=== PATIENT | female | born 1930 | race Asian ===

== ENCOUNTER 2018-02-14 15:24 | Inpatient (IN) | payer OTHER ==
[2018-02-14 15:34] VITALS: BMI 23.8
[2018-02-14 17:24] LABS: BASO % 1.1 % (0-2.0); HEMATOCRIT 34.7 % (32.4-45.2); HEMOGLOBIN 11.7 GM/dL (10.7-15.3); LYMPH % 24.6 % (8-40); MCH 30.2 pg (25.7-33.7); MCHC 33.7 g/dl (32.0-36.0); MEAN CELL VOLUME 89.7 fl (80-96); MONO % 11.1 % (3.8-10.2); NEUT % 60.2 % (42.8-82.8); PLATELET COUNT 264 K/MM3 (134-434); RBC 3.87 M/mm3 (3.60-5.2); RDW 14.2 % (11.6-15.6); WHITE BLOOD COUNT 5.6 K/mm3 (4.0-10.0)
[2018-02-14 17:28] LABS: INR 0.97 (0.82-1.09)
--- NOTE | 2018-02-14 17:32 | PDOC ---
Attending Attestation - Resident Resident Name: Gordo Doherty - ED Attending Attestation I have performed the following: I have examined & evaluated the patient, The case was reviewed & discussed with the resident, I agree w/resident's findings & plan, Exceptions are as noted - HPI HPI: 02/14/18 18:49 Ms Lazaro is an 87 yo F with a history of HTN, HLD, Seizure D/o, Alzheimers dementia Presenting to the ER with reported chest pain Pt is poor historian and can not give historical details about what happened today Pt pmd sent her to the Er unable to contact him for any additional details - Physicial Exam PE: 02/14/18 18:51 GENERAL: The patient is in no acute distress, pleasant, awake and alert. HEAD: Normal EYES: PERRLA, EOMI, sclera anicteric, conjunctiva clear. ENT: Ears normal, nares patent, oropharynx clear without exudates. Moist mucous membranes. LUNGS: Breath sounds equal, clear to auscultation bilaterally. HEART: Bradycardiac, no murmur appreciated ABDOMEN: Soft, nontender, normoactive bowel sounds. No guarding, no rebound. EXTREMITIES: Normal range of motion, no edema. NEUROLOGICAL: Cranial nerves II through XII grossly intact. Normal speech. No focal neurological deficits. - Medical Decision Making 02/14/18 18:53 87 yo F with reported chest pain Laboratory Tests 02/14/18 02/14/18 02/14/18 16:42 16:42 16:42 WBC 5.6 Hgb 11.7 Hct 34.7 Plt Count 264 Neutrophils % 60.2 Lymphocytes % 24.6 INR 0.97 BUN 36 H Creatinine 1.3 H Creatine Kinase 132 Troponin I < 0.02 EKG: Junctional rhythm rate of 49 bpm, no st elevations or depressions, t wave upright Laboratory Tests 10/08/12 02/14/18 12:40 16:42 Creatinine 0.6 1.3 H Creatinine elevation however last time labs drawn was 6 years ago... clinical impression: chest pain, initial presentation bradycardia, initial presentation
--- NOTE | 2018-02-14 17:32 | PDOC ---
History of Present Illness - General Chief Complaint: Chest Pain Stated Complaint: CHEST PAIN,AMS Time Seen by Provider: 02/14/18 16:08 History Source: Patient Exam Limitations: No Limitations - History of Present Illness Initial Comments: 02/14/18 18:15 The patient is a 87F with a PMH of dementia (nonverbal), HLD who presents with her son. The son states that they called Dr. William Martinez who recommended the patient to come to our ER. The patient denies any acute complaints but cannot verbalize anything. The son denies any acute complaints but states that the patient has had generalized weakness, as well as R leg weakness which has been going on for months. ROS cannot be completed 2/2 patient's nonverbal state. Past History - Past Medical History Allergies/Adverse Reactions: Allergies Allergy/AdvReac Type Severity Reaction Status Date / Time No Known Allergies Allergy Verified 02/14/18 15:29 Home Medications: Ambulatory Orders Donepezil HCl [Aricept Odt] 10 mg PO HS 09/18/12 Escitalopram Oxalate [Lexapro] 10 mg PO DAILY 09/18/12 Olmesartan Medoxomil [Benicar] 10 mg PO DAILY 09/18/12 Phenobarbital 30 mg PO BID 09/18/12 levETIRAcetam [Keppra] 500 mg PO BID 09/18/12 Acetaminophen Oral Solution [Tylenol *Oral Solution*] 650 mg PO Q4H 10/08/12 Bisacodyl [Dulcolax] 10 mg RC DAILY PRN 10/08/12 Cholecalciferol (Vitamin D3) [Vitamin D] 2,000 unit PO DAILY 10/08/12 Docusate Sodium [Colace] 100 mg PO DAILY 10/08/12 Docusate Sodium [Colace] 200 mg PO BID 10/08/12 Mag Hydrox/Al Hydrox/Simeth [Mylanta] 30 ml GT Q4H PRN 10/08/12 Magnesium Hydroxide [Milk of Magnesia] 30 ml PO DAILY PRN 10/08/12 Multivitamins with Iron [Tab-A-Emeka with Iron] 1 each PO DAILY 10/08/12 Polyethylene Glycol 3350 [Miralax 255 gm Btl] 17 gm PO DAILY 10/08/12 COPD: No Dementia: Yes HTN: Yes Hypercholesterolemia: Yes Seizures: Yes - Suicide/Smoking/Psychosocial Hx Smoking Status: No Smoking History: Never smoked Number of Cigarettes Smoked Daily: 0 Hx Alcohol Use: No Drug/Substance Use Hx: No Review of Systems - Review of Systems Able to Perform ROS?: No (nonverbal) Is the patient limited Romanian proficient: No *Physical Exam - Vital Signs Last Vital Signs Temp Pulse Resp BP Pulse Ox 98.3 F 49 L 19 127/42 99 02/14/18 15:30 02/14/18 15:30 02/14/18 15:30 02/14/18 15:30 02/14/18 15:30 - Physical Exam Comments: 02/14/18 18:32 GENERAL: Well developed, well nourished. Awake and alert. No acute distress. HEENT: Normocephalic, atraumatic. Hearing grossly normal. Moist mucous membranes. PERRLA, EOMI. No conjunctival pallor. Sclera are non-icteric. NECK: Supple. Full ROM. No JVD. CARDIOVASCULAR: Bradycardic with regular rhythm. No murmurs, rubs, or gallops. PULMONARY: No evidence of respiratory distress. Lungs clear to auscultation bilaterally. No wheezing, rales or rhonchi. ABDOMINAL: Soft. Non-tender. Non-distended. No rebound or guarding. MUSCULOSKELETAL: Normal range of motion at all joints. No bony deformities or tenderness. EXTREMITIES: No cyanosis. No clubbing. No edema. No calf tenderness. SKIN: Warm and dry. Normal capillary refill. No rashes. No jaundice. NEUROLOGICAL: Alert, awake, appropriate. Cranial nerves 2-12 intact. PSYCHIATRIC: Cooperative. Good eye contact. Appropriate mood and affect. Heart Score/ECG Review #1 ECG reviewed & interpreted by me at: 15:30 General ECG Interpretation: Sinus Rhythm, Normal Rate, Normal Intervals, No acute ischemic changes Compared to previous ECG there are: Changes noted (Previous EKG is NSR in 2012) 02/14/18 18:34 Junctional rhythm Rate 49 QRS 64 QTc 431 No acute ischemic changes ED Treatment Course - LABORATORY CBC & Chemistry Diagram: 02/14/18 16:42 02/14/18 16:42 - RADIOLOGY Radiology Studies Ordered: Category Date Time Status CHEST X-RAY PORTABLE* [RAD] Stat Radiology 02/14/18 16:36 Ordered Medical Decision Making - Medical Decision Making 02/14/18 16:33 The patient is an 87F with a PMH of Alzheimer's dementia who presents to the ER under the instruction of Dr. Martinez for an unsure reason. The son cannot provide any history as he does not know why the patient was sent here. Dr. Martinez has been paged. 02/14/18 18:45 I have spoken with Dr. Martinez who states that the patient has had CP that has been intermittent and worsening today and he is requesting her admission. Dr. Crespo accepts admission for a [facility] bed. *DC/Admit/Observation/Transfer Diagnosis at time of Disposition: Chest pain Qualifiers: Chest pain type: unspecified Qualified Code(s): R07.9 - Chest pain, unspecified - Discharge Dispostion Condition at time of disposition: Guarded Admit: Yes - Referrals - Patient Instructions - Post Discharge Activity
[2018-02-14 17:54] LABS: ALBUMIN 3.9 g/dl (3.4-5.0); ANION GAP 7 (8-16); BILIRUBIN,TOTAL 0.3 mg/dL (0.2-1.0); BLOOD UREA NITROGEN 36 mg/dL (7-18); CALCIUM 8.9 mg/dL (8.5-10.1); CHLORIDE 103 mmol/L (98-107); CO2 29 mmol/L (21-32); CREATININE 1.3 mg/dL (0.55-1.02); GLUCOSE,RANDOM 92 mg/dL (74-106); SGOT/AST 29 U/L (15-37); SGPT/ALT 8 U/L (12-78); SODIUM 139 mmol/L (136-145); TOT PROT 7.4 g/dl (6.4-8.2)
[2018-02-14 17:57] LABS: ALK PHOS 75 U/L (45-117)
[2018-02-14 22:21] LABS: URINE APPEARANCE CLEAR; URINE BILIRUBIN NEGATIVE (<2.0 mg/dL); URINE BLOOD NEGATIVE (NEGATIVE); URINE COLOR YELLOW; URINE GLUCOSE (UA) NEGATIVE (NEGATIVE); URINE KETONE TRACE (NEGATIVE); URINE LEUK ESTERASE NEGATIVE (NEGATIVE); URINE NITRITE NEGATIVE (NEGATIVE); URINE PROTEIN NEGATIVE (NEGATIVE)
[2018-02-15] MEDS ORDERED: MAGNESIUM HYDROX 2400MG/30ML ORAL SUSPENSION 30 ML CUP PO PRN (02:15)
[2018-02-15] MEDS: PHENobarbital 30 MG TABLET PO SCH ×2 (06:50→21:22)
[2018-02-15] MEDS: MULTIVITAMINS THER W-MINERALS COMBO TABLET (FP) PO SCH (06:51)
[2018-02-15] MEDS: VALSARTAN 80 MG TABLET (UD) PO SCH (06:51)
[2018-02-15] MEDS: levETIRAcetam 500 MG TABLET (FP) PO SCH ×2 (06:51→21:22)
[2018-02-15] MEDS: CHOLECALCIFEROL (VITAMIN D3) 1,000 UNIT TABLET (FP) PO SCH (06:51)
[2018-02-15] MEDS: DOCUSATE SODIUM 100 MG CAPSULE (FP) PO SCH (06:51)
[2018-02-15] MEDS: ESCITALOPRAM OXALATE 10 MG TABLET (FP) PO SCH (06:51)
[2018-02-15 08:43] LABS: BASO % 1.1 % (0-2.0); EOS % 4.2 % (0-4.5); HEMATOCRIT 32.2 % (32.4-45.2); HEMOGLOBIN 10.6 GM/dL (10.7-15.3); LYMPH % 23.4 % (8-40); MCH 29.7 pg (25.7-33.7); MEAN CELL VOLUME 90.2 fl (80-96); MEAN PLT VOLUME 8.9 fl (7.5-11.1); MONO % 10.8 % (3.8-10.2); NEUT % 60.5 % (42.8-82.8); PLATELET COUNT 242 K/MM3 (134-434); RBC 3.57 M/mm3 (3.60-5.2); RDW 14.5 % (11.6-15.6); WHITE BLOOD COUNT 4.8 K/mm3 (4.0-10.0)
--- NOTE | 2018-02-15 09:21 | EKG ---
Test Reason : Blood Pressure : / mmHG Vent. Rate : 049 BPM Atrial Rate : 300 BPM P-R Int : 000 ms QRS Dur : 064 ms QT Int : 478 ms P-R-T Axes : 000 004 047 degrees QTc Int : 431 ms POOR DATA QUALITY, INTERPRETATION MAY BE ADVERSELY AFFECTED MARKED SINUS BRADYCARDIA ABNORMAL ECG Confirmed by ESTELLA TIJERINA MD ([id number]) on 02/15/2018 9:20:44 AM Referred By: Confirmed By:ESTELLA TIJERINA MD
--- NOTE | 2018-02-15 10:18 | CON.CARD ---
Consult Consult Specialty:: Cardiology (Coverage for Dr. Carver) Referred by:: Dr. Crespo Reason for Consultation:: Cardiac evaluation - History of Present Illness Chief Complaint: Chest pain History of Present Illness: Patient is an 87 year old female with underlying history of hypertension, hypercholesterolemia, seizure disorder and organic brain/dementia who presents to [facility] with chest pain reported on ER note. She is nonverbal and is not able to provide any history. ECG revealed probable marked sinus bradycardia instead of junctional as read by the automatic reading on ECG. She appears to be comfortable this am on telemetry. No events were reported last night. 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 Cardio/Vascular: Yes: HTN - Past Surgical History Past Surgical History: Yes: None - Alcohol/Substance Use Hx Alcohol Use: No - Smoking History Smoking history: Never smoked Aproximately how many cigarettes per day: 0 Home Medications - Allergies Allergies/Adverse Reactions: Allergies Allergy/AdvReac Type Severity Reaction Status Date / Time No Known Allergies Allergy Verified 02/14/18 15:29 - Home Medications Home Medications: Ambulatory Orders Donepezil HCl [Aricept Odt] 10 mg PO HS 09/18/12 Escitalopram Oxalate [Lexapro] 10 mg PO DAILY 09/18/12 Olmesartan Medoxomil [Benicar] 10 mg PO DAILY 09/18/12 Phenobarbital 30 mg PO BID 09/18/12 levETIRAcetam [Keppra] 500 mg PO BID 09/18/12 Acetaminophen Oral Solution [Tylenol *Oral Solution*] 650 mg PO Q4H 10/08/12 Bisacodyl [Dulcolax] 10 mg RC DAILY PRN 10/08/12 Cholecalciferol (Vitamin D3) [Vitamin D] 2,000 unit PO DAILY 10/08/12 Docusate Sodium [Colace] 100 mg PO DAILY 10/08/12 Docusate Sodium [Colace] 200 mg PO BID 10/08/12 Mag Hydrox/Al Hydrox/Simeth [Mylanta] 30 ml GT Q4H PRN 10/08/12 Magnesium Hydroxide [Milk of Magnesia] 30 ml PO DAILY PRN 10/08/12 Multivitamins with Iron [Tab-A-Emeka with Iron] 1 each PO DAILY 10/08/12 Polyethylene Glycol 3350 [Miralax 255 gm Btl] 17 gm PO DAILY 10/08/12 Family Disease History - Family Disease History Family History: Denies Review of Systems Unable to obtain ROS, reason: Unable to obtain Vital Signs: Vital Signs Temperature 97.6 F 02/15/18 10:00 Pulse Rate 56 L 02/15/18 10:00 Respiratory Rate 16 02/15/18 10:00 Blood Pressure 157/61 02/15/18 10:00 O2 Sat by Pulse Oximetry (%) 98 02/15/18 09:00 Neck: Yes: Supple Respiratory: Yes: Diminished Gastrointestinal: Yes: Normal Bowel Sounds, Soft. No: Tenderness Cardiovascular: Yes: Regular Rate and Rhythm, Bradycardia JVD: No Carotid Bruit: No PMI: Non-Displaced Heart Sounds: Yes: S1, S2. No: Gallop Edema: No - Other Data Labs, Other Data: CBC, BMP 02/15/18 07:40 02/14/18 16:42 INR, PTT INR 0.97 (0.82-1.09) 02/14/18 16:42 Troponin, BNP 02/14/18 02/15/18 16:42 03:00 Troponin I < 0.02 < 0.02 Laboratory Results - last 24 hr 02/14/18 02/14/18 02/14/18 16:42 16:42 16:42 WBC 5.6 RBC 3.87 Hgb 11.7 Hct 34.7 MCV 89.7 MCH 30.2 MCHC 33.7 RDW 14.2 Plt Count 264 MPV 9.0 D Neutrophils % 60.2 Lymphocytes % 24.6 Monocytes % 11.1 H Eosinophils % 3.0 Basophils % 1.1 D PT with INR 11.00 INR 0.97 Sodium 139 Potassium 4.0 Chloride 103 Carbon Dioxide 29 Anion Gap 7 L BUN 36 H Creatinine 1.3 H Creat Clearance w eGFR 38.93 Random Glucose 92 Calcium 8.9 Total Bilirubin 0.3 AST 29 ALT 8 L Alkaline Phosphatase 75 Creatine Kinase 132 Troponin I < 0.02 Total Protein 7.4 Albumin 3.9 TSH Urine Color Urine Appearance Urine pH Ur Specific [place] Urine Protein Urine Glucose (UA) Urine Ketones Urine Blood Urine Nitrite Urine Bilirubin Urine Urobilinogen Ur Leukocyte Esterase 04/07/18 04/08/18 04/08/18 21:13 03:00 07:40 WBC 4.8 RBC 3.57 L Hgb 10.6 L Hct 32.2 L MCV 90.2 MCH 29.7 MCHC 33.0 RDW 14.5 Plt Count 242 MPV 8.9 Neutrophils % 60.5 Lymphocytes % 23.4 Monocytes % 10.8 H Eosinophils % 4.2 Basophils % 1.1 PT with INR INR Sodium Potassium Chloride Carbon Dioxide Anion Gap BUN Creatinine Creat Clearance w eGFR Random Glucose Calcium Total Bilirubin AST ALT Alkaline Phosphatase Creatine Kinase 145 Troponin I < 0.02 Total Protein Albumin TSH Urine Color Yellow Urine Appearance Clear Urine pH 5.0 Ur Specific [place] 1.018 Urine Protein Negative Urine Glucose (UA) Negative Urine Ketones Trace H Urine Blood Negative Urine Nitrite Negative Urine Bilirubin Negative Urine Urobilinogen 2.0 H Ur Leukocyte Esterase Negative Sinus bradycardia, no ST-T abnormality Imaging - Results Chest X-ray: Report Reviewed (Cardiomegaly, atelectasis) EKG: Report Reviewed Problem List - Problems (1) Sinus bradycardia Code(s): R00.1 - BRADYCARDIA, UNSPECIFIED (2) Seizure disorder Code(s): G40.909 - EPILEPSY, UNSP, NOT INTRACTABLE, WITHOUT STATUS EPILEPTICUS (3) Organic brain syndrome Code(s): F09 - UNSP MENTAL DISORDER DUE TO KNOWN PHYSIOLOGICAL CONDITION (4) Dementia Code(s): F03.90 - UNSPECIFIED DEMENTIA WITHOUT BEHAVIORAL DISTURBANCE (5) Chest pain Code(s): R07.9 - CHEST PAIN, UNSPECIFIED Qualifiers: Chest pain type: unspecified Qualified Code(s): R07.9 - Chest pain, unspecified Assessment/Plan 1. Chest pain syndrome 2. Hypertension 3. Seizure disorder 4. Organic brain syndrome/dementia PLAN: 1. Continue Valsartan (alternative to Olmesartan) and up-titrate 2. Avoid AV braina agent in view of bradycardia 3. Continue telemetry monitoring 4. Seizure medications 5. Transthoracic echocardiography to assess LV/RV and valvular function Further plans are to follow. Discussed with her daughter via telephone Toni Mello MD
--- NOTE | 2018-02-15 12:02 | HP ---
Admitting History and Physical - Admission History of Present Illness: Pt is a 87 y/o female w/ PMH significant for HTN, HLD, seizure dz and dementia. Pt unable to give any history. Pt lives at home w/ her and for the past few weeks has been more confused. As per family pt also has been having intermittent chest pain. Family denies any cough/SOB/wheezing/fever/chills. 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 Cardiovascular: Yes: HTN, Hyperlipdemia Psych: Yes: Depression - Past Surgical History Past Surgical History: Yes: None - Smoking History Smoking history: Never smoked Aproximately how many cigarettes per day: 0 - Alcohol/Substance Use Hx Alcohol Use: No Home Medications - Allergies Allergies/Adverse Reactions: Allergies Allergy/AdvReac Type Severity Reaction Status Date / Time No Known Allergies Allergy Verified 02/14/18 15:29 - Home Medications Home Medications: Ambulatory Orders Donepezil HCl [Aricept Odt] 10 mg PO HS 09/18/12 Escitalopram Oxalate [Lexapro] 10 mg PO DAILY 09/18/12 Olmesartan Medoxomil [Benicar] 10 mg PO DAILY 09/18/12 Phenobarbital 30 mg PO BID 09/18/12 levETIRAcetam [Keppra] 500 mg PO BID 09/18/12 Acetaminophen Oral Solution [Tylenol *Oral Solution*] 650 mg PO Q4H 10/08/12 Bisacodyl [Dulcolax] 10 mg RC DAILY PRN 10/08/12 Cholecalciferol (Vitamin D3) [Vitamin D] 2,000 unit PO DAILY 10/08/12 Docusate Sodium [Colace] 100 mg PO DAILY 10/08/12 Docusate Sodium [Colace] 200 mg PO BID 10/08/12 Mag Hydrox/Al Hydrox/Simeth [Mylanta] 30 ml GT Q4H PRN 10/08/12 Magnesium Hydroxide [Milk of Magnesia] 30 ml PO DAILY PRN 10/08/12 Multivitamins with Iron [Tab-A-Emeka with Iron] 1 each PO DAILY 10/08/12 Polyethylene Glycol 3350 [Miralax 255 gm Btl] 17 gm PO DAILY 10/08/12 Family Disease History - Family Disease History Family History: Unable to Obtain (Dementia) Review of Systems Unable to obtain ROS, reason: Dementia Physical Examination Vital Signs: Vital Signs Temperature 97.6 F 02/15/18 10:00 Pulse Rate 56 L 02/15/18 10:00 Respiratory Rate 16 02/15/18 10:00 Blood Pressure 157/61 02/15/18 10:00 O2 Sat by Pulse Oximetry (%) 98 02/15/18 09:00 Constitutional: Yes: No Distress HENT: Yes: WNL Neck: Yes: WNL Cardiovascular: Yes: WNL, Regular Rate and Rhythm Respiratory: Yes: WNL, Regular, CTA Bilaterally Gastrointestinal: Yes: WNL, Normal Bowel Sounds, Soft Extremities: Yes: WNL Edema: No Neurological: Yes: Other (Awake) ...Motor Strength: WNL Labs: CBC, BMP 02/15/18 07:40 02/14/18 16:42 Problem List - Problems (1) Chest pain Assessment/Plan: Admit to tlee Serial cpk/troponin to r/o ACS Cardio consult Check echo Code(s): R07.9 - CHEST PAIN, UNSPECIFIED Qualifiers: Chest pain type: unspecified Qualified Code(s): R07.9 - Chest pain, unspecified (2) ARF (acute renal failure) Assessment/Plan: ?Due to dehydration Cont IVF Code(s): N17.9 - ACUTE KIDNEY FAILURE, UNSPECIFIED (3) HTN (hypertension) Assessment/Plan: BP stable Cont diovan Code(s): I10 - ESSENTIAL (PRIMARY) HYPERTENSION (4) HLD (hyperlipidemia) Code(s): E78.5 - HYPERLIPIDEMIA, UNSPECIFIED (5) Dementia Assessment/Plan: Cont aricept Code(s): F03.90 - UNSPECIFIED DEMENTIA WITHOUT BEHAVIORAL DISTURBANCE (6) Seizure disorder Assessment/Plan: Cont phenobarb/keppra Code(s): G40.909 - EPILEPSY, UNSP, NOT INTRACTABLE, WITHOUT STATUS EPILEPTICUS
--- NOTE | 2018-02-15 18:37 | CONSULT ---
Consult - text type - Consultation Consultation Note: NEUROLOGY CONSULTATION is greatly appreciated: This 87 yo RH woman with h/o HTN, Chol, depression and severe OMS with seizure disorder is maintained on valsartan, donepezil, lexapro, levetiracetam (500 BID) and Phenobarbital (30 BID). Family complained to PMD (Julianne Martinez) about deterioration in speech and increased weakness of the right leg. No obvious sign of infection. ELISA: No bruits. Cor reg. No skin breakdown NEURO: Awake, alert, attentive and cooperative. Follows no commands. Repeats "Hello." No frontal release findings. Decreased blink to threat from the right. No facial. Gag OK Right hand is contracted. Increased tone (rigidity) R>L. Right foot rests internally rotated. Depressed reflexes. Right Babinski. Withdraws all fours to pinch. IMP: Moderate, bilateral, cerebral dysfunction. 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 Thank you very much, Grupo Medina MD
[2018-02-15] MEDS: DONEPEZIL HCL 10 MG TABLET (FP) PO SCH (21:22)
[2018-02-15] MEDS: HEPARIN NA (PORCINE) 5,000 UNITS/ML 1ML VIAL SQ SCH (21:22)
[2018-02-16 06:31] LABS: EOS % 3.6 % (0-4.5); HEMATOCRIT 31.5 % (32.4-45.2); HEMOGLOBIN 10.8 GM/dL (10.7-15.3); LYMPH % 37.4 % (8-40); MCH 30.7 pg (25.7-33.7); MCHC 34.2 g/dl (32.0-36.0); MEAN CELL VOLUME 89.8 fl (80-96); MEAN PLT VOLUME 9.2 fl (7.5-11.1); MONO % 11.7 % (3.8-10.2); NEUT % 46.3 % (42.8-82.8); PLATELET COUNT 250 K/MM3 (134-434); RBC 3.51 M/mm3 (3.60-5.2); RDW 14.2 % (11.6-15.6); WHITE BLOOD COUNT 5.8 K/mm3 (4.0-10.0)
[2018-02-16 07:08] LABS: ALBUMIN 3.6 g/dl (3.4-5.0); ANION GAP 9 (8-16); BILIRUBIN,TOTAL 0.4 mg/dL (0.2-1.0); BLOOD UREA NITROGEN 41 mg/dL (7-18); CHLORIDE 106 mmol/L (98-107); CO2 28 mmol/L (21-32); CREATININE 1.6 mg/dL (0.55-1.02); GLUCOSE,RANDOM 80 mg/dL (74-106); POTASSIUM 4.5 mmol/L (3.5-5.1); SGOT/AST 31 U/L (15-37); SGPT/ALT 7 U/L (12-78); SODIUM 143 mmol/L (136-145)
[2018-02-16 07:09] LABS: ALK PHOS 65 U/L (45-117); TOT PROT 6.8 g/dl (6.4-8.2)
--- NOTE | 2018-02-16 08:34 | PN ---
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, Physician Chief Complaint: TELE: Sinus john Enzymes negative x 2 - Current Medication List Current Medications: Active Medications Cholecalciferol (Vitamin D3 -) 2,000 unit PO DAILY [facility] Last Admin: 02/15/18 06:51 Dose: 2,000 unit Docusate Sodium (Colace -) 100 mg PO DAILY [facility] Last Admin: 02/15/18 06:51 Dose: 100 mg Donepezil HCl (Aricept -) 10 mg PO HS [facility] Last Admin: 02/15/18 21:22 Dose: 10 mg Escitalopram Oxalate (Lexapro -) 10 mg PO DAILY [facility] Last Admin: 02/15/18 06:51 Dose: 10 mg Heparin Sodium (Porcine) (Heparin -) 5,000 unit SQ BID [facility] Last Admin: 02/15/18 21:22 Dose: 5,000 unit Levetiracetam (Keppra -) 500 mg PO BID [facility] Last Admin: 02/15/18 21:22 Dose: 500 mg Magnesium Hydroxide (Milk Of Magnesia -) 30 ml PO DAILY PRN PRN Reason: CONSTIPATION Multivitamins/Minerals (Theragran-M) 1 each PO DAILY [facility] Last Admin: 02/15/18 06:51 Dose: 1 each Phenobarbital (Phenobarbital -) 30 mg PO BID [facility] Last Admin: 02/15/18 21:22 Dose: 30 mg Valsartan (Diovan -) 80 mg PO DAILY [facility] Last Admin: 02/15/18 06:51 Dose: 80 mg - Objective Vital Signs: Vital Signs Temperature 97.4 F L 02/16/18 06:00 Pulse Rate 64 02/16/18 06:00 Respiratory Rate 20 02/16/18 06:00 Blood Pressure 108/72 02/16/18 06:00 O2 Sat by Pulse Oximetry (%) 95 02/15/18 21:00 Constitutional: Yes: Calm Cardiovascular: Yes: Regular Rate and Rhythm Respiratory: Yes: CTA Bilaterally Gastrointestinal: Yes: Soft Edema: No Neurological: Yes: Alert, Oriented, Other (nonverbal) Labs: CBC, BMP 02/16/18 06:00 02/16/18 06:00 INR, PTT INR 0.97 (0.82-1.09) 02/14/18 16:42 - ....Imaging EKG: Image Reviewed Assessment/Plan 1. Chest pain syndrome 2. Hypertension 3. Seizure disorder 4. Organic brain syndrome/dementia PLAN: 1. Continue Valsartan (alternative to Olmesartan) and up-titrate 2. Avoid AV briana agent in view of bradycardia 3. D/C Tele 4. Seizure medications 5. Transthoracic echocardiography to assess LV/RV and valvular function
[2018-02-16] MEDS: MULTIVITAMINS THER W-MINERALS COMBO TABLET (FP) PO SCH (09:14)
[2018-02-16] MEDS: levETIRAcetam 500 MG TABLET (FP) PO SCH ×2 (09:14→21:34)
[2018-02-16] MEDS: VALSARTAN 80 MG TABLET (UD) PO SCH (09:14)
[2018-02-16] MEDS: PHENobarbital 30 MG TABLET PO SCH ×2 (09:14→21:34)
[2018-02-16] MEDS: ESCITALOPRAM OXALATE 10 MG TABLET (FP) PO SCH (09:15)
[2018-02-16] MEDS: CHOLECALCIFEROL (VITAMIN D3) 1,000 UNIT TABLET (FP) PO SCH (09:15)
[2018-02-16] MEDS: DOCUSATE SODIUM 100 MG CAPSULE (FP) PO SCH (09:15)
[2018-02-16] MEDS: HEPARIN NA (PORCINE) 5,000 UNITS/ML 1ML VIAL SQ SCH ×2 (09:40→21:34)
[2018-02-16] MEDS: DONEPEZIL HCL 10 MG TABLET (FP) PO SCH (21:34)
--- NOTE | 2018-02-16 23:44 | PN ---
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, Physician - Current Medication List Current Medications: Active Medications Cholecalciferol (Vitamin D3 -) 2,000 unit PO DAILY [facility] Last Admin: 02/16/18 09:15 Dose: 2,000 unit Docusate Sodium (Colace -) 100 mg PO DAILY [facility] Last Admin: 02/16/18 09:15 Dose: 100 mg Donepezil HCl (Aricept -) 10 mg PO HS [facility] Last Admin: 02/16/18 21:34 Dose: 10 mg Escitalopram Oxalate (Lexapro -) 10 mg PO DAILY [facility] Last Admin: 02/16/18 09:15 Dose: 10 mg Heparin Sodium (Porcine) (Heparin -) 5,000 unit SQ BID [facility] Last Admin: 02/16/18 21:34 Dose: 5,000 unit Levetiracetam (Keppra -) 500 mg PO BID [facility] Last Admin: 02/16/18 21:34 Dose: 500 mg Magnesium Hydroxide (Milk Of Magnesia -) 30 ml PO DAILY PRN PRN Reason: CONSTIPATION Multivitamins/Minerals (Theragran-M) 1 each PO DAILY [facility] Last Admin: 02/16/18 09:14 Dose: 1 each Phenobarbital (Phenobarbital -) 30 mg PO BID [facility] Last Admin: 02/16/18 21:34 Dose: 30 mg Valsartan (Diovan -) 80 mg PO DAILY [facility] Last Admin: 02/16/18 09:14 Dose: 80 mg - Objective Vital Signs: Vital Signs Temperature 97.7 F 02/16/18 20:35 Pulse Rate 57 L 02/16/18 20:35 Respiratory Rate 20 02/16/18 20:36 Blood Pressure 136/60 02/16/18 20:35 O2 Sat by Pulse Oximetry (%) 94 L 02/16/18 20:36 Labs: CBC, BMP 02/16/18 06:00 02/16/18 06:00 INR, PTT INR 0.97 (0.82-1.09) 02/14/18 16:42 Problem List - Problems (1) Chest pain Code(s): R07.9 - CHEST PAIN, UNSPECIFIED Qualifiers: Chest pain type: unspecified Qualified Code(s): R07.9 - Chest pain, unspecified (2) ARF (acute renal failure) Code(s): N17.9 - ACUTE KIDNEY FAILURE, UNSPECIFIED (3) HTN (hypertension) Code(s): I10 - ESSENTIAL (PRIMARY) HYPERTENSION (4) HLD (hyperlipidemia) Code(s): E78.5 - HYPERLIPIDEMIA, UNSPECIFIED (5) Dementia Code(s): F03.90 - UNSPECIFIED DEMENTIA WITHOUT BEHAVIORAL DISTURBANCE (6) Seizure disorder Code(s): G40.909 - EPILEPSY, UNSP, NOT INTRACTABLE, WITHOUT STATUS EPILEPTICUS
--- NOTE | 2018-02-17 09:23 | PN ---
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, Physician Chief Complaint: resting comfortably Having echo done. - Current Medication List Current Medications: Active Medications Cholecalciferol (Vitamin D3 -) 2,000 unit PO DAILY [facility] Last Admin: 02/16/18 09:15 Dose: 2,000 unit Docusate Sodium (Colace -) 100 mg PO DAILY [facility] Last Admin: 02/16/18 09:15 Dose: 100 mg Donepezil HCl (Aricept -) 10 mg PO HS [facility] Last Admin: 02/16/18 21:34 Dose: 10 mg Escitalopram Oxalate (Lexapro -) 10 mg PO DAILY [facility] Last Admin: 02/16/18 09:15 Dose: 10 mg Heparin Sodium (Porcine) (Heparin -) 5,000 unit SQ BID [facility] Last Admin: 02/16/18 21:34 Dose: 5,000 unit Levetiracetam (Keppra -) 500 mg PO BID [facility] Last Admin: 02/16/18 21:34 Dose: 500 mg Magnesium Hydroxide (Milk Of Magnesia -) 30 ml PO DAILY PRN PRN Reason: CONSTIPATION Multivitamins/Minerals (Theragran-M) 1 each PO DAILY [facility] Last Admin: 02/16/18 09:14 Dose: 1 each Phenobarbital (Phenobarbital -) 30 mg PO BID [facility] Last Admin: 02/16/18 21:34 Dose: 30 mg Valsartan (Diovan -) 80 mg PO DAILY [facility] Last Admin: 02/16/18 09:14 Dose: 80 mg - Objective Vital Signs: Vital Signs Temperature 97.9 F 02/17/18 05:48 Pulse Rate 55 L 02/17/18 05:48 Respiratory Rate 20 02/17/18 05:48 Blood Pressure 131/59 02/17/18 05:48 O2 Sat by Pulse Oximetry (%) 94 L 02/16/18 20:36 Constitutional: Yes: Calm Cardiovascular: Yes: Regular Rate and Rhythm Respiratory: Yes: CTA Bilaterally Gastrointestinal: Yes: Soft Edema: No Neurological: Yes: Alert Labs: CBC, BMP 02/16/18 06:00 02/16/18 06:00 INR, PTT INR 0.97 (0.82-1.09) 02/14/18 16:42 Laboratory Tests 02/14/18 02/15/18 02/16/18 16:42 03:00 06:00 WBC Hgb Plt Count Sodium 143 Potassium 4.5 Creatinine 1.6 H Creatine Kinase 132 145 Troponin I < 0.02 < 0.02 02/16/18 02/16/18 06:00 06:00 WBC 5.8 Hgb 10.8 Plt Count 250 Sodium Potassium Creatinine Creatine Kinase 292 H Troponin I < 0.02 Assessment/Plan Assessment/Plan 1. Chest pain syndrome 2. Hypertension 3. Seizure disorder 4. Organic brain syndrome/dementia PLAN: 1. Continue Valsartan (alternative to Olmesartan), BP well controlled. 2. Avoid AV briana agent in view of bradycardia 3. D/C Tele 4. Seizure medications 5. Transthoracic echocardiography to assess LV/RV and valvular function being done today
[2018-02-17] MEDS: levETIRAcetam 500 MG TABLET (FP) PO SCH ×2 (09:58→21:17)
[2018-02-17] MEDS: ESCITALOPRAM OXALATE 10 MG TABLET (FP) PO SCH (09:59)
[2018-02-17] MEDS: MULTIVITAMINS THER W-MINERALS COMBO TABLET (FP) PO SCH (09:59)
[2018-02-17] MEDS: CHOLECALCIFEROL (VITAMIN D3) 1,000 UNIT TABLET (FP) PO SCH (09:59)
[2018-02-17] MEDS: DOCUSATE SODIUM 100 MG CAPSULE (FP) PO SCH (09:59)
[2018-02-17] MEDS: PHENobarbital 30 MG TABLET PO SCH ×2 (09:59→21:17)
[2018-02-17] MEDS: VALSARTAN 80 MG TABLET (UD) PO SCH (09:59)
[2018-02-17] MEDS: HEPARIN NA (PORCINE) 5,000 UNITS/ML 1ML VIAL SQ SCH ×2 (10:01→21:17)
[2018-02-17] MEDS ORDERED: CEFTRIAXONE 1 GM in DEXTROSE 5%-WATER - 50 ML IVPB SCH (16:00)
[2018-02-17] MEDS ORDERED: DEXTROSE 5%-WATER - 50 ML IVPB ONE (16:32)
[2018-02-17] MEDS ORDERED: cefTRIAXone SODIUM 1 GM VIAL ONE (16:32)
[2018-02-17] MEDS: DONEPEZIL HCL 10 MG TABLET (FP) PO SCH (21:17)
--- NOTE | 2018-02-17 22:20 | PN ---
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, Physician - Current Medication List Current Medications: Active Medications Cholecalciferol (Vitamin D3 -) 2,000 unit PO DAILY [facility] Last Admin: 02/17/18 09:59 Dose: 2,000 unit Docusate Sodium (Colace -) 100 mg PO DAILY [facility] Last Admin: 02/17/18 09:59 Dose: 100 mg Donepezil HCl (Aricept -) 10 mg PO HS [facility] Last Admin: 02/17/18 21:17 Dose: 10 mg Escitalopram Oxalate (Lexapro -) 10 mg PO DAILY [facility] Last Admin: 02/17/18 09:59 Dose: 10 mg Heparin Sodium (Porcine) (Heparin -) 5,000 unit SQ BID [facility] Last Admin: 02/17/18 21:17 Dose: 5,000 unit Ceftriaxone Sodium 1 gm/ (Dextrose) 50 mls @ 100 mls/hr IVPB DAILY [facility] Last Admin: 02/17/18 16:39 Dose: 100 mls/hr Levetiracetam (Keppra -) 500 mg PO BID [facility] Last Admin: 02/17/18 21:17 Dose: 500 mg Magnesium Hydroxide (Milk Of Magnesia -) 30 ml PO DAILY PRN PRN Reason: CONSTIPATION Multivitamins/Minerals (Theragran-M) 1 each PO DAILY [facility] Last Admin: 02/17/18 09:59 Dose: 1 each Phenobarbital (Phenobarbital -) 30 mg PO BID [facility] Last Admin: 02/17/18 21:17 Dose: 30 mg Valsartan (Diovan -) 80 mg PO DAILY [facility] Last Admin: 02/17/18 09:59 Dose: 80 mg - Objective Vital Signs: Vital Signs Temperature 98.8 F 02/17/18 20:04 Pulse Rate 60 02/17/18 20:04 Respiratory Rate 18 02/17/18 21:00 Blood Pressure 121/68 02/17/18 20:04 O2 Sat by Pulse Oximetry (%) 95 02/17/18 21:00 HENT: Yes: WNL Neck: Yes: WNL, Supple Cardiovascular: Yes: WNL, Regular Rate and Rhythm Respiratory: Yes: WNL, Regular, CTA Bilaterally Gastrointestinal: Yes: WNL, Normal Bowel Sounds, Soft Labs: CBC, BMP 02/16/18 06:00 02/16/18 06:00 INR, PTT INR 0.97 (0.82-1.09) 02/14/18 16:42 Problem List - Problems (1) Acute mastoiditis Assessment/Plan: Pt started on IV ceftriaxone ENT consult CT scan head showed acute mastoiditis Code(s): H70.009 - ACUTE MASTOIDITIS WITHOUT COMPLICATIONS, UNSPECIFIED EAR (2) Chest pain Assessment/Plan: Check echo DC tele Code(s): R07.9 - CHEST PAIN, UNSPECIFIED Qualifiers: Chest pain type: unspecified Qualified Code(s): R07.9 - Chest pain, unspecified (3) ARF (acute renal failure) Assessment/Plan: Check labs in am Check renal US Code(s): N17.9 - ACUTE KIDNEY FAILURE, UNSPECIFIED (4) HTN (hypertension) Assessment/Plan: BP stable Cont diovan Code(s): I10 - ESSENTIAL (PRIMARY) HYPERTENSION (5) HLD (hyperlipidemia) Code(s): E78.5 - HYPERLIPIDEMIA, UNSPECIFIED (6) Seizure disorder Assessment/Plan: Cont phenobarb/keppra Code(s): G40.909 - EPILEPSY, UNSP, NOT INTRACTABLE, WITHOUT STATUS EPILEPTICUS (7) Dementia Assessment/Plan: Cont aricept Code(s): F03.90 - UNSPECIFIED DEMENTIA WITHOUT BEHAVIORAL DISTURBANCE
[2018-02-18 06:28] LABS: BASO % 0.8 % (0-2.0); EOS % 4.6 % (0-4.5); HEMATOCRIT 30.4 % (32.4-45.2); HEMOGLOBIN 10.3 GM/dL (10.7-15.3); LYMPH % 27.9 % (8-40); MCH 30.2 pg (25.7-33.7); MCHC 33.9 g/dl (32.0-36.0); MEAN CELL VOLUME 89.1 fl (80-96); MEAN PLT VOLUME 9.1 fl (7.5-11.1); MONO % 13.1 % (3.8-10.2); NEUT % 53.6 % (42.8-82.8); PLATELET COUNT 232 K/MM3 (134-434); RBC 3.41 M/mm3 (3.60-5.2)
[2018-02-18 06:54] LABS: ALBUMIN 3.2 g/dl (3.4-5.0); ALK PHOS 66 U/L (45-117); ANION GAP 9 (8-16); BILIRUBIN,TOTAL 0.3 mg/dL (0.2-1.0); BLOOD UREA NITROGEN 33 mg/dL (7-18); CALCIUM 8.7 mg/dL (8.5-10.1); CHLORIDE 109 mmol/L (98-107); CO2 26 mmol/L (21-32); CREATININE 1.2 mg/dL (0.55-1.02); GLUCOSE,RANDOM 79 mg/dL (74-106); POTASSIUM 4.3 mmol/L (3.5-5.1); SGOT/AST 25 U/L (15-37); SGPT/ALT 8 U/L (12-78); SODIUM 144 mmol/L (136-145); TOT PROT 6.3 g/dl (6.4-8.2)
[2018-02-18] MEDS ORDERED: PT OWN MED DRAWER 7, Y5N ONE (09:44)
[2018-02-18] MEDS: CHOLECALCIFEROL (VITAMIN D3) 1,000 UNIT TABLET (FP) PO SCH (09:52)
[2018-02-18] MEDS: DOCUSATE SODIUM 100 MG CAPSULE (FP) PO SCH (09:53)
[2018-02-18] MEDS: VALSARTAN 80 MG TABLET (UD) PO SCH (09:53)
[2018-02-18] MEDS: MULTIVITAMINS THER W-MINERALS COMBO TABLET (FP) PO SCH (09:53)
[2018-02-18] MEDS: HEPARIN NA (PORCINE) 5,000 UNITS/ML 1ML VIAL SQ SCH ×2 (09:53→21:26)
[2018-02-18] MEDS: levETIRAcetam 500 MG TABLET (FP) PO SCH ×2 (09:53→21:26)
[2018-02-18] MEDS: ESCITALOPRAM OXALATE 10 MG TABLET (FP) PO SCH (09:53)
[2018-02-18] MEDS: PHENobarbital 30 MG TABLET PO SCH ×2 (09:53→21:26)
[2018-02-18] MEDS ORDERED: AMOXICILLIN 500 MG CAPSULE (FP) PO SCH (10:00)
--- NOTE | 2018-02-18 12:31 | CON.ENT ---
Consult Consult Specialty:: ENT Referred by:: Dr. Crespo Reason for Consultation:: mastoiditis noted on CT scan - History of Present Illness Chief Complaint: abnormal CT scan History of Present Illness: 87 yo F admitted for evaluation, hx HTN, hyperlipedemia, seizure disorder and dementia recent change in mental status, also ?chest pain Neurology consultation noted, CT scan of head performed, abnormalities noted including - History Source History Provided By: Medical Record Limitations to Obtaining History: Dementia - Past Medical History [employer]: Yes: Alzheimer's, Dementia, Seizure Cardio/Vascular: Yes: HTN Psych: Yes: Depression - Past Surgical History Past Surgical History: Yes: None - Alcohol/Substance Use Hx Alcohol Use: No - Smoking History Smoking history: Never smoked Aproximately how many cigarettes per day: 0 Home Medications - Allergies Allergies/Adverse Reactions: Allergies Allergy/AdvReac Type Severity Reaction Status Date / Time No Known Allergies Allergy Verified 02/14/18 15:29 - Home Medications Home Medications: Ambulatory Orders Donepezil HCl [Aricept Odt] 10 mg PO HS 09/18/12 Escitalopram Oxalate [Lexapro] 10 mg PO DAILY 09/18/12 Olmesartan Medoxomil [Benicar] 10 mg PO DAILY 09/18/12 Phenobarbital 30 mg PO BID 09/18/12 levETIRAcetam [Keppra] 500 mg PO BID 09/18/12 Acetaminophen Oral Solution [Tylenol *Oral Solution*] 650 mg PO Q4H 10/08/12 Bisacodyl [Dulcolax] 10 mg RC DAILY PRN 10/08/12 Cholecalciferol (Vitamin D3) [Vitamin D] 2,000 unit PO DAILY 10/08/12 Docusate Sodium [Colace] 100 mg PO DAILY 10/08/12 Docusate Sodium [Colace] 200 mg PO BID 10/08/12 Mag Hydrox/Al Hydrox/Simeth [Mylanta] 30 ml GT Q4H PRN 10/08/12 Magnesium Hydroxide [Milk of Magnesia] 30 ml PO DAILY PRN 10/08/12 Multivitamins with Iron [Tab-A-Emeka with Iron] 1 each PO DAILY 10/08/12 Polyethylene Glycol 3350 [Miralax 255 gm Btl] 17 gm PO DAILY 10/08/12 Carbidopa/Levodopa *Cr* 25/100 [Sinemet *Cr* 25/100 -] 25 - 100 mg PO TID Olmesartan/Hydrochlorothiazide [Benicar Hct 20-12.5MG Tab] 1 tab PO DAILY Quetiapine Fumarate [Seroquel -] 25 mg PO BID 02/16/18 Family Disease History - Family Disease History Family History: Unable to Obtain Physical Exam-ENT Vital Signs: Vital Signs Temperature 98.0 F 02/18/18 08:58 Pulse Rate 84 02/18/18 08:58 Respiratory Rate 18 02/18/18 09:00 Blood Pressure 133/66 02/18/18 08:58 O2 Sat by Pulse Oximetry (%) 98 02/18/18 09:00 Constitutional: Yes: No Distress Head: Yes: WNL Face: Yes: WNL Eyes: Yes: WNL Nose: Yes: Edema Nasal Passage: Yes: Pale, Other (prominent right inferior turbinate) Oral/Pharynx: Yes: Other (oral cavity WNL, tongue position 4, pt not able to cooperate for full oropharyngeal exam, limited vocalization, voice clear, no stridor or respiratory distress; missing teeth) Outer Ear: Yes: WNL, Other (NO mastoid edema, erythema or tenderness) Ear Canal: Yes: Cerumen (cerumen impaction 100% right, soft, sticky, subtotally removed with curet, TM not visulized (limited by pt ability to cooperate); clear left canal.) Tympanic Membrane: Yes: WNL (normal left, not visualized right) Neck: Yes: WNL Imaging - Results Chest X-ray: Report Reviewed Cat Scan: Report Reviewed (cerebral atrophy;bilateral mastoid partial opacification, right anterior nasal swelling, rule out polyp, bilateral mild ethmoid sinus mucosal thickening), Image Reviewed (CT scan head: partial opacification of mastoid air cells - NO air fluid levels, NO bony erosion, middle ears aerated; incidental opacification of right External canal (cerumen impaction on exam)) Problem List - Problems (1) Nasal swelling Assessment/Plan: CT scan shows swelling right anterior nasal cavity this is contiguous with right inferior turbinate, exam is consistent with significant hypertrophy anteriorly. no bleeding or drainage Recommend: nasal saline spray Code(s): R22.0 - LOCALIZED SWELLING, MASS AND LUMP, HEAD (2) Acute mastoiditis Assessment/Plan: CT scan describes bilateral mastoid effusion CT scan images show just partial opacification, NO bony erosion, no clinical evidence of acute mastoiditis, left TM normal, right TM not visualized ( significant cerumen impaction, TM not visualized) this is primarily a radiographic finding without clinical evidence of any significant disease no medical or surgical intervention recommended Thank you for consultation, Saleem Justice MD FACS Code(s): H70.009 - ACUTE MASTOIDITIS WITHOUT COMPLICATIONS, UNSPECIFIED EAR Qualifiers: Laterality: bilateral Qualified Code(s): H70.003 - Acute mastoiditis without complications, bilateral
--- NOTE | 2018-02-18 14:31 | DS ---
Physical Examination Vital Signs: Vital Signs Temperature 98.0 F 02/18/18 08:58 Pulse Rate 84 02/18/18 08:58 Respiratory Rate 18 02/18/18 09:00 Blood Pressure 133/66 02/18/18 08:58 O2 Sat by Pulse Oximetry (%) 98 02/18/18 09:00 Labs: CBC, BMP 02/18/18 06:00 02/18/18 06:00 Discharge Summary Reason For Visit: CHEST PAIN Current Active Problems ARF (acute renal failure) (Acute) Acute mastoiditis (Acute) Chest pain (Acute) Dementia (Acute) HLD (hyperlipidemia) (Acute) HTN (hypertension) (Acute) Nasal swelling (Acute) Organic brain syndrome (Acute) Seizure disorder (Acute) Sinus bradycardia (Acute) Condition: Improved - Instructions Diet, Activity, Other Instructions: Please return to the ED with new, persistent, or worsening symptoms. Please follow-up with providers as indicated. Referrals: William Martinez MD [Primary Care Provider] - (Please follow-up with Dr. Martinez on Friday02/20/18 at 1:15pm for further management of your dementia medications and to have your creatinine (blood work) checked. ) Jesse Carver MD [Staff Physician] - 1 Week Grupo Medina MD [Staff Physician] - 1 Week Disposition: VNS/HOME HEALTH CARE - Home Medications Comprehensive Discharge Medication List: Ambulatory Orders Donepezil HCl [Aricept Odt] 10 mg PO HS 09/18/12 Escitalopram Oxalate [Lexapro -] 10 mg PO DAILY 09/18/12 Olmesartan Medoxomil [Benicar -] 10 mg PO DAILY 09/18/12 Phenobarbital 30 mg PO BID 09/18/12 levETIRAcetam [Keppra -] 500 mg PO BID 09/18/12 Acetaminophen Oral Solution [Tylenol Oral Solution -] 650 mg PO Q4H 10/08/12 Bisacodyl [Dulcolax] 10 mg RC DAILY PRN 10/08/12 Cholecalciferol (Vitamin D3) [Vitamin D3] 2,000 unit PO DAILY 10/08/12 Docusate Sodium [Colace -] 100 mg PO DAILY 10/08/12 Magnesium Hydroxide [Milk of Magnesia] 30 ml PO DAILY PRN 11/29/12 Multivitamins with Iron [Tab-A-Emeka with Iron] 1 each PO DAILY 10/08/12 Polyethylene Glycol 3350 [Miralax 255 gm Btl -] 17 gm PO DAILY 10/08/12
[2018-02-18] MEDS: DONEPEZIL HCL 10 MG TABLET (FP) PO SCH (21:26)
[2018-02-19 09:04] VITALS: BP 114/48; PULSE 56; TEMP 98.4
[2018-02-19] MEDS: levETIRAcetam 500 MG TABLET (FP) PO SCH (09:55)
[2018-02-19] MEDS: PHENobarbital 30 MG TABLET PO SCH (09:55)
[2018-02-19] MEDS: ESCITALOPRAM OXALATE 10 MG TABLET (FP) PO SCH (09:55)
[2018-02-19] MEDS: VALSARTAN 80 MG TABLET (UD) PO SCH (09:55)
[2018-02-19] MEDS: CHOLECALCIFEROL (VITAMIN D3) 1,000 UNIT TABLET (FP) PO SCH (09:55)
[2018-02-19] MEDS: HEPARIN NA (PORCINE) 5,000 UNITS/ML 1ML VIAL SQ SCH (09:56)
[2018-02-19] MEDS: MULTIVITAMINS THER W-MINERALS COMBO TABLET (FP) PO SCH (09:56)
[2018-02-19] MEDS: DOCUSATE SODIUM 100 MG CAPSULE (FP) PO SCH (09:56)
== END 2018-02-19 13:18 | disposition home health service (06) | DRG 683 ==
LOC: JER 15:24 → JERBED 17:35 → J4W 02-15 01:43 → OBSVTOIN 02-15 02:16
PROVIDERS: ADMIT Internal Medicine; ATTEND Internal Medicine
DX: N17.9 Acute kidney failure, unspecified (principal); G81.91 Hemiplegia, unspecified affecting right dominant side; R47.01 Aphasia; H70.003 Acute mastoiditis without complications, bilateral; R00.1 Bradycardia, unspecified; R07.9 Chest pain, unspecified; G30.9 Alzheimer's disease, unspecified; F02.80 Dementia in other diseases classified elsewhere, unspecified severity, without behavioral disturbance, psychotic disturbance, mood disturbance, and anxiety; E78.5 Hyperlipidemia, unspecified; I10 Essential (primary) hypertension; G40.909 Epilepsy, unspecified, not intractable, without status epilepticus; E86.0 Dehydration; F32.9 Major depressive disorder, single episode, unspecified; G93.89 Other specified disorders of brain; R22.0 Localized swelling, mass and lump, head
CPT/HCPCS: 36415; 70450-TC; 71045-TC-FY; 76775-TC; 80053; 81003; 82550; 82553; 82607; 84443; 84484; 85025; 85610; 87086; 93005; 93010; 93306-TC; 99285-25; G0378; J1644

== ENCOUNTER 2018-07-05 20:35 | Inpatient (IN) | payer OTHER ==
--- NOTE | 2018-07-05 20:49 | PDOC ---
Attending Attestation - Physicial Exam PE: 07/05/18 21:28 GENERAL: Awake, alert, and fully oriented, in no acute distress HEAD: No signs of trauma EYES: (+) [place] pupils. ENT: Auricles normal inspection, hearing grossly normal, nares patent, oropharynx clear without exudates. Moist mucosa NECK: Normal ROM, supple, no lymphadenopathy, JVD, or masses LUNGS: (+) Diffused crackles throughout. No wheezes. HEART: Regular rate and rhythm, normal S1 and S2, no murmurs, rubs or gallops ABDOMEN: Soft, nontender, normoactive bowel sounds. No guarding, no rebound. No masses EXTREMITIES: (+) Decreased reflexes throughout. No edema. No erythema. (+) Babinskis is pointing upward. NEUROLOGICAL: Cranial nerves II through XII grossly intact. Normal speech, normal gait SKIN: Warm, Dry, normal turgor, no rashes or lesions noted. <Lucrecia Polk - Last Filed: 07/05/18 22:12> - Resident Resident Name: Gordo Doherty - ED Attending Attestation I have performed the following: I have examined & evaluated the patient, The case was reviewed & discussed with the resident, I agree w/resident's findings & plan - HPI HPI: 07/05/18 21:17 Pt brought in by family as she has been unresponsive since 7PM. She is slumped over. Family states she was in her USOH today; normally demented, but more animates. Pt has a hx of CVA in 2011, and she is wheelchair bound. - Medical Decision Making 07/05/18 21:19 Pt likely suffered a CVA; she is afebrile, but we are doing a full septic w/u. Pt also has ST depressions on her EKG, inferiorly and laterally. 07/05/18 21:54 Exam: CT head without IV contrast. Clinical indication:Pontine pupils. Comparison:02/11/2018. Technique: Axial unenhanced CT images from the skull base through the brain were obtained followed by coronal and sagital reformats. Findings: The visualized bony structures are unremarkable. The visualized paranasal sinuses and mastoid air cells are clear. There is no evidence of intra-or extra-axial hemorrhage. The ventricles and basilar cisterns are unremarkable. There is moderate to severe periventricular hypodensities consistent with moderate to severe chronic small vessel ischemic changes. There is no evidence of intracranial mass , acute infarct, or midline shift. Impression: 1. Moderate to severe chronic small vessel ischemic changes. 2. Otherwise, negative unenhanced CT of the brain. Individualized dose optimization techniques were used for this CT. THIS DOCUMENT HAS BEEN ELECTRONICALLY SIGNED 07/05/18 21:54 Pt has decreased ventilatory effort, so we placed her on 100%NRB facemask 07/05/18 22:55 Pt will be admitted to the ICU; ICU team is aware. She has a bicarb of 14 due to lactic acidosis and she will be treated with hydration as well as IV baicarb. We are awaiting call back from PMColten Crespo 07/06/18 01:52 Dr. Crespo is admiitting the patient to ICU. <Yaneth Pate - Last Filed: 07/06/18 01:53>
--- NOTE | 2018-07-05 21:06 | PDOC ---
Attending Attestation - Resident Resident Name: Gordo Doherty - ED Attending Attestation I have performed the following: I have examined & evaluated the patient, The case was reviewed & discussed with the resident, I agree w/resident's findings & plan
[2018-07-05] MEDS ORDERED: levETIRAcetam 500 MG/5 ML INJECTION VIAL IVPB ONE (21:29)
--- NOTE | 2018-07-05 21:29 | PDOC ---
History of Present Illness - General Chief Complaint: Seizure Stated Complaint: DIFF. BREATHING/SEIZURES Time Seen by Provider: 07/05/18 20:45 History Source: EMS Exam Limitations: Language Barrier - History of Present Illness Initial Comments: 07/05/18 21:02 The patient is an 88F with a PMH of Parkinson's dementia (nonverbal), HLD, and epilepsy who presents to the ER after having a witnessed seizure. The patient is with her and grandson who is translating. The states that the patient began shaking and having apneic episodes. The states that the episode lasted for about 2 minutes and he's not positive if she had tongue biting or bowel/bladder incontinence. No other history could be provided. Past History - Past Medical History Allergies/Adverse Reactions: Allergies Allergy/AdvReac Type Severity Reaction Status Date / Time No Known Allergies Allergy Verified 07/05/18 20:56 Home Medications: Ambulatory Orders Carbidopa/Levodopa 25/100 [Sinemet 25/100 -] 1 each PO DAILY 07/05/18 Donepezil HCl [Aricept] 10 mg PO DAILY 07/05/18 Escitalopram Oxalate [Lexapro -] 10 mg PO DAILY 07/05/18 Olmesartan Medoxomil [Benicar] 20 mg PO DAILY 07/05/18 Quetiapine Fumarate [Seroquel -] 25 mg PO HS 07/05/18 levETIRAcetam [Keppra -] 500 mg PO BID 07/05/18 COPD: No Dementia: Yes HTN: Yes Hypercholesterolemia: Yes Seizures: Yes - Suicide/Smoking/Psychosocial Hx Smoking Status: No Smoking History: Never smoked Have you smoked in the past 12 months: No Number of Cigarettes Smoked Daily: 0 Information on smoking cessation initiated: No Hx Alcohol Use: No Drug/Substance Use Hx: No Substance Use Type: None Review of Systems - Review of Systems Able to Perform ROS?: No (clinical condition) *Physical Exam - Vital Signs Last Vital Signs Temp Pulse Resp BP Pulse Ox 99.1 F 105 H 20 89/48 94 L 07/05/18 20:56 07/05/18 20:56 07/05/18 20:56 07/05/18 20:56 07/05/18 20:56 - Physical Exam Comments: 07/05/18 22:28 GENERAL: Well developed, well nourished. Asleep. No acute distress. HEENT: Normocephalic, atraumatic. Hearing grossly normal. Moist mucous membranes. Pinpoint pupils. No conjunctival pallor. Sclera are non-icteric. NECK: Supple. Full ROM. CARDIOVASCULAR: Regular rate and rhythm. No murmurs, rubs, or gallops. PULMONARY: No evidence of respiratory distress. Diffuse crackles in all lung van. ABDOMINAL: Soft. Non-tender. Non-distended. No rebound or guarding. EXTREMITIES: No cyanosis. No clubbing. No edema. No calf tenderness or swelling. SKIN: Warm and dry. Normal capillary refill. No rashes. No jaundice. NEUROLOGIC: Lethargic, responsive to physical stimuli. Heart Score/ECG Review #1 ECG reviewed & interpreted by me at: 22:35 General ECG Interpretation: Sinus Rhythm, Normal Rate, Normal Intervals, No acute ischemic changes Compared to previous ECG there are: Changes noted 07/05/18 22:35 NSR vent rate 90 MT 152 QRS 62 QTc 519 STD noted in V4-6 and II, III, aVF changed from prior Prolonged QT ED Treatment Course - LABORATORY CBC & Chemistry Diagram: 07/05/18 21:08 07/05/18 21:08 - RADIOLOGY Radiology Studies Ordered: Category Date Time Status HEAD CT WITHOUT CONTRAST [CT] Stat CT Scan 07/05/18 20:56 Ordered CHEST X-RAY PORTABLE* [RAD] Stat Radiology 07/05/18 20:55 Ordered Medical Decision Making - Medical Decision Making 07/05/18 21:46 The patient is an 88F with a PMH of seizures and dementia who presents to the ER after having a witnessed seizure. Attending noted b/l babinksi reflex. Diego flores was called by attending. I have much higher suspicion for seizure. Will give 1 g keppra. Septic protocol is being followed. [facility] radiologist: Moderate to severe chronic small vessel disease. No acute changes. I have discussed the pt w/ Dr. Hughes, covering for Dr. Medina, who agrees that this is more likely a seizure than CVA. He states that he will continue imaging in the morning. 07/05/18 22:37 Pt noted to have a lactate of 14. Giving fluid resuscitation, will put in alvarado , and being IV abx. Trop negative despite EKG changes. Dr. Schneider, ICU, aware of pt. Will place admitting orders. 07/05/18 23:50 I have d/w daughter and regarding code status and they request that everything is done. Pt is currently stable and protecting her own airway. I have endorsed the pt to Dr. Edmond for admission as Dr. Crespo has not called back after paging x 2. *DC/Admit/Observation/Transfer Diagnosis at time of Disposition: Seizure disorder, Lactic acidosis - Discharge Dispostion Condition at time of disposition: Critical Decision to Admit order: Yes - Referrals - Patient Instructions - Post Discharge Activity
[2018-07-05 21:51] LABS: BASO % 0.4 % (0-2.0); EOS % 1.2 % (0-4.5); HEMATOCRIT 30.6 % (32.4-45.2); HEMOGLOBIN 9.8 GM/dL (10.7-15.3); LYMPH % 6.1 % (8-40); MCH 29.4 pg (25.7-33.7); MCHC 32.1 g/dl (32.0-36.0); MEAN CELL VOLUME 91.5 fl (80-96); MEAN PLT VOLUME 8.6 fl (7.5-11.1); MONO % 6.4 % (3.8-10.2); NEUT % 85.9 % (42.8-82.8); PLATELET COUNT 216 K/MM3 (134-434); RBC 3.34 M/mm3 (3.60-5.2); RDW 13.9 % (11.6-15.6); WHITE BLOOD COUNT 11.7 K/mm3 (4.0-10.0)
[2018-07-05 21:56] LABS: VENOUS PC02 36.1 mmHg (38-52)
[2018-07-05 21:58] LABS: VENOUS PH 7.18 (7.32-7.42)
[2018-07-05 22:06] LABS: INR 1.02 (0.83-1.09); PROTHROMBIN TIME (PATIENT) 11.5 SEC (9.7-13.0)
[2018-07-05] MEDS ORDERED: PIPERACILLIN/TAZOB 3.375 GM 3.375 GM in DEXTROSE 5%-WATER - 50 ML IVPB ONE (22:08)
[2018-07-05] MEDS ORDERED: VANCOMYCIN 1,000 MG in DEXTROSE 5%-WATER - 250 ML IVPB ONE (22:08)
[2018-07-05 22:09] LABS: ACTIVATED PTT 29.2 SECONDS (25.2-36.5)
[2018-07-05 22:14] LABS: ALBUMIN 3.1 g/dl (3.4-5.0); ANION GAP 22 MMOL/L (8-16); BILIRUBIN,TOTAL 0.2 mg/dL (0.2-1.0); BLOOD UREA NITROGEN 18 mg/dL (7-18); CHLORIDE 112 mmol/L (98-107); CO2 13 mmol/L (21-32); CREATININE 1.2 mg/dL (0.55-1.02); GLUCOSE,RANDOM 105 mg/dL (74-106); SGPT/ALT 10 U/L (12-78); SODIUM 147 mmol/L (136-145); TOT PROT 6.1 g/dl (6.4-8.2)
[2018-07-05 22:15] LABS: ALK PHOS 75 U/L (45-117)
[2018-07-05] MEDS ORDERED: VANCOMYCIN 1 GRAM (PRE-DOCKED) 1,000 MG/250 ML BAG IVPB ONE (22:16)
[2018-07-05] MEDS ORDERED: PIPERACILLIN/TAZOB 3.375 GM 3.375 GM/50 ML BAG IVPB ONE (22:17)
[2018-07-05 22:20] LABS: POTASSIUM 3.7 mmol/L (3.5-5.1); SGOT/AST 27 U/L (15-37)
[2018-07-05] MEDS ORDERED: SODIUM BICARBONATE 8.4% 50 MEQ/50 ML VIAL IV ONE (22:21)
[2018-07-05] MEDS ORDERED: SODIUM CHLORIDE 0.9% 1000 ML INFUS.BAG IV ONE (22:21)
[2018-07-05 22:24] LABS: ANISOCYTOSIS 1+; MACROCYTOSIS 1+; PLATELET ESTIMATE ADEQUATE
[2018-07-05] MEDS ORDERED: SODIUM BICARBONATE 8.4% - 50 ML ONE (22:50)
[2018-07-05 23:19] LABS: URINE APPEARANCE SLCLOUDY; URINE BILIRUBIN NEGATIVE (<2.0 mg/dL); URINE COLOR DKYELLOW; URINE GLUCOSE (UA) NEGATIVE (NEGATIVE); URINE KETONE TRACE (NEGATIVE); URINE LEUK ESTERASE NEGATIVE (NEGATIVE); URINE NITRITE NEGATIVE (NEGATIVE); URINE UROBILINOGEN NEGATIVE mg/dL (0.2-1.0)
[2018-07-05 23:22] LABS: URINE PROTEIN 3+ (NEGATIVE)
[2018-07-05 23:23] LABS: EPI CELLS RARE /HPF (FEW); URINE HYALINE CAST 7 /lpf; URINE MUCUS MODERATE
--- NOTE | 2018-07-06 00:19 | HP ---
CHIEF COMPLAINT:shaking PCP:Dr. Martinez HISTORY OF PRESENT ILLNESS: Patient is an 88 year old female with past medical history of Parkinson's dementia, HLD, HTN, CVA, and epilepsy, was brought in because of witnessed seizure. Patient is nonverbal, information provided by and daughter. Few hours prior, patient ER course was notable for: (1) (2) (3) Recent Travel: PAST MEDICAL HISTORY: PAST SURGICAL HISTORY: Social History: Smoking: Alcohol: Drugs: Family History: Allergies No Known Allergies Allergy (Verified 07/05/18 20:56) HOME MEDICATIONS: Home Medications Medication Instructions Recorded Carbidopa/Levodopa [Sinemet 1 each PO DAILY 07/05/18 -] Donepezil HCl [Aricept] 10 mg PO DAILY 07/05/18 Escitalopram Oxalate [Lexapro -] 10 mg PO DAILY 07/05/18 Olmesartan Medoxomil [Benicar] 20 mg PO DAILY 07/05/18 Quetiapine Fumarate [Seroquel -] 25 mg PO HS 07/05/18 levETIRAcetam [Keppra -] 500 mg PO BID 07/05/18 REVIEW OF SYSTEMS CONSTITUTIONAL: Absent: fever, chills, diaphoresis, generalized weakness, malaise, loss of appetite, weight change HEENT: Absent: rhinorrhea, nasal congestion, throat pain, throat swelling, difficulty swallowing, mouth swelling, ear pain, eye pain, visual changes CARDIOVASCULAR: Absent: chest pain, syncope, palpitations, irregular heart rate, lightheadedness , peripheral edema RESPIRATORY: Absent: cough, shortness of breath, dyspnea with exertion, orthopnea, wheezing, stridor, hemoptysis GASTROINTESTINAL: Absent: abdominal pain, abdominal distension, nausea, vomiting, diarrhea, constipation, melena, hematochezia GENITOURINARY: Absent: dysuria, frequency, urgency, hesitancy, hematuria, flank pain, genital pain MUSCULOSKELETAL: Absent: myalgia, arthralgia, joint swelling, back pain, neck pain SKIN: Absent: rash, itching, pallor HEMATOLOGIC/IMMUNOLOGIC: Absent: easy bleeding, easy bruising, lymphadenopathy, frequent infections ENDOCRINE: Absent: unexplained weight gain, unexplained weight loss, heat intolerance, cold intolerance NEUROLOGIC: Absent: headache, focal weakness or paresthesias, dizziness, unsteady gait, seizure, mental status changes, bladder or bowel incontinence PSYCHIATRIC: Absent: anxiety, depression, suicidal or homicidal ideation, hallucinations. PHYSICAL EXAMINATION Vital Signs - 24 hr 07/05/18 07/05/18 07/05/18 20:36 20:55 20:56 Temperature 99.1 F 99.1 F Pulse Rate 105 H Respiratory 20 Rate Blood Pressure 89/48 Blood Pressure 114/47 [Left Arm] O2 Sat by Pulse 95 100 94 L Oximetry (%) 07/05/18 23:09 Temperature Pulse Rate Respiratory 18 Rate Blood Pressure Blood Pressure 157/62 [Left Arm] O2 Sat by Pulse 96 Oximetry (%) GENERAL: Awake, alert, and fully oriented, in no acute distress. HEAD: Normal with no signs of trauma. EYES: Pupils equal, round and reactive to light, extraocular movements intact, sclera anicteric, conjunctiva clear. No lid lag. EARS, NOSE, THROAT: Ears normal, nares patent, oropharynx clear without exudates. Moist mucous membranes. NECK: Normal range of motion, supple without lymphadenopathy, JVD, or masses. LUNGS: Breath sounds equal, clear to auscultation bilaterally. No wheezes, and no crackles. No accessory muscle use. HEART: Regular rate and rhythm, normal S1 and S2 without murmur, rub or gallop. ABDOMEN: Soft, nontender, not distended, normoactive bowel sounds, no guarding, no rebound, no masses. No hepatomegaly or splenomegaly. MUSCULOSKELETAL: Normal range of motion at all joints. No bony deformities or tenderness. No CVA tenderness. UPPER EXTREMITIES: 2+ pulses, warm, well-perfused. No cyanosis. No clubbing. No peripheral edema. LOWER EXTREMITIES: 2+ pulses, warm, well-perfused. No calf tenderness. No peripheral edema. NEUROLOGICAL: Cranial nerves II-XII intact. Normal speech. Normal gait. PSYCHIATRIC: Cooperative. Good eye contact. Appropriate mood and affect. SKIN: Warm, dry, normal turgor, no rashes or lesions noted, normal capillary refill. Laboratory Results - last 24 hr 07/05/18 07/05/18 07/05/18 21:08 21:08 21:08 WBC 11.7 H RBC 3.34 L Hgb 9.8 L Hct 30.6 L MCV 91.5 MCH 29.4 MCHC 32.1 RDW 13.9 Plt Count 216 MPV 8.6 Absolute Neuts (auto) 10.0 H Total Counted 100 Neutrophils % 85.9 H D Neutrophils % (Manual) 85.0 H Lymphocytes % 6.1 L D Lymphocytes % (Manual) 10.0 Monocytes % 6.4 Monocytes % (Manual) 5 Eosinophils % 1.2 Basophils % 0.4 Nucleated RBC % 0 Hypochromia 1+ Platelet Estimate Adequate Platelet Comment No clumping noted Anisocytosis 1+ Macrocytosis 1+ PT with INR 11.50 INR 1.02 PTT (Actin FS) 29.2 VBG pH POC VBG pCO2 POC VBG pO2 Mixed VBG HCO3 Sodium Potassium Chloride Carbon Dioxide Anion Gap BUN Creatinine Creat Clearance w eGFR Random Glucose Lactic Acid Calcium Total Bilirubin AST ALT Alkaline Phosphatase Troponin I Total Protein Albumin Urine Color Dkyellow Urine Appearance Slcloudy Urine pH 5.0 Ur Specific [place] 1.019 Urine Protein 3+ H Urine Glucose (UA) Negative Urine Ketones Trace H Urine Blood 1+ H Urine Nitrite Negative Urine Bilirubin Negative Urine Urobilinogen Negative Ur Leukocyte Esterase Negative Urine WBC (Auto) 11 Urine RBC (Auto) 6 Ur Epithelial Cells Rare Hyaline Casts 7 Urine Mucus Moderate 07/05/18 07/05/18 07/05/18 21:08 21:08 21:08 WBC RBC Hgb Hct MCV MCH MCHC RDW Plt Count MPV Absolute Neuts (auto) Total Counted Neutrophils % Neutrophils % (Manual) Lymphocytes % Lymphocytes % (Manual) Monocytes % Monocytes % (Manual) Eosinophils % Basophils % Nucleated RBC % Hypochromia Platelet Estimate Platelet Comment Anisocytosis Macrocytosis PT with INR INR PTT (Actin FS) VBG pH 7.18 L* POC VBG pCO2 36.1 L POC VBG pO2 43.0 Mixed VBG HCO3 12.9 L* Sodium 147 H Potassium 3.7 Chloride 112 H Carbon Dioxide 13 L Anion Gap 22 H BUN 18 Creatinine 1.2 H Creat Clearance w eGFR 42.60 Random Glucose 105 Lactic Acid Calcium 8.0 L Total Bilirubin 0.2 AST 27 ALT 10 L Alkaline Phosphatase 75 Troponin I < 0.02 Total Protein 6.1 L Albumin 3.1 L Urine Color Urine Appearance Urine pH Ur Specific [place] Urine Protein Urine Glucose (UA) Urine Ketones Urine Blood Urine Nitrite Urine Bilirubin Urine Urobilinogen Ur Leukocyte Esterase Urine WBC (Auto) Urine RBC (Auto) Ur Epithelial Cells Hyaline Casts Urine Mucus 07/05/18 21:08 WBC RBC Hgb Hct MCV MCH MCHC RDW Plt Count MPV Absolute Neuts (auto) Total Counted Neutrophils % Neutrophils % (Manual) Lymphocytes % Lymphocytes % (Manual) Monocytes % Monocytes % (Manual) Eosinophils % Basophils % Nucleated RBC % Hypochromia Platelet Estimate Platelet Comment Anisocytosis Macrocytosis PT with INR INR PTT (Actin FS) VBG pH POC VBG pCO2 POC VBG pO2 Mixed VBG HCO3 Sodium Potassium Chloride Carbon Dioxide Anion Gap BUN Creatinine Creat Clearance w eGFR Random Glucose Lactic Acid 14.4 H* Calcium Total Bilirubin AST ALT Alkaline Phosphatase Troponin I Total Protein Albumin Urine Color Urine Appearance Urine pH Ur Specific [place] Urine Protein Urine Glucose (UA) Urine Ketones Urine Blood Urine Nitrite Urine Bilirubin Urine Urobilinogen Ur Leukocyte Esterase Urine WBC (Auto) Urine RBC (Auto) Ur Epithelial Cells Hyaline Casts Urine Mucus ASSESSMENT/PLAN: Hospitalist Screening - Colonoscopy Questionnaire Colonoscopy Questionnaire: Colonoscopy Questionnaire
--- NOTE | 2018-07-06 00:40 | CONSULT ---
Consultation: REQUESTING PROVIDER: CONSULT REQUEST: ICU HISTORY OF PRESENT ILLNESS: The patient is a 88 year old female with a PMH of CVA, Parkinson's, Alzheimer's , HTN, seizure disorder( last one 5 years ago), minimally communicating with family, on wheelchair. She was brought in by family after her witnessed a seizure around 6:30 PM. It lasted 2-3 minutes, involved shaking of her lower and upper extremities, no tongue biting, unsure if she urinated. Last seizure was several years ago. Code flores (stroke) was called in ED, sepsis protocol set was also ordered. When I saw the patient in ICU, she was still very lethargic, not following commands, on 4 L NC, 159/69, HR 77. Her and daughter were present at bedside. They denied fever, chills, cough, nausea, vomiting, diarrhea. CT head was negative for acute pathology. Labs: WBC 11.7, Hgb 9.8, HCT 30.6, VBG 7.18, pC02 36.1, HC03 12.9, Na 147. h REVIEW OF SYSTEMS: N/A PHYSICAL EXAMINATION Vital Signs - 24 hr 07/05/18 07/05/18 07/05/18 20:36 20:55 20:56 Temperature 99.1 F 99.1 F Pulse Rate 105 H Respiratory 20 Rate Blood Pressure 89/48 Blood Pressure 114/47 [Left Arm] O2 Sat by Pulse 95 100 94 L Oximetry (%) 07/05/18 23:09 Temperature Pulse Rate Respiratory 18 Rate Blood Pressure Blood Pressure 157/62 [Left Arm] O2 Sat by Pulse 96 Oximetry (%) GENERAL: Awake, very lethargic, not following commands. HEAD: Normal with no signs of trauma. EYES: Pupils equal, pinpoint, sclera anicteric, conjunctiva clear. EARS, NOSE, THROAT: Oropharynx clear without exudates. Moist mucous membranes. NECK: Normal range of motion, supple without lymphadenopathy. LUNGS: Breath sounds equal, occasional rhales. No accessory muscle use. HEART: Regular rate and rhythm, normal S1 and S2 without murmur, rub or gallop. ABDOMEN: Soft, nontender, not distended, normoactive bowel sounds, no guarding, no rebound, no masses. UPPER EXTREMITIES: No peripheral edema, rigidity, r>l. Right arm flexed. LOWER EXTREMITIES: 2+ pulses, rigidity. NEUROLOGICAL:Not following commands. SKIN: Warm, dry, normal turgor, no rashes. Laboratory Results - last 24 hr 07/05/18 07/05/18 07/05/18 21:08 21:08 21:08 WBC 11.7 H RBC 3.34 L Hgb 9.8 L Hct 30.6 L MCV 91.5 MCH 29.4 MCHC 32.1 RDW 13.9 Plt Count 216 MPV 8.6 Absolute Neuts (auto) 10.0 H Total Counted 100 Neutrophils % 85.9 H D Neutrophils % (Manual) 85.0 H Lymphocytes % 6.1 L D Lymphocytes % (Manual) 10.0 Monocytes % 6.4 Monocytes % (Manual) 5 Eosinophils % 1.2 Basophils % 0.4 Nucleated RBC % 0 Hypochromia 1+ Platelet Estimate Adequate Platelet Comment No clumping noted Anisocytosis 1+ Macrocytosis 1+ PT with INR 11.50 INR 1.02 PTT (Actin FS) 29.2 VBG pH POC VBG pCO2 POC VBG pO2 Mixed VBG HCO3 Sodium Potassium Chloride Carbon Dioxide Anion Gap BUN Creatinine Creat Clearance w eGFR Random Glucose Lactic Acid Calcium Total Bilirubin AST ALT Alkaline Phosphatase Troponin I Total Protein Albumin Urine Color Dkyellow Urine Appearance Slcloudy Urine pH 5.0 Ur Specific [place] 1.019 Urine Protein 3+ H Urine Glucose (UA) Negative Urine Ketones Trace H Urine Blood 1+ H Urine Nitrite Negative Urine Bilirubin Negative Urine Urobilinogen Negative Ur Leukocyte Esterase Negative Urine WBC (Auto) 11 Urine RBC (Auto) 6 Ur Epithelial Cells Rare Hyaline Casts 7 Urine Mucus Moderate 07/05/18 07/05/18 07/05/18 21:08 21:08 21:08 WBC RBC Hgb Hct MCV MCH MCHC RDW Plt Count MPV Absolute Neuts (auto) Total Counted Neutrophils % Neutrophils % (Manual) Lymphocytes % Lymphocytes % (Manual) Monocytes % Monocytes % (Manual) Eosinophils % Basophils % Nucleated RBC % Hypochromia Platelet Estimate Platelet Comment Anisocytosis Macrocytosis PT with INR INR PTT (Actin FS) VBG pH 7.18 L* POC VBG pCO2 36.1 L POC VBG pO2 43.0 Mixed VBG HCO3 12.9 L* Sodium 147 H Potassium 3.7 Chloride 112 H Carbon Dioxide 13 L Anion Gap 22 H BUN 18 Creatinine 1.2 H Creat Clearance w eGFR 42.60 Random Glucose 105 Lactic Acid Calcium 8.0 L Total Bilirubin 0.2 AST 27 ALT 10 L Alkaline Phosphatase 75 Troponin I < 0.02 Total Protein 6.1 L Albumin 3.1 L Urine Color Urine Appearance Urine pH Ur Specific [place] Urine Protein Urine Glucose (UA) Urine Ketones Urine Blood Urine Nitrite Urine Bilirubin Urine Urobilinogen Ur Leukocyte Esterase Urine WBC (Auto) Urine RBC (Auto) Ur Epithelial Cells Hyaline Casts Urine Mucus 07/05/18 07/05/18 21:08 23:44 WBC RBC Hgb Hct MCV MCH MCHC RDW Plt Count MPV Absolute Neuts (auto) Total Counted Neutrophils % Neutrophils % (Manual) Lymphocytes % Lymphocytes % (Manual) Monocytes % Monocytes % (Manual) Eosinophils % Basophils % Nucleated RBC % Hypochromia Platelet Estimate Platelet Comment Anisocytosis Macrocytosis PT with INR INR PTT (Actin FS) VBG pH POC VBG pCO2 POC VBG pO2 Mixed VBG HCO3 Sodium Potassium Chloride Carbon Dioxide Anion Gap BUN Creatinine Creat Clearance w eGFR Random Glucose Lactic Acid 14.4 H* 3.9 H* Calcium Total Bilirubin AST ALT Alkaline Phosphatase Troponin I Total Protein Albumin Urine Color Urine Appearance Urine pH Ur Specific [place] Urine Protein Urine Glucose (UA) Urine Ketones Urine Blood Urine Nitrite Urine Bilirubin Urine Urobilinogen Ur Leukocyte Esterase Urine WBC (Auto) Urine RBC (Auto) Ur Epithelial Cells Hyaline Casts Urine Mucus ASSESSMENT/PLAN: The patient is a 88 year old female with a PMH of CVA, Parkinson's, Alzheimers, HTN, seizure disorder (last one 5 years ago) presented s/p seizure earlier tonight. She is admitted to ICU for seizures, r/o stroke, lactic acidosis. s/p seizures lactic acidosis h/o of CVS, r/o stroke r/o sepsis Parkinson's Alzheimer's ALFONSO on CKD hypernatremia leukocytosis anemia Plan: continue Keppra 500 mg BID f/u LA in AM f/u Dilantin level f/u Neurology recommendations NPO speech and swallow continue gentle hydration f/u blood cultures f/u for signs of infection, fever, WBC, given Vanc and Zosyn in ED Oxygen Supplementation monitor BP iron studies ordered DVT PPX: scds, no Heparin for now Dispo: We will continue to follow the patient. Thank you for this consultative opportunity. Primary team: Dr Crespo notified. Problem List - Problems (1) Parkinsons Code(s): G20 - PARKINSON'S DISEASE (2) Alzheimer's dementia Code(s): G30.9 - ALZHEIMER'S DISEASE, UNSPECIFIED; F02.80 - DEMENTIA IN OTH DISEASES CLASSD ELSWHR W/O BEHAVRL DISTURB (3) Lactic acidosis Code(s): E87.2 - ACIDOSIS (4) Seizure disorder Code(s): G40.909 - EPILEPSY, UNSP, NOT INTRACTABLE, WITHOUT STATUS EPILEPTICUS (5) ARF (acute renal failure) Code(s): N17.9 - ACUTE KIDNEY FAILURE, UNSPECIFIED (6) HLD (hyperlipidemia) Code(s): E78.5 - HYPERLIPIDEMIA, UNSPECIFIED (7) HTN (hypertension) Code(s): I10 - ESSENTIAL (PRIMARY) HYPERTENSION Visit type - Emergency Visit Emergency Visit: Yes ED Registration Date: 07/05/18 Care time: The patient presented to the Emergency Department on the above date and was hospitalized for further evaluation of their emergent condition. - New Patient This patient is new to me today: Yes Date on this admission: 07/06/18 - Critical Care Critical Care patient: Yes Total Critical Care Time (in minutes): 40 Critical Care Statement: The care of this patient involved high complexity decision making to prevent further life threatening deterioration of the patient 's condition and/or to evaluate & treat vital organ system(s) failure or risk of failure.
[2018-07-06] MEDS ORDERED: SODIUM CHLORIDE 1,000 ML IV SCH (01:00)
[2018-07-06] MEDS ORDERED: HEPARIN NA (PORCINE) 5,000 UNITS/ML 1ML VIAL SQ SCH (02:00)
[2018-07-06] MEDS ORDERED: VANCOMYCIN 1,000 MG in DEXTROSE 5%-WATER - 250 ML IVPB SCH (03:15)
[2018-07-06] MEDS: DEXTROSE 5%-0.45% SALINE 1,000 ML IV SCH (04:00)
[2018-07-06 06:11] LABS: BASO % 0.5 % (0-2.0); EOS % 1.4 % (0-4.5); HEMATOCRIT 30.2 % (32.4-45.2); HEMOGLOBIN 10.1 GM/dL (10.7-15.3); LYMPH % 9.2 % (8-40); MCH 29.8 pg (25.7-33.7); MCHC 33.6 g/dl (32.0-36.0); MEAN CELL VOLUME 88.9 fl (80-96); MEAN PLT VOLUME 8.3 fl (7.5-11.1); MONO % 10.4 % (3.8-10.2); NEUT % 78.5 % (42.8-82.8); PLATELET COUNT 210 K/MM3 (134-434); RDW 13.7 % (11.6-15.6)
[2018-07-06 06:33] LABS: CHLORIDE 111 mmol/L (98-107); POTASSIUM 3.1 mmol/L (3.5-5.1); SODIUM 148 mmol/L (136-145)
[2018-07-06 06:47] LABS: ALBUMIN 3.1 g/dl (3.4-5.0); ALK PHOS 68 U/L (45-117); ANION GAP 10 MMOL/L (8-16); BILIRUBIN,TOTAL 0.6 mg/dL (0.2-1.0); BLOOD UREA NITROGEN 14 mg/dL (7-18); CO2 27 mmol/L (21-32); CREATININE 0.9 mg/dL (0.55-1.02); GLUCOSE,RANDOM 76 mg/dL (74-106); SGOT/AST 31 U/L (15-37); SGPT/ALT 11 U/L (12-78)
[2018-07-06] MEDS ORDERED: PIPERACILLIN/TAZOB 3.375 GM 3.375 GM in DEXTROSE 5%-WATER - 50 ML IVPB SCH ×2 (08:00→10:00)
[2018-07-06] MEDS ORDERED: DEXTROSE 5%-WATER - 50 ML IVPB ONE ×2 (08:27→17:31)
[2018-07-06] MEDS ORDERED: PIPERACILLIN/TAZOBACTAM 3.375 GM VIAL IVPB ONE (08:27)
[2018-07-06] MEDS: HEPARIN NA (PORCINE) 5,000 UNITS/ML 1ML VIAL SQ SCH ×2 (09:17→21:44)
[2018-07-06] MEDS ORDERED: MUPIROCIN 2% TOPICAL OINTMENT FOR DECOLONIZATION NS SCH (10:00)
[2018-07-06] MEDS ORDERED: CARBIDOPA/LEVODOPA 25/100 TABLET (FP) PO SCH ×2 (10:00→10:15)
[2018-07-06] MEDS ORDERED: ESCITALOPRAM OXALATE 10 MG TABLET (FP) PO SCH (10:00)
[2018-07-06] MEDS ORDERED: DONEPEZIL HCL 10 MG TABLET (FP) PO SCH (10:00)
[2018-07-06] MEDS ORDERED: levETIRAcetam 500 MG/5 ML INJECTION VIAL IVPB SCH (10:00)
[2018-07-06] MEDS ORDERED: levETIRAcetam 500 MG TABLET (FP) PO SCH (10:00)
--- NOTE | 2018-07-06 10:11 | CON.NEURO ---
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, Seizure Cardio/Vascular: Yes: HTN Psych: Yes: Depression - Past Surgical History Past Surgical History: Yes: None - Alcohol/Substance Use Hx Alcohol Use: No - Smoking History Smoking history: Never smoked Have you smoked in the past 12 months: No Aproximately how many cigarettes per day: 0 Home Medications - Allergies Allergies/Adverse Reactions: Allergies Allergy/AdvReac Type Severity Reaction Status Date / Time No Known Allergies Allergy Verified 07/05/18 20:56 - Home Medications Home Medications: Ambulatory Orders Carbidopa/Levodopa 25/100 [Sinemet 25/100 -] 1 each PO DAILY 07/05/18 Donepezil HCl [Aricept] 10 mg PO DAILY 07/05/18 Escitalopram Oxalate [Lexapro -] 10 mg PO DAILY 07/05/18 Olmesartan Medoxomil [Benicar] 20 mg PO DAILY 07/05/18 Quetiapine Fumarate [Seroquel -] 25 mg PO HS 07/05/18 levETIRAcetam [Keppra -] 500 mg PO BID 07/05/18 Physical Exam-Neuro Vital Signs: Vital Signs Temperature 99.5 F 07/06/18 02:16 Pulse Rate 66 07/06/18 06:08 Respiratory Rate 18 07/06/18 06:08 Blood Pressure 154/57 07/06/18 06:08 O2 Sat by Pulse Oximetry (%) 100 07/06/18 08:02 Labs: CBC, BMP 07/06/18 05:30 07/06/18 05:30 INR, PTT INR 1.02 (0.83-1.09) 07/05/18 21:08 Assessment/Plan cc Breakthrough seizure HPI 88 year old female history of Parkinson disease, Dementia, epilepsy ( last seizure 5 years ago). She came with a tonic clonic seizure, no tongue bite. Patient had ct head it was unremarkable. She is on aricept, sinemet and keppra 500 mg po bid . Patient is on abx for septicemia. P Allergies/Adverse Reactions: Allergies Allergy/AdvReac Type Severity Reaction Status Date / Time No Known Allergies Allergy Verified 07/05/18 20:56 Home Medications: Ambulatory Orders Carbidopa/Levodopa 25/100 [Sinemet 25/100 -] 1 each PO DAILY 07/05/18 Donepezil HCl [Aricept] 10 mg PO DAILY 07/05/18 Escitalopram Oxalate [Lexapro -] 10 mg PO DAILY 07/05/18 Olmesartan Medoxomil [Benicar] 20 mg PO DAILY 07/05/18 Quetiapine Fumarate [Seroquel -] 25 mg PO HS 07/05/18 levETIRAcetam [Keppra -] 500 mg PO BID 07/05/18 Neurological Examiantion Patient is obtunded, and at time repsond to verbal stimuli she is wincing to pain and withdraw to painful stimuli no neck stiffness pupils is small and reactive moving all extremity ct head is normal Assessment- Breakthrough seizure ? induced by septicemia Plan- obtain keppra level, and keppra can be increased to 750 mg for few days - as per records she was not on dilantin -restart sinemet and aricept - unlikley to be stroke, continue supportive care Thankign you so much Davie Hughes MD
--- NOTE | 2018-07-06 10:23 | EKG ---
Test Reason : Blood Pressure : / mmHG Vent. Rate : 091 BPM Atrial Rate : 091 BPM P-R Int : 152 ms QRS Dur : 062 ms QT Int : 422 ms P-R-T Axes : 069 013 025 degrees QTc Int : 519 ms NORMAL SINUS RHYTHM NONSPECIFIC ST ABNORMALITY PROLONGED QT ABNORMAL ECG WHEN COMPARED WITH ECG OF 14-FEB-2018 16:27, SINUS RHYTHM HAS REPLACED JUNCTIONAL RHYTHM VENT. RATE HAS INCREASED BY [address] NOW DEPRESSED IN ANTEROLATERAL LEADS QT HAS LENGTHENED Confirmed by FACUNDO CORDOBA MD ([id number]) on 07/06/2018 10:23:05 AM Referred By: Confirmed By:FACUNDO CORDOBA MD
[2018-07-06] MEDS ORDERED: POTASSIUM CHLORIDE TABS 20 MEQ TABLET.ER (FP) PO ONE (10:59)
--- NOTE | 2018-07-06 12:19 | PN ---
Teaching Attending Note Name of Resident: [employer] ATTENDING PHYSICIAN STATEMENT I saw and evaluated the patient. I reviewed the resident's note and discussed the case with the resident. I agree with the resident's findings and plan as documented. SUBJECTIVE: Pt seen and examined in the ICU. No further seizures noted. Somnolent but appears comfortable. OBJECTIVE: Vital Signs Period Temp Pulse Resp BP Sys/[place] Pulse Ox Last 24 Hr 98.4 F-99.5 F 62-105 14-21 89-159/47-69 94-100 Intake & Output 07/03/18 07/04/18 07/05/18 07/06/18 23:59 23:59 23:59 23:59 Intake Total 450 Output Total 600 Balance -150 Weight 45.359 kg 49.351 kg Gen: somnolent Heart: RRR Lung: decreased breath sounds at the bases Abd: soft, nontender Ext: no edema CBC, BMP 07/06/18 05:30 07/06/18 05:30 Active Medications Carbidopa/Levodopa (Sinemet 25/100 -) 1 each PO BID [facility] Donepezil HCl (Aricept -) 10 mg PO DAILY [facility] Heparin Sodium (Porcine) (Heparin -) 5,000 unit SQ BID MATILDE Last Admin: 07/06/18 09:17 Dose: 5,000 unit Dextrose/Sodium Chloride (D5-1/2ns -) 1,000 mls @ 75 mls/hr IV ASDIR MATILDE Last Admin: 07/06/18 04:00 Dose: 75 mls/hr Vancomycin HCl 1,000 mg/ (Dextrose) 250 mls @ 166.667 mls/hr IVPB Q12H MATIL[facility]; Protocol Last Admin: 07/06/18 04:00 Dose: Not Given Piperacillin Sod/Tazobactam (Sod 3.375 gm/ Dextrose) 50 mls @ 100 mls/hr IVPB Q8H-IV [facility]IL[facility]; Protocol Piperacillin Sod/Tazobactam (Sod 3.375 gm/ Dextrose) 50 mls @ 100 mls/hr IVPB Q8H [facility] Stop: 07/06/18 16:29 Last Admin: 07/06/18 08:31 Dose: 100 mls/hr Vancomycin HCl 1,000 mg/ (Dextrose) 250 mls @ 166.667 mls/hr IVPB ONCE ONE Stop: 07/06/18 14:29 Levetiracetam (Keppra Injection -) 750 mg IVPB BID [facility] ASSESSMENT AND PLAN: Seizure Episode Known Seizure Disorder Lactic Acidosis resolved HTN h/o CVA Alzheimer's dementia Parkinsons r/o UTI - continue antiepileptics - IVF - aspiration precautions - on empiric antibiotics, can de-escalate to ceftriaxone for possible UTI - f/u cultures - O2 to keep SpO2 >90% - DVT prophylaxis - can monitor on floor
[2018-07-06] MEDS ORDERED: VANCOMYCIN 1,000 MG in DEXTROSE 5%-WATER - 250 ML IVPB ONE (13:00)
--- NOTE | 2018-07-06 13:19 | CONSULT ---
Admitting History and Physical - Primary Care Physician PCP: Erlinda Crespo - Admission History of Present Illness: 88 year old female history of Parkinson disease, Dementia, epilepsy ( last seizure 5 years ago). She came with a tonic clonic seizure, no tongue bite. Patient had ct head it was unremarkable. She is on aricept, sinemet and keppra 500 mg po bid . Patient is on abx for septicemia. 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 She gets OOB in w/c daily, eats soft food with rice, thin liquids, but unable to communicate. 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 Readily opened mouth for PO trials.) Attention: Distractible Ability to Follow Directions: Poor - Hearing Hearing: Functional Hearing Aide: No Speech Evaluation - Communication Primary Language: TAGALOG Communication: Yes: Aphasia, Non-Communicable Oral Expression Ability: Yes: Severe Impairment, Non-Verbal (vocal) - Speech Production Able to Make Needs Known: Yes: Severely Impaired - Language/Auditory Comprehension Observation: Able to respond to yes/no queries: No, Comprehends Conversational Speech: No - Language/Verbal Expression Aphasia: Yes: Nonfluent (Global Aphasia suspected. "She can't talk or understand since her stroke.") Able to Communicate Wants and Needs: Yes: Severely Impaired Functional Communication Status: Yes: Severely Impaired - Swallow Evaluation/Bedside Assessment Current Nutritional Intake: NPO Oral Secretions: Yes: WFL, Drooling (slight) Dentition: Yes: Edentulous Facial Symmetry at Rest: Symmetrical Lingual Movement: Symmetric Lingual Speed of Movement: Normal Rate of Intake: WFL Bolus Size: WFL Labial Seal: WFL Oral Prep Time: WFL A-P Transit: WFL Pocketing: None Timing of Swallow: Delayed Coughing/Throat Clear: No (puree/thin liquid but at risk) Recommendations - Speech Evaluation, Impression/Plan Impression: 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 Readily accepts puree with delayed but brisk swallow. - Dysphagia Impressions/Plan Dysphagia Impressions: Mild Impairment, Ongoing Evaluation *Silent aspiration: cannot be R/O at bedside Dysphagia Treatment Plan: Small Bites, Chin Tuck/Down, Trial Feedings, Safe Rate , 1/2 tsp. at a time, Elevate HOB during feed Recommendations: Modified Barium Swallow (if cough,congestion,fever) - Recommendations Diet Consistency: Dysphagia Pureed Medication Administration: Crushed with applesauce Liquids: [place] Thick Supplement: Magic Cup, Other (Ensure compact)
[2018-07-06] MEDS ORDERED: PT OWN MED DRAWER 7, Y5N ONE (13:26)
--- NOTE | 2018-07-06 13:28 | ECHO ---
Name: IVA PALOMO Exam:Adult Echocardiogram Study Date: 07/06/2018 10:28 AM Age: 88 yrs Reason For Study: unresponsiveness Height: 60 in Weight: 107 lb BSA: 1.4 m2 MMode/2D Measurements & Calculations IVSd: 1.2 cm Ao root diam: 2.8 cm LVIDd: 3.5 cm LVIDs: 2.3 cm LVPWd: 1.0 cm LVPWs: 1.7 cm EDV(Teich): 50.5 ml ESV(Teich): 17.5 ml Doppler Measurements & Calculations MV E max dylan: 90.3 cm/sec Ao V2 max: 152.0 cm/sec MV A max dylan: 114.0 cm/sec Ao max P.4 mmHg MV E/A: 0.79 AI P1/2t: 560.9 msec MV dec time: 0.21 sec AI max dylan: 320.3 cm/sec LV V1 max P.3 mmHg AI max P.1 mmHg LV V1 max: 91.3 cm/sec AI dec slope: 167.2 cm/sec2 MR max dylan: 320.8 cm/sec TR max dylan: 209.3 cm/sec MR max P.2 mmHg TR max P.6 mmHg PA V2 max: 78.9 cm/sec Med Peak E' Dylan: 6.5 cm/sec PA max P.5 mmHg Med E/e': 14.0 Lat Peak E' Dylan: 7.0 cm/sec Lat E/e': 12.9 Procedure The study was technically adequate with some images being suboptimal in quality. Left Ventricle The left ventricular size, thickness and function are normal. Ejection Fraction = 60-65%. Grade I dara stolic dysfunction, (abnormal relaxation pattern). Right Ventricle The right ventricle is normal in size and function. Atria Normal left and right atrial size and function. Mitral Valve There is moderate mitral annular calcification. The mitral valve is normal. There is trace mitral regurgitation. Tricuspid Valve The tricuspid valve is not well visualized, but is grossly normal. There is mild tricuspid regurgitat ion. There was insufficient TR detected to calculate RV systolic pressure. Aortic Valve There is mild aortic sclerosis.;. The aortic valve opens well. Trace aortic regurgitation. Pulmonic Valve The pulmonic valve is not well visualized. There is no pulmonic valvular regurgitation. Great Vessels The aortic root is normal size. Pericardium/Pleura There is no pericardial effusion. Interpretation Summary Compared to the prior echo report on 02/17/2018, there is no significant change. The left ventricular size, thickness and function are normal The right ventricle is normal in size and function. There is mild aortic sclerosis.; There is moderate mitral annular calcification. There is trace mitral regurgitation. There is mild tricuspid regurgitation. Normal left and right atrial size and function. Ejection Fraction = 60-65%. Grade I diastolic dysfunction, (abnormal relaxation pattern). Trace aortic regurgitation. Gordo Xavier MD 07/06/2018 01:23 PM
[2018-07-06] MEDS: CARBIDOPA/LEVODOPA 25/100 TABLET (FP) PO SCH ×2 (13:35→21:44)
[2018-07-06] MEDS ORDERED: POTASSIUM CHLORIDE ORAL LIQUID 20 MEQ/15 ML PO ONE (13:51)
[2018-07-06] MEDS ORDERED: CEFTRIAXONE 1,000 MG in DEXTROSE 5%-WATER - 50 ML IVPB SCH (14:00)
--- NOTE | 2018-07-06 14:00 | CON.ID ---
Consult Consult Specialty:: infectious diseases Referred by:: Reason for Consultation:: sepsis,lethargy,leukocytosis - History of Present Illness Chief Complaint: lethargy History of Present Illness: patient is non verbal and non communicative history obtained from the notes and the 88 year old female with a PMH of CVA, Parkinson's, Alzheimer's, HTN, seizure disorder( last one 5 years ago), was admitted by family after her witnessed a seizure around 6:30 PM. It lasted 2-3 minutes, involved shaking of her lower and upper extremities, no tongue biting, patient was seen by neurology and was admitted to icu for further mgmt. 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 Cardio/Vascular: Yes: HTN Psych: Yes: Depression - Past Surgical History Past Surgical History: Yes: None - Alcohol/Substance Use Hx Alcohol Use: No - Smoking History Smoking history: Never smoked Have you smoked in the past 12 months: No Aproximately how many cigarettes per day: 0 Home Medications - Allergies Allergies/Adverse Reactions: Allergies Allergy/AdvReac Type Severity Reaction Status Date / Time No Known Allergies Allergy Verified 07/05/18 20:56 - Home Medications Home Medications: Ambulatory Orders Carbidopa/Levodopa 25/100 [Sinemet 25/100 -] 1 each PO DAILY 07/05/18 Donepezil HCl [Aricept] 10 mg PO DAILY 07/05/18 Escitalopram Oxalate [Lexapro -] 10 mg PO DAILY 07/05/18 Olmesartan Medoxomil [Benicar] 20 mg PO DAILY 07/05/18 Quetiapine Fumarate [Seroquel -] 25 mg PO HS 07/05/18 levETIRAcetam [Keppra -] 500 mg PO BID 07/05/18 Review of Systems Unable to obtain ROS, reason: unable to obtain Physical Exam Vital Signs: Vital Signs Temperature 98.5 F 07/06/18 10:00 Pulse Rate 63 07/06/18 12:00 Respiratory Rate 17 07/06/18 12:00 Blood Pressure 139/65 07/06/18 12:00 O2 Sat by Pulse Oximetry (%) 100 07/06/18 08:02 Constitutional: Yes: Well Nourished, No Distress, Calm, Other (lethargic) Cardiovascular: Yes: Regular Rate and Rhythm Respiratory: Yes: Regular, On Nasal O2, Poor Air Entry (at the bases) Gastrointestinal: Yes: Normal Bowel Sounds, Soft Neurological: Yes: Lethargy, Other (non communicative) Psychiatric: Yes: Other Labs: CBC, BMP 07/06/18 05:30 07/06/18 05:30 Imaging - Results Chest X-ray: Report Reviewed, Image Reviewed Ultrasound: Report Reviewed, Image Reviewed Assessment/Plan Problem List - Problems (1) Parkinsons Code(s): G20 - PARKINSON'S DISEASE (2) Alzheimer's dementia Code(s): G30.9 - ALZHEIMER'S DISEASE, UNSPECIFIED; F02.80 - DEMENTIA IN OTH DISEASES CLASSD ELSWHR W/O BEHAVRL DISTURB (3) Lactic acidosis Code(s): E87.2 - ACIDOSIS (4) Seizure disorder Code(s): G40.909 - EPILEPSY, UNSP, NOT INTRACTABLE, WITHOUT STATUS EPILEPTICUS (5) ARF (acute renal failure) Code(s): N17.9 - ACUTE KIDNEY FAILURE, UNSPECIFIED (6) HLD (hyperlipidemia) Code(s): E78.5 - HYPERLIPIDEMIA, UNSPECIFIED (7) HTN (hypertension) Code(s): I10 - ESSENTIAL (PRIMARY) HYPERTENSION patient evaluated and seen plan will stop vanco will continue ceftriaxone for now continue monitoring mental status rest as per icu and the team hydration will await for all the cx reports once we have them will decide further abx mgmt cc time 40 min
--- NOTE | 2018-07-06 16:54 | PN ---
Physical Exam: SUBJECTIVE: Patient seen and examined. Pt. is non-verbal at baseline. No fevers , chills or acute events overnight. OBJECTIVE: Vital Signs Period Temp Pulse Resp BP Sys/Rowland Pulse Ox Last 24 Hr 98.4 F-99.5 F 62-105 14-21 89-159/47-69 94-100 GENERAL: The patient is obtunded, responsive to painful stimuli HEAD: Normal with no signs of gross trauma. EYES: Pupils were reactive to light LUNGS: Decreased breath sounds, clear to auscultation bilaterally, no wheezes, no crackles, no accessory muscle use- limited d/t body habitus HEART: Regular rate and rhythm, S1, S2 without murmur ABDOMEN: Soft, nontender, nondistended, normoactive bowel sounds, no guarding, Torrez in place draining clear frank colored urine EXTREMITIES: Trace edema, no calf-tenderness, warm, baseline rigidity in upper limbs SKIN: Warm, dry, normal turgor Laboratory Results - last 24 hr 07/05/18 07/05/18 07/05/18 21:08 21:08 21:08 WBC 11.7 H RBC 3.34 L Hgb 9.8 L Hct 30.6 L MCV 91.5 MCH 29.4 MCHC 32.1 RDW 13.9 Plt Count 216 MPV 8.6 Absolute Neuts (auto) 10.0 H Total Counted 100 Neutrophils % 85.9 H D Neutrophils % (Manual) 85.0 H Lymphocytes % 6.1 L D Lymphocytes % (Manual) 10.0 Monocytes % 6.4 Monocytes % (Manual) 5 Eosinophils % 1.2 Basophils % 0.4 Nucleated RBC % 0 Hypochromia 1+ Platelet Estimate Adequate Platelet Comment No clumping noted Anisocytosis 1+ Macrocytosis 1+ PT with INR 11.50 INR 1.02 PTT (Actin FS) 29.2 VBG pH POC VBG pCO2 POC VBG pO2 Mixed VBG HCO3 Sodium Potassium Chloride Carbon Dioxide Anion Gap BUN Creatinine Creat Clearance w eGFR Random Glucose Lactic Acid Calcium Ferritin Total Bilirubin AST ALT Alkaline Phosphatase Troponin I Total Protein Albumin Urine Color Dkyellow Urine Appearance Slcloudy Urine pH 5.0 Ur Specific Hardesty 1.019 Urine Protein 3+ H Urine Glucose (UA) Negative Urine Ketones Trace H Urine Blood 1+ H Urine Nitrite Negative Urine Bilirubin Negative Urine Urobilinogen Negative Ur Leukocyte Esterase Negative Urine WBC (Auto) 11 Urine RBC (Auto) 6 Ur Epithelial Cells Rare Hyaline Casts 7 Urine Mucus Moderate Phenytoin 07/05/18 07/05/18 07/05/18 21:08 21:08 21:08 WBC RBC Hgb Hct MCV MCH MCHC RDW Plt Count MPV Absolute Neuts (auto) Total Counted Neutrophils % Neutrophils % (Manual) Lymphocytes % Lymphocytes % (Manual) Monocytes % Monocytes % (Manual) Eosinophils % Basophils % Nucleated RBC % Hypochromia Platelet Estimate Platelet Comment Anisocytosis Macrocytosis PT with INR INR PTT (Actin FS) VBG pH 7.18 L* POC VBG pCO2 36.1 L POC VBG pO2 43.0 Mixed VBG HCO3 12.9 L* Sodium 147 H Potassium 3.7 Chloride 112 H Carbon Dioxide 13 L Anion Gap 22 H BUN 18 Creatinine 1.2 H Creat Clearance w eGFR 42.60 Random Glucose 105 Lactic Acid Calcium 8.0 L Ferritin Total Bilirubin 0.2 AST 27 ALT 10 L Alkaline Phosphatase 75 Troponin I < 0.02 Total Protein 6.1 L Albumin 3.1 L Urine Color Urine Appearance Urine pH Ur Specific Hardesty Urine Protein Urine Glucose (UA) Urine Ketones Urine Blood Urine Nitrite Urine Bilirubin Urine Urobilinogen Ur Leukocyte Esterase Urine WBC (Auto) Urine RBC (Auto) Ur Epithelial Cells Hyaline Casts Urine Mucus Phenytoin 07/05/18 07/05/18 07/06/18 21:08 23:44 05:30 WBC RBC Hgb Hct MCV MCH MCHC RDW Plt Count MPV Absolute Neuts (auto) Total Counted Neutrophils % Neutrophils % (Manual) Lymphocytes % Lymphocytes % (Manual) Monocytes % Monocytes % (Manual) Eosinophils % Basophils % Nucleated RBC % Hypochromia Platelet Estimate Platelet Comment Anisocytosis Macrocytosis PT with INR INR PTT (Actin FS) VBG pH POC VBG pCO2 POC VBG pO2 Mixed VBG HCO3 Sodium 148 H Potassium 3.1 L Chloride 111 H Carbon Dioxide 27 Anion Gap 10 BUN 14 Creatinine 0.9 Creat Clearance w eGFR 59.37 Random Glucose 76 Lactic Acid 14.4 H* 3.9 H* Calcium 8.0 L Ferritin 103.4 Total Bilirubin 0.6 AST 31 ALT 11 L Alkaline Phosphatase 68 Troponin I Total Protein 6.0 L Albumin 3.1 L Urine Color Urine Appearance Urine pH Ur Specific Hardesty Urine Protein Urine Glucose (UA) Urine Ketones Urine Blood Urine Nitrite Urine Bilirubin Urine Urobilinogen Ur Leukocyte Esterase Urine WBC (Auto) Urine RBC (Auto) Ur Epithelial Cells Hyaline Casts Urine Mucus Phenytoin 07/06/18 07/06/18 07/06/18 05:30 05:30 05:30 WBC 11.0 H RBC 3.40 L Hgb 10.1 L Hct 30.2 L MCV 88.9 MCH 29.8 MCHC 33.6 RDW 13.7 Plt Count 210 MPV 8.3 Absolute Neuts (auto) 8.6 H Total Counted Neutrophils % 78.5 Neutrophils % (Manual) Lymphocytes % 9.2 D Lymphocytes % (Manual) Monocytes % 10.4 H Monocytes % (Manual) Eosinophils % 1.4 Basophils % 0.5 Nucleated RBC % 0 Hypochromia Platelet Estimate Platelet Comment Anisocytosis Macrocytosis PT with INR INR PTT (Actin FS) VBG pH POC VBG pCO2 POC VBG pO2 Mixed VBG HCO3 Sodium Potassium Chloride Carbon Dioxide Anion Gap BUN Creatinine Creat Clearance w eGFR Random Glucose Lactic Acid 1.2 Calcium Ferritin Total Bilirubin AST ALT Alkaline Phosphatase Troponin I Total Protein Albumin Urine Color Urine Appearance Urine pH Ur Specific Hardesty Urine Protein Urine Glucose (UA) Urine Ketones Urine Blood Urine Nitrite Urine Bilirubin Urine Urobilinogen Ur Leukocyte Esterase Urine WBC (Auto) Urine RBC (Auto) Ur Epithelial Cells Hyaline Casts Urine Mucus Phenytoin < 2.5 L Active Medications Current Medications Carbidopa/Levodopa (Sinemet 25/100 -) 1 each PO BID REPLACED BY [facility] Last Admin: 07/06/18 13:35 Dose: 1 each Donepezil HCl (Aricept -) 10 mg PO DAILY REPLACED BY [facility] Heparin Sodium (Porcine) (Heparin -) 5,000 unit SQ BID REPLACED BY [facility] Last Admin: 07/06/18 09:17 Dose: 5,000 unit Dextrose/Sodium Chloride (D5-1/2ns -) 1,000 mls @ 75 mls/hr IV ASDIR [facility]ILDE Last Admin: 07/06/18 04:00 Dose: 75 mls/hr Vancomycin HCl 1,000 mg/ (Dextrose) 250 mls @ 166.667 mls/hr IVPB Q12H MATILDE; Protocol Last Admin: 07/06/18 04:00 Dose: Not Given Piperacillin Sod/Tazobactam (Sod 3.375 gm/ Dextrose) 50 mls @ 100 mls/hr IVPB Q8H-IV MATILDE; Protocol Ceftriaxone Sodium 1 gm/ (Dextrose) 50 mls @ 100 mls/hr IVPB DAILY REPLACED BY [facility] Levetiracetam (Keppra Injection -) 750 mg IVPB BID REPLACED BY [facility] ASSESSMENT/PLAN: The patient is a 88 year old female with a PMH of CVA, Parkinson's, Alzheimers, HTN, seizure disorder (last one 5 years ago) presented s/p seizure earlier tonight. She is admitted to ICU for seizures, r/o stroke, lactic acidosis. #Neurology -Hx. of CVA -Hx. of seizures- No seizure activity noted during hospital course -Hx. of Parkinson's and Alzheimer's -c/w aspiration precautions -c/w Keppra 750mg BID per Dr. Hughes, can increase Keppra to 750mg for a a few days. -Phenytoin level <2.5 -Head CT: negative for acute pathology, positive for chronic ischemic changes -restart cinemet and aricept per Dr. Hughes #Cardiovascular -Cardiology consult appreciated -Echo (07/06/18)- EF 60-65% unchanged from previous echo in February 2018: mild , mild TR, trace MR and AR -Given Vanc and Zosyn in ED, switched to Ceftriaxone (07/06/18) per Dr. Benton -Carotid Doppler showed no hemodynamically significant stenosis b/l -F/u Iron studies #Pulmonary -c/w O2 to keep SpO2 >90% -CXR negative for any changes when compared with previous x-ray -F/u cultures -Speech and Swallow appreciated- started on honey thick dysphagia puree diet. #FEN -monitor electrolytes -K+: 3.1 (07/06/18) -Admission Lactate 14.4-->1.2(07/06/18) -potassium repleted -D5-1/2 NS @ 75ml/hr #DVT PPx. -SCDs -Heparin restarted #Dispo -Med/Surg Visit type - Emergency Visit Emergency Visit: Yes ED Registration Date: 07/05/18 Care time: The patient presented to the Emergency Department on the above date and was hospitalized for further evaluation of their emergent condition. - New Patient This patient is new to me today: Yes Date on this admission: 07/06/18 - Critical Care Critical Care patient: No - Discharge Referral Referred to [facility] No
[2018-07-06] MEDS ORDERED: cefTRIAXone SODIUM 1 GM VIAL ONE (17:31)
[2018-07-06] MEDS: CEFTRIAXONE 1 GM in DEXTROSE 5%-WATER - 50 ML IVPB SCH (17:36)
--- NOTE | 2018-07-06 19:16 | HP ---
Admitting History and Physical - Admission History of Present Illness: Pt is a 88 y/o female with a PMH of CVA, Parkinson's, Alzheimer's, HTN, seizure disorder( last one 5 years ago), minimally verbal and uses a wheelchair. Pt is unable to give history therefore info is being taken from EMR. She was brought in by family after her witnessed a seizure around 6:30 PM. It lasted 2- 3 minutes, involved shaking of her lower and upper extremities, no tongue biting , unsure if she urinated. Code flores (stroke) was called in ED, sepsis protocol set was also ordered due to lactic acid of 14 CT head was negative for acute pathology. Pt was admitted to ICU with a metabolic acidosis. 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 Cardiovascular: Yes: HTN Psych: Yes: Depression - Past Surgical History Past Surgical History: Yes: None - Smoking History Smoking history: Never smoked Have you smoked in the past 12 months: No Aproximately how many cigarettes per day: 0 - Alcohol/Substance Use Hx Alcohol Use: No Home Medications - Allergies Allergies/Adverse Reactions: Allergies Allergy/AdvReac Type Severity Reaction Status Date / Time No Known Allergies Allergy Verified 07/05/18 20:56 - Home Medications Home Medications: Ambulatory Orders Carbidopa/Levodopa 25/100 [Sinemet 25/100 -] 1 each PO DAILY 07/05/18 Donepezil HCl [Aricept] 10 mg PO DAILY 07/05/18 Escitalopram Oxalate [Lexapro -] 10 mg PO DAILY 07/05/18 Olmesartan Medoxomil [Benicar] 20 mg PO DAILY 07/05/18 Quetiapine Fumarate [Seroquel -] 25 mg PO HS 07/05/18 levETIRAcetam [Keppra -] 500 mg PO BID 07/05/18 Family Disease History - Family Disease History Family History: Unable to Obtain Review of Systems Unable to obtain ROS, reason: Post-ictal state/Dementia Physical Examination Vital Signs: Vital Signs Temperature 99 F 07/06/18 18:00 Pulse Rate 72 07/06/18 18:00 Respiratory Rate 20 07/06/18 18:00 Blood Pressure 133/47 07/06/18 18:00 O2 Sat by Pulse Oximetry (%) 100 07/06/18 08:02 HENT: Yes: WNL Neck: Yes: WNL, Supple Cardiovascular: Yes: WNL, Regular Rate and Rhythm Respiratory: Yes: WNL, Regular, CTA Bilaterally Gastrointestinal: Yes: WNL, Normal Bowel Sounds, Soft Musculoskeletal: Yes: WNL Extremities: Yes: WNL Edema: No Neurological: Yes: Other (Awake and nonverbal) ...Motor Strength: WNL Labs: CBC, BMP 07/06/18 05:30 07/06/18 05:30 Problem List - Problems (1) Seizure disorder Assessment/Plan: Cont keppra As per neuro As per family pt was on dilantin however phenytoin level was subtherapeutic Code(s): G40.909 - EPILEPSY, UNSP, NOT INTRACTABLE, WITHOUT STATUS EPILEPTICUS (2) Lactic acidosis Assessment/Plan: ?Due to sepsis Cont emporoc IV antibxs ID consult Follow cultures Code(s): E87.2 - ACIDOSIS (3) Parkinsons Code(s): G20 - PARKINSON'S DISEASE (4) HTN (hypertension) Code(s): I10 - ESSENTIAL (PRIMARY) HYPERTENSION (5) HLD (hyperlipidemia) Code(s): E78.5 - HYPERLIPIDEMIA, UNSPECIFIED (6) Alzheimer's dementia Code(s): G30.9 - ALZHEIMER'S DISEASE, UNSPECIFIED; F02.80 - DEMENTIA IN OTH DISEASES CLASSD ELSWHR W/O BEHAVRL DISTURB
[2018-07-06] MEDS: levETIRAcetam 500 MG/5 ML INJECTION VIAL IVPB SCH (21:44)
[2018-07-06] MEDS ORDERED: CHLORHEXIDINE GLUCONATE 4% CLEANSER FOR DECOLONIZATION TP SCH (22:00)
[2018-07-06] MEDS ORDERED: QUEtiapine FUMARATE 25 MG TABLET (FP) PO SCH (22:00)
[2018-07-07] MEDS ORDERED: PT OWN MED DRAWER 7, Y5N ONE (05:54)
[2018-07-07 06:52] LABS: BASO % 0.6 % (0-2.0); HEMATOCRIT 27.4 % (32.4-45.2); LYMPH % 13.1 % (8-40); MCH 29.5 pg (25.7-33.7); MCHC 32.9 g/dl (32.0-36.0); MEAN CELL VOLUME 89.6 fl (80-96); MEAN PLT VOLUME 8.6 fl (7.5-11.1); MONO % 9.9 % (3.8-10.2); NEUT % 73.4 % (42.8-82.8); PLATELET COUNT 158 K/MM3 (134-434); RBC 3.06 M/mm3 (3.60-5.2); RDW 13.5 % (11.6-15.6); WHITE BLOOD COUNT 7.7 K/mm3 (4.0-10.0)
[2018-07-07 07:08] LABS: ANION GAP 6 MMOL/L (8-16); BLOOD UREA NITROGEN 7 mg/dL (7-18); CALCIUM 7.5 mg/dL (8.5-10.1); CHLORIDE 110 mmol/L (98-107); CO2 30 mmol/L (21-32); GLUCOSE,RANDOM 93 mg/dL (74-106); MAGNESIUM 1.8 mg/dL (1.8-2.4); PHOSPHOROUS 2.7 mg/dL (2.5-4.9); POTASSIUM 3.2 mmol/L (3.5-5.1); SODIUM 146 mmol/L (136-145)
[2018-07-07 08:06] LABS: SERUM IRON SATURATION 18 % (15-55); TOTAL IRON BINDING CAPACITY 237 ug/dL (250-450); UIBC 195 ug/dL (118-369)
[2018-07-07] MEDS ORDERED: POTASSIUM CHLORIDE ORAL LIQUID 20 MEQ/15 ML PO ONE (08:45)
[2018-07-07] MEDS ORDERED: cefTRIAXone SODIUM 1 GM VIAL ONE (09:54)
[2018-07-07] MEDS ORDERED: DEXTROSE 5%-WATER - 50 ML IVPB ONE (09:55)
[2018-07-07] MEDS ORDERED: CEFTRIAXONE 1 GM in DEXTROSE 5%-WATER - 50 ML IVPB SCH (10:00)
[2018-07-07] MEDS ORDERED: DONEPEZIL HCL 10 MG TABLET (FP) PO SCH (10:00)
[2018-07-07] MEDS: CARBIDOPA/LEVODOPA 25/100 TABLET (FP) PO SCH ×2 (10:01→21:19)
[2018-07-07] MEDS: CEFTRIAXONE 1 GM in DEXTROSE 5%-WATER - 50 ML IVPB SCH (10:01)
[2018-07-07] MEDS: HEPARIN NA (PORCINE) 5,000 UNITS/ML 1ML VIAL SQ SCH ×2 (10:01→21:19)
--- NOTE | 2018-07-07 10:54 | PN ---
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 (short form) - Note 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: HPI 88 year old female history of Parkinson disease, Dementia, epilepsy ( last seizure 5 years ago). She came with a tonic clonic seizure, no tongue bite. Patient had ct head it was unremarkable. She is on aricept, sinemet and keppra 500 mg po bid . Patient is on abx for septicemi SUBJECTIVE: She remains confused, afebrile and no more seizure, seems to be as baseline. NEUROLOGICAL EXAMINATION: Spontaneous eye opening is present, moans and not able to follow command she is wincing to pain and withdraw to painful stimuli no neck stiffness pupils is small and reactive moving all extremity ct head is normal Assessment- Breakthrough seizure ? induced by septicemia Plan- continue keppra dose at current level -continue sinemet and aricept - unlikley to be stroke, continue supportive care Thankign you so much Davie Hughes MD
[2018-07-07] MEDS: levETIRAcetam 500 MG/5 ML INJECTION VIAL IVPB SCH ×2 (10:55→21:19)
[2018-07-07] MEDS: DEXTROSE 5%-0.45% SALINE 1,000 ML IV SCH (10:57)
[2018-07-07] MEDS ORDERED: levETIRAcetam 250 MG TABLET (FP) PO SCH (12:00)
[2018-07-07] MEDS ORDERED: levETIRAcetam 500 MG TABLET (FP) PO SCH (12:00)
--- NOTE | 2018-07-07 12:03 | PN ---
Physical Exam: SUBJECTIVE: Patient seen and examined. Pt. is non-verbal but does make vocal sounds. Pt. pulled out right AC line, R hand line was placed. Per Pt. family, the Pt. is at baseline. OBJECTIVE: Vital Signs Period Temp Pulse Resp BP Sys/Rowland Pulse Ox Last 24 Hr 98.4 F-99 F 57-72 17-24 133-161/47-84 96-100 GENERAL: NAD, non-verbal, makes vocal sounds, alert, active EYES: PERRL, sclera anicteric, conjunctiva clear. No ptosis; Pt. opens eyes to stimulation. ENT: moist mucous membranes. LUNGS: diffuse crackles, no accessory muscle use- limited exam d/t Pt. un- cooperation HEART: Regular rate and rhythm, S1, S2 without murmur, rub or gallop. ABDOMEN: firm, nontender, nondistended, normoactive bowel sounds, EXTREMITIES: 2+ pulses, warm, well-perfused, no edema, no calf tenderness, motor and sensation grossly intact, capillary refill less than 2 seconds SKIN: Warm, dry, normal turgor Laboratory Results - last 24 hr 07/06/18 07/07/18 07/07/18 05:30 05:45 05:45 WBC 7.7 RBC 3.06 L Hgb 9.0 L Hct 27.4 L MCV 89.6 MCH 29.5 MCHC 32.9 RDW 13.5 Plt Count 158 D MPV 8.6 Absolute Neuts (auto) 5.6 Neutrophils % 73.4 Lymphocytes % 13.1 D Monocytes % 9.9 Eosinophils % 3.0 D Basophils % 0.6 Nucleated RBC % 0 Sodium 146 H Potassium 3.2 L Chloride 110 H Carbon Dioxide 30 Anion Gap 6 L BUN 7 Creatinine 1.0 Creat Clearance w eGFR 52.57 Random Glucose 93 Calcium 7.5 L Phosphorus 2.7 Magnesium 1.8 Iron 42 TIBC 237 L Iron Saturation 18 Transferrin 174 L Troponin I 07/07/18 05:45 WBC RBC Hgb Hct MCV MCH MCHC RDW Plt Count MPV Absolute Neuts (auto) Neutrophils % Lymphocytes % Monocytes % Eosinophils % Basophils % Nucleated RBC % Sodium Potassium Chloride Carbon Dioxide Anion Gap BUN Creatinine Creat Clearance w eGFR Random Glucose Calcium Phosphorus Magnesium Iron TIBC Iron Saturation Transferrin Troponin I 0.13 H Active Medications Current Medications Carbidopa/Levodopa (Sinemet 25/100 -) 1 each PO BID [facility] Last Admin: 07/07/18 10:01 Dose: 1 each Donepezil HCl (Aricept -) 10 mg PO DAILY [facility] Last Admin: 07/07/18 10:00 Dose: 10 mg Heparin Sodium (Porcine) (Heparin -) 5,000 unit SQ BID [facility] Last Admin: 07/07/18 10:01 Dose: 5,000 unit Ceftriaxone Sodium 1 gm/ (Dextrose) 50 mls @ 100 mls/hr IVPB DAILY [facility] Last Admin: 07/07/18 10:01 Dose: 100 mls/hr Levetiracetam (Keppra Injection -) 750 mg IVPB BID [facility] Last Admin: 07/07/18 10:55 Dose: 750 mg Levetiracetam (Keppra -) 250 mg PO BID [facility] Levetiracetam (Keppra -) 500 mg PO BID [facility] ASSESSMENT/PLAN: The patient is a 88 year old female with a PMH of CVA, Parkinson's, Alzheimers, HTN, seizure disorder (last one 5 years ago) presented s/p seizure earlier tonight. She is admitted to ICU for seizures, r/o stroke, lactic acidosis. #Neurology -Hx. of CVA -Hx. of seizures- No seizure activity noted during hospital course -Hx. of Parkinson's and Alzheimer's -c/w aspiration precautions -Switched Keppra IVPB 750mg BID to PO -can increase Keppra to 750mg for a a few days per Dr. Hughes. -Phenytoin level <2.5 -Head CT: negative for acute pathology, positive for chronic ischemic changes -c/w cinemet and aricept per Dr. Hughes #Cardiovascular -Cardiology consult appreciated -Echo (07/06/18)- EF 60-65% unchanged from previous echo in February 2018: mild , mild TR, trace MR and AR -Given Vanc and Zosyn in ED, switched to Ceftriaxone (07/06/18) per Dr. Benton -Carotid Doppler showed no hemodynamically significant stenosis b/l -F/u Iron studies #Pulmonary -c/w O2 to keep SpO2 >90% -CXR negative for any changes when compared with previous x-ray -Cultures negative to date. -Speech and Swallow appreciated- started on honey thick dysphagia puree diet. #FEN -monitor electrolytes -K+: 3.2 (07/07/18) -Admission Lactate 14.4-->1.2(07/06/18) -potassium repleted -D/C-ed IVF #DVT PPx. -SCDs -Heparin restarted #Dispo -Med/Surg Visit type - Emergency Visit Emergency Visit: Yes ED Registration Date: 07/05/18 Care time: The patient presented to the Emergency Department on the above date and was hospitalized for further evaluation of their emergent condition. - New Patient This patient is new to me today: No - Critical Care Critical Care patient: No - Discharge Referral Referred to [facility] No
--- NOTE | 2018-07-07 12:07 | PN ---
Teaching Attending Note Name of Resident: Grupo Gramajo ATTENDING PHYSICIAN STATEMENT I saw and evaluated the patient. I reviewed the resident's note and discussed the case with the resident. I agree with the resident's findings and plan as documented. SUBJECTIVE: Pt seen and examined in the ICU. More alert, awake today. No further seizures. OBJECTIVE: Vital Signs Period Temp Pulse Resp BP Sys/Rowland Pulse Ox Last 24 Hr 98.4 F-99 F 57-72 18-24 133-161/47-84 96-100 Intake & Output 07/04/18 07/05/18 07/06/18 07/07/18 23:59 23:59 23:59 23:59 Intake Total 1950 562.5 Output Total 1850 800 Balance 100 -237.5 Weight 45.359 kg 49.351 kg 48.262 kg Gen: NAD at rest, confused Heart: RRR Lung: decreased breath sounds at the bases Abd: soft, nontender Ext: no edema CBC, BMP 07/07/18 05:45 07/07/18 05:45 Active Medications Carbidopa/Levodopa (Sinemet 25/100 -) 1 each PO BID [facility] Last Admin: 07/07/18 10:01 Dose: 1 each Donepezil HCl (Aricept -) 10 mg PO DAILY [facility] Last Admin: 07/07/18 10:00 Dose: 10 mg Heparin Sodium (Porcine) (Heparin -) 5,000 unit SQ BID [facility] Last Admin: 07/07/18 10:01 Dose: 5,000 unit Ceftriaxone Sodium 1 gm/ (Dextrose) 50 mls @ 100 mls/hr IVPB DAILY [facility] Last Admin: 07/07/18 10:01 Dose: 100 mls/hr Levetiracetam (Keppra Injection -) 750 mg IVPB BID [facility] Last Admin: 07/07/18 10:55 Dose: 750 mg Levetiracetam (Keppra -) 250 mg PO BID [facility] Levetiracetam (Keppra -) 500 mg PO BID [facility] ASSESSMENT AND PLAN: Seizure Episode Known Seizure Disorder Lactic Acidosis resolved HTN h/o CVA Alzheimer's dementia Parkinsons r/o UTI - continue antiepileptics - d/c IVF - replete lytes - aspiration precautions - on empiric antibiotics, cultures negative - O2 to keep SpO2 >90% - DVT prophylaxis - can monitor on floor
[2018-07-07] MEDS ORDERED: ONDANSETRON 4 MG/2 ML VIAL ONE (12:30)
[2018-07-07] MEDS ORDERED: ONDANSETRON 4 MG/2 ML VIAL IVPB ONE (12:40)
[2018-07-07] MEDS ORDERED: DEXTROSE 5%-0.45% SALINE 1,000 ML IV SCH (12:45)
--- NOTE | 2018-07-07 13:50 | PN ---
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 Pt found to have vomited bile? this am. Aspiration precautions, Selected Entries 07/06/18 07/06/18 07/06/18 00:57 02:16 10:00 Temperature 98.4 F 99.5 F 98.5 F 07/06/18 07/06/18 07/07/18 18:00 22:00 02:00 Temperature 99 F 98.9 F 98.4 F 07/07/18 06:00 Temperature 98.8 F Laboratory Tests 07/05/18 07/06/18 07/07/18 21:08 05:30 05:45 WBC 11.7 H 11.0 H 7.7 Trial of puree/nectar when medically stable and appropriate.
--- NOTE | 2018-07-07 15:02 | EKG ---
Test Reason : Blood Pressure : / mmHG Vent. Rate : 065 BPM Atrial Rate : 065 BPM P-R Int : 132 ms QRS Dur : 064 ms QT Int : 462 ms P-R-T Axes : 035 013 018 degrees QTc Int : 480 ms POOR DATA QUALITY, INTERPRETATION MAY BE ADVERSELY AFFECTED NORMAL SINUS RHYTHM NORMAL ECG WHEN COMPARED WITH ECG OF 05-JUL-2018 20:52, NO SIGNIFICANT CHANGE WAS FOUND Confirmed by Jeff Bailey ([id number]) on 07/07/2018 3:01:49 PM Referred By: Confirmed By:Jeff Bailey
--- NOTE | 2018-07-07 15:37 | PN ---
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, Physician History of Present Illness: stable no new issues continues to be non verbal - Current Medication List Current Medications: Active Medications Carbidopa/Levodopa (Sinemet 25/100 -) 1 each PO BID [facility] Last Admin: 07/07/18 10:01 Dose: 1 each Donepezil HCl (Aricept -) 10 mg PO DAILY [facility] Last Admin: 07/07/18 10:00 Dose: 10 mg Heparin Sodium (Porcine) (Heparin -) 5,000 unit SQ BID [facility] Last Admin: 07/07/18 10:01 Dose: 5,000 unit Ceftriaxone Sodium 1 gm/ (Dextrose) 50 mls @ 100 mls/hr IVPB DAILY [facility] Last Admin: 07/07/18 10:01 Dose: 100 mls/hr Dextrose/Sodium Chloride (D5-1/2ns -) 1,000 mls @ 75 mls/hr IV ASDIR [facility] Last Admin: 07/07/18 13:12 Dose: 75 mls/hr Levetiracetam (Keppra Injection -) 750 mg IVPB BID [facility] Last Admin: 07/07/18 10:55 Dose: 750 mg - Objective Vital Signs: Vital Signs Temperature 98.8 F 07/07/18 06:00 Pulse Rate 71 07/07/18 06:00 Respiratory Rate 22 07/07/18 06:00 Blood Pressure 143/52 07/07/18 06:00 O2 Sat by Pulse Oximetry (%) 100 07/06/18 22:00 Constitutional: Yes: No Distress, Calm Cardiovascular: Yes: Regular Rate and Rhythm Respiratory: Yes: Regular, CTA Bilaterally Gastrointestinal: Yes: Normal Bowel Sounds, Soft Musculoskeletal: Yes: WNL Extremities: Yes: Other Neurological: Yes: Alert, Other Psychiatric: Yes: Other Labs: CBC, BMP 07/07/18 05:45 07/07/18 05:45 INR, PTT INR 1.02 (0.83-1.09) 07/05/18 21:08 Assessment/Plan Problem List - Problems (1) Parkinsons Code(s): G20 - PARKINSON'S DISEASE (2) Alzheimer's dementia Code(s): G30.9 - ALZHEIMER'S DISEASE, UNSPECIFIED; F02.80 - DEMENTIA IN OTH DISEASES CLASSD ELSWHR W/O BEHAVRL DISTURB (3) Lactic acidosis Code(s): E87.2 - ACIDOSIS (4) Seizure disorder Code(s): G40.909 - EPILEPSY, UNSP, NOT INTRACTABLE, WITHOUT STATUS EPILEPTICUS (5) ARF (acute renal failure) Code(s): N17.9 - ACUTE KIDNEY FAILURE, UNSPECIFIED (6) HLD (hyperlipidemia) Code(s): E78.5 - HYPERLIPIDEMIA, UNSPECIFIED (7) HTN (hypertension) Code(s): I10 - ESSENTIAL (PRIMARY) HYPERTENSION patient evaluated and seen plan stop abx and monitor continue monitoring mental status rest as per icu and the team hydration cc time 40 min
[2018-07-07] MEDS: DEXTROSE 5%-0.45% SALINE 980 ML with POTASSIUM CHLORIDE 40 MEQ IVPB SCH (16:00)
[2018-07-07] MEDS ORDERED: D5-1/2NS+40 MEQ KCL - 40 MEQ/1,000 ML INFUS.BAG IV SCH (16:15)
--- NOTE | 2018-07-07 17:06 | HP ---
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: Alzheimer's, CVA, Dementia, Seizure Cardiovascular: Yes: HTN Psych: Yes: Depression - Past Surgical History Past Surgical History: Yes: None - Smoking History Smoking history: Never smoked Have you smoked in the past 12 months: No Aproximately how many cigarettes per day: 0 - Alcohol/Substance Use Hx Alcohol Use: No Home Medications - Allergies Allergies/Adverse Reactions: Allergies Allergy/AdvReac Type Severity Reaction Status Date / Time No Known Allergies Allergy Verified 07/05/18 20:56 - Home Medications Home Medications: Ambulatory Orders Carbidopa/Levodopa 25/100 [Sinemet 25/100 -] 1 each PO TID 07/05/18 Donepezil HCl [Aricept] 10 mg PO DAILY 07/05/18 Escitalopram Oxalate [Lexapro -] 10 mg PO DAILY 07/05/18 Olmesartan Medoxomil [Benicar] 20 mg PO DAILY 07/05/18 Quetiapine Fumarate [Seroquel -] 25 mg PO BID 07/05/18 levETIRAcetam [Keppra -] 500 mg PO BID 07/05/18 Physical Examination Vital Signs: Vital Signs Temperature 98.8 F 07/07/18 06:00 Pulse Rate 71 07/07/18 06:00 Respiratory Rate 24 07/07/18 09:00 Blood Pressure 143/52 07/07/18 06:00 O2 Sat by Pulse Oximetry (%) 100 07/07/18 09:00 Labs: CBC, BMP 07/07/18 05:45 07/07/18 05:45 Problem List - Problems (1) Seizure disorder Code(s): G40.909 - EPILEPSY, UNSP, NOT INTRACTABLE, WITHOUT STATUS EPILEPTICUS (2) Lactic acidosis Code(s): E87.2 - ACIDOSIS (3) Parkinsons Code(s): G20 - PARKINSON'S DISEASE (4) HTN (hypertension) Code(s): I10 - ESSENTIAL (PRIMARY) HYPERTENSION (5) HLD (hyperlipidemia) Code(s): E78.5 - HYPERLIPIDEMIA, UNSPECIFIED (6) Alzheimer's dementia Code(s): G30.9 - ALZHEIMER'S DISEASE, UNSPECIFIED; F02.80 - DEMENTIA IN OTH DISEASES CLASSD ELSWHR W/O BEHAVRL DISTURB
[2018-07-08 08:41] LABS: ALBUMIN 2.9 g/dl (3.4-5.0); ANION GAP 6 MMOL/L (8-16); BLOOD UREA NITROGEN 6 mg/dL (7-18); CALCIUM 7.8 mg/dL (8.5-10.1); CHLORIDE 111 mmol/L (98-107); CO2 27 mmol/L (21-32); GLUCOSE,RANDOM 97 mg/dL (74-106); MAGNESIUM 1.8 mg/dL (1.8-2.4); PHOSPHOROUS 2.4 mg/dL (2.5-4.9); SODIUM 144 mmol/L (136-145)
--- NOTE | 2018-07-08 09:02 | PN ---
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 (short form) - Note 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: HPI 88 year old female history of Parkinson disease, Dementia, epilepsy ( last seizure 5 years ago). She came with a tonic clonic seizure, no tongue bite. Patient had ct head it was unremarkable. She is on aricept, sinemet and keppra 500 mg po bid . Patient is on abx for septicemia SUBJECTIVE: She remains confused, afebrile and no more seizure, seems to be as baseline. NEUROLOGICAL EXAMINATION: Spontaneous eye opening is present, moans and not able to follow command she is wincing to pain and withdraw to painful stimuli no neck stiffness pupils is small and reactive moving all extremity EXAM is unchanged ct head is normal Assessment- Breakthrough seizure ? induced by septicemia 2. 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
[2018-07-08] MEDS: CARBIDOPA/LEVODOPA 25/100 TABLET (FP) PO SCH ×2 (09:59→22:07)
[2018-07-08] MEDS ORDERED: levETIRAcetam 500 MG/5 ML INJECTION VIAL IVPB SCH ×2 (10:00→22:00)
[2018-07-08] MEDS ORDERED: HEPARIN NA (PORCINE) 5,000 UNITS/ML 1ML VIAL SQ SCH (10:00)
[2018-07-08] MEDS ORDERED: DONEPEZIL HCL 10 MG TABLET (FP) PO SCH (10:00)
--- NOTE | 2018-07-08 12:27 | PN ---
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 Repeated hello, terry, pretty name. Said she was hungry but responded later when food offered. Good vocal quality and precise articulation. Pt demonstrates delayed but brisk swallow, opening her mouth and readily accepting food.Feed only when fully alert. Finely crush meds according to impregnator and drier's guidelines. Add sweetener to increase po acceptance. If difficulty, NPO, MBS
--- NOTE | 2018-07-08 12:30 | PN ---
Teaching Attending Note Name of Resident: Grupo Gramajo ATTENDING PHYSICIAN STATEMENT I saw and evaluated the patient. I reviewed the resident's note and discussed the case with the resident. I agree with the resident's findings and plan as documented. SUBJECTIVE: Pt seen and examined in the ICU. Coughing episode with eating yesterday. No fevers recorded. OBJECTIVE: Vital Signs Period Temp Pulse Resp BP Sys/Rowland Pulse Ox Last 24 Hr 98 F-98.6 F 54-69 16-23 110-164/38-68 97-99 Intake & Output 07/05/18 07/06/18 07/07/18 07/08/18 23:59 23:59 23:59 23:59 Intake Total 1950 921.3 600 Output Total 1850 1550 200 Balance 100 -628.7 400 Weight 45.359 kg 49.351 kg 48.988 kg 49.85 kg Gen: NAD at rest but with frequent coughing Heart: RRR Lung: decreased breath sounds at the bases Abd: soft, nontender Ext: no edema CBC, BMP 07/07/18 05:45 07/08/18 05:30 Active Medications Carbidopa/Levodopa (Sinemet 25/100 -) 1 each PO BID [facility] Last Admin: 07/08/18 09:59 Dose: 1 each Donepezil HCl (Aricept -) 10 mg PO DAILY [facility] Last Admin: 07/08/18 09:59 Dose: 10 mg Heparin Sodium (Porcine) (Heparin -) 5,000 unit SQ BID [facility] Last Admin: 07/08/18 09:58 Dose: 5,000 unit Dextrose/Sodium Chloride (D5-1/2ns+40 Meq Kcl -) 40 meq in 1,000 mls @ 75 mls/ hr IV ASDIR [facility] Last Admin: 07/07/18 15:00 Dose: 75 mls/hr Levetiracetam (Keppra Injection -) 750 mg IVPB BID [facility] Last Admin: 07/08/18 09:58 Dose: 750 mg ASSESSMENT AND PLAN: Seizure Episode Known Seizure Disorder Lactic Acidosis resolved HTN h/o CVA Alzheimer's dementia Parkinsons r/o UTI - continue antiepileptics - continue IVF - replete lytes - aspiration precautions - check CXR - O2 to keep SpO2 >90% - DVT prophylaxis - can monitor on floor
[2018-07-08] MEDS ORDERED: D5-1/2NS+20 MEQ KCL - 20 MEQ/1,000 ML INFUS.BAG IV SCH (13:30)
--- NOTE | 2018-07-08 14:32 | PN ---
Physical Exam: SUBJECTIVE: Patient seen and examined. Low urine output overnight. No seizure activity. No acute events. OBJECTIVE: Vital Signs Period Temp Pulse Resp BP Sys/Rowland Pulse Ox Last 24 Hr 98 F-98.6 F 54-69 16-23 110-164/38-68 97-99 GENERAL: The patient is lying comfortably in bed in no acute distress. EYES: PERRL LUNGS: Crackles in fluid dependent areas, increased wet sounding cough, no accessory muscle use. HEART: Regular rate and rhythm, S1, S2 without murmur ABDOMEN: Soft, nontender, nondistended, normoactive bowel sounds, no guarding EXTREMITIES: 2+ dorsal pedal, pulses, warm, well-perfused, no edema, no calf tenderness. PSYCH: Normal mood, normal affect. SKIN: Warm, dry Laboratory Results - last 24 hr 07/07/18 07/07/18 07/08/18 12:47 20:40 05:30 Sodium 144 Potassium 4.0 Chloride 111 H Carbon Dioxide 27 Anion Gap 6 L BUN 6 L Creatinine 1.0 Creat Clearance w eGFR 52.57 Random Glucose 97 Calcium 7.8 L Phosphorus 2.4 L Magnesium 1.8 Troponin I 0.17 H 0.16 H Albumin 2.9 L Active Medications Current Medications Carbidopa/Levodopa (Sinemet 25/100 -) 1 each PO BID [facility] Last Admin: 07/08/18 09:59 Dose: 1 each Donepezil HCl (Aricept -) 10 mg PO DAILY [facility] Last Admin: 07/08/18 09:59 Dose: 10 mg Heparin Sodium (Porcine) (Heparin -) 5,000 unit SQ BID [facility] Last Admin: 07/08/18 09:58 Dose: 5,000 unit Potassium Chloride/Dextrose/Sod Cl (D5-1/2ns+20 Meq Kcl -) 20 meq in 1,000 mls @ 75 mls/hr IV ASDIR [facility] Levetiracetam (Keppra Injection -) 750 mg IVPB BID [facility] Last Admin: 07/08/18 09:58 Dose: 750 mg ASSESSMENT/PLAN: An 88 year old female with a PMH of CVA, Parkinson's, Alzheimers, HTN, seizure disorder (last one 5 years ago) presented s/p seizure earlier tonight. She is admitted to ICU for seizures, r/o stroke, lactic acidosis. #Neurology -Hx. of CVA -Hx. of seizures- No seizure activity noted during hospital course -Hx. of Parkinson's and Alzheimer's -c/w aspiration precautions -Can switch Keppra IVPB 750mg BID to PO -can increase Keppra to 750mg for a few days per Dr. Hughes -Phenytoin level <2.5 -Head CT: negative for acute pathology, positive for chronic ischemic changes -c/w cinemet and aricept per Dr. Hughes #Cardiovascular -Cardiology consult appreciated -Echo (07/06/18)- EF 60-65% unchanged from previous echo in February 2018: mild , mild TR, trace MR and AR -Given Vanc and Zosyn in ED, switched to Ceftriaxone (07/06/18) per Dr. Benton -Carotid Doppler showed no hemodynamically significant stenosis b/l -F/u Iron studies #Pulmonary -c/w O2 to keep SpO2 >90% -CXR negative for any changes when compared with previous x-ray (07/06/18) -Cultures negative to date. -Speech and Swallow appreciated- started on honey thick dysphagia puree diet. -CXR(07/08/18)- shows increased congestion/infiltration of the right costodiaphragamatic angle; f/u rpt CXR in the AM #FEN -monitor electrolytes -K+: 3.2 (07/07/18)-->4.0 (07/08/18) -Admission Lactate 14.4-->1.2(07/06/18) -potassium repleted -D/C-ed IVF -Torrez removed (07/08/18) #DVT PPx. -SCDs -Heparin restarted #Dispo -Med/Surg Visit type - Emergency Visit Emergency Visit: Yes ED Registration Date: 07/05/18 Care time: The patient presented to the Emergency Department on the above date and was hospitalized for further evaluation of their emergent condition. - New Patient This patient is new to me today: No - Critical Care Critical Care patient: No - Discharge Referral Referred to [facility] Med P.C.: No
[2018-07-08] MEDS: DEXTROSE 5%-0.45% SALINE 980 ML with POTASSIUM CHLORIDE 40 MEQ IVPB SCH (15:20)
--- NOTE | 2018-07-08 15:43 | PN ---
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, Physician History of Present Illness: stable no new issues continues to be non verbal - Current Medication List Current Medications: Active Medications Carbidopa/Levodopa (Sinemet 25/100 -) 1 each PO BID [facility] Donepezil HCl (Aricept -) 10 mg PO DAILY [facility] Heparin Sodium (Porcine) (Heparin -) 5,000 unit SQ BID [facility] Levetiracetam (Keppra Injection -) 750 mg IVPB BID [facility] - Objective Vital Signs: Vital Signs Temperature 98 F 07/08/18 12:00 Pulse Rate 60 07/08/18 14:00 Respiratory Rate 16 07/08/18 14:00 Blood Pressure 154/64 07/08/18 14:00 O2 Sat by Pulse Oximetry (%) 98 07/08/18 06:47 Constitutional: Yes: No Distress, Calm Cardiovascular: Yes: Regular Rate and Rhythm Respiratory: Yes: Regular, CTA Bilaterally Gastrointestinal: Yes: Normal Bowel Sounds, Soft Musculoskeletal: Yes: WNL Extremities: Yes: WNL Neurological: Yes: Alert, Other Psychiatric: Yes: Alert, Other Labs: CBC, BMP 07/07/18 05:45 07/08/18 05:30 INR, PTT INR 1.02 (0.83-1.09) 07/05/18 21:08 Assessment/Plan Problem List - Problems (1) Parkinsons Code(s): G20 - PARKINSON'S DISEASE (2) Alzheimer's dementia Code(s): G30.9 - ALZHEIMER'S DISEASE, UNSPECIFIED; F02.80 - DEMENTIA IN OTH DISEASES CLASSD ELSWHR W/O BEHAVRL DISTURB (3) Lactic acidosis Code(s): E87.2 - ACIDOSIS (4) Seizure disorder Code(s): G40.909 - EPILEPSY, UNSP, NOT INTRACTABLE, WITHOUT STATUS EPILEPTICUS (5) ARF (acute renal failure) Code(s): N17.9 - ACUTE KIDNEY FAILURE, UNSPECIFIED (6) HLD (hyperlipidemia) Code(s): E78.5 - HYPERLIPIDEMIA, UNSPECIFIED (7) HTN (hypertension) Code(s): I10 - ESSENTIAL (PRIMARY) HYPERTENSION patient evaluated and seen plan stable off of ceftriaxone continue monitoring mental status rest as per icu and the team hydration will await for all the cx reports once we have them will decide further abx mgmt cc time 40 min
--- NOTE | 2018-07-08 21:01 | PN ---
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, Physician - Current Medication List Current Medications: Active Medications Carbidopa/Levodopa (Sinemet 25/100 -) 1 each PO BID [facility] Donepezil HCl (Aricept -) 10 mg PO DAILY [facility] Heparin Sodium (Porcine) (Heparin -) 5,000 unit SQ BID [facility] Levetiracetam (Keppra Injection -) 750 mg IVPB BID [facility] - Objective Vital Signs: Vital Signs Temperature 98.4 F 07/08/18 19:00 Pulse Rate 66 07/08/18 17:34 Respiratory Rate 18 07/08/18 19:00 Blood Pressure 138/66 07/08/18 19:00 O2 Sat by Pulse Oximetry (%) 98 07/08/18 06:47 Labs: CBC, BMP 07/07/18 05:45 07/08/18 05:30 INR, PTT INR 1.02 (0.83-1.09) 07/05/18 21:08 Problem List - Problems (1) Seizure disorder Code(s): G40.909 - EPILEPSY, UNSP, NOT INTRACTABLE, WITHOUT STATUS EPILEPTICUS (2) Lactic acidosis Code(s): E87.2 - ACIDOSIS (3) Parkinsons Code(s): G20 - PARKINSON'S DISEASE (4) HTN (hypertension) Code(s): I10 - ESSENTIAL (PRIMARY) HYPERTENSION (5) HLD (hyperlipidemia) Code(s): E78.5 - HYPERLIPIDEMIA, UNSPECIFIED (6) Alzheimer's dementia Code(s): G30.9 - ALZHEIMER'S DISEASE, UNSPECIFIED; F02.80 - DEMENTIA IN OTH DISEASES CLASSD ELSWHR W/O BEHAVRL DISTURB
[2018-07-08] MEDS: HEPARIN NA (PORCINE) 5,000 UNITS/ML 1ML VIAL SQ SCH (22:07)
[2018-07-08] MEDS: levETIRAcetam 250 MG TABLET (FP) PO SCH (22:10)
[2018-07-09] MEDS: ACETAMINOPHEN 325 MG TABLET (FP) PO PRN (02:16)
[2018-07-09 07:26] LABS: BASO % 0.7 % (0-2.0); EOS % 2.5 % (0-4.5); HEMATOCRIT 27.8 % (32.4-45.2); HEMOGLOBIN 9.1 GM/dL (10.7-15.3); LYMPH % 14.8 % (8-40); MCH 29.4 pg (25.7-33.7); MCHC 32.8 g/dl (32.0-36.0); MEAN CELL VOLUME 89.8 fl (80-96); MEAN PLT VOLUME 9.1 fl (7.5-11.1); MONO % 11.8 % (3.8-10.2); NEUT % 70.2 % (42.8-82.8); PLATELET COUNT 168 K/MM3 (134-434); RDW 14.1 % (11.6-15.6); WHITE BLOOD COUNT 7.6 K/mm3 (4.0-10.0)
[2018-07-09 08:07] LABS: ANION GAP 6 MMOL/L (8-16); BLOOD UREA NITROGEN 8 mg/dL (7-18); CALCIUM 8.1 mg/dL (8.5-10.1); CHLORIDE 111 mmol/L (98-107); CO2 27 mmol/L (21-32); GLUCOSE,RANDOM 83 mg/dL (74-106); POTASSIUM 4.1 mmol/L (3.5-5.1); SODIUM 144 mmol/L (136-145)
[2018-07-09 08:11] LABS: ALK PHOS 54 U/L (45-117); BILIRUBIN,TOTAL 0.4 mg/dL (0.2-1.0); CREATININE 1.1 mg/dL (0.55-1.02); SGOT/AST 60 U/L (15-37); SGPT/ALT 6 U/L (12-78)
--- NOTE | 2018-07-09 08:47 | PN ---
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 (short form) - Note 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: HPI 88 year old female history of Parkinson disease, Dementia, epilepsy ( last seizure 5 years ago). She came with a tonic clonic seizure, no tongue bite. Patient had ct head it was unremarkable. She is on aricept, sinemet and keppra 500 mg po bid . Patient is on abx for septicemia SUBJECTIVE: She remains confused, spiked fever last night .and no more seizure, seems to be as baseline. NEUROLOGICAL EXAMINATION: Spontaneous eye opening is present, moans and not able to follow command she is wincing to pain and withdraw to painful stimuli no neck stiffness pupils is small and reactive moving all extremity EXAM is unchanged ct head is normal Assessment- Breakthrough seizure ? induced by septicemia 2. 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
--- NOTE | 2018-07-09 11:16 | PN ---
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 Awake. Verbal at times. Overtly tolerating diet, but with rare brief cough. Suggest mbs-r/o silent aspiration
--- NOTE | 2018-07-09 12:18 | PN ---
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, Physician History of Present Illness: patient spiked once patient has been stable patient going for modified ba swallow more reactive - Current Medication List Current Medications: Active Medications Acetaminophen (Tylenol -) 650 mg PO Q6H PRN PRN Reason: FEVER/PAIN LEVEL 1-5 Last Admin: 07/09/18 02:16 Dose: 650 mg Carbidopa/Levodopa (Sinemet 25/100 -) 1 each PO BID [facility] Last Admin: 07/08/18 22:07 Dose: 1 each Donepezil HCl (Aricept -) 10 mg PO DAILY [facility] Heparin Sodium (Porcine) (Heparin -) 5,000 unit SQ BID [facility] Last Admin: 07/08/18 22:07 Dose: 5,000 unit Levetiracetam (Keppra -) 750 mg PO BID [facility] Last Admin: 07/08/18 22:10 Dose: Not Given - Objective Vital Signs: Vital Signs Temperature 99.3 F 07/09/18 06:00 Pulse Rate 73 07/09/18 06:00 Respiratory Rate 18 07/09/18 06:00 Blood Pressure 155/62 07/09/18 06:00 O2 Sat by Pulse Oximetry (%) 94 L 07/08/18 21:00 Constitutional: Yes: No Distress, Calm Cardiovascular: Yes: Regular Rate and Rhythm Respiratory: Yes: Regular, CTA Bilaterally Gastrointestinal: Yes: Normal Bowel Sounds, Soft Musculoskeletal: Yes: WNL Extremities: Yes: WNL Neurological: Yes: Alert, Other Psychiatric: Yes: Other Labs: CBC, BMP 07/09/18 06:10 07/09/18 06:10 INR, PTT INR 1.02 (0.83-1.09) 07/05/18 21:08 Assessment/Plan Problem List - Problems (1) Parkinsons Code(s): G20 - PARKINSON'S DISEASE (2) Alzheimer's dementia Code(s): G30.9 - ALZHEIMER'S DISEASE, UNSPECIFIED; F02.80 - DEMENTIA IN OTH DISEASES CLASSD ELSWHR W/O BEHAVRL DISTURB (3) Lactic acidosis Code(s): E87.2 - ACIDOSIS (4) Seizure disorder Code(s): G40.909 - EPILEPSY, UNSP, NOT INTRACTABLE, WITHOUT STATUS EPILEPTICUS (5) ARF (acute renal failure) Code(s): N17.9 - ACUTE KIDNEY FAILURE, UNSPECIFIED (6) HLD (hyperlipidemia) Code(s): E78.5 - HYPERLIPIDEMIA, UNSPECIFIED (7) HTN (hypertension) Code(s): I10 - ESSENTIAL (PRIMARY) HYPERTENSION blood cx were send plan will await cx reports no abx continue to monitor rest as per the team
[2018-07-09] MEDS ORDERED: PT OWN MED DRAWER 7, Y5N ONE (12:51)
[2018-07-09] MEDS: HEPARIN NA (PORCINE) 5,000 UNITS/ML 1ML VIAL SQ SCH ×2 (12:54→21:03)
[2018-07-09] MEDS: DONEPEZIL HCL 10 MG TABLET (FP) PO SCH (12:54)
[2018-07-09] MEDS: levETIRAcetam 250 MG TABLET (FP) PO SCH ×2 (12:55→21:02)
[2018-07-09] MEDS: CARBIDOPA/LEVODOPA 25/100 TABLET (FP) PO SCH ×2 (12:56→21:02)
--- NOTE | 2018-07-09 21:51 | PN ---
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, Physician - Current Medication List Current Medications: Active Medications Acetaminophen (Tylenol -) 650 mg PO Q6H PRN PRN Reason: FEVER/PAIN LEVEL 1-5 Last Admin: 07/09/18 02:16 Dose: 650 mg Carbidopa/Levodopa (Sinemet 25/100 -) [address] [facility] Last Admin: 07/09/18 21:02 Dose: 1 each Donepezil HCl (Aricept -) [address] [facility] Last Admin: 07/09/18 12:54 Dose: 10 mg Heparin Sodium (Porcine) (Heparin -) 5,[address] [facility] Last Admin: 07/09/18 21:03 Dose: 5,000 unit Levetiracetam (Keppra -) [address] [facility] Last Admin: 07/09/18 21:02 Dose: 750 mg - Objective Vital Signs: Vital Signs Temperature 98.2 F 07/09/18 18:30 Pulse Rate 72 07/09/18 18:30 Respiratory Rate 22 07/09/18 18:30 Blood Pressure 168/80 07/09/18 18:30 O2 Sat by Pulse Oximetry (%) 92 L 07/09/18 09:00 Labs: CBC, BMP 07/09/18 06:10 07/09/18 06:10 INR, PTT INR 1.02 (0.83-1.09) 07/05/18 21:08 Problem List - Problems (1) Seizure disorder Code(s): G40.909 - EPILEPSY, UNSP, NOT INTRACTABLE, WITHOUT STATUS EPILEPTICUS (2) Lactic acidosis Code(s): E87.2 - ACIDOSIS (3) Parkinsons Code(s): G20 - PARKINSON'S DISEASE (4) HTN (hypertension) Code(s): I10 - ESSENTIAL (PRIMARY) HYPERTENSION (5) HLD (hyperlipidemia) Code(s): E78.5 - HYPERLIPIDEMIA, UNSPECIFIED (6) Alzheimer's dementia Code(s): G30.9 - ALZHEIMER'S DISEASE, UNSPECIFIED; F02.80 - DEMENTIA IN OTH DISEASES CLASSD ELSWHR W/O BEHAVRL DISTURB
[2018-07-10] MEDS: amLODIPine BESYLATE 2.5 MG TABLET (FP) PO SCH ×2 (02:36→09:16)
[2018-07-10 07:23] LABS: BASO % 0.9 % (0-2.0); EOS % 3.7 % (0-4.5); HEMATOCRIT 27.5 % (32.4-45.2); HEMOGLOBIN 9.1 GM/dL (10.7-15.3); LYMPH % 13.3 % (8-40); MCH 29.5 pg (25.7-33.7); MCHC 33.2 g/dl (32.0-36.0); MEAN CELL VOLUME 88.9 fl (80-96); MEAN PLT VOLUME 8.7 fl (7.5-11.1); MONO % 11.4 % (3.8-10.2); NEUT % 70.7 % (42.8-82.8); PLATELET COUNT 189 K/MM3 (134-434); RBC 3.09 M/mm3 (3.60-5.2); RDW 13.9 % (11.6-15.6); WHITE BLOOD COUNT 7.1 K/mm3 (4.0-10.0)
[2018-07-10 07:44] LABS: CHLORIDE 110 mmol/L (98-107); POTASSIUM 3.9 mmol/L (3.5-5.1); SODIUM 146 mmol/L (136-145)
[2018-07-10 08:04] LABS: ALBUMIN 2.8 g/dl (3.4-5.0); ALK PHOS 54 U/L (45-117); ANION GAP 11 MMOL/L (8-16); BILIRUBIN,TOTAL 0.5 mg/dL (0.2-1.0); BLOOD UREA NITROGEN 9 mg/dL (7-18); CALCIUM 8.3 mg/dL (8.5-10.1); CO2 25 mmol/L (21-32); CREATININE 0.9 mg/dL (0.55-1.02); GLUCOSE,RANDOM 80 mg/dL (74-106); SGOT/AST 55 U/L (15-37); SGPT/ALT 9 U/L (12-78); TOT PROT 5.9 g/dl (6.4-8.2)
[2018-07-10] MEDS: levETIRAcetam 250 MG TABLET (FP) PO SCH ×2 (09:16→21:33)
[2018-07-10] MEDS: CARBIDOPA/LEVODOPA 25/100 TABLET (FP) PO SCH ×2 (09:16→21:33)
[2018-07-10] MEDS: HEPARIN NA (PORCINE) 5,000 UNITS/ML 1ML VIAL SQ SCH ×2 (09:16→21:33)
[2018-07-10] MEDS: DONEPEZIL HCL 10 MG TABLET (FP) PO SCH (09:17)
--- NOTE | 2018-07-10 11:02 | PN ---
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 Risk of aspiration due to oral holding with delayed swapna -pharyngeal transfer. Swallow itself is quite brisk. Remind pt to swallow with each bite/sip and palpate larynx for reflex before next presentation. Continue chopped diet nectar/ thick liquid for now. To upgrade as pt improves.
--- NOTE | 2018-07-10 12:00 | PN ---
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, Physician History of Present Illness: afebrile no other issues - Current Medication List Current Medications: Active Medications Acetaminophen (Tylenol -) 650 mg PO Q6H PRN PRN Reason: FEVER/PAIN LEVEL 1-5 Last Admin: 07/09/18 02:16 Dose: 650 mg Amlodipine Besylate (Norvasc -) 2.5 mg PO DAILY [facility] Last Admin: 07/10/18 09:16 Dose: 2.5 mg Carbidopa/Levodopa (Sinemet 25/100 -) 1 each PO BID [facility] Last Admin: 07/10/18 09:16 Dose: 1 each Donepezil HCl (Aricept -) 10 mg PO DAILY [facility] Last Admin: 07/10/18 09:17 Dose: 10 mg Heparin Sodium (Porcine) (Heparin -) 5,000 unit SQ BID [facility] Last Admin: 07/10/18 09:16 Dose: 5,000 unit Levetiracetam (Keppra -) 750 mg PO BID [facility] Last Admin: 07/10/18 09:16 Dose: 750 mg - Objective Vital Signs: Vital Signs Temperature 98.8 F 07/10/18 10:00 Pulse Rate 68 07/10/18 10:00 Respiratory Rate 22 07/10/18 10:00 Blood Pressure 163/81 07/10/18 10:00 O2 Sat by Pulse Oximetry (%) 96 07/09/18 21:00 Constitutional: Yes: No Distress, Calm Cardiovascular: Yes: Regular Rate and Rhythm Respiratory: Yes: Regular, CTA Bilaterally Gastrointestinal: Yes: Normal Bowel Sounds, Soft Neurological: Yes: Alert, Other Psychiatric: Yes: Other Labs: CBC, BMP 07/10/18 06:00 07/10/18 06:00 INR, PTT INR 1.02 (0.83-1.09) 07/05/18 21:08 Assessment/Plan Problem List - Problems (1) Parkinsons Code(s): G20 - PARKINSON'S DISEASE (2) Alzheimer's dementia Code(s): G30.9 - ALZHEIMER'S DISEASE, UNSPECIFIED; F02.80 - DEMENTIA IN OTH DISEASES CLASSD ELSWHR W/O BEHAVRL DISTURB (3) Lactic acidosis Code(s): E87.2 - ACIDOSIS (4) Seizure disorder Code(s): G40.909 - EPILEPSY, UNSP, NOT INTRACTABLE, WITHOUT STATUS EPILEPTICUS (5) ARF (acute renal failure) Code(s): N17.9 - ACUTE KIDNEY FAILURE, UNSPECIFIED (6) HLD (hyperlipidemia) Code(s): E78.5 - HYPERLIPIDEMIA, UNSPECIFIED (7) HTN (hypertension) Code(s): I10 - ESSENTIAL (PRIMARY) HYPERTENSION blood cx were send plan continue to monitor 'rest as per the team patient stable physio
[2018-07-10 12:19] VITALS: BMI 21.2
[2018-07-10] MEDS ORDERED: amLODIPine BESYLATE 2.5 MG TABLET (FP) PO ONE (18:00)
--- NOTE | 2018-07-10 18:40 | PN ---
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, Physician - Current Medication List Current Medications: Active Medications Acetaminophen (Tylenol -) 650 mg PO Q6H PRN PRN Reason: FEVER/PAIN LEVEL 1-5 Last Admin: 07/09/18 02:16 Dose: 650 mg Amlodipine Besylate (Norvasc -) 2.5 mg PO DAILY [facility] Last Admin: 07/10/18 09:16 Dose: 2.5 mg Carbidopa/Levodopa (Sinemet 25/100 -) 1 each PO BID [facility] Last Admin: 07/10/18 09:16 Dose: 1 each Donepezil HCl (Aricept -) 10 mg PO DAILY [facility] Last Admin: 07/10/18 09:17 Dose: 10 mg Heparin Sodium (Porcine) (Heparin -) 5,000 unit SQ BID [facility] Last Admin: 07/10/18 09:16 Dose: 5,000 unit Levetiracetam (Keppra -) 750 mg PO BID [facility] Last Admin: 07/10/18 09:16 Dose: 750 mg - Objective Vital Signs: Vital Signs Temperature 99.5 F 07/10/18 14:02 Pulse Rate 83 07/10/18 14:02 Respiratory Rate 20 07/10/18 14:02 Blood Pressure 160/81 07/10/18 14:02 O2 Sat by Pulse Oximetry (%) 98 07/10/18 09:00 Labs: CBC, BMP 07/10/18 06:00 07/10/18 06:00 INR, PTT INR 1.02 (0.83-1.09) 07/05/18 21:08 Problem List - Problems (1) Seizure disorder Code(s): G40.909 - EPILEPSY, UNSP, NOT INTRACTABLE, WITHOUT STATUS EPILEPTICUS (2) Lactic acidosis Code(s): E87.2 - ACIDOSIS (3) Parkinsons Code(s): G20 - PARKINSON'S DISEASE (4) HTN (hypertension) Code(s): I10 - ESSENTIAL (PRIMARY) HYPERTENSION (5) HLD (hyperlipidemia) Code(s): E78.5 - HYPERLIPIDEMIA, UNSPECIFIED (6) Alzheimer's dementia Code(s): G30.9 - ALZHEIMER'S DISEASE, UNSPECIFIED; F02.80 - DEMENTIA IN OTH DISEASES CLASSD ELSWHR W/O BEHAVRL DISTURB
[2018-07-11] MEDS: HEPARIN NA (PORCINE) 5,000 UNITS/ML 1ML VIAL SQ SCH (10:19)
[2018-07-11] MEDS: DONEPEZIL HCL 10 MG TABLET (FP) PO SCH (10:19)
[2018-07-11] MEDS: levETIRAcetam 250 MG TABLET (FP) PO SCH (10:19)
[2018-07-11] MEDS: amLODIPine BESYLATE 2.5 MG TABLET (FP) PO SCH (10:19)
[2018-07-11] MEDS: CARBIDOPA/LEVODOPA 25/100 TABLET (FP) PO SCH (10:20)
--- NOTE | 2018-07-11 11:16 | PN ---
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, Physician History of Present Illness: Pt seen and examined. Events noted. Pt is arousable. No acute distress, cough. Remains afebrile. - Current Medication List Current Medications: Active Medications Acetaminophen (Tylenol -) 650 mg PO Q6H PRN PRN Reason: FEVER/PAIN LEVEL 1-5 Last Admin: 07/09/18 02:16 Dose: 650 mg Amlodipine Besylate (Norvasc -) 2.5 mg PO DAILY [facility] Last Admin: 07/11/18 10:19 Dose: 2.5 mg Carbidopa/Levodopa (Sinemet 25/100 -) 1 each PO BID [facility] Last Admin: 07/11/18 10:20 Dose: 1 each Donepezil HCl (Aricept -) 10 mg PO DAILY [facility] Last Admin: 07/11/18 10:19 Dose: 10 mg Heparin Sodium (Porcine) (Heparin -) 5,000 unit SQ BID [facility] Last Admin: 07/11/18 10:19 Dose: 5,000 unit Levetiracetam (Keppra -) 750 mg PO BID [facility] Last Admin: 07/11/18 10:19 Dose: 750 mg - Objective Vital Signs: Vital Signs Temperature 97.7 F 07/11/18 09:05 Pulse Rate 69 07/11/18 09:05 Respiratory Rate 24 07/11/18 09:05 Blood Pressure 151/76 07/11/18 09:05 O2 Sat by Pulse Oximetry (%) 96 07/10/18 21:00 Constitutional: Yes: No Distress, Calm Neck: Yes: Supple Cardiovascular: Yes: Regular Rate and Rhythm Respiratory: Yes: Regular Gastrointestinal: Yes: Normal Bowel Sounds, Soft Extremities: Yes: WNL Neurological: Yes: Alert, Tremors (Lt arm) Labs: CBC, BMP 07/10/18 06:00 07/10/18 06:00 INR, PTT INR 1.02 (0.83-1.09) 07/05/18 21:08 Microbiology 07/09/18 02:15 Blood - Peripheral Venous Blood Culture - Preliminary NO GROWTH OBTAINED AFTER 48 HOURS, INCUBATION TO CONTINUE FOR 3 DAYS. 07/09/18 01:45 Blood - Peripheral Venous Blood Culture - Preliminary NO GROWTH OBTAINED AFTER 48 HOURS, INCUBATION TO CONTINUE FOR 3 DAYS. 07/05/18 21:08 Blood - Peripheral Venous Blood Culture - Final NO GROWTH AFTER 5 DAYS INCUBATION 07/05/18 21:08 Blood - Peripheral Venous Blood Culture - Final NO GROWTH AFTER 5 DAYS INCUBATION 07/05/18 21:08 Urine - Urine - Catheterized Urine Culture - Final NO GROWTH OBTAINED - ....Imaging Chest X-ray: Report Reviewed Problem List - Problems (1) Alzheimer's dementia Code(s): G30.9 - ALZHEIMER'S DISEASE, UNSPECIFIED; F02.80 - DEMENTIA IN OTH DISEASES CLASSD ELSWHR W/O BEHAVRL DISTURB (2) Lactic acidosis Code(s): E87.2 - ACIDOSIS (3) Parkinsons Code(s): G20 - PARKINSON'S DISEASE (4) Seizure disorder Code(s): G40.909 - EPILEPSY, UNSP, NOT INTRACTABLE, WITHOUT STATUS EPILEPTICUS (5) ARF (acute renal failure) Code(s): N17.9 - ACUTE KIDNEY FAILURE, UNSPECIFIED (6) HLD (hyperlipidemia) Code(s): E78.5 - HYPERLIPIDEMIA, UNSPECIFIED (7) HTN (hypertension) Code(s): I10 - ESSENTIAL (PRIMARY) HYPERTENSION Assessment/Plan 88 y.o. female with PMH of Alzheimers dementia, Parkinsons, seizure d.o., HLD, HTN presenting with seizure episode/altered mental status/lactic acidosis -- routine cultures negative -- pt afebrile, without leukocytosis -- monitor off antibiotics -- neurology following
--- NOTE | 2018-07-11 12:43 | PN ---
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 (short form) - Note 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: PULMONARY Pt nonverbal. Appears comfortable. Vital Signs Period Temp Pulse Resp BP Sys/[place] Pulse Ox Last 24 Hr 97.7 F-99.6 F 69-103 20-24 143-164/74-82 96 Gen: NAD at rest Heart: RRR Lung: decreased breath sounds at the bases Abd: soft, nontender Ext: on edema CBC, BMP 07/10/18 06:00 07/10/18 06:00 Active Medications Acetaminophen (Tylenol -) 650 mg PO Q6H PRN PRN Reason: FEVER/PAIN LEVEL 1-5 Last Admin: 07/09/18 02:16 Dose: 650 mg Amlodipine Besylate (Norvasc -) 2.5 mg PO DAILY [facility] Last Admin: 07/11/18 10:19 Dose: 2.5 mg Carbidopa/Levodopa (Sinemet 25/100 -) 1 each PO BID [facility] Last Admin: 07/11/18 10:20 Dose: 1 each Donepezil HCl (Aricept -) 10 mg PO DAILY [facility] Last Admin: 07/11/18 10:19 Dose: 10 mg Heparin Sodium (Porcine) (Heparin -) 5,000 unit SQ BID [facility] Last Admin: 07/11/18 10:19 Dose: 5,000 unit Levetiracetam (Keppra -) 750 mg PO BID [facility] Last Admin: 07/11/18 10:19 Dose: 750 mg A/P Seizure Episode Known Seizure Disorder Lactic Acidosis resolved HTN h/o CVA Alzheimer's dementia Parkinsons r/o UTI - continue antiepileptics - aspiration precautions - O2 to keep SpO2 >90% - DVT prophylaxis
--- NOTE | 2018-07-11 22:55 | PN ---
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, Physician - Current Medication List Current Medications: Active Medications Acetaminophen (Tylenol -) 650 mg PO Q6H PRN PRN Reason: FEVER/PAIN LEVEL 1-5 Last Admin: 07/09/18 02:16 Dose: 650 mg Amlodipine Besylate (Norvasc -) 2.5 mg PO DAILY [facility] Last Admin: 07/11/18 10:19 Dose: 2.5 mg Carbidopa/Levodopa (Sinemet 25/100 -) 1 each PO BID [facility] Last Admin: 07/11/18 10:20 Dose: 1 each Donepezil HCl (Aricept -) 10 mg PO DAILY [facility] Last Admin: 07/11/18 10:19 Dose: 10 mg Heparin Sodium (Porcine) (Heparin -) 5,000 unit SQ BID [facility] Last Admin: 07/11/18 10:19 Dose: 5,000 unit Levetiracetam (Keppra -) 750 mg PO BID [facility] Last Admin: 07/11/18 10:19 Dose: 750 mg - Objective Vital Signs: Vital Signs Temperature 99.0 F 07/11/18 18:30 Pulse Rate 72 07/11/18 18:30 Respiratory Rate 16 07/11/18 18:30 Blood Pressure 138/62 07/11/18 18:30 O2 Sat by Pulse Oximetry (%) 89 L 07/11/18 11:00 Labs: CBC, BMP 07/10/18 06:00 07/10/18 06:00 INR, PTT INR 1.02 (0.83-1.09) 07/05/18 21:08 Problem List - Problems (1) Seizure disorder Code(s): G40.909 - EPILEPSY, UNSP, NOT INTRACTABLE, WITHOUT STATUS EPILEPTICUS (2) Lactic acidosis Code(s): E87.2 - ACIDOSIS (3) Parkinsons Code(s): G20 - PARKINSON'S DISEASE (4) HTN (hypertension) Code(s): I10 - ESSENTIAL (PRIMARY) HYPERTENSION (5) HLD (hyperlipidemia) Code(s): E78.5 - HYPERLIPIDEMIA, UNSPECIFIED (6) Alzheimer's dementia Code(s): G30.9 - ALZHEIMER'S DISEASE, UNSPECIFIED; F02.80 - DEMENTIA IN OTH DISEASES CLASSD ELSWHR W/O BEHAVRL DISTURB
[2018-07-12] MEDS: CARBIDOPA/LEVODOPA 25/100 TABLET (FP) PO SCH ×3 (00:17→22:53)
[2018-07-12] MEDS: ACETAMINOPHEN 325 MG TABLET (FP) PO PRN ×2 (00:17→22:49)
[2018-07-12] MEDS: HEPARIN NA (PORCINE) 5,000 UNITS/ML 1ML VIAL SQ SCH ×3 (00:18→22:53)
[2018-07-12] MEDS: levETIRAcetam 250 MG TABLET (FP) PO SCH ×3 (00:18→22:52)
[2018-07-12] MEDS: DONEPEZIL HCL 10 MG TABLET (FP) PO SCH (09:13)
[2018-07-12] MEDS: amLODIPine BESYLATE 2.5 MG TABLET (FP) PO SCH (09:14)
[2018-07-12] MEDS ORDERED: FUROSEMIDE 40 MG/4 ML INJECTABLE VIAL IVPUSH ONE (14:31)
--- NOTE | 2018-07-12 14:31 | PN ---
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 (short form) - Note 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: PULMONARY Pt nonverbal. Appears comfortable at rest. Per nursing pt gets tachypneic with positioning and cleaning. Vital Signs Period Temp Pulse Resp BP Sys/[place] Pulse Ox Last 24 Hr 98.3 F-100.0 F 61-78 16-24 135-158/56-73 89 Gen: NAD at rest Heart: RRR Lung: decreased breath sounds at the bases Abd: soft, nontender Ext: on edema CBC, BMP 07/10/18 06:00 07/10/18 06:00 Active Medications Acetaminophen (Tylenol -) 650 mg PO Q6H PRN PRN Reason: FEVER/PAIN LEVEL 1-5 Last Admin: 07/12/18 00:17 Dose: 650 mg Amlodipine Besylate (Norvasc -) 2.5 mg PO DAILY [facility] Last Admin: 07/12/18 09:14 Dose: 2.5 mg Carbidopa/Levodopa (Sinemet 25/100 -) 1 each PO BID [facility] Last Admin: 07/12/18 09:14 Dose: 1 each Donepezil HCl (Aricept -) 10 mg PO DAILY [facility] Last Admin: 07/12/18 09:13 Dose: 10 mg Heparin Sodium (Porcine) (Heparin -) 5,000 unit SQ BID [facility] Last Admin: 07/12/18 09:14 Dose: 5,000 unit Levetiracetam (Keppra -) 750 mg PO BID [facility] Last Admin: 07/12/18 09:13 Dose: 750 mg A/P Seizure Episode Known Seizure Disorder Lactic Acidosis resolved HTN h/o CVA Alzheimer's dementia Parkinsons r/o UTI - will give dose of lasix - repeat CXR in AM - continue antiepileptics - aspiration precautions - O2 to keep SpO2 >90% - DVT prophylaxis
--- NOTE | 2018-07-12 16:36 | PN ---
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, Physician History of Present Illness: Pt is alert, without acute distress. Tmax 100F - Current Medication List Current Medications: Active Medications Acetaminophen (Tylenol -) 650 mg PO Q6H PRN PRN Reason: FEVER/PAIN LEVEL 1-5 Last Admin: 07/12/18 00:17 Dose: 650 mg Amlodipine Besylate (Norvasc -) 2.5 mg PO DAILY [facility] Last Admin: 07/12/18 09:14 Dose: 2.5 mg Carbidopa/Levodopa (Sinemet 25/100 -) 1 each PO BID [facility] Last Admin: 07/12/18 09:14 Dose: 1 each Donepezil HCl (Aricept -) 10 mg PO DAILY [facility] Last Admin: 07/12/18 09:13 Dose: 10 mg Heparin Sodium (Porcine) (Heparin -) 5,000 unit SQ BID [facility] Last Admin: 07/12/18 09:14 Dose: 5,000 unit Levetiracetam (Keppra -) 750 mg PO BID [facility] Last Admin: 07/12/18 09:13 Dose: 750 mg - Objective Vital Signs: Vital Signs Temperature 98.9 F 07/12/18 15:28 Pulse Rate 62 07/12/18 15:28 Respiratory Rate 24 07/12/18 15:28 Blood Pressure 144/59 07/12/18 15:28 O2 Sat by Pulse Oximetry (%) 89 L 07/11/18 21:00 Constitutional: Yes: No Distress, Calm Cardiovascular: Yes: Regular Rate and Rhythm Respiratory: Yes: Other (poor inspiratory effort) Gastrointestinal: Yes: Normal Bowel Sounds, Soft Genitourinary: Yes: Incontinence Neurological: Yes: Alert Labs: CBC, BMP 07/10/18 06:00 07/10/18 06:00 INR, PTT INR 1.02 (0.83-1.09) 07/05/18 21:08 Microbiology 07/09/18 02:15 Blood - Peripheral Venous Blood Culture - Preliminary NO GROWTH OBTAINED AFTER 72 HOURS, INCUBATION TO CONTINUE FOR 2 DAYS. 07/09/18 01:45 Blood - Peripheral Venous Blood Culture - Preliminary NO GROWTH OBTAINED AFTER 72 HOURS, INCUBATION TO CONTINUE FOR 2 DAYS. 07/05/18 21:08 Blood - Peripheral Venous Blood Culture - Final NO GROWTH AFTER 5 DAYS INCUBATION 07/05/18 21:08 Blood - Peripheral Venous Blood Culture - Final NO GROWTH AFTER 5 DAYS INCUBATION 07/05/18 21:08 Urine - Urine - Catheterized Urine Culture - Final NO GROWTH OBTAINED Problem List - Problems (1) Alzheimer's dementia Code(s): G30.9 - ALZHEIMER'S DISEASE, UNSPECIFIED; F02.80 - DEMENTIA IN OTH DISEASES CLASSD ELSWHR W/O BEHAVRL DISTURB (2) Lactic acidosis Code(s): E87.2 - ACIDOSIS (3) Parkinsons Code(s): G20 - PARKINSON'S DISEASE (4) Seizure disorder Code(s): G40.909 - EPILEPSY, UNSP, NOT INTRACTABLE, WITHOUT STATUS EPILEPTICUS (5) ARF (acute renal failure) Code(s): N17.9 - ACUTE KIDNEY FAILURE, UNSPECIFIED (6) HLD (hyperlipidemia) Code(s): E78.5 - HYPERLIPIDEMIA, UNSPECIFIED (7) HTN (hypertension) Code(s): I10 - ESSENTIAL (PRIMARY) HYPERTENSION Assessment/Plan 88 y.o. female with PMH of Alzheimers dementia, Parkinsons, seizure d.o., HLD, HTN presenting with seizure episode/altered mental status/lactic acidosis - pt with mild temperature elevation -- repeat cbc, cont. monitor vitals -- if pt with fevers repeat blood cultures/chest xray -- monitor off antibiotics for now -- will follow up -- neurology following
--- NOTE | 2018-07-12 20:52 | PN ---
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, Physician - Current Medication List Current Medications: Active Medications Acetaminophen (Tylenol -) 650 mg PO Q6H PRN PRN Reason: FEVER/PAIN LEVEL 1-5 Last Admin: 07/12/18 00:17 Dose: 650 mg Amlodipine Besylate (Norvasc -) 2.5 mg PO DAILY [facility] Last Admin: 07/12/18 09:14 Dose: 2.5 mg Carbidopa/Levodopa (Sinemet 25/100 -) 1 each PO BID [facility] Last Admin: 07/12/18 09:14 Dose: 1 each Donepezil HCl (Aricept -) 10 mg PO DAILY [facility] Last Admin: 07/12/18 09:13 Dose: 10 mg Heparin Sodium (Porcine) (Heparin -) 5,000 unit SQ BID [facility] Last Admin: 07/12/18 09:14 Dose: 5,000 unit Levetiracetam (Keppra -) 750 mg PO BID [facility] Last Admin: 07/12/18 09:13 Dose: 750 mg - Objective Vital Signs: Vital Signs Temperature 98.2 F 07/12/18 18:30 Pulse Rate 68 07/12/18 18:30 Respiratory Rate 24 07/12/18 18:30 Blood Pressure 145/55 07/12/18 18:30 O2 Sat by Pulse Oximetry (%) 89 L 07/12/18 10:00 Labs: CBC, BMP 07/10/18 06:00 07/10/18 06:00 INR, PTT INR 1.02 (0.83-1.09) 07/05/18 21:08 Problem List - Problems (1) Seizure disorder Code(s): G40.909 - EPILEPSY, UNSP, NOT INTRACTABLE, WITHOUT STATUS EPILEPTICUS (2) Lactic acidosis Code(s): E87.2 - ACIDOSIS (3) Parkinsons Code(s): G20 - PARKINSON'S DISEASE (4) HTN (hypertension) Code(s): I10 - ESSENTIAL (PRIMARY) HYPERTENSION (5) HLD (hyperlipidemia) Code(s): E78.5 - HYPERLIPIDEMIA, UNSPECIFIED (6) Alzheimer's dementia Code(s): G30.9 - ALZHEIMER'S DISEASE, UNSPECIFIED; F02.80 - DEMENTIA IN OTH DISEASES CLASSD ELSWHR W/O BEHAVRL DISTURB
[2018-07-13 07:40] LABS: BASO % 0.7 % (0-2.0); EOS % 5.6 % (0-4.5); HEMATOCRIT 30.4 % (32.4-45.2); HEMOGLOBIN 9.9 GM/dL (10.7-15.3); LYMPH % 27.4 % (8-40); MCH 29.1 pg (25.7-33.7); MCHC 32.5 g/dl (32.0-36.0); MEAN CELL VOLUME 89.8 fl (80-96); MEAN PLT VOLUME 8.6 fl (7.5-11.1); MONO % 12.5 % (3.8-10.2); NEUT % 53.8 % (42.8-82.8); PLATELET COUNT 238 K/MM3 (134-434); RBC 3.38 M/mm3 (3.60-5.2); WHITE BLOOD COUNT 6.3 K/mm3 (4.0-10.0)
[2018-07-13] MEDS: levETIRAcetam 250 MG TABLET (FP) PO SCH ×2 (10:18→21:49)
[2018-07-13] MEDS: HEPARIN NA (PORCINE) 5,000 UNITS/ML 1ML VIAL SQ SCH ×2 (10:18→21:50)
[2018-07-13] MEDS: CARBIDOPA/LEVODOPA 25/100 TABLET (FP) PO SCH ×2 (10:18→21:49)
[2018-07-13] MEDS: amLODIPine BESYLATE 2.5 MG TABLET (FP) PO SCH (10:18)
[2018-07-13] MEDS: DONEPEZIL HCL 10 MG TABLET (FP) PO SCH (10:19)
--- NOTE | 2018-07-13 11:32 | PN ---
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, Physician History of Present Illness: Pt appears alert, comfortable. Was given a dose of lasix. Afebrile, without respiratory distress. - Current Medication List Current Medications: Active Medications Acetaminophen (Tylenol -) 650 mg PO Q6H PRN PRN Reason: FEVER/PAIN LEVEL 1-5 Last Admin: 07/12/18 22:49 Dose: 650 mg Amlodipine Besylate (Norvasc -) 2.5 mg PO DAILY [facility] Last Admin: 07/13/18 10:18 Dose: 2.5 mg Carbidopa/Levodopa (Sinemet 25/100 -) 1 each PO BID [facility] Last Admin: 07/13/18 10:18 Dose: 1 each Donepezil HCl (Aricept -) 10 mg PO DAILY [facility] Last Admin: 07/13/18 10:19 Dose: 10 mg Heparin Sodium (Porcine) (Heparin -) 5,000 unit SQ BID [facility] Last Admin: 07/13/18 10:18 Dose: 5,000 unit Levetiracetam (Keppra -) 750 mg PO BID [facility] Last Admin: 07/13/18 10:18 Dose: 750 mg - Objective Vital Signs: Vital Signs Temperature 98.6 F 07/13/18 10:00 Pulse Rate 60 07/13/18 10:00 Respiratory Rate 18 07/13/18 10:00 Blood Pressure 150/73 07/13/18 10:00 O2 Sat by Pulse Oximetry (%) 89 L 07/12/18 21:00 Constitutional: Yes: No Distress, Calm Cardiovascular: Yes: Regular Rate and Rhythm Respiratory: Yes: Diminished (bases) Gastrointestinal: Yes: Normal Bowel Sounds, Soft Neurological: Yes: Alert Labs: CBC, BMP 07/13/18 06:30 07/10/18 06:00 INR, PTT INR 1.02 (0.83-1.09) 07/05/18 21:08 Problem List - Problems (1) Alzheimer's dementia Code(s): G30.9 - ALZHEIMER'S DISEASE, UNSPECIFIED; F02.80 - DEMENTIA IN OTH DISEASES CLASSD ELSWHR W/O BEHAVRL DISTURB (2) Lactic acidosis Code(s): E87.2 - ACIDOSIS (3) Parkinsons Code(s): G20 - PARKINSON'S DISEASE (4) Seizure disorder Code(s): G40.909 - EPILEPSY, UNSP, NOT INTRACTABLE, WITHOUT STATUS EPILEPTICUS (5) ARF (acute renal failure) Code(s): N17.9 - ACUTE KIDNEY FAILURE, UNSPECIFIED (6) HLD (hyperlipidemia) Code(s): E78.5 - HYPERLIPIDEMIA, UNSPECIFIED (7) HTN (hypertension) Code(s): I10 - ESSENTIAL (PRIMARY) HYPERTENSION Assessment/Plan 88 y.o. female with PMH of Alzheimers dementia, Parkinsons, seizure d.o., HLD, HTN presenting with seizure episode/altered mental status/lactic acidosis --pt afebrile, without acute distress, wbc normal --cxr results noted --continue monitor off antibiotics for now
--- NOTE | 2018-07-13 17:58 | PN ---
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, Physician History of Present Illness: Pt's O2 sats have been normal - Current Medication List Current Medications: Active Medications Acetaminophen (Tylenol -) 650 mg PO Q6H PRN PRN Reason: FEVER/PAIN LEVEL 1-5 Last Admin: 07/12/18 22:49 Dose: 650 mg Amlodipine Besylate (Norvasc -) 2.5 mg PO DAILY [facility] Last Admin: 07/13/18 10:18 Dose: 2.5 mg Carbidopa/Levodopa (Sinemet 25/100 -) 1 each PO BID [facility] Last Admin: 07/13/18 10:18 Dose: 1 each Donepezil HCl (Aricept -) 10 mg PO DAILY [facility] Last Admin: 07/13/18 10:19 Dose: 10 mg Heparin Sodium (Porcine) (Heparin -) 5,000 unit SQ BID [facility] Last Admin: 07/13/18 10:18 Dose: 5,000 unit Levetiracetam (Keppra -) 750 mg PO BID [facility] Last Admin: 07/13/18 10:18 Dose: 750 mg - Objective Vital Signs: Vital Signs Temperature 99.2 F 07/13/18 14:52 Pulse Rate 66 07/13/18 14:52 Respiratory Rate 18 07/13/18 14:52 Blood Pressure 159/73 07/13/18 14:52 O2 Sat by Pulse Oximetry (%) 99 07/13/18 09:00 Neck: Yes: WNL, Supple Cardiovascular: Yes: WNL, Regular Rate and Rhythm Respiratory: Yes: Diminished Gastrointestinal: Yes: WNL, Normal Bowel Sounds, Soft Labs: CBC, BMP 07/13/18 06:30 07/10/18 06:00 INR, PTT INR 1.02 (0.83-1.09) 07/05/18 21:08 Problem List - Problems (1) Hypoxemia Assessment/Plan: Pt was given dose of IV lasix and improved CXR showed some improvement Encourage OOB DC planning to STR in am Code(s): R09.02 - HYPOXEMIA (2) Seizure disorder Assessment/Plan: Cont keppra Code(s): G40.909 - EPILEPSY, UNSP, NOT INTRACTABLE, WITHOUT STATUS EPILEPTICUS (3) Lactic acidosis Assessment/Plan: Resolved ?Due to sepsis Pt has been stable off antibxs Code(s): E87.2 - ACIDOSIS (4) Parkinsons Assessment/Plan: Cont sinemet Code(s): G20 - PARKINSON'S DISEASE (5) HTN (hypertension) Assessment/Plan: BP has been elevated Cont [facility] Will add HCTZ Code(s): I10 - ESSENTIAL (PRIMARY) HYPERTENSION (6) HLD (hyperlipidemia) Code(s): E78.5 - HYPERLIPIDEMIA, UNSPECIFIED (7) Alzheimer's dementia Code(s): G30.9 - ALZHEIMER'S DISEASE, UNSPECIFIED; F02.80 - DEMENTIA IN OTH DISEASES CLASSD ELSWHR W/O BEHAVRL DISTURB
[2018-07-14] MEDS ORDERED: HYDROCHLOROTHIAZIDE 12.5 MG CAPSULE (FP) PO SCH (10:00)
[2018-07-14] MEDS: levETIRAcetam 250 MG TABLET (FP) PO SCH (10:21)
[2018-07-14] MEDS: amLODIPine BESYLATE 2.5 MG TABLET (FP) PO SCH (10:21)
[2018-07-14] MEDS: CARBIDOPA/LEVODOPA 25/100 TABLET (FP) PO SCH (10:21)
[2018-07-14] MEDS: HEPARIN NA (PORCINE) 5,000 UNITS/ML 1ML VIAL SQ SCH (10:21)
[2018-07-14] MEDS: DONEPEZIL HCL 10 MG TABLET (FP) PO SCH (10:21)
--- NOTE | 2018-07-14 13:27 | PN ---
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, Physician History of Present Illness: Pt is weak but arousable, nonverbal. No acute respiratory distress noted. - Current Medication List Current Medications: Active Medications Acetaminophen (Tylenol -) 650 mg PO Q6H PRN PRN Reason: FEVER/PAIN LEVEL 1-5 Last Admin: 07/12/18 22:49 Dose: 650 mg Amlodipine Besylate (Norvasc -) 2.5 mg PO DAILY [facility] Last Admin: 07/14/18 10:21 Dose: 2.5 mg Carbidopa/Levodopa (Sinemet 25/100 -) 1 each PO BID [facility] Last Admin: 07/14/18 10:21 Dose: 1 each Donepezil HCl (Aricept -) 10 mg PO DAILY [facility] Last Admin: 07/14/18 10:21 Dose: 10 mg Heparin Sodium (Porcine) (Heparin -) 5,000 unit SQ BID [facility] Last Admin: 07/14/18 10:21 Dose: 5,000 unit Hydrochlorothiazide (Hctz -) 12.5 mg PO DAILY [facility] Last Admin: 07/14/18 10:21 Dose: 12.5 mg Levetiracetam (Keppra -) 750 mg PO BID [facility] Last Admin: 07/14/18 10:21 Dose: 750 mg - Objective Vital Signs: Vital Signs Temperature 100.3 F H 07/14/18 09:35 Pulse Rate 74 07/14/18 09:35 Respiratory Rate 18 07/14/18 09:35 Blood Pressure 199/86 07/14/18 09:35 O2 Sat by Pulse Oximetry (%) 93 L 07/14/18 09:00 Constitutional: Yes: No Distress Cardiovascular: Yes: Regular Rate and Rhythm Respiratory: Yes: Other (poor inspiratory effort, chest clear anteriorly) Gastrointestinal: Yes: Normal Bowel Sounds, Soft Neurological: Yes: Alert, Weakness Labs: CBC, BMP 07/13/18 06:30 07/10/18 06:00 INR, PTT INR 1.02 (0.83-1.09) 07/05/18 21:08 Problem List - Problems (1) Alzheimer's dementia Code(s): G30.9 - ALZHEIMER'S DISEASE, UNSPECIFIED; F02.80 - DEMENTIA IN OTH DISEASES CLASSD ELSWHR W/O BEHAVRL DISTURB (2) Lactic acidosis Code(s): E87.2 - ACIDOSIS (3) Parkinsons Code(s): G20 - PARKINSON'S DISEASE (4) Seizure disorder Code(s): G40.909 - EPILEPSY, UNSP, NOT INTRACTABLE, WITHOUT STATUS EPILEPTICUS (5) ARF (acute renal failure) Code(s): N17.9 - ACUTE KIDNEY FAILURE, UNSPECIFIED (6) HLD (hyperlipidemia) Code(s): E78.5 - HYPERLIPIDEMIA, UNSPECIFIED (7) HTN (hypertension) Code(s): I10 - ESSENTIAL (PRIMARY) HYPERTENSION Assessment/Plan 88 y.o. female with PMH of Alzheimers dementia, Parkinsons, seizure d.o., HLD, HTN presenting with seizure episode/altered mental status/lactic acidosis --temperatures trended down, alert, vitals stable at this time while off antibiotics --latest cxr with decreased congestive/infiltrative changes, pt without respiratory distress --blood and urine cultures with no growth --recommend aspiration precautions
[2018-07-14 15:13] VITALS: BP 142/77; PULSE 73; TEMP 99.2
== END 2018-07-14 15:43 | DRG 101 ==
LOC: JER 20:35 → JERBED 22:46 → JICU 07-06 00:21 → J5S 07-08 15:06
PROVIDERS: ADMIT Internal Medicine; ATTEND Internal Medicine
DX: G40.409 Other generalized epilepsy and epileptic syndromes, not intractable, without status epilepticus (principal); E87.2 Acidosis; E87.0 Hyperosmolality and hypernatremia; N17.9 Acute kidney failure, unspecified; E78.5 Hyperlipidemia, unspecified; I45.81 Long QT syndrome; Z86.73 Personal history of transient ischemic attack (TIA), and cerebral infarction without residual deficits; G30.9 Alzheimer's disease, unspecified; F02.80 Dementia in other diseases classified elsewhere, unspecified severity, without behavioral disturbance, psychotic disturbance, mood disturbance, and anxiety; D64.9 Anemia, unspecified; I10 Essential (primary) hypertension; R09.02 Hypoxemia
CPT/HCPCS: 36415; 70450-TC; 71045-TC-FY; 74230-TC-FY; 80048; 80053; 80185; 81003; 81015; 82040; 82728; 82803; 83540; 83550; 83605; 83735; 84100; 84466; 84484; 85025; 85610; 85730; 87040; 87086; 92611-GN; 93005; 93010; 93306-TC; 93880-TC; 95816; 97161-GP; 99284-25; J1644; J7030

== ENCOUNTER 2019-02-22 14:45 | Inpatient (IN) | payer OTHER ==
--- NOTE | 2019-02-22 15:03 | PDOC ---
History of Present Illness - General Stated Complaint: CHEST PAIN Time Seen by Provider: 02/22/19 15:00 History Source: Family (Son) Exam Limitations: Dementia, Physical Impairment (non-verbal at baseline) - History of Present Illness Initial Comments: Pt is an 88 yo F, with PMH of CVA (residual deficits on RUE and RLE), PD ( nonverbal), HTN, HLD, and epilepsy, who is presenting via EMS from home, with complaints of chest pain this AM at around 10:30 am. The pt is non-verbal at baseline, but is accompanied by her son. Her son states this AM, pt had 20-30 minute episode where pt was holding her chest and grimacing. She can normally stand up with some assistance, but her son states over the past 3 days, she has had decreased appetite with some "spitting out" her food, and has not been able to stand up at all. The son states her behavior seems otherwise typical for her , and her residual deficits from her stroke do not seem worsened. Son denies any fevers/chills, syncope, SOB, vomiting, changes to her diaper/hematuria/ diarrhea, or leg swelling. Pt sleeps flat at night. Social: No cigarette, alcohol, or drug use. No recent travel or sick contacts. Surgical: no relevant history. Family: no relevant history. 02/22/19 16:21 Past History - Travel Traveled outside of the country in the last 30 days: No Close contact w/someone who was outside of country & ill: No - Past Medical History Allergies/Adverse Reactions: Allergies Allergy/AdvReac Type Severity Reaction Status Date / Time No Known Allergies Allergy Verified 02/22/19 15:12 Home Medications: Ambulatory Orders Carbidopa/Levodopa 25/100 [Sinemet 25/100 -] 1 each PO TID 07/05/18 Donepezil HCl [Aricept] 10 mg PO DAILY 07/05/18 Escitalopram Oxalate [Lexapro -] 10 mg PO DAILY 07/05/18 Olmesartan Medoxomil [Benicar] 20 mg PO DAILY 07/05/18 Quetiapine Fumarate [Seroquel -] 25 mg PO BID 07/05/18 levETIRAcetam [Keppra -] 500 mg PO BID 07/05/18 Acetaminophen [Tylenol .Regular Strength -] 650 mg PO Q6H PRN tablet 07/12/18 Carbidopa/Levodopa 25/100 [Sinemet 25/100 -] 1 each PO BID tablet 07/12/18 Donepezil HCl [Aricept -] 10 mg PO DAILY tablet 07/12/18 levETIRAcetam [Keppra -] 750 mg PO BID tablet 07/12/18 Hydrochlorothiazide [Hctz -] 25 mg PO DAILY #30 tablet 07/14/18 COPD: No Dementia: Yes HTN: Yes Hypercholesterolemia: Yes Seizures: Yes - Suicide/Smoking/Psychosocial Hx Smoking Status: No Smoking History: Never smoked Have you smoked in the past 12 months: No Number of Cigarettes Smoked Daily: 0 Hx Alcohol Use: No Drug/Substance Use Hx: No Substance Use Type: None Review of Systems - Review of Systems Able to Perform ROS?: No (pt dementia, non-verbal,) Comments:: 02/22/19 15:49 see HPI for information obtained *Physical Exam - Physical Exam Comments: HTN 210/71, HR 60, 94% on RA, pt afebrile. Pt in NAD, appears comfortable. Thin body habitus. Pt alert, but non-verbal (baseline). Pt follows instructions -- smiles and grasps hands on commands. Lifts L leg and squeezes with L hand, residual deficits and weakness on R side. No facial droop. Limited neuro exam due to pt following minimal commands. No midline spinal tenderness, step-offs, or crepitus. Head normocephalic, atraumatic. Eyes PERRLA, EOMI. Oropharynx without erythema or exudates, no LAD b/l. No nasal congestion, hearing intact. Clear heart sounds, S1/S2, no JVD, b/l pedal edema, or heart murmur. Lung sounds diminished throughout, although pt has poor inspiratory effort and does not take deep breaths on command. No obvious wheezes or crackles heard. Pt breathing comfortably. No abdominal or CVA tenderness to palpation, no rebound, no guarding. Abdomen soft, non-distended, and with normoactive bowel sounds. Skin without jaundice or rash. 02/22/19 16:22 ED Treatment Course - LABORATORY CBC & Chemistry Diagram: 02/22/19 15:18 02/22/19 15:18 Medical Decision Making - Medical Decision Making Pt was seen at bedside, also will be seen by attending Dr. Skinner. Pt presenting via EMS from home, with complaints of chest pain this AM at around 10:30 am. The pt is non-verbal at baseline, but is accompanied by her . Her states this AM, pt had 20-30 minute episode where pt was holding her chest and grimacing. She can normally stand up with some assistance, but her son states over the past 3 days, she has had decreased appetite with some "spitting out" her food, and has not been able to stand up at all. The son states her behavior seems otherwise typical for her, and her residual deficits from her stroke do not seem worsened. Son denies any fevers/chills, syncope, SOB , vomiting, changes to her diaper/hematuria/diarrhea, or leg swelling. Pt sleeps flat at night. Considering ischemia (CVA, ACS) vs infection (UTI, pneumonia) vs pulm edema/CHF vs weakness 2/2 to electrolyte imbalances or failure to thrive. Ordered work-up including CBC, CMP, BNP, cardiac profile, chest x-ray, ECG, UA ( via straight cath) and urine culture. Will continue to reassess pt and monitor for symptomatic improvement. ECG: NSR, intervals WNL (HR 62, Pr 148, QRS 70, WTc 481). No TWIs or significant ST segment changes. No significant changes from prior ECG (07/07/2018 ). Chest: Chest pain Single AP view of the chest has been submitted. Since the prior study of 2017 again noted is a large heart, sclerotic knob, fullness of the superior mediastinum, prominent hilar markings and there are some increased markings in the left upper lobe by the aortic knob. This could represent some focal atelectasis. There may also be some atelectasis at the bases. There is a scoliosis with convexity to the right. There are degenerative spine and shoulder changes with right shoulder calcifications. Correlation and follow-up recommended. 02/22/19 15:49 Ordered non-contrast chest CT, as x-ray relatively unchanged except for possible atelectasis in CHRIS. R/o effusion vs pneumonia. 02/22/19 16:06 CBC WNL Pt in CT 02/22/19 16:28 CMP generally WNL Trop <.02 UA: 1+ LE, WBC 112, bacteria [id number] -- providing 1 g IV ceftriaxone for UTI 02/22/19 16:58 K 2.9 -- providing 3 bags of 10 meq KCl over [address] head: no acute findings, possible worsening mastoiditis. CT chest: Impression: Findings the noted consistent with interstitial pulmonary vascular congestion, mild cardiomegaly, small bilateral pleural effusions. Left upper lobe and left lower lobe opacity is seen which may be on the basis of infiltrate and/ or edema. Blood may also demonstrate a similar CT appearance. No CT evidence of pulmonary embolism. 02/22/19 18:12 Providing 500 mg IV azithromycin with ceftriaxone to cover for potential pneumonia. Placed order for speech and swallow study. Paging Dr. Crespo for admission. Blank admission order placed per protocol. 02/22/19 18:[address] Crespo x2. 02/22/19 19:00 Pt was placed on 2 L O2 NC. Pt systolic BP improving to 190s, head CT negative. Will continue to monitor. Pt admitted to Dr. Crespo's service, agrees with abx treatment and speech/ swallow study. Pending bed upstairs. 02/22/19 19:55 *DC/Admit/Observation/Transfer Diagnosis at time of Disposition: Atelectasis UTI (urinary tract infection) Qualifiers: Urinary tract infection type: site unspecified Hematuria presence: with hematuria Qualified Code(s): N39.0 - Urinary tract infection, site not specified - Discharge Dispostion Condition at time of disposition: Stable Decision to Admit order: Yes - Referrals Referrals: William Martinez MD [Primary Care Provider] - - Patient Instructions - Post Discharge Activity
[2019-02-22 15:29] LABS: BASO % 0.6 % (0-2.0); EOS % 3.3 % (0-4.5); HEMATOCRIT 35.1 % (32.4-45.2); HEMOGLOBIN 11.6 GM/dL (10.7-15.3); LYMPH % 18.4 % (8-40); MCH 29.1 pg (25.7-33.7); MCHC 33.1 g/dl (32.0-36.0); MEAN CELL VOLUME 87.9 fl (80-96); MEAN PLT VOLUME 7.8 fl (7.5-11.1); MONO % 9.5 % (3.8-10.2); NEUT % 68.2 % (42.8-82.8); PLATELET COUNT 416 K/MM3 (134-434); RBC 3.99 M/mm3 (3.60-5.2); RDW 13.9 % (11.6-15.6); WHITE BLOOD COUNT 9.1 K/mm3 (4.0-10.0)
[2019-02-22 16:06] LABS: EPI CELLS 0.5 /HPF (0-5/HPF); PH,URINE 6.5 (5.0-8.0); URINE APPEARANCE CLOUDY; URINE BILIRUBIN NEGATIVE (NEGATIVE); URINE CASTS 37 /lpf (0-8); URINE COLOR YELLOW; URINE GLUCOSE (UA) NEGATIVE (NEGATIVE); URINE KETONE NEGATIVE (NEGATIVE); URINE LEUK ESTERASE 1+ (NEGATIVE); URINE NITRITE NEGATIVE (NEGATIVE); URINE PROTEIN 4+ (NEGATIVE); URINE RBC 4 /hpf (0-4); URINE WBC 112 /hpf (0-5)
[2019-02-22 16:32] LABS: URINE BACTERIA 18102.7 /hpf (NEGATIVE)
[2019-02-22] MEDS ORDERED: CEFTRIAXONE 1,000 MG in DEXTROSE 5%-WATER - 50 ML IVPB ONE (16:46)
[2019-02-22 16:54] LABS: ALBUMIN 2.5 g/dl (3.4-5.0); ALK PHOS 71 U/L (45-117); ANION GAP 7 MMOL/L (8-16); BILIRUBIN,TOTAL 0.2 mg/dL (0.2-1); BLOOD UREA NITROGEN 10 mg/dL (7-18); CALCIUM 8.2 mg/dL (8.5-10.1); CHLORIDE 105 mmol/L (98-107); CO2 31 mmol/L (21-32); GLUCOSE,RANDOM 99 mg/dL (74-106); MAGNESIUM 1.8 mg/dL (1.8-2.4); PHOSPHOROUS 3.3 mg/dL (2.5-4.9); SGOT/AST 28 U/L (15-37); SGPT/ALT 11 U/L (13-61); SODIUM 143 mmol/L (136-145); TOT PROT 6.2 g/dl (6.4-8.2)
--- NOTE | 2019-02-22 16:59 | PDOC ---
Documentation entered by Darcy Mitchell SCRIBE, acting as scribe for Kvng Skinner MD. Attending Attestation - Resident Resident Name: Gabriella Edmonds - ED Attending Attestation I have performed the following: I have examined & evaluated the patient, The case was reviewed & discussed with the resident, I agree w/resident's findings & plan, Exceptions are as noted - HPI HPI: 02/22/19 16:28 The patient is an 88 year old, nonverbal, female, with a significant PMH of CVA , PD, HTN, HLD, Epilepsy, who was BIBA to the emergency department, accompanied by son, for evaluation of chest pain since around 10:30 this morning. Son states the patient was holding her chest and complaining for about 30 minutes. He notes that for the past couple of days, the patient has had decreased PO and spitting up food. He also reports that at baseline the patient can stand without assistance, but has been having trouble. Son denies any other noticeable signs. Denies shortness of breath, headache and dizziness. Denies fever, chills, nausea, vomit, diarrhea and constipation. Denies dysuria, frequency, urgency and hematuria. Allergies: NKA Social history: None reported PCP: Juan - Physicial Exam PE: 02/22/19 16:47 Agree with resident exam - Medical Decision Making 02/22/19 16:47 88 F with chest pain. Hypertensive in ED. Will evaluate for ACS vs CHF. Pt with equal pulses bilaterally and does not appear to be in active pain, making dissection less likely. - Labs, trop, BNP - CXR - Admit tele Kvng Skinner MD: This documentation has been prepared by the Stephen berger Sammi, SCRIBE, under my direction and personally reviewed by me in its entirety. I confirm that the documentation accurately reflects all work, treatment, procedures, and medical decision making performed by me.
[2019-02-22 17:06] LABS: POTASSIUM 2.9 mmol/L (3.5-5.1)
[2019-02-22] MEDS ORDERED: POTASSIUM CHLORIDE 20 MEQ PREMIX IVPB 100 ML IVPB ONE (17:06)
[2019-02-22 17:20] LABS: N-TERMINAL BNP 604.8 pg/ml (5-450)
[2019-02-22] MEDS ORDERED: POTASSIUM CHLORIDE TABS 20 MEQ TABLET.ER (FP) PO ONE (17:21)
[2019-02-22] MEDS ORDERED: CEFTRIAXONE 1 GM/50 ML BAG ONE (17:21)
[2019-02-22] MEDS ORDERED: KCL 10 MEQ IVPB 30 MEQ/300 ML INFUS.BAG IVPB ONE (17:56)
[2019-02-22] MEDS: KCL 10 MEQ IVPB 10 MEQ/100 ML INFUS.BAG IVPB SCH ×3 (18:06→20:25)
[2019-02-22] MEDS ORDERED: AZITHROMYCIN IVPB 500 MG in DEXTROSE 5%-WATER - 250 ML IVPB ONE (18:18)
[2019-02-22] MEDS ORDERED: AZITHROMYCIN IVPB 500 MG/250 ML BAG IVPB ONE (22:06)
[2019-02-23] MEDS ORDERED: ALBUTEROL SO4 2.5/IPRATROPIUM 0.5 INH SOL 3 ML VIAL.NEB. NEB PRN (08:31)
--- NOTE | 2019-02-23 09:18 | CON.CARD ---
Consult Consult Specialty:: Cardiology Referred by:: Medicine Reason for Consultation:: chest pain - History of Present Illness Chief Complaint: chest pain History of Present Illness: 88F h/o CVA (residual RUE and RLE weakness), PD (nonverbal), HTN, HLD, epilepsy p/w chest pain morning prior to admission. Lasted 20-30 min, held chest and grimaced per patient's son. patient unable to give history. Also decreased appetite, spitting out food, unable to stand up last few days. Was started on abx for possible PNA. Patient seen with family member this morning, appears improved and comfortable. 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: Yes: Alzheimer's, CVA, Dementia, Seizure Cardio/Vascular: Yes: HTN Psych: Yes: Depression - Past Surgical History Past Surgical History: Yes: None - Alcohol/Substance Use Hx Alcohol Use: No - Smoking History Smoking history: Never smoked Have you smoked in the past 12 months: No Aproximately how many cigarettes per day: 0 Home Medications - Allergies Allergies/Adverse Reactions: Allergies Allergy/AdvReac Type Severity Reaction Status Date / Time No Known Allergies Allergy Verified 02/22/19 15:12 - Home Medications Home Medications: Ambulatory Orders Carbidopa/Levodopa 25/100 [Sinemet 25/100 -] 1 each PO TID 07/05/18 Donepezil HCl [Aricept] 10 mg PO DAILY 07/05/18 Escitalopram Oxalate [Lexapro -] 10 mg PO DAILY 07/05/18 Olmesartan Medoxomil [Benicar] 20 mg PO DAILY 07/05/18 Quetiapine Fumarate [Seroquel -] 25 mg PO BID 07/05/18 levETIRAcetam [Keppra -] 500 mg PO BID 07/05/18 Acetaminophen [Tylenol .Regular Strength -] 650 mg PO Q6H PRN tablet 07/12/18 Carbidopa/Levodopa 25/100 [Sinemet 25/100 -] 1 each PO BID tablet 07/12/18 Donepezil HCl [Aricept -] 10 mg PO DAILY tablet 07/12/18 levETIRAcetam [Keppra -] 750 mg PO BID tablet 07/12/18 Hydrochlorothiazide [Hctz -] 25 mg PO DAILY #30 tablet 07/14/18 Family Disease History - Family Disease History Family History: Unremarkable Review of Systems Unable to obtain ROS, reason: nonverbal Vital Signs: Vital Signs Temperature 98.7 F 02/23/19 08:47 Pulse Rate 82 02/23/19 08:47 Respiratory Rate 17 02/23/19 08:47 Blood Pressure 156/98 02/23/19 08:47 O2 Sat by Pulse Oximetry (%) 95 02/23/19 08:47 Constitutional: Yes: No Distress, Calm Eyes: Yes: Conjunctiva Clear, EOM Intact HENT: Yes: Atraumatic, Normocephalic Neck: Yes: Supple, Trachea Midline Respiratory: Yes: Regular, CTA Bilaterally Gastrointestinal: Yes: Normal Bowel Sounds, Soft Cardiovascular: Yes: Regular Rate and Rhythm JVD: No Carotid Bruit: No PMI: Non-Displaced Heart Sounds: Yes: S1, S2 Murmur: No: Systolic Murmur Musculoskeletal: No: Back Pain Extremities: No: Cold Edema: No Peripheral Pulses WNL: Yes Peripheral Pulses: 2+ Left Doralis Pedis, 2+ Right Dorsalis Pedis Integumentary: No: Jaundice Neurological: Yes: Alert Psychiatric: No: Agitated - Other Data Labs, Other Data: CBC, BMP 02/22/19 15:18 02/22/19 15:18 Troponin, BNP 02/22/19 15:18 Troponin I < 0.02 B-Natriuretic Peptide 604.8 H Troponin, BNP 02/22/19 15:18 Troponin I < 0.02 B-Natriuretic Peptide 604.8 H Assessment/Plan Echo 06/2018 nl LV/RV function, mild AR, tr MR EKG:sinus, nl intervals, no ischemic changes CXR: CHRIS infiltrate CT chest: complete opacification of L lower lobe bronchus 88F h/o CVA (residual RUE and RLE weakness), PD (nonverbal), HTN, HLD, epilepsy p/w chest pain chest pain - patient unable to give further history, appears comfortable today - trop neg x 2, EKG no ischemic changes - BNP 604, however patient appears euvolemic currently - echo pending PNA - on abx per primary alt mental status - may be in setting of PNA - at baseline now per family member - neuro following parkinson's dz, hx CVA - manage per neuro HTN - BP elevated, meds not given yet - monitor after receiving home meds HLD - cont statin
[2019-02-23 09:34] LABS: BASO % 1.2 % (0-2.0); EOS % 0.5 % (0-4.5); HEMATOCRIT 37.4 % (32.4-45.2); HEMOGLOBIN 12.7 GM/dL (10.7-15.3); LYMPH % 10.2 % (8-40); MCH 29.6 pg (25.7-33.7); MCHC 34.1 g/dl (32.0-36.0); MEAN CELL VOLUME 86.8 fl (80-96); MEAN PLT VOLUME 7.9 fl (7.5-11.1); MONO % 5.9 % (3.8-10.2); NEUT % 82.2 % (42.8-82.8); PLATELET COUNT 488 K/MM3 (134-434); RBC 4.31 M/mm3 (3.60-5.2); RDW 13.6 % (11.6-15.6)
[2019-02-23] MEDS ORDERED: CEFTRIAXONE 1 GM in DEXTROSE 5%-WATER - 100 ML IVPB SCH (10:00)
[2019-02-23 10:26] LABS: ALBUMIN 2.5 g/dl (3.4-5.0); ALK PHOS 77 U/L (45-117); ANION GAP 7 MMOL/L (8-16); BILIRUBIN,TOTAL 0.4 mg/dL (0.2-1); BLOOD UREA NITROGEN 8 mg/dL (7-18); CALCIUM 8.3 mg/dL (8.5-10.1); CHLORIDE 100 mmol/L (98-107); CO2 31 mmol/L (21-32); GLUCOSE,RANDOM 106 mg/dL (74-106); POTASSIUM 3.4 mmol/L (3.5-5.1); SGOT/AST 32 U/L (15-37); SGPT/ALT 10 U/L (13-61); SODIUM 139 mmol/L (136-145); TOT PROT 6.8 g/dl (6.4-8.2)
--- NOTE | 2019-02-23 10:58 | CONSULT ---
Admitting History and Physical - Primary Care Physician PCP: Erlinda Crespo - Admission History of Present Illness: Per EMR- 88F h/o CVA (residual RUE and RLE weakness), PD (nonverbal), HTN, HLD, epilepsy p/w chest pain morning prior to admission. Lasted 20-30 min, held chest and grimaced per patient's son. patient unable to give history. Also decreased appetite, spitting out food, unable to stand up last few days. Was started on abx for possible PNA Selected Entries 07/13/18 07/13/18 07/13/18 01:32 05:40 10:00 Breakfast Lunch Temperature 98.4 F 98.3 F 98.6 F 07/13/18 07/13/18 07/13/18 11:55 14:52 18:00 Breakfast 75% Lunch 50% Temperature 99.2 F 99.1 F 07/13/18 07/14/18 07/14/18 22:00 02:00 06:00 Breakfast Lunch Temperature 98.6 F 99.6 F 98.3 F 07/14/18 07/14/18 02/22/19 09:35 10:53 15:00 Breakfast 100% Lunch Temperature 100.3 F H 97.9 F 02/23/19 02/23/19 07:47 08:47 Breakfast Lunch Temperature 98.7 F 98.7 F Laboratory Tests 07/13/18 02/23/19 06:30 09:20 WBC 6.3 10.0 MBS 07/09/18- Risk of aspiration due to oral holding with delayed swapna-pharyngeal transfer. Swallow itself is quite brisk.Risk of aspiration. Remind pt to swallow with each bite/sip and palpate larynx for reflex before next presentation. Chopped diet nectar/ thick liquid rec at that time with assessment to upgrade as pt improved. Pt's is her wing coverer. He reported that pt was d/c'd after last admission to [facility] and did well there on chopped food. Once home, he fed her chopped and soft, depending on her tolerance. He used to wash down the food with a sip of liquid. He said she holds food in her mouth at times but does not cough responsively. He said she would not eat over the last 3 days, with greater difficulty. 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 Left upper lobe and left lower lobe opacity is seen which may be on the basis of infiltrate and/ or edema. Blood may also demonstrate a similar CT appearance. No CT evidence of pulmonary embolism) Modified Barium Swallow: Report Reviewed (07/09/18 Risk of aspiration with delayed swallow, at times not triggered. Pt dependent at wing coverer to feed her slowly, small bites, remind her to swallow. Dys chopped/nectar thick liquid rec. ) - General Mental Status: Awake and Alert, Confused Attention: Distractible, Mild Impairment Head/Neck Control: Fair - Hearing Hearing: Functional Speech Evaluation - Communication Primary Language: TAGALOG Communication: Yes: Simple Responses (social speech. Precise.) - Speech Production Intelligibility: Yes: WNL - Speech Characteristics Voice Loudness: Normal Voice Pitch: Yes: Normal Voice Phonatory-based Quality: Yes: Normal Speech Clarity: < 100% Nasal Resonance: Normal Articulation: Yes: Precise - Language/Auditory Comprehension Observation: Comprehends Conversational Speech: No - Language/Verbal Expression Functional Communication Status: Yes: Moderately Impaired, Severely Impaired - Memory/Perception MCFP Memory: Yes: Severely Impaired Short Term Memory: Yes: Severely Impaired - Swallow Evaluation/Bedside Assessment Current Nutritional Intake: Regular, Thin Liquids Oral Secretions: Yes: WFL Dentition: Yes: Missing Teeth Facial Symmetry at Rest: Symmetrical Against Resistance Opening: Normal Against Resistance Closing: Normal Lingual Movement: Symmetric Lingual Speed of Movement: Normal Lingual Movement Strgth Against Opposition: Normal Lingual Movement Characteristics: Normal Velopharyngeal Movement: Normal Laryngeal Movement: Able to Palpate Rate of Intake: Slow/Holding (intermittent) Bolus Size: Small Labial Seal: WFL Chewing: Impaired Oral Prep Time: Increased A-P Transit: WFL Timing of Swallow: WFL Coughing/Throat Clear: No Change in Voice: No Recommendations - Speech Evaluation, Impression/Plan Impression: Oral holding intermittently secondary to Dementia. Swallow is quite brisk. Limited social speech is precise/intelligible. - Disposition Discharge to: To be Determined - Dysphagia Impressions/Plan Dysphagia Impressions: Mild Impairment, Moderate Impairment, Risk of Aspiration *Silent aspiration: cannot be R/O at bedside Dysphagia Treatment Plan: Small Bites, Chin Tuck/Down, Clear Pocket Food, Trial Feedings, Safe Rate, 1/2 tsp. at a time - Recommendations Diet Consistency: Dysphagia Minced Medication Administration: Crushed with applesauce Liquids: Thin Liquids Supplement: Ensure, Magic Cup
--- NOTE | 2019-02-23 11:03 | EKG ---
Test Reason : Blood Pressure : / mmHG Vent. Rate : 062 BPM Atrial Rate : 062 BPM P-R Int : 148 ms QRS Dur : 070 ms QT Int : 474 ms P-R-T Axes : 078 014 032 degrees QTc Int : 481 ms POOR DATA QUALITY, INTERPRETATION MAY BE ADVERSELY AFFECTED NORMAL SINUS RHYTHM NORMAL ECG WHEN COMPARED WITH ECG OF 07-JUL-2018 12:39, NO SIGNIFICANT CHANGE WAS FOUND Confirmed by MD Daniel, Yoav ([id number]) on 02/23/2019 11:02:42 AM Referred By: Confirmed By:Yoav Sanchez MD
--- NOTE | 2019-02-23 11:42 | CONSULT ---
Consult - text type - Consultation Consultation Note: NEUROLOGY CONSULT GREATLY APPRECIATED: This 88 yo RH female lives with her . Essentially bed-bound x 3 years and requires assistance with all ADL's. Uday provides history at bed. PMHX includes: dementia, depression, HTN, Parkinson's disease, seizures and L cerebral CVA. Maintained on: Sinemet 25/100 BID, donepezil 10 mg, lexapro 10 mg, olmesartan, HCTZ, quetiapine 25 mg BID, keppra 750 mg BID, notes memory decline and diagnosis of PD 5 years ago by TECHNOLOGY CONSULTANT. Reports she has not been followed by neurologist previously. Admitted initially over decreased appetite, generalized weakness x 3 days found to have UTI. Head CT (reviewed): poor quality study. Mod atrophy and periventricular ischemic changes. Brain MRI 09/21/12 (reviewed): L thalamic infarct. Multiple parieto-occiptal punctate hemorrhages. Scattered microbleeds c/w cerebral amyloid angiopathy. EKG- NSR Urine [id number] - now on Azithromycin and ceftriaxone. ELISA: BPs 150/90s. p70s. Cor Reg. No bruit. Neck supple. Early contracture or R hand and L knee. In diaper. NEURO: Mentation/Speech: awake, oriented to name only. Follows one step commands. hypophonic. +glabella, snout, suck, grasps CNII-CNXII: Masked facies. Blinks with threat. Reduced rapid tongue. Gag ok. Motor: Spastic hemiparesis on R. Dystonic posturing of R foot. + cogwheeling. Hyperreflexic on R > L. Absent AJ's. Plantars silent. Feels pinch in all fours, however unable to localize Impression: 1. 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 Thank you very much, [employer] Medina MD
[2019-02-23] MEDS ORDERED: DEXTROSE 5%-WATER - 50 ML IVPB ONE (12:21)
[2019-02-23] MEDS ORDERED: cefTRIAXone SODIUM 1 GM VIAL ONE (12:21)
[2019-02-23] MEDS: ESCITALOPRAM OXALATE 10 MG TABLET (FP) PO SCH (12:26)
[2019-02-23] MEDS: HYDROCHLOROTHIAZIDE 25 MG TABLET (FP) PO SCH (12:26)
[2019-02-23] MEDS: CARBIDOPA/LEVODOPA 25/100 TABLET (FP) PO SCH ×2 (12:26→22:57)
[2019-02-23] MEDS: VALSARTAN 160 MG TABLET (UD) PO SCH (12:27)
[2019-02-23] MEDS: CEFTRIAXONE 1 GM in DEXTROSE 5%-WATER - 50 ML IVPB SCH (12:27)
[2019-02-23] MEDS: QUEtiapine FUMARATE 25 MG TABLET (FP) PO SCH ×2 (12:27→22:57)
[2019-02-23] MEDS: HEPARIN NA (PORCINE) 5,000 UNITS/ML 1ML VIAL SQ SCH ×2 (12:27→22:57)
[2019-02-23] MEDS: DONEPEZIL HCL 10 MG TABLET (FP) PO SCH (12:28)
--- NOTE | 2019-02-23 12:34 | CON.PULM ---
Consult Consult Specialty:: PULM/CCM Referred by:: JOHNSON Reason for Consultation:: PNA - History of Present Illness History of Present Illness: 88 F, previous CVA with residual deficits, PD, minimally verbal according to her , HTN, HLD, and epilepsy. Admitted via the ER due to non-specific chest pain lasting about 30 minutes. No travel history or sick contacts. According to the she is essentially bed bound and cannot ambulate. He also reports, that she occasionally coughs while eating. No choking noted. 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 No: Asthma, Bronchitis, Cancer, COPD, O2 Dependent, Previously Intubated, Pulmonary Embolus, Pulmonary Fibrosis, Sleep Apnea Psych: Yes: Depression - Past Surgical History Past Surgical History: Yes: None - Alcohol/Substance Use Hx Alcohol Use: No - Smoking History Smoking history: Never smoked Have you smoked in the past 12 months: No Aproximately how many cigarettes per day: 0 Home Medications - Allergies Allergies/Adverse Reactions: Allergies Allergy/AdvReac Type Severity Reaction Status Date / Time No Known Allergies Allergy Verified 02/22/19 15:12 - Home Medications Home Medications: Ambulatory Orders Carbidopa/Levodopa 25/100 [Sinemet 25/100 -] 1 each PO TID 07/05/18 Donepezil HCl [Aricept] 10 mg PO DAILY 07/05/18 Escitalopram Oxalate [Lexapro -] 10 mg PO DAILY 07/05/18 Olmesartan Medoxomil [Benicar] 20 mg PO DAILY 07/05/18 Quetiapine Fumarate [Seroquel -] 25 mg PO BID 07/05/18 levETIRAcetam [Keppra -] 500 mg PO BID 07/05/18 Acetaminophen [Tylenol .Regular Strength -] 650 mg PO Q6H PRN tablet 07/12/18 Carbidopa/Levodopa 25/100 [Sinemet 25/100 -] 1 each PO BID tablet 07/12/18 Donepezil HCl [Aricept -] 10 mg PO DAILY tablet 07/12/18 levETIRAcetam [Keppra -] 750 mg PO BID tablet 09/02/18 Hydrochlorothiazide [Hctz -] 25 mg PO DAILY #30 tablet 07/14/18 Review of Systems Unable to obtain ROS, reason: not able to provide Physical Exam Vital Sings: Vital Signs Temperature 98.7 F 02/23/19 08:47 Pulse Rate 82 02/23/19 08:47 Respiratory Rate 17 02/23/19 08:47 Blood Pressure 156/98 02/23/19 08:47 O2 Sat by Pulse Oximetry (%) 95 02/23/19 08:47 Constitutional: Yes: Well Nourished, No Distress, Thin Eyes: Yes: Conjunctiva Clear, EOM Intact HENT: Yes: Atraumatic, Normocephalic Neck: Yes: Supple, Trachea Midline Cardiovascular: Yes: Regular Rate and Rhythm Respiratory: Yes: Cough, Diminished, Rhonchi. No: Accessory Muscle Use, Rales, SOB, SOB on Exertion, Stridor, Tachypnea, Wheezes ...Inspection: Yes: WNL ...Clubbing: No Gastrointestinal: Yes: Normal Bowel Sounds, Soft Renal/: Yes: WNL Musculoskeletal: Yes: WNL Extremities: Yes: WNL Edema: No Peripheral Pulses WNL: Yes Integumentary: Yes: WNL Neurological: Yes: Alert, Pre-Existing Deficit Psychiatric: Yes: Alert Labs: CBC, BMP 02/23/19 09:20 02/23/19 09:20 Imaging - Results Chest X-ray: Report Reviewed, Image Reviewed Cat Scan: Report Reviewed, Image Reviewed Problem List - Problems (1) Aspiration pneumonia Code(s): J69.0 - PNEUMONITIS DUE TO INHALATION OF FOOD AND VOMIT (2) Atelectasis Code(s): J98.11 - ATELECTASIS (3) Dementia Code(s): F03.90 - UNSPECIFIED DEMENTIA WITHOUT BEHAVIORAL DISTURBANCE (4) HLD (hyperlipidemia) Code(s): E78.5 - HYPERLIPIDEMIA, UNSPECIFIED (5) HTN (hypertension) Code(s): I10 - ESSENTIAL (PRIMARY) HYPERTENSION (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 Assessment/Plan ABX coverage noted O2 as needed Monitor off systemic steroids Aspiration precautions Swallow evaluation VTE prophylaxis No clear indication for BD TX Incentive Spirometry Will follow Thank you. Dr Narayanan
[2019-02-23 13:24] VITALS: BMI 20.7
--- NOTE | 2019-02-23 14:34 | ECHO ---
Name: IVA PALOMO Exam:Adult Echocardiogram Study Date: 02/23/2019 01:55 PM Age: 88 yrs Height: 59 in Weight: 100 lb BSA: 1.4 m2 MMode/2D Measurements & Calculations IVSd: 0.97 cm LA dimension: 3.2 cm LVIDd: 3.4 cm ACS: 1.9 cm LVIDs: 2.4 cm LVPWd: 1.2 cm EDV(Teich): 47.4 ml LVOT diam: 1.9 cm ESV(Teich): 20.9 ml RV S Dylan: 11.0 cm/sec Doppler Measurements & Calculations MV E max dylan: 40.5 cm/sec Ao V2 max: 154.3 cm/sec MV A max dylan: 95.8 cm/sec Ao max P.5 mmHg MV E/A: 0.42 Ao V2 mean: 103.2 cm/sec MV dec time: 0.20 sec Ao mean P.8 mmHg Ao V2 VTI: 29.4 cm CYNTHIA(I,D): 2.0 cm2 AI P1/2t: 426.2 msec CYNTHIA(V,D): 1.8 cm2 AI max dylan: 379.1 cm/sec LV V1 max P.8 mmHg AI max P.5 mmHg LV V1 mean P.0 mmHg AI dec slope: 260.5 cm/sec2 LV V1 max: 97.2 cm/sec LV V1 mean: 65.5 cm/sec LV V1 VTI: 20.7 cm SV(LVOT): 57.9 ml Med Peak E' Dylan: 3.4 cm/sec Med E/e': 11.9 Lat Peak E' Dylan: 5.8 cm/sec Lat E/e': 6.9 Procedure The study was technically difficult with many images being suboptimal in quality. Left Ventricle The left ventricular size, thickness and function are normal. Ejection Fraction = 55%. Grade I diasto lic dysfunction, (abnormal relaxation pattern). Right Ventricle The right ventricle is normal in size and function. Atria Normal left and right atrial size and function. Mitral Valve There is moderate mitral annular calcification. Tricuspid Valve The tricuspid valve is normal in structure and function. There was insufficient TR detected to calcul ate RV systolic pressure. Aortic Valve There is mild aortic sclerosis.;. Trace aortic regurgitation. Pulmonic Valve The pulmonic valve is not well seen, but is grossly normal. Great Vessels The aortic root is normal size. Pericardium/Pleura There is no pericardial effusion. Interpretation Summary The left ventricular size, thickness and function are normal Grade I diastolic dysfunction, (abnormal relaxation pattern). The right ventricle is normal in size and function. Jeff Bailey 02/23/2019 02:33 PM
[2019-02-23] MEDS ORDERED: levETIRAcetam 250 MG TABLET (FP) PO ONE (15:00)
[2019-02-23] MEDS: AZITHROMYCIN IVPB 250 MG in DEXTROSE 5%-WATER - 250 ML IVPB SCH (16:09)
--- NOTE | 2019-02-23 19:54 | HP ---
Admitting History and Physical - Admission History of Present Illness: Pt is a 88 y/o female w/ PMH significant for dementia, depression, parkinson's dz, HTN, seizure dz and CVA. Pt presented to the ER w/ decreased appetite, weakness for 3 days. 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 Cardiovascular: Yes: HTN Pulmonary: Yes: Pneumonia Psych: Yes: Depression - Past Surgical History Past Surgical History: Yes: None - Smoking History Smoking history: Never smoked Have you smoked in the past 12 months: No Aproximately how many cigarettes per day: 0 - Alcohol/Substance Use Hx Alcohol Use: No Home Medications - Allergies Allergies/Adverse Reactions: Allergies Allergy/AdvReac Type Severity Reaction Status Date / Time No Known Allergies Allergy Verified 02/22/19 15:12 - Home Medications Home Medications: Ambulatory Orders Carbidopa/Levodopa 25/100 [Sinemet 25/100 -] 1 each PO TID 07/05/18 Donepezil HCl [Aricept] 10 mg PO DAILY 07/05/18 Escitalopram Oxalate [Lexapro -] 10 mg PO DAILY 07/05/18 Olmesartan Medoxomil [Benicar] 20 mg PO DAILY 07/05/18 Quetiapine Fumarate [Seroquel -] 25 mg PO BID 07/05/18 levETIRAcetam [Keppra -] 500 mg PO BID 07/05/18 Acetaminophen [Tylenol .Regular Strength -] 650 mg PO Q6H PRN tablet 07/12/18 Carbidopa/Levodopa 25/100 [Sinemet 25/100 -] 1 each PO BID tablet 07/12/18 Donepezil HCl [Aricept -] 10 mg PO DAILY tablet 07/12/18 levETIRAcetam [Keppra -] 750 mg PO BID tablet 07/12/18 Hydrochlorothiazide [Hctz -] 25 mg PO DAILY #30 tablet 07/14/18 Family Disease History - Family Disease History Family History: Unable to Obtain Review of Systems Unable to obtain ROS, reason: Dementia Physical Examination Vital Signs: Vital Signs Temperature 98.4 F 02/23/19 18:17 Pulse Rate 83 02/23/19 18:17 Respiratory Rate 18 02/23/19 18:17 Blood Pressure 129/52 L 02/23/19 18:17 O2 Sat by Pulse Oximetry (%) 95 02/23/19 15:44 Constitutional: Yes: No Distress HENT: Yes: WNL Neck: Yes: WNL, Supple Cardiovascular: Yes: WNL, Regular Rate and Rhythm Respiratory: Yes: Diminished Gastrointestinal: Yes: WNL, Normal Bowel Sounds, Soft Extremities: Yes: WNL Edema: No Neurological: Yes: WNL, Alert, Oriented ...Motor Strength: WNL Labs: CBC, BMP 02/23/19 09:20 02/23/19 09:20 Problem List - Problems (1) Aspiration pneumonia Assessment/Plan: Cont IV antibxs Pulmonary/ID consults Code(s): J69.0 - PNEUMONITIS DUE TO INHALATION OF FOOD AND VOMIT (2) HTN (hypertension) Assessment/Plan: BP stable Code(s): I10 - ESSENTIAL (PRIMARY) HYPERTENSION (3) Dementia Code(s): F03.90 - UNSPECIFIED DEMENTIA WITHOUT BEHAVIORAL DISTURBANCE (4) HLD (hyperlipidemia) Code(s): E78.5 - HYPERLIPIDEMIA, UNSPECIFIED (5) 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
[2019-02-23] MEDS: levETIRAcetam 250 MG TABLET (FP) PO SCH (22:57)
--- NOTE | 2019-02-24 10:23 | PN ---
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 Feed only when alert.Small Bites, HOB elevated, Chin Tuck/Down, Clear Pocket Food, Trial Feedings, Safe Rate, 1/2 tsp. at a time
[2019-02-24] MEDS ORDERED: cefTRIAXone SODIUM 1 GM VIAL ONE (12:10)
[2019-02-24] MEDS ORDERED: DEXTROSE 5%-WATER - 50 ML IVPB ONE (12:11)
[2019-02-24] MEDS: ESCITALOPRAM OXALATE 10 MG TABLET (FP) PO SCH (12:14)
[2019-02-24] MEDS: levETIRAcetam 250 MG TABLET (FP) PO SCH ×2 (12:14→23:07)
[2019-02-24] MEDS: HYDROCHLOROTHIAZIDE 25 MG TABLET (FP) PO SCH (12:15)
[2019-02-24] MEDS: DONEPEZIL HCL 10 MG TABLET (FP) PO SCH (12:15)
[2019-02-24] MEDS: CARBIDOPA/LEVODOPA 25/100 TABLET (FP) PO SCH ×2 (12:15→23:07)
[2019-02-24] MEDS: VALSARTAN 160 MG TABLET (UD) PO SCH (12:15)
[2019-02-24] MEDS: QUEtiapine FUMARATE 25 MG TABLET (FP) PO SCH ×2 (12:16→23:07)
[2019-02-24] MEDS: AZITHROMYCIN IVPB 250 MG in DEXTROSE 5%-WATER - 250 ML IVPB SCH (12:16)
[2019-02-24] MEDS: HEPARIN NA (PORCINE) 5,000 UNITS/ML 1ML VIAL SQ SCH ×2 (12:16→23:07)
[2019-02-24] MEDS: CEFTRIAXONE 1 GM in DEXTROSE 5%-WATER - 50 ML IVPB SCH (12:16)
--- NOTE | 2019-02-24 12:52 | PN ---
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, Physician History of Present Illness: pulmonary awake,non-verbal,-resp distress,-congestion - Current Medication List Current Medications: Active Medications Albuterol/Ipratropium (Duoneb -) 1 amp NEB Q6H PRN PRN Reason: SHORTNESS OF BREATH Carbidopa/Levodopa (Sinemet 25/100 -) 1 each PO BID [facility] Last Admin: 02/24/19 12:15 Dose: 1 each Donepezil HCl (Aricept -) 10 mg PO DAILY [facility] Last Admin: 02/24/19 12:15 Dose: 10 mg Escitalopram Oxalate (Lexapro -) 10 mg PO DAILY [facility] Last Admin: 02/24/19 12:14 Dose: 10 mg Heparin Sodium (Porcine) (Heparin -) 5,000 unit SQ BID [facility] Last Admin: 02/24/19 12:16 Dose: 5,000 unit Hydrochlorothiazide (Hctz -) 25 mg PO DAILY [facility] Last Admin: 02/24/19 12:15 Dose: 25 mg Azithromycin 250 mg/ Dextrose 250 mls @ 250 mls/hr IVPB DAILY [facility] Last Admin: 02/24/19 12:16 Dose: 250 mls/hr Ceftriaxone Sodium 1 gm/ (Dextrose) 50 mls @ 200 mls/hr IVPB DAILY [facility]; Protocol Last Admin: 02/24/19 12:16 Dose: 200 mls/hr Levetiracetam (Keppra -) 750 mg PO BID [facility] Last Admin: 02/24/19 12:14 Dose: 750 mg Quetiapine Fumarate (Seroquel -) 25 mg PO BID [facility] Last Admin: 02/24/19 12:16 Dose: 25 mg Valsartan (Diovan -) 160 mg PO DAILY [facility] Last Admin: 02/24/19 12:15 Dose: 160 mg - Objective Vital Signs: Vital Signs Temperature 97.7 F 02/24/19 07:45 Pulse Rate 66 02/24/19 07:45 Respiratory Rate 18 02/24/19 07:45 Blood Pressure 137/55 L 02/24/19 07:45 O2 Sat by Pulse Oximetry (%) 95 02/23/19 21:00 Constitutional: Yes: Well Nourished, Calm Eyes: Yes: WNL HENT: Yes: WNL Neck: Yes: WNL Cardiovascular: Yes: Regular Rate and Rhythm, S1, S2 Respiratory: Yes: Diminished, Other (poor inspiratory effort) Gastrointestinal: Yes: Normal Bowel Sounds, Soft Extremities: Yes: WNL Edema: No Labs: CBC, BMP Assessment/Plan Problem List - Problems (1) Aspiration pneumonia Code(s): J69.0 - PNEUMONITIS DUE TO INHALATION OF FOOD AND VOMIT (2) Atelectasis Code(s): J98.11 - ATELECTASIS (3) Dementia Code(s): F03.90 - UNSPECIFIED DEMENTIA WITHOUT BEHAVIORAL DISTURBANCE (4) HLD (hyperlipidemia) Code(s): E78.5 - HYPERLIPIDEMIA, UNSPECIFIED (5) HTN (hypertension) Code(s): I10 - ESSENTIAL (PRIMARY) HYPERTENSION (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
--- NOTE | 2019-02-25 01:36 | PN ---
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, Physician History of Present Illness: Pt seen and examined 02/24/19 however note is being entered now - Current Medication List Current Medications: Active Medications Albuterol/Ipratropium (Duoneb -) 1 amp NEB Q6H PRN PRN Reason: SHORTNESS OF BREATH Carbidopa/Levodopa (Sinemet 25/100 -) 1 each PO BID [facility] Last Admin: 02/24/19 23:07 Dose: 1 each Donepezil HCl (Aricept -) 10 mg PO DAILY [facility] Last Admin: 02/24/19 12:15 Dose: 10 mg Escitalopram Oxalate (Lexapro -) 10 mg PO DAILY [facility] Last Admin: 02/24/19 12:14 Dose: 10 mg Heparin Sodium (Porcine) (Heparin -) 5,000 unit SQ BID [facility] Last Admin: 02/24/19 23:07 Dose: 5,000 unit Hydrochlorothiazide (Hctz -) 25 mg PO DAILY [facility] Last Admin: 02/24/19 12:15 Dose: 25 mg Azithromycin 250 mg/ Dextrose 250 mls @ 250 mls/hr IVPB DAILY [facility] Last Admin: 02/24/19 12:16 Dose: 250 mls/hr Ceftriaxone Sodium 1 gm/ (Dextrose) 50 mls @ 200 mls/hr IVPB DAILY [facility]; Protocol Last Admin: 02/24/19 12:16 Dose: 200 mls/hr Levetiracetam (Keppra -) 750 mg PO BID [facility] Last Admin: 02/24/19 23:07 Dose: 750 mg Quetiapine Fumarate (Seroquel -) 25 mg PO BID [facility] Last Admin: 02/24/19 23:07 Dose: 25 mg Valsartan (Diovan -) 160 mg PO DAILY [facility] Last Admin: 02/24/19 12:15 Dose: 160 mg - Objective Vital Signs: Vital Signs Temperature 97.9 F 02/24/19 18:49 Pulse Rate 80 02/24/19 22:00 Respiratory Rate 20 02/24/19 22:00 Blood Pressure 160/79 02/24/19 22:00 O2 Sat by Pulse Oximetry (%) 95 02/24/19 09:00 Labs: CBC, BMP 02/23/19 09:20 02/23/19 09:20
--- NOTE | 2019-02-25 10:42 | PN ---
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 \Educated staff on compensatory swallowing strategies. Feed only when alert.Small Bites, HOB elevated, Chin Tuck/Down, Clear Pocket Food, Trial Feedings, Safe Rate, 1/2 tsp. at a time, alternate food with sip of liquid.
[2019-02-25] MEDS ORDERED: PT OWN MED DRAWER 7, Y5N ONE ×2 (11:02→21:07)
[2019-02-25] MEDS ORDERED: cefTRIAXone SODIUM 1 GM VIAL ONE (11:02)
[2019-02-25] MEDS ORDERED: DEXTROSE 5%-WATER - 50 ML IVPB ONE (11:03)
[2019-02-25] MEDS: levETIRAcetam 250 MG TABLET (FP) PO SCH ×2 (11:05)
[2019-02-25] MEDS: CARBIDOPA/LEVODOPA 25/100 TABLET (FP) PO SCH ×2 (11:06→21:30)
[2019-02-25] MEDS: QUEtiapine FUMARATE 25 MG TABLET (FP) PO SCH ×2 (11:06→21:30)
[2019-02-25] MEDS: HYDROCHLOROTHIAZIDE 25 MG TABLET (FP) PO SCH (11:06)
[2019-02-25] MEDS: ESCITALOPRAM OXALATE 10 MG TABLET (FP) PO SCH (11:06)
[2019-02-25] MEDS: DONEPEZIL HCL 10 MG TABLET (FP) PO SCH (11:06)
[2019-02-25] MEDS: VALSARTAN 160 MG TABLET (UD) PO SCH (11:07)
[2019-02-25] MEDS: HEPARIN NA (PORCINE) 5,000 UNITS/ML 1ML VIAL SQ SCH ×2 (11:07→21:30)
[2019-02-25] MEDS: CEFTRIAXONE 1 GM in DEXTROSE 5%-WATER - 50 ML IVPB SCH (11:08)
--- NOTE | 2019-02-25 11:14 | CON.ID ---
Consult Consult Specialty:: infectious diseases Referred by:: Reason for Consultation:: uti - History of Present Illness Chief Complaint: chest pain History of Present Illness: 88 F, previous CVA with residual deficits, PD, minimally verbal , HTN, HLD, and epilepsy. 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 No: Asthma, Bronchitis, Cancer, COPD, O2 Dependent, Previously Intubated, Pulmonary Embolus, Pulmonary Fibrosis, Sleep Apnea Psych: Yes: Depression - Past Surgical History Past Surgical History: Yes: None - Alcohol/Substance Use Hx Alcohol Use: No - Smoking History Smoking history: Never smoked Have you smoked in the past 12 months: No Aproximately how many cigarettes per day: 0 Home Medications - Allergies Allergies/Adverse Reactions: Allergies Allergy/AdvReac Type Severity Reaction Status Date / Time No Known Allergies Allergy Verified 02/22/19 15:12 - Home Medications Home Medications: Ambulatory Orders Carbidopa/Levodopa 25/100 [Sinemet 25/100 -] 1 each PO TID 07/05/18 Donepezil HCl [Aricept] 10 mg PO DAILY 07/05/18 Escitalopram Oxalate [Lexapro -] 10 mg PO DAILY 07/05/18 Olmesartan Medoxomil [Benicar] 20 mg PO DAILY 07/05/18 Quetiapine Fumarate [Seroquel -] 25 mg PO BID 07/05/18 levETIRAcetam [Keppra -] 500 mg PO BID 07/05/18 Acetaminophen [Tylenol .Regular Strength -] 650 mg PO Q6H PRN tablet 07/12/18 Carbidopa/Levodopa 25/100 [Sinemet 25/100 -] 1 each PO BID tablet 07/12/18 Donepezil HCl [Aricept -] 10 mg PO DAILY tablet 07/12/18 levETIRAcetam [Keppra -] 750 mg PO BID tablet 07/12/18 Hydrochlorothiazide [Hctz -] 25 mg PO DAILY #30 tablet 07/14/18 Review of Systems Unable to obtain ROS, reason: unable to obtain Physical Exam Vital Signs: Vital Signs Temperature 98.3 F 02/25/19 06:34 Pulse Rate 63 02/25/19 11:03 Respiratory Rate 20 02/25/19 11:03 Blood Pressure 141/55 L 02/25/19 11:03 O2 Sat by Pulse Oximetry (%) 94 L 02/24/19 21:00 Constitutional: Yes: No Distress, Calm Neck: Yes: Supple, Trachea Midline Cardiovascular: Yes: Regular Rate and Rhythm Respiratory: Yes: Regular, On Nasal O2, Poor Air Entry Gastrointestinal: Yes: Normal Bowel Sounds, Soft Musculoskeletal: Yes: WNL Extremities: Yes: WNL Neurological: Yes: Alert, Other (non verbal) Psychiatric: Yes: Alert Labs: CBC, BMP 02/23/19 09:20 02/23/19 09:20 Imaging - Results Chest X-ray: Report Reviewed, Image Reviewed Cat Scan: Report Reviewed, Image Reviewed Assessment/Plan Problem List - Problems (1) Aspiration pneumonia Code(s): J69.0 - PNEUMONITIS DUE TO INHALATION OF FOOD AND VOMIT (2) Atelectasis Code(s): J98.11 - ATELECTASIS (3) Dementia Code(s): F03.90 - UNSPECIFIED DEMENTIA WITHOUT BEHAVIORAL DISTURBANCE (4) HLD (hyperlipidemia) Code(s): E78.5 - HYPERLIPIDEMIA, UNSPECIFIED (5) HTN (hypertension) Code(s): I10 - ESSENTIAL (PRIMARY) HYPERTENSION (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
--- NOTE | 2019-02-25 11:46 | PN ---
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 (short form) - Note 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: Awake but non-verbal. Breathing appears comfortable. No acute events overnight. Intake & Output 02/22/19 02/23/19 02/24/19 02/25/19 23:59 23:59 23:59 23:59 Intake Total 700 550 50 Output Total 3 1 Balance 697 549 50 Weight 100 lb 103 lb 103 lb Last Vital Signs Temp Pulse Resp BP Pulse Ox 98.3 F 63 20 141/55 L 94 L 02/25/19 06:34 02/25/19 11:03 02/25/19 11:03 02/25/19 11:03 02/24/19 21:00 Active Medications Albuterol/Ipratropium (Duoneb -) 1 amp NEB Q6H PRN PRN Reason: SHORTNESS OF BREATH Carbidopa/Levodopa (Sinemet 25/100 -) 1 each PO BID [facility] Last Admin: 02/25/19 11:06 Dose: 1 each Donepezil HCl (Aricept -) 10 mg PO DAILY [facility] Last Admin: 02/25/19 11:06 Dose: 10 mg Escitalopram Oxalate (Lexapro -) 10 mg PO DAILY [facility] Last Admin: 02/25/19 11:06 Dose: 10 mg Heparin Sodium (Porcine) (Heparin -) 5,000 unit SQ BID [facility] Last Admin: 02/25/19 11:07 Dose: 5,000 unit Hydrochlorothiazide (Hctz -) 25 mg PO DAILY [facility] Last Admin: 02/25/19 11:06 Dose: 25 mg Azithromycin 250 mg/ Dextrose 250 mls @ 250 mls/hr IVPB DAILY [facility] Last Admin: 02/24/19 12:16 Dose: 250 mls/hr Ceftriaxone Sodium 1 gm/ (Dextrose) 50 mls @ 200 mls/hr IVPB DAILY [facility]; Protocol Last Admin: 02/25/19 11:08 Dose: 200 mls/hr Levetiracetam (Keppra Oral Solution -) 750 mg PO BID [facility] Quetiapine Fumarate (Seroquel -) 25 mg PO BID [facility] Last Admin: 02/25/19 11:06 Dose: 25 mg Valsartan (Diovan -) 160 mg PO DAILY [facility] Last Admin: 02/25/19 11:07 Dose: 160 mg Constitutional: Yes: NAD Eyes: Yes: WNL HENT: Yes: WNL Neck: Yes: WNL Cardiovascular: Yes: Regular Rate and Rhythm, S1, S2 Respiratory: Yes: Diminished, Poor inspiratory effort Gastrointestinal: Yes: Normal Bowel Sounds, Soft Extremities: Yes: WNL Edema: No Labs: Laboratory Results - last 24 hr 02/25/19 08:35 Creatine Kinase 97 Troponin I < 0.02 Assessment/Plan Problem List - Problems (1) Aspiration pneumonia Code(s): J69.0 - PNEUMONITIS DUE TO INHALATION OF FOOD AND VOMIT (2) Atelectasis Code(s): J98.11 - ATELECTASIS (3) Dementia Code(s): F03.90 - UNSPECIFIED DEMENTIA WITHOUT BEHAVIORAL DISTURBANCE (4) HLD (hyperlipidemia) Code(s): E78.5 - HYPERLIPIDEMIA, UNSPECIFIED (5) HTN (hypertension) Code(s): I10 - ESSENTIAL (PRIMARY) HYPERTENSION (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 Assessment/Plan ABX per ID O2 as needed Aspiration precautions Swallow evaluation noted VTE prophylaxis No clear indication for BD TX Incentive Spirometry if able Dr Narayanan Problem List - Problems (1) Aspiration pneumonia Code(s): J69.0 - PNEUMONITIS DUE TO INHALATION OF FOOD AND VOMIT (2) Atelectasis Code(s): J98.11 - ATELECTASIS (3) Dementia Code(s): F03.90 - UNSPECIFIED DEMENTIA WITHOUT BEHAVIORAL DISTURBANCE (4) HLD (hyperlipidemia) Code(s): E78.5 - HYPERLIPIDEMIA, UNSPECIFIED (5) HTN (hypertension) Code(s): I10 - ESSENTIAL (PRIMARY) HYPERTENSION (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
[2019-02-25] MEDS: levETIRAcetam 500 MG/5 ML ORAL SOLUTION (UNIT-DOSE CUPS) PO SCH ×2 (12:28→21:30)
[2019-02-25] MEDS: AZITHROMYCIN IVPB 250 MG in DEXTROSE 5%-WATER - 250 ML IVPB SCH (12:38)
--- NOTE | 2019-02-25 16:42 | PN ---
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 (short form) - Note 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: s: nonverbal, appears comfortable Vital Signs Period Temp Pulse Resp BP Sys/[place] Pulse Ox Last 24 Hr 97.9 F-99 F 62-80 18-20 140-163/55-79 94-94 Constitutional: Yes: No Distress, Calm Eyes: Yes: Conjunctiva Clear, EOM Intact HENT: Yes: Atraumatic, Normocephalic Neck: Yes: Supple, Trachea Midline Respiratory: Yes: Regular, CTA Bilaterally Gastrointestinal: Yes: Normal Bowel Sounds, Soft Cardiovascular: Yes: Regular Rate and Rhythm JVD: No Carotid Bruit: No PMI: Non-Displaced Heart Sounds: Yes: S1, S2 Murmur: No: Systolic Murmur Musculoskeletal: No: Back Pain Extremities: No: Cold Edema: No Peripheral Pulses WNL: Yes Peripheral Pulses: 2+ Left Doralis Pedis, 2+ Right Dorsalis Pedis Integumentary: No: Jaundice Neurological: Yes: Alert Psychiatric: No: Agitated Vital Signs Period Temp Pulse Resp BP Sys/[place] Pulse Ox Last 24 Hr 97.9 F-99 F 62-80 18-20 140-163/55-79 94-94 Assessment/Plan Echo 06/2018 nl LV/RV function, mild AR, tr MR EKG:sinus, nl intervals, no ischemic changes CXR: CHRIS infiltrate CT chest: complete opacification of L lower lobe bronchus echo 02/2019 nl LV function, grade I diastolic dysfunction, nl RV 88F h/o CVA (residual RUE and RLE weakness), PD (nonverbal), HTN, HLD, epilepsy p/w chest pain chest pain - patient unable to give further history, appears comfortable - trop neg x 4, EKG no ischemic changes - BNP 604, however patient appears euvolemic currently - echo nl LV function PNA - on abx per primary alt mental status - may be in setting of PNA - at baseline per family member - neuro following parkinson's dz, hx CVA - manage per neuro HTN - stable, continue home meds HLD - cont statin
--- NOTE | 2019-02-25 23:17 | PN ---
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, Physician History of Present Illness: No new complaints - Current Medication List Current Medications: Active Medications Albuterol/Ipratropium (Duoneb -) 1 amp NEB Q6H PRN PRN Reason: SHORTNESS OF BREATH Carbidopa/Levodopa (Sinemet 25/100 -) 1 each PO BID [facility] Last Admin: 02/25/19 21:30 Dose: 1 each Donepezil HCl (Aricept -) 10 mg PO DAILY [facility] Last Admin: 02/25/19 11:06 Dose: 10 mg Escitalopram Oxalate (Lexapro -) 10 mg PO DAILY [facility] Last Admin: 02/25/19 11:06 Dose: 10 mg Heparin Sodium (Porcine) (Heparin -) 5,000 unit SQ BID [facility] Last Admin: 02/25/19 21:30 Dose: 5,000 unit Hydrochlorothiazide (Hctz -) 25 mg PO DAILY [facility] Last Admin: 02/25/19 11:06 Dose: 25 mg Azithromycin 250 mg/ Dextrose 250 mls @ 250 mls/hr IVPB DAILY [facility] Last Admin: 02/25/19 12:38 Dose: 250 mls/hr Ceftriaxone Sodium 1 gm/ (Dextrose) 50 mls @ 200 mls/hr IVPB DAILY [facility]; Protocol Last Admin: 02/25/19 11:08 Dose: 200 mls/hr Levetiracetam (Keppra Oral Solution -) 750 mg PO BID [facility] Last Admin: 02/25/19 21:30 Dose: 750 mg Quetiapine Fumarate (Seroquel -) 25 mg PO BID [facility] Last Admin: 02/25/19 21:30 Dose: 25 mg Valsartan (Diovan -) 160 mg PO DAILY [facility] Last Admin: 02/25/19 11:07 Dose: 160 mg - Objective Vital Signs: Vital Signs Temperature 98.0 F 02/25/19 21:14 Pulse Rate 62 02/25/19 21:14 Respiratory Rate 18 02/25/19 21:14 Blood Pressure 161/83 02/25/19 21:14 O2 Sat by Pulse Oximetry (%) 94 L 02/25/19 21:00 Neck: Yes: WNL, Supple Cardiovascular: Yes: WNL, Regular Rate and Rhythm Respiratory: Yes: WNL, Regular, CTA Bilaterally Gastrointestinal: Yes: WNL, Normal Bowel Sounds, Soft Extremities: Yes: WNL Edema: No Labs: CBC, BMP 02/23/19 09:20 02/23/19 09:20 Problem List - Problems (1) Aspiration pneumonia Assessment/Plan: Cont IV antibxs Swallow eval noted Aspiration precautions Code(s): J69.0 - PNEUMONITIS DUE TO INHALATION OF FOOD AND VOMIT (2) UTI (urinary tract infection) Assessment/Plan: Due to Klebsiella Cont IV ceftriaxone Code(s): N39.0 - URINARY TRACT INFECTION, SITE NOT SPECIFIED Qualifiers: Urinary tract infection type: site unspecified Hematuria presence: with hematuria Qualified Code(s): N39.0 - Urinary tract infection, site not specified; R31.9 - Hematuria, unspecified (3) Dementia Assessment/Plan: PT eval Code(s): F03.90 - UNSPECIFIED DEMENTIA WITHOUT BEHAVIORAL DISTURBANCE (4) HLD (hyperlipidemia) Code(s): E78.5 - HYPERLIPIDEMIA, UNSPECIFIED (5) HTN (hypertension) Assessment/Plan: BP stable Code(s): I10 - ESSENTIAL (PRIMARY) HYPERTENSION (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
[2019-02-26 07:09] LABS: BASO % 1.2 % (0-2.0); EOS % 4.1 % (0-4.5); HEMATOCRIT 34.8 % (32.4-45.2); HEMOGLOBIN 11.5 GM/dL (10.7-15.3); MCH 28.8 pg (25.7-33.7); MCHC 33.1 g/dl (32.0-36.0); MEAN CELL VOLUME 86.9 fl (80-96); MEAN PLT VOLUME 8.5 fl (7.5-11.1); MONO % 11.8 % (3.8-10.2); NEUT % 57.9 % (42.8-82.8); PLATELET COUNT 480 K/MM3 (134-434); RBC 4.01 M/mm3 (3.60-5.2); RDW 13.6 % (11.6-15.6); WHITE BLOOD COUNT 6.3 K/mm3 (4.0-10.0)
[2019-02-26] MEDS ORDERED: cefTRIAXone SODIUM 1 GM VIAL ONE (09:44)
[2019-02-26] MEDS ORDERED: DEXTROSE 5%-WATER - 50 ML IVPB ONE (09:44)
[2019-02-26] MEDS: HYDROCHLOROTHIAZIDE 25 MG TABLET (FP) PO SCH (09:47)
[2019-02-26] MEDS: HEPARIN NA (PORCINE) 5,000 UNITS/ML 1ML VIAL SQ SCH ×2 (09:47→21:41)
[2019-02-26] MEDS: ESCITALOPRAM OXALATE 10 MG TABLET (FP) PO SCH (09:47)
[2019-02-26] MEDS: CARBIDOPA/LEVODOPA 25/100 TABLET (FP) PO SCH ×2 (09:47→21:41)
[2019-02-26] MEDS: QUEtiapine FUMARATE 25 MG TABLET (FP) PO SCH ×2 (09:47→21:41)
[2019-02-26] MEDS: CEFTRIAXONE 1 GM in DEXTROSE 5%-WATER - 50 ML IVPB SCH (09:47)
--- NOTE | 2019-02-26 10:10 | PN ---
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, Physician History of Present Illness: patient stable still non verbal - Current Medication List Current Medications: Active Medications Albuterol/Ipratropium (Duoneb -) 1 amp NEB Q6H PRN PRN Reason: SHORTNESS OF BREATH Carbidopa/Levodopa (Sinemet 25/100 -) 1 each PO BID [facility] Last Admin: 02/26/19 09:47 Dose: 1 each Donepezil HCl (Aricept -) 10 mg PO DAILY [facility] Last Admin: 02/25/19 11:06 Dose: 10 mg Escitalopram Oxalate (Lexapro -) 10 mg PO DAILY [facility] Last Admin: 02/26/19 09:47 Dose: 10 mg Heparin Sodium (Porcine) (Heparin -) 5,000 unit SQ BID [facility] Last Admin: 02/26/19 09:47 Dose: 5,000 unit Hydrochlorothiazide (Hctz -) 25 mg PO DAILY [facility] Last Admin: 02/26/19 09:47 Dose: 25 mg Azithromycin 250 mg/ Dextrose 250 mls @ 250 mls/hr IVPB DAILY [facility] Last Admin: 02/25/19 12:38 Dose: 250 mls/hr Ceftriaxone Sodium 1 gm/ (Dextrose) 50 mls @ 200 mls/hr IVPB DAILY [facility]; Protocol Last Admin: 02/26/19 09:47 Dose: 200 mls/hr Levetiracetam (Keppra Oral Solution -) 750 mg PO BID [facility] Last Admin: 02/25/19 21:30 Dose: 750 mg Quetiapine Fumarate (Seroquel -) 25 mg PO BID [facility] Last Admin: 02/26/19 09:47 Dose: 25 mg Valsartan (Diovan -) 160 mg PO DAILY [facility] Last Admin: 02/25/19 11:07 Dose: 160 mg - Objective Vital Signs: Vital Signs Temperature 97.7 F 02/26/19 06:00 Pulse Rate 56 L 02/26/19 09:40 Respiratory Rate 20 02/26/19 09:40 Blood Pressure 178/68 H 02/26/19 09:40 O2 Sat by Pulse Oximetry (%) 94 L 02/25/19 21:00 Constitutional: Yes: No Distress, Calm Cardiovascular: Yes: Regular Rate and Rhythm Respiratory: Yes: Regular, CTA Bilaterally Gastrointestinal: Yes: Normal Bowel Sounds, Soft Musculoskeletal: Yes: WNL Extremities: Yes: WNL Neurological: Yes: Alert, Other (stil non verbal) Psychiatric: Yes: Alert Labs: CBC, BMP 02/26/19 06:00 Assessment/Plan Problem List - Problems (1) Aspiration pneumonia Code(s): J69.0 - PNEUMONITIS DUE TO INHALATION OF FOOD AND VOMIT (2) Atelectasis Code(s): J98.11 - ATELECTASIS (3) Dementia Code(s): F03.90 - UNSPECIFIED DEMENTIA WITHOUT BEHAVIORAL DISTURBANCE (4) HLD (hyperlipidemia) Code(s): E78.5 - HYPERLIPIDEMIA, UNSPECIFIED (5) HTN (hypertension) Code(s): I10 - ESSENTIAL (PRIMARY) HYPERTENSION (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
[2019-02-26] MEDS: VALSARTAN 160 MG TABLET (UD) PO SCH (10:17)
[2019-02-26] MEDS: DONEPEZIL HCL 10 MG TABLET (FP) PO SCH (10:17)
[2019-02-26] MEDS: levETIRAcetam 500 MG/5 ML ORAL SOLUTION (UNIT-DOSE CUPS) PO SCH ×2 (10:18→21:42)
[2019-02-26 11:24] LABS: ALBUMIN 2.3 g/dl (3.4-5.0); ALK PHOS 60 U/L (45-117); ANION GAP 9 MMOL/L (8-16); BILIRUBIN,TOTAL 0.2 mg/dL (0.2-1); BLOOD UREA NITROGEN 9 mg/dL (7-18); CALCIUM 8.7 mg/dL (8.5-10.1); CHLORIDE 100 mmol/L (98-107); CO2 31 mmol/L (21-32); GLUCOSE,RANDOM 80 mg/dL (74-106); POTASSIUM 3.2 mmol/L (3.5-5.1); SGOT/AST 29 U/L (15-37); SGPT/ALT 6 U/L (13-61); SODIUM 140 mmol/L (136-145); TOT PROT 5.7 g/dl (6.4-8.2)
[2019-02-26] MEDS: AZITHROMYCIN IVPB 250 MG in DEXTROSE 5%-WATER - 250 ML IVPB SCH (11:57)
--- NOTE | 2019-02-26 14:03 | PN ---
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 (short form) - Note 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: s: nonverbal, appears comfortable Vital Signs Period Temp Pulse Resp BP Sys/[place] Pulse Ox Last 24 Hr 97.7 F-98.9 F 55-65 17-20 132-178/50-83 94 Constitutional: Yes: No Distress, Calm Eyes: Yes: Conjunctiva Clear Respiratory: Yes: Regular, CTA Bilaterally Gastrointestinal: Yes: Normal Bowel Sounds, Soft Cardiovascular: Yes: Regular Rate and Rhythm JVD: No Heart Sounds: Yes: S1, S2 Murmur: No: Systolic Murmur Musculoskeletal: No: Back Pain Extremities: No: Cold Edema: No Peripheral Pulses: 2+ Left Doralis Pedis, 2+ Right Dorsalis Pedis Integumentary: No: Jaundice Neurological: Yes: Alert Psychiatric: No: Agitated Current Medications Generic Name Dose Route Start Last Admin Trade Name Freq PRN Reason Stop Dose Admin Albuterol/Ipratropium 1 amp 02/23/19 08:31 Duoneb - NEB Q6H PRN SHORTNESS OF BREATH Carbidopa/Levodopa 1 each 02/23/19 10:00 02/26/19 09:47 Sinemet 25/100 - PO 1 each BID [facility] Administration Donepezil HCl 10 mg 02/23/19 10:00 02/26/19 10:17 Aricept - PO 10 mg DAILY [facility] Administration Escitalopram Oxalate 10 mg 02/23/19 10:00 02/26/19 09:47 Lexapro - PO 10 mg DAILY [facility] Administration Heparin Sodium (Porcine) 5,000 unit 02/23/19 10:00 02/26/19 09:47 Heparin - SQ 5,000 unit BID [facility] Administration Hydrochlorothiazide 25 mg 02/23/19 10:00 02/26/19 09:47 Hctz - PO 25 mg DAILY [facility] Administration Azithromycin 250 mg/ Dextrose 250 mls @ 250 mls/hr 02/23/19 10:00 02/26/19 11 :57 IVPB 250 mls/hr DAILY [facility] Administration Ceftriaxone Sodium 1 gm/ 50 mls @ 200 mls/hr 02/23/19 10:00 02/26/19 09:47 Dextrose IVPB 200 mls/hr DAILY [facility] Administration Protocol Levetiracetam 750 mg 02/25/19 11:24 02/26/19 10:18 Keppra Oral Solution - PO 750 mg BID [facility] Administration Quetiapine Fumarate 25 mg 02/23/19 10:00 02/26/19 09:47 Seroquel - PO 25 mg BID [facility] Administration Valsartan 160 mg 02/23/19 10:00 02/26/19 10:17 Diovan - PO 160 mg DAILY [facility] Administration CBC, BMP 02/26/19 06:00 02/26/19 06:00 Assessment/Plan Echo 06/2018 nl LV/RV function, mild AR, tr MR EKG:sinus, nl intervals, no ischemic changes CXR: CHRIS infiltrate CT chest: complete opacification of L lower lobe bronchus echo 02/2019 nl LV function, grade I diastolic dysfunction, nl RV 86F h/o CVA (residual RUE and RLE weakness), PD (nonverbal), HTN, HLD, epilepsy p/w chest pain chest pain - patient unable to give further history, appears comfortable - trop neg x 4, EKG no ischemic changes - BNP 604, however patient appears euvolemic currently - echo nl LV function PNA - on abx per primary alt mental status - may be in setting of PNA - at baseline per family member - neuro following parkinson's dz, hx CVA - manage per neuro HTN - bp elevated, will cont current meds and add norvasc 2.5 qd HLD - cont statin
--- NOTE | 2019-02-26 16:26 | PN ---
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 (short form) - Note 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: PULMONARY Awake but non-verbal. Breathing appears comfortable. No acute events overnight. VSS Constitutional: Yes: NAD Eyes: Yes: WNL HENT: Yes: WNL Neck: Yes: WNL Cardiovascular: Yes: Regular Rate and Rhythm, S1, S2 Respiratory: Yes: Diminished, Poor inspiratory effort Gastrointestinal: Yes: Normal Bowel Sounds, Soft Extremities: Yes: WNL Edema: No Labs/notes/images/meds reviewed - Problems (1) Aspiration pneumonia Code(s): J69.0 - PNEUMONITIS DUE TO INHALATION OF FOOD AND VOMIT (2) Atelectasis Code(s): J98.11 - ATELECTASIS (3) Dementia Code(s): F03.90 - UNSPECIFIED DEMENTIA WITHOUT BEHAVIORAL DISTURBANCE (4) HLD (hyperlipidemia) Code(s): E78.5 - HYPERLIPIDEMIA, UNSPECIFIED (5) HTN (hypertension) Code(s): I10 - ESSENTIAL (PRIMARY) HYPERTENSION (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
--- NOTE | 2019-02-26 21:38 | PN ---
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, Physician - Current Medication List Current Medications: Active Medications Albuterol/Ipratropium (Duoneb -) 1 amp NEB Q6H PRN PRN Reason: SHORTNESS OF BREATH Amlodipine Besylate (Norvasc -) 2.[address] [facility] Carbidopa/Levodopa (Sinemet 25/100 -) [address] [facility] Last Admin: 02/26/19 09:47 Dose: 1 each Donepezil HCl (Aricept -) [address] [facility] Last Admin: 02/26/19 10:17 Dose: 10 mg Escitalopram Oxalate (Lexapro -) [address] [facility] Last Admin: 02/26/19 09:47 Dose: 10 mg Heparin Sodium (Porcine) (Heparin -) 5,[address] [facility] Last Admin: 02/26/19 09:47 Dose: 5,000 unit Hydrochlorothiazide (Hctz -) [address] [facility] Last Admin: 02/26/19 09:47 Dose: 25 mg Azithromycin 250 mg/ Dextrose 250 mls @ 250 mls/hr IVPB DAILY [facility] Last Admin: 02/26/19 11:57 Dose: 250 mls/hr Ceftriaxone Sodium 1 gm/ (Dextrose) 50 mls @ 200 mls/hr IVPB DAILY [facility]; Protocol Last Admin: 02/26/19 09:47 Dose: 200 mls/hr Levetiracetam (Keppra Oral Solution -) [address] [facility] Last Admin: 02/26/19 10:18 Dose: 750 mg Quetiapine Fumarate (Seroquel -) [address] [facility] Last Admin: 02/26/19 09:47 Dose: 25 mg Valsartan (Diovan -) [address] [facility] Last Admin: 02/26/19 10:17 Dose: 160 mg - Objective Vital Signs: Vital Signs Temperature 98.0 F 02/26/19 18:30 Pulse Rate 59 L 02/26/19 18:30 Respiratory Rate 18 02/26/19 18:30 Blood Pressure 140/63 02/26/19 18:30 O2 Sat by Pulse Oximetry (%) 94 L 02/26/19 10:05 Labs: CBC, BMP 02/26/19 06:00 02/26/19 06:00 Problem List - Problems (1) Aspiration pneumonia Code(s): J69.0 - PNEUMONITIS DUE TO INHALATION OF FOOD AND VOMIT (2) UTI (urinary tract infection) Code(s): N39.0 - URINARY TRACT INFECTION, SITE NOT SPECIFIED Qualifiers: Urinary tract infection type: site unspecified Hematuria presence: with hematuria Qualified Code(s): N39.0 - Urinary tract infection, site not specified; R31.9 - Hematuria, unspecified (3) Dementia Code(s): F03.90 - UNSPECIFIED DEMENTIA WITHOUT BEHAVIORAL DISTURBANCE (4) HLD (hyperlipidemia) Code(s): E78.5 - HYPERLIPIDEMIA, UNSPECIFIED (5) HTN (hypertension) Code(s): I10 - ESSENTIAL (PRIMARY) HYPERTENSION (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
[2019-02-27] MEDS ORDERED: cefTRIAXone SODIUM 1 GM VIAL ONE (09:10)
[2019-02-27] MEDS ORDERED: DEXTROSE 5%-WATER - 50 ML IVPB ONE (09:10)
[2019-02-27] MEDS: CEFTRIAXONE 1 GM in DEXTROSE 5%-WATER - 50 ML IVPB SCH (09:12)
[2019-02-27] MEDS: VALSARTAN 160 MG TABLET (UD) PO SCH (09:13)
[2019-02-27] MEDS: amLODIPine BESYLATE 2.5 MG TABLET (FP) PO SCH (09:13)
[2019-02-27] MEDS: QUEtiapine FUMARATE 25 MG TABLET (FP) PO SCH ×2 (09:13→21:27)
[2019-02-27] MEDS: CARBIDOPA/LEVODOPA 25/100 TABLET (FP) PO SCH ×2 (09:13→21:27)
[2019-02-27] MEDS: HYDROCHLOROTHIAZIDE 25 MG TABLET (FP) PO SCH (09:13)
[2019-02-27] MEDS: ESCITALOPRAM OXALATE 10 MG TABLET (FP) PO SCH (09:13)
[2019-02-27] MEDS: DONEPEZIL HCL 10 MG TABLET (FP) PO SCH (09:14)
[2019-02-27] MEDS: HEPARIN NA (PORCINE) 5,000 UNITS/ML 1ML VIAL SQ SCH ×2 (09:15→21:26)
[2019-02-27] MEDS: levETIRAcetam 500 MG/5 ML ORAL SOLUTION (UNIT-DOSE CUPS) PO SCH ×2 (09:15→21:27)
[2019-02-27] MEDS: AZITHROMYCIN IVPB 250 MG in DEXTROSE 5%-WATER - 250 ML IVPB SCH (10:07)
--- NOTE | 2019-02-27 11:20 | PN ---
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, Physician History of Present Illness: patient stable not talking in room awake and alert - Current Medication List Current Medications: Active Medications Albuterol/Ipratropium (Duoneb -) 1 amp NEB Q6H PRN PRN Reason: SHORTNESS OF BREATH Amlodipine Besylate (Norvasc -) 2.5 mg PO DAILY [facility] Last Admin: 02/27/19 09:13 Dose: 2.5 mg Carbidopa/Levodopa (Sinemet 25/100 -) 1 each PO BID [facility] Last Admin: 02/27/19 09:13 Dose: 1 each Donepezil HCl (Aricept -) 10 mg PO DAILY [facility] Last Admin: 02/27/19 09:14 Dose: 10 mg Escitalopram Oxalate (Lexapro -) 10 mg PO DAILY [facility] Last Admin: 02/27/19 09:13 Dose: 10 mg Heparin Sodium (Porcine) (Heparin -) 5,000 unit SQ BID [facility] Last Admin: 02/27/19 09:15 Dose: 5,000 unit Hydrochlorothiazide (Hctz -) 25 mg PO DAILY [facility] Last Admin: 02/27/19 09:13 Dose: 25 mg Azithromycin 250 mg/ Dextrose 250 mls @ 250 mls/hr IVPB DAILY [facility] Last Admin: 02/27/19 10:07 Dose: 250 mls/hr Ceftriaxone Sodium 1 gm/ (Dextrose) 50 mls @ 200 mls/hr IVPB DAILY [facility]; Protocol Last Admin: 02/27/19 09:12 Dose: 200 mls/hr Levetiracetam (Keppra Oral Solution -) 750 mg PO BID [facility] Last Admin: 02/27/19 09:15 Dose: 750 mg Quetiapine Fumarate (Seroquel -) 25 mg PO BID [facility] Last Admin: 02/27/19 09:13 Dose: 25 mg Valsartan (Diovan -) 160 mg PO DAILY [facility] Last Admin: 02/27/19 09:13 Dose: 160 mg - Objective Vital Signs: Vital Signs Temperature 98.5 F 02/27/19 09:00 Pulse Rate 68 02/27/19 09:00 Respiratory Rate 18 02/27/19 09:00 Blood Pressure 194/74 H 02/27/19 09:00 O2 Sat by Pulse Oximetry (%) 93 L 02/27/19 09:41 Constitutional: Yes: No Distress, Calm Cardiovascular: Yes: Regular Rate and Rhythm Respiratory: Yes: Regular, CTA Bilaterally Gastrointestinal: Yes: Normal Bowel Sounds, Soft Musculoskeletal: Yes: WNL Extremities: Yes: WNL Neurological: Yes: Alert, Other Psychiatric: Yes: Alert Labs: CBC, BMP 02/26/19 06:00 02/26/19 06:00 Assessment/Plan Problem List - Problems (1) Aspiration pneumonia Code(s): J69.0 - PNEUMONITIS DUE TO INHALATION OF FOOD AND VOMIT (2) Atelectasis Code(s): J98.11 - ATELECTASIS (3) Dementia Code(s): F03.90 - UNSPECIFIED DEMENTIA WITHOUT BEHAVIORAL DISTURBANCE (4) HLD (hyperlipidemia) Code(s): E78.5 - HYPERLIPIDEMIA, UNSPECIFIED (5) HTN (hypertension) Code(s): I10 - ESSENTIAL (PRIMARY) HYPERTENSION (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
[2019-02-27 20:57] LABS: ANION GAP 6 MMOL/L (8-16); BLOOD UREA NITROGEN 10 mg/dL (7-18); CALCIUM 8.4 mg/dL (8.5-10.1); CHLORIDE 95 mmol/L (98-107); CO2 33 mmol/L (21-32); CREATININE 1.2 mg/dL (0.55-1.3); GLUCOSE,RANDOM 108 mg/dL (74-106); POTASSIUM 3.3 mmol/L (3.5-5.1); SODIUM 134 mmol/L (136-145)
--- NOTE | 2019-02-27 21:44 | PN ---
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, Physician - Current Medication List Current Medications: Active Medications Albuterol/Ipratropium (Duoneb -) 1 amp NEB Q6H PRN PRN Reason: SHORTNESS OF BREATH Amlodipine Besylate (Norvasc -) 2.5 mg PO DAILY [facility] Last Admin: 02/27/19 09:13 Dose: 2.5 mg Carbidopa/Levodopa (Sinemet 25/100 -) 1 each PO BID [facility] Last Admin: 02/27/19 21:27 Dose: 1 each Donepezil HCl (Aricept -) 10 mg PO DAILY [facility] Last Admin: 02/27/19 09:14 Dose: 10 mg Escitalopram Oxalate (Lexapro -) 10 mg PO DAILY [facility] Last Admin: 02/27/19 09:13 Dose: 10 mg Heparin Sodium (Porcine) (Heparin -) 5,000 unit SQ BID [facility] Last Admin: 02/27/19 21:26 Dose: 5,000 unit Hydrochlorothiazide (Hctz -) 25 mg PO DAILY [facility] Last Admin: 02/27/19 09:13 Dose: 25 mg Azithromycin 250 mg/ Dextrose 250 mls @ 250 mls/hr IVPB DAILY [facility] Last Admin: 02/27/19 10:07 Dose: 250 mls/hr Ceftriaxone Sodium 1 gm/ (Dextrose) 50 mls @ 200 mls/hr IVPB DAILY [facility]; Protocol Last Admin: 02/27/19 09:12 Dose: 200 mls/hr Levetiracetam (Keppra Oral Solution -) 750 mg PO BID [facility] Last Admin: 02/27/19 21:27 Dose: 750 mg Quetiapine Fumarate (Seroquel -) 25 mg PO BID [facility] Last Admin: 02/27/19 21:27 Dose: 25 mg Valsartan (Diovan -) 160 mg PO DAILY [facility] Last Admin: 02/27/19 09:13 Dose: 160 mg - Objective Vital Signs: Vital Signs Temperature 98 F 02/27/19 21:25 Pulse Rate 57 L 02/27/19 21:25 Respiratory Rate 18 02/27/19 21:25 Blood Pressure 143/64 02/27/19 21:25 O2 Sat by Pulse Oximetry (%) 93 L 02/27/19 09:41 Labs: CBC, BMP 02/26/19 06:00 02/27/19 20:05 Problem List - Problems (1) Aspiration pneumonia Code(s): J69.0 - PNEUMONITIS DUE TO INHALATION OF FOOD AND VOMIT (2) UTI (urinary tract infection) Code(s): N39.0 - URINARY TRACT INFECTION, SITE NOT SPECIFIED Qualifiers: Urinary tract infection type: site unspecified Hematuria presence: with hematuria Qualified Code(s): N39.0 - Urinary tract infection, site not specified; R31.9 - Hematuria, unspecified (3) Dementia Code(s): F03.90 - UNSPECIFIED DEMENTIA WITHOUT BEHAVIORAL DISTURBANCE (4) HLD (hyperlipidemia) Code(s): E78.5 - HYPERLIPIDEMIA, UNSPECIFIED (5) HTN (hypertension) Code(s): I10 - ESSENTIAL (PRIMARY) HYPERTENSION (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
[2019-02-27] MEDS ORDERED: POTASSIUM CHLORIDE ORAL LIQUID 20 MEQ/15 ML PO ONE (23:45)
[2019-02-28] MEDS ORDERED: PT OWN MED DRAWER 7, Y5N ONE (09:10)
[2019-02-28] MEDS ORDERED: DEXTROSE 5%-WATER - 50 ML IVPB ONE (09:11)
[2019-02-28] MEDS ORDERED: cefTRIAXone SODIUM 1 GM VIAL ONE (09:11)
[2019-02-28] MEDS: levETIRAcetam 500 MG/5 ML ORAL SOLUTION (UNIT-DOSE CUPS) PO SCH ×2 (09:23→21:10)
[2019-02-28] MEDS: CEFTRIAXONE 1 GM in DEXTROSE 5%-WATER - 50 ML IVPB SCH (09:24)
[2019-02-28] MEDS: HEPARIN NA (PORCINE) 5,000 UNITS/ML 1ML VIAL SQ SCH ×2 (09:25→21:10)
[2019-02-28] MEDS: amLODIPine BESYLATE 2.5 MG TABLET (FP) PO SCH (09:25)
[2019-02-28] MEDS: QUEtiapine FUMARATE 25 MG TABLET (FP) PO SCH ×2 (09:25→21:10)
[2019-02-28] MEDS: CARBIDOPA/LEVODOPA 25/100 TABLET (FP) PO SCH ×2 (09:25→21:10)
[2019-02-28] MEDS: DONEPEZIL HCL 10 MG TABLET (FP) PO SCH (09:25)
[2019-02-28] MEDS: HYDROCHLOROTHIAZIDE 25 MG TABLET (FP) PO SCH (09:25)
[2019-02-28] MEDS: ESCITALOPRAM OXALATE 10 MG TABLET (FP) PO SCH (09:25)
[2019-02-28] MEDS: VALSARTAN 160 MG TABLET (UD) PO SCH (09:26)
[2019-02-28] MEDS: AZITHROMYCIN IVPB 250 MG in DEXTROSE 5%-WATER - 250 ML IVPB SCH (10:15)
--- NOTE | 2019-02-28 12:51 | PN ---
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, Physician - Current Medication List Current Medications: Active Medications Amlodipine Besylate (Norvasc -) 2.5 mg PO DAILY [facility] Last Admin: 02/28/19 09:25 Dose: 2.5 mg Carbidopa/Levodopa (Sinemet 25/100 -) 1 each PO BID [facility] Last Admin: 02/28/19 09:25 Dose: 1 each Donepezil HCl (Aricept -) 10 mg PO DAILY [facility] Last Admin: 02/28/19 09:25 Dose: 10 mg Escitalopram Oxalate (Lexapro -) 10 mg PO DAILY [facility] Last Admin: 02/28/19 09:25 Dose: 10 mg Heparin Sodium (Porcine) (Heparin -) 5,000 unit SQ BID [facility] Last Admin: 02/28/19 09:25 Dose: 5,000 unit Hydrochlorothiazide (Hctz -) 25 mg PO DAILY [facility] Last Admin: 02/28/19 09:25 Dose: 25 mg Azithromycin 250 mg/ Dextrose 250 mls @ 250 mls/hr IVPB DAILY [facility] Last Admin: 02/28/19 10:15 Dose: 250 mls/hr Ceftriaxone Sodium 1 gm/ (Dextrose) 50 mls @ 200 mls/hr IVPB DAILY [facility]; Protocol Last Admin: 02/28/19 09:24 Dose: 200 mls/hr Levetiracetam (Keppra Oral Solution -) 750 mg PO BID [facility] Last Admin: 02/28/19 09:23 Dose: 750 mg Quetiapine Fumarate (Seroquel -) 25 mg PO BID [facility] Last Admin: 02/28/19 09:25 Dose: 25 mg Valsartan (Diovan -) 160 mg PO DAILY [facility] Last Admin: 02/28/19 09:26 Dose: 160 mg - Objective Vital Signs: Vital Signs Temperature 98.6 F 02/28/19 09:00 Pulse Rate 57 L 02/28/19 09:00 Respiratory Rate 18 02/28/19 09:00 Blood Pressure 186/67 H 02/28/19 09:00 O2 Sat by Pulse Oximetry (%) 92 L 02/28/19 10:00 Labs: CBC, BMP 02/26/19 06:00 02/27/19 20:05
--- NOTE | 2019-02-28 15:35 | PN ---
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 - Current Medication List Current Medications: Active Medications Amlodipine Besylate (Norvasc -) 2.5 mg PO DAILY [facility] Last Admin: 02/28/19 09:25 Dose: 2.5 mg Carbidopa/Levodopa (Sinemet 25/100 -) 1 each PO BID [facility] Last Admin: 02/28/19 09:25 Dose: 1 each Donepezil HCl (Aricept -) 10 mg PO DAILY [facility] Last Admin: 02/28/19 09:25 Dose: 10 mg Escitalopram Oxalate (Lexapro -) 10 mg PO DAILY [facility] Last Admin: 02/28/19 09:25 Dose: 10 mg Heparin Sodium (Porcine) (Heparin -) 5,000 unit SQ BID [facility] Last Admin: 02/28/19 09:25 Dose: 5,000 unit Hydrochlorothiazide (Hctz -) 25 mg PO DAILY [facility] Last Admin: 02/28/19 09:25 Dose: 25 mg Azithromycin 250 mg/ Dextrose 250 mls @ 250 mls/hr IVPB DAILY [facility] Last Admin: 02/28/19 10:15 Dose: 250 mls/hr Ceftriaxone Sodium 1 gm/ (Dextrose) 50 mls @ 200 mls/hr IVPB DAILY [facility]; Protocol Last Admin: 02/28/19 09:24 Dose: 200 mls/hr Levetiracetam (Keppra Oral Solution -) 750 mg PO BID [facility] Last Admin: 02/28/19 09:23 Dose: 750 mg Quetiapine Fumarate (Seroquel -) 25 mg PO BID [facility] Last Admin: 02/28/19 09:25 Dose: 25 mg Valsartan (Diovan -) 160 mg PO DAILY [facility] Last Admin: 02/28/19 09:26 Dose: 160 mg - Objective Vital Signs: Vital Signs Temperature 98.2 F 02/28/19 13:41 Pulse Rate 59 L 02/28/19 13:41 Respiratory Rate 18 02/28/19 13:41 Blood Pressure 137/62 02/28/19 13:41 O2 Sat by Pulse Oximetry (%) 92 L 02/28/19 10:00 Constitutional: Yes: No Distress HENT: Yes: Atraumatic Neck: Yes: Supple Cardiovascular: Yes: Regular Rate and Rhythm Respiratory: Yes: CTA Bilaterally Extremities: Yes: WNL Neurological: Yes: Alert, Oriented Labs: CBC, BMP 02/26/19 06:00 02/27/19 20:05 Problem List - Problems (1) Aspiration pneumonia Assessment/Plan: continue iv abx id on board swallowing eval Code(s): J69.0 - PNEUMONITIS DUE TO INHALATION OF FOOD AND VOMIT (2) Atelectasis Code(s): J98.11 - ATELECTASIS (3) Alzheimer's dementia Assessment/Plan: on meds Code(s): G30.9 - ALZHEIMER'S DISEASE, UNSPECIFIED; F02.80 - DEMENTIA IN OTH DISEASES CLASSD ELSWHR W/O BEHAVRL DISTURB (4) HLD (hyperlipidemia) Assessment/Plan: on meds Code(s): E78.5 - HYPERLIPIDEMIA, UNSPECIFIED (5) HTN (hypertension) Assessment/Plan: on meds Code(s): I10 - ESSENTIAL (PRIMARY) HYPERTENSION
[2019-03-01] MEDS ORDERED: DEXTROSE 5%-WATER - 50 ML IVPB ONE (09:27)
[2019-03-01] MEDS ORDERED: PT OWN MED DRAWER 7, Y5N ONE ×2 (09:27→21:01)
[2019-03-01] MEDS ORDERED: cefTRIAXone SODIUM 1 GM VIAL ONE (09:27)
[2019-03-01] MEDS: HYDROCHLOROTHIAZIDE 25 MG TABLET (FP) PO SCH (09:34)
[2019-03-01] MEDS: amLODIPine BESYLATE 2.5 MG TABLET (FP) PO SCH (09:35)
[2019-03-01] MEDS: CEFTRIAXONE 1 GM in DEXTROSE 5%-WATER - 50 ML IVPB SCH (09:35)
[2019-03-01] MEDS: VALSARTAN 160 MG TABLET (UD) PO SCH (09:35)
[2019-03-01] MEDS: HEPARIN NA (PORCINE) 5,000 UNITS/ML 1ML VIAL SQ SCH ×2 (09:35→22:06)
[2019-03-01] MEDS: AZITHROMYCIN IVPB 250 MG in DEXTROSE 5%-WATER - 250 ML IVPB SCH (11:16)
[2019-03-01] MEDS: levETIRAcetam 500 MG/5 ML ORAL SOLUTION (UNIT-DOSE CUPS) PO SCH ×2 (11:17→22:06)
[2019-03-01] MEDS: ESCITALOPRAM OXALATE 10 MG TABLET (FP) PO SCH (11:17)
[2019-03-01] MEDS: CARBIDOPA/LEVODOPA 25/100 TABLET (FP) PO SCH ×3 (11:17→18:37)
[2019-03-01] MEDS: QUEtiapine FUMARATE 25 MG TABLET (FP) PO SCH ×2 (11:19→22:06)
[2019-03-01] MEDS: DONEPEZIL HCL 10 MG TABLET (FP) PO SCH (11:20)
--- NOTE | 2019-03-01 11:20 | PN ---
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, Physician History of Present Illness: patient stable non verbal - Current Medication List Current Medications: Active Medications Amlodipine Besylate (Norvasc -) 2.5 mg PO DAILY [facility] Last Admin: 02/28/19 09:25 Dose: 2.5 mg Carbidopa/Levodopa (Sinemet 25/100 -) 1 each PO BID [facility] Last Admin: 02/28/19 21:10 Dose: 1 each Donepezil HCl (Aricept -) 10 mg PO DAILY [facility] Last Admin: 02/28/19 09:25 Dose: 10 mg Escitalopram Oxalate (Lexapro -) 10 mg PO DAILY [facility] Last Admin: 02/28/19 09:25 Dose: 10 mg Heparin Sodium (Porcine) (Heparin -) 5,000 unit SQ BID [facility] Last Admin: 03/01/19 09:35 Dose: 5,000 unit Hydrochlorothiazide (Hctz -) 25 mg PO DAILY [facility] Last Admin: 03/01/19 09:34 Dose: 25 mg Azithromycin 250 mg/ Dextrose 250 mls @ 250 mls/hr IVPB DAILY [facility] Last Admin: 02/28/19 10:15 Dose: 250 mls/hr Ceftriaxone Sodium 1 gm/ (Dextrose) 50 mls @ 200 mls/hr IVPB DAILY [facility]; Protocol Last Admin: 03/01/19 09:35 Dose: 200 mls/hr Levetiracetam (Keppra Oral Solution -) 750 mg PO BID [facility] Last Admin: 02/28/19 21:10 Dose: 750 mg Quetiapine Fumarate (Seroquel -) 25 mg PO BID [facility] Last Admin: 02/28/19 21:10 Dose: 25 mg Valsartan (Diovan -) 160 mg PO DAILY [facility] Last Admin: 03/01/19 09:35 Dose: 160 mg - Objective Vital Signs: Vital Signs Temperature 98.3 F 03/01/19 09:20 Pulse Rate 59 L 03/01/19 09:20 Respiratory Rate 20 03/01/19 09:20 Blood Pressure 148/70 03/01/19 09:20 O2 Sat by Pulse Oximetry (%) 92 L 02/28/19 21:00 Constitutional: Yes: No Distress, Calm Cardiovascular: Yes: Regular Rate and Rhythm Respiratory: Yes: Regular, CTA Bilaterally Gastrointestinal: Yes: Normal Bowel Sounds, Soft Musculoskeletal: Yes: WNL Extremities: Yes: WNL Neurological: Yes: Alert Psychiatric: Yes: Alert Labs: CBC, BMP 02/26/19 06:00 02/27/19 20:05 Assessment/Plan Problem List - Problems (1) Aspiration pneumonia Code(s): J69.0 - PNEUMONITIS DUE TO INHALATION OF FOOD AND VOMIT (2) Atelectasis Code(s): J98.11 - ATELECTASIS (3) Dementia Code(s): F03.90 - UNSPECIFIED DEMENTIA WITHOUT BEHAVIORAL DISTURBANCE (4) HLD (hyperlipidemia) Code(s): E78.5 - HYPERLIPIDEMIA, UNSPECIFIED (5) HTN (hypertension) Code(s): I10 - ESSENTIAL (PRIMARY) HYPERTENSION (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 will deescalte abx by tomorrow
--- NOTE | 2019-03-01 11:41 | PN ---
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 (short form) - Note 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: PULMONARY Pt nonverbal. No fevers recorded. Vital Signs Period Temp Pulse Resp BP Sys/Rowland Pulse Ox Last 24 Hr 98.2 F-98.5 F 56-60 18-20 137-163/62-77 92 Gen: NAD at rest Heart: RRR Lung: decreased breath sounds at the bases Abd: soft, nontender Ext: no edema CBC, BMP 02/26/19 06:00 02/27/19 20:05 Active Medications Amlodipine Besylate (Norvasc -) 2.5 mg PO DAILY [facility] Last Admin: 03/01/19 09:35 Dose: 2.5 mg Carbidopa/Levodopa (Sinemet 25/100 -) 1 each PO BID [facility] Last Admin: 03/01/19 11:17 Dose: 1 each Donepezil HCl (Aricept -) 10 mg PO DAILY [facility] Last Admin: 03/01/19 11:20 Dose: 10 mg Escitalopram Oxalate (Lexapro -) 10 mg PO DAILY [facility] Last Admin: 03/01/19 11:17 Dose: 10 mg Heparin Sodium (Porcine) (Heparin -) 5,000 unit SQ BID [facility] Last Admin: 03/01/19 09:35 Dose: 5,000 unit Hydrochlorothiazide (Hctz -) 25 mg PO DAILY [facility] Last Admin: 03/01/19 09:34 Dose: 25 mg Azithromycin 250 mg/ Dextrose 250 mls @ 250 mls/hr IVPB DAILY [facility] Last Admin: 03/01/19 11:16 Dose: 250 mls/hr Ceftriaxone Sodium 1 gm/ (Dextrose) 50 mls @ 200 mls/hr IVPB DAILY [facility]; Protocol Last Admin: 03/01/19 09:35 Dose: 200 mls/hr Levetiracetam (Keppra Oral Solution -) 750 mg PO BID [facility] Last Admin: 03/01/19 11:17 Dose: 750 mg Quetiapine Fumarate (Seroquel -) 25 mg PO BID [facility] Last Admin: 03/01/19 11:19 Dose: 25 mg Valsartan (Diovan -) 160 mg PO DAILY [facility] Last Admin: 03/01/19 09:35 Dose: 160 mg A/P Pneumonia HTN Hyperlipidemia h/o CVA Seizure Disorder - continue antibiotics - O2 to keep SpO2 >90% - aspiration precautions - DVT prophylaxis
--- NOTE | 2019-03-01 11:47 | PN ---
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 (short form) - Note 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: NEUROLOGY PROGRESS: Events reviewed and discussed with nursing staff. at bedside. Continues on Azithromycin and ceftriaxone for + UTI. BP's noted to be elevated despite current regimen and norvasc 2.5 mg qd added for further BP control. Currently on minced diet, thin liquids with variable intake. 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 In diaper. NEURO: awake, oriented to name only. Follows one step commands. Sparse speech. hypophonic. +glabella, snout, suck, grasps Reduced rapid tongue. Gag ok. Motor: Spastic hemiparesis on R. Dystonic posturing of R foot. + cogwheeling. Hyperreflexic on R > L. Absent AJ's. Plantars silent. Feels pinch in all fours Impression: 1. 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 Seizure Disorder Suggest: Continue antibiotics and hydration Continue Sinemet 25/100 to TID @ 7, 12, 5 Assist with feeds Continue Donepezil 10 mg qd Continue Keppra 750 q 12 hrs Bedside PT for contractures Thank you very much, Grupo Medina MD
--- NOTE | 2019-03-01 13:19 | PN ---
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 DRIVER - Note 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: Selected Entries 02/24/19 02/24/19 02/24/19 02:00 07:45 11:44 Breakfast 75% Lunch Supper Temperature 99.6 F 97.7 F 02/24/19 02/24/19 02/25/19 14:41 18:49 06:34 Breakfast Lunch 75% Supper 50% Temperature 99.3 F 97.9 F 98.3 F Laboratory Tests 02/23/19 09:20 WBC 10.0 Selected Entries 02/27/19 02/27/19 02/27/19 10:30 12:54 19:02 Breakfast 25% Diet Tolerated Poor Poor Fair Lunch 25% Supper 75% Temperature 02/28/19 02/28/19 02/28/19 06:00 09:00 13:41 Breakfast Diet Tolerated Lunch Supper Temperature 97.9 F 98.6 F 98.2 F 02/28/19 02/28/19 03/01/19 17:30 18:12 06:00 Breakfast Diet Tolerated Well Lunch Supper 75% Temperature 98.5 F 98.2 F 03/01/19 03/01/19 09:20 09:54 Breakfast 25% Diet Tolerated Poor Lunch Supper Temperature 98.3 F Laboratory Tests 02/26/19 06:00 WBC 6.3 Pt on dys minced diet and thin liquids. Educated staff on compensatory swallowing strategies. Feed only when alert.Small Bites, HOB elevated, Chin Tuck/Down, Clear Pocket Food, Trial Feedings, Safe Rate, 1/2 tsp. at a time, alternate food with sip of liquid.
--- NOTE | 2019-03-01 15:14 | PN ---
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 (short form) - Note 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: s: nonverbal, appears comfortable, no events Vital Signs Period Temp Pulse Resp BP Sys/Rowland Pulse Ox Last 24 Hr 98.2 F-98.5 F 56-62 18-20 124-163/51-77 92 Constitutional: Yes: No Distress, Calm Eyes: Yes: Conjunctiva Clear Respiratory: Yes: Regular, CTA Bilaterally Gastrointestinal: Yes: Normal Bowel Sounds, Soft Cardiovascular: Yes: Regular Rate and Rhythm JVD: No Heart Sounds: Yes: S1, S2 Murmur: No: Systolic Murmur Musculoskeletal: No: Back Pain Extremities: No: Cold Edema: No Peripheral Pulses: 2+ Left Doralis Pedis, 2+ Right Dorsalis Pedis Integumentary: No: Jaundice Neurological: Yes: Alert Psychiatric: No: Agitated Current Medications Amlodipine Besylate (Norvasc -) 2.5 mg PO DAILY [facility] Last Admin: 03/01/19 09:35 Dose: 2.5 mg Carbidopa/Levodopa (Sinemet 25/100 -) 1 each PO 0700,1200,1700 [facility] Last Admin: 03/01/19 13:00 Dose: Not Given Donepezil HCl (Aricept -) 10 mg PO DAILY [facility] Last Admin: 03/01/19 11:20 Dose: 10 mg Escitalopram Oxalate (Lexapro -) 10 mg PO DAILY [facility] Last Admin: 03/01/19 11:17 Dose: 10 mg Heparin Sodium (Porcine) (Heparin -) 5,000 unit SQ BID [facility] Last Admin: 03/01/19 09:35 Dose: 5,000 unit Hydrochlorothiazide (Hctz -) 25 mg PO DAILY [facility] Last Admin: 03/01/19 09:34 Dose: 25 mg Azithromycin 250 mg/ Dextrose 250 mls @ 250 mls/hr IVPB DAILY [facility] Last Admin: 03/01/19 11:16 Dose: 250 mls/hr Ceftriaxone Sodium 1 gm/ (Dextrose) 50 mls @ 200 mls/hr IVPB DAILY [facility]; Protocol Last Admin: 03/01/19 09:35 Dose: 200 mls/hr Levetiracetam (Keppra Oral Solution -) 750 mg PO BID [facility] Last Admin: 03/01/19 11:17 Dose: 750 mg Quetiapine Fumarate (Seroquel -) 25 mg PO BID [facility] Last Admin: 03/01/19 11:19 Dose: 25 mg Valsartan (Diovan -) 160 mg PO DAILY [facility] Last Admin: 03/01/19 09:35 Dose: 160 mg Assessment/Plan Echo 06/2018 nl LV/RV function, mild AR, tr MR EKG:sinus, nl intervals, no ischemic changes CXR: CHRIS infiltrate CT chest: complete opacification of L lower lobe bronchus echo 02/2019 nl LV function, grade I diastolic dysfunction, nl RV 86F h/o CVA (residual RUE and RLE weakness), PD (nonverbal), HTN, HLD, epilepsy p/w chest pain PNA - on abx per primary chest pain - patient unable to give further history, appears comfortable - trop neg x 4, EKG no ischemic changes - BNP 604, however patient appears euvolemic currently - echo nl LV function - no further episodes noted alt mental status - may have been in setting of PNA - now at baseline - neuro following parkinson's dz, hx CVA - manage per neuro HTN - bp elevated, norvasc 2.5 qd added HLD - cont statin
--- NOTE | 2019-03-01 23:24 | PN ---
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, Physician History of Present Illness: No new complaints - Current Medication List Current Medications: Active Medications Amlodipine Besylate (Norvasc -) 2.5 mg PO DAILY [facility] Last Admin: 03/01/19 09:35 Dose: 2.5 mg Carbidopa/Levodopa (Sinemet 25/100 -) 1 each PO 0700,1200,1700 [facility] Last Admin: 03/01/19 18:37 Dose: 1 each Donepezil HCl (Aricept -) 10 mg PO DAILY [facility] Last Admin: 03/01/19 11:20 Dose: 10 mg Escitalopram Oxalate (Lexapro -) 10 mg PO DAILY [facility] Last Admin: 03/01/19 11:17 Dose: 10 mg Heparin Sodium (Porcine) (Heparin -) 5,000 unit SQ BID [facility] Last Admin: 03/01/19 22:06 Dose: 5,000 unit Hydrochlorothiazide (Hctz -) 25 mg PO DAILY [facility] Last Admin: 03/01/19 09:34 Dose: 25 mg Azithromycin 250 mg/ Dextrose 250 mls @ 250 mls/hr IVPB DAILY [facility] Last Admin: 03/01/19 11:16 Dose: 250 mls/hr Ceftriaxone Sodium 1 gm/ (Dextrose) 50 mls @ 200 mls/hr IVPB DAILY [facility]; Protocol Last Admin: 03/01/19 09:35 Dose: 200 mls/hr Levetiracetam (Keppra Oral Solution -) 750 mg PO BID [facility] Last Admin: 03/01/19 22:06 Dose: 750 mg Quetiapine Fumarate (Seroquel -) 25 mg PO BID [facility] Last Admin: 03/01/19 22:06 Dose: 25 mg Valsartan (Diovan -) 160 mg PO DAILY [facility] Last Admin: 03/01/19 09:35 Dose: 160 mg - Objective Vital Signs: Vital Signs Temperature 97.8 F 03/01/19 17:49 Pulse Rate 53 L 03/01/19 22:00 Respiratory Rate 18 03/01/19 22:00 Blood Pressure 143/53 L 03/01/19 22:00 O2 Sat by Pulse Oximetry (%) 94 L 03/01/19 10:05 Neck: Yes: WNL, Supple Cardiovascular: Yes: WNL, Regular Rate and Rhythm Respiratory: Yes: WNL, Regular, CTA Bilaterally Gastrointestinal: Yes: WNL, Normal Bowel Sounds, Soft Labs: CBC, BMP 02/26/19 06:00 02/27/19 20:05 Problem List - Problems (1) Aspiration pneumonia Assessment/Plan: Cont IV antibxs Swallow eval noted Aspiration precautions Possible change antibx in am Code(s): J69.0 - PNEUMONITIS DUE TO INHALATION OF FOOD AND VOMIT (2) UTI (urinary tract infection) Assessment/Plan: Due to Klebsiella Cont IV ceftriaxone Code(s): N39.0 - URINARY TRACT INFECTION, SITE NOT SPECIFIED Qualifiers: Urinary tract infection type: site unspecified Hematuria presence: with hematuria Qualified Code(s): N39.0 - Urinary tract infection, site not specified; R31.9 - Hematuria, unspecified (3) Dementia Assessment/Plan: Cont aricept Code(s): F03.90 - UNSPECIFIED DEMENTIA WITHOUT BEHAVIORAL DISTURBANCE (4) HLD (hyperlipidemia) Code(s): E78.5 - HYPERLIPIDEMIA, UNSPECIFIED (5) HTN (hypertension) Assessment/Plan: BP stable Cont Hctz/norvasc/diovan Code(s): I10 - ESSENTIAL (PRIMARY) HYPERTENSION (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 DISORDER DUE TO KNOWN PHYSIOLOGICAL CONDITION (7) Parkinsons Assessment/Plan: Cont sinemet Code(s): G20 - PARKINSON'S DISEASE (8) Seizure disorder Assessment/Plan: Cont keppra Code(s): G40.909 - EPILEPSY, UNSP, NOT INTRACTABLE, WITHOUT STATUS EPILEPTICUS
[2019-03-02] MEDS: CARBIDOPA/LEVODOPA 25/100 TABLET (FP) PO SCH ×3 (06:15→17:27)
[2019-03-02 07:55] LABS: BASO % 1.3 % (0-2.0); EOS % 1.3 % (0-4.5); HEMATOCRIT 35.9 % (32.4-45.2); HEMOGLOBIN 12.2 GM/dL (10.7-15.3); LYMPH % 17.1 % (8-40); MCH 29.3 pg (25.7-33.7); MEAN CELL VOLUME 86.4 fl (80-96); MONO % 10.1 % (3.8-10.2); NEUT % 70.2 % (42.8-82.8); PLATELET COUNT 570 K/MM3 (134-434); RBC 4.16 M/mm3 (3.60-5.2); RDW 13.9 % (11.6-15.6); WHITE BLOOD COUNT 6.8 K/mm3 (4.0-10.0)
[2019-03-02 08:21] LABS: ALBUMIN 2.6 g/dl (3.4-5.0); ALK PHOS 78 U/L (45-117); ANION GAP 7 MMOL/L (8-16); BILIRUBIN,TOTAL 0.3 mg/dL (0.2-1); BLOOD UREA NITROGEN 10 mg/dL (7-18); CALCIUM 9.1 mg/dL (8.5-10.1); CHLORIDE 96 mmol/L (98-107); CO2 30 mmol/L (21-32); GLUCOSE,RANDOM 92 mg/dL (74-106); POTASSIUM 3.7 mmol/L (3.5-5.1); SGOT/AST 49 U/L (15-37); SGPT/ALT < 6 U/L (13-61); SODIUM 134 mmol/L (136-145); TOT PROT 6.4 g/dl (6.4-8.2)
--- NOTE | 2019-03-02 10:37 | PN ---
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 (short form) - Note 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: PULMONARY Pt nonverbal. No fevers recorded. Vital Signs Period Temp Pulse Resp BP Sys/[place]land Pulse Ox Last 24 Hr 97.8 F-98.8 F 53-66 18-20 124-158/51-65 94 Gen: NAD at rest Heart: RRR Lung: decreased breath sounds at the bases Abd: soft, nontender Ext: no edema CBC, BMP 03/02/19 07:15 03/02/19 07:15 Active Medications Amlodipine Besylate (Norvasc -) 2.5 mg PO DAILY [facility] Last Admin: 03/01/19 09:35 Dose: 2.5 mg Carbidopa/Levodopa (Sinemet 25/100 -) 1 each PO 0700,1200,1700 [facility] Last Admin: 03/02/19 06:15 Dose: 1 each Donepezil HCl (Aricept -) 10 mg PO DAILY [facility] Last Admin: 03/01/19 11:20 Dose: 10 mg Escitalopram Oxalate (Lexapro -) 10 mg PO DAILY [facility] Last Admin: 03/01/19 11:17 Dose: 10 mg Hydrochlorothiazide (Hctz -) 25 mg PO DAILY [facility] Last Admin: 03/01/19 09:34 Dose: 25 mg Levetiracetam (Keppra Oral Solution -) 750 mg PO BID [facility] Last Admin: 03/01/19 22:06 Dose: 750 mg Quetiapine Fumarate (Seroquel -) 25 mg PO BID [facility] Last Admin: 03/01/19 22:06 Dose: 25 mg Valsartan (Diovan -) 160 mg PO DAILY [facility] Last Admin: 03/01/19 09:35 Dose: 160 mg A/P Pneumonia UTI HTN Hyperlipidemia h/o CVA Parkinsons Seizure Disorder - completed antibiotics - O2 to keep SpO2 >90% - aspiration precautions - DVT prophylaxis
[2019-03-02] MEDS: DONEPEZIL HCL 10 MG TABLET (FP) PO SCH (11:15)
[2019-03-02] MEDS: amLODIPine BESYLATE 2.5 MG TABLET (FP) PO SCH (11:16)
[2019-03-02] MEDS: ESCITALOPRAM OXALATE 10 MG TABLET (FP) PO SCH (11:16)
[2019-03-02] MEDS: VALSARTAN 160 MG TABLET (UD) PO SCH (11:16)
[2019-03-02] MEDS: HYDROCHLOROTHIAZIDE 25 MG TABLET (FP) PO SCH (11:16)
[2019-03-02] MEDS: QUEtiapine FUMARATE 25 MG TABLET (FP) PO SCH (11:17)
[2019-03-02] MEDS: levETIRAcetam 500 MG/5 ML ORAL SOLUTION (UNIT-DOSE CUPS) PO SCH (11:20)
--- NOTE | 2019-03-02 11:44 | PN ---
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, CRM TECHNICAL LEAD - Note 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: Selected Entries 03/02/19 03/02/19 06:00 11:13 Breakfast 50% Temperature 98.8 F Laboratory Tests 03/02/19 07:15 WBC 6.8 Pt on dys minced diet and thin liquids. Pt accepts more by mouth when her feeds her. Feed only when alert.Small Bites, HOB elevated, Chin Tuck/Down, Clear Pocket Food, Trial Feedings, Safe Rate, 1/2 tsp. at a time, alternate food with sip of liquid. Pending STR placement.
--- NOTE | 2019-03-02 13:26 | PN ---
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, Physician History of Present Illness: stable off of abx non verbal - Current Medication List Current Medications: Active Medications Amlodipine Besylate (Norvasc -) 2.5 mg PO DAILY [facility] Last Admin: 03/02/19 11:16 Dose: 2.5 mg Carbidopa/Levodopa (Sinemet 25/100 -) 1 each PO 0700,1200,1700 [facility] Last Admin: 03/02/19 06:15 Dose: 1 each Donepezil HCl (Aricept -) 10 mg PO DAILY [facility] [place] Last Admin: 03/02/19 11:15 Dose: 10 mg Escitalopram Oxalate (Lexapro -) 10 mg PO DAILY [facility] Last Admin: 03/02/19 11:16 Dose: 10 mg Hydrochlorothiazide (Hctz -) 25 mg PO DAILY [facility] Last Admin: 03/02/19 11:16 Dose: 25 mg Levetiracetam (Keppra Oral Solution -) 750 mg PO BID [facility] Last Admin: 03/02/19 11:20 Dose: 750 mg Quetiapine Fumarate (Seroquel -) 25 mg PO BID [facility] [place] Last Admin: 03/02/19 11:17 Dose: 25 mg Valsartan (Diovan -) 160 mg PO DAILY [facility] [place] Last Admin: 03/02/19 11:16 Dose: 160 mg - Objective Vital Signs: Vital Signs Temperature 98.8 F 03/02/19 06:00 Pulse Rate 66 03/02/19 06:00 Respiratory Rate 18 03/02/19 06:00 Blood Pressure 158/65 03/02/19 06:00 O2 Sat by Pulse Oximetry (%) 94 L 03/01/19 21:00 Constitutional: Yes: No Distress, Calm Cardiovascular: Yes: Regular Rate and Rhythm Respiratory: Yes: Regular, CTA Bilaterally Gastrointestinal: Yes: Normal Bowel Sounds, Soft Musculoskeletal: Yes: WNL Extremities: Yes: WNL Neurological: Yes: Alert, Oriented Psychiatric: Yes: Alert, Oriented Labs: CBC, BMP 03/02/19 07:15 03/02/19 07:15 Assessment/Plan Problem List - Problems (1) Aspiration pneumonia Code(s): J69.0 - PNEUMONITIS DUE TO INHALATION OF FOOD AND VOMIT (2) Atelectasis Code(s): J98.11 - ATELECTASIS (3) Dementia Code(s): F03.90 - UNSPECIFIED DEMENTIA WITHOUT BEHAVIORAL DISTURBANCE (4) HLD (hyperlipidemia) Code(s): E78.5 - HYPERLIPIDEMIA, UNSPECIFIED (5) HTN (hypertension) Code(s): I10 - ESSENTIAL (PRIMARY) HYPERTENSION (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
--- NOTE | 2019-03-02 14:50 | PN ---
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 (short form) - Note 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: s: nonverbal, appears comfortable Vital Signs Period Temp Pulse Resp BP Sys/[place] Pulse Ox Last 24 Hr 97.8 F-98.8 F 53-66 18-18 143-158/53-65 94 Constitutional: Yes: No Distress, Calm Eyes: Yes: Conjunctiva Clear Respiratory: Yes: Regular, CTA Bilaterally Gastrointestinal: Yes: Normal Bowel Sounds, Soft Cardiovascular: Yes: Regular Rate and Rhythm JVD: No Heart Sounds: Yes: S1, S2 Murmur: No: Systolic Murmur Musculoskeletal: No: Back Pain Extremities: No: Cold Edema: No Peripheral Pulses: 2+ Left Doralis Pedis, 2+ Right Dorsalis Pedis Integumentary: No: Jaundice Neurological: Yes: Alert Psychiatric: No: Agitated Current Medications Generic Name Dose Route Start Last Admin Trade Name Freq PRN Reason Stop Dose Admin Amlodipine Besylate 2.5 mg 02/27/19 10:00 03/02/19 11:16 Norvasc - PO 2.5 mg DAILY [facility] Administration Carbidopa/Levodopa 1 each 03/01/19 12:00 03/02/19 13:28 Sinemet 25/100 - PO 1 each 0700,1200,1700 [facility] Administration Donepezil HCl 10 mg 02/23/19 10:00 03/02/19 11:15 Aricept - PO 10 mg DAILY [facility] Administration Escitalopram Oxalate 10 mg 02/23/19 10:00 03/02/19 11:16 Lexapro - PO 10 mg DAILY [facility] Administration Hydrochlorothiazide 25 mg 02/23/19 10:00 03/02/19 11:16 Hctz - PO 25 mg DAILY [facility] Administration Levetiracetam 750 mg 02/25/19 11:24 03/02/19 11:20 Keppra Oral Solution - PO 750 mg BID [facility] Administration Quetiapine Fumarate 25 mg 02/23/19 10:00 03/02/19 11:17 Seroquel - PO 25 mg BID [facility] Administration Valsartan 160 mg 02/23/19 10:00 03/02/19 11:16 Diovan - PO 160 mg DAILY [facility] Administration CBC, BMP 03/02/19 07:15 03/02/19 07:15 Assessment/Plan Echo 06/2018 nl LV/RV function, mild AR, tr MR EKG:sinus, nl intervals, no ischemic changes CXR: CHRIS infiltrate CT chest: complete opacification of L lower lobe bronchus echo 02/2019 nl LV function, grade I diastolic dysfunction, nl RV 86F h/o CVA (residual RUE and RLE weakness), PD (nonverbal), HTN, HLD, epilepsy p/w chest pain chest pain - patient unable to give further history, appears comfortable - trop neg x 4, EKG no ischemic changes - BNP 604, however patient appears euvolemic currently - echo nl LV function PNA - resolved alt mental status - may be in setting of PNA - at baseline per family member - neuro following parkinson's dz, hx CVA - manage per neuro HTN - cont current meds HLD - cont statin
[2019-03-02 15:49] VITALS: BP 137/63; PULSE 62; TEMP 98.3
== END 2019-03-02 18:36 | DRG 177 ==
LOC: JER 14:45 → JERBED 18:13 → J5S 02-23 10:33
PROVIDERS: ADMIT Internal Medicine; ATTEND Internal Medicine
DX: J69.0 Pneumonitis due to inhalation of food and vomit (principal); G92 Toxic encephalopathy; G81.11 Spastic hemiplegia affecting right dominant side; N39.0 Urinary tract infection, site not specified; J98.11 Atelectasis; G20 Parkinson's disease; G40.909 Epilepsy, unspecified, not intractable, without status epilepticus; G30.9 Alzheimer's disease, unspecified; F02.80 Dementia in other diseases classified elsewhere, unspecified severity, without behavioral disturbance, psychotic disturbance, mood disturbance, and anxiety; E78.5 Hyperlipidemia, unspecified; F32.9 Major depressive disorder, single episode, unspecified; Z74.01 Bed confinement status
CPT/HCPCS: 36415; 70450-TC; 71045-TC-FY; 71250-TC; 80048; 80053; 81003; 82550; 83735; 83880; 84100; 84484; 85025; 87086; 87186; 93005; 93010; 93306-TC; 97116-GP; 97161-GP; 99285-25; J1644

== ENCOUNTER 2019-07-06 21:14 | Inpatient (IN) | payer OTHER ==
[2019-07-06] MEDS ORDERED: RAPID SEQUENCE INTUBATION KIT NR ONE (21:20)
[2019-07-06] MEDS ORDERED: FENTANYL INJECTION 500 MCG in DEXTROSE 5%-WATER - 90 ML IVPB SCH (21:45)
[2019-07-06] MEDS ORDERED: SODIUM CHLORIDE 1,000 ML IV SCH ×2 (21:45)
[2019-07-06] MEDS ORDERED: fentaNYL CITRATE 250 MCG/5 ML VIAL ONE (21:48)
[2019-07-06] MEDS ORDERED: VANCOMYCIN 1,000 MG in DEXTROSE 5%-WATER - 250 ML IVPB ONE (21:49)
[2019-07-06] MEDS ORDERED: levETIRAcetam 500 MG/5 ML INJECTION VIAL IVPB ONE ×2 (21:49→22:33)
[2019-07-06] MEDS ORDERED: PIPERACILLIN/TAZOB 3.375 GM 3.375 GM in DEXTROSE 5%-WATER - 50 ML IVPB ONE (21:50)
[2019-07-06] MEDS ORDERED: PIPERACILLIN/TAZOB 3.375 GM 3.375 GM/50 ML BAG IVPB ONE (21:58)
[2019-07-06 22:03] LABS: HEMATOCRIT 34.6 % (32.4-45.2); HEMOGLOBIN 11.4 GM/dL (10.7-15.3); MCHC 32.9 g/dl (32.0-36.0); MEAN CELL VOLUME 91.3 fl (80-96); RBC 3.79 M/mm3 (3.60-5.2); RDW 15.9 % (11.6-15.6); WHITE BLOOD COUNT 13.4 K/mm3 (4.0-10.0)
[2019-07-06 22:04] LABS: BASO % 0.6 % (0-2.0); EOS % 1.2 % (0-4.5); LYMPH % 6.1 % (8-40); MONO % 4.6 % (3.8-10.2); NEUT % 87.5 % (42.8-82.8)
[2019-07-06 22:05] LABS: EPI CELLS 2.4 /HPF (0-5/HPF); HYALINE CASTS 6 /lpf (0-8); MEAN PLT VOLUME 8.7 fl (7.5-11.1); PH,URINE 6.5 (5.0-8.0); PLATELET COUNT 354 K/MM3 (134-434); URINE APPEARANCE CLEAR; URINE BACTERIA 0.5 /hpf (NEGATIVE); URINE BILIRUBIN NEGATIVE (NEGATIVE); URINE COLOR YELLOW; URINE GLUCOSE (UA) NEGATIVE (NEGATIVE); URINE KETONE NEGATIVE (NEGATIVE); URINE LEUK ESTERASE NEGATIVE (NEGATIVE); URINE NITRITE NEGATIVE (NEGATIVE); URINE PROTEIN 3+ (NEGATIVE); URINE RBC 3 /hpf (0-4); URINE WBC 1 /hpf (0-5)
[2019-07-06 22:11] LABS: INR 0.96 (0.83-1.09); PROTHROMBIN TIME (PATIENT) 11.3 SEC (9.7-13.0)
[2019-07-06 22:24] LABS: ALBUMIN 2.8 g/dl (3.4-5.0); BILIRUBIN,TOTAL 0.5 mg/dL (0.2-1); BLOOD UREA NITROGEN 11.9 mg/dL (7-18); CALCIUM 9.1 mg/dL (8.5-10.1); CREATININE 1.2 mg/dL (0.55-1.3); POTASSIUM 3.1 mmol/L (3.5-5.1); TOT PROT 6.1 g/dl (6.4-8.2)
--- NOTE | 2019-07-06 22:31 | PDOC ---
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 Pt is accompanied by her and sons. The family states they noticed L-sided facial droop, which started just shortly before a generalized tonic-clonic seizure which lasted for a few minutes. Pt was in her usual state of health (mostly non-verbal at baseline, requires help with all activities). Pt cannot provide ROS, but family denies any recent fevers/chills, syncope, vomiting, urinary symptoms, diarrhea/ constipation. Allergies: NKDA PCP: William Martinez Neuro: Carol Social: No cigarette, alcohol, or drug use. No recent travel or sick contacts. Surgical: no relevant history. Family: no relevant history. Son (Dat): [phone] 07/06/19 22:13 07/06/19 22:50 07/06/19 23:51 <Gabriella Edmonds - Last Filed: 07/06/19 23:49> <Sam Elliott - Last Filed: 07/07/19 00:12> - General Chief Complaint: Seizure Stated Complaint: SEIZURE Time Seen by Provider: 07/06/19 21:38 Past History - Travel Traveled outside of the country in the last 30 days: No Close contact w/someone who was outside of country & ill: No - Past Medical History Anemia: No Asthma: No Cancer: No Cardiac Disorders: No CVA: Yes (rt hemiparesis) COPD: No CHF: No Dementia: Yes Diabetes: No GI Disorders: No Disorders: No HTN: Yes Hypercholesterolemia: Yes Liver Disease: No Seizures: Yes (2018) Thyroid Disease: No - Surgical History Abdominal Surgery: No Appendectomy: No Cardiac Surgery: No Cholecystectomy: No Lung Surgery: No Neurologic Surgery: No Orthopedic Surgery: Yes (lft hip replacement 2017) - Immunization History Immunization Up to Date: (Unknown) - Suicide/Smoking/Psychosocial Hx Smoking Status: No Smoking History: Unknown if ever smoked Have you smoked in the past 12 months: No Number of Cigarettes Smoked Daily: 0 Information on smoking cessation initiated: No Hx Alcohol Use: No Drug/Substance Use Hx: No Substance Use Type: None <Gabriella Edmonds - Last Filed: 07/06/19 23:49> <Sam Elliott - Last Filed: 07/07/19 00:12> - Past Medical History Allergies/Adverse Reactions: Allergies Allergy/AdvReac Type Severity Reaction Status Date / Time No Known Allergies Allergy Verified 07/06/19 21:45 Home Medications: Ambulatory Orders Carbidopa/Levodopa 25/100 [Sinemet 25/100 -] 1 each PO TID 07/05/18 Donepezil HCl [Aricept] 10 mg PO DAILY 07/05/18 Escitalopram Oxalate [Lexapro -] 10 mg PO DAILY 07/05/18 Olmesartan Medoxomil [Benicar] 20 mg PO DAILY 07/05/18 Quetiapine Fumarate [Seroquel -] 25 mg PO BID 07/05/18 levETIRAcetam [Keppra -] 500 mg PO BID 07/05/18 Acetaminophen [Tylenol .Regular Strength -] 650 mg PO Q6H PRN tablet 07/12/18 Carbidopa/Levodopa 25/100 [Sinemet 25/100 -] 1 each PO BID tablet 07/12/18 Donepezil HCl [Aricept -] 10 mg PO DAILY tablet 07/12/18 levETIRAcetam [Keppra -] 750 mg PO BID tablet 07/12/18 Hydrochlorothiazide [Hctz -] 25 mg PO DAILY #30 tablet 07/14/18 Review of Systems - Review of Systems Able to Perform ROS?: No (intubated) <Gabriella Edmonds - Last Filed: 07/06/19 23:49> *Physical Exam - Vital Signs Last Vital Signs Temp Pulse Resp BP Pulse Ox 98.9 F 122 H 12 156/104 H 100 07/06/19 21:20 07/06/19 21:20 07/06/19 21:20 07/06/19 21:20 07/06/19 22:06 - Physical Exam Comments: HTN, tachycardic, pt with ambubag for ventilation on presentation by EMS. Pt with thin body habitus. Pt unresponsive. Does not respond to painful stimuli. No midline spinal tenderness, step-offs, or crepitus. Head normocephalic, atraumatic. Eyes PERRLA, EOMI. Oropharynx without erythema or exudates, no LAD b/l. No upper teeth. Poor dentition. No nasal congestion, hearing intact. Clear heart sounds, S1/S2, no JVD, b/l pedal edema, or heart murmur. Clear lung sounds, no respiratory distress, wheezes, crackles, or accessory muscle use. No abdominal or CVA tenderness to palpation, no rebound, no guarding. Abdomen soft, non-distended, and with normoactive bowel sounds. Skin without jaundice or rash. 07/06/19 23:52 <Gabriella Edmonds - Last Filed: 07/06/19 23:49> - Vital Signs Last Vital Signs Temp Pulse Resp BP Pulse Ox 97.7 F 75 14 163/55 L 100 07/06/19 23:50 07/07/19 00:06 07/07/19 00:06 07/07/19 00:06 07/06/19 22:49 <Sam Elliott - Last Filed: 07/07/19 00:12> Procedures - Intubation Time of Intubation: 21:10 Intubation Method: orotracheal Blade used: Mac Tube Size (Fr): 7.0 Medications: Etomidate, Rocuronium Tube position @ lip (cm): 24 Tube position confirmed by: Direct visualization, CO2 detector, Chest x-ray, Breath sounds Breath Sounds after Intubation: equal Intubation Complications: no complications Post Intubation Xray: Yes <Gabriella Edmonds - Last Filed: 07/06/19 23:49> ED Treatment Course - LABORATORY CBC & Chemistry Diagram: 07/06/19 21:40 07/06/19 21:40 - ADDITIONAL ORDERS Additional order review: Laboratory Results 07/06/19 21:40 Urine Color Yellow Urine Appearance Clear Urine pH 6.5 Ur Specific [place] 1.012 Urine Protein 3+ H Urine Glucose (UA) Negative Urine Ketones Negative Urine Blood Trace Urine Nitrite Negative Urine Bilirubin Negative Urine Urobilinogen 1.0 Ur Leukocyte Esterase Negative Urine WBC (Auto) 1 Urine RBC (Auto) 3 Urine Casts (Auto) 6 U Epithel Cells (Auto) 2.4 Urine Bacteria (Auto) 0.5 07/06/19 21:40 RBC 3.79 MCV 91.3 MCHC 32.9 RDW 15.9 H D MPV 8.7 Neutrophils % 87.5 H D Lymphocytes % 6.1 L D Monocytes % 4.6 Eosinophils % 1.2 Basophils % 0.6 <Gabriella Edmonds - Last Filed: 07/06/19 23:49> - LABORATORY CBC & Chemistry Diagram: 07/06/19 21:40 07/06/19 21:40 - ADDITIONAL ORDERS Additional order review: Laboratory Results 07/06/19 07/06/19 07/06/19 22:30 22:30 21:40 PT with INR INR Anticoagulation Therapy No Result Required. Puncture Site Right radial ABG pH 7.42 ABG pCO2 at Pt Temp 33.6 L ABG pO2 at Pt Temp 104 H ABG HCO3 21.2 L ABG O2 Sat (Measured) 98.2 H ABG O2 Content No Result Required. ABG Base Excess -2.3 L Carlos Test No Result Required. Carboxyhemoglobin 0.9 Methemoglobin < 1.0 O2 Delivery Device Mech vent Oxygen Flow Rate 50% Vent Mode A/c Vent Rate 14 Mechanical Rate No Result Required. PEEP 5.0 Pressure Support Vent 350 Sodium Potassium Chloride Carbon Dioxide Anion Gap BUN Creatinine Est GFR (CKD-EPI)AfAm Est GFR (CKD-EPI)NonAf Random Glucose Calcium Total Bilirubin AST ALT Alkaline Phosphatase Creatine Kinase Troponin I Total Protein Albumin Triglycerides Cholesterol Total LDL Cholesterol HDL Cholesterol Urine Color Yellow Urine Appearance Clear Urine pH 6.5 Ur Specific [place] 1.012 Urine Protein 3+ H Urine Glucose (UA) Negative Urine Ketones Negative Urine Blood Trace Urine Nitrite Negative Urine Bilirubin Negative Urine Urobilinogen 1.0 Ur Leukocyte Esterase Negative Urine WBC (Auto) 1 Urine RBC (Auto) 3 Urine Casts (Auto) 6 U Epithel Cells (Auto) 2.4 Urine Bacteria (Auto) 0.5 Blood Type Antibody Screen 07/06/19 07/06/19 07/06/19 21:40 21:40 21:40 PT with INR 11.30 INR 0.96 Anticoagulation Therapy Puncture Site ABG pH ABG pCO2 at Pt Temp ABG pO2 at Pt Temp ABG HCO3 ABG O2 Sat (Measured) ABG O2 Content ABG Base Excess Carlos Test Carboxyhemoglobin Methemoglobin O2 Delivery Device Oxygen Flow Rate Vent Mode Vent Rate Mechanical Rate PEEP Pressure Support Vent Sodium 143 Potassium 3.1 L Chloride 103 Carbon Dioxide 18 L Anion Gap 22 H BUN 11.9 Creatinine 1.2 Est GFR (CKD-EPI)AfAm 47.06 Est GFR (CKD-EPI)NonAf 40.60 Random Glucose 131 H Calcium 9.1 Total Bilirubin 0.5 AST 33 ALT 10 L Alkaline Phosphatase 65 Creatine Kinase Troponin I Total Protein 6.1 L Albumin 2.8 L Triglycerides 120 Cholesterol 242 H Total LDL Cholesterol 146 H HDL Cholesterol 81 H Urine Color Urine Appearance Urine pH Ur Specific [place] Urine Protein Urine Glucose (UA) Urine Ketones Urine Blood Urine Nitrite Urine Bilirubin Urine Urobilinogen Ur Leukocyte Esterase Urine WBC (Auto) Urine RBC (Auto) Urine Casts (Auto) U Epithel Cells (Auto) Urine Bacteria (Auto) Blood Type O POSITIVE Antibody Screen Negative 07/06/19 21:40 PT with INR INR Anticoagulation Therapy Puncture Site ABG pH ABG pCO2 at Pt Temp ABG pO2 at Pt Temp ABG HCO3 ABG O2 Sat (Measured) ABG O2 Content ABG Base Excess Carlos Test Carboxyhemoglobin Methemoglobin O2 Delivery Device Oxygen Flow Rate Vent Mode Vent Rate Mechanical Rate PEEP Pressure Support Vent Sodium Potassium Chloride Carbon Dioxide Anion Gap BUN Creatinine Est GFR (CKD-EPI)AfAm Est GFR (CKD-EPI)NonAf Random Glucose Calcium Total Bilirubin AST ALT Alkaline Phosphatase Creatine Kinase 108 Troponin I 0.04 Total Protein Albumin Triglycerides Cholesterol Total LDL Cholesterol HDL Cholesterol Urine Color Urine Appearance Urine pH Ur Specific [place] Urine Protein Urine Glucose (UA) Urine Ketones Urine Blood Urine Nitrite Urine Bilirubin Urine Urobilinogen Ur Leukocyte Esterase Urine WBC (Auto) Urine RBC (Auto) Urine Casts (Auto) U Epithel Cells (Auto) Urine Bacteria (Auto) Blood Type Antibody Screen 07/06/19 21:40 RBC 3.79 MCV 91.3 MCHC 32.9 RDW 15.9 H D MPV 8.7 Neutrophils % 87.5 H D Lymphocytes % 6.1 L D Monocytes % 4.6 Eosinophils % 1.2 Basophils % 0.6 - Medications Given in the ED: ED Medications Discontinued Medications Generic Name Dose Route Start Last Admin Trade Name Freq PRN Reason Stop Dose Admin Sodium Chloride 1,000 mls @ 42 mls/hr 07/06/19 21:45 07/06/19 22:02 Normal Saline - IV 42 mls/hr ASDIR MATILDE Administration Piperacillin Sod/Tazobactam 50 mls @ 100 mls/hr 07/06/19 21:50 07/06/19 22:02 Sod 3.375 gm/ Dextrose IVPB 07/06/19 22:19 100 mls/hr ONCE ONE Administration Protocol Levetiracetam 1,500 mg 07/06/19 21:49 07/06/19 22:40 Keppra Injection - IVPB 07/06/19 21:50 1,500 mg ONCE ONE Administration Midazolam HCl 2 mg 07/06/19 23:14 07/06/19 23:17 Versed - IVPUSH 07/06/19 23:15 2 mg ONCE ONE Administration <Sam Elliott - Last Filed: 07/07/19 00:12> Medical Decision Making - Critical Care Time Total Critical Care Time (minutes): 60 Critical Care Statement: The care of this patient involved high complexity decision making to prevent further life threatening deterioration of the patient 's condition and/or to evaluate & treat vital organ system(s) failure or risk of failure. - Medical Decision Making Pt was seen at bedside, also will be seen by attending Dr. Elliott. Pt presenting via EMS with potential status seizure vs CVA. Will evaluate with lab-work up, head CT, UA, chest x-ray. Pt received 5 mg IM versed by EMS which stopped seizure activity. BGM by EMS was 150s. Spoke with Neurology (Dr. Hughes) who will follow the pt. Suggested EEG and keppra loading dose IV. Pt had poor mentation and was unresponsive -- intubated in ED with ernesto and etomidate, followed by fentanyl drip for post-sedation (see nursing note). No complications. Added versed drip for seizure prophylaxis and 2 mg IV push versed. Provided total of 2 L IV NS and keppra. Will continue to reassess pt and monitor for symptomatic improvement. ECG: NSR, with ST depressions, prolonged QT (HR 94, IN 148, QRS 72, QTc 570). ST depressions new from last ECG (02/2019) CBC with mild increased WBC -- providing vanc and zosyn for potential aspiration pneumonia CMP: K 3.1, with elevated AG, likely lactic acidosis -- providing K rider UA negative for infection Pt accepted to ICU and hospitalist team (covering for Dr. Crespo/Dr. Martinez). Pt stable on ventilator until taken to ICU. 07/06/19 23:55 <Gabriella Edmonds - Last Filed: 07/06/19 23:49> *DC/Admit/Observation/Transfer - Discharge Dispostion Decision to Admit order: Yes <Gabriella Edmonds - Last Filed: 07/06/19 23:49> - Attestations Physician Attestion: 07/07/19 00:11 I have reviewed the plan as documented and agree with current plan as documented. Electronically co-signed by Sam Elliott MD <Sam Elliott - Last Filed: 07/07/19 00:12> Diagnosis at time of Disposition: Seizure disorder, Alzheimer's dementia, Endotracheally intubated - Discharge Dispostion Condition at time of disposition: Stable
[2019-07-06] MEDS ORDERED: KCL 10 MEQ IVPB 10 MEQ/100 ML INFUS.BAG IVPB SCH (22:45)
[2019-07-06] MEDS ORDERED: MIDAZOLAM IN 0.9 % SOD.CHLORID 1 MG/1 ML PLAST..BAG ONE (22:56)
[2019-07-06 22:57] LABS: ARTERIAL BLD GAS O2 SATURATION 98.2 % (95-98); ARTERIAL BLOOD GAS BASE EXCESS -2.3 meq/l (-2-2); ARTERIAL BLOOD GAS PCO2 33.6 mmHg (35-45); ARTERIAL BLOOD GAS pH 7.42 (7.35-7.45)
[2019-07-06 22:59] LABS: ARTERIAL BLOOD GAS PO2 104 mmHg (80-100)
--- NOTE | 2019-07-06 22:59 | PDOC ---
Documentation entered by Jeferson Hyman SCRIBE, acting as scribe for Sam Elliott MD. Sam Elliott MD: This documentation has been prepared by the Boogie berger Daniel, SCRIBE, under my direction and personally reviewed by me in its entirety. I confirm that the documentation accurately reflects all work, treatment, procedures, and medical decision making performed by me. Attending Attestation - Resident Resident Name: KendalGabrilela - ED Attending Attestation I have performed the following: I have examined & evaluated the patient, The case was reviewed & discussed with the resident, I agree w/resident's findings & plan, Exceptions are as noted - HPI HPI: 07/06/19 21:49 The patient is an 89 year old female with a past medical history of CVA (with residual weakness of the right extremities), Parkinsons disease, HTN, HLD, and epilepsy brought in today by EMS for evaluation of seizure. As per EMS, the patient developed right sided facial drooping and then had a seizure. Not on ASA or AC. Arrived in ED being bagged by EMS, poor mental status with sonorous respirations. Allergies: NKA 07/06/19 22:55 - Physicial Exam PE: 07/06/19 21:49 Agree with resident's exam. - Critical Care Time Total Critical Care Time: 30 Critical Care Statement: The care of this patient involved high complexity decision making to prevent further life threatening deterioration of the patient 's condition and/or to evaluate & treat vital organ system(s) failure or risk of failure. - Medical Decision Making 07/06/19 22:56 given description of initial onset facial droop prior to seizure, there is concern for stroke vs bleed Normotensive, afebrile, poor mental status Intubated in ED with etomidate, rocuronium for airway protection placed on fentanyl drip followed by versed drip labs UA/Ucx cxr CT head vanc zosyn given aspiration risk cont fentanyl drip stroke neurology consult (code gallegos) ICU
[2019-07-06] MEDS ORDERED: MIDAZOLAM IN 0.9 % SOD.CHLORID 100 MG/100 ML PLAST..BAG IVPB SCH (23:00)
[2019-07-06 23:10] LABS: CARBOXYHEMOGLOBIN 0.9 % (0-2)
[2019-07-06] MEDS ORDERED: MIDAZOLAM HCL 2 MG/2 ML SINGLE DOSE VIAL IVPUSH ONE (23:14)
[2019-07-06] MEDS ORDERED: SODIUM CHLORIDE 1,000 ML IV STA (23:23)
--- NOTE | 2019-07-06 23:44 | CONSULT ---
Consultation: REQUESTING PROVIDER: CONSULT REQUEST: We have been asked to medically evaluate this patient for ICU. HISTORY OF PRESENT ILLNESS: 89 yo F PMH dementia, depression, Parkinson's dx, HTN, seizure disorder ( on Keppra) , L cerebral CVA presented to ED by EMS w/ respiratory failure and status epilepticus. Pt reportedly had chronic R sided defecits in LE and UE from prior stroke. This evening, pt demonstrated new L sided facial droop. Shortly after the family reports tonic clonic seizure lasting a few minutes. Hx obtained by family. REVIEW OF SYSTEMS: Unable to obtain, pt is intubated and sedated PHYSICAL EXAMINATION Vital Signs - 24 hr 07/06/19 07/06/19 07/06/19 21:20 22:06 22:10 Temperature 98.9 F Pulse Rate 122 H Pulse Rate [ Apical] Respiratory 12 22 H Rate Blood Pressure 156/104 H Blood Pressure [Left Arm] O2 Sat by Pulse 92 L 100 100 Oximetry (%) 07/06/19 07/06/19 22:21 22:49 Temperature Pulse Rate Pulse Rate [ 110 H 76 Apical] Respiratory 22 H 20 Rate Blood Pressure Blood Pressure 166/85 127/58 L [Left Arm] O2 Sat by Pulse 100 100 Oximetry (%) GENERAL: pt is sedated and intubated. HEAD: Normal with no signs of trauma. EYES: Pupils equal, round and reactive to light NECK: Normal range of motion, supple without lymphadenopathy, JVD, or masses. LUNGS:Rhonchorous sounds bilaterally. HEART: Regular rate and rhythm, S1 and S2 ABDOMEN: Soft, not distended, normoactive bowel sounds, no masses. UPPER EXTREMITIES: 2+ pulses, warm, well-perfused. No cyanosis. No clubbing. No peripheral edema. LOWER EXTREMITIES: 2+ pulses, warm, well-perfused. No peripheral edema. NEUROLOGICAL: Pt sedated SKIN: Warm, dry, normal turgor, no rashes or lesions noted. Laboratory Results - last 24 hr Laboratory Last Values WBC 13.4 K/mm3 (4.0-10.0) H 07/06/19 21:40 RBC 3.79 M/mm3 (3.60-5.2) 07/06/19 21:40 Hgb 11.4 GM/dL (10.7-15.3) 07/06/19 21:40 Hct 34.6 % (32.4-45.2) 07/06/19 21:40 MCV 91.3 fl (80-96) 07/06/19 21:40 MCH 30.0 pg (25.7-33.7) 07/06/19 21:40 MCHC 32.9 g/dl (32.0-36.0) 07/06/19 21:40 RDW 15.9 % (11.6-15.6) H D 07/06/19 21:40 Plt Count 354 K/MM3 (134-434) D 07/06/19 21:40 MPV 8.7 fl (7.5-11.1) 07/06/19 21:40 Absolute Neuts (auto) 11.7 K/mm3 (1.5-8.0) H 07/06/19 21:40 Neutrophils % 87.5 % (42.8-82.8) H D 07/06/19 21:40 Lymphocytes % 6.1 % (8-40) L D 07/06/19 21:40 Monocytes % 4.6 % (3.8-10.2) 07/06/19 21:40 Eosinophils % 1.2 % (0-4.5) 07/06/19 21:40 Basophils % 0.6 % (0-2.0) 07/06/19 21:40 Nucleated RBC % 0 % (0-0) 07/06/19 21:40 PT with INR 11.30 SEC (9.7-13.0) 07/06/19 21:40 INR 0.96 (0.83-1.09) 07/06/19 21:40 Anticoagulation Therapy No Result Required. 07/06/19 22:30 Puncture Site Right radial 07/06/19 22:30 ABG pH 7.42 (7.35-7.45) 07/06/19 22:30 ABG pCO2 at Pt Temp 33.6 mmHg (35-45) L 07/06/19 22:30 ABG pO2 at Pt Temp 104 mmHg (80-100) H 07/06/19 22:30 ABG HCO3 21.2 mmol/L (22-27) L 07/06/19 22:30 ABG O2 Sat (Measured) 98.2 % (95-98) H 07/06/19 22:30 ABG O2 Content No Result Required. 07/06/19 22:30 ABG Base Excess -2.3 meq/l (-2-2) L 07/06/19 22:30 Carlos Test No Result Required. 07/06/19 22:30 Carboxyhemoglobin 0.9 % (0-2) 07/06/19 22:30 Methemoglobin < 1.0 % (0-2) 07/06/19 22:30 O2 Delivery Device Mech vent 07/06/19 22:30 Oxygen Flow Rate 50% 07/06/19 22:30 Vent Mode A/c 07/06/19 22:30 Vent Rate 14 07/06/19 22:30 Mechanical Rate No Result Required. 07/06/19 22:30 PEEP 5.0 cmH2O 07/06/19 22:30 Pressure Support Vent 350 07/06/19 22:30 Sodium 143 mmol/L (136-145) 07/06/19 21:40 Potassium 3.1 mmol/L (3.5-5.1) L 07/06/19 21:40 Chloride 103 mmol/L (98-107) 07/06/19 21:40 Carbon Dioxide 18 mmol/L (21-32) L 07/06/19 21:40 Anion Gap 22 MMOL/L (8-16) H 07/06/19 21:40 BUN 11.9 mg/dL (7-18) 07/06/19 21:40 Creatinine 1.2 mg/dL (0.55-1.3) 07/06/19 21:40 Est GFR (CKD-EPI)AfAm 47.06 07/06/19 21:40 Est GFR (CKD-EPI)NonAf 40.60 07/06/19 21:40 Random Glucose 131 mg/dL (74-106) H 07/06/19 21:40 Calcium 9.1 mg/dL (8.5-10.1) 07/06/19 21:40 Total Bilirubin 0.5 mg/dL (0.2-1) 07/06/19 21:40 AST 33 U/L (15-37) 07/06/19 21:40 ALT 10 U/L (13-61) L 07/06/19 21:40 Alkaline Phosphatase 65 U/L (45-117) 07/06/19 21:40 Creatine Kinase 108 U/L (26-192) 07/06/19 21:40 Troponin I 0.04 ng/ml (0.00-0.05) 07/06/19 21:40 Total Protein 6.1 g/dl (6.4-8.2) L 07/06/19 21:40 Albumin 2.8 g/dl (3.4-5.0) L 07/06/19 21:40 Triglycerides 120 mg/dL (0-150) 07/06/19 21:40 Cholesterol 242 mg/dL (50-200) H 07/06/19 21:40 Total LDL Cholesterol 146 mg/dL (5-100) H 07/06/19 21:40 HDL Cholesterol 81 mg/dL (40-60) H 07/06/19 21:40 Urine Color Yellow 07/06/19 21:40 Urine Appearance Clear 07/06/19 21:40 Urine pH 6.5 (5.0-8.0) 07/06/19 21:40 Ur Specific [place] 1.012 (1.010-1.035) 07/06/19 21:40 Urine Protein 3+ (NEGATIVE) H 07/06/19 21:40 Urine Glucose (UA) Negative (NEGATIVE) 07/06/19 21:40 Urine Ketones Negative (NEGATIVE) 07/06/19 21:40 Urine Blood Trace (NEGATIVE) 07/06/19 21:40 Urine Nitrite Negative (NEGATIVE) 07/06/19 21:40 Urine Bilirubin Negative (NEGATIVE) 07/06/19 21:40 Urine Urobilinogen 1.0 mg/dL (0.2-1.0) 07/06/19 21:40 Ur Leukocyte Esterase Negative (NEGATIVE) 07/06/19 21:40 Urine WBC (Auto) 1 /hpf (0-5) 07/06/19 21:40 Urine RBC (Auto) 3 /hpf (0-4) 07/06/19 21:40 Urine Casts (Auto) 6 /lpf (0-8) 07/06/19 21:40 U Epithel Cells (Auto) 2.4 /HPF (0-5/HPF) 07/06/19 21:40 Urine Bacteria (Auto) 0.5 /hpf (NEGATIVE) 07/06/19 21:40 Current Medications Sodium Chloride (Normal Saline -) 1,000 mls @ 42 mls/hr IV ASDIR MATILDE Last Admin: 07/06/19 22:02 Dose: 42 mls/hr Fentanyl 500 mcg/ Dextrose 100 mls @ 5 mls/hr IVPB TITR MATILDE Last Admin: 07/06/19 21:56 Dose: 25 mcg/hr, 5 mls/hr Potassium Chloride (Potassium Chloride 10 Meq Premix Ivpb -) 10 meq in 100 mls @ 100 mls/hr IVPB Q60M MATILDE Stop: 07/06/19 23:44 Midazolam HCl (Midazolam 100mg/100ml-0.9%Nacl) 100 mg in 100 mls @ 1 mls/hr IVPB TITR MATILDE; Protocol Stop: 07/07/19 22:59 Last Admin: 07/06/19 23:06 Dose: 1 mg/hr, 1 mls/hr ASSESSMENT/PLAN: 89 yo F PMH dementia, Parkinson's, depression, HTN, L cerebral CVA, seizure disorder admitted for r/o CVA, Acute respiratory failure, and status epilepticus. EMS gave 5 mg Versed in the field. Pt was BIBEMS in respiratory distress and intubated in the ED. Pt will be monitored by ICU. R/O CVA Status Epilepticus , hx of seizure disorder Acute respiratory failure HTN Neuro: -r/o CVA -Status Epilepticus -Head CT : reviewed no acute interval change. -stroke protocol initiated in ED. low suspicion of stroke as primary diagnosis -Neuro recs (Dr. Hughes) recs appreciated -c/w keppra -c/w versed and fentanyl -HOB elevated, -rpt CT -will obtain further hx from family as they were not at bedside during evaluation Cardiovascular: HTN -continue cardiac monitoring -Echo 02/26: normal EF , Grade I diastolic dysfunction -hold antihypertensives in setting of acute CVA -Cholesterol 242, LDL 46, HDL 81. -troponin negative , continue to trend -EKG: diffuse ST depressions. likely 2/2 seizure Pulmonary Acute Respiratory Failure -CXRAY reviewed -will rpt CXR in am -Vent settings: Rate 14, TV 350, %O 40, Peak flow 50 , PEEP 5 ID -empiric Vanc, Zosyn in ED F/E/N -c/w NS @ 75mls / hr -rpt BMP , continue to monitor electrolytes -hypokalemia- repleted -NPO Dispo: We will continue to follow the patient. Thank you for this consultative opportunity. Visit type - Emergency Visit Emergency Visit: Yes ED Registration Date: 07/06/19 Care time: The patient presented to the Emergency Department on the above date and was hospitalized for further evaluation of their emergent condition. - New Patient This patient is new to me today: Yes Date on this admission: 07/07/19 - Critical Care Critical Care patient: Yes Total Critical Care Time (in minutes): 36 Critical Care Statement: The care of this patient involved high complexity decision making to prevent further life threatening deterioration of the patient 's condition and/or to evaluate & treat vital organ system(s) failure or risk of failure. ATTENDING PHYSICIAN STATEMENT I saw and evaluated the patient. I reviewed the resident's note and discussed the case with the resident. I agree with the resident's findings and plan as documented. SUBJECTIVE: OBJECTIVE: ASSESSMENT AND PLAN:
[2019-07-07] MEDS: SODIUM CHLORIDE 1,000 ML IV SCH ×2 (00:26→23:55)
--- NOTE | 2019-07-07 00:34 | HP ---
CHIEF COMPLAINT: Seizure PCP: Dr. 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 As per family patient in the evening noted L-sided facial droop, which started before a generalized tonic-clonic seizure which lasted for a few minutes. Patient arrived to ED being bagged by EMS with poor mental status. Patient cannot provide ROS, but family denies any recent fevers/chills, syncope , vomiting, urinary symptoms, diarrhea/constipation. Patient is not on ASA, or AC. ER course was notable for: Intubated in ED with etomidate, rocuronium for airway protection placed on fentanyl drip followed by versed drip -Head CT : reviewed no acute interval change -Neuro consulted - Keppra loading vanc zosyn given aspiration risk KCL given Recent Travel: no PAST MEDICAL HISTORY: CVA right valorie, Dementia, Depression, Parkinson's, HTN, HLD, seizures PAST SURGICAL HISTORY: left hip replacement 2016 Social History: Smoking:no Alcohol:no Drugs: no Family History: no relevant history Allergies: No Known Allergies Allergy (Verified 07/06/19 21:45) HOME MEDICATIONS: Home Medications Medication Instructions Recorded Carbidopa/Levodopa 25/100 [Sinemet 1 each PO TID 07/05/18 -] Donepezil HCl [Aricept] 10 mg PO DAILY 07/05/18 Escitalopram Oxalate [Lexapro -] 10 mg PO DAILY 07/05/18 Olmesartan Medoxomil [Benicar] 20 mg PO DAILY 07/05/18 Quetiapine Fumarate [Seroquel -] 25 mg PO BID 07/05/18 levETIRAcetam [Keppra -] 500 mg PO BID 07/05/18 Acetaminophen [Tylenol .Regular 650 mg PO Q6H PRN tablet 07/12/18 Strength -] Carbidopa/Levodopa 25/100 [Sinemet 1 each PO BID tablet 07/12/18 -] Donepezil HCl [Aricept -] 10 mg PO DAILY tablet 07/12/18 levETIRAcetam [Keppra -] 750 mg PO BID tablet 07/12/18 Hydrochlorothiazide [Hctz -] 25 mg PO DAILY #30 tablet 07/14/18 REVIEW OF SYSTEMS unable to conduct due to sedation, intubated PHYSICAL EXAMINATION Vital Signs - 24 hr 07/06/19 07/06/19 07/06/19 21:20 21:30 22:06 Temperature 98.9 F Pulse Rate 122 H Pulse Rate [ Apical] Respiratory 12 14 Rate Blood Pressure 156/104 H Blood Pressure [Left Arm] O2 Sat by Pulse 92 L 100 Oximetry (%) 07/06/19 07/06/19 07/06/19 22:10 22:21 22:49 Temperature Pulse Rate Pulse Rate [ 110 H 76 Apical] Respiratory 22 H 22 H 20 Rate Blood Pressure Blood Pressure 166/85 127/58 L [Left Arm] O2 Sat by Pulse 100 100 100 Oximetry (%) GENERAL: sedated and intubated. HEENT: NC/AT, No JVD LUNGS: +rhonchi bilaterally. HEART: S1 and S2, no S3 ABDOMEN: Soft,NT/ND, BS+ Extremity: No cyanosis. No clubbing. No peripheral edema. NEUROLOGICAL: +sedated SKIN: Warm, dry Laboratory Results - last 24 hr 07/06/19 07/06/19 07/06/19 21:40 21:40 21:40 WBC 13.4 H RBC 3.79 Hgb 11.4 Hct 34.6 MCV 91.3 MCH 30.0 MCHC 32.9 RDW 15.9 H D Plt Count 354 D MPV 8.7 Absolute Neuts (auto) 11.7 H Neutrophils % 87.5 H D Lymphocytes % 6.1 L D Monocytes % 4.6 Eosinophils % 1.2 Basophils % 0.6 Nucleated RBC % 0 PT with INR INR Anticoagulation Therapy Puncture Site ABG pH ABG pCO2 at Pt Temp ABG pO2 at Pt Temp ABG HCO3 ABG O2 Sat (Measured) ABG O2 Content ABG Base Excess Carlos Test Carboxyhemoglobin Methemoglobin O2 Delivery Device Oxygen Flow Rate Vent Mode Vent Rate Mechanical Rate PEEP Pressure Support Vent Sodium 143 Potassium 3.1 L Chloride 103 Carbon Dioxide 18 L Anion Gap 22 H BUN 11.9 Creatinine 1.2 Est GFR (CKD-EPI)AfAm 47.06 Est GFR (CKD-EPI)NonAf 40.60 Random Glucose 131 H Calcium 9.1 Total Bilirubin 0.5 AST 33 ALT 10 L Alkaline Phosphatase 65 Creatine Kinase 108 Troponin I 0.04 Total Protein 6.1 L Albumin 2.8 L Triglycerides 120 Cholesterol 242 H Total LDL Cholesterol 146 H HDL Cholesterol 81 H Urine Color Urine Appearance Urine pH Ur Specific Ferron Urine Protein Urine Glucose (UA) Urine Ketones Urine Blood Urine Nitrite Urine Bilirubin Urine Urobilinogen Ur Leukocyte Esterase Urine WBC (Auto) Urine RBC (Auto) Urine Casts (Auto) U Epithel Cells (Auto) Urine Bacteria (Auto) Blood Type Antibody Screen 07/06/19 07/06/19 07/06/19 21:40 21:40 21:40 WBC RBC Hgb Hct MCV MCH MCHC RDW Plt Count MPV Absolute Neuts (auto) Neutrophils % Lymphocytes % Monocytes % Eosinophils % Basophils % Nucleated RBC % PT with INR 11.30 INR 0.96 Anticoagulation Therapy Puncture Site ABG pH ABG pCO2 at Pt Temp ABG pO2 at Pt Temp ABG HCO3 ABG O2 Sat (Measured) ABG O2 Content ABG Base Excess Carlos Test Carboxyhemoglobin Methemoglobin O2 Delivery Device Oxygen Flow Rate Vent Mode Vent Rate Mechanical Rate PEEP Pressure Support Vent Sodium Potassium Chloride Carbon Dioxide Anion Gap BUN Creatinine Est GFR (CKD-EPI)AfAm Est GFR (CKD-EPI)NonAf Random Glucose Calcium Total Bilirubin AST ALT Alkaline Phosphatase Creatine Kinase Troponin I Total Protein Albumin Triglycerides Cholesterol Total LDL Cholesterol HDL Cholesterol Urine Color Yellow Urine Appearance Clear Urine pH 6.5 Ur Specific Ferron 1.012 Urine Protein 3+ H Urine Glucose (UA) Negative Urine Ketones Negative Urine Blood Trace Urine Nitrite Negative Urine Bilirubin Negative Urine Urobilinogen 1.0 Ur Leukocyte Esterase Negative Urine WBC (Auto) 1 Urine RBC (Auto) 3 Urine Casts (Auto) 6 U Epithel Cells (Auto) 2.4 Urine Bacteria (Auto) 0.5 Blood Type O POSITIVE Antibody Screen Negative 07/06/19 07/06/19 22:30 22:30 WBC RBC Hgb Hct MCV MCH MCHC RDW Plt Count MPV Absolute Neuts (auto) Neutrophils % Lymphocytes % Monocytes % Eosinophils % Basophils % Nucleated RBC % PT with INR INR Anticoagulation Therapy No Result Required. Puncture Site Right radial ABG pH 7.42 ABG pCO2 at Pt Temp 33.6 L ABG pO2 at Pt Temp 104 H ABG HCO3 21.2 L ABG O2 Sat (Measured) 98.2 H ABG O2 Content No Result Required. ABG Base Excess -2.3 L Carlos Test No Result Required. Carboxyhemoglobin 0.9 Methemoglobin < 1.0 O2 Delivery Device Mech vent Oxygen Flow Rate 50% Vent Mode A/c Vent Rate 14 Mechanical Rate No Result Required. PEEP 5.0 Pressure Support Vent 350 Sodium Potassium Chloride Carbon Dioxide Anion Gap BUN Creatinine Est GFR (CKD-EPI)AfAm Est GFR (CKD-EPI)NonAf Random Glucose Calcium Total Bilirubin AST ALT Alkaline Phosphatase Creatine Kinase Troponin I Total Protein Albumin Triglycerides Cholesterol Total LDL Cholesterol HDL Cholesterol Urine Color Urine Appearance Urine pH Ur Specific Ferron Urine Protein Urine Glucose (UA) Urine Ketones Urine Blood Urine Nitrite Urine Bilirubin Urine Urobilinogen Ur Leukocyte Esterase Urine WBC (Auto) Urine RBC (Auto) Urine Casts (Auto) U Epithel Cells (Auto) Urine Bacteria (Auto) Blood Type Antibody Screen ASSESSMENT/PLAN: 89 year old female with PMHx of dementia, Parkinson's, 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 As per family patient in the evening noted L-sided facial droop, which started before a generalized tonic-clonic seizure which lasted for a few minutes. Patient arrived to ED being bagged by EMS with poor mental status. Admitted to ICU for close monitoring R/O CVA Status Epilepticus , hx of seizure disorder Acute respiratory failure ( Intubated) HTN Hypokalemia -EKG: diffuse ST depressions. likely 2/2 seizure -Head CT : reviewed no acute interval change -Echo 02/26: normal EF , Grade I diastolic dysfunction -troponin negative - monitor trend -stroke protocol initiated in ED - Keppra loading as per neuro recs -vent support, continue with versed and fentanyl -continue with keppra -follow up neuro, ID in AM -follow up CXR in AM (empiric Vanc, Zosyn in ED as aspiration ppx) -continue with IV fluids -cbc, bmp in AM - alvarado in place, monitor output -NPO Problem List - Problem (1) Status epilepticus Code(s): G40.901 - EPILEPSY, UNSP, NOT INTRACTABLE, WITH STATUS EPILEPTICUS (2) Acute respiratory distress Code(s): R06.03 - ACUTE RESPIRATORY DISTRESS (3) Airway intubation performed without difficulty Code(s): Z78.9 - OTHER SPECIFIED HEALTH STATUS (4) Hypokalemia Code(s): E87.6 - HYPOKALEMIA (5) HTN (hypertension) Code(s): I10 - ESSENTIAL (PRIMARY) HYPERTENSION Visit type - Emergency Visit Emergency Visit: Yes ED Registration Date: 07/06/19 Care time: The patient presented to the Emergency Department on the above date and was hospitalized for further evaluation of their emergent condition. - New Patient This patient is new to me today: Yes Date on this admission: 07/07/19 - Critical Care Critical Care patient: Yes Total Critical Care Time (in minutes): 55 Critical Care Statement: The care of this patient involved high complexity decision making to prevent further life threatening deterioration of the patient 's condition and/or to evaluate & treat vital organ system(s) failure or risk of failure.
[2019-07-07 06:47] LABS: ARTERIAL BLD GAS O2 SATURATION 99.1 % (95-98); ARTERIAL BLOOD GAS BASE EXCESS 2.8 meq/l (-2-2); ARTERIAL BLOOD GAS PCO2 42.3 mmHg (35-45); ARTERIAL BLOOD GAS PO2 133 mmHg (80-100); ARTERIAL BLOOD GAS pH 7.42 (7.35-7.45)
[2019-07-07 06:49] LABS: ALLENS TEST POSITIVE
[2019-07-07] MEDS ORDERED: POTASSIUM CHLORIDE 20 MEQ PREMIX IVPB 100 ML IVPB SCH ×2 (07:00→07:15)
[2019-07-07] MEDS ORDERED: POTASSIUM CHLORIDE 10 MEQ PREMIX IVPB (POTASSIUM RIDER) IVPB SCH (07:30)
[2019-07-07 07:36] LABS: BASO % 0.7 % (0-2.0); EOS % 0.4 % (0-4.5); HEMATOCRIT 31.9 % (32.4-45.2); HEMOGLOBIN 10.6 GM/dL (10.7-15.3); LYMPH % 5.8 % (8-40); MCH 29.7 pg (25.7-33.7); MCHC 33.1 g/dl (32.0-36.0); MEAN CELL VOLUME 89.5 fl (80-96); MEAN PLT VOLUME 8.7 fl (7.5-11.1); MONO % 6.5 % (3.8-10.2); NEUT % 86.6 % (42.8-82.8); PLATELET COUNT 312 K/MM3 (134-434); RBC 3.57 M/mm3 (3.60-5.2); RDW 15.5 % (11.6-15.6); WHITE BLOOD COUNT 16.1 K/mm3 (4.0-10.0)
[2019-07-07] MEDS: KCL 10 MEQ IVPB 10 MEQ/100 ML INFUS.BAG IVPB SCH ×3 (07:51→09:25)
[2019-07-07 08:01] LABS: ALBUMIN 2.6 g/dl (3.4-5.0); BILIRUBIN,TOTAL 0.9 mg/dL (0.2-1); BLOOD UREA NITROGEN 10.1 mg/dL (7-18); CALCIUM 8.2 mg/dL (8.5-10.1); CREATININE 0.8 mg/dL (0.55-1.3); PHOSPHOROUS 2.5 mg/dL (2.5-4.9); TOT PROT 5.6 g/dl (6.4-8.2)
[2019-07-07 08:19] LABS: POTASSIUM 2.6 mmol/L (3.5-5.1)
--- NOTE | 2019-07-07 08:47 | PN ---
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, Physician Chief Complaint: sedated and intuabted History of Present Illness: The patient is an 89 year old female with a past medical history of CVA (with residual weakness of the right extremities), Parkinsons disease, HTN, HLD, and epilepsy brought in today by EMS for evaluation of seizure. As per EMS, the patient developed right sided facial drooping and then had a seizure. - Current Medication List Current Medications: Active Medications Chlorhexidine Gluconate (Hibiclens For Decolonization -) 1 applic TP HS MATILDE Fentanyl 500 mcg/ Dextrose 100 mls @ 5 mls/hr IVPB TITR MATILDE Last Admin: 07/06/19 21:56 Dose: 25 mcg/hr, 5 mls/hr Midazolam HCl (Midazolam 100mg/100ml-0.9%Nacl) 100 mg in 100 mls @ 1 mls/hr IVPB TITR MATILDE; Protocol Stop: 07/07/19 22:59 Last Admin: 07/06/19 23:06 Dose: 1 mg/hr, 1 mls/hr Sodium Chloride (Normal Saline -) 1,000 mls @ 75 mls/hr IV ASDIR MATILDE Last Admin: 07/07/19 00:26 Dose: 75 mls/hr Potassium Chloride (Potassium Chloride 10 Meq Premix Ivpb -) 10 meq in 100 mls @ 100 mls/hr IVPB Q1H MATILDE Stop: 07/07/19 10:44 Last Admin: 07/07/19 08:37 Dose: 100 mls/hr Mupirocin (Bactroban Ointment (For Decolonization) -) 1 applic NS BID [facility] Stop: 07/12/19 09:59 - Objective Vital Signs: Vital Signs Temperature 97.9 F 07/07/19 07:54 Pulse Rate 61 07/07/19 07:54 Respiratory Rate 14 07/07/19 08:32 Blood Pressure 148/56 L 07/07/19 07:54 O2 Sat by Pulse Oximetry (%) 100 07/07/19 07:54 Constitutional: Yes: Other (sedated and intubated) Eyes: Yes: WNL, Conjunctiva Clear, EOM Intact HENT: Yes: WNL, Atraumatic, Normocephalic Neck: Yes: WNL, Supple, Trachea Midline Cardiovascular: Yes: WNL, Regular Rate and Rhythm, Tachycardia Respiratory: Yes: Intubated (orally intuabted) Gastrointestinal: Yes: Normal Bowel Sounds, Soft, Other (OGT in place) ...Rectal Exam: Yes: Deferred Genitourinary: Yes: Torrez Present Breast(s): Yes: WNL Musculoskeletal: Yes: Other (intubated and sedated) Extremities: Yes: WNL Edema: No Peripheral Pulses WNL: Yes Integumentary: Yes: WNL Neurological: Yes: Other (intuabted and sedated) Psychiatric: Yes: Other (sedated) Labs: CBC, BMP 07/07/19 06:35 07/07/19 06:35 INR, PTT INR 0.96 (0.83-1.09) 07/06/19 21:40 Problem List - Problems (1) Respiratory failure Assessment/Plan: intubated Vent settings: Rate 14, TV 350, %O 40, Peak flow 50, PEEP 5 -CXR: platelike atelectasi, some retrocardiac atelectasis vs infiltrate. - ceftriaxone and flagyl management will continue for Asp PNA -will do spontaneous breathing trials as tolerated by pt and assess mental statusvent management as per ICU team Code(s): J96.90 - RESPIRATORY FAILURE, UNSP, UNSP W HYPOXIA OR HYPERCAPNIA (2) HLD (hyperlipidemia) Assessment/Plan: c/w atrorvastatin once extubated Code(s): E78.5 - HYPERLIPIDEMIA, UNSPECIFIED (3) HTN (hypertension) Assessment/Plan: continue cardiac monitoring -hold antihypertensives in setting of possible CVA -troponin initial negative, 2nd 0.23 third .18, continuing to trend -EKG: diffuse ST depressions Code(s): I10 - ESSENTIAL (PRIMARY) HYPERTENSION (4) Hypokalemia Assessment/Plan: maintain K>4.0, Mg > 2.0 replete as needed Code(s): E87.6 - HYPOKALEMIA (5) Leukocytosis Assessment/Plan: being treated for potential aspitaion pns c/e ceftriaxone, flagyl appreciate ID consultation Code(s): D72.829 - ELEVATED WHITE BLOOD CELL COUNT, UNSPECIFIED (6) Dementia Code(s): F03.90 - UNSPECIFIED DEMENTIA WITHOUT BEHAVIORAL DISTURBANCE (7) Status epilepticus Assessment/Plan: Head CT with no acute interval change. -low suspicion of CVA - EEG done pedning report -Neuro recs (Dr. Hughes consulted) recs appreciated -c/w keppra IV 500 BID, questionable missed doses at home -interuption of sedation to assess responsne -HOB elevated 30 degrees - Code(s): G40.901 - EPILEPSY, UNSP, NOT INTRACTABLE, WITH STATUS EPILEPTICUS (8) Prophylactic measure Assessment/Plan: FEN NPO monitor electrolyes IVF DVT heparin tid Dispo maintain in ICU full code discharge planning Code(s): Z29.9 - ENCOUNTER FOR PROPHYLACTIC MEASURES, UNSPECIFIED Visit type - Emergency Visit Emergency Visit: Yes ED Registration Date: 07/06/19 Care time: The patient presented to the Emergency Department on the above date and was hospitalized for further evaluation of their emergent condition. - New Patient This patient is new to me today: Yes Date on this admission: 07/07/19 - Critical Care Critical Care patient: Yes Total Critical Care Time (in minutes): 35 Critical Care Statement: The care of this patient involved high complexity decision making to prevent further life threatening deterioration of the patient 's condition and/or to evaluate & treat vital organ system(s) failure or risk of failure.
[2019-07-07] MEDS ORDERED: PT OWN MED DRAWER 7, Y5N ONE ×3 (09:16→11:21)
--- NOTE | 2019-07-07 09:32 | PN ---
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 (short form) - Note 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: ID consult dictated patient seen in ICU imp/reccd 89 yo female with dementia, parkinson's disease, prior cva and seizure disorder developed left facial droop followed by grand mal seizure yesterday, brought to ED poorly responsive, intubated in ED no history of prior fevers at home given vanco/zosyn in ED after intubation sedated and intubated in the ICU-unable to assess neurologic status leukocytosis noted- UA negative, ?aspiration, cxray with possible LLL ( retrocardiac infiltrate)-may be secondary to seizure seizures r/o cva f/u cultures sputum culture ordered rocephin/flagyl neurology evaluation pending Problem List - Problems (1) Seizure disorder Code(s): G40.909 - EPILEPSY, UNSP, NOT INTRACTABLE, WITHOUT STATUS EPILEPTICUS (2) CVA (cerebral vascular accident) Code(s): I63.9 - CEREBRAL INFARCTION, UNSPECIFIED (3) Leukocytosis Code(s): D72.829 - ELEVATED WHITE BLOOD CELL COUNT, UNSPECIFIED (4) Aspiration pneumonia Code(s): J69.0 - PNEUMONITIS DUE TO INHALATION OF FOOD AND VOMIT (5) Respiratory failure Code(s): J96.90 - RESPIRATORY FAILURE, UNSP, UNSP W HYPOXIA OR HYPERCAPNIA
[2019-07-07] MEDS ORDERED: cefTRIAXone SODIUM 1 GM VIAL ONE (10:00)
[2019-07-07] MEDS ORDERED: DEXTROSE 5%-WATER - 50 ML IVPB ONE (10:00)
[2019-07-07] MEDS: CEFTRIAXONE 1 GM in DEXTROSE 5%-WATER - 50 ML IVPB SCH (10:09)
[2019-07-07] MEDS ORDERED: POTASSIUM CHLORIDE ORAL LIQUID 20 MEQ/15 ML PO ONE (10:30)
[2019-07-07] MEDS ORDERED: levETIRAcetam 500 MG/5 ML INJECTION VIAL IVPB SCH ×2 (10:30→19:34)
--- NOTE | 2019-07-07 10:36 | EKG ---
Test Reason : Blood Pressure : / mmHG Vent. Rate : 063 BPM Atrial Rate : 065 BPM P-R Int : 000 ms QRS Dur : 064 ms QT Int : 462 ms P-R-T Axes : 000 021 030 degrees QTc Int : 472 ms POOR DATA QUALITY, INTERPRETATION MAY BE ADVERSELY AFFECTED JUNCTIONAL RHYTHM ABNORMAL ECG WHEN COMPARED WITH ECG OF 06-JUL-2019 21:09, JUNCTIONAL RHYTHM HAS REPLACED SINUS RHYTHM VENT. RATE HAS DECREASED BY [address] NO LONGER DEPRESSED IN ANTERIOR LEADS NONSPECIFIC T WAVE ABNORMALITY HAS REPLACED INVERTED T WAVES IN INFERIOR LEADS QT HAS SHORTENED Confirmed by BREEZY LINDO, ESTELLA ([id number]) on 07/07/2019 10:36:38 AM Referred By: Confirmed By:ESTELLA TIJERINA MD
--- NOTE | 2019-07-07 10:41 | EKG ---
Test Reason : Blood Pressure : / mmHG Vent. Rate : 094 BPM Atrial Rate : 094 BPM P-R Int : 148 ms QRS Dur : 072 ms QT Int : 456 ms P-R-T Axes : 074 027 030 degrees QTc Int : 570 ms [address]ORMAL [address]INUS RHYTHM ST depression, consider subendocardial injury PROLONGED QT ABNORMAL ECG WHEN COMPARED WITH ECG OF 22-FEB-2019 15:01, VENT. RATE HAS INCREASED BY 32 BPM INVERTED T WAVES HAVE REPLACED NONSPECIFIC T WAVE ABNORMALITY IN INFERIOR LEADS QT HAS LENGTHENED Confirmed by BREEZY LINDO, ESTELLA ([id number]) on 07/07/2019 10:41:39 AM Referred By: Confirmed By:ESTELLA TIJERINA MD
--- NOTE | 2019-07-07 10:44 | PN ---
Teaching Attending Note Name of Resident: Ruiz Martinez ATTENDING PHYSICIAN STATEMENT I saw and evaluated the patient. I reviewed the resident's note and discussed the case with the resident. I agree with the resident's findings and plan as documented. SUBJECTIVE: Pt seen and examined in the ICU. Intubated, sedated on fentanyl, versed gtts. No seizure activity noted since admission. OBJECTIVE: Vital Signs Period Temp Pulse Resp BP Sys/[place] Pulse Ox Last 24 Hr 97.6 F-98.9 F 59-122 12-22 117-184/44-104 92-100 Intake & Output 07/04/19 07/05/19 07/06/19 07/07/19 23:59 23:59 23:59 23:59 Intake Total 952 Output Total 45 900 Balance -45 52 Weight 49.895 kg 40.88 kg Gen: intubated, sedated Heart: RRR Lung: decreased breath sounds at the bases Abd: soft, nontender Ext: no edema CBC, BMP 07/07/19 06:35 07/07/19 06:35 Active Medications Chlorhexidine Gluconate (Hibiclens For Decolonization -) 1 applic TP HS MATILDE Heparin Sodium (Porcine) (Heparin -) 5,000 unit SQ TID MATILDE Sodium Chloride (Normal Saline -) 1,000 mls @ 75 mls/hr IV ASDIR MATILDE Last Admin: 07/07/19 00:26 Dose: 75 mls/hr Potassium Chloride (Potassium Chloride 10 Meq Premix Ivpb -) 10 meq in 100 mls @ 100 mls/hr IVPB Q1H MATILDE Stop: 07/07/19 10:44 Last Admin: 07/07/19 09:25 Dose: 100 mls/hr Ceftriaxone Sodium 1 gm/ (Dextrose) 50 mls @ 100 mls/hr IVPB DAILY [facility]; Protocol Last Admin: 07/07/19 10:09 Dose: 100 mls/hr Metronidazole (Flagyl 500mg Premixed Ivpb -) 500 mg in 100 mls @ 100 mls/hr IVPB Q8H-IV MATILDE Last Admin: 07/07/19 10:08 Dose: 100 mls/hr Levetiracetam (Keppra Injection -) 500 mg IVPB BID MATILDE Mupirocin (Bactroban Ointment (For Decolonization) -) 1 applic NS BID [facility] Stop: 07/12/19 09:59 ASSESSMENT AND PLAN: Acute Respiratory Failure Breakthrough Seizure r/o Pneumonia Seizure Disorder +Troponins likely Demand Ischemia h/o CVA Parkinsons Dementia HTN - continue antiepileptics - antibiotics per ID - f/u cultures - replete lytes - hold all sedation to assess mental status - spontaneous breathing trials as tolerated when mental status improved - DVT prophylaxis - continue ICU monitoring critical care time spent in reviewing chart, evaluating patient and formulating plan 35 min
[2019-07-07] MEDS: MUPIROCIN 2% TOPICAL OINTMENT FOR DECOLONIZATION NS SCH ×2 (11:23→22:03)
--- NOTE | 2019-07-07 11:35 | PN ---
Physical Exam: SUBJECTIVE: Patient seen and examined at bedside. No acute events since arriving to ICU. OBJECTIVE: Vital Signs Period Temp Pulse Resp BP Sys/Rowland Pulse Ox Last 24 Hr 97.6 F-98.9 F 59-122 12-22 117-184/44-104 92-100 GENERAL: RASS -5 while on sedation, pt currently off sedation on rounds, nonarousable still, HEAD: Normal with no signs of trauma. NECK: supple. LUNGS: Breath sounds equal but decreased. HEART: Regular rate and rhythm, S1, S2 without murmur, rub or gallop. ABDOMEN: Soft, nontender, nondistended, hypoactive bowel sounds, no guarding, no rebound. Genitalia: Alvarado in place, irrigated no obstruction. EXTREMITIES: 2+ pulses, warm, well-perfused, no edema. NEUROLOGICAL: pt nonresponsive to verbal or physical stimuli. PSYCH: Normal mood, normal affect. SKIN: Warm, dry, no rashes or lesions noted Laboratory Results - last 24 hr 07/06/19 07/06/19 07/06/19 21:40 21:40 21:40 WBC 13.4 H RBC 3.79 Hgb 11.4 Hct 34.6 MCV 91.3 MCH 30.0 MCHC 32.9 RDW 15.9 H D Plt Count 354 D MPV 8.7 Absolute Neuts (auto) 11.7 H Neutrophils % 87.5 H D Lymphocytes % 6.1 L D Monocytes % 4.6 Eosinophils % 1.2 Basophils % 0.6 Nucleated RBC % 0 PT with INR INR Anticoagulation Therapy Puncture Site ABG pH ABG pCO2 at Pt Temp ABG pO2 at Pt Temp ABG HCO3 ABG O2 Sat (Measured) ABG O2 Content ABG Base Excess Carlos Test Carboxyhemoglobin Methemoglobin O2 Delivery Device Oxygen Flow Rate Vent Mode Vent Rate Mechanical Rate PEEP Pressure Support Vent Sodium 143 Potassium 3.1 L Chloride 103 Carbon Dioxide 18 L Anion Gap 22 H BUN 11.9 Creatinine 1.2 Est GFR (CKD-EPI)AfAm 47.06 Est GFR (CKD-EPI)NonAf 40.60 Random Glucose 131 H Calcium 9.1 Phosphorus Magnesium Total Bilirubin 0.5 AST 33 ALT 10 L Alkaline Phosphatase 65 Creatine Kinase 108 Troponin I 0.04 Total Protein 6.1 L Albumin 2.8 L Triglycerides 120 Cholesterol 242 H Total LDL Cholesterol 146 H HDL Cholesterol 81 H Urine Color Urine Appearance Urine pH Ur Specific [place] Urine Protein Urine Glucose (UA) Urine Ketones Urine Blood Urine Nitrite Urine Bilirubin Urine Urobilinogen Ur Leukocyte Esterase Urine WBC (Auto) Urine RBC (Auto) Urine Casts (Auto) U Epithel Cells (Auto) Urine Bacteria (Auto) Blood Type Antibody Screen 07/06/19 07/06/19 07/06/19 21:40 21:40 21:40 WBC RBC Hgb Hct MCV MCH MCHC RDW Plt Count MPV Absolute Neuts (auto) Neutrophils % Lymphocytes % Monocytes % Eosinophils % Basophils % Nucleated RBC % PT with INR 11.30 INR 0.96 Anticoagulation Therapy Puncture Site ABG pH ABG pCO2 at Pt Temp ABG pO2 at Pt Temp ABG HCO3 ABG O2 Sat (Measured) ABG O2 Content ABG Base Excess Carlos Test Carboxyhemoglobin Methemoglobin O2 Delivery Device Oxygen Flow Rate Vent Mode Vent Rate Mechanical Rate PEEP Pressure Support Vent Sodium Potassium Chloride Carbon Dioxide Anion Gap BUN Creatinine Est GFR (CKD-EPI)AfAm Est GFR (CKD-EPI)NonAf Random Glucose Calcium Phosphorus Magnesium Total Bilirubin AST ALT Alkaline Phosphatase Creatine Kinase Troponin I Total Protein Albumin Triglycerides Cholesterol Total LDL Cholesterol HDL Cholesterol Urine Color Yellow Urine Appearance Clear Urine pH 6.5 Ur Specific [place] 1.012 Urine Protein 3+ H Urine Glucose (UA) Negative Urine Ketones Negative Urine Blood Trace Urine Nitrite Negative Urine Bilirubin Negative Urine Urobilinogen 1.0 Ur Leukocyte Esterase Negative Urine WBC (Auto) 1 Urine RBC (Auto) 3 Urine Casts (Auto) 6 U Epithel Cells (Auto) 2.4 Urine Bacteria (Auto) 0.5 Blood Type O POSITIVE Antibody Screen Negative 07/06/19 07/06/19 07/07/19 22:30 22:30 06:35 WBC 16.1 H RBC 3.57 L Hgb 10.6 L Hct 31.9 L MCV 89.5 MCH 29.7 MCHC 33.1 RDW 15.5 Plt Count 312 MPV 8.7 Absolute Neuts (auto) 14.0 H Neutrophils % 86.6 H Lymphocytes % 5.8 L Monocytes % 6.5 Eosinophils % 0.4 Basophils % 0.7 Nucleated RBC % 0 PT with INR INR Anticoagulation Therapy No Result Required. Puncture Site Right radial ABG pH 7.42 ABG pCO2 at Pt Temp 33.6 L ABG pO2 at Pt Temp 104 H ABG HCO3 21.2 L ABG O2 Sat (Measured) 98.2 H ABG O2 Content No Result Required. ABG Base Excess -2.3 L Carlos Test No Result Required. Carboxyhemoglobin 0.9 Methemoglobin < 1.0 O2 Delivery Device Mech vent Oxygen Flow Rate 50% Vent Mode A/c Vent Rate 14 Mechanical Rate No Result Required. PEEP 5.0 Pressure Support Vent 350 Sodium Potassium Chloride Carbon Dioxide Anion Gap BUN Creatinine Est GFR (CKD-EPI)AfAm Est GFR (CKD-EPI)NonAf Random Glucose Calcium Phosphorus Magnesium Total Bilirubin AST ALT Alkaline Phosphatase Creatine Kinase Troponin I Total Protein Albumin Triglycerides Cholesterol Total LDL Cholesterol HDL Cholesterol Urine Color Urine Appearance Urine pH Ur Specific [place] Urine Protein Urine Glucose (UA) Urine Ketones Urine Blood Urine Nitrite Urine Bilirubin Urine Urobilinogen Ur Leukocyte Esterase Urine WBC (Auto) Urine RBC (Auto) Urine Casts (Auto) U Epithel Cells (Auto) Urine Bacteria (Auto) Blood Type Antibody Screen 07/07/19 07/07/19 07/07/19 06:35 06:35 06:40 WBC RBC Hgb Hct MCV MCH MCHC RDW Plt Count MPV Absolute Neuts (auto) Neutrophils % Lymphocytes % Monocytes % Eosinophils % Basophils % Nucleated RBC % PT with INR INR Anticoagulation Therapy No Result Required. Puncture Site Right radial ABG pH 7.42 ABG pCO2 at Pt Temp 42.3 ABG pO2 at Pt Temp 133 H ABG HCO3 27.0 ABG O2 Sat (Measured) 99.1 H ABG O2 Content 14.9 ABG Base Excess 2.8 H Carlos Test Positive Carboxyhemoglobin Methemoglobin O2 Delivery Device No Result Required. Oxygen Flow Rate No Vent Mode No Result Required. Vent Rate No Result Required. Mechanical Rate No Result Required. PEEP 5.0 Pressure Support Vent No Result Required. Sodium 144 Potassium 2.6 L* Chloride 107 Carbon Dioxide 29 Anion Gap 8 BUN 10.1 Creatinine 0.8 Est GFR (CKD-EPI)AfAm 76.83 Est GFR (CKD-EPI)NonAf 66.29 Random Glucose 91 Calcium 8.2 L Phosphorus 2.5 Magnesium 2.0 Total Bilirubin 0.9 AST 36 ALT 11 L Alkaline Phosphatase 59 Creatine Kinase Troponin I 0.23 H Total Protein 5.6 L Albumin 2.6 L Triglycerides Cholesterol Total LDL Cholesterol HDL Cholesterol Urine Color Urine Appearance Urine pH Ur Specific [place] Urine Protein Urine Glucose (UA) Urine Ketones Urine Blood Urine Nitrite Urine Bilirubin Urine Urobilinogen Ur Leukocyte Esterase Urine WBC (Auto) Urine RBC (Auto) Urine Casts (Auto) U Epithel Cells (Auto) Urine Bacteria (Auto) Blood Type Antibody Screen Active Medications Generic Name Dose Route Start Last Admin Trade Name Olga PRN Reason Stop Dose Admin Chlorhexidine Gluconate 1 applic 07/07/19 22:00 Hibiclens For Decolonization - TP HS MATILDE Heparin Sodium (Porcine) 5,000 unit 07/07/19 14:00 Heparin - SQ TID MATILDE Sodium Chloride 1,000 mls @ 75 mls/hr 07/06/19 23:45 07/07/19 00:26 Normal Saline - IV 75 mls/hr ASDIR MATILDE Administration Ceftriaxone Sodium 1 gm/ 50 mls @ 100 mls/hr 07/07/19 10:00 07/07/19 10:09 Dextrose IVPB 100 mls/hr DAILY MATILDE Administration Protocol Metronidazole 500 mg in 100 mls @ 100 mls/hr 07/07/19 10:00 07/07/19 10:08 Flagyl 500mg Premixed Ivpb - IVPB 100 mls/hr Q8H-IV MATILDE Administration Levetiracetam 500 mg 07/07/19 10:30 07/07/19 11:24 Keppra Injection - IVPB 500 mg BID MATILDE Administration Mupirocin 1 applic 07/07/19 10:00 07/07/19 11:23 Bactroban Ointment (For Decolonization) - NS 07/12/19 09:59 1 applic BID MATILDE Administration ASSESSMENT/PLAN: This is an 89 yo F with a PMH of dementia, Parkinson's, depression, HTN, L side CVA, seizure disorder admitted to ICU to r/o CVA, acute respiratory failure, with possible status epilepticus. R/O CVA Status Epilepticus , hx of seizure disorder Acute respiratory failure HTN Neuro-> r/o CVA/status epilepticus -Head CT: reviewed no acute interval change. -low suspicion of stroke as primary diagnosis - EEG done awaiting report -Neuro recs (Dr. Hughes consulted) recs appreciated -c/w keppra IV 500 BID -d/c versed and fentanyl awaiting pt's response -HOB elevated - will do spontaneous breathing trials as tolerated by pt and assess mental status. Cardiovascular-> HTN -continue cardiac monitoring -Echo 02/26: normal EF , Grade I diastolic dysfunction -hold antihypertensives in setting of acute CVA -Cholesterol 242, LDL 46, HDL 81. -troponin initial negative, 2nd 0.23 third one is pending, continuing to trend -EKG: diffuse ST depressions. likely 2/2 seizure, rpt ekg pending Pulmonary-> Acute Respiratory Failure -CXR: platelike atelectasis, or scarring at Rt base, w some retrocardiac atelectasis or infiltrate. -Vent settings: Rate 14, TV 350, %O 40, Peak flow 50, PEEP 5 - ceftriaxone and flagyl management will continue for Asp PNA Renal-> hypokalemia - K-2.6, possibly 2/2 missing her olmesartan dose. Renal function normal. - 10mq X 3 - 40meq PO KCL given one time dose - awaiting rpt BMP result to assess K status. - pt making minimal urine only 30 cc today however pt not taking much in, I irrigated alvarado with sterile water and found to not be obstructed. ID -empiric Vanc, Zosyn in ED for ? Asp PNA - Dr. Greco- ceftriaxone and flagyl started F/E/N -c/w NS @ 75mls / hr -rpt BMP , continue to monitor electrolytes -hypokalemia- repleting -NPO Dispo: Spoke with pt's daughter, apparently pt's usually gives her meds in the AM but he had surgery and most likely forgot to give her the keppra. We will continue to follow the patient. Thank you for this consultative opportunity. Visit type - Emergency Visit Emergency Visit: Yes ED Registration Date: 07/06/19 Care time: The patient presented to the Emergency Department on the above date and was hospitalized for further evaluation of their emergent condition. - New Patient This patient is new to me today: Yes Date on this admission: 07/07/19 - Critical Care Critical Care patient: Yes Total Critical Care Time (in minutes): 35 Critical Care Statement: The care of this patient involved high complexity decision making to prevent further life threatening deterioration of the patient 's condition and/or to evaluate & treat vital organ system(s) failure or risk of failure. - Discharge Referral Referred to [facility] No ATTENDING PHYSICIAN STATEMENT I saw and evaluated the patient. I reviewed the resident's note and discussed the case with the resident. I agree with the resident's findings and plan as documented. SUBJECTIVE: OBJECTIVE: ASSESSMENT AND PLAN:
--- NOTE | 2019-07-07 12:04 | CONS ---
DATE OF CONSULTATION: DATE OF DICTATION: 07/07/2019 INFECTIOUS DISEASE CONSULTATION REQUESTED BY: The hospitalist service. HISTORY OF PRESENT ILLNESS: This is an 89-year-old woman, medical history of dementia, Parkinson disease, prior CVA, seizure disorder. She lives at home with her family. She was noted yesterday to develop acute onset of facial droop followed by a witnessed seizure at home. EMS was called. She was brought to the emergency room where she was being bagged with poor mental status and she was subsequently intubated by the ER staff. She was given vancomycin and Zosyn and transferred to the ICU. She was also loaded with Keppra. She is currently on a fentanyl and Versed drip. Per the family there were no recent fevers, chills, syncope, vomiting, urinary or GI symptoms. There is no history of any recent travel. PAST MEDICAL HISTORY: Notable for dementia, Parkinson disease, prior CVA, hypertension., seizure disorder. PAST SURGICAL HISTORY: Notable for left hip replacement. ALLERGIES: She has no known drug allergies. MEDICATION LIST: Is not confirmed but includes Sinemet, Aricept, Lexapro, hydrochlorothiazide, Benicar, Seroquel and Keppra. FAMILY HISTORY: Not available. SOCIAL HISTORY: She resides with her family. REVIEW OF SYSTEMS: Was as per HPI. PHYSICAL EXAMINATION:Vital Signs: Her temperature is 97.9, pulse is 61, blood pressure 148/56, respiratory rate 14. She is on a ventilator with FIO2 of 40%. General: She is on Versed and fentanyl and sedated. HEENT: She is normocephalic. Eyes are anicteric. Neck: Supple. Lungs: Have diminished breath sounds at the bases. Heart: Regular rate and rhythm. Abdomen: Soft, nontender. Extremities: Without edema. Skin: She has no rash. LABORATORY DATA: White count is 16, hemoglobin 10.6, platelets are 312. Her INR is normal. Her BUN is 10 and creatinine is 0.8. Potassium is 2.6. Her LFTs are normal. Troponin is 0.23. Urinalysis is negative. Urine and blood cultures have been sent. Chest x-ray shows atelectasis of the right base with a question of a left retrocardiac infiltrate and head CT is reported as no definite change compared to prior, marked periventricular and subcortical chronic microvascular ischemic changes, persistent versus recurrent bilateral mastoid fluid collection. ASSESSMENT: In summary this is an elderly woman who was admitted with what appears to be a seizure disorder, cannot rule out cerebrovascular accident. She does have leukocytosis, unclear etiology, possible aspiration. RECOMMENDATIONS: respiratory failure- Would treat her with ceftriaxone and Flagyl at this time and obtain sputum cultures and with further neurologic evaluation pending. ?cva ?breakthrough seizure history of PD and dementia RENETTA TORO M.D. [id number] MTDD
[2019-07-07] MEDS ORDERED: FENTANYL INJECTION 500 MCG in DEXTROSE 5%-WATER - 90 ML IVPB SCH (12:15)
[2019-07-07 12:41] LABS: BLOOD UREA NITROGEN 11.1 mg/dL (7-18); CALCIUM 8.3 mg/dL (8.5-10.1); CREATININE 0.9 mg/dL (0.55-1.3); POTASSIUM 3.5 mmol/L (3.5-5.1)
[2019-07-07] MEDS: HEPARIN NA (PORCINE) 5,000 UNITS/ML 1ML VIAL SQ SCH ×2 (13:37→22:01)
--- NOTE | 2019-07-07 19:45 | CON.NEURO ---
Consult - Past Medical History [employer]: Yes: Alzheimer's, CVA, Dementia, Seizure Cardio/Vascular: Yes: HTN Pulmonary: Yes: Pneumonia Psych: Yes: Depression - Past Surgical History Past Surgical History: Yes: None - Alcohol/Substance Use Hx Alcohol Use: No - Smoking History Smoking history: Unknown if ever smoked Have you smoked in the past 12 months: No Aproximately how many cigarettes per day: 0 Home Medications - Allergies Allergies/Adverse Reactions: Allergies Allergy/AdvReac Type Severity Reaction Status Date / Time No Known Allergies Allergy Verified 07/06/19 21:45 - Home Medications Home Medications: Ambulatory Orders Carbidopa/Levodopa 25/100 [Sinemet 25/100 -] 1 each PO TID 07/05/18 Donepezil HCl [Aricept] 10 mg PO DAILY 07/05/18 Escitalopram Oxalate [Lexapro -] 10 mg PO DAILY 07/05/18 Olmesartan Medoxomil [Benicar] 20 mg PO DAILY 07/05/18 Quetiapine Fumarate [Seroquel -] 25 mg PO BID 07/05/18 levETIRAcetam [Keppra -] 500 mg PO BID 07/05/18 Acetaminophen [Tylenol .Regular Strength -] 650 mg PO Q6H PRN tablet 07/12/18 Carbidopa/Levodopa 25/100 [Sinemet 25/100 -] 1 each PO BID tablet 07/12/18 Donepezil HCl [Aricept -] 10 mg PO DAILY tablet 07/12/18 levETIRAcetam [Keppra -] 750 mg PO BID tablet 07/12/18 Hydrochlorothiazide [Hctz -] 25 mg PO DAILY #30 tablet 07/14/18 Physical Exam-Neuro Vital Signs: Vital Signs Temperature 99.1 F 07/07/19 16:54 Pulse Rate 60 07/07/19 18:00 Respiratory Rate 14 07/07/19 18:00 Blood Pressure 125/39 L 07/07/19 18:00 O2 Sat by Pulse Oximetry (%) 100 07/07/19 07:54 Labs: CBC, BMP 07/07/19 06:35 07/07/19 11:57 INR, PTT INR 0.96 (0.83-1.09) 07/06/19 21:40 Assessment/Plan cc Episod seizure HPI 89 year old female history of Dementia, PD,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 Patient initally noted to have left sided face droopiness followed by generalized tonic clonic seizure, she was brought to hospital and was intubated. Patient had ct head, which was no acute findings. She is intubated and sedated and had not had any seizure since yesterday . Her wbc were going up and she is on Abx. No seizure activity was seen. I spent 35 minute doing critical care PAST MEDICAL HISTORY: CVA right valorie, Dementia, Depression, Parkinson's, HTN, HLD, seizures PAST SURGICAL HISTORY: left hip replacement 2016 Social History: Smoking:no Alcohol:no Drugs: no Family History: no relevant history Allergies: No Known Allergies Allergy (Verified 07/06/19 21:45) HOME MEDICATIONS: Home Medications Medication Instructions Recorded Carbidopa/Levodopa 25/100 [Sinemet 1 each PO TID 07/05/18 25100 -] Donepezil HCl [Aricept] 10 mg PO DAILY 07/05/18 Escitalopram Oxalate [Lexapro -] 10 mg PO DAILY 07/05/18 Olmesartan Medoxomil [Benicar] 20 mg PO DAILY 07/05/18 Quetiapine Fumarate [Seroquel -] 25 mg PO BID 07/05/18 levETIRAcetam [Keppra -] 500 mg PO BID 07/05/18 Acetaminophen [Tylenol .Regular 650 mg PO Q6H PRN tablet 07/12/18 Strength -] Carbidopa/Levodopa 25/100 [Sinemet 1 each PO BID tablet 07/12/18 25100 -] Donepezil HCl [Aricept -] 10 mg PO DAILY tablet 07/12/18 levETIRAcetam [Keppra -] 750 mg PO BID tablet 07/12/18 Hydrochlorothiazide [Hctz -] 25 mg PO DAILY #30 tablet 07/14/18 ROS,FH reviewed in chart NEUROLOGICAL EXAMINATION Patient is intuabted and sedated, afebrile, VSS, pupils reactive,opens eye spontaneously no seizure activity was seen, corneal reflex are present Patient is sedated and detail neuro exam is not possible ct head unremarkable Assessment/Plan 89 year old female history of htn, pd, stroke with residual right hemiparesis, came with ? left face paralysis and generalized tonic cloniz seizure activity. Cause of seizure could be breakthrough seizure due to inadequate medication, new stroke or intercurrent illness( infection ) Plan: suggest to increase keppra 1500 mg iv bid, for short term, once stable can be reduced to 1 gm bid - repeat ct head to see if any new stroke - eeg cab be obtained for subclinical status - supportive care Thanking you so much Davie Hughes MD
[2019-07-07] MEDS ORDERED: fentaNYL CITRATE 250 MCG/5 ML VIAL ONE (19:52)
[2019-07-07] MEDS: CHLORHEXIDINE GLUCONATE 4% CLEANSER FOR DECOLONIZATION TP SCH (22:04)
[2019-07-07] MEDS: MIDAZOLAM HCL 2 MG/2 ML SINGLE DOSE VIAL IVPUSH PRN (22:04)
[2019-07-08] MEDS ORDERED: ACETAMINOPHEN 1000 MG/100 ML VIAL (NON FORMULARY) IVPB ONE (02:21)
[2019-07-08] MEDS: HEPARIN NA (PORCINE) 5,000 UNITS/ML 1ML VIAL SQ SCH ×3 (05:30→22:06)
[2019-07-08 06:24] LABS: BASO % 0.8 % (0-2.0); EOS % 0.8 % (0-4.5); HEMATOCRIT 24.2 % (32.4-45.2); HEMOGLOBIN 8.3 GM/dL (10.7-15.3); LYMPH % 14.4 % (8-40); MCH 30.5 pg (25.7-33.7); MCHC 34.1 g/dl (32.0-36.0); MEAN CELL VOLUME 89.2 fl (80-96); MEAN PLT VOLUME 8.5 fl (7.5-11.1); MONO % 7.9 % (3.8-10.2); NEUT % 76.1 % (42.8-82.8); PLATELET COUNT 239 K/MM3 (134-434); RBC 2.71 M/mm3 (3.60-5.2); RDW 15.5 % (11.6-15.6); WHITE BLOOD COUNT 10.3 K/mm3 (4.0-10.0)
[2019-07-08 07:22] LABS: ALBUMIN 2.1 g/dl (3.4-5.0); BILIRUBIN,TOTAL 0.6 mg/dL (0.2-1); BLOOD UREA NITROGEN 13.4 mg/dL (7-18); CALCIUM 7.6 mg/dL (8.5-10.1); MAGNESIUM 1.5 mg/dL (1.8-2.4); PHOSPHOROUS 1.7 mg/dL (2.5-4.9); TOT PROT 4.4 g/dl (6.4-8.2)
[2019-07-08] MEDS ORDERED: PT OWN MED DRAWER 7, Y5N ONE (08:10)
[2019-07-08] MEDS ORDERED: MAGNESIUM SULF 50% (8.12 MEQ/2 ML-1 GM VIAL) IVPB ONE (08:45)
[2019-07-08] MEDS ORDERED: NAPH,MB-DB/K PH,MBDB POWDER PACKET PO ONE (08:45)
[2019-07-08] MEDS: KCL 10 MEQ IVPB 10 MEQ/100 ML INFUS.BAG IVPB SCH ×3 (08:56→11:12)
[2019-07-08] MEDS ORDERED: cefTRIAXone SODIUM 1 GM VIAL ONE (09:04)
[2019-07-08] MEDS ORDERED: DEXTROSE 5%-WATER - 50 ML IVPB ONE (09:04)
[2019-07-08] MEDS: CEFTRIAXONE 1 GM in DEXTROSE 5%-WATER - 50 ML IVPB SCH (09:11)
[2019-07-08] MEDS: levETIRAcetam 500 MG/5 ML INJECTION VIAL IVPB SCH ×2 (09:11→22:06)
[2019-07-08] MEDS: MUPIROCIN 2% TOPICAL OINTMENT FOR DECOLONIZATION NS SCH ×2 (09:25→22:07)
[2019-07-08] MEDS ORDERED: levETIRAcetam 500 MG/5 ML INJECTION VIAL IVPB SCH (10:00)
--- NOTE | 2019-07-08 12:05 | PN ---
Teaching Attending Note Name of Resident: Ruiz Martinez ATTENDING PHYSICIAN STATEMENT I saw and evaluated the patient. I reviewed the resident's note and discussed the case with the resident. I agree with the resident's findings and plan as documented. SUBJECTIVE: Pt seen and examined in the ICU. Remains intubated, sedated. Apneic when placed on CPAP/PS. No seizures noted. OBJECTIVE: Vital Signs Period Temp Pulse Resp BP Sys/Rowland Pulse Ox Last 24 Hr 99.0 F-100.3 F 49-89 14-25 101-151/37-66 100-100 Intake & Output 07/05/19 07/06/19 07/07/19 07/08/19 23:59 23:59 23:59 23:59 Intake Total 2477 940.3 Output Total 45 1200 Balance -45 1277 940.3 Weight 49.895 kg 40.88 kg 42.8 kg Gen: intubated, sedated Heart: RRR Lung: decreased breath sounds at the bases Abd: soft, nontender Ext: no edema CBC, BMP 07/08/19 06:02 07/08/19 06:02 Active Medications Chlorhexidine Gluconate (Hibiclens For Decolonization -) 1 applic TP HS MATILDE Last Admin: 07/07/19 22:04 Dose: 1 applic Heparin Sodium (Porcine) (Heparin -) 5,000 unit SQ TID MATILDE Last Admin: 07/08/19 05:30 Dose: 5,000 unit Sodium Chloride (Normal Saline -) 1,000 mls @ 75 mls/hr IV ASDIR MATILDE Last Admin: 07/07/19 23:55 Dose: 75 mls/hr Ceftriaxone Sodium 1 gm/ (Dextrose) 50 mls @ 100 mls/hr IVPB DAILY [facility]; Protocol Last Admin: 07/08/19 09:11 Dose: 100 mls/hr Metronidazole (Flagyl 500mg Premixed Ivpb -) 500 mg in 100 mls @ 100 mls/hr IVPB Q8H-IV MATILDE Last Admin: 07/08/19 09:11 Dose: 100 mls/hr Levetiracetam (Keppra Injection -) 500 mg IVPB BID MATILDE Last Admin: 07/08/19 09:11 Dose: 500 mg Midazolam HCl (Versed -) 2 mg IVPUSH ONCE PRN PRN Reason: AGITATION Last Admin: 07/07/19 22:04 Dose: 2 mg Mupirocin (Bactroban Ointment (For Decolonization) -) 1 applic NS BID MATILDE Stop: 07/12/19 09:59 Last Admin: 07/08/19 09:25 Dose: 1 applic ASSESSMENT AND PLAN: Acute Respiratory Failure Breakthrough Seizure r/o Pneumonia Seizure Disorder +Troponins likely Demand Ischemia h/o CVA Parkinsons Dementia HTN - continue antiepileptics - antibiotics per ID - f/u cultures - replete lytes - hold all sedation to assess mental status - spontaneous breathing trials as tolerated when mental status improved - DVT prophylaxis - continue ICU monitoring critical care time spent in reviewing chart, evaluating patient and formulating plan 35 min
[2019-07-08] MEDS ORDERED: MIDAZOLAM HCL 2 MG/2 ML SINGLE DOSE VIAL ONE ×2 (12:35→23:22)
--- NOTE | 2019-07-08 13:25 | PN ---
Physical Exam: SUBJECTIVE: Patient seen and examined at bedside. Less sedated today, d/c fentanyl drip continuing versed IVpush. If drip is needed can give propofol. OBJECTIVE: Vital Signs Period Temp Pulse Resp BP Sys/Rowland Pulse Ox Last 24 Hr 98.8 F-100.3 F 49-89 14-25 101-151/37-66 100-100 GENERAL: The patient is awake off drip sedation but still nonresponsive to commands, able to open eyes to command only. HEAD: Normal with no signs of trauma. EYES: Pinpoint pupils non reactive, conjunctiva clear. No ptosis. NECK: supple. LUNGS: Breath sounds reduced, coarse breath sounds b/l. HEART: Regular rate and rhythm, S1, S2 without murmur, rub or gallop. ABDOMEN: Soft, nontender, nondistended, hypoactive bowel sounds, no guarding, no rebound. EXTREMITIES: warm, well-perfused, no edema. PSYCH: sedated SKIN: Warm, dry. Laboratory Results - last 24 hr 07/08/19 07/08/19 06:02 06:02 WBC 10.3 H RBC 2.71 L Hgb 8.3 L Hct 24.2 L D MCV 89.2 MCH 30.5 MCHC 34.1 RDW 15.5 Plt Count 239 D MPV 8.5 Absolute Neuts (auto) 7.8 Neutrophils % 76.1 Lymphocytes % 14.4 D Monocytes % 7.9 Eosinophils % 0.8 D Basophils % 0.8 Nucleated RBC % 0 Sodium 142 Potassium 3.0 L Chloride 110 H Carbon Dioxide 23 Anion Gap 9 BUN 13.4 Creatinine 1.0 Est GFR (CKD-EPI)AfAm 58.66 Est GFR (CKD-EPI)NonAf 50.61 Random Glucose 87 Calcium 7.6 L Phosphorus 1.7 L Magnesium 1.5 L Total Bilirubin 0.6 AST 35 ALT 7 L Alkaline Phosphatase 45 Total Protein 4.4 L Albumin 2.1 L Active Medications Generic Name Dose Route Start Last Admin Trade Name Freq PRN Reason Stop Dose Admin Chlorhexidine Gluconate 1 applic 07/07/19 22:00 07/07/19 22:04 Hibiclens For Decolonization - TP 1 applic HS MATILDE Administration Heparin Sodium (Porcine) 5,000 unit 07/07/19 14:00 07/08/19 05:30 Heparin - SQ 5,000 unit TID MATILDE Administration Sodium Chloride 1,000 mls @ 75 mls/hr 07/06/19 23:45 07/07/19 23:55 Normal Saline - IV 75 mls/hr ASDIR MTAILDE Administration Ceftriaxone Sodium 1 gm/ 50 mls @ 100 mls/hr 07/07/19 10:00 07/08/19 09:11 Dextrose IVPB 100 mls/hr DAILY MATILDE Administration Protocol Metronidazole 500 mg in 100 mls @ 100 mls/hr 07/07/19 10:00 07/08/19 09:11 Flagyl 500mg Premixed Ivpb - IVPB 100 mls/hr Q8H-IV MATILDE Administration Levetiracetam 500 mg 07/08/19 07:34 07/08/19 09:11 Keppra Injection - IVPB 500 mg BID MATILDE Administration Midazolam HCl 2 mg 07/07/19 12:07 07/07/19 22:04 Versed - IVPUSH 2 mg ONCE PRN Administration AGITATION Mupirocin 1 applic 07/07/19 10:00 07/08/19 09:25 Bactroban Ointment (For Decolonization) - NS 07/12/19 09:59 1 applic BID MATILDE Administration ASSESSMENT/PLAN: This is an 89 yo F with a PMH of dementia, Parkinson's, depression, HTN, L side CVA, seizure disorder admitted to ICU to r/o CVA, acute respiratory failure, with possible status epilepticus. R/O CVA Status Epilepticus , hx of seizure disorder Acute respiratory failure HTN Neuro-> r/o CVA/status epilepticus - intubated on cpap. -low suspicion of stroke as primary diagnosis - EEG done awaiting report -Neuro recs (Dr. Hughes consulted) recs rpt head CT. -c/w keppra IV 500 BID -d/c fentanyl drip only IV push versed prn. -HOB elevated - she failed spontaneous breathing trial will continue to do so as tolerated by pt and assess mental status. Cardiovascular-> HTN -continue cardiac monitoring -holding antihypertensives in setting of acute CVA - trop profile negative Pulmonary-> Acute Respiratory Failure -CXR: persistent Lt dense base atelectasis or infiltrate with fluid. -Vent settings: Rate 14, TV 350, 35%, Peak flow 50, PEEP 5 - ceftriaxone and flagyl management will continue for Asp PNA Renal-> hypokalemia - K-3, possibly 2/2 missing her olmesartan dose or poor oral intake. - Renal function normal. - 10mq X 3 given for K of 3. - pt making minimal urine 75cc today however pt not taking much in, alvarado irrigated yesterday. ID - empiric Vanc, Zosyn in ED for ? Asp PNA - Dr. Greco- ceftriaxone and flagyl started F/E/N -c/w NS @ 75mls / hr -rpt BMP , continue to monitor electrolytes -hypokalemia- repleting -NPO Dispo: We will continue to follow the patient. Thank you for this consultative opportunity. Visit type - Emergency Visit Emergency Visit: Yes ED Registration Date: 07/06/19 Care time: The patient presented to the Emergency Department on the above date and was hospitalized for further evaluation of their emergent condition. - New Patient This patient is new to me today: No - Critical Care Critical Care patient: Yes Total Critical Care Time (in minutes): 35 Critical Care Statement: The care of this patient involved high complexity decision making to prevent further life threatening deterioration of the patient 's condition and/or to evaluate & treat vital organ system(s) failure or risk of failure. - Discharge Referral Referred to [facility] Med P.C.: No ATTENDING PHYSICIAN STATEMENT I saw and evaluated the patient. I reviewed the resident's note and discussed the case with the resident. I agree with the resident's findings and plan as documented. SUBJECTIVE: OBJECTIVE: ASSESSMENT AND PLAN:
[2019-07-08] MEDS: MIDAZOLAM HCL 2 MG/2 ML SINGLE DOSE VIAL IVPUSH PRN (14:18)
--- NOTE | 2019-07-08 15:18 | PN ---
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 Patient initally noted to have left sided face droopiness followed by generalized tonic clonic seizure, she was brought to hospital and was intubated. Patient had ct head, which was no acute findings. She is intubated and sedated and had not had any seizure since yesterday . Her wbc were going up and she is on Abx. No seizure activity since [place]. She is waiting for ct head . Keppra is 500 mg bid , max dose due to low creatinine clearance. Spoke to Nursing and house staff NEUROLOGICAL EXAMINATION Patient is intuabted and sedated, afebrile, VSS,( off sedation) pupils reactive,opens eye spontaneously no seizure activity was seen, corneal reflex are present Patient is sedated and detail neuro exam is not possible ct head unremarkable EEG pending Assessment/Plan 89 year old female history of htn, pd, stroke with residual right hemiparesis, came with ? left face paralysis and generalized tonic cloniz seizure activity. Cause of seizure could be breakthrough seizure due to inadequate medication, new stroke or intercurrent illness( infection ) Plan: continue keppra 500 mg iv bid - waiting for Repeat ct head - Clinically stable, no more seizure since admission - supportive care Thanking you so much Davie Hughes MD
--- NOTE | 2019-07-08 15:31 | PN ---
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, Physician Chief Complaint: sedated and intubated Grimaces to pain History of Present Illness: The patient is an 89 year old female with a past medical history of CVA (with residual weakness of the right extremities), Parkinsons disease, HTN, HLD, and epilepsy brought in today by EMS for evaluation of seizure. As per EMS, the patient developed right sided facial drooping and then had a seizure. - Current Medication List Current Medications: Active Medications Chlorhexidine Gluconate (Hibiclens For Decolonization -) 1 applic TP HS [facility]IL[facility] Last Admin: 07/07/19 22:04 Dose: 1 applic Heparin Sodium (Porcine) (Heparin -) 5,000 unit SQ TID [facility] Last Admin: 07/08/19 14:15 Dose: 5,000 unit Sodium Chloride (Normal Saline -) 1,000 mls @ 75 mls/hr IV ASDIR [facility] Last Admin: 07/07/19 23:55 Dose: 75 mls/hr Ceftriaxone Sodium 1 gm/ (Dextrose) 50 mls @ 100 mls/hr IVPB DAILY [facility]; Protocol Last Admin: 07/08/19 09:11 Dose: 100 mls/hr Metronidazole (Flagyl 500mg Premixed Ivpb -) 500 mg in 100 mls @ 100 mls/hr IVPB Q8H-IV [facility] Last Admin: 07/08/19 09:11 Dose: 100 mls/hr Levetiracetam (Keppra Injection -) 500 mg IVPB BID [facility] Last Admin: 07/08/19 09:11 Dose: 500 mg Midazolam HCl (Versed -) 2 mg IVPUSH ONCE PRN PRN Reason: AGITATION Last Admin: 07/08/19 14:18 Dose: 2 mg Mupirocin (Bactroban Ointment (For Decolonization) -) 1 applic NS BID [facility] Stop: 07/12/19 09:59 Last Admin: 07/08/19 09:25 Dose: 1 applic - Objective Vital Signs: Vital Signs Temperature 98.8 F 07/08/19 13:05 Pulse Rate 56 L 07/08/19 13:05 Respiratory Rate 14 07/08/19 13:05 Blood Pressure 129/55 L 07/08/19 13:05 O2 Sat by Pulse Oximetry (%) 100 07/08/19 10:59 Constitutional: Yes: Thin, Other (sedated on midazolam) Eyes: Yes: WNL, Conjunctiva Clear, EOM Intact HENT: Yes: WNL, Atraumatic, Normocephalic Neck: Yes: WNL, Supple, Trachea Midline Cardiovascular: Yes: Regular Rate and Rhythm, Bradycardia, Other (on continuos cardiac monitoring) Respiratory: Yes: Regular, Diminished (at bases) Gastrointestinal: Yes: Normal Bowel Sounds, Soft, Other (OGT) ...Rectal Exam: Yes: Deferred Genitourinary: Yes: Torrez Present Breast(s): Yes: WNL Musculoskeletal: Yes: Other (sedated) Extremities: Yes: WNL Edema: Yes Edema: LLE: Trace, RLE: Trace Peripheral Pulses WNL: Yes Integumentary: Yes: WNL Neurological: Yes: Other (sedated) Psychiatric: Yes: Other (sedated) Labs: CBC, BMP 07/08/19 06:02 07/08/19 06:02 INR, PTT INR 0.96 (0.83-1.09) 07/06/19 21:40 - ....Imaging Chest X-ray: Image Reviewed (bibasilar atelectasis) Problem List - Problems (1) Respiratory failure Assessment/Plan: intubated Vent settings: Rate 14, TV 350, FIO2 35, Peak flow 50, PEEP 5 -CXR: platelike atelectasis, some retrocardiac atelectasis vs infiltrate. - ceftriaxone and flagyl management will continue for Asp PNA -spontaneous breathing trials as tolerated by pt and assess mental status vent management as per ICU team Code(s): J96.90 - RESPIRATORY FAILURE, UNSP, UNSP W HYPOXIA OR HYPERCAPNIA (2) HLD (hyperlipidemia) Assessment/Plan: c/w atrorvastatin once extubated Code(s): E78.5 - HYPERLIPIDEMIA, UNSPECIFIED (3) HTN (hypertension) Assessment/Plan: continue cardiac monitoring -hold antihypertensives in setting of possible CVA -troponin initial negative, 2nd 0.23 third .18 -EKG: diffuse ST depressions on initial EKG, 07/07no lobger ST depression in ant leads, nonspecific twave abnormalities Code(s): I10 - ESSENTIAL (PRIMARY) HYPERTENSION (4) Hypokalemia Assessment/Plan: maintain K>4.0, Mg > 2.0 replete as needed Code(s): E87.6 - HYPOKALEMIA (5) Leukocytosis Assessment/Plan: wbc 10.0 being treated for potential aspitaion pns c/e ceftriaxone, flagyl appreciate ID consultation Code(s): D72.829 - ELEVATED WHITE BLOOD CELL COUNT, UNSPECIFIED (6) Dementia Code(s): F03.90 - UNSPECIFIED DEMENTIA WITHOUT BEHAVIORAL DISTURBANCE (7) Status epilepticus Assessment/Plan: Head CT with no acute interval change. -low suspicion of CVA - EEG done pedning report -Neuro recs (Dr. Hughes consulted) recs appreciated -c/w keppra IV 500 BID, questionable missed doses at home -interuption of sedation to assess responsne -HOB elevated 30 degrees - repeat CT head pending Code(s): G40.901 - EPILEPSY, UNSP, NOT INTRACTABLE, WITH STATUS EPILEPTICUS (8) Prophylactic measure Assessment/Plan: FEN NPO monitor electrolyes IVF DVT heparin tid Dispo maintain in ICU full code discharge planning Code(s): Z29.9 - ENCOUNTER FOR PROPHYLACTIC MEASURES, UNSPECIFIED Visit type - Emergency Visit Emergency Visit: Yes ED Registration Date: 07/06/19 Care time: The patient presented to the Emergency Department on the above date and was hospitalized for further evaluation of their emergent condition. - New Patient This patient is new to me today: No - Critical Care Critical Care patient: Yes Total Critical Care Time (in minutes): 35 Critical Care Statement: The care of this patient involved high complexity decision making to prevent further life threatening deterioration of the patient 's condition and/or to evaluate & treat vital organ system(s) failure or risk of failure. - Discharge Referral Referred to [facility] Med P.C.: No
--- NOTE | 2019-07-08 17:06 | PN ---
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 (short form) - Note 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: remains intubated no pressors Vital Signs Period Temp Pulse Resp BP Sys/Rowland Pulse Ox Last 24 Hr 98.8 F-100.3 F 49-89 14-25 101-142/37-69 98-100 cor-rrr lungs decreased bs at at bases abd soft,nt ext no edema CBC, BMP 07/08/19 06:02 07/08/19 06:02 Microbiology 07/06/19 11:57 Blood - Peripheral Venous Blood Culture - Preliminary NO GROWTH OBTAINED AFTER 24 HOURS, INCUBATION TO CONTINUE FOR 4 DAYS. 07/07/19 11:00 Sputum - Endotrachea Suction/Ventilator Gram Stain - Final 07/07/19 11:00 Sputum - Endotrachea Suction/Ventilator Sputum Culture - Preliminary NORMAL RESPIRATORY JULIO 07/06/19 21:40 Urine - Urine Torrez Urine Culture - Final NO GROWTH OBTAINED 07/06/19 21:42 Blood - Peripheral Venous Blood Culture - Preliminary NO GROWTH OBTAINED AFTER 24 HOURS, INCUBATION TO CONTINUE FOR 4 DAYS. Current Medications Chlorhexidine Gluconate (Hibiclens For Decolonization -) 1 applic TP HS [facility]IL[facility] Last Admin: 07/07/19 22:04 Dose: 1 applic Heparin Sodium (Porcine) (Heparin -) 5,000 unit SQ TID MATILDE Last Admin: 07/08/19 14:15 Dose: 5,000 unit Sodium Chloride (Normal Saline -) 1,000 mls @ 75 mls/hr IV ASDIR MATIL[facility] Last Admin: 07/07/19 23:55 Dose: 75 mls/hr Ceftriaxone Sodium 1 gm/ (Dextrose) 50 mls @ 100 mls/hr IVPB DAILY [facility]; Protocol Last Admin: 07/08/19 09:11 Dose: 100 mls/hr Metronidazole (Flagyl 500mg Premixed Ivpb -) 500 mg in 100 mls @ 100 mls/hr IVPB Q8H-IV [facility]IL[facility] Last Admin: 07/08/19 09:11 Dose: 100 mls/hr Levetiracetam (Keppra Injection -) 500 mg IVPB BID MATIL[facility] Last Admin: 07/08/19 09:11 Dose: 500 mg Midazolam HCl (Versed -) 2 mg IVPUSH ONCE PRN PRN Reason: AGITATION Last Admin: 07/08/19 14:18 Dose: 2 mg Mupirocin (Bactroban Ointment (For Decolonization) -) 1 applic NS BID MATILDE Stop: 07/12/19 09:59 Last Admin: 07/08/19 09:25 Dose: 1 applic a/p seizure r/o cva respiratory failure cannot r/o left base infiltrate history of PD continue rocephin/flagyl f/u with neurology Problem List - Problems (1) Seizure disorder Code(s): G40.909 - EPILEPSY, UNSP, NOT INTRACTABLE, WITHOUT STATUS EPILEPTICUS (2) CVA (cerebral vascular accident) Code(s): I63.9 - CEREBRAL INFARCTION, UNSPECIFIED (3) Leukocytosis Code(s): D72.829 - ELEVATED WHITE BLOOD CELL COUNT, UNSPECIFIED (4) Aspiration pneumonia Code(s): J69.0 - PNEUMONITIS DUE TO INHALATION OF FOOD AND VOMIT (5) Respiratory failure Code(s): J96.90 - RESPIRATORY FAILURE, UNSP, UNSP W HYPOXIA OR HYPERCAPNIA
[2019-07-08] MEDS: CHLORHEXIDINE GLUCONATE 4% CLEANSER FOR DECOLONIZATION TP SCH (22:07)
[2019-07-08] MEDS: SODIUM CHLORIDE 1,000 ML IV SCH (23:45)
[2019-07-09] MEDS: HEPARIN NA (PORCINE) 5,000 UNITS/ML 1ML VIAL SQ SCH ×3 (06:07→21:08)
[2019-07-09] MEDS ORDERED: MIDAZOLAM HCL 2 MG/2 ML SINGLE DOSE VIAL IVPUSH PRN (07:04)
[2019-07-09] MEDS: KCL 10 MEQ IVPB 10 MEQ/100 ML INFUS.BAG IVPB SCH ×3 (08:12→11:02)
[2019-07-09 08:28] LABS: BASO % 0.7 % (0-2.0); EOS % 1.4 % (0-4.5); HEMATOCRIT 24.8 % (32.4-45.2); HEMOGLOBIN 8.3 GM/dL (10.7-15.3); LYMPH % 8.7 % (8-40); MCH 30.2 pg (25.7-33.7); MCHC 33.5 g/dl (32.0-36.0); MEAN CELL VOLUME 90.1 fl (80-96); MEAN PLT VOLUME 8.6 fl (7.5-11.1); MONO % 6.9 % (3.8-10.2); NEUT % 82.3 % (42.8-82.8); PLATELET COUNT 256 K/MM3 (134-434); RBC 2.75 M/mm3 (3.60-5.2); RDW 15.7 % (11.6-15.6); WHITE BLOOD COUNT 9.3 K/mm3 (4.0-10.0)
--- NOTE | 2019-07-09 08:52 | PN ---
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, Physician Chief Complaint: Patient extubated this morning.Grimaces to pain. Not follow commands History of Present Illness: The patient is an 89 year old female with a past medical history of CVA (with residual weakness of the right extremities), Parkinsons disease, HTN, HLD, and epilepsy brought in today by EMS for evaluation of seizure. As per EMS, the patient developed right sided facial drooping and then had a seizure. - Current Medication List Current Medications: Active Medications Chlorhexidine Gluconate (Hibiclens For Decolonization -) 1 applic TP HS [facility] Last Admin: 07/08/19 22:07 Dose: 1 applic Heparin Sodium (Porcine) (Heparin -) 5,000 unit SQ TID MATILDE Last Admin: 07/09/19 06:07 Dose: 5,000 unit Sodium Chloride (Normal Saline -) 1,000 mls @ 75 mls/hr IV ASDIR [facility] Last Admin: 07/08/19 23:45 Dose: 75 mls/hr Ceftriaxone Sodium 1 gm/ (Dextrose) 50 mls @ 100 mls/hr IVPB DAILY [facility]; Protocol Last Admin: 07/08/19 09:11 Dose: 100 mls/hr Metronidazole (Flagyl 500mg Premixed Ivpb -) 500 mg in 100 mls @ 100 mls/hr IVPB Q8H-IV [facility]IL[facility] Last Admin: 07/09/19 03:24 Dose: 100 mls/hr Potassium Chloride (Potassium Chloride 10 Meq Premix Ivpb -) 10 meq in 100 mls @ 100 mls/hr IVPB Q60M [facility] Stop: 07/09/19 10:44 Last Admin: 07/09/19 08:12 Dose: 100 mls/hr Levetiracetam (Keppra Injection -) 500 mg IVPB BID [facility] Last Admin: 07/08/19 22:06 Dose: 500 mg Midazolam HCl (Versed -) 2 mg IVPUSH Q4H PRN PRN Reason: AGITATION Last Admin: 07/09/19 07:43 Dose: 2 mg Mupirocin (Bactroban Ointment (For Decolonization) -) 1 applic NS BID [facility] Stop: 07/12/19 09:59 Last Admin: 07/08/19 22:07 Dose: 1 applic - Objective Vital Signs: Vital Signs Temperature 99.2 F 07/09/19 02:00 Pulse Rate 63 07/09/19 08:23 Respiratory Rate 15 07/09/19 08:23 Blood Pressure 122/51 L 07/09/19 07:53 O2 Sat by Pulse Oximetry (%) 100 07/09/19 08:23 Constitutional: Yes: No Distress, Calm, Thin Eyes: Yes: WNL, Conjunctiva Clear, EOM Intact HENT: Yes: WNL, Atraumatic, Normocephalic Neck: Yes: WNL, Supple, Trachea Midline Cardiovascular: Yes: WNL, Regular Rate and Rhythm, Bradycardia Respiratory: Yes: Regular, On Venti-Mask (jsut extubated) Gastrointestinal: Yes: WNL, Normal Bowel Sounds, Soft ...Rectal Exam: Yes: WNL Genitourinary: Yes: Torrez Present Breast(s): Yes: WNL Musculoskeletal: Yes: Other (not able to assess) Extremities: Yes: WNL Edema: Yes Edema: LLE: Trace, RLE: Trace Peripheral Pulses WNL: Yes Integumentary: Yes: WNL Neurological: Yes: Other (just extubated not following commands) Labs: CBC, BMP 07/09/19 08:04 INR, PTT INR 0.96 (0.83-1.09) 07/06/19 21:40 Problem List - Problems (1) Respiratory failure Assessment/Plan: extubated to venti mask, oxygenating well O2 Sat >94% -CXR: platelike atelectasis, some retrocardiac atelectasis remains - ceftriaxone and flagyl management will continue for presumed Asp PNA Code(s): J96.90 - RESPIRATORY FAILURE, UNSP, UNSP W HYPOXIA OR HYPERCAPNIA (2) HLD (hyperlipidemia) Assessment/Plan: c/w atrorvastatin once extubated Code(s): E78.5 - HYPERLIPIDEMIA, UNSPECIFIED (3) HTN (hypertension) Assessment/Plan: continue cardiac monitoring -hold antihypertensives in setting of possible CVA -troponin initial negative, 2nd 0.23 third .18 -EKG: diffuse ST depressions on initial EKG, 07/07no lobger ST depression in ant leads, nonspecific twave abnormalities Code(s): I10 - ESSENTIAL (PRIMARY) HYPERTENSION (4) Hypokalemia Assessment/Plan: maintain K>4.0, Mg > 2.0 replete as needed Code(s): E87.6 - HYPOKALEMIA (5) Leukocytosis Assessment/Plan: wbc 9.3 being treated for potential aspiration pna c/e ceftriaxone, flagyl appreciate ID consultation Code(s): D72.829 - ELEVATED WHITE BLOOD CELL COUNT, UNSPECIFIED (6) Dementia Code(s): F03.90 - UNSPECIFIED DEMENTIA WITHOUT BEHAVIORAL DISTURBANCE (7) Status epilepticus Assessment/Plan: repeat Head CT with no acute interval change. -low suspicion of CVA - EEG done pedning report -Neuro recs (Dr. Hughes consulted) recs appreciated -c/w keppra IV 500 BID -HOB elevated 30 degrees Code(s): G40.901 - EPILEPSY, UNSP, NOT INTRACTABLE, WITH STATUS EPILEPTICUS (8) Prophylactic measure Assessment/Plan: FEN NPO-speech pathologist to see patient monitor electrolyes IVF DVT heparin tid Dispo maintain in ICU full code discharge planning Code(s): Z29.9 - ENCOUNTER FOR PROPHYLACTIC MEASURES, UNSPECIFIED Visit type - Emergency Visit Emergency Visit: Yes ED Registration Date: 07/06/19 Care time: The patient presented to the Emergency Department on the above date and was hospitalized for further evaluation of their emergent condition. - New Patient This patient is new to me today: No - Critical Care Critical Care patient: Yes Total Critical Care Time (in minutes): 30 Critical Care Statement: The care of this patient involved high complexity decision making to prevent further life threatening deterioration of the patient 's condition and/or to evaluate & treat vital organ system(s) failure or risk of failure. - Discharge Referral Referred to [facility] Med P.C.: No
[2019-07-09 08:55] LABS: BLOOD UREA NITROGEN 14.3 mg/dL (7-18); CALCIUM 7.8 mg/dL (8.5-10.1); CREATININE 0.9 mg/dL (0.55-1.3); PHOSPHOROUS 2.6 mg/dL (2.5-4.9); POTASSIUM 3.1 mmol/L (3.5-5.1)
[2019-07-09] MEDS ORDERED: cefTRIAXone SODIUM 1 GM VIAL ONE (09:12)
[2019-07-09] MEDS ORDERED: DEXTROSE 5%-WATER - 50 ML IVPB ONE (09:12)
[2019-07-09] MEDS: CEFTRIAXONE 1 GM in DEXTROSE 5%-WATER - 50 ML IVPB SCH (09:18)
[2019-07-09] MEDS: MUPIROCIN 2% TOPICAL OINTMENT FOR DECOLONIZATION NS SCH ×2 (09:19→21:09)
[2019-07-09] MEDS: levETIRAcetam 500 MG/5 ML INJECTION VIAL IVPB SCH ×2 (09:19→21:05)
--- NOTE | 2019-07-09 09:25 | PN ---
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 (short form) - Note 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: remains intubated no pressors opens her eyes not following commands Vital Signs Period Temp Pulse Resp BP Sys/Rowland Pulse Ox Last 24 Hr 98.8 F-100 F 47-71 14-16 107-183/37-75 98-100 cor-rrr lungs clear abd soft,nt ext no edema CBC, BMP 07/09/19 08:04 07/09/19 08:04 Microbiology 07/06/19 21:42 Blood - Peripheral Venous Blood Culture - Preliminary NO GROWTH OBTAINED AFTER 48 HOURS, INCUBATION TO CONTINUE FOR 3 DAYS. 07/06/19 11:57 Blood - Peripheral Venous Blood Culture - Preliminary NO GROWTH OBTAINED AFTER 24 HOURS, INCUBATION TO CONTINUE FOR 4 DAYS. 07/07/19 11:00 Sputum - Endotrachea Suction/Ventilator Gram Stain - Final 07/07/19 11:00 Sputum - Endotrachea Suction/Ventilator Sputum Culture - Preliminary NORMAL RESPIRATORY JULIO 07/06/19 21:40 Urine - Urine Torrez Urine Culture - Final NO GROWTH OBTAINED Current Medications Chlorhexidine Gluconate (Hibiclens For Decolonization -) 1 applic TP HS [facility] Last Admin: 07/08/19 22:07 Dose: 1 applic Heparin Sodium (Porcine) (Heparin -) 5,000 unit SQ TID [facility] Last Admin: 07/09/19 06:07 Dose: 5,000 unit Sodium Chloride (Normal Saline -) 1,000 mls @ 75 mls/hr IV ASDIR [facility] Last Admin: 07/08/19 23:45 Dose: 75 mls/hr Ceftriaxone Sodium 1 gm/ (Dextrose) 50 mls @ 100 mls/hr IVPB DAILY [facility]; Protocol Last Admin: 07/08/19 09:11 Dose: 100 mls/hr Metronidazole (Flagyl 500mg Premixed Ivpb -) 500 mg in 100 mls @ 100 mls/hr IVPB Q8H-IV [facility] Last Admin: 07/09/19 03:24 Dose: 100 mls/hr Potassium Chloride (Potassium Chloride 10 Meq Premix Ivpb -) 10 meq in 100 mls @ 100 mls/hr IVPB Q60M [facility] Stop: 07/09/19 10:44 Last Admin: 07/09/19 08:12 Dose: 100 mls/hr Levetiracetam (Keppra Injection -) 500 mg IVPB BID [facility] Last Admin: 07/08/19 22:06 Dose: 500 mg Midazolam HCl (Versed -) 2 mg IVPUSH Q4H PRN PRN Reason: AGITATION Last Admin: 07/09/19 07:43 Dose: 2 mg Mupirocin (Bactroban Ointment (For Decolonization) -) 1 applic NS BID [facility] Stop: 07/12/19 09:59 Last Admin: 07/08/19 22:07 Dose: 1 applic a/p seizure-breakthrough r/o cva respiratory failure-remains intubated cannot r/o left base infiltrate history of PD continue rocephin/flagyl day #3 f/u with neurology Problem List - Problems (1) Seizure disorder Code(s): G40.909 - EPILEPSY, UNSP, NOT INTRACTABLE, WITHOUT STATUS EPILEPTICUS (2) CVA (cerebral vascular accident) Code(s): I63.9 - CEREBRAL INFARCTION, UNSPECIFIED (3) Leukocytosis Code(s): D72.829 - ELEVATED WHITE BLOOD CELL COUNT, UNSPECIFIED (4) Aspiration pneumonia Code(s): J69.0 - PNEUMONITIS DUE TO INHALATION OF FOOD AND VOMIT (5) Respiratory failure Code(s): J96.90 - RESPIRATORY FAILURE, UNSP, UNSP W HYPOXIA OR HYPERCAPNIA
[2019-07-09] MEDS ORDERED: SODIUM CHLORIDE 500 ML IV STA ×2 (10:45→16:36)
--- NOTE | 2019-07-09 11:12 | PN ---
Teaching Attending Note Name of Resident: Natalia Flowers ATTENDING PHYSICIAN STATEMENT I saw and evaluated the patient. I reviewed the resident's note and discussed the case with the resident. I agree with the resident's findings and plan as documented. SUBJECTIVE: Pt seen and examined in the ICU. More awake today, good cough with suctioning, tolerated CPAP/PS and subsequently extubated during rounds. OBJECTIVE: Vital Signs Period Temp Pulse Resp BP Sys/Rowland Pulse Ox Last 24 Hr 98.8 F-99.2 F 47-71 14-16 122-183/43-75 98-100 Intake & Output 07/06/19 07/07/19 07/08/19 07/09/19 23:59 23:59 23:59 23:59 Intake Total 2477 2445.3 700 Output Total 45 1200 375 100 Balance -45 1277 2070.3 600 Weight 49.895 kg 40.88 kg 42.638 kg 44.7 kg Gen: extubated Heart: RRR Lung: decreased breath sounds at the bases Abd: soft, nontender Ext: no edema CBC, BMP 07/09/19 08:04 07/09/19 08:04 Active Medications Chlorhexidine Gluconate (Hibiclens For Decolonization -) 1 applic TP HS [facility] Last Admin: 07/08/19 22:07 Dose: 1 applic Heparin Sodium (Porcine) (Heparin -) 5,000 unit SQ TID [facility] Last Admin: 07/09/19 06:07 Dose: 5,000 unit Sodium Chloride (Normal Saline -) 1,000 mls @ 75 mls/hr IV ASDIR [facility] Last Admin: 07/08/19 23:45 Dose: 75 mls/hr Ceftriaxone Sodium 1 gm/ (Dextrose) 50 mls @ 100 mls/hr IVPB DAILY [facility]; Protocol Last Admin: 07/09/19 09:18 Dose: 100 mls/hr Metronidazole (Flagyl 500mg Premixed Ivpb -) 500 mg in 100 mls @ 100 mls/hr IVPB Q8H-IV [facility] Last Admin: 07/09/19 09:18 Dose: 100 mls/hr Sodium Chloride (Normal Saline -) 500 mls @ 500 mls/hr IV ASDIR STA Stop: 07/09/19 11:44 Last Admin: 07/09/19 11:02 Dose: 500 mls/hr Levetiracetam (Keppra Injection -) [address] [facility] Last Admin: 07/09/19 09:19 Dose: 500 mg Midazolam HCl (Versed -) 2 mg IVPUSH Q4H PRN PRN Reason: AGITATION Last Admin: 07/09/19 07:43 Dose: 2 mg Mupirocin (Bactroban Ointment (For Decolonization) -) [address] [facility] Stop: 07/12/19 09:59 Last Admin: 07/09/19 09:19 Dose: 1 applic ASSESSMENT AND PLAN: Acute Respiratory Failure Breakthrough Seizure r/o Pneumonia Seizure Disorder +Troponins likely Demand Ischemia h/o CVA Parkinsons Dementia HTN - continue antiepileptics - antibiotics per ID - f/u cultures - replete lytes - pt extubated - taper FiO2 to keep SpO2 >90% - aspiration precautions - DVT prophylaxis - continue ICU monitoring critical care time spent in reviewing chart, evaluating patient and formulating plan 35 min
--- NOTE | 2019-07-09 12:27 | CONSULT ---
Admitting History and Physical - Primary Care Physician PCP: Jose David Jones - Admission History of Present Illness: 89 yo female with dementia, parkinson's disease, prior cva and seizure disorder developed left facial droop followed by grand mal seizure yesterday, brought to ED Was poorly responsive and intubated. Extubated this am. Last seen by me 03/02/19. Pt on dys minced diet and thin liquids. Pt accepted more by mouth when her feeds her. Rec-Feed only when alert.Small Bites, HOB elevated, Chin Tuck/Down, Clear Pocket Food, Trial Feedings, Safe Rate, 1/2 tsp. at a time, alternate food with sip of liquid. She was d/c'd to [place]. History Source: Medical Record - Past Medical History [employer]: Yes: Alzheimer's, CVA, Dementia, Seizure Cardiovascular: Yes: HTN Pulmonary: Yes: Pneumonia Psych: Yes: Depression - Past Surgical History Past Surgical History: Yes: None - Smoking History Smoking history: Unknown if ever smoked Have you smoked in the past 12 months: No Aproximately how many cigarettes per day: 0 - Alcohol/Substance Use Hx Alcohol Use: No History - Admission Reason For Visit: ENDOTRACHEAL TUBE PRESENT,SEIZURE - Diagnostics Modified Barium Swallow: Report Reviewed (07/09/18 Risk of aspiration but none demonatrated. Distractible, requiring consistent reminders to swallow with each bite/sip. 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 "She can't talk or understand since her stroke.") - Swallow Evaluation/Bedside Assessment A-P Transit: WFL Recommendations - Speech Evaluation, Impression/Plan Impression: Too lethargic for PO trials. To assess as pt improves.
--- NOTE | 2019-07-09 15:16 | PN ---
Physical Exam: SUBJECTIVE: Patient seen and examined at bedside. pt is awake. pt is non verbal and lethargic OBJECTIVE: Vital Signs Period Temp Pulse Resp BP Sys/Rowland Pulse Ox Last 24 Hr 98.0 F-99.2 F 47-71 14-23 122-183/43-75 98-100 GENERAL: The patient is awake, alert LUNGS: Breath sounds decreased b/l HEART: regular rate and rhythm, S1, S2 ABDOMEN: Soft, nondistended, hypoactive bowel sounds EXTREMITIES: 2+ pulses, warm, well-perfused, no edema. SKIN: Warm, dry, normal turgor, no rashes or lesions noted Laboratory Results - last 24 hr 07/09/19 07/09/19 08:04 08:04 WBC 9.3 RBC 2.75 L Hgb 8.3 L Hct 24.8 L MCV 90.1 MCH 30.2 MCHC 33.5 RDW 15.7 H Plt Count 256 MPV 8.6 Absolute Neuts (auto) 7.6 Neutrophils % 82.3 Lymphocytes % 8.7 D Monocytes % 6.9 Eosinophils % 1.4 Basophils % 0.7 Nucleated RBC % 0 Sodium 144 Potassium 3.1 L Chloride 113 H Carbon Dioxide 22 Anion Gap 9 BUN 14.3 Creatinine 0.9 Est GFR (CKD-EPI)AfAm 66.63 Est GFR (CKD-EPI)NonAf 57.49 Random Glucose 84 Calcium 7.8 L Phosphorus 2.6 Magnesium 2.0 Current Medications Chlorhexidine Gluconate (Hibiclens For Decolonization -) 1 applic TP HS [facility] Last Admin: 07/08/19 22:07 Dose: 1 applic Heparin Sodium (Porcine) (Heparin -) 5,000 unit SQ TID [facility] Last Admin: 07/09/19 13:41 Dose: 5,000 unit Sodium Chloride (Normal Saline -) 1,000 mls @ 75 mls/hr IV ASDIR [facility] Last Admin: 07/08/19 23:45 Dose: 75 mls/hr Ceftriaxone Sodium 1 gm/ (Dextrose) 50 mls @ 100 mls/hr IVPB DAILY [facility]; Protocol Last Admin: 07/09/19 09:18 Dose: 100 mls/hr Metronidazole (Flagyl 500mg Premixed Ivpb -) 500 mg in 100 mls @ 100 mls/hr IVPB Q8H-IV [facility] Last Admin: 07/09/19 09:18 Dose: 100 mls/hr Levetiracetam (Keppra Injection -) 500 mg IVPB BID [facility] Last Admin: 07/09/19 09:19 Dose: 500 mg Midazolam HCl (Versed -) 2 mg IVPUSH Q4H PRN PRN Reason: AGITATION Last Admin: 07/09/19 07:43 Dose: 2 mg Mupirocin (Bactroban Ointment (For Decolonization) -) 1 applic NS BID [facility] Stop: 07/12/19 09:59 Last Admin: 07/09/19 09:19 Dose: [address]: IMPRESSION: No significant interval change. Extensive periventricular chronic microvascular ischemic disease changes again seen. No CT evidence of acute intracranial pathology is identified. Correlate clinically to determine further evaluation and follow-up. ASSESSMENT/PLAN: 89 yo F PMH dementia, Parkinson's, depression, HTN, L cerebral CVA, seizure disorder admitted for r/o CVA, Acute respiratory failure, and status epilepticus. EMS gave 5 mg Versed in the field. Pt was BIBEMS in respiratory distress and intubated in the ED. Pt will be monitored by ICU. R/O CVA Status Epilepticus , hx of seizure disorder Acute respiratory failure HTN Neuro: -r/o CVA -Status Epilepticus -Head CT : reviewed no acute interval change. -stroke protocol initiated in ED. low suspicion of stroke as primary diagnosis -Neuro recs (Dr. Hughes) recs appreciated -c/w keppra 500 bid -HOB elevated, -EEG abnormal. the findings are nonspecific and may be seen with diffuse encephalopathy of metabolic, degenerative, or vascular origin. there were large amount of muscle infarcts were identified. Cardiovascular: HTN -continue cardiac monitoring -Echo 02/26: normal EF , Grade I diastolic dysfunction -hold antihypertensives in setting of acute CVA -Cholesterol 242, LDL 46, HDL 81. -troponin negative -EKG: diffuse ST depressions. likely 2/2 seizure Pulmonary Acute Respiratory Failure -CXRAY reviewed -will rpt CXR in am -pt s/p extubation this am , saturating well on venti mask ID -empiric Vanc, Zosyn in ED -flagyl, ceftriaxone day 3 F/E/N -c/w NS @ 75mls / hr -rpt BMP , continue to monitor electrolytes -hypokalemia- repleted -NPO Dispo: We will continue to follow the patient. Thank you for this consultative opportunity. Visit type - Emergency Visit Emergency Visit: No - New Patient This patient is new to me today: No - Critical Care Critical Care patient: Yes Total Critical Care Time (in minutes): 36 Critical Care Statement: The care of this patient involved high complexity decision making to prevent further life threatening deterioration of the patient 's condition and/or to evaluate & treat vital organ system(s) failure or risk of failure. - Discharge Referral Referred to [facility] No ATTENDING PHYSICIAN STATEMENT I saw and evaluated the patient. I reviewed the resident's note and discussed the case with the resident. I agree with the resident's findings and plan as documented. SUBJECTIVE: OBJECTIVE: ASSESSMENT AND PLAN:
[2019-07-09] MEDS: SODIUM CHLORIDE 1,000 ML IV SCH ×2 (17:05→23:50)
[2019-07-09] MEDS: CHLORHEXIDINE GLUCONATE 4% CLEANSER FOR DECOLONIZATION TP SCH (21:08)
[2019-07-10] MEDS: HEPARIN NA (PORCINE) 5,000 UNITS/ML 1ML VIAL SQ SCH ×3 (05:26→21:58)
[2019-07-10 06:33] LABS: EOS % 2.7 % (0-4.5); HEMATOCRIT 29.3 % (32.4-45.2); HEMOGLOBIN 9.6 GM/dL (10.7-15.3); LYMPH % 10.7 % (8-40); MCH 30.2 pg (25.7-33.7); MCHC 32.6 g/dl (32.0-36.0); MEAN CELL VOLUME 92.5 fl (80-96); MEAN PLT VOLUME 9.4 fl (7.5-11.1); MONO % 5.5 % (3.8-10.2); NEUT % 80.1 % (42.8-82.8); PLATELET COUNT 312 K/MM3 (134-434); RBC 3.17 M/mm3 (3.60-5.2); RDW 16.4 % (11.6-15.6); WHITE BLOOD COUNT 9.1 K/mm3 (4.0-10.0)
[2019-07-10 07:08] LABS: ALBUMIN 2.1 g/dl (3.4-5.0); BILIRUBIN,TOTAL 0.4 mg/dL (0.2-1); BLOOD UREA NITROGEN 12.7 mg/dL (7-18); CALCIUM 7.5 mg/dL (8.5-10.1); CREATININE 0.7 mg/dL (0.55-1.3); MAGNESIUM 1.6 mg/dL (1.8-2.4); POTASSIUM 3.6 mmol/L (3.5-5.1); TOT PROT 4.5 g/dl (6.4-8.2)
--- NOTE | 2019-07-10 08:45 | PN ---
Physical Exam: SUBJECTIVE: Patient seen and examined at bedside. No acute events o/n. Pt nonverbal but alert, awake, and responsive. To be transferred off unit. OBJECTIVE: Vital Signs Period Temp Pulse Resp BP Sys/Rowland Pulse Ox Last 24 Hr 98.0 F-98.8 F 54-67 6-23 134-182/46-89 100-100 GEN: NAD, awake, alert, nonverbal HEENT: NC/AT, EOMI. Eyes and face tracking. No facial asymmetry. CV: S1/S2, RRR, no m/r/g LUNG: Normal respiratory effort on NC. End expiratory wheezes otherwise clear b/ l. GI: soft, ndnt, +BS, no guarding, no rebound. EXTREMITIES: nonpitting edema of the b/l UE. No edema of the b/l LE. wound dressing applied to the heels b/l and right UE elbow. SKIN: warm, dry, normal turgor Laboratory Results - last 24 hr 07/09/19 07/10/19 07/10/19 08:04 05:45 05:45 WBC 9.1 RBC 3.17 L Hgb 9.6 L Hct 29.3 L D MCV 92.5 MCH 30.2 MCHC 32.6 RDW 16.4 H Plt Count 312 D MPV 9.4 Absolute Neuts (auto) 7.3 Neutrophils % 80.1 Lymphocytes % 10.7 D Monocytes % 5.5 Eosinophils % 2.7 D Basophils % 1.0 Nucleated RBC % 0 Sodium 144 144 Potassium 3.1 L 3.6 Chloride 113 H 116 H Carbon Dioxide 22 16 L Anion Gap 9 12 BUN 14.3 12.7 Creatinine 0.9 0.7 Est GFR (CKD-EPI)AfAm 66.63 90.29 Est GFR (CKD-EPI)NonAf 57.49 77.90 Random Glucose 84 66 L Calcium 7.8 L 7.5 L Phosphorus 2.6 2.0 L Magnesium 2.0 1.6 L Total Bilirubin 0.4 AST 49 H ALT 8 L Alkaline Phosphatase 47 Total Protein 4.5 L Albumin 2.1 L Active Medications Generic Name Dose Route Start Last Admin Trade Name Freq PRN Reason Stop Dose Admin Chlorhexidine Gluconate 1 applic 07/07/19 22:00 07/09/19 21:08 Hibiclens For Decolonization - TP 1 applic HS [facility] Administration Heparin Sodium (Porcine) 5,000 unit 07/07/19 14:00 07/10/19 05:26 Heparin - SQ 5,000 unit TID [facility] Administration Sodium Chloride 1,000 mls @ 75 mls/hr 07/06/19 23:45 07/09/19 23:50 Normal Saline - IV 75 mls/hr ASDIR [facility] Administration Ceftriaxone Sodium 1 gm/ 50 mls @ 100 mls/hr 07/07/19 10:00 07/09/19 09:18 Dextrose IVPB 100 mls/hr DAILY [facility] Administration Protocol Metronidazole 500 mg in 100 mls @ 100 mls/hr 07/07/19 10:00 07/10/19 03:00 Flagyl 500mg Premixed Ivpb - IVPB 100 mls/hr Q8H-IV [facility] Administration Levetiracetam 500 mg 07/08/19 07:34 07/09/19 21:05 Keppra Injection - IVPB 500 mg BID [facility] Administration Mupirocin 1 applic 07/07/19 10:00 07/09/19 21:09 Bactroban Ointment (For Decolonization) - NS 07/12/19 09:59 1 applic BID [facility] Administration ASSESSMENT/PLAN: 89F pmh dementia, PD, MDD, HTN, L cerebral CVA, seizures admitted for r/o CVA, acute respiratory failure, and status epilepticus. Pt BIBEMS, given versed on field, and intubated in ED. Patient has improved during her stay in ICU, no longer intubated. Set for transfer off unit. NEURO - r/o CVA, status epilepticus - 07/08/[address] demonstrates no interval changes - EEG abnormal. the findings are nonspecific and may be seen with diffuse encephalopathy of metabolic, degenerative, or vascular origin. there were large amount of muscle infarcts were identified. - HOB elevation - Keppra 500 BID CV - HTN - cardiac monitoring - 02/2019 ECHO: normal EF, Grade I diastolic dysfx - Chol 242, LDL 46, HDL 81 - trop neg - HOLD HTN meds 2/2 CVA RESP - s/p intubation - breathing and saturating well on NC - Duonebs prn for wheezing - repeat ABG pH 7.34 ID - ID recs appreciated - WBC count improved - c/w Flagyl empirically - c/w Ceftriaxone empirically FENGI - NS 75cc/h - Phos 2.0 < 2.6 > 1.7 - Mg 1.6 < 2 < 1.5 - Replete Mg, Phos - continue to monitor lytes - Speech/Swallow rec appreciated - NPO DISPO - transfer to m/s CODE STATUS - DNR Visit type - Emergency Visit Emergency Visit: No - New Patient This patient is new to me today: No - Critical Care Critical Care patient: Yes Total Critical Care Time (in minutes): 30 Critical Care Statement: The care of this patient involved high complexity decision making to prevent further life threatening deterioration of the patient 's condition and/or to evaluate & treat vital organ system(s) failure or risk of failure.
[2019-07-10] MEDS: SODIUM CHLORIDE 1,000 ML IV SCH (09:08)
[2019-07-10] MEDS ORDERED: cefTRIAXone SODIUM 1 GM VIAL ONE (09:10)
[2019-07-10] MEDS ORDERED: DEXTROSE 5%-WATER - 50 ML IVPB ONE (09:10)
[2019-07-10] MEDS: CEFTRIAXONE 1 GM in DEXTROSE 5%-WATER - 50 ML IVPB SCH (09:12)
[2019-07-10] MEDS: MUPIROCIN 2% TOPICAL OINTMENT FOR DECOLONIZATION NS SCH ×2 (10:55→22:00)
[2019-07-10] MEDS: levETIRAcetam 500 MG/5 ML INJECTION VIAL IVPB SCH ×2 (10:55→21:58)
--- NOTE | 2019-07-10 10:56 | PN ---
Teaching Attending Note Name of Resident: [employer] ATTENDING PHYSICIAN STATEMENT I saw and evaluated the patient. I reviewed the resident's note and discussed the case with the resident. I agree with the resident's findings and plan as documented. SUBJECTIVE: Pt seen and examined in the ICU. Remains extubated. Pt nonverbal. No fevers or seizures noted. OBJECTIVE: Vital Signs Period Temp Pulse Resp BP Sys/Rowland Pulse Ox Last 24 Hr 98.0 F-98.8 F 54-67 6-23 121-182/45-89 97-100 Intake & Output 07/07/19 07/08/19 07/09/19 07/10/19 23:59 23:59 23:59 23:59 Intake Total 2477 2445.3 700 852 Output Total 1200 375 230 200 Balance 1277 2070.3 470 652 Weight 40.88 kg 42.638 kg 44.7 kg 47.4 kg Gen: mildly tachypneic at rest Heart: RRR Lung: decreased breath sounds at the bases Abd: soft, nontender Ext: no edema CBC, BMP 07/10/19 05:45 07/10/19 05:45 Active Medications Chlorhexidine Gluconate (Hibiclens For Decolonization -) 1 applic TP HS [facility] Last Admin: 07/09/19 21:08 Dose: 1 applic Heparin Sodium (Porcine) (Heparin -) 5,000 unit SQ TID [facility] Last Admin: 07/10/19 05:26 Dose: 5,000 unit Sodium Chloride (Normal Saline -) 1,000 mls @ 75 mls/hr IV ASDIR [facility] Last Admin: 07/10/19 09:08 Dose: 75 mls/hr Ceftriaxone Sodium 1 gm/ (Dextrose) 50 mls @ 100 mls/hr IVPB DAILY [facility]; Protocol Last Admin: 07/10/19 09:12 Dose: 100 mls/hr Metronidazole (Flagyl 500mg Premixed Ivpb -) 500 mg in 100 mls @ 100 mls/hr IVPB Q8H-IV [facility] Last Admin: 07/10/19 09:14 Dose: 100 mls/hr Levetiracetam (Keppra Injection -) 500 mg IVPB BID [facility] Last Admin: 07/10/19 10:55 Dose: 500 mg Magnesium Sulfate (Magnesium Sulfate) 1 gm IVPB ONCE ONE Stop: 07/10/19 11:31 Mupirocin (Bactroban Ointment (For Decolonization) -) 1 applic NS BID [facility] Stop: 07/12/19 09:59 Last Admin: 07/10/19 10:55 Dose: 1 applic Potassium Phos/Sodium Phos (Phos-Nak Packet -) 2 packet PO ONCE ONE Stop: 07/10/19 11:16 ASSESSMENT AND PLAN: s/p Acute Respiratory Failure Breakthrough Seizure r/o Pneumonia Seizure Disorder +Troponins likely Demand Ischemia h/o CVA Parkinsons Dementia HTN - continue antiepileptics - antibiotics per ID - replete lytes - taper FiO2 to keep SpO2 >90% - aspiration precautions - check ABG for decreasing bicarb - DVT prophylaxis - can monitor on floor pending ABG critical care time spent in reviewing chart, evaluating patient and formulating plan 35 min
[2019-07-10] MEDS ORDERED: SODIUM PHOSPHATE - 0 MM in SODIUM CHLORIDE 250 ML IVPB ONE (10:57)
[2019-07-10] MEDS ORDERED: NAPH,MB-DB/K PH,MBDB POWDER PACKET PO ONE (11:15)
[2019-07-10 11:23] LABS: ARTERIAL BLD GAS O2 SATURATION 98.8 % (95-98); ARTERIAL BLOOD GAS BASE EXCESS -10.3 meq/l (-2-2); ARTERIAL BLOOD GAS PCO2 26.3 mmHg (35-45); ARTERIAL BLOOD GAS PO2 123 mmHg (80-100); ARTERIAL BLOOD GAS pH 7.34 (7.35-7.45)
[2019-07-10 11:24] LABS: ALLENS TEST POSITIVE
[2019-07-10] MEDS ORDERED: MAGNESIUM SULF 50% (8.12 MEQ/2 ML-1 GM VIAL) IVPB ONE (11:30)
[2019-07-10] MEDS ORDERED: SODIUM PHOSPHATE - 15 MM in SODIUM CHLORIDE 250 ML IVPB ONE (12:15)
--- NOTE | 2019-07-10 12:29 | PN ---
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, Physician History of Present Illness: REMAINS EXTUBATED BREATHING NON LABORED ON NASAL CANNULA NOT CONVERSANT TEMPS, WBC DOWN AFEBRILE BC (-) SPUTUM NORMAL JULIO - Current Medication List Current Medications: Active Medications Chlorhexidine Gluconate (Hibiclens For Decolonization -) 1 applic TP HS [facility] Last Admin: 07/09/19 21:08 Dose: 1 applic Heparin Sodium (Porcine) (Heparin -) 5,000 unit SQ TID [facility] Last Admin: 07/10/19 05:26 Dose: 5,000 unit Sodium Chloride (Normal Saline -) 1,000 mls @ 75 mls/hr IV ASDIR [facility] Last Admin: 07/10/19 09:08 Dose: 75 mls/hr Ceftriaxone Sodium 1 gm/ (Dextrose) 50 mls @ 100 mls/hr IVPB DAILY [facility]; Protocol Last Admin: 07/10/19 09:12 Dose: 100 mls/hr Metronidazole (Flagyl 500mg Premixed Ivpb -) 500 mg in 100 mls @ 100 mls/hr IVPB Q8H-IV [facility] Last Admin: 07/10/19 09:14 Dose: 100 mls/hr Sodium Phosphate 15 mm/ Sodium (Chloride) 255 mls @ 62.5 mls/hr IVPB ONCE ONE Stop: 07/10/19 16:19 Levetiracetam (Keppra Injection -) 500 mg IVPB BID [facility] Last Admin: 07/10/19 10:55 Dose: 500 mg Mupirocin (Bactroban Ointment (For Decolonization) -) 1 applic NS BID [facility] Stop: 07/12/19 09:59 Last Admin: 07/10/19 10:55 Dose: 1 applic - Objective Vital Signs: Vital Signs Temperature 98.8 F 07/10/19 04:00 Pulse Rate 66 07/10/19 12:00 Respiratory Rate 22 H 07/10/19 12:00 Blood Pressure 135/48 L 07/10/19 12:00 O2 Sat by Pulse Oximetry (%) 97 07/10/19 08:48 Constitutional: Yes: No Distress Cardiovascular: Yes: Regular Rate and Rhythm, S1, S2 Respiratory: Yes: Diminished Gastrointestinal: Yes: Normal Bowel Sounds, Soft. No: Tenderness Edema: Yes Edema: LUE: 1+, RUE: 1+ Labs: CBC, BMP 07/10/19 05:45 07/10/19 05:45 INR, PTT INR 0.96 (0.83-1.09) 07/06/19 21:40 Assessment/Plan S/P RESP FAILURE EXTUBATED ? PNEUMONIA FEVER/ LEUKOCYTOSIS IMPROVED SEIZURE CONTINUE EMPIRIC CEFTRIAXONE/ FLAGYL
[2019-07-10] MEDS ORDERED: ALBUTEROL SO4 2.5/IPRATROPIUM 0.5 INH SOL 3 ML VIAL.NEB. NEB PRN (14:10)
--- NOTE | 2019-07-10 21:33 | PN ---
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, Physician History of Present Illness: Pt intubated - Current Medication List Current Medications: Active Medications Albuterol/Ipratropium (Duoneb -) 1 amp NEB Q15M PRN PRN Reason: WHEEZING Stop: 07/16/19 15:01 Chlorhexidine Gluconate (Hibiclens For Decolonization -) 1 applic TP HS [facility] Last Admin: 07/09/19 21:08 Dose: 1 applic Heparin Sodium (Porcine) (Heparin -) 5,000 unit SQ TID [facility] Last Admin: 07/10/19 14:40 Dose: 5,000 unit Sodium Chloride (Normal Saline -) 1,000 mls @ 75 mls/hr IV ASDIR [facility] Last Admin: 07/10/19 09:08 Dose: 75 mls/hr Ceftriaxone Sodium 1 gm/ (Dextrose) 50 mls @ 100 mls/hr IVPB DAILY [facility]; Protocol Last Admin: 07/10/19 09:12 Dose: 100 mls/hr Metronidazole (Flagyl 500mg Premixed Ivpb -) 500 mg in 100 mls @ 100 mls/hr IVPB Q8H-IV [facility] Last Admin: 07/10/19 18:05 Dose: 100 mls/hr Levetiracetam (Keppra Injection -) 500 mg IVPB BID [facility] Last Admin: 07/10/19 10:55 Dose: 500 mg Mupirocin (Bactroban Ointment (For Decolonization) -) 1 applic NS BID [facility] Stop: 07/12/19 09:59 Last Admin: 07/10/19 10:55 Dose: 1 applic - Objective Vital Signs: Vital Signs Temperature 97.5 F L 07/10/19 14:00 Pulse Rate 68 07/10/19 20:00 Respiratory Rate 21 H 07/10/19 20:00 Blood Pressure 162/55 L 07/10/19 20:00 O2 Sat by Pulse Oximetry (%) 99 07/10/19 20:26 Eyes: Yes: WNL Cardiovascular: Yes: WNL, Regular Rate and Rhythm Respiratory: Yes: Diminished Gastrointestinal: Yes: WNL, Normal Bowel Sounds, Soft Edema: No Labs: CBC, BMP 07/10/19 05:45 07/10/19 05:45 INR, PTT INR 0.96 (0.83-1.09) 07/06/19 21:40 Problem List - Problems (1) Seizure disorder Assessment/Plan: Cont keppra Code(s): G40.909 - EPILEPSY, UNSP, NOT INTRACTABLE, WITHOUT STATUS EPILEPTICUS (2) Acute respiratory distress Assessment/Plan: Pt remains intubated Cont IV flagyl/ceftriaxone Code(s): R06.03 - ACUTE RESPIRATORY DISTRESS (3) HTN (hypertension) Assessment/Plan: BP stable Code(s): I10 - ESSENTIAL (PRIMARY) HYPERTENSION (4) Parkinsons Code(s): G20 - PARKINSON'S DISEASE (5) Dementia Code(s): F03.90 - UNSPECIFIED DEMENTIA WITHOUT BEHAVIORAL DISTURBANCE
[2019-07-10] MEDS: CHLORHEXIDINE GLUCONATE 4% CLEANSER FOR DECOLONIZATION TP SCH (21:59)
[2019-07-11] MEDS: SODIUM CHLORIDE 1,000 ML IV SCH (05:46)
[2019-07-11] MEDS: HEPARIN NA (PORCINE) 5,000 UNITS/ML 1ML VIAL SQ SCH ×3 (05:46→21:37)
[2019-07-11 06:48] LABS: BASO % 0.9 % (0-2.0); EOS % 1.4 % (0-4.5); LYMPH % 11.4 % (8-40); MCH 30.5 pg (25.7-33.7); MCHC 33.4 g/dl (32.0-36.0); MEAN CELL VOLUME 91.2 fl (80-96); MEAN PLT VOLUME 8.8 fl (7.5-11.1); MONO % 9.5 % (3.8-10.2); NEUT % 76.8 % (42.8-82.8); PLATELET COUNT 312 K/MM3 (134-434); RBC 2.96 M/mm3 (3.60-5.2); RDW 16.2 % (11.6-15.6); WHITE BLOOD COUNT 8.3 K/mm3 (4.0-10.0)
[2019-07-11 07:03] LABS: ALBUMIN 2.2 g/dl (3.4-5.0); BILIRUBIN,TOTAL 0.3 mg/dL (0.2-1); BLOOD UREA NITROGEN 10.8 mg/dL (7-18); CALCIUM 8.1 mg/dL (8.5-10.1); CREATININE 0.9 mg/dL (0.55-1.3); POTASSIUM 3.6 mmol/L (3.5-5.1); TOT PROT 4.8 g/dl (6.4-8.2)
--- NOTE | 2019-07-11 07:12 | PN ---
Physical Exam: SUBJECTIVE: Patient seen and examined at bedside this AM. No acute events. OBJECTIVE: Vital Signs Period Temp Pulse Resp BP Sys/Rowland Pulse Ox Last 24 Hr 97.5 F-98.2 F 57-68 16-24 121-169/43-75 97-99 GENERAL: The patient is awake, in no acute distress. HEAD: Normal with no signs of trauma. NECK: supple. LUNGS: Breath sounds equal, slightly roncherous and decreased at bases. HEART: Regular rate and rhythm, S1, S2 without murmur, rub or gallop. ABDOMEN: Soft, nontender, nondistended, no guarding, no rebound. EXTREMITIES: 2+ pulses, warm, well-perfused, no edema. NEUROLOGICAL: difficult to assess, pt responsive to commands, eye tracking present, able to phonate. SKIN: Warm, dry, no rashes or lesions noted Laboratory Results - last 24 hr 07/10/19 07/11/19 07/11/19 11:11 06:05 06:05 WBC 8.3 RBC 2.96 L Hgb 9.0 L Hct 27.0 L MCV 91.2 MCH 30.5 MCHC 33.4 RDW 16.2 H Plt Count 312 MPV 8.8 Absolute Neuts (auto) 6.4 Neutrophils % 76.8 Lymphocytes % 11.4 Monocytes % 9.5 Eosinophils % 1.4 Basophils % 0.9 Nucleated RBC % 0 Puncture Site Right radial ABG pH 7.34 L ABG pCO2 at Pt Temp 26.3 L ABG pO2 at Pt Temp 123 H ABG HCO3 13.8 L ABG O2 Sat (Measured) 98.8 H ABG O2 Content 14.8 ABG Base Excess -10.3 L Carlos Test Positive Oxygen Flow Rate 2l Sodium 146 H Potassium 3.6 Chloride 118 H Carbon Dioxide 17 L Anion Gap 12 BUN 10.8 Creatinine 0.9 Est GFR (CKD-EPI)AfAm 66.63 Est GFR (CKD-EPI)NonAf 57.49 Random Glucose 85 Calcium 8.1 L Total Bilirubin 0.3 AST 50 H ALT 10 L Alkaline Phosphatase 45 Total Protein 4.8 L Albumin 2.2 L Active Medications Generic Name Dose Route Start Last Admin Trade Name Freq PRN Reason Stop Dose Admin Albuterol/Ipratropium 1 amp 07/10/19 14:10 Duoneb - NEB 07/16/19 15:01 Q15M PRN WHEEZING Chlorhexidine Gluconate 1 applic 07/07/19 22:00 07/10/19 21:59 Hibiclens For Decolonization - TP 1 applic HS [facility]DE Administration Heparin Sodium (Porcine) 5,000 unit 07/07/19 14:00 07/11/19 05:46 Heparin - SQ 5,000 unit TID [facility]ILDE Administration Sodium Chloride 1,000 mls @ 75 mls/hr 07/06/19 23:45 07/11/19 05:46 Normal Saline - IV 75 mls/hr ASDIR [facility] Administration Ceftriaxone Sodium 1 gm/ 50 mls @ 100 mls/hr 07/07/19 10:00 07/10/19 09:12 Dextrose IVPB 100 mls/hr DAILY [facility] Administration Protocol Metronidazole 500 mg in 100 mls @ 100 mls/hr 07/07/19 10:00 07/11/19 02:15 Flagyl 500mg Premixed Ivpb - IVPB 100 mls/hr Q8H-IV MAT[facility]DE Administration Levetiracetam 500 mg 07/08/19 07:34 07/10/19 21:58 Keppra Injection - IVPB 500 mg BID [facility]DE Administration Mupirocin 1 applic 07/07/19 10:00 07/10/19 22:00 Bactroban Ointment (For Decolonization) - NS 07/12/19 09:59 1 applic BID [facility] Administration ASSESSMENT/PLAN: This is an 89 y/o F with a PMH of dementia, PD, MDD, HTN, L cerebral CVA, seizures admitted for r/o CVA, acute respiratory failure, and status epilepticus. Pt BIBEMS, given versed on field, and intubated in ED. Patient has improved during her stay in ICU, no longer intubated. Set for transfer off unit. NEUROlogy -> r/o CVA, status epilepticus - 07/08/[address] demonstrates no interval changes - EEG abnormal. the findings are nonspecific and may be seen with diffuse encephalopathy of metabolic, degenerative, or vascular origin. there were large amount of muscle infarcts were identified. - HOB elevation - Keppra 500 BID Cardiology -> HTN - cardiac monitoring - 02/2019 ECHO: normal EF, Grade I diastolic dysfx - Chol 242, LDL 46, HDL 81 - trop neg - awaiting recs from primary team regarding restarting antihypertensive meds. RESP -> s/p intubation - breathing and saturating well on NC - Duonebs prn for wheezing - repeat ABG pH 7.34 ID-> - ID recs appreciated - WBC count improved - c/w Flagyl empirically - c/w Ceftriaxone empirically Gastroenterology - speech and swallow recs appreciated - NPO FEN - NS 75cc/h - Phos 2.0 < 2.6 > 1.7 - Mg 1.6 < 2 < 1.5 - Replete Mg, Phos - continue to monitor lytes DISPO - transfer to m/s CODE STATUS -DNR Visit type - Emergency Visit Emergency Visit: Yes ED Registration Date: 07/06/19 Care time: The patient presented to the Emergency Department on the above date and was hospitalized for further evaluation of their emergent condition. - New Patient This patient is new to me today: No - Critical Care Critical Care patient: Yes Total Critical Care Time (in minutes): 40 Critical Care Statement: The care of this patient involved high complexity decision making to prevent further life threatening deterioration of the patient 's condition and/or to evaluate & treat vital organ system(s) failure or risk of failure. - Discharge Referral Referred to [facility] No
[2019-07-11 08:24] LABS: ARTERIAL BLD GAS O2 SATURATION 97.2 % (95-98); ARTERIAL BLOOD GAS BASE EXCESS -10.6 meq/l (-2-2); ARTERIAL BLOOD GAS PCO2 27.5 mmHg (35-45); ARTERIAL BLOOD GAS PO2 89.9 mmHg (80-100); ARTERIAL BLOOD GAS pH 7.33 (7.35-7.45)
[2019-07-11 08:32] LABS: ALLENS TEST POSITIVE
[2019-07-11] MEDS ORDERED: cefTRIAXone SODIUM 1 GM VIAL ONE (09:28)
[2019-07-11] MEDS ORDERED: DEXTROSE 5%-WATER - 50 ML IVPB ONE (09:28)
[2019-07-11] MEDS: CEFTRIAXONE 1 GM in DEXTROSE 5%-WATER - 50 ML IVPB SCH (09:32)
[2019-07-11] MEDS: levETIRAcetam 500 MG/5 ML INJECTION VIAL IVPB SCH ×2 (09:36→21:37)
[2019-07-11] MEDS: MUPIROCIN 2% TOPICAL OINTMENT FOR DECOLONIZATION NS SCH (09:36)
--- NOTE | 2019-07-11 10:33 | PN ---
Teaching Attending Note Name of Resident: Ruiz Martinez ATTENDING PHYSICIAN STATEMENT I saw and evaluated the patient. I reviewed the resident's note and discussed the case with the resident. I agree with the resident's findings and plan as documented. SUBJECTIVE: Pt seen and examined in the ICU. No overnight events. OBJECTIVE: Vital Signs Period Temp Pulse Resp BP Sys/Rowland Pulse Ox Last 24 Hr 97.5 F-98.2 F 57-68 19-24 135-169/43-75 99-100 Intake & Output 07/08/19 07/09/19 07/10/19 07/11/19 23:59 23:59 23:59 23:59 Intake Total 2445.3 700 2102 1000 Output Total 375 230 440 150 Balance 2070.3 470 1662 850 Weight 42.638 kg 44.7 kg 47.4 kg 47 kg Gen: NAD at rest Heart: RRR Lung: decreased breath sounds at the bases Abd: soft, nontender Ext: no edema CBC, BMP 07/11/19 06:05 07/11/19 06:05 Active Medications Albuterol/Ipratropium (Duoneb -) 1 amp NEB Q15M PRN PRN Reason: WHEEZING Stop: 07/16/19 15:01 Last Admin: 07/11/19 08:25 Dose: 1 amp Chlorhexidine Gluconate (Hibiclens For Decolonization -) 1 applic TP HS [facility] Last Admin: 07/10/19 21:59 Dose: 1 applic Heparin Sodium (Porcine) (Heparin -) 5,000 unit SQ TID [facility] Last Admin: 07/11/19 05:46 Dose: 5,000 unit Sodium Chloride (Normal Saline -) 1,000 mls @ 75 mls/hr IV ASDIR [facility] Last Admin: 07/11/19 05:46 Dose: 75 mls/hr Ceftriaxone Sodium 1 gm/ (Dextrose) 50 mls @ 100 mls/hr IVPB DAILY [facility]; Protocol Last Admin: 07/11/19 09:32 Dose: 100 mls/hr Metronidazole (Flagyl 500mg Premixed Ivpb -) 500 mg in 100 mls @ 100 mls/hr IVPB Q8H-IV [facility] Last Admin: 07/11/19 09:32 Dose: 100 mls/hr Levetiracetam (Keppra Injection -) 500 mg IVPB BID [facility] Last Admin: 07/11/19 09:36 Dose: 500 mg Mupirocin (Bactroban Ointment (For Decolonization) -) 1 applic NS BID [facility] Stop: 07/12/19 09:59 Last Admin: 07/11/19 09:36 Dose: 1 applic ASSESSMENT AND PLAN: s/p Acute Respiratory Failure Breakthrough Seizure r/o Pneumonia Seizure Disorder +Troponins likely Demand Ischemia h/o CVA Parkinsons Dementia HTN - continue antiepileptics - antibiotics per ID - taper FiO2 to keep SpO2 >90% - aspiration precautions - DVT prophylaxis - can monitor on floor
[2019-07-11] MEDS ORDERED: ALBUTEROL SO4 2.5/IPRATROPIUM 0.5 INH SOL 3 ML VIAL.NEB. NEB PRN (20:25)
[2019-07-11] MEDS ORDERED: SODIUM CHLORIDE 1,000 ML IV SCH (20:25)
[2019-07-11] MEDS: CHLORHEXIDINE GLUCONATE 4% CLEANSER FOR DECOLONIZATION TP SCH (21:37)
--- NOTE | 2019-07-11 23:45 | PN ---
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, Physician History of Present Illness: No new complaints - Current Medication List Current Medications: Active Medications Albuterol/Ipratropium (Duoneb -) 1 amp NEB Q15M PRN PRN Reason: WHEEZING Stop: 07/16/19 15:01 Chlorhexidine Gluconate (Hibiclens For Decolonization -) 1 applic TP HS [facility] Last Admin: 07/11/19 21:37 Dose: 1 applic Heparin Sodium (Porcine) (Heparin -) 5,000 unit SQ TID [facility] Last Admin: 07/11/19 21:37 Dose: 5,000 unit Ceftriaxone Sodium 1 gm/ (Dextrose) 50 mls @ 100 mls/hr IVPB DAILY [facility]; Protocol Metronidazole (Flagyl 500mg Premixed Ivpb -) 500 mg in 100 mls @ 100 mls/hr IVPB Q8H-IV [facility] Sodium Chloride (Normal Saline -) 1,000 mls @ 75 mls/hr IV ASDIR [facility] Last Admin: 07/11/19 21:36 Dose: Not Given Levetiracetam (Keppra Injection -) 500 mg IVPB BID [facility] Last Admin: 07/11/19 21:37 Dose: 500 mg - Objective Vital Signs: Vital Signs Temperature 98.5 F 07/11/19 22:00 Pulse Rate 68 07/11/19 22:00 Respiratory Rate 20 07/11/19 22:00 Blood Pressure 168/70 07/11/19 22:00 O2 Sat by Pulse Oximetry (%) 98 07/11/19 19:49 Neck: Yes: WNL, Supple Cardiovascular: Yes: WNL, Regular Rate and Rhythm Respiratory: Yes: Diminished Edema: LUE: Trace, RUE: Trace Labs: CBC, BMP 07/11/19 06:05 07/11/19 06:05 INR, PTT INR 0.96 (0.83-1.09) 07/06/19 21:40 Problem List - Problems (1) Seizure disorder Assessment/Plan: Cont keppra Code(s): G40.909 - EPILEPSY, UNSP, NOT INTRACTABLE, WITHOUT STATUS EPILEPTICUS (2) Acute respiratory distress Assessment/Plan: Cont IV flagyl/ceftriaxone Code(s): R06.03 - ACUTE RESPIRATORY DISTRESS (3) HTN (hypertension) Assessment/Plan: BP stable Code(s): I10 - ESSENTIAL (PRIMARY) HYPERTENSION (4) Parkinsons Code(s): G20 - PARKINSON'S DISEASE (5) Dementia Code(s): F03.90 - UNSPECIFIED DEMENTIA WITHOUT BEHAVIORAL DISTURBANCE
[2019-07-12] MEDS: HEPARIN NA (PORCINE) 5,000 UNITS/ML 1ML VIAL SQ SCH ×3 (05:21→21:52)
[2019-07-12 06:00] LABS: BASO % 1.1 % (0-2.0); EOS % 2.4 % (0-4.5); HEMATOCRIT 27.2 % (32.4-45.2); HEMOGLOBIN 9.1 GM/dL (10.7-15.3); LYMPH % 13.9 % (8-40); MCH 30.4 pg (25.7-33.7); MCHC 33.3 g/dl (32.0-36.0); MEAN CELL VOLUME 91.3 fl (80-96); MEAN PLT VOLUME 9.2 fl (7.5-11.1); MONO % 9.5 % (3.8-10.2); NEUT % 73.1 % (42.8-82.8); PLATELET COUNT 311 K/MM3 (134-434); RBC 2.98 M/mm3 (3.60-5.2); RDW 16.5 % (11.6-15.6); WHITE BLOOD COUNT 6.8 K/mm3 (4.0-10.0)
[2019-07-12 06:20] LABS: ALBUMIN 2.2 g/dl (3.4-5.0); BILIRUBIN,TOTAL 0.3 mg/dL (0.2-1); BLOOD UREA NITROGEN 6.6 mg/dL (7-18); CALCIUM 8.1 mg/dL (8.5-10.1); CREATININE 0.8 mg/dL (0.55-1.3); POTASSIUM 3.2 mmol/L (3.5-5.1)
[2019-07-12] MEDS ORDERED: cefTRIAXone SODIUM 1 GM VIAL ONE (08:23)
[2019-07-12] MEDS ORDERED: DEXTROSE 5%-WATER - 50 ML IVPB ONE (08:24)
[2019-07-12] MEDS: levETIRAcetam 500 MG/5 ML INJECTION VIAL IVPB SCH ×2 (09:17→21:53)
[2019-07-12] MEDS: CEFTRIAXONE 1 GM in DEXTROSE 5%-WATER - 50 ML IVPB SCH (09:18)
--- NOTE | 2019-07-12 10:56 | PN ---
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 (short form) - Note 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: PULMONARY Pt nonverbal. No overnight events. Vital Signs Period Temp Pulse Resp BP Sys/Rowland Pulse Ox Last 24 Hr 97.7 F-98.5 F 60-76 16-178 146-185/47-80 97-98 Gen: NAD at rest Heart: RRR Lung: decreased breath sounds at the bases Abd: soft, nontender Ext: no edema CBC, BMP 07/12/19 05:05 07/12/19 05:05 Active Medications Albuterol/Ipratropium (Duoneb -) 1 amp NEB Q15M PRN PRN Reason: WHEEZING Stop: 07/16/19 15:01 Chlorhexidine Gluconate (Hibiclens For Decolonization -) 1 applic TP HS [facility] Last Admin: 07/11/19 21:37 Dose: 1 applic Heparin Sodium (Porcine) (Heparin -) 5,000 unit SQ TID [facility] Last Admin: 07/12/19 05:21 Dose: 5,000 unit Ceftriaxone Sodium 1 gm/ (Dextrose) 50 mls @ 100 mls/hr IVPB DAILY [facility]; Protocol Last Admin: 07/12/19 09:18 Dose: 100 mls/hr Metronidazole (Flagyl 500mg Premixed Ivpb -) 500 mg in 100 mls @ 100 mls/hr IVPB Q8H-IV [facility] Last Admin: 07/12/19 09:17 Dose: 100 mls/hr Sodium Chloride (Normal Saline -) 1,000 mls @ 75 mls/hr IV ASDIR [facility] Last Admin: 07/11/19 21:36 Dose: Not Given Levetiracetam (Keppra Injection -) 500 mg IVPB BID [facility] Last Admin: 07/12/19 09:17 Dose: 500 mg A/P s/p Acute Respiratory Failure Breakthrough Seizure r/o Pneumonia Seizure Disorder +Troponins likely Demand Ischemia h/o CVA Parkinsons Dementia HTN - continue antiepileptics - antibiotics per ID - taper FiO2 to keep SpO2 >90% - BP control - will change IVF - aspiration precautions - DVT prophylaxis
[2019-07-12] MEDS ORDERED: D5-1/2NS+20 MEQ KCL - 20 MEQ/1,000 ML INFUS.BAG IV SCH (11:00)
[2019-07-12] MEDS: KCL 10 MEQ IVPB 10 MEQ/100 ML INFUS.BAG IVPB SCH ×3 (11:03→13:39)
[2019-07-12] MEDS ORDERED: hydrALAZINE HCL 20 MG/ML VIAL ONE (11:07)
[2019-07-12] MEDS: hydrALAZINE HCL 20 MG/ML VIAL IVPUSH PRN (11:08)
[2019-07-12 16:11] LABS: ARTERIAL BLD GAS O2 SATURATION 97.8 % (95-98); ARTERIAL BLOOD GAS BASE EXCESS -10.8 meq/l (-2-2); ARTERIAL BLOOD GAS PCO2 23.5 mmHg (35-45); ARTERIAL BLOOD GAS PO2 98.8 mmHg (80-100); ARTERIAL BLOOD GAS pH 7.36 (7.35-7.45)
[2019-07-12 16:15] LABS: ALLENS TEST POSITIVE
[2019-07-12] MEDS ORDERED: FUROSEMIDE 40 MG/4 ML INJECTABLE VIAL IVPUSH ONE (19:15)
--- NOTE | 2019-07-12 21:31 | PN ---
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, Physician History of Present Illness: Pt awake but nonverbal - Current Medication List Current Medications: Active Medications Albuterol/Ipratropium (Duoneb -) 1 amp NEB Q15M PRN PRN Reason: WHEEZING Stop: 07/16/19 15:01 Last Admin: 07/12/19 16:27 Dose: 1 amp Chlorhexidine Gluconate (Hibiclens For Decolonization -) 1 applic TP HS [facility] Last Admin: 07/11/19 21:37 Dose: 1 applic Heparin Sodium (Porcine) (Heparin -) 5,000 unit SQ TID [facility] Last Admin: 07/12/19 13:39 Dose: 5,000 unit Hydralazine HCl (Apresoline Injection -) 10 mg IVPUSH Q6H PRN PRN Reason: HYPERTENSION Last Admin: 07/12/19 11:08 Dose: 10 mg Ceftriaxone Sodium 1 gm/ (Dextrose) 50 mls @ 100 mls/hr IVPB DAILY [facility]; Protocol Last Admin: 07/12/19 09:18 Dose: 100 mls/hr Metronidazole (Flagyl 500mg Premixed Ivpb -) 500 mg in 100 mls @ 100 mls/hr IVPB Q8H-IV [facility] Last Admin: 07/12/19 17:17 Dose: 100 mls/hr Levetiracetam (Keppra Injection -) 500 mg IVPB BID [facility] Last Admin: 07/12/19 09:17 Dose: 500 mg - Objective Vital Signs: Vital Signs Temperature 98.4 F 07/12/19 18:00 Pulse Rate 80 07/12/19 18:00 Respiratory Rate 26 H 07/12/19 18:00 Blood Pressure 136/53 L 07/12/19 18:00 O2 Sat by Pulse Oximetry (%) 98 07/12/19 09:00 Constitutional: Yes: No Distress Neck: Yes: WNL, Supple Cardiovascular: Yes: WNL, Regular Rate and Rhythm Respiratory: Yes: Diminished Gastrointestinal: Yes: WNL, Normal Bowel Sounds, Soft Edema: LUE: Trace, RUE: Trace Labs: CBC, BMP 07/12/19 05:05 07/12/19 05:05 INR, PTT INR 0.96 (0.83-1.09) 07/06/19 21:40 Problem List - Problems (1) Seizure disorder Assessment/Plan: Cont keppra Code(s): G40.909 - EPILEPSY, UNSP, NOT INTRACTABLE, WITHOUT STATUS EPILEPTICUS (2) Acute respiratory distress Assessment/Plan: Cont IV flagyl/ceftriaxone Code(s): R06.03 - ACUTE RESPIRATORY DISTRESS (3) HTN (hypertension) Assessment/Plan: BP stable Code(s): I10 - ESSENTIAL (PRIMARY) HYPERTENSION (4) Parkinsons Code(s): G20 - PARKINSON'S DISEASE (5) Dementia Code(s): F03.90 - UNSPECIFIED DEMENTIA WITHOUT BEHAVIORAL DISTURBANCE
[2019-07-12] MEDS: CHLORHEXIDINE GLUCONATE 4% CLEANSER FOR DECOLONIZATION TP SCH (21:53)
[2019-07-13] MEDS: HEPARIN NA (PORCINE) 5,000 UNITS/ML 1ML VIAL SQ SCH ×3 (06:13→21:32)
--- NOTE | 2019-07-13 09:57 | PN ---
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, Physician History of Present Illness: REMAINS EXTUBATED LETHARGIC NOT CONVERSANT BREATHING NON LABORED ON NASAL CANNULA NO COMPLAINTS OFFERRED TEMPS, WBC DOWN AFEBRILE BC (-) SPUTUM NORMAL JULIO - Current Medication List Current Medications: Active Medications Albuterol/Ipratropium (Duoneb -) 1 amp NEB Q15M PRN PRN Reason: WHEEZING Stop: 07/16/19 15:01 Last Admin: 07/12/19 16:27 Dose: 1 amp Chlorhexidine Gluconate (Hibiclens For Decolonization -) 1 applic TP HS [facility] Last Admin: 07/12/19 21:53 Dose: 1 applic Heparin Sodium (Porcine) (Heparin -) 5,000 unit SQ TID [facility] Last Admin: 07/13/19 06:13 Dose: 5,000 unit Hydralazine HCl (Apresoline Injection -) 10 mg IVPUSH Q6H PRN PRN Reason: HYPERTENSION Last Admin: 07/12/19 11:08 Dose: 10 mg Ceftriaxone Sodium 1 gm/ (Dextrose) 50 mls @ 100 mls/hr IVPB DAILY [facility]; Protocol Last Admin: 07/12/19 09:18 Dose: 100 mls/hr Metronidazole (Flagyl 500mg Premixed Ivpb -) 500 mg in 100 mls @ 100 mls/hr IVPB Q8H-IV [facility] Last Admin: 07/13/19 02:02 Dose: 100 mls/hr Levetiracetam (Keppra Injection -) 500 mg IVPB BID [facility] Last Admin: 07/12/19 21:53 Dose: 500 mg - Objective Vital Signs: Vital Signs Temperature 98.4 F 07/13/19 06:00 Pulse Rate 64 07/13/19 06:00 Respiratory Rate 22 H 07/13/19 06:00 Blood Pressure 127/56 L 07/13/19 06:00 O2 Sat by Pulse Oximetry (%) 98 07/13/19 00:38 Constitutional: Yes: No Distress Eyes: Yes: Conjunctiva Clear Cardiovascular: Yes: Regular Rate and Rhythm, S1, S2 Respiratory: Yes: Diminished Gastrointestinal: Yes: Normal Bowel Sounds, Soft. No: Tenderness Edema: Yes Edema: LLE: 1+, RLE: 1+ Labs: CBC, BMP 07/12/19 05:05 07/12/19 05:05 INR, PTT INR 0.96 (0.83-1.09) 07/06/19 21:40 Assessment/Plan S/P RESP FAILURE EXTUBATED ? PNEUMONIA FEVER/ LEUKOCYTOSIS IMPROVED SEIZURE CONTINUE EMPIRIC CEFTRIAXONE/ FLAGYL
[2019-07-13] MEDS ORDERED: DEXTROSE 5%-WATER - 50 ML IVPB ONE (11:27)
[2019-07-13] MEDS ORDERED: cefTRIAXone SODIUM 1 GM VIAL ONE (11:27)
--- NOTE | 2019-07-13 11:28 | PN ---
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 (short form) - Note 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: PULMONARY Pt nonverbal. Congested yesterday confirmed by CXR. Given lasix. Vital Signs Period Temp Pulse Resp BP Sys/Rowland Pulse Ox Last 24 Hr 98 F-98.4 F 64-88 20-26 102-159/46-64 98-100 Intake & Output 07/10/19 07/11/19 07/12/19 07/13/19 23:59 23:59 23:59 23:59 Intake Total 2102 1850 2450 100 Output Total 440 300 925 Balance 1662 1550 2450 -825 Weight 47.4 kg 47 kg 47 kg 46.998 kg Gen: NAD at rest Heart: RRR Lung: scattered rhonchi Abd: soft, nontender Ext: no edema CBC, BMP 07/12/19 05:05 07/12/19 05:05 Active Medications Albuterol/Ipratropium (Duoneb -) 1 amp NEB Q15M PRN PRN Reason: WHEEZING Stop: 07/16/19 15:01 Last Admin: 07/12/19 16:27 Dose: 1 amp Chlorhexidine Gluconate (Hibiclens For Decolonization -) 1 applic TP HS [facility] Last Admin: 07/12/19 21:53 Dose: 1 applic Heparin Sodium (Porcine) (Heparin -) 5,000 unit SQ TID [facility] Last Admin: 07/13/19 06:13 Dose: 5,000 unit Hydralazine HCl (Apresoline Injection -) 10 mg IVPUSH Q6H PRN PRN Reason: HYPERTENSION Last Admin: 07/12/19 11:08 Dose: 10 mg Ceftriaxone Sodium 1 gm/ (Dextrose) 50 mls @ 100 mls/hr IVPB DAILY [facility]; Protocol Last Admin: 07/12/19 09:18 Dose: 100 mls/hr Metronidazole (Flagyl 500mg Premixed Ivpb -) 500 mg in 100 mls @ 100 mls/hr IVPB Q8H-IV [facility] Last Admin: 07/13/19 02:02 Dose: 100 mls/hr Levetiracetam (Keppra Injection -) 500 mg IVPB BID [facility] Last Admin: 07/12/19 21:53 Dose: 500 mg A/P s/p Acute Respiratory Failure Breakthrough Seizure r/o Pneumonia Seizure Disorder +Troponins likely Demand Ischemia h/o CVA Parkinsons Dementia HTN - continue antiepileptics - antibiotics per ID - taper FiO2 to keep SpO2 >90% - BP control - will give another dose of lasix today - repeat CXR in AM - aspiration precautions - DVT prophylaxis
[2019-07-13] MEDS: CEFTRIAXONE 1 GM in DEXTROSE 5%-WATER - 50 ML IVPB SCH (11:34)
[2019-07-13] MEDS: levETIRAcetam 500 MG/5 ML INJECTION VIAL IVPB SCH ×2 (11:38→21:32)
[2019-07-13] MEDS ORDERED: FUROSEMIDE 40 MG/4 ML INJECTABLE VIAL IVPUSH ONE (11:45)
[2019-07-13] MEDS: hydrALAZINE HCL 20 MG/ML VIAL IVPUSH PRN (12:18)
--- NOTE | 2019-07-13 14:14 | PN ---
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, DESKTOP ANALYST - Note 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: Selected Entries 07/12/19 07/12/19 07/12/19 02:00 06:00 08:11 Supper Temperature 98.1 F 98.4 F 97.7 F 07/12/19 07/12/19 07/12/19 14:06 18:00 22:00 Supper NPO Temperature 98 F 98.4 F 98.4 F 07/13/19 07/13/19 02:00 06:00 Supper Temperature 98.4 F 98.4 F Laboratory Tests 07/12/19 05:05 WBC 6.8 Lethargic, bubbles/saliva on her lips. Not sufficiently arousable for PO trials. at bedside.
[2019-07-13] MEDS: CHLORHEXIDINE GLUCONATE 4% CLEANSER FOR DECOLONIZATION TP SCH (21:32)
--- NOTE | 2019-07-13 22:01 | PN ---
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, Physician - Current Medication List Current Medications: Active Medications Albuterol/Ipratropium (Duoneb -) 1 amp NEB Q15M PRN PRN Reason: WHEEZING Stop: 07/16/19 15:01 Last Admin: 07/12/19 16:27 Dose: 1 amp Chlorhexidine Gluconate (Hibiclens For Decolonization -) 1 applic TP HS [facility] Last Admin: 07/13/19 21:32 Dose: 1 applic Heparin Sodium (Porcine) (Heparin -) 5,000 unit SQ TID [facility] Last Admin: 07/13/19 21:32 Dose: 5,000 unit Hydralazine HCl (Apresoline Injection -) 10 mg IVPUSH Q6H PRN PRN Reason: HYPERTENSION Last Admin: 07/13/19 12:18 Dose: 10 mg Ceftriaxone Sodium 1 gm/ (Dextrose) 50 mls @ 100 mls/hr IVPB DAILY [facility]; Protocol Last Admin: 07/13/19 11:34 Dose: 100 mls/hr Metronidazole (Flagyl 500mg Premixed Ivpb -) 500 mg in 100 mls @ 100 mls/hr IVPB Q8H-IV [facility] Last Admin: 07/13/19 17:53 Dose: 100 mls/hr Levetiracetam (Keppra Injection -) 500 mg IVPB BID [facility] Last Admin: 07/13/19 21:32 Dose: 500 mg - Objective Vital Signs: Vital Signs Temperature 98 F 07/13/19 18:00 Pulse Rate 74 07/13/19 18:00 Respiratory Rate 21 H 07/13/19 18:00 Blood Pressure 114/54 L 07/13/19 18:00 O2 Sat by Pulse Oximetry (%) 100 07/13/19 09:00 Labs: CBC, BMP 07/12/19 05:05 07/12/19 05:05 INR, PTT INR 0.96 (0.83-1.09) 07/06/19 21:40 Problem List - Problems (1) Seizure disorder Code(s): G40.909 - EPILEPSY, UNSP, NOT INTRACTABLE, WITHOUT STATUS EPILEPTICUS (2) Acute respiratory distress Code(s): R06.03 - ACUTE RESPIRATORY DISTRESS (3) HTN (hypertension) Code(s): I10 - ESSENTIAL (PRIMARY) HYPERTENSION (4) Parkinsons Code(s): G20 - PARKINSON'S DISEASE (5) Dementia Code(s): F03.90 - UNSPECIFIED DEMENTIA WITHOUT BEHAVIORAL DISTURBANCE
[2019-07-13] MEDS: KCL 10 MEQ IVPB 10 MEQ/100 ML INFUS.BAG IVPB SCH ×2 (22:37→23:44)
[2019-07-14] MEDS: KCL 10 MEQ IVPB 10 MEQ/100 ML INFUS.BAG IVPB SCH (00:50)
[2019-07-14] MEDS: HEPARIN NA (PORCINE) 5,000 UNITS/ML 1ML VIAL SQ SCH ×3 (06:13→22:04)
[2019-07-14 06:29] LABS: BASO % 1.2 % (0-2.0); HEMATOCRIT 30.5 % (32.4-45.2); HEMOGLOBIN 10.4 GM/dL (10.7-15.3); MCH 30.9 pg (25.7-33.7); MCHC 33.9 g/dl (32.0-36.0); MEAN CELL VOLUME 90.9 fl (80-96); MEAN PLT VOLUME 9.1 fl (7.5-11.1); MONO % 10.5 % (3.8-10.2); NEUT % 71.3 % (42.8-82.8); PLATELET COUNT 383 K/MM3 (134-434); RBC 3.36 M/mm3 (3.60-5.2); RDW 16.8 % (11.6-15.6); WHITE BLOOD COUNT 7.1 K/mm3 (4.0-10.0)
[2019-07-14 06:36] LABS: ALBUMIN 2.3 g/dl (3.4-5.0); BILIRUBIN,TOTAL 0.3 mg/dL (0.2-1); BLOOD UREA NITROGEN 3.6 mg/dL (7-18); CALCIUM 8.2 mg/dL (8.5-10.1); CREATININE 0.8 mg/dL (0.55-1.3); MAGNESIUM 1.7 mg/dL (1.8-2.4); POTASSIUM 3.2 mmol/L (3.5-5.1); TOT PROT 4.9 g/dl (6.4-8.2)
[2019-07-14 06:50] LABS: PHOSPHOROUS 0.9 mg/dL (2.5-4.9)
[2019-07-14] MEDS ORDERED: cefTRIAXone SODIUM 1 GM VIAL ONE (09:43)
[2019-07-14] MEDS ORDERED: DEXTROSE 5%-WATER - 50 ML IVPB ONE (09:43)
[2019-07-14] MEDS: CEFTRIAXONE 1 GM in DEXTROSE 5%-WATER - 50 ML IVPB SCH (10:04)
[2019-07-14] MEDS: levETIRAcetam 500 MG/5 ML INJECTION VIAL IVPB SCH ×2 (10:06→22:04)
--- NOTE | 2019-07-14 11:58 | PN ---
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 (short form) - Note 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: PULMONARY Pt nonverbal. Repeat CXR with congestive changes. Vital Signs Period Temp Pulse Resp BP Sys/Rowland Pulse Ox Last 24 Hr 98 F-98.8 F 74-85 21-24 114-187/4-64 100-100 Intake & Output 07/11/19 07/12/19 07/13/19 07/14/19 23:59 23:59 23:59 23:59 Intake Total 1850 2450 100 300 Output Total 300 1955 Balance 1550 2450 -1855 300 Weight 47 kg 47 kg 46.998 kg 47.763 kg Gen: NAD at rest Heart: RRR Lung: scattered rhonchi Abd: soft, nontender Ext: no edema CBC, BMP 07/14/19 05:18 07/14/19 05:18 Active Medications Albuterol/Ipratropium (Duoneb -) 1 amp NEB Q15M PRN PRN Reason: WHEEZING Stop: 07/16/19 15:01 Last Admin: 07/12/19 16:27 Dose: 1 amp Chlorhexidine Gluconate (Hibiclens For Decolonization -) 1 applic TP HS [facility] Last Admin: 07/13/19 21:32 Dose: 1 applic Heparin Sodium (Porcine) (Heparin -) 5,000 unit SQ TID [facility] Last Admin: 07/14/19 06:13 Dose: 5,000 unit Hydralazine HCl (Apresoline Injection -) 10 mg IVPUSH Q6H PRN PRN Reason: HYPERTENSION Last Admin: 07/13/19 12:18 Dose: 10 mg Ceftriaxone Sodium 1 gm/ (Dextrose) 50 mls @ 100 mls/hr IVPB DAILY [facility]; Protocol Last Admin: 07/14/19 10:04 Dose: 100 mls/hr Metronidazole (Flagyl 500mg Premixed Ivpb -) 500 mg in 100 mls @ 100 mls/hr IVPB Q8H-IV [facility] Last Admin: 07/14/19 10:06 Dose: 100 mls/hr Potassium Phosphate 30 mm/ (Dextrose) 260 mls @ 62.5 mls/hr IVPB ONCE ONE Stop: 07/14/19 16:05 Levetiracetam (Keppra Injection -) 500 mg IVPB BID [facility] Last Admin: 07/14/19 10:06 Dose: 500 mg A/P s/p Acute Respiratory Failure Breakthrough Seizure r/o Pneumonia Seizure Disorder +Troponins likely Demand Ischemia h/o CVA Parkinsons Dementia HTN - continue antiepileptics - antibiotics per ID - taper FiO2 to keep SpO2 >90% - BP control - will give another dose of lasix today - aspiration precautions - DVT prophylaxis - continue discussions regarding goals of care
[2019-07-14] MEDS ORDERED: FUROSEMIDE 40 MG/4 ML INJECTABLE VIAL IVPUSH ONE (12:30)
[2019-07-14] MEDS ORDERED: POTASSIUM PHOSPHATE 30 MM in DEXTROSE 5%-WATER - 250 ML IVPB ONE (13:30)
--- NOTE | 2019-07-14 14:51 | PN ---
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, CLINICAL STUDIES SPECIALIST - Note 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: Selected Entries 07/13/19 07/13/19 07/13/19 02:00 06:00 08:00 Supper Temperature 98.4 F 98.4 F 98.1 F 07/13/19 07/13/19 07/13/19 12:00 18:00 22:00 Supper Temperature 98 F 98 F 98.7 F 07/13/19 07/14/19 07/14/19 22:42 03:00 06:29 Supper NPO Temperature 98.5 F 98.8 F Laboratory Tests 07/14/19 05:18 WBC 7.1 Sleeping. Limited arousability.NPO. Pt is DNR.Seen by Palliative care 07/09. f/u palliative care consult- address pt's end of life wishes regarding nutrition. Consider PEG insertion/comfort/hospice.
--- NOTE | 2019-07-14 16:07 | PN ---
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 (short form) - Note 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: extubated nonverbal nad Vital Signs Period Temp Pulse Resp BP Sys/Rowland Pulse Ox Last 24 Hr 98 F-98.8 F 74-85 21-24 114-163/4-64 100-100 cor-rrr lungs decreased bs at bases abd soft,nt ext no edema CBC, BMP 07/14/19 05:18 07/14/19 05:18 Microbiology 07/06/19 11:57 Blood - Peripheral Venous Blood Culture - Final NO GROWTH AFTER 5 DAYS INCUBATION 07/06/19 21:42 Blood - Peripheral Venous Blood Culture - Final NO GROWTH AFTER 5 DAYS INCUBATION 07/08/19 17:45 Urine For Antigen Detection Legionella Antigen - Final 07/08/19 17:45 Urine For Antigen Detection Streptococcus pneumoniae Antigen (M - Final 07/07/19 11:00 Sputum - Endotrachea Suction/Ventilator Gram Stain - Final 07/07/19 11:00 Sputum - Endotrachea Suction/Ventilator Sputum Culture - Final NORMAL RESPIRATORY JULIO 07/06/19 21:40 Urine - Urine Torrez Urine Culture - Final NO GROWTH OBTAINED Current Medications Albuterol/Ipratropium (Duoneb -) 1 amp NEB Q15M PRN PRN Reason: WHEEZING Stop: 07/16/19 15:01 Last Admin: 07/12/19 16:27 Dose: 1 amp Chlorhexidine Gluconate (Hibiclens For Decolonization -) 1 applic TP HS [facility] Last Admin: 07/13/19 21:32 Dose: 1 applic Heparin Sodium (Porcine) (Heparin -) 5,000 unit SQ TID [facility] Last Admin: 07/14/19 13:50 Dose: 5,000 unit Hydralazine HCl (Apresoline Injection -) 10 mg IVPUSH Q6H PRN PRN Reason: HYPERTENSION Last Admin: 07/13/19 12:18 Dose: 10 mg Ceftriaxone Sodium 1 gm/ (Dextrose) 50 mls @ 100 mls/hr IVPB DAILY [facility]; Protocol Last Admin: 07/14/19 10:04 Dose: 100 mls/hr Metronidazole (Flagyl 500mg Premixed Ivpb -) 500 mg in 100 mls @ 100 mls/hr IVPB Q8H-IV [facility] Last Admin: 07/14/19 10:06 Dose: 100 mls/hr Potassium Phosphate 30 mm/ (Dextrose) 260 mls @ 62.5 mls/hr IVPB ONCE ONE Stop: 07/14/19 17:39 Last Admin: 07/14/19 16:06 Dose: 62.5 mls/hr Levetiracetam (Keppra Injection -) 500 mg IVPB BID [facility] Last Admin: 07/14/19 10:06 Dose: 500 mg a/p seizure-breakthrough r/o cva now extubated history of PD day #7 antiibotics for possible pneumonia will d/c and observe f/u with neurology Problem List - Problems (1) Seizure disorder Code(s): G40.909 - EPILEPSY, UNSP, NOT INTRACTABLE, WITHOUT STATUS EPILEPTICUS (2) CVA (cerebral vascular accident) Code(s): I63.9 - CEREBRAL INFARCTION, UNSPECIFIED (3) Leukocytosis Code(s): D72.829 - ELEVATED WHITE BLOOD CELL COUNT, UNSPECIFIED (4) Aspiration pneumonia Code(s): J69.0 - PNEUMONITIS DUE TO INHALATION OF FOOD AND VOMIT (5) Respiratory failure Code(s): J96.90 - RESPIRATORY FAILURE, UNSP, UNSP W HYPOXIA OR HYPERCAPNIA
--- NOTE | 2019-07-14 21:44 | PN ---
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, Physician - Current Medication List Current Medications: Active Medications Albuterol/Ipratropium (Duoneb -) 1 amp NEB Q15M PRN PRN Reason: WHEEZING Stop: 07/16/19 15:01 Last Admin: 07/12/19 16:27 Dose: 1 amp Chlorhexidine Gluconate (Hibiclens For Decolonization -) 1 applic TP HS [facility] Last Admin: 07/13/19 21:32 Dose: 1 applic Heparin Sodium (Porcine) (Heparin -) 5,000 unit SQ TID [facility] Last Admin: 07/14/19 13:50 Dose: 5,000 unit Hydralazine HCl (Apresoline Injection -) 10 mg IVPUSH Q6H PRN PRN Reason: HYPERTENSION Last Admin: 07/13/19 12:18 Dose: 10 mg Levetiracetam (Keppra Injection -) 500 mg IVPB BID [facility] Last Admin: 07/14/19 10:06 Dose: 500 mg - Objective Vital Signs: Vital Signs Temperature 98.3 F 07/14/19 19:00 Pulse Rate 84 07/14/19 19:00 Respiratory Rate 22 H 07/14/19 19:57 Blood Pressure 137/55 L 07/14/19 19:00 O2 Sat by Pulse Oximetry (%) 100 07/14/19 19:57 Labs: CBC, BMP 07/14/19 05:18 07/14/19 05:18 INR, PTT INR 0.96 (0.83-1.09) 07/06/19 21:40 Problem List - Problems (1) Seizure disorder Code(s): G40.909 - EPILEPSY, UNSP, NOT INTRACTABLE, WITHOUT STATUS EPILEPTICUS (2) Acute respiratory distress Code(s): R06.03 - ACUTE RESPIRATORY DISTRESS (3) HTN (hypertension) Code(s): I10 - ESSENTIAL (PRIMARY) HYPERTENSION (4) Parkinsons Code(s): G20 - PARKINSON'S DISEASE (5) Dementia Code(s): F03.90 - UNSPECIFIED DEMENTIA WITHOUT BEHAVIORAL DISTURBANCE
[2019-07-14] MEDS: CHLORHEXIDINE GLUCONATE 4% CLEANSER FOR DECOLONIZATION TP SCH (22:04)
[2019-07-15] MEDS: HEPARIN NA (PORCINE) 5,000 UNITS/ML 1ML VIAL SQ SCH ×3 (06:02→21:57)
[2019-07-15 06:53] LABS: ALBUMIN 2.2 g/dl (3.4-5.0); BILIRUBIN,TOTAL 0.3 mg/dL (0.2-1); BLOOD UREA NITROGEN 3.8 mg/dL (7-18); CALCIUM 7.8 mg/dL (8.5-10.1); CREATININE 0.8 mg/dL (0.55-1.3); MAGNESIUM 1.2 mg/dL (1.8-2.4); PHOSPHOROUS 2.5 mg/dL (2.5-4.9); POTASSIUM 3.5 mmol/L (3.5-5.1); TOT PROT 4.9 g/dl (6.4-8.2)
[2019-07-15 07:26] LABS: BASO % 1.6 % (0-2.0); EOS % 0.8 % (0-4.5); HEMOGLOBIN 9.4 GM/dL (10.7-15.3); LYMPH % 13.2 % (8-40); MCH 30.5 pg (25.7-33.7); MCHC 33.6 g/dl (32.0-36.0); MEAN CELL VOLUME 90.6 fl (80-96); MEAN PLT VOLUME 9.2 fl (7.5-11.1); MONO % 9.4 % (3.8-10.2); PLATELET COUNT 404 K/MM3 (134-434); RBC 3.09 M/mm3 (3.60-5.2); RDW 16.8 % (11.6-15.6)
[2019-07-15] MEDS: levETIRAcetam 500 MG/5 ML INJECTION VIAL IVPB SCH ×2 (09:07→21:58)
[2019-07-15] MEDS ORDERED: MAGNESIUM SULF 50% (8.12 MEQ/2 ML-1 GM VIAL) IVPB ONE (12:06)
[2019-07-15] MEDS ORDERED: FUROSEMIDE 40 MG/4 ML INJECTABLE VIAL IVPUSH ONE (12:07)
--- NOTE | 2019-07-15 12:07 | PN ---
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 (short form) - Note 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: PULMONARY Pt nonverbal. Has been tolerating PO. Vital Signs Period Temp Pulse Resp BP Sys/Rowland Pulse Ox Last 24 Hr 97.8 F-98.3 F 70-84 18-23 137-164/55-69 100-100 Intake & Output 07/12/19 07/13/19 07/14/19 07/15/19 23:59 23:59 23:59 23:59 Intake Total 2450 100 800 120 Output Total 1955 Balance 2450 -1855 800 120 Weight 47 kg 46.998 kg 47.763 kg 41.05 kg Gen: NAD at rest Heart: RRR Lung: scattered rhonchi Abd: soft, nontender Ext: no edema CBC, BMP 07/15/19 05:30 07/15/19 05:30 Active Medications Albuterol/Ipratropium (Duoneb -) 1 amp NEB Q15M PRN PRN Reason: WHEEZING Stop: 07/16/19 15:01 Last Admin: 07/12/19 16:27 Dose: 1 amp Chlorhexidine Gluconate (Hibiclens For Decolonization -) 1 applic TP HS [facility] Last Admin: 07/14/19 22:04 Dose: 1 applic Heparin Sodium (Porcine) (Heparin -) 5,000 unit SQ TID [facility] Last Admin: 07/15/19 06:02 Dose: 5,000 unit Hydralazine HCl (Apresoline Injection -) 10 mg IVPUSH Q6H PRN PRN Reason: HYPERTENSION Last Admin: 07/13/19 12:18 Dose: 10 mg Levetiracetam (Keppra Injection -) 500 mg IVPB BID [facility] Last Admin: 07/15/19 09:07 Dose: 500 mg Magnesium Sulfate (Magnesium Sulfate) 2 gm IVPB ONCE ONE Stop: 07/15/19 12:07 A/P s/p Acute Respiratory Failure Breakthrough Seizure r/o Pneumonia Seizure Disorder +Troponins likely Demand Ischemia h/o CVA Parkinsons Dementia HTN - continue antiepileptics - antibiotics per ID - taper FiO2 to keep SpO2 >90% - BP control - will give another dose of lasix today - repeat CXR in AM - PO as tolerated - aspiration precautions - DVT prophylaxis - continue discussions regarding goals of care
--- NOTE | 2019-07-15 12:33 | PN ---
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, SOLID PROPELLANT PROCESSOR - Note 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: Selected Entries 07/14/19 07/15/19 07/15/19 21:05 03:00 04:56 Breakfast Supper 0 Temperature 98.2 F 98.3 F 07/15/19 07/15/19 09:29 10:00 Breakfast 75% 75% Supper Temperature Laboratory Tests 07/15/19 05:30 WBC 8.0 Pt more alert today, reportedly did quite well this am with breakfast, fed by nurse. Reg diet/thin liquids ordered. In past, pt was on dys minced diet and thin liquids. Pt accepted more by mouth when her fed her. Limited dentition. At home, pt's made soft food and mashed it for her.She can not chew and holds food for extending time. Reg diet ordered but puree sent for lunch which is better. Rec: Dys puree/ Ensure/ ice cream Feed only when alert.TELL PT TO SWALLOW WITH EACH BITE. Small Bites, HOB elevated, Chin Tuck/Down, Clear Pocket Food, Trial Feedings, Safe Rate, 1/2 tsp. at a time, alternate food with sip of liquid.
--- NOTE | 2019-07-15 21:52 | PN ---
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, Physician - Current Medication List Current Medications: Active Medications Albuterol/Ipratropium (Duoneb -) 1 amp NEB Q15M PRN PRN Reason: WHEEZING Stop: 07/16/19 15:01 Last Admin: 07/12/19 16:27 Dose: 1 amp Chlorhexidine Gluconate (Hibiclens For Decolonization -) 1 applic TP HS [facility] Last Admin: 07/14/19 22:04 Dose: 1 applic Heparin Sodium (Porcine) (Heparin -) 5,000 unit SQ TID [facility] Last Admin: 07/15/19 13:04 Dose: 5,000 unit Hydralazine HCl (Apresoline Injection -) 10 mg IVPUSH Q6H PRN PRN Reason: HYPERTENSION Last Admin: 07/13/19 12:18 Dose: 10 mg Levetiracetam (Keppra Injection -) 500 mg IVPB BID [facility] Last Admin: 07/15/19 09:07 Dose: 500 mg - Objective Vital Signs: Vital Signs Temperature 98.2 F 07/15/19 12:00 Pulse Rate 92 H 07/15/19 16:00 Respiratory Rate 24 H 07/15/19 16:00 Blood Pressure 133/57 L 07/15/19 16:00 O2 Sat by Pulse Oximetry (%) 100 07/15/19 09:00 Labs: CBC, BMP 07/15/19 05:30 07/15/19 05:30 INR, PTT INR 0.96 (0.83-1.09) 07/06/19 21:40 Problem List - Problems (1) Seizure disorder Code(s): G40.909 - EPILEPSY, UNSP, NOT INTRACTABLE, WITHOUT STATUS EPILEPTICUS (2) Acute respiratory distress Code(s): R06.03 - ACUTE RESPIRATORY DISTRESS (3) HTN (hypertension) Code(s): I10 - ESSENTIAL (PRIMARY) HYPERTENSION (4) Parkinsons Code(s): G20 - PARKINSON'S DISEASE (5) Dementia Code(s): F03.90 - UNSPECIFIED DEMENTIA WITHOUT BEHAVIORAL DISTURBANCE
[2019-07-15] MEDS: CHLORHEXIDINE GLUCONATE 4% CLEANSER FOR DECOLONIZATION TP SCH (21:58)
[2019-07-16] MEDS: HEPARIN NA (PORCINE) 5,000 UNITS/ML 1ML VIAL SQ SCH ×3 (05:23→21:19)
[2019-07-16 06:17] LABS: WHITE BLOOD COUNT 9.1 K/mm3 (4.0-10.0)
[2019-07-16 06:18] LABS: BASO % 0.7 % (0-2.0); EOS % 1.3 % (0-4.5); HEMATOCRIT 27.5 % (32.4-45.2); HEMOGLOBIN 9.3 GM/dL (10.7-15.3); LYMPH % 14.6 % (8-40); MCH 30.4 pg (25.7-33.7); MCHC 33.7 g/dl (32.0-36.0); MEAN CELL VOLUME 90.2 fl (80-96); MONO % 11.4 % (3.8-10.2); PLATELET COUNT 436 K/MM3 (134-434); RBC 3.05 M/mm3 (3.60-5.2); RDW 16.5 % (11.6-15.6)
[2019-07-16 06:43] LABS: BLOOD UREA NITROGEN 5.4 mg/dL (7-18); CALCIUM 7.7 mg/dL (8.5-10.1); CREATININE 0.9 mg/dL (0.55-1.3); MAGNESIUM 1.7 mg/dL (1.8-2.4); PHOSPHOROUS 1.8 mg/dL (2.5-4.9)
[2019-07-16] MEDS: levETIRAcetam 500 MG/5 ML INJECTION VIAL IVPB SCH (09:24)
--- NOTE | 2019-07-16 14:00 | PN ---
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 (short form) - Note 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: Awake. Non-verbal. Mildly tachypneic at rest but in NAD. Intake & Output 07/13/19 07/14/19 07/15/19 07/16/19 23:59 23:59 23:59 23:59 Intake Total 100 800 260 Output Total 5 Balance -185 800 260 Weight 103 lb 9.8 oz 105 lb 4.8 oz 90 lb 8 oz 92 lb 4.8 oz Last Vital Signs Temp Pulse Resp BP Pulse Ox 98.2 F 81 25 H 153/56 L 100 07/16/19 08:29 07/16/19 08:29 07/16/19 08:29 07/16/19 08:29 07/16/19 08:29 Active Medications Albuterol/Ipratropium (Duoneb -) 1 amp NEB Q15M PRN PRN Reason: WHEEZING Stop: 07/16/19 15:01 Last Admin: 07/12/19 16:27 Dose: 1 amp Chlorhexidine Gluconate (Hibiclens For Decolonization -) 1 applic TP HS [facility] Last Admin: 07/15/19 21:58 Dose: 1 applic Heparin Sodium (Porcine) (Heparin -) 5,000 unit SQ TID [facility] Last Admin: 07/16/19 05:23 Dose: 5,000 unit Hydralazine HCl (Apresoline Injection -) 10 mg IVPUSH Q6H PRN PRN Reason: HYPERTENSION Last Admin: 07/13/19 12:18 Dose: 10 mg Levetiracetam (Keppra Injection -) 500 mg IVPB BID [facility] Last Admin: 07/16/19 09:24 Dose: 500 mg Gen: Awake, mildly tachypneic Heart: RRR Lung: scattered rhonchi Abd: soft, nontender Ext: no edema Laboratory Results - last 24 hr 07/16/19 07/16/19 05:00 05:00 WBC 9.1 RBC 3.05 L Hgb 9.3 L Hct 27.5 L MCV 90.2 MCH 30.4 MCHC 33.7 RDW 16.5 H Plt Count 436 H MPV 9.0 Absolute Neuts (auto) 6.6 Neutrophils % 72.0 Lymphocytes % 14.6 Monocytes % 11.4 H Eosinophils % 1.3 Basophils % 0.7 Nucleated RBC % 0 Sodium 148 H Potassium 3.0 L Chloride 111 H Carbon Dioxide 28 Anion Gap 9 BUN 5.4 L Creatinine 0.9 Est GFR (CKD-EPI)AfAm 66.63 Est GFR (CKD-EPI)NonAf 57.49 Random Glucose 115 H Calcium 7.7 L Phosphorus 1.8 L Magnesium 1.7 L A/P s/p Acute Respiratory Failure Breakthrough Seizure r/o Pneumonia Seizure Disorder +Troponins likely Demand Ischemia h/o CVA Parkinsons Dementia HTN - continue antiepileptics - Completed ABX - O2 as needed - PO as tolerated - aspiration precautions - DVT prophylaxis - continue discussions regarding goals of care Dr Narayanan
--- NOTE | 2019-07-16 14:12 | PN ---
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, PROGRAM COORDINATOR - Note 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: Selected Entries 07/14/19 07/15/19 07/15/19 21:05 03:00 04:56 Breakfast Supper 0 Temperature 98.2 F 98.3 F 07/15/19 07/15/19 09:29 10:00 Breakfast 75% 75% Supper Temperature Laboratory Tests 07/15/19 05:30 WBC 8.0 Reg diet/thin liquids ordered. Dietary is sending puree/thin liquids until Diet order is downgraded. Tolerating diet well. Oral holding with need to verbally cue pt to swallow, alternate puree with liquids. Rec:MD order needed- Dys puree/ Ensure/ ice cream Feed only when alert.TELL PT TO SWALLOW WITH EACH BITE. Small Bites, HOB elevated, Chin Tuck/Down, Clear Pocket Food, Trial Feedings, Safe Rate, 1/2 tsp. at a time and alternate food with sip of liquid.
[2019-07-16] MEDS: KCL 10 MEQ IVPB 10 MEQ/100 ML INFUS.BAG IVPB SCH ×3 (16:14→20:10)
[2019-07-16] MEDS ORDERED: hydrALAZINE HCL 20 MG/ML VIAL IVPUSH PRN (17:17)
[2019-07-16] MEDS: levETIRAcetam 500 MG TABLET (FP) PO SCH (21:19)
[2019-07-16] MEDS ORDERED: CHLORHEXIDINE GLUCONATE 4% CLEANSER FOR DECOLONIZATION TP SCH (22:00)
--- NOTE | 2019-07-17 01:47 | PN ---
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, Physician History of Present Illness: Pt seen and examined 07/16/19 however due to internet being down note is being entered now - Current Medication List Current Medications: Active Medications Heparin Sodium (Porcine) (Heparin -) 5,000 unit SQ TID [facility] Last Admin: 07/16/19 21:19 Dose: 5,000 unit Hydralazine HCl (Apresoline Injection -) 10 mg IVPUSH Q6H PRN PRN Reason: HYPERTENSION Levetiracetam (Keppra -) 500 mg PO BID [facility] Last Admin: 07/16/19 21:19 Dose: 500 mg - Objective Vital Signs: Vital Signs Temperature 99.0 F 07/16/19 23:07 Pulse Rate 106 H 07/16/19 23:07 Respiratory Rate 20 07/16/19 23:07 Blood Pressure 165/93 07/16/19 23:07 O2 Sat by Pulse Oximetry (%) 98 07/16/19 21:00 Labs: CBC, BMP 07/16/19 05:00 07/16/19 05:00 INR, PTT INR 0.96 (0.83-1.09) 07/06/19 21:40 Problem List - Problems (1) Seizure disorder Code(s): G40.909 - EPILEPSY, UNSP, NOT INTRACTABLE, WITHOUT STATUS EPILEPTICUS (2) Acute respiratory distress Code(s): R06.03 - ACUTE RESPIRATORY DISTRESS (3) HTN (hypertension) Code(s): I10 - ESSENTIAL (PRIMARY) HYPERTENSION (4) Parkinsons Code(s): G20 - PARKINSON'S DISEASE (5) Dementia Code(s): F03.90 - UNSPECIFIED DEMENTIA WITHOUT BEHAVIORAL DISTURBANCE
[2019-07-17] MEDS ORDERED: LORazepam 2 MG/ML SDV VIAL ONE (06:21)
[2019-07-17] MEDS ORDERED: levETIRAcetam 500 MG/5 ML INJECTION VIAL IVPB ONE ×3 (06:26→08:15)
[2019-07-17] MEDS ORDERED: LORazepam 2 MG/ML SDV VIAL IM ONE (06:32)
--- NOTE | 2019-07-17 06:43 | HOSP ---
Subjective - Review of Symptoms Events since last encounter: RN noted patient with no urine output, bladder scan done noted with 500 cc, alvarado cath inserted, draining concentrated urine, then around 6:15 am noted with active seizure activity given ativan 1 mg, and keppra 500 mg IVPB, STAT labs ordered, follwo up STAT cbc, bmp, keppra, level , urinalysis , urine culture. General: No: Chills, Night Sweats, Fatigue, Malaise, Appetite, Other HEENT: No: Head Aches, Visual Changes, Eye Pain, Ear Pain, Dysphasia, Sinus Congestion, Post Nasal Drip, Sore Throat, Other Pulmonary: No: Dyspnea, Cough, Pleuritic Chest Pain, Other Cardiovascular: No: Chest Pain, Palpitations, Orthopnea, Paroxysmal Noc. Dyspnea , Edema, Light Headedness, Other Gastrointestinal: No: Nausea, NOSYM, Vomiting, Abdominal Pain, Diarrhea, Constipation, Melena, Hematochezia, Other Genitourinary: No: Dysuria, NOSYM, Frequency, Incontinence, Hematuria, Retention , Other Musculoskeletal: No: No Symptoms, Back Pain, Crepitus, Decreased ROM, Extremity Pain, Joint Pain, Joint Swelling, Muscle Pain, Muscle Cramps, Muscle Weakness, Other Physical Examination Vital Signs: Vital Signs Temperature 100.8 F H 07/17/19 02:52 Pulse Rate 118 H 07/17/19 02:52 Respiratory Rate 24 H 07/17/19 02:52 Blood Pressure 151/97 07/17/19 02:44 O2 Sat by Pulse Oximetry (%) 98 07/16/19 21:00 Constitutional: Yes: Cachectic, Other (noted with tremors, jerking movement) Neck: Yes: Trachea Midline Cardiovascular: Yes: Regular Rate and Rhythm Respiratory: Yes: Regular, CTA Bilaterally Gastrointestinal: Yes: Normal Bowel Sounds, Soft Labs: CBC, BMP 07/16/19 05:00 07/16/19 05:00 Hospitalist Encounter Assessment: Acute seziure activity - given ativan 1mg, keppra 500 mg IVPB x1 - STAT CBC, bmp, keppra level - follow up UA / C&S - alvarado cath in place - tried to reach dr. Crespo unable to reach ? phone were down due to outage
[2019-07-17] MEDS: HEPARIN NA (PORCINE) 5,000 UNITS/ML 1ML VIAL SQ SCH ×3 (06:47→21:10)
[2019-07-17] MEDS ORDERED: LORazepam 2 MG/ML SDV VIAL IVPB ONE (07:21)
[2019-07-17] MEDS ORDERED: LORazepam 2 MG/ML SDV VIAL IVPUSH ONE (08:13)
[2019-07-17] MEDS ORDERED: FOSPHENYTOIN SODIUM 1,000 MG in SODIUM CHLORIDE 100 ML IVPB ONE (08:14)
--- NOTE | 2019-07-17 08:16 | RAPID ---
<Vanessa Sosa - Last Filed: 07/17/19 21:24> Physical Examination Vital Signs: Vital Signs Temperature 99.7 F H 07/17/19 06:00 Pulse Rate 118 H 07/17/19 06:00 Respiratory Rate 24 H 07/17/19 06:00 Blood Pressure 158/71 07/17/19 06:00 O2 Sat by Pulse Oximetry (%) 98 07/16/19 21:00 Labs: CBC, BMP 07/16/19 05:00 07/16/19 05:00 Rapid Response - Rapid Response Assessment: A rapid response was called on the patient around 8am because the nurse reported the patient was having seizure like activity since she came on shift around 7am that was not resolving with ativan. The rapid team arrived at the scene immediately and the patient was found to be unresponsive with a BP of 138/ 67. HR 93, and satting 100% on 3L NC. On physical exam, the patient was unresponsive to questioning and did not open eyes to sternal rub. Her right arm was noted to be twitching but she did not appear to be in a tonic-clonic seizure. 2mg of ativan were ordered in addition to 500mg Keppra and 1g of Fosphenytoin was ordered. Dr. Perez and Dr. Crespo were contacted and recommendations were appreciated. The patient was then accepted and transferred to the ICU. <Adriel Bronson - Last Filed: 07/20/19 19:04> Physical Examination Vital Signs: Labs: CBC, BMP 07/19/19 05:00 07/20/19 07:37 Critical Care Total Critical Care Time (in minutes): 40 Critical Care Statement: The care of this patient involved high complexity decision making to prevent further life threatening deterioration of the patient 's condition and/or to evaluate & treat vital organ system(s) failure or risk of failure.
[2019-07-17] MEDS ORDERED: SODIUM CHLORIDE IVPB ONE (08:45)
[2019-07-17] MEDS ORDERED: FOSPHENYTOIN SODIUM IVPB ONE (08:45)
[2019-07-17 09:53] LABS: URINE APPEARANCE Clear; URINE BILIRUBIN Negative (NEGATIVE); URINE COLOR Dark yellow; URINE GLUCOSE (UA) Negative (NEGATIVE); URINE KETONE Trace (NEGATIVE); URINE LEUK ESTERASE Negative (NEGATIVE); URINE NITRITE Positive (NEGATIVE); URINE PROTEIN 3+ (NEGATIVE); URINE UROBILINOGEN 0.2 mg/dL (0.2-1.0)
[2019-07-17 09:59] LABS: EPI CELLS 4.7 /HPF (0-5/HPF); HYALINE CASTS 21.84 /lpf (0-8); URINE BACTERIA 0.8 /hpf (NEGATIVE); URINE RBC 3.4 /hpf (0-4); URINE WBC 2.3 /hpf (0-5)
[2019-07-17 10:52] LABS: BASO % 0.5 % (0-2.0); EOS % 0.1 % (0-4.5); HEMATOCRIT 26.1 % (32.4-45.2); HEMOGLOBIN 8.9 GM/dL (10.7-15.3); LYMPH % 11.2 % (8-40); MCH 31.1 pg (25.7-33.7); MCHC 34.1 g/dl (32.0-36.0); MEAN CELL VOLUME 91.5 fl (80-96); MONO % 10.9 % (3.8-10.2); NEUT % 77.3 % (42.8-82.8); PLATELET COUNT 379 K/MM3 (134-434); RBC 2.86 M/mm3 (3.60-5.2); RDW 17.3 % (11.6-15.6); WHITE BLOOD COUNT 9.3 K/mm3 (4.0-10.0)
[2019-07-17] MEDS: levETIRAcetam 500 MG TABLET (FP) PO SCH ×2 (11:17→11:25)
[2019-07-17] MEDS ORDERED: PT OWN MED DRAWER 7, Y5N ONE ×3 (11:18→20:47)
[2019-07-17 11:25] LABS: BILIRUBIN,TOTAL 0.2 mg/dL (0.2-1); BLOOD UREA NITROGEN 12.3 mg/dL (7-18); CALCIUM 7.9 mg/dL (8.5-10.1); CREATININE 0.9 mg/dL (0.55-1.3); MAGNESIUM 1.7 mg/dL (1.8-2.4); PHOSPHOROUS 2.1 mg/dL (2.5-4.9); POTASSIUM 3.2 mmol/L (3.5-5.1); TOT PROT 4.6 g/dl (6.4-8.2)
[2019-07-17] MEDS ORDERED: FOSPHENYTOIN SODIUM 100 MG/2 ML VIAL IVPB SCH (11:45)
--- NOTE | 2019-07-17 11:51 | PN ---
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 Initial presentation to hospital was , she initally noted to have left sided face droopiness followed by generalized tonic clonic seizure, she was brought to hospital and was intubated. Patient had ct head, which was no acute findings. Patient was on keppra 500 mg bid and she as on floor and this morning she had two episode of generalized tonic clonic seizure. NEUROLOGICAL EXAMINATION Patient is sedated and withdraws to pain and no response to verbal stimuli pupils reactive,opens eye spontaneously no seizure activity was seen, corneal reflex are present Patient is sedated and detail neuro exam is not possible ct head done on july 06 was unchanged from before and there was no acute findings Assessment/Plan 89 year old female history of htn, pd, stroke with residual right hemiparesis, came with ? l Patient has breakthrough seizure, she is on keppra 500 mg bid and she was given dilantin 1 gm iv once and ativan , no seizure and she is sedated. Plan: continue keppra 500 mg iv bid - start dilantin 100 mg iv bid continue current level of care - supportive care Thanking you so much Davie Hughes MD
--- NOTE | 2019-07-17 11:55 | PN ---
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 (short form) - Note 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: 24hrs events: -patient transferred to floor, was more awake and able to eat w/ assistance -low grade fever -[employer] called for seizure activity -patient received ativan x2, fospehnytoin load and additional dose of keppra -pt transferred back to ICU given AMS and desaturation -in ICU patient minimally responsive but verbal, protecting her airway, hemodynamically stable -I spoke w/ pt's family: and Daughter and confirmed DNR, but they would want intubation if needed at this time understanding that extubation given her advanced dementia may be limited Current Medications Fosphenytoin Sodium (Cerebyx -) 100 mg IVPB Q12H [facility] Heparin Sodium (Porcine) (Heparin -) 5,000 unit SQ TID [facility] Last Admin: 07/17/19 06:47 Dose: 5,000 unit Hydralazine HCl (Apresoline Injection -) 10 mg IVPUSH Q6H PRN PRN Reason: HYPERTENSION Levetiracetam (Keppra -) 500 mg PO BID [facility] Last Admin: 07/17/19 11:25 Dose: Not Given Phenytoin Sodium (Dilantin -) 100 mg PO TID [facility] Vital Signs Period Temp Pulse Resp BP Sys/Rowland Pulse Ox Last 24 Hr 98.1 F-100.8 F 81-134 20-25 141-165/63-97 77-98 Intake & Output 07/14/19 07/15/19 07/16/19 07/17/19 23:59 23:59 23:59 23:59 Intake Total 800 260 200 Output Total 450 Balance 800 260 200 -450 Weight 47.763 kg 41.05 kg 41.867 kg 46.266 kg Exam: elderly woman in bed w/o distress, Neuro: non responisve to verbal stimulation, grimaces to noxious stimulation HEENT: LAI, no JVD CV: NSR Pulm: diminished in bases Abd: SNTND +BS CBC, BMP 07/17/19 10:38 07/17/19 10:38 A/P s/p Acute Respiratory Failure Breakthrough Seizure r/o Pneumonia Seizure Disorder +Troponins likely Demand Ischemia h/o CVA Parkinsons Dementia HTN - continue antiepileptics, added fosphenytoin per neurology - Completed ABX, will have low thershold for restarting if signs of aspiration - monitor airway, may need intubation if requiring frequent ativan bolus - O2 as needed - NPO given AMS, will advance as tolerated - aspiration precautions - DVT prophylaxis - continue discussions regarding goals of care: CHRISSY SMITHP Pulm/CCM CCT: 35m
[2019-07-17] MEDS ORDERED: PHENYTOIN NA EXTENDED 100 MG CAPSULE (FP) PO SCH (14:00)
--- NOTE | 2019-07-17 16:38 | PN ---
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, Physician - Current Medication List Current Medications: Active Medications Fosphenytoin Sodium (Cerebyx -) 100 mg IVPB BID [facility] Heparin Sodium (Porcine) (Heparin -) 5,000 unit SQ TID [facility] Last Admin: 07/17/19 14:35 Dose: 5,000 unit Hydralazine HCl (Apresoline Injection -) 10 mg IVPUSH Q6H PRN PRN Reason: HYPERTENSION Levetiracetam (Keppra Injection -) 500 mg IVPB BID [facility] - Objective Vital Signs: Vital Signs Temperature 99.5 F 07/17/19 14:00 Pulse Rate 80 07/17/19 16:00 Respiratory Rate 22 H 07/17/19 16:00 Blood Pressure 123/51 L 07/17/19 16:00 O2 Sat by Pulse Oximetry (%) 94 L 07/17/19 13:46 Labs: CBC, BMP 07/17/19 10:38 07/17/19 10:38 INR, PTT INR 0.96 (0.83-1.09) 07/06/19 21:40 Problem List - Problems (1) Seizure disorder Code(s): G40.909 - EPILEPSY, UNSP, NOT INTRACTABLE, WITHOUT STATUS EPILEPTICUS (2) Acute respiratory distress Code(s): R06.03 - ACUTE RESPIRATORY DISTRESS (3) HTN (hypertension) Code(s): I10 - ESSENTIAL (PRIMARY) HYPERTENSION (4) Parkinsons Code(s): G20 - PARKINSON'S DISEASE (5) Dementia Code(s): F03.90 - UNSPECIFIED DEMENTIA WITHOUT BEHAVIORAL DISTURBANCE
[2019-07-17] MEDS: levETIRAcetam 500 MG/5 ML INJECTION VIAL IVPB SCH (21:10)
[2019-07-17] MEDS: FOSPHENYTOIN SODIUM 100 MG/2 ML VIAL IVPB SCH (21:39)
[2019-07-18] MEDS: HEPARIN NA (PORCINE) 5,000 UNITS/ML 1ML VIAL SQ SCH ×3 (06:05→21:00)
[2019-07-18 06:57] LABS: BLOOD UREA NITROGEN 10.4 mg/dL (7-18); CALCIUM 7.9 mg/dL (8.5-10.1); CREATININE 0.6 mg/dL (0.55-1.3); MAGNESIUM 1.7 mg/dL (1.8-2.4); PHOSPHOROUS 2.2 mg/dL (2.5-4.9); POTASSIUM 3.3 mmol/L (3.5-5.1)
[2019-07-18 07:18] LABS: HEMATOCRIT 29.7 % (32.4-45.2); HEMOGLOBIN 9.8 GM/dL (10.7-15.3); MCH 30.7 pg (25.7-33.7); MCHC 33.2 g/dl (32.0-36.0); MEAN CELL VOLUME 92.7 fl (80-96); MEAN PLT VOLUME 8.9 fl (7.5-11.1); PLATELET COUNT 457 K/MM3 (134-434); RDW 17.3 % (11.6-15.6); WHITE BLOOD COUNT 8.7 K/mm3 (4.0-10.0)
--- NOTE | 2019-07-18 08:46 | PN ---
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 (short form) - Note 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: Patient seen and exam in ICU -no active seizure noted -BP And respiratory status stable Current Medications Fosphenytoin Sodium (Cerebyx -) 100 mg IVPB BID [facility] Last Admin: 07/17/19 21:39 Dose: 100 mg Heparin Sodium (Porcine) (Heparin -) 5,000 unit SQ TID [facility] Last Admin: 07/18/19 06:05 Dose: 5,000 unit Hydralazine HCl (Apresoline Injection -) 10 mg IVPUSH Q6H PRN PRN Reason: HYPERTENSION Potassium Chloride (Potassium Chloride 10 Meq Premix Ivpb -) 10 meq in 100 mls @ 100 mls/hr IVPB Q60M [facility] Stop: 07/18/19 11:44 Levetiracetam (Keppra Injection -) 500 mg IVPB BID [facility] Last Admin: 07/17/19 21:10 Dose: 500 mg Vital Signs Period Temp Pulse Resp BP Sys/Rowland Pulse Ox Last 24 Hr 98.3 F-99.8 F 74-85 19-25 123-154/47-70 94-100 Intake & Output 07/15/19 07/16/19 07/17/19 07/18/19 23:59 23:59 23:59 23:59 Intake Total 260 200 300 Output Total 950 200 Balance 260 200 -650 -200 Weight 41.05 kg 41.867 kg 46.266 kg 46.765 kg Exam: Neuro: grimaces to noxious stimulation, non verbal Pulm: CTA CV: RRR Abd: SNTND +BS Ext: WWP +2 LE, +2 UE edema CBC, BMP 07/18/19 06:05 07/18/19 06:05 A/P s/p Acute Respiratory Failure Breakthrough Seizure r/o Pneumonia Seizure Disorder +Troponins likely Demand Ischemia h/o CVA Parkinsons Dementia HTN - continue antiepileptics, KEppra and fosphenytoin per neurology - Completed ABX, will have low thershold for restarting if signs of aspiration - monitor airway, may need intubation if requiring frequent ativan bolus - O2 as needed - NPO given AMS, will advance as tolerated - added d5w 1/2 NS for hypernatermia given not taking PO - aspiration precautions - DVT prophylaxis - continue discussions regarding goals of care: DNR - cont ICU care given AMS Boerem ACNP Pulm/CCM CCT: 35m
[2019-07-18] MEDS: KCL 10 MEQ IVPB 10 MEQ/100 ML INFUS.BAG IVPB SCH ×3 (08:47→11:50)
[2019-07-18] MEDS ORDERED: PT OWN MED DRAWER 7, Y5N ONE (09:25)
[2019-07-18] MEDS: DEXTROSE 5%-0.45% SALINE 1,000 ML IV SCH (09:48)
[2019-07-18] MEDS: levETIRAcetam 500 MG/5 ML INJECTION VIAL IVPB SCH ×2 (09:50→21:52)
[2019-07-18] MEDS: FOSPHENYTOIN SODIUM 100 MG/2 ML VIAL IVPB SCH ×2 (09:50→21:52)
--- NOTE | 2019-07-18 15:37 | PN ---
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 Initial presentation to hospital was , she initally noted to have left sided face droopiness followed by generalized tonic clonic seizure, she was brought to hospital and was intubated. Patient had ct head, which was no acute findings. Patient was on keppra 500 mg bid and she as on floor and this morning she had two episode of generalized tonic clonic seizure. She was loaded with dilantin no more seizure Patient is sedated and withdraws to pain, not open her eye spontaneously pupils reactive,opens eye spontaneously no seizure activity was seen, corneal reflex are present Patient is sedated and detail neuro exam is not possible ct head done on july 06 was unchanged from before and there was no acute findings Assessment/Plan 89 year old female history of htn, pd, stroke with residual right hemiparesis, came with ? l Patient has breakthrough seizure, she is on keppra 500 mg bid and she was given dilantin 1 gm iv once and ativan , no seizure since july 17 Plan: continue keppra 500 mg iv bid - continue dilantin 100 mg iv bid continue current level of care - supportive care Thanking you so much Davie Hughes MD
[2019-07-18] MEDS ORDERED: ACETAMINOPHEN 1000 MG/100 ML VIAL (NON FORMULARY) IVPB STA (20:44)
--- NOTE | 2019-07-18 21:46 | PN ---
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, Physician - Current Medication List Current Medications: Active Medications Fosphenytoin Sodium (Cerebyx -) 100 mg IVPB BID [facility] Last Admin: 07/18/19 09:50 Dose: 100 mg Heparin Sodium (Porcine) (Heparin -) 5,000 unit SQ TID [facility] Last Admin: 07/18/19 14:50 Dose: 5,000 unit Hydralazine HCl (Apresoline Injection -) 10 mg IVPUSH Q6H PRN PRN Reason: HYPERTENSION Dextrose/Sodium Chloride (D5-1/2ns -) 1,000 mls @ 75 mls/hr IV ASDIR [facility] Last Admin: 07/18/19 09:48 Dose: 75 mls/hr Levetiracetam (Keppra Injection -) 500 mg IVPB BID [facility] Last Admin: 07/18/19 09:50 Dose: 500 mg - Objective Vital Signs: Vital Signs Temperature 100.5 F H 07/18/19 20:00 Pulse Rate 92 H 07/18/19 20:00 Respiratory Rate 21 H 07/18/19 20:45 Blood Pressure 147/77 07/18/19 20:00 O2 Sat by Pulse Oximetry (%) 100 07/18/19 20:45 Labs: CBC, BMP 07/18/19 06:05 07/18/19 06:05 INR, PTT INR 0.96 (0.83-1.09) 07/06/19 21:40 Problem List - Problems (1) Seizure disorder Code(s): G40.909 - EPILEPSY, UNSP, NOT INTRACTABLE, WITHOUT STATUS EPILEPTICUS (2) Acute respiratory distress Code(s): R06.03 - ACUTE RESPIRATORY DISTRESS (3) HTN (hypertension) Code(s): I10 - ESSENTIAL (PRIMARY) HYPERTENSION (4) Parkinsons Code(s): G20 - PARKINSON'S DISEASE (5) Dementia Code(s): F03.90 - UNSPECIFIED DEMENTIA WITHOUT BEHAVIORAL DISTURBANCE
[2019-07-19] MEDS: HEPARIN NA (PORCINE) 5,000 UNITS/ML 1ML VIAL SQ SCH ×3 (05:02→22:05)
[2019-07-19 06:37] LABS: HEMATOCRIT 26.9 % (32.4-45.2); MCHC 33.4 g/dl (32.0-36.0); MEAN PLT VOLUME 8.9 fl (7.5-11.1); PLATELET COUNT 434 K/MM3 (134-434); RDW 18.2 % (11.6-15.6); WHITE BLOOD COUNT 8.3 K/mm3 (4.0-10.0)
[2019-07-19 06:51] LABS: BLOOD UREA NITROGEN 9.2 mg/dL (7-18); CALCIUM 7.3 mg/dL (8.5-10.1); CREATININE 0.6 mg/dL (0.55-1.3); MAGNESIUM 1.7 mg/dL (1.8-2.4); PHOSPHOROUS 2.3 mg/dL (2.5-4.9); POTASSIUM 3.4 mmol/L (3.5-5.1)
[2019-07-19 06:56] LABS: ARTERIAL BLD GAS O2 SATURATION 95.5 % (95-98); ARTERIAL BLOOD GAS BASE EXCESS 4.4 meq/l (-2-2); ARTERIAL BLOOD GAS PCO2 38.6 mmHg (35-45); ARTERIAL BLOOD GAS PO2 72.9 mmHg (80-100); ARTERIAL BLOOD GAS pH 7.47 (7.35-7.45)
[2019-07-19 07:16] LABS: ALLENS TEST POSITIVE
[2019-07-19] MEDS ORDERED: PT OWN MED DRAWER 7, Y5N ONE ×2 (09:23→21:58)
--- NOTE | 2019-07-19 09:44 | PN ---
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 Initial presentation to hospital was , she initally noted to have left sided face droopiness followed by generalized tonic clonic seizure, she was brought to hospital and was intubated. Patient had ct head, which was no acute findings. Patient has not had any episode of seizure and eeg is pending. She seems to be drowsy today Patient is drowsy and withdraws to pain, not open her eye spontaneously pupils reactive,opens eye spontaneously no seizure activity was seen, corneal reflex are present Patient is sedated and detail neuro exam is not possible ct head done on july 06 was unchanged from before and there was no acute findings Assessment/Plan 89 year old female history of htn, pd, stroke with residual right hemiparesis, came with ? l Patient has breakthrough seizure, she is on keppra 500 mg bid and she was loaded with dilantin and now on maintenance dose of 100 mg po bid no seizure since july 17 Plan: continue keppra 500 mg iv bid - continue dilantin 100 mg iv bid continue current level of care - supportive care Thanking you so much Davie Hughes MD
[2019-07-19 10:30] LABS: MAGNESIUM 1.7 mg/dL (1.8-2.4); POTASSIUM 3.4 mmol/L (3.5-5.1)
[2019-07-19] MEDS: FOSPHENYTOIN SODIUM 100 MG/2 ML VIAL IVPB SCH ×2 (12:00→22:41)
[2019-07-19] MEDS: levETIRAcetam 500 MG/5 ML INJECTION VIAL IVPB SCH ×2 (12:20→22:05)
--- NOTE | 2019-07-19 12:20 | PN ---
Teaching Attending Note Name of Resident: Ruiz Martinez ATTENDING PHYSICIAN STATEMENT I saw and evaluated the patient. I reviewed the resident's note and discussed the case with the resident. I agree with the resident's findings and plan as documented. SUBJECTIVE: Patient seen and exam in ICU. Lethargic but arousable. Not able to answer questions. No seizure activity noted. Breathing non-labored. Intake & Output 07/16/19 07/17/19 07/18/19 07/19/19 23:59 23:59 23:59 23:59 Intake Total 217 557 0326 1000 Output Total 950 750 Balance 200 -461 152 0474 Weight 92 lb 4.8 oz 102 lb 103 lb 1.6 oz 99 lb 12.8 oz Last Vital Signs Temp Pulse Resp BP Pulse Ox 98.4 F 83 20 129/75 100 07/19/19 06:00 07/19/19 10:44 07/19/19 10:44 07/19/19 10:44 07/19/19 10:00 Active Medications Fosphenytoin Sodium (Cerebyx -) 100 mg IVPB BID [facility] Last Admin: 07/18/19 21:52 Dose: 100 mg Heparin Sodium (Porcine) (Heparin -) 5,000 unit SQ TID [facility] Last Admin: 07/19/19 05:02 Dose: 5,000 unit Dextrose/Sodium Chloride (D5-1/2ns -) 1,000 mls @ 75 mls/hr IV ASDIR [facility] Last Admin: 07/18/19 09:48 Dose: 75 mls/hr Levetiracetam (Keppra Injection -) 500 mg IVPB BID [facility] Last Admin: 07/19/19 12:20 Dose: 500 mg Exam: Gen: Lethargic, non verbal, breathing is non-labored Pulmonary: bibasilar rhonchi CV: S1S2 Abd: Soft, non-tender, non-distended, (+) BS Ext: (+) PP, (+) edema Neuro: grimaces to noxious stimulation, non verbal, breathing is non-labored Laboratory Results - last 24 hr 07/18/19 07/19/19 07/19/19 18:05 05:00 05:00 WBC 8.3 RBC 2.90 L Hgb 9.0 L Hct 26.9 L MCV 93.0 MCH 31.0 MCHC 33.4 RDW 18.2 H Plt Count 434 MPV 8.9 Puncture Site ABG pH ABG pCO2 at Pt Temp ABG pO2 at Pt Temp ABG HCO3 ABG O2 Sat (Measured) ABG O2 Content ABG Base Excess Carlos Test O2 Delivery Device Oxygen Flow Rate Sodium 146 H Potassium 3.4 L Chloride 111 H Carbon Dioxide 32 Anion Gap 3 L BUN 9.2 Creatinine 0.6 Est GFR (CKD-EPI)AfAm 94.99 Est GFR (CKD-EPI)NonAf 81.95 POC Glucometer Cancelled Random Glucose 107 H Calcium 7.3 L Phosphorus 2.3 L Magnesium 1.7 L 07/19/19 07/19/19 06:26 09:30 WBC RBC Hgb Hct MCV MCH MCHC RDW Plt Count MPV Puncture Site Right radial ABG pH 7.47 H ABG pCO2 at Pt Temp 38.6 ABG pO2 at Pt Temp 72.9 L ABG HCO3 27.9 H ABG O2 Sat (Measured) 95.5 ABG O2 Content 11.9 ABG Base Excess 4.4 H Carlos Test Positive O2 Delivery Device N/c Oxygen Flow Rate 2l Sodium Potassium 3.4 L Chloride Carbon Dioxide Anion Gap BUN Creatinine Est GFR (CKD-EPI)AfAm Est GFR (CKD-EPI)NonAf POC Glucometer Random Glucose Calcium Phosphorus Magnesium 1.7 L A/P s/p Acute Respiratory Failure Breakthrough Seizure r/o Pneumonia Seizure Disorder +Troponins likely Demand Ischemia h/o CVA Parkinsons Dementia HTN - continue antiepileptics, Keppra and fosphenytoin per neurology - Completed ABX, will have low threshold for restarting if signs of aspiration - O2 as needed - D/W family about GOC, (?) NGT - IVF - DVT prophylaxis - continue discussions regarding goals of care: DNR - 4W / 4S Dr Narayanan
--- NOTE | 2019-07-19 13:46 | PN ---
Physical Exam: SUBJECTIVE: Patient seen and examined at bedside this AM. Sepsis workup ordered this AM after having a temp of 100.5 yesterday. BC'S and CXR. OBJECTIVE: Vital Signs Period Temp Pulse Resp BP Sys/Rowland Pulse Ox Last 24 Hr 98.1 F-100.5 F 74-92 19-27 110-147/43-77 100-100 GENERAL: The patient is awake, in no acute distress. Pt nonresponsive at baseline. HEAD: Normal with no signs of trauma. Head tremulous. NECK: supple. LUNGS: Breath sounds equal, slightly roncherous and decreased at bases. HEART: Regular rate and rhythm, S1, S2 without murmur, rub or gallop. ABDOMEN: Soft, nontender, nondistended, no guarding, no rebound. EXTREMITIES: 2+ pulses, warm, well-perfused, no edema. NEUROLOGICAL: difficult to assess, pt responsive to eye opening command, no eye tracking present, not able to phonate. SKIN: Warm, dry, no rashes or lesions noted Laboratory Results - last 24 hr 07/18/19 07/19/19 07/19/19 18:05 05:00 05:00 WBC 8.3 RBC 2.90 L Hgb 9.0 L Hct 26.9 L MCV 93.0 MCH 31.0 MCHC 33.4 RDW 18.2 H Plt Count 434 MPV 8.9 Puncture Site ABG pH ABG pCO2 at Pt Temp ABG pO2 at Pt Temp ABG HCO3 ABG O2 Sat (Measured) ABG O2 Content ABG Base Excess Carlos Test O2 Delivery Device Oxygen Flow Rate Sodium 146 H Potassium 3.4 L Chloride 111 H Carbon Dioxide 32 Anion Gap 3 L BUN 9.2 Creatinine 0.6 Est GFR (CKD-EPI)AfAm 94.99 Est GFR (CKD-EPI)NonAf 81.95 POC Glucometer Cancelled Random Glucose 107 H Calcium 7.3 L Phosphorus 2.3 L Magnesium 1.7 L 07/19/19 07/19/19 06:26 09:30 WBC RBC Hgb Hct MCV MCH MCHC RDW Plt Count MPV Puncture Site Right radial ABG pH 7.47 H ABG pCO2 at Pt Temp 38.6 ABG pO2 at Pt Temp 72.9 L ABG HCO3 27.9 H ABG O2 Sat (Measured) 95.5 ABG O2 Content 11.9 ABG Base Excess 4.4 H Carlos Test Positive O2 Delivery Device N/c Oxygen Flow Rate 2l Sodium Potassium 3.4 L Chloride Carbon Dioxide Anion Gap BUN Creatinine Est GFR (CKD-EPI)AfAm Est GFR (CKD-EPI)NonAf POC Glucometer Random Glucose Calcium Phosphorus Magnesium 1.7 L Active Medications Generic Name Dose Route Start Last Admin Trade Name Freq PRN Reason Stop Dose Admin Fosphenytoin Sodium 100 mg 07/17/19 22:00 07/18/19 21:52 Cerebyx - IVPB 100 mg BID MATILDE Administration Heparin Sodium (Porcine) 5,000 unit 07/16/19 22:00 07/19/19 05:02 Heparin - SQ 5,000 unit TID MATILDE Administration Dextrose/Sodium Chloride 1,000 mls @ 75 mls/hr 07/18/19 09:00 07/18/19 09:48 D5-1/2ns - IV 75 mls/hr ASDIR MATILDE Administration Levetiracetam 500 mg 07/17/19 22:00 07/19/19 12:20 Keppra Injection - IVPB 500 mg BID MATILDE Administration ASSESSMENT/PLAN: This is an 89 y/o F with a PMH of dementia, PD, MDD, HTN, L cerebral CVA, seizures admitted for r/o CVA, acute respiratory failure, and status epilepticus. Pt BIBEMS, given versed on field, and intubated in ED. Patient has improved during her stay in ICU, no longer intubated. Set for transfer off unit. NEUROlogy -> status epilepticus - 07/08/[address] demonstrates no interval changes - CVA r/o - HOB elevation - Keppra 500 BID, Fosphenytoin 100 BID Cardiology -> HTN, Type II NSTEMI likely 2/2 seizure activity - cardiac monitoring - 02/2019 ECHO: normal EF, Grade I diastolic dysfx - Holding hydralazine now due to risk of increasing ICP, may start nicardipine in the event pt becomes hypertensive. RESP -> s/p intubation - breathing and saturating well on NC - rpt cxr showing no signs of new infiltrate. ID-> - off abx - aspiration precautions Gastroenterology - speech and swallow recs appreciated - NPO - will place OG tube for nourishment and PO medications. FEN - D5 1/2 NS @ 75cc/h - continue to monitor lytes DISPO - transfer to m/s CODE STATUS -DNR but family would like intubation. Spoke with and he would be open to NG tube insertion. Visit type - Emergency Visit Emergency Visit: Yes ED Registration Date: 07/06/19 Care time: The patient presented to the Emergency Department on the above date and was hospitalized for further evaluation of their emergent condition. - New Patient This patient is new to me today: Yes Date on this admission: 07/19/19 - Critical Care Critical Care patient: Yes Total Critical Care Time (in minutes): 35 Critical Care Statement: The care of this patient involved high complexity decision making to prevent further life threatening deterioration of the patient 's condition and/or to evaluate & treat vital organ system(s) failure or risk of failure. - Discharge Referral Referred to [facility] Med P.C.: Yes ATTENDING PHYSICIAN STATEMENT I saw and evaluated the patient. I reviewed the resident's note and discussed the case with the resident. I agree with the resident's findings and plan as documented. SUBJECTIVE: OBJECTIVE: ASSESSMENT AND PLAN:
--- NOTE | 2019-07-19 15:49 | PN ---
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, ACTIVITIES MANAGER - Note 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: 07/17/19 Seizure activity started with Lethargy. Pt NPO. Selected Entries 07/17/19 07/17/19 07/17/19 02:44 02:52 06:00 Breakfast Lunch Supper Temperature 99.6 F 100.8 F H 99.7 F H 07/17/19 07/17/19 07/17/19 08:00 10:00 13:04 Breakfast 0 NPO Lunch 0 NPO Supper Temperature 99.9 F H 99.8 F H 07/17/19 07/17/19 07/17/19 14:00 18:00 21:45 Breakfast Lunch Supper NPO Temperature 99.5 F 98.5 F 07/17/19 07/18/19 07/18/19 22:00 02:00 06:00 Breakfast Lunch Supper Temperature 98.3 F 98.5 F 98.8 F 07/18/19 07/18/19 07/18/19 08:23 10:00 13:09 Breakfast 0 Lunch Supper Temperature 98.9 F 99.6 F 07/18/19 07/18/19 07/18/19 18:00 20:00 22:00 Breakfast Lunch Supper 0 Temperature 99.4 F 100.5 F H 99.2 F 07/19/19 07/19/19 00:00 06:00 Breakfast Lunch Supper Temperature 98.1 F 98.4 F Laboratory Tests 07/18/19 07/19/19 06:05 05:00 WBC 8.7 8.3 CXR noted. NGT placed. Pt with frequent head movements, not visually tracking. r/o seizure presently. Reviewed with Residents.
--- NOTE | 2019-07-19 21:53 | PN ---
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, Physician - Current Medication List Current Medications: Active Medications Fosphenytoin Sodium (Cerebyx -) 100 mg IVPB BID [facility] Last Admin: 07/19/19 12:00 Dose: 100 mg Heparin Sodium (Porcine) (Heparin -) 5,000 unit SQ TID [facility] Last Admin: 07/19/19 15:29 Dose: 5,000 unit Dextrose/Sodium Chloride (D5-1/2ns -) 1,000 mls @ 75 mls/hr IV ASDIR [facility] Last Admin: 07/18/19 09:48 Dose: 75 mls/hr Levetiracetam (Keppra Injection -) 500 mg IVPB BID [facility] Last Admin: 07/19/19 12:20 Dose: 500 mg - Objective Vital Signs: Vital Signs Temperature 98.0 F 07/19/19 11:00 Pulse Rate 94 H 07/19/19 18:00 Respiratory Rate 22 H 07/19/19 18:00 Blood Pressure 92/70 07/19/19 18:00 O2 Sat by Pulse Oximetry (%) 100 07/19/19 10:00 Labs: CBC, BMP 07/19/19 05:00 07/19/19 09:30 INR, PTT INR 0.96 (0.83-1.09) 07/06/19 21:40 Problem List - Problems (1) Seizure disorder Code(s): G40.909 - EPILEPSY, UNSP, NOT INTRACTABLE, WITHOUT STATUS EPILEPTICUS (2) Acute respiratory distress Code(s): R06.03 - ACUTE RESPIRATORY DISTRESS (3) HTN (hypertension) Code(s): I10 - ESSENTIAL (PRIMARY) HYPERTENSION (4) Parkinsons Code(s): G20 - PARKINSON'S DISEASE (5) Dementia Code(s): F03.90 - UNSPECIFIED DEMENTIA WITHOUT BEHAVIORAL DISTURBANCE
[2019-07-19] MEDS: DEXTROSE 5%-0.45% SALINE 1,000 ML IV SCH (22:06)
[2019-07-19] MEDS ORDERED: AMIODARONE IN DEXTROSE,ISO-OSM 360 MG/200 ML BAG ONE (22:46)
[2019-07-19] MEDS ORDERED: ACETAMINOPHEN 1000 MG/100 ML VIAL (NON FORMULARY) IVPB ONE (22:46)
[2019-07-20] MEDS: KCL 10 MEQ IVPB 10 MEQ/100 ML INFUS.BAG IVPB SCH ×3 (00:33→03:26)
[2019-07-20] MEDS: DEXTROSE 5%-0.45% SALINE 1,000 ML IV SCH (03:27)
[2019-07-20] MEDS: HEPARIN NA (PORCINE) 5,000 UNITS/ML 1ML VIAL SQ SCH ×3 (06:10→22:39)
[2019-07-20 08:32] LABS: ALBUMIN 1.9 g/dl (3.4-5.0); BILIRUBIN,TOTAL 0.4 mg/dL (0.2-1); BLOOD UREA NITROGEN 9.6 mg/dL (7-18); CALCIUM 7.5 mg/dL (8.5-10.1); CREATININE 0.7 mg/dL (0.55-1.3); MAGNESIUM 1.7 mg/dL (1.8-2.4); PHOSPHOROUS 2.7 mg/dL (2.5-4.9); POTASSIUM 3.5 mmol/L (3.5-5.1); TOT PROT 4.6 g/dl (6.4-8.2)
--- NOTE | 2019-07-20 09:03 | PN ---
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, Physician - Current Medication List Current Medications: Active Medications Fosphenytoin Sodium (Cerebyx -) 100 mg IVPB BID [facility] Heparin Sodium (Porcine) (Heparin -) 5,000 unit SQ TID [facility] Last Admin: 07/20/19 06:10 Dose: 5,000 unit Dextrose/Sodium Chloride (D5-1/2ns -) 1,000 mls @ 75 mls/hr IV ASDIR [facility] Last Admin: 07/20/19 03:27 Dose: 75 mls/hr Levetiracetam (Keppra Injection -) 500 mg IVPB BID [facility] - Objective Vital Signs: Vital Signs Temperature 97.9 F 07/20/19 06:00 Pulse Rate 82 07/20/19 06:00 Respiratory Rate 17 07/20/19 06:00 Blood Pressure 116/80 07/20/19 06:00 O2 Sat by Pulse Oximetry (%) 99 07/20/19 00:00 Cardiovascular: Yes: S1, S2 Respiratory: Yes: Regular, CTA Bilaterally Gastrointestinal: Yes: Normal Bowel Sounds, Soft Labs: CBC, BMP 07/19/19 05:00 07/20/19 07:37 INR, PTT INR 0.96 (0.83-1.09) 07/06/19 21:40 Problem List - Problems (1) Seizure disorder Assessment/Plan: - Breakthrough Seizure - continue antiepileptics, KEppra and fosphenytoin per neurology - aspiration precautions - DVT prophylaxis - continue discussions regarding goals of care: DNR Code(s): G40.909 - EPILEPSY, UNSP, NOT INTRACTABLE, WITHOUT STATUS EPILEPTICUS (2) CVA (cerebral vascular accident) Assessment/Plan: r/o Pneumonia Seizure Disorder +Troponins likely Demand Ischemia h/o CVA Parkinsons Dementia HTN Code(s): I63.9 - CEREBRAL INFARCTION, UNSPECIFIED (3) Respiratory failure Assessment/Plan: s/p Acute Respiratory Failure - Completed ABX, will have low thershold for restarting if signs of aspiration - monitor airway, may need intubation if requiring frequent ativan bolus - O2 as needed - NPO given AMS, will advance as tolerated - on IVF given not taking PO - Swallow eval Code(s): J96.90 - RESPIRATORY FAILURE, UNSP, UNSP W HYPOXIA OR HYPERCAPNIA
[2019-07-20] MEDS ORDERED: PT OWN MED DRAWER 7, Y5N ONE (10:20)
[2019-07-20] MEDS: levETIRAcetam 500 MG/5 ML INJECTION VIAL IVPB SCH ×2 (11:29→22:39)
[2019-07-20] MEDS: FOSPHENYTOIN SODIUM 100 MG/2 ML VIAL IVPB SCH ×2 (11:35→23:41)
--- NOTE | 2019-07-20 11:46 | PN ---
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, Physician History of Present Illness: pulmonary lethargic,arousable,-resp distress. Tmax 101.3 - Current Medication List Current Medications: Active Medications Fosphenytoin Sodium (Cerebyx -) 100 mg IVPB BID [facility] Last Admin: 07/20/19 11:35 Dose: 100 mg Heparin Sodium (Porcine) (Heparin -) 5,000 unit SQ TID [facility] Last Admin: 07/20/19 06:10 Dose: 5,000 unit Dextrose/Sodium Chloride (D5-1/2ns -) 1,000 mls @ 75 mls/hr IV ASDIR [facility] Last Admin: 07/20/19 03:27 Dose: 75 mls/hr Levetiracetam (Keppra Injection -) 500 mg IVPB BID [facility] Last Admin: 07/20/19 11:29 Dose: 500 mg - Objective Vital Signs: Vital Signs Temperature 98 F 07/20/19 09:15 Pulse Rate 75 07/20/19 09:15 Respiratory Rate 18 07/20/19 09:15 Blood Pressure 121/78 07/20/19 09:15 O2 Sat by Pulse Oximetry (%) 99 07/20/19 09:15 Constitutional: Yes: Thin, Other (lethargic) Eyes: Yes: WNL HENT: Yes: WNL Neck: Yes: WNL Cardiovascular: Yes: Regular Rate and Rhythm, S1, S2 Respiratory: Yes: Rhonchi (few rhonchi), Other (poor inspiratory effort) Gastrointestinal: Yes: Normal Bowel Sounds, Soft Extremities: Yes: WNL Edema: No Labs: CBC, BMP 07/19/19 05:00 07/20/19 07:37 INR, PTT INR 0.96 (0.83-1.09) 07/06/19 21:40 Problem List - Problems (1) Acute respiratory distress Code(s): R06.03 - ACUTE RESPIRATORY DISTRESS (2) CVA (cerebral vascular accident) Code(s): I63.9 - CEREBRAL INFARCTION, UNSPECIFIED (3) Respiratory failure Code(s): J96.90 - RESPIRATORY FAILURE, UNSP, UNSP W HYPOXIA OR HYPERCAPNIA (4) Status epilepticus Code(s): G40.901 - EPILEPSY, UNSP, NOT INTRACTABLE, WITH STATUS EPILEPTICUS (5) Alzheimer's dementia Code(s): G30.9 - ALZHEIMER'S DISEASE, UNSPECIFIED; F02.80 - DEMENTIA IN OTH DISEASES CLASSD ELSWHR W/O BEHAVRL DISTURB (6) HLD (hyperlipidemia) Code(s): E78.5 - HYPERLIPIDEMIA, UNSPECIFIED (7) HTN (hypertension) Code(s): I10 - ESSENTIAL (PRIMARY) HYPERTENSION (8) Seizure disorder Code(s): G40.909 - EPILEPSY, UNSP, NOT INTRACTABLE, WITHOUT STATUS EPILEPTICUS (9) Acute respiratory failure Code(s): J96.00 - ACUTE RESPIRATORY FAILURE, UNSP W HYPOXIA OR HYPERCAPNIA Assessment/Plan A/P s/p Acute Respiratory Failure Breakthrough Seizure r/o Pneumonia Seizure Disorder +Troponins likely Demand Ischemia h/o CVA Parkinsons Dementia HTN - continue antiepileptics, Keppra and fosphenytoin per neurology - ABX as per id - O2 as needed - IVF - DVT prophylaxis DR MAC
--- NOTE | 2019-07-20 14:33 | PN ---
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, PATIENT EDUCATOR - Note 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: Selected Entries 07/19/19 07/19/19 07/19/19 00:00 06:00 11:00 Breakfast Temperature 98.1 F 98.4 F 98.0 F 07/19/19 07/20/19 07/20/19 22:00 00:00 02:00 Breakfast Temperature 101.3 F H 98.8 F 99 F 07/20/19 07/20/19 07/20/19 06:00 09:15 11:20 Breakfast NPO Temperature 97.9 F 98 F Laboratory Tests 07/19/19 05:00 WBC 8.3 Reviewed with nursing. NPO due to AMS, post ictal seizures. Too lethargic for Po trials. NGT noted. Pending NGT feedings vs PO. To follow as pt becomes more arousable for PO trials. I reassessed again at 2:45 pm. Arousable, opened mouth for 1/3 tsp applesauce with oral holding. Very delayed swallow. Continue NPO. Consider NGT feedings? What are pt's wishes regarding PEG? Seen by Palliative care on 07/09. Re-address? To reassess.
[2019-07-21] MEDS: HEPARIN NA (PORCINE) 5,000 UNITS/ML 1ML VIAL SQ SCH ×3 (05:32→22:53)
[2019-07-21] MEDS: DEXTROSE 5%-0.45% SALINE 1,000 ML IV SCH ×2 (05:36→18:45)
--- NOTE | 2019-07-21 10:43 | PN ---
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, COSTING MANAGER - Note 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: More easily arousable today. Pt kept lips sealed tight and turned her head repeatedly when attempting to assess swallowing using applesauce. NGT noted. NPO. No NGT feedings at this time. Yesterday, very delayed swallow, not yet functional. Continue NPO Consider NGT feedings? What are pt's wishes regarding PEG? Seen by Palliative care on 07/09. f/u Palliative [id number]? Reviewed with nursing. To reassess.
[2019-07-21] MEDS ORDERED: PT OWN MED DRAWER 7, Y5N ONE (10:47)
[2019-07-21] MEDS: levETIRAcetam 500 MG/5 ML INJECTION VIAL IVPB SCH ×2 (11:24→22:54)
--- NOTE | 2019-07-21 11:54 | PN ---
Physical Exam: SUBJECTIVE: Patient seen and examined. She appears lethargic but comfortable. She opens eyes and is non-verbal. OBJECTIVE: Vital Signs Period Temp Pulse Resp BP Sys/Rowland Pulse Ox Last 24 Hr 98.2 F-99.5 F 83-89 16-18 136-152/65-72 95-100 GENERAL: The patient is lethargic, arousable, in no acute distress. LUNGS: Breath sounds equal, clear to auscultation bilaterally, no wheezes, no crackles, no accessory muscle use. HEART: Regular rate and rhythm, S1, S2 without murmur, rub or gallop. ABDOMEN: Soft, nontender, nondistended, normoactive bowel sounds, no guarding, no rebound, no hepatosplenomegaly, no masses. EXTREMITIES: 2+ pulses, warm, well-perfused, 2+ edema. Active Medications Generic Name Dose Route Start Last Admin Trade Name Freq PRN Reason Stop Dose Admin Fosphenytoin Sodium 100 mg 07/20/19 10:00 07/20/19 23:41 Cerebyx - IVPB 100 mg BID MATILDE Administration Heparin Sodium (Porcine) 5,000 unit 07/20/19 06:00 07/21/19 05:32 Heparin - SQ 5,000 unit TID MATILDE Administration Dextrose/Sodium Chloride 1,000 mls @ 75 mls/hr 07/20/19 00:59 07/21/19 05:36 D5-1/2ns - IV 75 mls/hr ASDIR MATILDE Administration Levetiracetam 500 mg 07/20/19 10:00 07/21/19 11:24 Keppra Injection - IVPB 500 mg BID MATILDE Administration ASSESSMENT/PLAN: 1. Acute hypoxic respiratory failure - Resolved 2. Seizure disorder with breakthrough seizure - Continue Keppra, Cerebyx 3. Possible pneumonia - Completed ceftriaxone x 7 days 4. Demand ischemia 5. HTN 6. Parkinson disease 7. Dementia 8. History of CVA 9. Nutrition - Unable to take PO at this time - Start NGT feeds with Vital 1.2 - Family does not want PEG at this time Visit type - Emergency Visit Emergency Visit: Yes ED Registration Date: 07/06/19 Care time: The patient presented to the Emergency Department on the above date and was hospitalized for further evaluation of their emergent condition. - New Patient This patient is new to me today: Yes Date on this admission: 07/21/19 - Critical Care Critical Care patient: No - Discharge Referral Referred to [facility] Med P.C.: No
[2019-07-21] MEDS: FOSPHENYTOIN SODIUM 100 MG/2 ML VIAL IVPB SCH (14:52)
--- NOTE | 2019-07-21 14:59 | PN ---
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, Physician History of Present Illness: pulmonary lethargic no distress,afebrile - Current Medication List Current Medications: Active Medications Fosphenytoin Sodium (Cerebyx -) 100 mg IVPB BID [facility] Last Admin: 07/21/19 14:52 Dose: 100 mg Heparin Sodium (Porcine) (Heparin -) 5,000 unit SQ TID [facility] Last Admin: 07/21/19 05:32 Dose: 5,000 unit Dextrose/Sodium Chloride (D5-1/2ns -) 1,000 mls @ 75 mls/hr IV ASDIR [facility] Last Admin: 07/21/19 05:36 Dose: 75 mls/hr Levetiracetam (Keppra Injection -) 500 mg IVPB BID [facility] Last Admin: 07/21/19 11:24 Dose: 500 mg - Objective Vital Signs: Vital Signs Temperature 98.7 F 07/21/19 05:00 Pulse Rate 89 07/21/19 05:00 Respiratory Rate 18 07/21/19 05:00 Blood Pressure 149/72 07/21/19 05:00 O2 Sat by Pulse Oximetry (%) 100 07/20/19 21:00 Constitutional: Yes: Well Nourished, Other (lethargic) Eyes: Yes: WNL HENT: Yes: WNL Neck: Yes: WNL Cardiovascular: Yes: Regular Rate and Rhythm, S1, S2 Respiratory: Yes: Diminished, Other (poor inspiratory effort) Gastrointestinal: Yes: Normal Bowel Sounds, Soft Extremities: Yes: WNL Edema: No Labs: CBC, BMP 07/19/19 05:00 07/20/19 07:37 INR, PTT INR 0.96 (0.83-1.09) 07/06/19 21:40 Problem List - Problems (1) Acute respiratory distress Code(s): R06.03 - ACUTE RESPIRATORY DISTRESS (2) CVA (cerebral vascular accident) Code(s): I63.9 - CEREBRAL INFARCTION, UNSPECIFIED (3) Respiratory failure Code(s): J96.90 - RESPIRATORY FAILURE, UNSP, UNSP W HYPOXIA OR HYPERCAPNIA (4) Status epilepticus Code(s): G40.901 - EPILEPSY, UNSP, NOT INTRACTABLE, WITH STATUS EPILEPTICUS (5) Alzheimer's dementia Code(s): G30.9 - ALZHEIMER'S DISEASE, UNSPECIFIED; F02.80 - DEMENTIA IN OTH DISEASES CLASSD ELSWHR W/O BEHAVRL DISTURB (6) HLD (hyperlipidemia) Code(s): E78.5 - HYPERLIPIDEMIA, UNSPECIFIED (7) HTN (hypertension) Code(s): I10 - ESSENTIAL (PRIMARY) HYPERTENSION (8) Seizure disorder Code(s): G40.909 - EPILEPSY, UNSP, NOT INTRACTABLE, WITHOUT STATUS EPILEPTICUS (9) Acute respiratory failure Code(s): J96.00 - ACUTE RESPIRATORY FAILURE, UNSP W HYPOXIA OR HYPERCAPNIA Assessment/Plan A/P s/p Acute Respiratory Failure Breakthrough Seizure r/o Pneumonia Seizure Disorder +Troponins likely Demand Ischemia h/o CVA Parkinsons Dementia HTN - continue antiepileptics, Keppra and fosphenytoin per neurology - O2 as needed - IVF - DVT prophylaxis DR MAC
[2019-07-22] MEDS: FOSPHENYTOIN SODIUM 100 MG/2 ML VIAL IVPB SCH ×3 (00:01→22:48)
[2019-07-22] MEDS: HEPARIN NA (PORCINE) 5,000 UNITS/ML 1ML VIAL SQ SCH ×3 (05:27→22:00)
[2019-07-22 08:22] LABS: BLOOD UREA NITROGEN 9.5 mg/dL (7-18); CREATININE 0.6 mg/dL (0.55-1.3); MAGNESIUM 1.6 mg/dL (1.8-2.4); PHOSPHOROUS 2.9 mg/dL (2.5-4.9)
[2019-07-22 08:35] LABS: HEMATOCRIT 28.5 % (32.4-45.2); HEMOGLOBIN 9.5 GM/dL (10.7-15.3); MCH 30.7 pg (25.7-33.7); MCHC 33.3 g/dl (32.0-36.0); MEAN CELL VOLUME 92.4 fl (80-96); MEAN PLT VOLUME 8.5 fl (7.5-11.1); PLATELET COUNT 524 K/MM3 (134-434); RBC 3.08 M/mm3 (3.60-5.2); RDW 17.6 % (11.6-15.6); WHITE BLOOD COUNT 9.8 K/mm3 (4.0-10.0)
[2019-07-22] MEDS: levETIRAcetam 500 MG/5 ML INJECTION VIAL IVPB SCH ×2 (10:49→22:00)
[2019-07-22] MEDS ORDERED: PT OWN MED DRAWER 7, Y5N ONE ×3 (11:00→21:57)
[2019-07-22 11:10] LABS: HEMATOCRIT 27.6 % (32.4-45.2); HEMOGLOBIN 9.3 GM/dL (10.7-15.3); MCH 31.2 pg (25.7-33.7); MCHC 33.7 g/dl (32.0-36.0); MEAN CELL VOLUME 92.6 fl (80-96); MEAN PLT VOLUME 8.2 fl (7.5-11.1); PLATELET COUNT 467 K/MM3 (134-434); RBC 2.98 M/mm3 (3.60-5.2); RDW 17.5 % (11.6-15.6); WHITE BLOOD COUNT 8.8 K/mm3 (4.0-10.0)
[2019-07-22 11:40] LABS: ALBUMIN 1.7 g/dl (3.4-5.0); BILIRUBIN,TOTAL 0.2 mg/dL (0.2-1); BLOOD UREA NITROGEN 9.7 mg/dL (7-18); CALCIUM 7.9 mg/dL (8.5-10.1); CREATININE 0.6 mg/dL (0.55-1.3); TOT PROT 4.7 g/dl (6.4-8.2)
--- NOTE | 2019-07-22 12:20 | CON.ID ---
Consult - Past Medical History REGIONAL PROGRAM MANAGER: Yes: Alzheimer's, CVA, Dementia, Seizure Cardio/Vascular: Yes: HTN Pulmonary: Yes: Pneumonia Psych: Yes: Depression - Past Surgical History Past Surgical History: Yes: None - Alcohol/Substance Use Hx Alcohol Use: No - Smoking History Smoking history: Unknown if ever smoked Have you smoked in the past 12 months: No Aproximately how many cigarettes per day: 0 Home Medications - Allergies Allergies/Adverse Reactions: Allergies Allergy/AdvReac Type Severity Reaction Status Date / Time No Known Allergies Allergy Verified 07/06/19 21:45 - Home Medications Home Medications: Ambulatory Orders Carbidopa/Levodopa 25/100 [Sinemet 25/100 -] 1 each PO TID 07/05/18 Donepezil HCl [Aricept] 10 mg PO DAILY 07/05/18 Escitalopram Oxalate [Lexapro -] 10 mg PO DAILY 07/05/18 Olmesartan Medoxomil [Benicar] 20 mg PO DAILY 07/05/18 Quetiapine Fumarate [Seroquel -] 25 mg PO BID 07/05/18 levETIRAcetam [Keppra -] 500 mg PO BID 07/05/18 Acetaminophen [Tylenol .Regular Strength -] 650 mg PO Q6H PRN tablet 07/12/18 Carbidopa/Levodopa 25/100 [Sinemet 25/100 -] 1 each PO BID tablet 07/12/18 Donepezil HCl [Aricept -] 10 mg PO DAILY tablet 07/12/18 levETIRAcetam [Keppra -] 750 mg PO BID tablet 07/12/18 Hydrochlorothiazide [Hctz -] 25 mg PO DAILY #30 tablet 07/14/18 Physical Exam Vital Signs: Vital Signs Temperature 98.8 F 07/22/19 06:09 Pulse Rate 98 H 07/22/19 06:09 Respiratory Rate 20 07/22/19 06:09 Blood Pressure 127/73 07/22/19 06:09 O2 Sat by Pulse Oximetry (%) 98 07/21/19 21:00 Labs: CBC, BMP 07/22/19 10:50 07/22/19 10:50
--- NOTE | 2019-07-22 12:38 | PN ---
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 (short form) - Note 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: PULMONARY Pt nonverbal. No fevers recorded. Vital Signs Period Temp Pulse Resp BP Sys/[place] Pulse Ox Last 24 Hr 98.0 F-99.2 F 87-111 20-20 127-150/68-83 98 Gen: NAD at rest Heart: RRR Lung: scattered rhonchi Abd: soft, nontender Ext: no edema CBC, BMP 07/22/19 10:50 07/22/19 10:50 Active Medications Fosphenytoin Sodium (Cerebyx -) 100 mg IVPB BID [facility] Last Admin: 07/22/19 12:12 Dose: 100 mg Heparin Sodium (Porcine) (Heparin -) 5,000 unit SQ TID [facility] Last Admin: 07/22/19 05:27 Dose: 5,000 unit Dextrose/Sodium Chloride (D5-1/2ns -) 1,000 mls @ 50 mls/hr IV ASDIR [facility] Last Admin: 07/21/19 18:45 Dose: 50 mls/hr Levetiracetam (Keppra Injection -) 500 mg IVPB BID [facility] Last Admin: 07/22/19 10:49 Dose: 500 mg A/P s/p Acute Respiratory Failure Breakthrough Seizure r/o Pneumonia Seizure Disorder +Troponins likely Demand Ischemia h/o CVA Parkinsons Dementia HTN - continue antiepileptics - f/u cultures - PO as tolerated - aspiration precautions - DVT prophylaxis - continue discussions regarding goals of care
--- NOTE | 2019-07-22 12:58 | PN ---
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 Initial presentation to hospital was , she initally noted to have left sided face droopiness followed by generalized tonic clonic seizure, she was brought to hospital and was intubated. Patient had ct head, which was no acute findings. Patient has not had any episode of seizure and eeg is pending. Patient had episode of seizure on floor and was transferred to icu and now back to floor. She has not had any seizure since she was loaded with dilantin. Patient is drowsy and withdraws to pain, not open her eye spontaneously pupils reactive,opens eye spontaneously no seizure activity was seen, corneal reflex are present Patient is sedated and detail neuro exam is not possible ct head done on july 06 was unchanged from before and there was no acute findings Assessment/Plan 89 year old female history of htn, pd, stroke with residual right hemiparesis, came with ? l Patient has breakthrough seizure, she is on keppra 500 mg bid and she was loaded with dilantin and now on maintenance dose of 100 mg po bid no seizure since july 17 Plan: continue keppra 500 mg iv bid - continue dilantin 100 mg iv bid continue current level of care - supportive care Thanking you so much Davie Hughes MD
--- NOTE | 2019-07-22 13:55 | PN ---
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, SCIENTIFIC DIVER - Note 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: TF initiated. Palliative care noted. Limited progress. Prognosis quite guarded for for consistent PO acceptance and tolerance.
--- NOTE | 2019-07-22 14:25 | CON.CARD ---
Consult Consult Specialty:: cardiology Reason for Consultation:: tachycardia - History of Present Illness Chief Complaint: Pt lying on left side. Her is at bedside, and says she is nonverbal. History of Present Illness: The patient is an 89 year old female (. [facility]), with a past medical history of CVA (with residual weakness of the right extremities), Parkinsons disease, HTN, HLD, LV distolic dysfunction,dementia, and epilepsy, brought in today by EMS for evaluation of seizure. As per EMS, the patient developed right sided facial drooping and then had a seizure. 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 Cardio/Vascular: Yes: HTN Pulmonary: Yes: Pneumonia Reproductive: Yes: Postmenopausal ...: No Heme/Onc: Yes: Anemia Psych: Yes: Depression Musculoskeletal: Yes: Other (kyphoscoliosis) - Past Surgical History Past Surgical History: Yes: None - Alcohol/Substance Use Hx Alcohol Use: No - Smoking History Smoking history: Unknown if ever smoked Have you smoked in the past 12 months: No Aproximately how many cigarettes per day: 0 Home Medications - Allergies Allergies/Adverse Reactions: Allergies Allergy/AdvReac Type Severity Reaction Status Date / Time No Known Allergies Allergy Verified 07/06/19 21:45 - Home Medications Home Medications: Ambulatory Orders Carbidopa/Levodopa 25/100 [Sinemet 25/100 -] 1 each PO TID 07/05/18 Donepezil HCl [Aricept] 10 mg PO DAILY 07/05/18 Escitalopram Oxalate [Lexapro -] 10 mg PO DAILY 07/05/18 Olmesartan Medoxomil [Benicar] 20 mg PO DAILY 07/05/18 Quetiapine Fumarate [Seroquel -] 25 mg PO BID 07/05/18 levETIRAcetam [Keppra -] 500 mg PO BID 07/05/18 Acetaminophen [Tylenol .Regular Strength -] 650 mg PO Q6H PRN tablet 07/12/18 Carbidopa/Levodopa 25/100 [Sinemet 25/100 -] 1 each PO BID tablet 07/12/18 Donepezil HCl [Aricept -] 10 mg PO DAILY tablet 07/12/18 levETIRAcetam [Keppra -] 750 mg PO BID tablet 07/12/18 Hydrochlorothiazide [Hctz -] 25 mg PO DAILY #30 tablet 07/14/18 Review of Systems Unable to obtain ROS, reason: dementia - Risk Factors Known Risk Factors: Yes: Age, Physical Inactivity, Prior [place] /Emb Stroke, Other ( dementia; diastolic CHF; kyphoscoliosis) Vital Signs: Vital Signs Temperature 98.8 F 07/22/19 10:00 Pulse Rate 102 H 07/22/19 10:00 Respiratory Rate 20 07/22/19 10:00 Blood Pressure 132/53 L 07/22/19 10:00 O2 Sat by Pulse Oximetry (%) 95 07/22/19 09:00 Constitutional: Yes: Thin Eyes: Yes: Conjunctiva Clear HENT: Yes: Other Neck: Yes: Decreased ROM Respiratory: Yes: Diminished, Rales Gastrointestinal: Yes: Soft Renal/: No: Anuria Heart Sounds: Yes: S1, S2 Murmur: Yes: Systolic Murmur, Grade 1 Musculoskeletal: Yes: Muscle Weakness, Other (kyphoscoliosis) Extremities: Yes: Cool Edema: No Peripheral Pulses WNL: Yes Neurological: Yes: Weakness Psychiatric: Yes: Other (dementia) - Other Data Labs, Other Data: CBC, BMP 07/22/19 10:50 07/22/19 10:50 INR, PTT INR 0.96 (0.83-1.09) 07/06/19 21:40 Abnormal Lab Results 07/24/19 07/24/19 08:45 08:45 RBC 2.75 L Hgb 8.5 L Hct 25.6 L RDW 17.9 H Anion Gap 6 L Calcium 8.2 L AST 61 H ALT 10 L Alkaline Phosphatase 44 L Total Protein 4.9 L Albumin 1.9 L Imaging - Results Chest X-ray: Image Reviewed EKG: Image Reviewed Problem List - Problems (1) Diastolic CHF Assessment/Plan: On HCTZ due to rales, tachypnea. F/u BUN/Cr, electrolytes (being repleted), daily weight, Is and Os. Code(s): I50.30 - UNSPECIFIED DIASTOLIC (CONGESTIVE) HEART FAILURE (2) CVA (cerebral vascular accident) Code(s): I63.9 - CEREBRAL INFARCTION, UNSPECIFIED (3) Hypokalemia Assessment/Plan: Replete K+, and keep 4-4.5 (on HCTZ). Replete Mg2+, and keep 2-2.4 Keep PO4 2.5-4.9 Code(s): E87.6 - HYPOKALEMIA (4) Leukocytosis Code(s): D72.829 - ELEVATED WHITE BLOOD CELL COUNT, UNSPECIFIED (5) Respiratory failure Code(s): J96.90 - RESPIRATORY FAILURE, UNSP, UNSP W HYPOXIA OR HYPERCAPNIA (6) Alzheimer's dementia Code(s): G30.9 - ALZHEIMER'S DISEASE, UNSPECIFIED; F02.80 - DEMENTIA IN OTH DISEASES CLASSD ELSWHR W/O BEHAVRL DISTURB (7) HTN (hypertension) Code(s): I10 - ESSENTIAL (PRIMARY) HYPERTENSION (8) Tachycardia Assessment/Plan: multifactorial, including fever, dehydration. F/u EKG. Replete electrolytes. Code(s): R00.0 - TACHYCARDIA, UNSPECIFIED (9) Hypoalbuminemia Assessment/Plan: portends poor prognosis. Code(s): E88.09 - OTH DISORDERS OF PLASMA-PROTEIN METABOLISM, NEC (10) Parkinsons Assessment/Plan: on levocarbidopa Code(s): G20 - PARKINSON'S DISEASE (11) Kyphoscoliosis Code(s): M41.9 - SCOLIOSIS, UNSPECIFIED
[2019-07-22] MEDS: KCL 10 MEQ IVPB 10 MEQ/100 ML INFUS.BAG IVPB SCH ×3 (14:42→18:28)
[2019-07-22] MEDS ORDERED: MAGNESIUM SULF 50% (8.12 MEQ/2 ML-1 GM VIAL) IVPB ONE ×2 (14:45→23:00)
--- NOTE | 2019-07-22 15:27 | EKG ---
Test Reason : Blood Pressure : / mmHG Vent. Rate : 100 BPM Atrial Rate : 100 BPM P-R Int : 148 ms QRS Dur : 070 ms QT Int : 308 ms P-R-T Axes : 081 074 055 degrees QTc Int : 397 ms NORMAL SINUS RHYTHM NONSPECIFIC T WAVE ABNORMALITY ABNORMAL ECG WHEN COMPARED WITH ECG OF 07-JUL-2019 09:19, SINUS RHYTHM HAS REPLACED JUNCTIONAL RHYTHM VENT. RATE HAS INCREASED BY 37 BPM NONSPECIFIC T WAVE ABNORMALITY, WORSE IN INFERIOR LEADS NONSPECIFIC T WAVE ABNORMALITY NOW EVIDENT IN ANTEROLATERAL LEADS QT HAS SHORTENED Confirmed by STEPHY LINDO, ARMANDO ([id number]) on 07/22/2019 3:26:43 PM Referred By: DEWEY MYERS Confirmed By:ARMANDO KEYES MD
[2019-07-22] MEDS: DEXTROSE 5%-0.45% SALINE 1,000 ML IV SCH ×2 (21:53→22:07)
--- NOTE | 2019-07-22 22:17 | PN ---
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, Physician - Current Medication List Current Medications: Active Medications Fosphenytoin Sodium (Cerebyx -) 100 mg IVPB BID [facility] Last Admin: 07/22/19 12:12 Dose: 100 mg Heparin Sodium (Porcine) (Heparin -) 5,000 unit SQ TID [facility] Last Admin: 07/22/19 22:00 Dose: 5,000 unit Dextrose/Sodium Chloride (D5-1/2ns -) 1,000 mls @ 50 mls/hr IV ASDIR [facility] Last Admin: 07/22/19 22:07 Dose: 50 mls/hr Levetiracetam (Keppra Injection -) 500 mg IVPB BID [facility] Last Admin: 07/22/19 22:00 Dose: 500 mg - Objective Vital Signs: Vital Signs Temperature 99.8 F H 07/22/19 20:51 Pulse Rate 102 H 07/22/19 20:51 Respiratory Rate 28 H 07/22/19 20:51 Blood Pressure 145/70 07/22/19 20:51 O2 Sat by Pulse Oximetry (%) 98 07/22/19 20:51 Labs: CBC, BMP 07/22/19 10:50 07/22/19 10:50 INR, PTT INR 0.96 (0.83-1.09) 07/06/19 21:40 Problem List - Problems (1) Seizure disorder Code(s): G40.909 - EPILEPSY, UNSP, NOT INTRACTABLE, WITHOUT STATUS EPILEPTICUS (2) Acute respiratory distress Code(s): R06.03 - ACUTE RESPIRATORY DISTRESS (3) HTN (hypertension) Code(s): I10 - ESSENTIAL (PRIMARY) HYPERTENSION (4) Parkinsons Code(s): G20 - PARKINSON'S DISEASE (5) Dementia Code(s): F03.90 - UNSPECIFIED DEMENTIA WITHOUT BEHAVIORAL DISTURBANCE
[2019-07-23] MEDS: ACETAMINOPHEN 650 MG/20.3 ML ORAL SOLUTION (CUPS) NGT PRN (02:57)
[2019-07-23] MEDS ORDERED: ACETAMINOPHEN 650 MG/20.3 ML ORAL SOLUTION (CUPS) NGT ONE (03:00)
[2019-07-23] MEDS ORDERED: CARBIDOPA/LEVODOPA 25/100 TABLET (FP) NGT ONE (03:00)
[2019-07-23] MEDS ORDERED: CARBIDOPA/LEVODOPA 25/100 TABLET (FP) PO ONE (03:00)
[2019-07-23] MEDS ORDERED: LORazepam 2 MG/ML SDV VIAL IM ONE (03:30)
[2019-07-23] MEDS ORDERED: LORazepam 2 MG/ML SDV VIAL IVPUSH ONE (03:38)
[2019-07-23] MEDS: HEPARIN NA (PORCINE) 5,000 UNITS/ML 1ML VIAL SQ SCH ×3 (06:03→21:55)
[2019-07-23] MEDS ORDERED: PT OWN MED DRAWER 7, Y5N ONE ×3 (09:50→23:46)
[2019-07-23] MEDS ORDERED: FUROSEMIDE 40 MG/4 ML INJECTABLE VIAL IVPUSH ONE (10:42)
[2019-07-23 11:03] LABS: BASO % 0.6 % (0-2.0); EOS % 1.5 % (0-4.5); HEMATOCRIT 24.9 % (32.4-45.2); HEMOGLOBIN 8.2 GM/dL (10.7-15.3); LYMPH % 13.3 % (8-40); MCH 31.1 pg (25.7-33.7); MCHC 33.1 g/dl (32.0-36.0); MEAN CELL VOLUME 93.9 fl (80-96); MEAN PLT VOLUME 8.8 fl (7.5-11.1); NEUT % 71.6 % (42.8-82.8); PLATELET COUNT 436 K/MM3 (134-434); RBC 2.65 M/mm3 (3.60-5.2); RDW 18.1 % (11.6-15.6); WHITE BLOOD COUNT 8.9 K/mm3 (4.0-10.0)
[2019-07-23 11:14] LABS: ALBUMIN 1.7 g/dl (3.4-5.0); ALK PHOS 42 U/L (45-117); ANION GAP 6 MMOL/L (8-16); BILIRUBIN,TOTAL 0.2 mg/dL (0.2-1); CALCIUM 7.8 mg/dL (8.5-10.1); CHLORIDE 108 mmol/L (98-107); CO2 28 mmol/L (21-32); CREATININE 0.6 mg/dL (0.55-1.3); GLUCOSE,RANDOM 104 mg/dL (74-106); POTASSIUM 3.3 mmol/L (3.5-5.1); SGOT/AST 45 U/L (15-37); SGPT/ALT < 6 U/L (13-61); SODIUM 142 mmol/L (136-145); TOT PROT 4.4 g/dl (6.4-8.2)
[2019-07-23 12:04] LABS: BLOOD UREA NITROGEN 10.9 mg/dL (7-18); CALCIUM 7.9 mg/dL (8.5-10.1); CREATININE 0.7 mg/dL (0.55-1.3); MAGNESIUM 2.5 mg/dL (1.8-2.4); POTASSIUM 3.3 mmol/L (3.5-5.1)
[2019-07-23] MEDS: levETIRAcetam 500 MG/5 ML INJECTION VIAL IVPB SCH ×2 (12:55→21:51)
[2019-07-23] MEDS: DONEPEZIL HCL 10 MG TABLET (FP) NGT SCH (12:55)
[2019-07-23] MEDS: CARBIDOPA/LEVODOPA 25/100 TABLET (FP) NGT SCH ×2 (12:55→21:50)
[2019-07-23] MEDS: ESCITALOPRAM OXALATE 10 MG TABLET (FP) NGT SCH (12:56)
--- NOTE | 2019-07-23 14:10 | PN ---
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, Physician History of Present Illness: pulmonary sleeping ,had seizure last night rxed iv ativan,+ congestion earlier given lasix with good response - Current Medication List Current Medications: Active Medications Acetaminophen (Tylenol Oral Solution -) 650 mg NGT Q6H PRN PRN Reason: FEVER Last Admin: 07/23/19 02:57 Dose: 650 mg Carbidopa/Levodopa (Sinemet 25/100 -) 1 each NGT BID [facility] Last Admin: 07/23/19 12:55 Dose: 1 each Donepezil HCl (Aricept -) 10 mg NGT DAILY [facility] Last Admin: 07/23/19 12:55 Dose: 10 mg Escitalopram Oxalate (Lexapro -) 10 mg NGT DAILY [facility] Last Admin: 07/23/19 12:56 Dose: 10 mg Fosphenytoin Sodium (Cerebyx -) 100 mg IVPB BID [facility] Last Admin: 07/22/19 22:48 Dose: 100 mg Heparin Sodium (Porcine) (Heparin -) 5,000 unit SQ TID [facility] Last Admin: 07/23/19 13:01 Dose: 5,000 unit Hydrochlorothiazide (Hctz -) 25 mg NGT DAILY [facility] Levetiracetam (Keppra Injection -) 500 mg IVPB BID [facility] Last Admin: 07/23/19 12:55 Dose: 500 mg - Objective Vital Signs: Vital Signs Temperature 98.7 F 07/23/19 09:30 Pulse Rate 87 07/23/19 09:30 Respiratory Rate 30 H 07/23/19 09:30 Blood Pressure 109/57 L 07/23/19 09:30 O2 Sat by Pulse Oximetry (%) 94 L 07/22/19 21:00 Constitutional: Yes: Well Nourished, Other (sleeping) Eyes: Yes: WNL HENT: Yes: WNL Neck: Yes: WNL Cardiovascular: Yes: Regular Rate and Rhythm, S1, S2 Respiratory: Yes: Rhonchi (scattered ronchi) Gastrointestinal: Yes: Normal Bowel Sounds, Soft Extremities: Yes: WNL Edema: No Labs: CBC, BMP 07/23/19 06:55 07/23/19 11:19 INR, PTT INR 0.96 (0.83-1.09) 07/06/19 21:40 Problem List - Problems (1) Acute respiratory distress Code(s): R06.03 - ACUTE RESPIRATORY DISTRESS (2) CVA (cerebral vascular accident) Code(s): I63.9 - CEREBRAL INFARCTION, UNSPECIFIED (3) Respiratory failure Code(s): J96.90 - RESPIRATORY FAILURE, UNSP, UNSP W HYPOXIA OR HYPERCAPNIA (4) Status epilepticus Code(s): G40.901 - EPILEPSY, UNSP, NOT INTRACTABLE, WITH STATUS EPILEPTICUS (5) Alzheimer's dementia Code(s): G30.9 - ALZHEIMER'S DISEASE, UNSPECIFIED; F02.80 - DEMENTIA IN OTH DISEASES CLASSD ELSWHR W/O BEHAVRL DISTURB (6) HLD (hyperlipidemia) Code(s): E78.5 - HYPERLIPIDEMIA, UNSPECIFIED (7) HTN (hypertension) Code(s): I10 - ESSENTIAL (PRIMARY) HYPERTENSION (8) Seizure disorder Code(s): G40.909 - EPILEPSY, UNSP, NOT INTRACTABLE, WITHOUT STATUS EPILEPTICUS (9) Acute respiratory failure Code(s): J96.00 - ACUTE RESPIRATORY FAILURE, UNSP W HYPOXIA OR HYPERCAPNIA Assessment/Plan A/P s/p Acute Respiratory Failure Breakthrough Seizure r/o Pneumonia Seizure Disorder +Troponins likely Demand Ischemia h/o CVA Parkinsons Dementia HTN - continue antiepileptics as per neuro - O2 as needed - DVT prophylaxis - lasix as needed DR MAC
--- NOTE | 2019-07-23 14:10 | PN ---
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 Prognosis quite guarded for consistent PO acceptance and tolerance. Strict NPO. f/u Palliative care
--- NOTE | 2019-07-23 15:57 | PN ---
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 Initial presentation to hospital was , she initally noted to have left sided face droopiness followed by generalized tonic clonic seizure, she was brought to hospital and was intubated. Patient had ct head, which was no acute findings. Patient has not had any episode of seizure and eeg is pending. No more seizure. = Patient is drowsy and withdraws to pain, not open her eye spontaneously pupils reactive,opens eye spontaneously no seizure activity was seen, corneal reflex are present Patient is sedated and detail neuro exam is not possible ct head done on july 06 was unchanged from before and there was no acute findings Assessment/Plan 89 year old female history of htn, pd, stroke with residual right hemiparesis, came with ? l Patient has breakthrough seizure, she is on keppra 500 mg bid and she was loaded with dilantin and now on maintenance dose of 100 mg po bid Plan: continue keppra 500 mg iv bid - continue dilantin 100 mg iv bid continue current level of care - supportive care Thanking you so much Davie Hughes MD
[2019-07-23] MEDS: HYDROCHLOROTHIAZIDE 25 MG TABLET (FP) NGT SCH (16:02)
[2019-07-23] MEDS: FOSPHENYTOIN SODIUM 100 MG/2 ML VIAL IVPB SCH ×2 (16:02→21:55)
[2019-07-23] MEDS: KCL 10 MEQ IVPB 10 MEQ/100 ML INFUS.BAG IVPB SCH ×3 (19:15→23:13)
--- NOTE | 2019-07-23 22:54 | PN ---
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, Physician - Current Medication List Current Medications: Active Medications Acetaminophen (Tylenol Oral Solution -) 650 mg NGT Q6H PRN PRN Reason: FEVER Last Admin: 07/23/19 02:57 Dose: 650 mg Carbidopa/Levodopa (Sinemet 25/100 -) 1 each NGT BID [facility] Last Admin: 07/23/19 21:50 Dose: 1 each Donepezil HCl (Aricept -) 10 mg NGT DAILY [facility] Last Admin: 07/23/19 12:55 Dose: 10 mg Escitalopram Oxalate (Lexapro -) 10 mg NGT DAILY [facility] Last Admin: 07/23/19 12:56 Dose: 10 mg Fosphenytoin Sodium (Cerebyx -) 100 mg IVPB BID [facility] Last Admin: 07/23/19 21:55 Dose: 100 mg Heparin Sodium (Porcine) (Heparin -) 5,000 unit SQ TID [facility] Last Admin: 07/23/19 21:55 Dose: 5,000 unit Hydrochlorothiazide (Hctz -) 25 mg NGT DAILY [facility] Last Admin: 07/23/19 16:02 Dose: 25 mg Levetiracetam (Keppra Injection -) 500 mg IVPB BID [facility] Last Admin: 07/23/19 21:51 Dose: 500 mg - Objective Vital Signs: Vital Signs Temperature 98.2 F 07/23/19 20:00 Pulse Rate 87 07/23/19 20:00 Respiratory Rate 20 07/23/19 20:00 Blood Pressure 141/65 07/23/19 20:00 O2 Sat by Pulse Oximetry (%) 98 07/23/19 10:00 Labs: CBC, BMP 07/23/19 06:55 07/23/19 11:19 INR, PTT INR 0.96 (0.83-1.09) 07/06/19 21:40 Problem List - Problems (1) Seizure disorder Code(s): G40.909 - EPILEPSY, UNSP, NOT INTRACTABLE, WITHOUT STATUS EPILEPTICUS (2) Acute respiratory distress Code(s): R06.03 - ACUTE RESPIRATORY DISTRESS (3) HTN (hypertension) Code(s): I10 - ESSENTIAL (PRIMARY) HYPERTENSION (4) Parkinsons Code(s): G20 - PARKINSON'S DISEASE (5) Dementia Code(s): F03.90 - UNSPECIFIED DEMENTIA WITHOUT BEHAVIORAL DISTURBANCE
[2019-07-24] MEDS ORDERED: FUROSEMIDE 40 MG/4 ML INJECTABLE VIAL IVPUSH STA (01:25)
[2019-07-24] MEDS: HEPARIN NA (PORCINE) 5,000 UNITS/ML 1ML VIAL SQ SCH ×3 (05:30→21:45)
[2019-07-24 09:35] LABS: BASO % 0.5 % (0-2.0); EOS % 1.3 % (0-4.5); HEMATOCRIT 25.6 % (32.4-45.2); HEMOGLOBIN 8.5 GM/dL (10.7-15.3); LYMPH % 12.5 % (8-40); MCH 30.8 pg (25.7-33.7); MEAN CELL VOLUME 93.2 fl (80-96); MEAN PLT VOLUME 9.1 fl (7.5-11.1); MONO % 8.7 % (3.8-10.2); PLATELET COUNT 400 K/MM3 (134-434); RBC 2.75 M/mm3 (3.60-5.2); RDW 17.9 % (11.6-15.6); WHITE BLOOD COUNT 9.4 K/mm3 (4.0-10.0)
[2019-07-24 09:57] LABS: ALBUMIN 1.9 g/dl (3.4-5.0); BILIRUBIN,TOTAL 0.3 mg/dL (0.2-1); BLOOD UREA NITROGEN 10.4 mg/dL (7-18); CALCIUM 8.2 mg/dL (8.5-10.1); CREATININE 0.6 mg/dL (0.55-1.3); POTASSIUM 3.6 mmol/L (3.5-5.1); TOT PROT 4.9 g/dl (6.4-8.2)
[2019-07-24] MEDS ORDERED: PT OWN MED DRAWER 7, Y5N ONE ×3 (10:41→21:43)
[2019-07-24] MEDS: HYDROCHLOROTHIAZIDE 25 MG TABLET (FP) NGT SCH (10:47)
[2019-07-24] MEDS: CARBIDOPA/LEVODOPA 25/100 TABLET (FP) NGT SCH ×2 (10:47→21:45)
[2019-07-24] MEDS: DONEPEZIL HCL 10 MG TABLET (FP) NGT SCH (10:47)
[2019-07-24] MEDS: levETIRAcetam 500 MG TABLET (FP) PO SCH ×2 (10:47→21:45)
[2019-07-24] MEDS: ESCITALOPRAM OXALATE 10 MG TABLET (FP) NGT SCH (10:47)
--- NOTE | 2019-07-24 12:57 | PN ---
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 (short form) - Note 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: Mildly tachypneic at rest. NAD on 2 L NC O2. No acute events overnight. Intake & Output 07/21/19 07/22/19 07/23/19 07/24/19 23:59 23:59 23:59 23:59 Intake Total 1130 1330 2164 764 Balance 1130 1330 2164 764 Weight 112 lb 6.4 oz Last Vital Signs Temp Pulse Resp BP Pulse Ox 98.9 F 95 H 22 H 139/76 99 07/24/19 06:00 07/24/19 06:00 07/24/19 06:00 07/24/19 06:00 07/23/19 22:00 Active Medications Acetaminophen (Tylenol Oral Solution -) 650 mg NGT Q6H PRN PRN Reason: FEVER Last Admin: 07/23/19 02:57 Dose: 650 mg Carbidopa/Levodopa (Sinemet 25/100 -) 1 each NGT BID [facility] Last Admin: 07/24/19 10:47 Dose: 1 each Donepezil HCl (Aricept -) 10 mg NGT DAILY [facility] Last Admin: 07/24/19 10:47 Dose: 10 mg Escitalopram Oxalate (Lexapro -) 10 mg NGT DAILY [facility] Last Admin: 07/24/19 10:47 Dose: 10 mg Fosphenytoin Sodium (Cerebyx -) 100 mg IVPB BID [facility] Last Admin: 07/23/19 21:55 Dose: 100 mg Heparin Sodium (Porcine) (Heparin -) 5,000 unit SQ TID [facility] Last Admin: 07/24/19 05:30 Dose: 5,000 unit Hydrochlorothiazide (Hctz -) 25 mg NGT DAILY [facility] Last Admin: 07/24/19 10:47 Dose: 25 mg Levetiracetam (Keppra -) 500 mg PO BID [facility] Last Admin: 07/24/19 10:47 Dose: 500 mg Constitutional: Yes: NAD Eyes: Yes: WNL HENT: Yes: WNL Neck: Yes: WNL Cardiovascular: Yes: Regular Rate and Rhythm, S1, S2 Respiratory: Yes: scattered ronchi Gastrointestinal: Yes: Normal Bowel Sounds, Soft Extremities: Yes: WNL Edema: No Labs: Laboratory Results - last 24 hr 07/24/19 07/24/19 08:45 08:45 WBC 9.4 RBC 2.75 L Hgb 8.5 L Hct 25.6 L MCV 93.2 MCH 30.8 MCHC 33.0 RDW 17.9 H Plt Count 400 MPV 9.1 Absolute Neuts (auto) 7.3 Neutrophils % 77.0 Lymphocytes % 12.5 Monocytes % 8.7 Eosinophils % 1.3 Basophils % 0.5 Nucleated RBC % 0 Sodium 139 Potassium 3.6 Chloride 104 Carbon Dioxide 29 Anion Gap 6 L BUN 10.4 Creatinine 0.6 Est GFR (CKD-EPI)AfAm 94.99 Est GFR (CKD-EPI)NonAf 81.95 Random Glucose 84 Calcium 8.2 L Total Bilirubin 0.3 AST 61 H ALT 10 L Alkaline Phosphatase 44 L Total Protein 4.9 L Albumin 1.9 L Problem List - Problems (1) Acute respiratory distress Code(s): R06.03 - ACUTE RESPIRATORY DISTRESS (2) CVA (cerebral vascular accident) Code(s): I63.9 - CEREBRAL INFARCTION, UNSPECIFIED (3) Respiratory failure Code(s): J96.90 - RESPIRATORY FAILURE, UNSP, UNSP W HYPOXIA OR HYPERCAPNIA (4) Status epilepticus Code(s): G40.901 - EPILEPSY, UNSP, NOT INTRACTABLE, WITH STATUS EPILEPTICUS (5) Alzheimer's dementia Code(s): G30.9 - ALZHEIMER'S DISEASE, UNSPECIFIED; F02.80 - DEMENTIA IN OTH DISEASES CLASSD ELSWHR W/O BEHAVRL DISTURB (6) HLD (hyperlipidemia) Code(s): E78.5 - HYPERLIPIDEMIA, UNSPECIFIED (7) HTN (hypertension) Code(s): I10 - ESSENTIAL (PRIMARY) HYPERTENSION (8) Seizure disorder Code(s): G40.909 - EPILEPSY, UNSP, NOT INTRACTABLE, WITHOUT STATUS EPILEPTICUS (9) Acute respiratory failure Code(s): J96.00 - ACUTE RESPIRATORY FAILURE, UNSP W HYPOXIA OR HYPERCAPNIA Assessment/Plan S/P Acute Respiratory Failure Breakthrough Seizure Pneumonia Seizure Disorder +Troponins likely Demand Ischemia h/o CVA Parkinsons Dementia HTN - continue antiepileptics as per neuro - O2 as needed - DVT prophylaxis - lasix as needed Dr Narayanan
[2019-07-24] MEDS: FOSPHENYTOIN SODIUM 100 MG/2 ML VIAL IVPB SCH ×2 (13:23→22:50)
--- NOTE | 2019-07-24 23:05 | PN ---
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, Physician - Current Medication List Current Medications: Active Medications Acetaminophen (Tylenol Oral Solution -) 650 mg NGT Q6H PRN PRN Reason: FEVER Last Admin: 07/23/19 02:57 Dose: 650 mg Carbidopa/Levodopa (Sinemet 25/100 -) 1 each NGT BID [facility] Last Admin: 07/24/19 21:45 Dose: 1 each Donepezil HCl (Aricept -) 10 mg NGT DAILY [facility] Last Admin: 07/24/19 10:47 Dose: 10 mg Escitalopram Oxalate (Lexapro -) 10 mg NGT DAILY [facility] Last Admin: 07/24/19 10:47 Dose: 10 mg Fosphenytoin Sodium (Cerebyx -) 100 mg IVPB BID [facility] Last Admin: 07/24/19 22:50 Dose: 100 mg Heparin Sodium (Porcine) (Heparin -) 5,000 unit SQ TID [facility] Last Admin: 07/24/19 21:45 Dose: 5,000 unit Hydrochlorothiazide (Hctz -) 25 mg NGT DAILY [facility] Last Admin: 07/24/19 10:47 Dose: 25 mg Levetiracetam (Keppra -) 500 mg PO BID [facility] Last Admin: 07/24/19 21:45 Dose: 500 mg - Objective Vital Signs: Vital Signs Temperature 98.3 F 07/24/19 23:03 Pulse Rate 82 07/24/19 23:03 Respiratory Rate 22 H 07/24/19 23:03 Blood Pressure 143/76 07/24/19 23:03 O2 Sat by Pulse Oximetry (%) 99 07/23/19 22:00 Labs: CBC, BMP 07/24/19 08:45 07/24/19 08:45 INR, PTT INR 0.96 (0.83-1.09) 07/06/19 21:40 Problem List - Problems (1) Seizure disorder Code(s): G40.909 - EPILEPSY, UNSP, NOT INTRACTABLE, WITHOUT STATUS EPILEPTICUS (2) Acute respiratory distress Code(s): R06.03 - ACUTE RESPIRATORY DISTRESS (3) HTN (hypertension) Code(s): I10 - ESSENTIAL (PRIMARY) HYPERTENSION (4) Parkinsons Code(s): G20 - PARKINSON'S DISEASE (5) Dementia Code(s): F03.90 - UNSPECIFIED DEMENTIA WITHOUT BEHAVIORAL DISTURBANCE
--- NOTE | 2019-07-24 23:26 | PN ---
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, Physician Chief Complaint: Pt nonberbal; tachypneic History of Present Illness: The patient is an 89 year old female (. 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 As per EMS, the patient developed right sided facial drooping and then had a seizure. - Current Medication List Current Medications: Active Medications Acetaminophen (Tylenol Oral Solution -) 650 mg NGT Q6H PRN PRN Reason: FEVER Last Admin: 07/23/19 02:57 Dose: 650 mg Carbidopa/Levodopa (Sinemet 25/100 -) 1 each NGT BID [facility] Last Admin: 07/24/19 21:45 Dose: 1 each Donepezil HCl (Aricept -) 10 mg NGT DAILY [facility] Last Admin: 07/24/19 10:47 Dose: 10 mg Escitalopram Oxalate (Lexapro -) 10 mg NGT DAILY [facility] Last Admin: 07/24/19 10:47 Dose: 10 mg Fosphenytoin Sodium (Cerebyx -) 100 mg IVPB BID [facility] Last Admin: 07/24/19 22:50 Dose: 100 mg Heparin Sodium (Porcine) (Heparin -) 5,000 unit SQ TID [facility] Last Admin: 07/24/19 21:45 Dose: 5,000 unit Hydrochlorothiazide (Hctz -) 25 mg NGT DAILY [facility] Last Admin: 07/24/19 10:47 Dose: 25 mg Levetiracetam (Keppra -) 500 mg PO BID [facility] Last Admin: 07/24/19 21:45 Dose: 500 mg - Objective Vital Signs: Vital Signs Temperature 98.3 F 07/24/19 23:03 Pulse Rate 82 07/24/19 23:03 Respiratory Rate 22 H 07/24/19 23:03 Blood Pressure 143/76 07/24/19 23:03 O2 Sat by Pulse Oximetry (%) 99 07/23/19 22:00 Eyes: Yes: WNL HENT: Yes: Other Neck: Yes: Decreased ROM Cardiovascular: Yes: S1, S2 Respiratory: Yes: Diminished Gastrointestinal: Yes: Soft ...Rectal Exam: Yes: Deferred Genitourinary: No: Anuria Breast(s): Yes: WNL Musculoskeletal: Yes: Muscle Weakness Extremities: Yes: Cool Edema: No Peripheral Pulses WNL: Yes Integumentary: Yes: WNL Psychiatric: Yes: Other (dementia) Labs: CBC, BMP 07/24/19 08:45 07/24/19 08:45 INR, PTT INR 0.96 (0.83-1.09) 07/06/19 21:40 Problem List - Problems (1) Diastolic CHF Assessment/Plan: On HCTZ due to rales, tachypnea; can increase dose for 24-48 hours. F/u BUN/Cr, electrolytes (being repleted), daily weight, Is and Os. Code(s): I50.30 - UNSPECIFIED DIASTOLIC (CONGESTIVE) HEART FAILURE (2) CVA (cerebral vascular accident) Code(s): I63.9 - CEREBRAL INFARCTION, UNSPECIFIED (3) Hypokalemia Assessment/Plan: Replete K+, and keep 4-4.5 (on HCTZ). Replete Mg2+, and keep 2-2.4 Keep PO4 2.5-4.9 Code(s): E87.6 - HYPOKALEMIA (4) Leukocytosis Code(s): D72.829 - ELEVATED WHITE BLOOD CELL COUNT, UNSPECIFIED (5) Respiratory failure Code(s): J96.90 - RESPIRATORY FAILURE, UNSP, UNSP W HYPOXIA OR HYPERCAPNIA (6) Alzheimer's dementia Code(s): G30.9 - ALZHEIMER'S DISEASE, UNSPECIFIED; F02.80 - DEMENTIA IN OTH DISEASES CLASSD ELSWHR W/O BEHAVRL DISTURB (7) HTN (hypertension) Code(s): I10 - ESSENTIAL (PRIMARY) HYPERTENSION (8) Tachycardia Assessment/Plan: multifactorial, including fever, dehydration. EKG: NSR: nonspecific T wave changes. Replete electrolytes. Code(s): R00.0 - TACHYCARDIA, UNSPECIFIED (9) Hypoalbuminemia Assessment/Plan: portends poor prognosis. Code(s): E88.09 - OTH DISORDERS OF PLASMA-PROTEIN METABOLISM, NEC (10) Parkinsons Assessment/Plan: on levocarbidopa Code(s): G20 - PARKINSON'S DISEASE (11) Kyphoscoliosis Code(s): M41.9 - SCOLIOSIS, UNSPECIFIED
[2019-07-25] MEDS: HEPARIN NA (PORCINE) 5,000 UNITS/ML 1ML VIAL SQ SCH ×3 (05:59→21:42)
[2019-07-25] MEDS: CARBIDOPA/LEVODOPA 25/100 TABLET (FP) NGT SCH ×2 (10:55→21:42)
[2019-07-25] MEDS: DONEPEZIL HCL 10 MG TABLET (FP) NGT SCH (10:55)
[2019-07-25] MEDS: HYDROCHLOROTHIAZIDE 25 MG TABLET (FP) NGT SCH (10:55)
[2019-07-25] MEDS: ESCITALOPRAM OXALATE 10 MG TABLET (FP) NGT SCH (10:55)
[2019-07-25] MEDS: levETIRAcetam 500 MG TABLET (FP) PO SCH ×2 (10:55→21:42)
[2019-07-25] MEDS: FOSPHENYTOIN SODIUM 100 MG/2 ML VIAL IVPB SCH ×3 (11:02→21:42)
--- NOTE | 2019-07-25 12:55 | PN ---
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 (short form) - Note 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: Lethargic. NAD on 2 L NC O2. No acute events overnight. Intake & Output 07/22/19 07/23/19 07/24/19 07/25/19 23:59 23:59 23:59 23:59 Intake Total 1330 2164 964 480 Output Total 2 Balance 1330 2164 962 480 Weight 101 lb 2 oz Last Vital Signs Temp Pulse Resp BP Pulse Ox 99.3 F 91 H 21 H 144/69 99 07/25/19 11:00 07/25/19 11:00 07/25/19 11:00 07/25/19 11:00 07/23/19 22:00 Active Medications Acetaminophen (Tylenol Oral Solution -) 650 mg NGT Q6H PRN PRN Reason: FEVER Last Admin: 07/23/19 02:57 Dose: 650 mg Carbidopa/Levodopa (Sinemet 25/100 -) 1 each NGT BID [facility] Last Admin: 07/25/19 10:55 Dose: 1 each Donepezil HCl (Aricept -) 10 mg NGT DAILY [facility] Last Admin: 07/25/19 10:55 Dose: 10 mg Escitalopram Oxalate (Lexapro -) 10 mg NGT DAILY [facility] Last Admin: 07/25/19 10:55 Dose: 10 mg Fosphenytoin Sodium (Cerebyx -) 100 mg IVPB BID [facility] Last Admin: 07/25/19 11:36 Dose: 100 mg Heparin Sodium (Porcine) (Heparin -) 5,000 unit SQ TID [facility] Last Admin: 07/25/19 05:59 Dose: 5,000 unit Hydrochlorothiazide (Hctz -) 25 mg NGT DAILY [facility] Last Admin: 07/25/19 10:55 Dose: 25 mg Levetiracetam (Keppra -) 500 mg PO BID [facility] Last Admin: 07/25/19 10:55 Dose: 500 mg Constitutional: Yes: Lethargic, NAD Eyes: Yes: WNL HENT: Yes: WNL Neck: Yes: WNL Cardiovascular: Yes: Regular Rate and Rhythm, S1, S2 Respiratory: Yes: scattered ronchi Gastrointestinal: Yes: Normal Bowel Sounds, Soft Extremities: Yes: WNL Edema: No Labs: Problem List - Problems (1) Acute respiratory distress Code(s): R06.03 - ACUTE RESPIRATORY DISTRESS (2) CVA (cerebral vascular accident) Code(s): I63.9 - CEREBRAL INFARCTION, UNSPECIFIED (3) Respiratory failure Code(s): J96.90 - RESPIRATORY FAILURE, UNSP, UNSP W HYPOXIA OR HYPERCAPNIA (4) Status epilepticus Code(s): G40.901 - EPILEPSY, UNSP, NOT INTRACTABLE, WITH STATUS EPILEPTICUS (5) Alzheimer's dementia Code(s): G30.9 - ALZHEIMER'S DISEASE, UNSPECIFIED; F02.80 - DEMENTIA IN OTH DISEASES CLASSD ELSWHR W/O BEHAVRL DISTURB (6) HLD (hyperlipidemia) Code(s): E78.5 - HYPERLIPIDEMIA, UNSPECIFIED (7) HTN (hypertension) Code(s): I10 - ESSENTIAL (PRIMARY) HYPERTENSION (8) Seizure disorder Code(s): G40.909 - EPILEPSY, UNSP, NOT INTRACTABLE, WITHOUT STATUS EPILEPTICUS (9) Acute respiratory failure Code(s): J96.00 - ACUTE RESPIRATORY FAILURE, UNSP W HYPOXIA OR HYPERCAPNIA Assessment/Plan S/P Acute Respiratory Failure Breakthrough Seizure Pneumonia Seizure Disorder +Troponins likely Demand Ischemia h/o CVA Parkinsons Dementia HTN - continue antiepileptics as per neuro - O2 as needed - DVT prophylaxis - lasix as needed Dr Narayanan
[2019-07-25] MEDS: ACETAMINOPHEN 650 MG/20.3 ML ORAL SOLUTION (CUPS) NGT PRN (18:45)
--- NOTE | 2019-07-25 23:16 | PN ---
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, Physician - Current Medication List Current Medications: Active Medications Acetaminophen (Tylenol Oral Solution -) 650 mg NGT Q6H PRN PRN Reason: FEVER Last Admin: 07/25/19 18:45 Dose: 650 mg Carbidopa/Levodopa (Sinemet 25/100 -) 1 each NGT BID [facility] Last Admin: 07/25/19 21:42 Dose: 1 each Donepezil HCl (Aricept -) 10 mg NGT DAILY [facility] Last Admin: 07/25/19 10:55 Dose: 10 mg Escitalopram Oxalate (Lexapro -) 10 mg NGT DAILY [facility] Last Admin: 07/25/19 10:55 Dose: 10 mg Fosphenytoin Sodium (Cerebyx -) 100 mg IVPB BID [facility] Last Admin: 07/25/19 21:42 Dose: 100 mg Heparin Sodium (Porcine) (Heparin -) 5,000 unit SQ TID [facility] Last Admin: 07/25/19 21:42 Dose: 5,000 unit Hydrochlorothiazide (Hctz -) 25 mg NGT DAILY [facility] Last Admin: 07/25/19 10:55 Dose: 25 mg Levetiracetam (Keppra -) 500 mg PO BID [facility] Last Admin: 07/25/19 21:42 Dose: 500 mg - Objective Vital Signs: Vital Signs Temperature 98.9 F 07/25/19 22:00 Pulse Rate 88 07/25/19 22:00 Respiratory Rate 20 07/25/19 22:00 Blood Pressure 136/78 07/25/19 22:00 O2 Sat by Pulse Oximetry (%) 100 07/25/19 21:00 Labs: CBC, BMP 07/24/19 08:45 07/24/19 08:45 INR, PTT INR 0.96 (0.83-1.09) 07/06/19 21:40 Problem List - Problems (1) Seizure disorder Code(s): G40.909 - EPILEPSY, UNSP, NOT INTRACTABLE, WITHOUT STATUS EPILEPTICUS (2) Acute respiratory distress Code(s): R06.03 - ACUTE RESPIRATORY DISTRESS (3) HTN (hypertension) Code(s): I10 - ESSENTIAL (PRIMARY) HYPERTENSION (4) Parkinsons Code(s): G20 - PARKINSON'S DISEASE (5) Dementia Code(s): F03.90 - UNSPECIFIED DEMENTIA WITHOUT BEHAVIORAL DISTURBANCE
[2019-07-26] MEDS: HEPARIN NA (PORCINE) 5,000 UNITS/ML 1ML VIAL SQ SCH ×3 (06:12→21:47)
--- NOTE | 2019-07-26 07:45 | PN ---
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 Initial presentation to hospital was , she initally noted to have left sided face droopiness followed by generalized tonic clonic seizure, she was brought to hospital and was intubated. Patient had ct head, which was no acute findings. Patient has not had any episode of seizure and eeg is pending. No more seizure. - Current Medication List Current Medications: Active Medications Acetaminophen (Tylenol Oral Solution -) 650 mg NGT Q6H PRN PRN Reason: FEVER Last Admin: 07/25/19 18:45 Dose: 650 mg Carbidopa/Levodopa (Sinemet 25/100 -) 1 each NGT BID [facility] Last Admin: 07/25/19 21:42 Dose: 1 each Donepezil HCl (Aricept -) 10 mg NGT DAILY [facility] Last Admin: 07/25/19 10:55 Dose: 10 mg Escitalopram Oxalate (Lexapro -) 10 mg NGT DAILY [facility] Last Admin: 07/25/19 10:55 Dose: 10 mg Fosphenytoin Sodium (Cerebyx -) 100 mg IVPB BID [facility] Last Admin: 07/25/19 21:42 Dose: 100 mg Heparin Sodium (Porcine) (Heparin -) 5,000 unit SQ TID [facility] Last Admin: 07/26/19 06:12 Dose: 5,000 unit Hydrochlorothiazide (Hctz -) 25 mg NGT DAILY [facility] Last Admin: 07/25/19 10:55 Dose: 25 mg Levetiracetam (Keppra -) 500 mg PO BID [facility] Last Admin: 07/25/19 21:42 Dose: 500 mg - Objective Vital Signs: Vital Signs Temperature 99.2 F 07/26/19 05:30 Pulse Rate 96 H 07/26/19 05:30 Respiratory Rate 20 07/25/19 22:00 Blood Pressure 157/76 07/26/19 05:30 O2 Sat by Pulse Oximetry (%) 100 07/25/19 21:00 Labs: CBC, BMP 07/24/19 08:45 07/24/19 08:45 INR, PTT INR 0.96 (0.83-1.09) 07/06/19 21:40 Assessment/Plan S/P Acute Respiratory Failure Breakthrough Seizure Pneumonia Seizure Disorder +Troponins likely Demand Ischemia h/o CVA Parkinsons Dementia HTN
[2019-07-26] MEDS ORDERED: LORazepam 2 MG/ML SDV VIAL ONE (09:34)
--- NOTE | 2019-07-26 09:37 | PN ---
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 (short form) - Note 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: asked to see for positive urine culture chart reviewed Vital Signs Period Temp Pulse Resp BP Sys/Rowland Pulse Ox Last 24 Hr 98.7 F-100.2 F 88-100 20-22 128-160/68-81 100 +rhymic movements of lue not responsive to voice cor-rrr lungs bilateral rhonchi abd soft ext contracted CBC, BMP 07/24/19 08:45 07/24/19 08:45 Microbiology 07/22/19 12:30 Urine - Urine - Catheterized Urine Culture - Final Vr Ec Faecium 07/19/19 09:30 Blood - Peripheral Venous Blood Culture - Final NO GROWTH AFTER 5 DAYS INCUBATION 07/19/19 09:40 Blood - Peripheral Venous Blood Culture - Final NO GROWTH AFTER 5 DAYS INCUBATION 07/17/19 06:45 Urine - Urine Torrez Urine Culture - Final NO GROWTH OBTAINED 07/06/19 11:57 Blood - Peripheral Venous Blood Culture - Final NO GROWTH AFTER 5 DAYS INCUBATION 07/06/19 21:42 Blood - Peripheral Venous Blood Culture - Final NO GROWTH AFTER 5 DAYS INCUBATION 07/08/19 17:45 Urine For Antigen Detection Legionella Antigen - Final 07/08/19 17:45 Urine For Antigen Detection Streptococcus pneumoniae Antigen (M - Final 07/07/19 11:00 Sputum - Endotrachea Suction/Ventilator Gram Stain - Final 07/07/19 11:00 Sputum - Endotrachea Suction/Ventilator Sputum Culture - Final NORMAL RESPIRATORY JULIO 07/06/19 21:40 Urine - Urine Torrez Urine Culture - Final NO GROWTH OBTAINED Current Medications Acetaminophen (Tylenol Oral Solution -) 650 mg NGT Q6H PRN PRN Reason: FEVER Last Admin: 07/25/19 18:45 Dose: 650 mg Carbidopa/Levodopa (Sinemet 25/100 -) 1 each NGT BID [facility] Last Admin: 07/25/19 21:42 Dose: 1 each Donepezil HCl (Aricept -) 10 mg NGT DAILY [facility] Last Admin: 07/25/19 10:55 Dose: 10 mg Escitalopram Oxalate (Lexapro -) 10 mg NGT DAILY [facility] Last Admin: 07/25/19 10:55 Dose: 10 mg Fosphenytoin Sodium (Cerebyx -) 100 mg IVPB BID [facility] Last Admin: 07/25/19 21:42 Dose: 100 mg Heparin Sodium (Porcine) (Heparin -) 5,000 unit SQ TID [facility] Last Admin: 07/26/19 06:12 Dose: 5,000 unit Hydrochlorothiazide (Hctz -) 25 mg NGT DAILY [facility] Last Admin: 07/25/19 10:55 Dose: 25 mg Levetiracetam (Keppra -) 500 mg PO BID [facility] Last Admin: 07/25/19 21:42 Dose: 500 mg a/p ?active seizure- rapid response called history of seizure s/p respiratory failure history of PD UA is negative 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
[2019-07-26] MEDS ORDERED: levETIRAcetam 500 MG/5 ML INJECTION VIAL IVPB ONE ×2 (09:46→09:54)
[2019-07-26] MEDS ORDERED: LORazepam 2 MG/ML SDV VIAL IVPB ONE (09:49)
--- NOTE | 2019-07-26 09:54 | RAPID ---
Physical Examination Vital Signs: Vital Signs Temperature 99.2 F 07/26/19 05:30 Pulse Rate 96 H 07/26/19 05:30 Respiratory Rate 20 07/25/19 22:00 Blood Pressure 157/76 07/26/19 05:30 O2 Sat by Pulse Oximetry (%) 100 07/25/19 21:00 Labs: CBC, BMP 07/24/19 08:45 07/24/19 08:45 Rapid Response - Rapid Response Assessment: Respond to rapid for seizures at 0928. Tonic colonic seizure activity noted to LUE and RLE. NRBM placed at 10L. SPO2 100%. Ativan 2mg given @ 0930, 0941 and 1mg @ 0946 and seizrue acitivty appeared to stop. Keppa 1000mg IV load given. ICU consult initiated and Dr Whyte responded. Dr Crespo aware.
[2019-07-26] MEDS: HYDROCHLOROTHIAZIDE 25 MG TABLET (FP) NGT SCH (10:08)
[2019-07-26] MEDS: DONEPEZIL HCL 10 MG TABLET (FP) NGT SCH (10:08)
[2019-07-26] MEDS: ESCITALOPRAM OXALATE 10 MG TABLET (FP) NGT SCH (10:08)
[2019-07-26] MEDS: levETIRAcetam 500 MG TABLET (FP) PO SCH ×2 (10:08→21:44)
[2019-07-26] MEDS: CARBIDOPA/LEVODOPA 25/100 TABLET (FP) NGT SCH ×2 (10:08→21:47)
[2019-07-26] MEDS: ACETAMINOPHEN 650 MG/20.3 ML ORAL SOLUTION (CUPS) NGT PRN (10:08)
[2019-07-26] MEDS: FOSPHENYTOIN SODIUM 100 MG/2 ML VIAL IVPB SCH ×2 (10:09→21:55)
--- NOTE | 2019-07-26 11:00 | RAPID ---
Physical Examination Vital Signs: Vital Signs Temperature 99.8 F H 07/26/19 08:30 Pulse Rate 108 H 07/26/19 09:45 Respiratory Rate 21 H 07/26/19 09:45 Blood Pressure 135/103 07/26/19 09:45 O2 Sat by Pulse Oximetry (%) 100 07/25/19 21:00 Labs: CBC, BMP 07/24/19 08:45 07/24/19 08:45 Rapid Response - Rapid Response Assessment: Rapid response called and medical team responded immediately. Known pt with seizure disorder found nonresponsive and demonstrating convulsions. Pt had not yet received daily keppra dose. Tonic clonic movement on LEFT side of the body. A total of 5 mg ativan was delivered: 2 mg at 9:36am, 2 mg at 9:41am, and 1 mg at 9:46am, which resulted in cessation of convulsions. 1,000 mg IV keppra to be hung. Primary team contacted at bedside (Dr. Crespo) whom recommended ICU consult. Pt assessed by Dr. Yañez from ICU. Recommendations/Interventions: 5 mg ativan Primary Physician Notified: Erlinda Crespo
--- NOTE | 2019-07-26 11:01 | PN ---
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 Initial presentation to hospital was , she initally noted to have left sided face droopiness followed by generalized tonic clonic seizure, she was brought to hospital and was intubated. Patient had ct head, which was no acute finding On july 26 morning, patient has multiple seizures and was given extra keppra 1 gm iv once and multiple doses of Patient is sedated and withdraws to pain pupils reactive, no seizure activity was seen, corneal reflex are present Patient is sedated and detail neuro exam is not possible ct head done on july 06 was unchanged from before and there was no acute findings Assessment/Plan 89 year old female history of htn, pd, stroke with residual right hemiparesis, she is on keppra 500 mg bid( max dose due to creatinine clearance), and had multiple seizures on morning of . she was given extra keppra and ativan , now she is sedated. Clinically at this time, unlikely to be meningitis . Currently she is not having seizure Plan: continue keppra 500 mg iv bid, dilantin 100 mg iv bid agree with iv keppra once and ativan, I would add depakote [address] head and eeg - obtain all electrolyte I would reach out to pmd and findings were discussed with nursing staff Patient was referred palliative care, prognosis is guarded continue current level of care - supportive care Thanking you so much Davie Hughes MD
--- NOTE | 2019-07-26 11:24 | PN ---
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 (short form) - Note 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: Events noted. Rapid response called for seizure activity. Currently post-ictal on 100% NRBM. at the bedside. Overall decline in clinical status. Mildly tachypneic but in NAD. Intake & Output 07/23/19 07/24/19 07/25/19 07/26/19 23:59 23:59 23:59 23:59 Intake Total 2164 964 1020 480 Output Total 2 Balance 2164 962 1020 480 Weight 101 lb 2 oz 100 lb 3.2 oz Last Vital Signs Temp Pulse Resp BP Pulse Ox 99.8 F H 93 H 21 H 140/76 100 07/26/19 08:30 07/26/19 09:45 07/26/19 09:45 07/26/19 09:45 07/25/19 21:00 Active Medications Acetaminophen (Tylenol Oral Solution -) 650 mg NGT Q6H PRN PRN Reason: FEVER Last Admin: 07/26/19 10:08 Dose: 650 mg Carbidopa/Levodopa (Sinemet 25/100 -) 1 each NGT BID [facility] Last Admin: 07/26/19 10:08 Dose: 1 each Donepezil HCl (Aricept -) 10 mg NGT DAILY [facility] Last Admin: 07/26/19 10:08 Dose: 10 mg Escitalopram Oxalate (Lexapro -) 10 mg NGT DAILY [facility] Last Admin: 07/26/19 10:08 Dose: 10 mg Fosphenytoin Sodium (Cerebyx -) 100 mg IVPB BID [facility] Last Admin: 07/26/19 10:09 Dose: Not Given Heparin Sodium (Porcine) (Heparin -) 5,000 unit SQ TID [facility] Last Admin: 07/26/19 06:12 Dose: 5,000 unit Hydrochlorothiazide (Hctz -) 25 mg NGT DAILY [facility] Last Admin: 07/26/19 10:08 Dose: 25 mg Levetiracetam (Keppra -) 500 mg PO BID [facility] Last Admin: 07/26/19 10:08 Dose: Not Given Valproate Sodium (Depacon Injection -) 500 mg IVPB BID [facility] Constitutional: Yes: Lethargic, NAD Eyes: Yes: WNL HENT: Yes: WNL Neck: Yes: WNL Cardiovascular: Yes: Regular Rate and Rhythm, S1, S2 Respiratory: Yes: scattered ronchi Gastrointestinal: Yes: Normal Bowel Sounds, Soft Extremities: Yes: WNL Edema: No Labs: Problem List - Problems (1) Acute respiratory distress Code(s): R06.03 - ACUTE RESPIRATORY DISTRESS (2) CVA (cerebral vascular accident) Code(s): I63.9 - CEREBRAL INFARCTION, UNSPECIFIED (3) Respiratory failure Code(s): J96.90 - RESPIRATORY FAILURE, UNSP, UNSP W HYPOXIA OR HYPERCAPNIA (4) Status epilepticus Code(s): G40.901 - EPILEPSY, UNSP, NOT INTRACTABLE, WITH STATUS EPILEPTICUS (5) Alzheimer's dementia Code(s): G30.9 - ALZHEIMER'S DISEASE, UNSPECIFIED; F02.80 - DEMENTIA IN OTH DISEASES CLASSD ELSWHR W/O BEHAVRL DISTURB (6) HLD (hyperlipidemia) Code(s): E78.5 - HYPERLIPIDEMIA, UNSPECIFIED (7) HTN (hypertension) Code(s): I10 - ESSENTIAL (PRIMARY) HYPERTENSION (8) Seizure disorder Code(s): G40.909 - EPILEPSY, UNSP, NOT INTRACTABLE, WITHOUT STATUS EPILEPTICUS (9) Acute respiratory failure Code(s): J96.00 - ACUTE RESPIRATORY FAILURE, UNSP W HYPOXIA OR HYPERCAPNIA Assessment/Plan S/P Acute Respiratory Failure Breakthrough Seizure Pneumonia Seizure Disorder +Troponins likely Demand Ischemia h/o CVA Parkinsons Dementia HTN - Patient's overall clinical condition has been declining. She is DNR and noted Palliative care evaluation has been called. At this time she is not seizing and she is protecting her airway. There would be no additional outcome benefit from ICU monitoring at this time. Suggest: - continue antiepileptics as per neuro - 100% NRBM - Aspiration precautions - Would hold feeds - Palliative care evaluation and move toward focusing on end of life goals and comfort - Will follow Dr Narayanan
[2019-07-26] MEDS ORDERED: PT OWN MED DRAWER 7, Y5N ONE (13:17)
[2019-07-26] MEDS: VALPROATE SODIUM 500 MG/5 ML VIAL IVPB SCH ×2 (14:25→21:54)
--- NOTE | 2019-07-26 21:54 | PN ---
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, Physician - Current Medication List Current Medications: Active Medications Acetaminophen (Tylenol Oral Solution -) 650 mg NGT Q6H PRN PRN Reason: FEVER Last Admin: 07/26/19 10:08 Dose: 650 mg Carbidopa/Levodopa (Sinemet 25/100 -) 1 each NGT BID [facility] Last Admin: 07/26/19 10:08 Dose: 1 each Donepezil HCl (Aricept -) 10 mg NGT DAILY [facility] Last Admin: 07/26/19 10:08 Dose: 10 mg Escitalopram Oxalate (Lexapro -) 10 mg NGT DAILY [facility] Last Admin: 07/26/19 10:08 Dose: 10 mg Fosphenytoin Sodium (Cerebyx -) 100 mg IVPB BID [facility] Last Admin: 07/26/19 10:09 Dose: Not Given Heparin Sodium (Porcine) (Heparin -) 5,000 unit SQ TID [facility] Last Admin: 07/26/19 14:57 Dose: 5,000 unit Hydrochlorothiazide (Hctz -) 25 mg NGT DAILY [facility] Last Admin: 07/26/19 10:08 Dose: 25 mg Levetiracetam (Keppra -) 500 mg PO BID [facility] Last Admin: 07/26/19 10:08 Dose: Not Given Valproate Sodium (Depacon Injection -) 500 mg IVPB BID [facility] Last Admin: 07/26/19 14:25 Dose: Not Given - Objective Vital Signs: Vital Signs Temperature 98.4 F 07/26/19 15:01 Pulse Rate 71 07/26/19 15:01 Respiratory Rate 19 07/26/19 15:01 Blood Pressure 130/61 07/26/19 15:01 O2 Sat by Pulse Oximetry (%) 100 07/26/19 09:00 Labs: CBC, BMP 07/24/19 08:45 07/24/19 08:45 INR, PTT INR 0.96 (0.83-1.09) 07/06/19 21:40 Problem List - Problems (1) Seizure disorder Code(s): G40.909 - EPILEPSY, UNSP, NOT INTRACTABLE, WITHOUT STATUS EPILEPTICUS (2) Acute respiratory distress Code(s): R06.03 - ACUTE RESPIRATORY DISTRESS (3) HTN (hypertension) Code(s): I10 - ESSENTIAL (PRIMARY) HYPERTENSION (4) Parkinsons Code(s): G20 - PARKINSON'S DISEASE (5) Dementia Code(s): F03.90 - UNSPECIFIED DEMENTIA WITHOUT BEHAVIORAL DISTURBANCE
[2019-07-27] MEDS: HEPARIN NA (PORCINE) 5,000 UNITS/ML 1ML VIAL SQ SCH ×3 (06:19→22:16)
[2019-07-27] MEDS ORDERED: PT OWN MED DRAWER 7, Y5N ONE ×2 (10:03→22:11)
[2019-07-27] MEDS: ESCITALOPRAM OXALATE 10 MG TABLET (FP) NGT SCH (10:25)
[2019-07-27] MEDS: levETIRAcetam 500 MG TABLET (FP) PO SCH ×2 (10:25→22:17)
[2019-07-27] MEDS: VALPROATE SODIUM 500 MG/5 ML VIAL IVPB SCH ×2 (10:25→22:17)
[2019-07-27] MEDS: HYDROCHLOROTHIAZIDE 25 MG TABLET (FP) NGT SCH (10:25)
[2019-07-27] MEDS: DONEPEZIL HCL 10 MG TABLET (FP) NGT SCH (10:25)
[2019-07-27] MEDS: CARBIDOPA/LEVODOPA 25/100 TABLET (FP) NGT SCH ×2 (10:26→22:17)
--- NOTE | 2019-07-27 10:30 | PN ---
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 Initial presentation to hospital was , she initally noted to have left sided face droopiness followed by generalized tonic clonic seizure, she was brought to hospital and was intubated. Patient had ct head, which was no acute finding On july 26 morning, patient has multiple seizures and was given extra keppra 1 gm iv once depakote was added and she had ct head no acute finding and eeg did not show any subclinical status Patient is sedated and withdraws to pain, she is not able to converse pupils reactive, no seizure activity was seen, corneal reflex are present Detail neuro exam is not possible ct head done on july 06 was unchanged from before and there was no acute findings eeg no evidence of subclinical status Assessment/Plan 89 year old female history of htn, pd, stroke with residual right hemiparesis, she is on keppra 500 mg bid( max dose due to creatinine clearance), and had multiple seizures on morning of . she was given extra keppra and ativan ,ct is stable , eeg did not show any subclinical status Plan: continue keppra 500 mg iv bid, dilantin 100 mg iv bid and depakote [address] head and eeg reviewed and no acute findings Patient was referred palliative care, prognosis is guarded continue current level of care - supportive care Thanking you so much Davie Hughes MD
--- NOTE | 2019-07-27 10:49 | PN ---
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 (short form) - Note 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: Appears clinically much better today. NAD on NC O2. Breathing non-labored. Lethargic and poorly responsive. Intake & Output 07/24/19 07/25/19 07/26/19 07/27/19 23:59 23:59 23:59 23:59 Intake Total 964 1020 620 680 Output Total 2 Balance 962 1020 620 680 Weight 101 lb 2 oz 100 lb 3.2 oz Last Vital Signs Temp Pulse Resp BP Pulse Ox 99.1 F 88 20 146/63 99 07/27/19 06:00 07/27/19 06:00 07/26/19 23:00 07/27/19 06:00 07/26/19 22:00 Active Medications Acetaminophen (Tylenol Oral Solution -) 650 mg NGT Q6H PRN PRN Reason: FEVER Last Admin: 07/26/19 10:08 Dose: 650 mg Carbidopa/Levodopa (Sinemet 25/100 -) 1 each NGT BID [facility] Last Admin: 07/27/19 10:26 Dose: 1 each Donepezil HCl (Aricept -) 10 mg NGT DAILY [facility] Last Admin: 07/27/19 10:25 Dose: 10 mg Escitalopram Oxalate (Lexapro -) 10 mg NGT DAILY [facility] Last Admin: 07/27/19 10:25 Dose: 10 mg Fosphenytoin Sodium (Cerebyx -) 100 mg IVPB BID [facility] Last Admin: 07/26/19 21:55 Dose: 100 mg Heparin Sodium (Porcine) (Heparin -) 5,000 unit SQ TID [facility] Last Admin: 07/27/19 06:19 Dose: 5,000 unit Hydrochlorothiazide (Hctz -) 25 mg NGT DAILY [facility] Last Admin: 07/27/19 10:25 Dose: 25 mg Levetiracetam (Keppra -) 500 mg PO BID [facility] Last Admin: 07/27/19 10:25 Dose: 500 mg Valproate Sodium (Depacon Injection -) 500 mg IVPB BID [facility] Last Admin: 07/27/19 10:25 Dose: 500 mg Constitutional: Yes: Lethargic, NAD Eyes: Yes: WNL HENT: Yes: WNL Neck: Yes: WNL Cardiovascular: Yes: Regular Rate and Rhythm, S1, S2 Respiratory: Yes: scattered ronchi Gastrointestinal: Yes: Normal Bowel Sounds, Soft Extremities: Yes: WNL Edema: No Labs: Laboratory Results - last 24 hr 07/23/19 06:55 Levetiracetam 36.3 Problem List - Problems (1) Acute respiratory distress Code(s): R06.03 - ACUTE RESPIRATORY DISTRESS (2) CVA (cerebral vascular accident) Code(s): I63.9 - CEREBRAL INFARCTION, UNSPECIFIED (3) Respiratory failure Code(s): J96.90 - RESPIRATORY FAILURE, UNSP, UNSP W HYPOXIA OR HYPERCAPNIA (4) Status epilepticus Code(s): G40.901 - EPILEPSY, UNSP, NOT INTRACTABLE, WITH STATUS EPILEPTICUS (5) Alzheimer's dementia Code(s): G30.9 - ALZHEIMER'S DISEASE, UNSPECIFIED; F02.80 - DEMENTIA IN OTH DISEASES CLASSD ELSWHR W/O BEHAVRL DISTURB (6) HLD (hyperlipidemia) Code(s): E78.5 - HYPERLIPIDEMIA, UNSPECIFIED (7) HTN (hypertension) Code(s): I10 - ESSENTIAL (PRIMARY) HYPERTENSION (8) Seizure disorder Code(s): G40.909 - EPILEPSY, UNSP, NOT INTRACTABLE, WITHOUT STATUS EPILEPTICUS (9) Acute respiratory failure Code(s): J96.00 - ACUTE RESPIRATORY FAILURE, UNSP W HYPOXIA OR HYPERCAPNIA Assessment/Plan S/P Acute Respiratory Failure Breakthrough Seizure Pneumonia Seizure Disorder +Troponins likely Demand Ischemia h/o CVA Parkinsons Dementia HTN - continue antiepileptics as per neuro - NC O2 to maintain saturation - Aspiration precautions - Enteral feeds as tolerated - Palliative care evaluation - Ideally DNR and DNI Dr Narayanan
[2019-07-27] MEDS: FOSPHENYTOIN SODIUM 100 MG/2 ML VIAL IVPB SCH ×2 (12:11→22:17)
--- NOTE | 2019-07-27 23:15 | PN ---
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, Physician History of Present Illness: Pt lethargic and nonverbal - Current Medication List Current Medications: Active Medications Acetaminophen (Tylenol Oral Solution -) 650 mg NGT Q6H PRN PRN Reason: FEVER Last Admin: 07/26/19 10:08 Dose: 650 mg Carbidopa/Levodopa (Sinemet 25/100 -) 1 each NGT BID [facility] Last Admin: 07/27/19 22:17 Dose: 1 each Donepezil HCl (Aricept -) 10 mg NGT DAILY [facility] Last Admin: 07/27/19 10:25 Dose: 10 mg Escitalopram Oxalate (Lexapro -) 10 mg NGT DAILY [facility] Last Admin: 07/27/19 10:25 Dose: 10 mg Fosphenytoin Sodium (Cerebyx -) 100 mg IVPB BID [facility] Last Admin: 07/27/19 22:17 Dose: 100 mg Heparin Sodium (Porcine) (Heparin -) 5,000 unit SQ TID [facility] Last Admin: 07/27/19 22:16 Dose: 5,000 unit Hydrochlorothiazide (Hctz -) 25 mg NGT DAILY [facility] Last Admin: 07/27/19 10:25 Dose: 25 mg Levetiracetam (Keppra -) 500 mg PO BID [facility] Last Admin: 07/27/19 22:17 Dose: 500 mg Valproate Sodium (Depacon Injection -) 500 mg IVPB BID [facility] Last Admin: 07/27/19 22:17 Dose: 500 mg - Objective Vital Signs: Vital Signs Temperature 100.0 F H 07/27/19 14:45 Pulse Rate 90 07/27/19 14:45 Respiratory Rate 20 07/26/19 23:00 Blood Pressure 152/60 07/27/19 14:45 O2 Sat by Pulse Oximetry (%) 100 07/27/19 09:00 HENT: Yes: Other ((+) NGT) Neck: Yes: WNL, Supple Cardiovascular: Yes: WNL, Regular Rate and Rhythm Respiratory: Yes: Rhonchi Gastrointestinal: Yes: WNL, Normal Bowel Sounds, Soft Labs: CBC, BMP 07/24/19 08:45 07/24/19 08:45 INR, PTT INR 0.96 (0.83-1.09) 07/06/19 21:40 Problem List - Problems (1) Seizure disorder Assessment/Plan: Cont keppra/phenytoin/valproate Repeat CT scan head did not show any acute pathology Family is wanting feeding tube placement Will get GI consult Cont NGT feedings Palliative care consult noted Code(s): G40.909 - EPILEPSY, UNSP, NOT INTRACTABLE, WITHOUT STATUS EPILEPTICUS (2) HTN (hypertension) Assessment/Plan: BP stable Cont HCtz Code(s): I10 - ESSENTIAL (PRIMARY) HYPERTENSION (3) Parkinsons Assessment/Plan: Cont sinemet Code(s): G20 - PARKINSON'S DISEASE (4) Dementia Assessment/Plan: Cont aricept Code(s): F03.90 - UNSPECIFIED DEMENTIA WITHOUT BEHAVIORAL DISTURBANCE (5) Acute respiratory distress Assessment/Plan: Resolved Antibxs dc'ed Code(s): R06.03 - ACUTE RESPIRATORY DISTRESS
[2019-07-28] MEDS: HEPARIN NA (PORCINE) 5,000 UNITS/ML 1ML VIAL SQ SCH ×3 (05:19→22:33)
[2019-07-28 08:28] LABS: BASO % 1.5 % (0-2.0); EOS % 1.5 % (0-4.5); HEMATOCRIT 24.5 % (32.4-45.2); HEMOGLOBIN 8.3 GM/dL (10.7-15.3); LYMPH % 12.3 % (8-40); MCH 31.8 pg (25.7-33.7); MCHC 33.8 g/dl (32.0-36.0); MEAN CELL VOLUME 94.2 fl (80-96); MEAN PLT VOLUME 8.7 fl (7.5-11.1); MONO % 10.3 % (3.8-10.2); NEUT % 74.4 % (42.8-82.8); PLATELET COUNT 393 K/MM3 (134-434); RBC 2.61 M/mm3 (3.60-5.2); RDW 17.8 % (11.6-15.6); WHITE BLOOD COUNT 7.3 K/mm3 (4.0-10.0)
[2019-07-28 08:54] LABS: ALBUMIN 1.8 g/dl (3.4-5.0); BILIRUBIN,TOTAL 0.3 mg/dL (0.2-1); BLOOD UREA NITROGEN 7.7 mg/dL (7-18); CALCIUM 8.2 mg/dL (8.5-10.1); CREATININE 0.5 mg/dL (0.55-1.3); POTASSIUM 3.2 mmol/L (3.5-5.1); TOT PROT 4.8 g/dl (6.4-8.2)
--- NOTE | 2019-07-28 09:51 | PN ---
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, Physician Chief Complaint: Pt nonberbal; lying on left side; HR regular; tachypneic. - Current Medication List Current Medications: Active Medications Acetaminophen (Tylenol Oral Solution -) 650 mg NGT Q6H PRN PRN Reason: FEVER Last Admin: 07/26/19 10:08 Dose: 650 mg Carbidopa/Levodopa (Sinemet 25/100 -) 1 each NGT BID [facility] Last Admin: 07/27/19 22:17 Dose: 1 each Donepezil HCl (Aricept -) 10 mg NGT DAILY [facility] Last Admin: 07/27/19 10:25 Dose: 10 mg Escitalopram Oxalate (Lexapro -) 10 mg NGT DAILY [facility] Last Admin: 07/27/19 10:25 Dose: 10 mg Fosphenytoin Sodium (Cerebyx -) 100 mg IVPB BID [facility] Last Admin: 07/27/19 22:17 Dose: 100 mg Heparin Sodium (Porcine) (Heparin -) 5,000 unit SQ TID [facility] Last Admin: 07/28/19 05:19 Dose: 5,000 unit Hydrochlorothiazide (Hctz -) 25 mg NGT DAILY [facility] Last Admin: 07/27/19 10:25 Dose: 25 mg Levetiracetam (Keppra -) 500 mg PO BID [facility] Last Admin: 07/27/19 22:17 Dose: 500 mg Valproate Sodium (Depacon Injection -) 500 mg IVPB BID [facility] Last Admin: 07/27/19 22:17 Dose: 500 mg - Objective Vital Signs: Vital Signs Temperature 98.1 F 07/28/19 05:00 Pulse Rate 88 07/28/19 05:00 Respiratory Rate 21 H 07/27/19 22:00 Blood Pressure 132/59 L 07/28/19 05:00 O2 Sat by Pulse Oximetry (%) 100 07/27/19 21:00 Constitutional: Yes: Thin Eyes: Yes: Conjunctiva Clear Cardiovascular: Yes: S1, S2 Respiratory: Yes: Regular Genitourinary: No: Anuria Musculoskeletal: Yes: Muscle Weakness Extremities: Yes: Cool Edema: No Peripheral Pulses WNL: Yes Neurological: Yes: Weakness Psychiatric: Yes: Other (dementia) Labs: CBC, BMP 07/28/19 06:05 07/28/19 06:05 INR, PTT INR 0.96 (0.83-1.09) 07/06/19 21:40 Problem List - Problems (1) Diastolic CHF Assessment/Plan: On HCTZ due to rales, tachypnea; can increase dose for 24-48 hours. F/u BUN/Cr, electrolytes (being repleted), daily weight, Is and Os. Code(s): I50.30 - UNSPECIFIED DIASTOLIC (CONGESTIVE) HEART FAILURE (2) CVA (cerebral vascular accident) Code(s): I63.9 - CEREBRAL INFARCTION, UNSPECIFIED (3) Hypokalemia Assessment/Plan: Repleted K+, f/u in am, and keep 4-4.5 (on HCTZ). Repleted Mg2+, and keep 2-2.4 Keep PO4 2.5-4.9 Code(s): E87.6 - HYPOKALEMIA (4) Leukocytosis Code(s): D72.829 - ELEVATED WHITE BLOOD CELL COUNT, UNSPECIFIED (5) Respiratory failure Code(s): J96.90 - RESPIRATORY FAILURE, UNSP, UNSP W HYPOXIA OR HYPERCAPNIA (6) Alzheimer's dementia Code(s): G30.9 - ALZHEIMER'S DISEASE, UNSPECIFIED; F02.80 - DEMENTIA IN OTH DISEASES CLASSD ELSWHR W/O BEHAVRL DISTURB (7) HTN (hypertension) Code(s): I10 - ESSENTIAL (PRIMARY) HYPERTENSION (8) Tachycardia Assessment/Plan: multifactorial, including fever, dehydration. Presently improved; HR now in 80s- 90s bpm. EKG: NSR: nonspecific T wave changes. Repleted electrolytes; f/u levels. TSH 0.76 (in 2018). Code(s): R00.0 - TACHYCARDIA, UNSPECIFIED (9) Hypoalbuminemia Assessment/Plan: portends poor prognosis. F/u nutritional status. Code(s): E88.09 - OTH DISORDERS OF PLASMA-PROTEIN METABOLISM, NEC (10) Parkinsons Assessment/Plan: on levocarbidopa Code(s): G20 - PARKINSON'S DISEASE (11) Kyphoscoliosis Code(s): M41.9 - SCOLIOSIS, UNSPECIFIED
[2019-07-28] MEDS: DONEPEZIL HCL 10 MG TABLET (FP) NGT SCH (10:16)
[2019-07-28] MEDS: levETIRAcetam 500 MG TABLET (FP) PO SCH ×2 (10:16→22:34)
[2019-07-28] MEDS: VALPROATE SODIUM 500 MG/5 ML VIAL IVPB SCH ×2 (10:16→22:32)
[2019-07-28] MEDS: CARBIDOPA/LEVODOPA 25/100 TABLET (FP) NGT SCH ×2 (10:16→22:33)
[2019-07-28] MEDS: HYDROCHLOROTHIAZIDE 25 MG TABLET (FP) NGT SCH (10:16)
[2019-07-28] MEDS: ESCITALOPRAM OXALATE 10 MG TABLET (FP) NGT SCH (10:16)
[2019-07-28] MEDS: FOSPHENYTOIN SODIUM 100 MG/2 ML VIAL IVPB SCH ×2 (10:16→22:33)
--- NOTE | 2019-07-28 11:23 | CON.GI ---
Consult Consult Specialty:: Gastroenterology Reason for Consultation:: PEG - History of Present Illness History of Present Illness: 89yo female h/o CVA, dementia, parkinsons disease, seizure disorder presenting with facial droop and seizures asked to evaluate for PEG. Pts at bedside. Pt nonverbal. He reports pt had left facial droop and seizure activity prompting hospitalization. No acute findings noted on CT imaging though with prolonged hospital course initially had required intubation now extubated with recurrent seizure activity noted, last [employer] on 07/26. At baseline minimally verbal and non-ambulatory now with further clinical deterioration. Pt has been evaluated by palliative care, now DNR/DNI though family wanting to proceed with feeding tube and likely SNF facility. Still with recurrent seizure activity and EEG pending today. Tolerating NG feeds. 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's, CVA, Dementia, Seizure Cardio/Vascular: Yes: HTN Pulmonary: Yes: Pneumonia ...: No Psych: Yes: Depression Musculoskeletal: Yes: Other (kyphoscoliosis) - Past Surgical History Past Surgical History: Yes: None - Alcohol/Substance Use Hx Alcohol Use: No - Smoking History Smoking history: Unknown if ever smoked Have you smoked in the past 12 months: No Aproximately how many cigarettes per day: 0 Home Medications - Allergies Allergies/Adverse Reactions: Allergies Allergy/AdvReac Type Severity Reaction Status Date / Time No Known Allergies Allergy Verified 07/06/19 21:45 - Home Medications Home Medications: Ambulatory Orders Carbidopa/Levodopa 25/100 [Sinemet 25/100 -] 1 each PO TID 07/05/18 Donepezil HCl [Aricept] 10 mg PO DAILY 07/05/18 Escitalopram Oxalate [Lexapro -] 10 mg PO DAILY 07/05/18 Olmesartan Medoxomil [Benicar] 20 mg PO DAILY 07/05/18 Quetiapine Fumarate [Seroquel -] 25 mg PO BID 07/05/18 levETIRAcetam [Keppra -] 500 mg PO BID 07/05/18 Acetaminophen [Tylenol .Regular Strength -] 650 mg PO Q6H PRN tablet 07/12/18 Carbidopa/Levodopa 25/100 [Sinemet 25/100 -] 1 each PO BID tablet 07/12/18 Donepezil HCl [Aricept -] 10 mg PO DAILY tablet 07/12/18 levETIRAcetam [Keppra -] 750 mg PO BID tablet 07/12/18 Hydrochlorothiazide [Hctz -] 25 mg PO DAILY #30 tablet 07/14/18 Review of Systems Unable to obtain ROS, reason: Pt nonverbal Physical Exam-GI Vital Signs: Vital Signs Temperature 98.1 F 07/28/19 05:00 Pulse Rate 88 07/28/19 05:00 Respiratory Rate 21 H 07/27/19 22:00 Blood Pressure 132/59 L 07/28/19 05:00 O2 Sat by Pulse Oximetry (%) 100 07/27/19 21:00 Constitutional: Yes: Other (pt nonverbal, not responsive) Cardiovascular: Yes: WNL, Regular Rate and Rhythm Respiratory: Yes: Diminished ...Palpate: Yes: Other (Abd soft, no tenderness elicited, non distended, no rebound, guarding or rigidity +small well healed periumbilical scar) Labs: CBC, BMP 07/28/19 06:05 07/28/19 06:05 INR, PTT INR 0.96 (0.83-1.09) 07/06/19 21:40 Problem List - Problems (1) Encounter for PEG (percutaneous endoscopic gastrostomy) Assessment/Plan: 89yo female h/o CHF, CVA, dementia, parkinsons disease, seizure disorder presenting with facial droop and seizures asked to evaluate for PEG. Prolonged hospital course with recurrent seizure activity noted. Also continues to be optimized from a respiratory standpoint with underlying CHF and pleural effusions. -Detailed discussion taken place with pts daughter Arnol by phone today, regarding risks/benefits of PEG placement. 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 Also discussed IR as alternative method of gastrostomy placement. Considering pts tenuous respiratory standpoint and recurrent seizure activity would avoid endoscopic placement at this time and recommend IR consult for gastrostomy once pt is further optimized. -Pts daughter verbalized understanding of risks/benefits and also wants to avoid endoscopy, opting for IR placement though would like to discuss further with her father before proceeding. -Repeat INR -Continue optimization from neurological and cardiorespiratory standpoint -Continue NG feeds for now -Await family decision and continue goals of care discussion -Please call GI if questions/concerns in the interim Code(s): Z43.1 - ENCOUNTER FOR ATTENTION TO GASTROSTOMY
--- NOTE | 2019-07-28 13:20 | PN ---
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, Physician History of Present Illness: pulmonary still seizing,-congestion - Current Medication List Current Medications: Active Medications Acetaminophen (Tylenol Oral Solution -) 650 mg NGT Q6H PRN PRN Reason: FEVER Last Admin: 07/26/19 10:08 Dose: 650 mg Carbidopa/Levodopa (Sinemet 25/100 -) 1 each NGT BID [facility] Last Admin: 07/28/19 10:16 Dose: 1 each Donepezil HCl (Aricept -) 10 mg NGT DAILY [facility] Last Admin: 07/28/19 10:16 Dose: 10 mg Escitalopram Oxalate (Lexapro -) 10 mg NGT DAILY [facility] Last Admin: 07/28/19 10:16 Dose: 10 mg Fosphenytoin Sodium (Cerebyx -) 100 mg IVPB BID [facility] Last Admin: 07/28/19 10:16 Dose: 100 mg Heparin Sodium (Porcine) (Heparin -) 5,000 unit SQ TID [facility] Last Admin: 07/28/19 05:19 Dose: 5,000 unit Hydrochlorothiazide (Hctz -) 25 mg NGT DAILY [facility] Last Admin: 07/28/19 10:16 Dose: 25 mg Levetiracetam (Keppra -) 500 mg PO BID [facility] Last Admin: 07/28/19 10:16 Dose: 500 mg Valproate Sodium (Depacon Injection -) 500 mg IVPB BID [facility] Last Admin: 07/28/19 10:16 Dose: 500 mg - Objective Vital Signs: Vital Signs Temperature 98.1 F 07/28/19 05:00 Pulse Rate 88 07/28/19 05:00 Respiratory Rate 21 H 07/27/19 22:00 Blood Pressure 132/59 L 07/28/19 05:00 O2 Sat by Pulse Oximetry (%) 100 07/27/19 21:00 Constitutional: Yes: Thin, Other (seizing) Eyes: Yes: WNL HENT: Yes: WNL Neck: Yes: WNL Cardiovascular: Yes: Regular Rate and Rhythm, S1, S2 Respiratory: Yes: Diminished Gastrointestinal: Yes: Normal Bowel Sounds, Soft Extremities: Yes: WNL Edema: No Neurological: Yes: Seizure Labs: CBC, BMP 07/28/19 06:05 07/28/19 06:05 INR, PTT INR 0.96 (0.83-1.09) 07/06/19 21:40 Problem List - Problems (1) Acute respiratory distress Code(s): R06.03 - ACUTE RESPIRATORY DISTRESS (2) CVA (cerebral vascular accident) Code(s): I63.9 - CEREBRAL INFARCTION, UNSPECIFIED (3) Respiratory failure Code(s): J96.90 - RESPIRATORY FAILURE, UNSP, UNSP W HYPOXIA OR HYPERCAPNIA (4) Status epilepticus Code(s): G40.901 - EPILEPSY, UNSP, NOT INTRACTABLE, WITH STATUS EPILEPTICUS (5) Alzheimer's dementia Code(s): G30.9 - ALZHEIMER'S DISEASE, UNSPECIFIED; F02.80 - DEMENTIA IN OTH DISEASES CLASSD ELSWHR W/O BEHAVRL DISTURB (6) HLD (hyperlipidemia) Code(s): E78.5 - HYPERLIPIDEMIA, UNSPECIFIED (7) HTN (hypertension) Code(s): I10 - ESSENTIAL (PRIMARY) HYPERTENSION (8) Seizure disorder Code(s): G40.909 - EPILEPSY, UNSP, NOT INTRACTABLE, WITHOUT STATUS EPILEPTICUS (9) Acute respiratory failure Code(s): J96.00 - ACUTE RESPIRATORY FAILURE, UNSP W HYPOXIA OR HYPERCAPNIA Assessment/Plan A/P s/p Acute Respiratory Failure Breakthrough Seizure r/o Pneumonia Seizure Disorder +Troponins likely Demand Ischemia h/o CVA Parkinsons Dementia HTN - antiepileptics as per neuro - O2 as needed - DVT prophylaxis - lasix as needed DR MAC
--- NOTE | 2019-07-28 13:39 | PN ---
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 Initial presentation to hospital was , she initally noted to have left sided face droopiness followed by generalized tonic clonic seizure, she was brought to hospital and was intubated. Patient had ct head, which was no acute findings. Patient has not had any episode of seizure and eeg is pending. No more seizure. - Current Medication List Current Medications: Active Medications Acetaminophen (Tylenol Oral Solution -) 650 mg NGT Q6H PRN PRN Reason: FEVER Last Admin: 07/26/19 10:08 Dose: 650 mg Carbidopa/Levodopa (Sinemet 25/100 -) 1 each NGT BID [facility] Last Admin: 07/28/19 10:16 Dose: 1 each Donepezil HCl (Aricept -) 10 mg NGT DAILY [facility] Last Admin: 07/28/19 10:16 Dose: 10 mg Escitalopram Oxalate (Lexapro -) 10 mg NGT DAILY [facility] Last Admin: 07/28/19 10:16 Dose: 10 mg Fosphenytoin Sodium (Cerebyx -) 100 mg IVPB BID [facility] Last Admin: 07/28/19 10:16 Dose: 100 mg Heparin Sodium (Porcine) (Heparin -) 5,000 unit SQ TID [facility] Last Admin: 07/28/19 05:19 Dose: 5,000 unit Hydrochlorothiazide (Hctz -) 25 mg NGT DAILY [facility] Last Admin: 07/28/19 10:16 Dose: 25 mg Levetiracetam (Keppra -) 500 mg PO BID [facility] Last Admin: 07/28/19 10:16 Dose: 500 mg Valproate Sodium (Depacon Injection -) 500 mg IVPB BID [facility] Last Admin: 07/28/19 10:16 Dose: 500 mg - Objective Vital Signs: Vital Signs Temperature 98.1 F 07/28/19 05:00 Pulse Rate 88 07/28/19 05:00 Respiratory Rate 21 H 07/27/19 22:00 Blood Pressure 132/59 L 07/28/19 05:00 O2 Sat by Pulse Oximetry (%) 100 07/27/19 21:00 Eyes: Yes: WNL, Conjunctiva Clear, EOM Intact HENT: Yes: WNL, Atraumatic, Normocephalic Neck: Yes: WNL, Supple, Trachea Midline Cardiovascular: Yes: WNL, Regular Rate and Rhythm Respiratory: Yes: WNL, Regular, Diminished Gastrointestinal: Yes: WNL, Normal Bowel Sounds Genitourinary: Yes: WNL Musculoskeletal: Yes: WNL Extremities: Yes: WNL Edema: No Integumentary: Yes: WNL Neurological: Yes: Oriented Labs: CBC, BMP 07/28/19 06:05 07/28/19 06:05 INR, PTT INR 0.96 (0.83-1.09) 07/06/19 21:40 Assessment/Plan - Problems (1) Diastolic CHF Assessment/Plan: On HCTZ due to rales, tachypnea; can increase dose for 24-48 hours. F/u BUN/Cr, electrolytes (being repleted), daily weight, Is and Os. Code(s): I50.30 - UNSPECIFIED DIASTOLIC (CONGESTIVE) HEART FAILURE (2) CVA (cerebral vascular accident) Code(s): I63.9 - CEREBRAL INFARCTION, UNSPECIFIED (3) Hypokalemia Assessment/Plan: Repleted K+, f/u in am, and keep 4-4.5 (on HCTZ). Repleted Mg2+, and keep 2-2.4 Keep PO4 2.5-4.9 Code(s): E87.6 - HYPOKALEMIA (4) Leukocytosis Code(s): D72.829 - ELEVATED WHITE BLOOD CELL COUNT, UNSPECIFIED (5) Respiratory failure Code(s): J96.90 - RESPIRATORY FAILURE, UNSP, UNSP W HYPOXIA OR HYPERCAPNIA (6) Alzheimer's dementia Code(s): G30.9 - ALZHEIMER'S DISEASE, UNSPECIFIED; F02.80 - DEMENTIA IN OTH DISEASES CLASSD ELSWHR W/O BEHAVRL DISTURB (7) HTN (hypertension) Code(s): I10 - ESSENTIAL (PRIMARY) HYPERTENSION (8) Tachycardia Assessment/Plan: multifactorial, including fever, dehydration. Presently improved; HR now in 80s- 90s bpm. EKG: NSR: nonspecific T wave changes. Repleted electrolytes; f/u levels. TSH 0.76 (in 2018). Code(s): R00.0 - TACHYCARDIA, UNSPECIFIED (9) Hypoalbuminemia Assessment/Plan: portends poor prognosis. F/u nutritional status. Code(s): E88.09 - OTH DISORDERS OF PLASMA-PROTEIN METABOLISM, NEC (10) Parkinsons Assessment/Plan: on levocarbidopa Code(s): G20 - PARKINSON'S DISEASE (11) Kyphoscoliosis Code(s): M41.9 - SCOLIOSIS, UNSPECIFIED
[2019-07-28] MEDS ORDERED: diazePAM CARPU-JECT 10 MG/2 ML DISP.SYRIN IVPUSH ONE (14:15)
[2019-07-28 15:51] LABS: BLOOD UREA NITROGEN 6.3 mg/dL (7-18); CALCIUM 7.9 mg/dL (8.5-10.1); CREATININE 0.5 mg/dL (0.55-1.3); POTASSIUM 3.1 mmol/L (3.5-5.1)
--- NOTE | 2019-07-28 20:57 | PN ---
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, Physician History of Present Illness: Pt lethargic l - Current Medication List Current Medications: Active Medications Acetaminophen (Tylenol Oral Solution -) 650 mg NGT Q6H PRN PRN Reason: FEVER Last Admin: 07/26/19 10:08 Dose: 650 mg Carbidopa/Levodopa (Sinemet 25/100 -) 1 each NGT BID [facility] Last Admin: 07/28/19 10:16 Dose: 1 each Donepezil HCl (Aricept -) 10 mg NGT DAILY [facility] Last Admin: 07/28/19 10:16 Dose: 10 mg Escitalopram Oxalate (Lexapro -) 10 mg NGT DAILY [facility] Last Admin: 07/28/19 10:16 Dose: 10 mg Fosphenytoin Sodium (Cerebyx -) 100 mg IVPB BID [facility] Last Admin: 07/28/19 10:16 Dose: 100 mg Heparin Sodium (Porcine) (Heparin -) 5,000 unit SQ TID [facility] Last Admin: 07/28/19 14:26 Dose: 5,000 unit Hydrochlorothiazide (Hctz -) 25 mg NGT DAILY [facility] Last Admin: 07/28/19 10:16 Dose: 25 mg Levetiracetam (Keppra -) 500 mg PO BID [facility] Last Admin: 07/28/19 10:16 Dose: 500 mg Valproate Sodium (Depacon Injection -) 750 mg IVPB BID [facility] - Objective Vital Signs: Vital Signs Temperature 99.6 F 07/28/19 14:00 Pulse Rate 94 H 07/28/19 14:00 Respiratory Rate 20 07/28/19 14:00 Blood Pressure 138/52 L 07/28/19 14:00 O2 Sat by Pulse Oximetry (%) 100 07/28/19 10:00 Cardiovascular: Yes: WNL, Regular Rate and Rhythm Respiratory: Yes: WNL, Regular, CTA Bilaterally Gastrointestinal: Yes: WNL, Normal Bowel Sounds, Soft Labs: CBC, BMP 07/28/19 06:05 07/28/19 14:40 INR, PTT INR 0.96 (0.83-1.09) 07/06/19 21:40 Problem List - Problems (1) Seizure disorder Assessment/Plan: Cont keppra/phenytoin/valproate Repeat CT scan head did not show any acute pathology GI consult noted and family to discuss about IR placing feeding tube Await family decision Code(s): G40.909 - EPILEPSY, UNSP, NOT INTRACTABLE, WITHOUT STATUS EPILEPTICUS (2) HTN (hypertension) Assessment/Plan: BP stable Cont HCtz Code(s): I10 - ESSENTIAL (PRIMARY) HYPERTENSION (3) Parkinsons Assessment/Plan: Cont sinemet Code(s): G20 - PARKINSON'S DISEASE (4) Dementia Assessment/Plan: Cont aricept Code(s): F03.90 - UNSPECIFIED DEMENTIA WITHOUT BEHAVIORAL DISTURBANCE (5) Acute respiratory distress Assessment/Plan: Resolved Antibxs dc'ed Code(s): R06.03 - ACUTE RESPIRATORY DISTRESS
[2019-07-28] MEDS ORDERED: PT OWN MED DRAWER 7, Y5N ONE (21:40)
[2019-07-29] MEDS: HEPARIN NA (PORCINE) 5,000 UNITS/ML 1ML VIAL SQ SCH ×3 (06:32→22:44)
[2019-07-29] MEDS ORDERED: PT OWN MED DRAWER 7, Y5N ONE (10:02)
[2019-07-29] MEDS: ESCITALOPRAM OXALATE 10 MG TABLET (FP) NGT SCH (10:04)
[2019-07-29] MEDS: CARBIDOPA/LEVODOPA 25/100 TABLET (FP) NGT SCH ×2 (10:04→22:44)
[2019-07-29] MEDS: DONEPEZIL HCL 10 MG TABLET (FP) NGT SCH (10:04)
[2019-07-29] MEDS: HYDROCHLOROTHIAZIDE 25 MG TABLET (FP) NGT SCH (10:04)
[2019-07-29] MEDS: levETIRAcetam 500 MG TABLET (FP) PO SCH ×2 (10:04→22:44)
[2019-07-29] MEDS: VALPROATE SODIUM 500 MG/5 ML VIAL IVPB SCH ×2 (10:05→22:43)
--- NOTE | 2019-07-29 10:10 | PN ---
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 (short form) - Note 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: NAD on NC O2. Breathing non-labored. No acute events overnight. Intermittent tremors. Intake & Output 07/26/19 07/27/19 07/28/19 07/29/19 23:59 23:59 23:59 23:59 Intake Total 620 1160 800 0 Balance 620 1160 800 0 Weight 100 lb 3.2 oz 100 lb 6 oz Last Vital Signs Temp Pulse Resp BP Pulse Ox 98.6 F 67 20 127/50 L 100 07/29/19 04:00 07/29/19 04:00 07/29/19 04:00 07/29/19 04:00 07/28/19 21:00 Active Medications Acetaminophen (Tylenol Oral Solution -) 650 mg NGT Q6H PRN PRN Reason: FEVER Last Admin: 07/26/19 10:08 Dose: 650 mg Carbidopa/Levodopa (Sinemet 25/100 -) 1 each NGT BID [facility] Last Admin: 07/28/19 22:33 Dose: 1 each Donepezil HCl (Aricept -) 10 mg NGT DAILY [facility] Last Admin: 07/28/19 10:16 Dose: 10 mg Escitalopram Oxalate (Lexapro -) 10 mg NGT DAILY [facility] Last Admin: 07/28/19 10:16 Dose: 10 mg Fosphenytoin Sodium (Cerebyx -) 100 mg IVPB BID [facility] Last Admin: 07/28/19 22:33 Dose: 100 mg Heparin Sodium (Porcine) (Heparin -) 5,000 unit SQ TID [facility] Last Admin: 07/29/19 06:32 Dose: 5,000 unit Hydrochlorothiazide (Hctz -) 25 mg NGT DAILY [facility] Last Admin: 07/28/19 10:16 Dose: 25 mg Levetiracetam (Keppra -) 500 mg PO BID [facility] Last Admin: 07/28/19 22:34 Dose: 500 mg Valproate Sodium (Depacon Injection -) 750 mg IVPB BID [facility] Last Admin: 07/28/19 22:32 Dose: 750 mg Constitutional: Yes: NAD Eyes: Yes: WNL HENT: Yes: WNL Neck: Yes: WNL Cardiovascular: Yes: Regular Rate and Rhythm, S1, S2 Respiratory: Yes: scattered ronchi Gastrointestinal: Yes: Normal Bowel Sounds, Soft Extremities: Yes: WNL Edema: No Labs: Laboratory Results - last 24 hr 07/28/19 07/28/19 06:05 14:40 Sodium 140 142 Potassium 3.2 L 3.1 L Chloride 100 101 Carbon Dioxide 34 H 37 H Anion Gap 6 L 3 L BUN 7.7 6.3 L Creatinine 0.5 L 0.5 L Est GFR (CKD-EPI)AfAm 100.86 100.86 Est GFR (CKD-EPI)NonAf 87.02 87.02 Random Glucose 101 98 Calcium 8.2 L 7.9 L Total Bilirubin 0.3 AST 53 H ALT 8 L Alkaline Phosphatase 51 Total Protein 4.8 L Albumin 1.8 L TSH 2.35 Problem List - Problems (1) Acute respiratory distress Code(s): R06.03 - ACUTE RESPIRATORY DISTRESS (2) CVA (cerebral vascular accident) Code(s): I63.9 - CEREBRAL INFARCTION, UNSPECIFIED (3) Respiratory failure Code(s): J96.90 - RESPIRATORY FAILURE, UNSP, UNSP W HYPOXIA OR HYPERCAPNIA (4) Status epilepticus Code(s): G40.901 - EPILEPSY, UNSP, NOT INTRACTABLE, WITH STATUS EPILEPTICUS (5) Alzheimer's dementia Code(s): G30.9 - ALZHEIMER'S DISEASE, UNSPECIFIED; F02.80 - DEMENTIA IN OTH DISEASES CLASSD ELSWHR W/O BEHAVRL DISTURB (6) HLD (hyperlipidemia) Code(s): E78.5 - HYPERLIPIDEMIA, UNSPECIFIED (7) HTN (hypertension) Code(s): I10 - ESSENTIAL (PRIMARY) HYPERTENSION (8) Seizure disorder Code(s): G40.909 - EPILEPSY, UNSP, NOT INTRACTABLE, WITHOUT STATUS EPILEPTICUS (9) Acute respiratory failure Code(s): J96.00 - ACUTE RESPIRATORY FAILURE, UNSP W HYPOXIA OR HYPERCAPNIA Assessment/Plan S/P Acute Respiratory Failure Breakthrough Seizure Pneumonia Seizure Disorder +Troponins likely Demand Ischemia h/o CVA Parkinsons Dementia HTN - continue antiepileptics as per neuro - NC O2 to maintain saturation - Aspiration precautions - Enteral feeds as tolerated - Ideally DNR and DNI - Ongoing discussions for [facility] Dr Narayanan
[2019-07-29] MEDS: FOSPHENYTOIN SODIUM 100 MG/2 ML VIAL IVPB SCH ×2 (11:25→22:43)
--- NOTE | 2019-07-29 12:14 | PN ---
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 Initial presentation to hospital was , she initally noted to have left sided face droopiness followed by generalized tonic clonic seizure, she was brought to hospital and was intubated. Patient had ct head, which was no acute finding On july 26 morning, patient has multiple seizures and was given extra keppra 1 gm iv once depakote was added and she had ct head no acute finding and eeg did not show any subclinical status She has seizure again on july 28 , and her depakote dose was increased to 750 mg iv bid Patient is sedated and withdraws to pain, pupils reactive, no seizure activity was seen, corneal reflex are present Detail neuro exam is not possible ct head done on july 06 was unchanged from before and there was no acute findings eeg no evidence of subclinical status on july 11 Assessment/Plan 89 year old female history of htn, pd, stroke with residual right hemiparesis, she is on keppra 500 mg bid( max dose due to creatinine clearance), and had multiple seizures on morning of and again on july 28 she was given extra keppra and ativan ,ct is stable , eeg did not show any subclinical status Plan: continue keppra 500 mg iv bid, dilantin 100 mg iv bid and depakote [address] head and eeg reviewed and no acute findings stop celexa as it can lowerseizure threshold continue current level of care Thanking you so much Davie Hughes MD
--- NOTE | 2019-07-29 21:11 | PN ---
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, Physician - Current Medication List Current Medications: Active Medications Acetaminophen (Tylenol Oral Solution -) 650 mg NGT Q6H PRN PRN Reason: FEVER Last Admin: 07/26/19 10:08 Dose: 650 mg Carbidopa/Levodopa (Sinemet 25/100 -) 1 each NGT BID [facility] Last Admin: 07/29/19 10:04 Dose: 1 each Donepezil HCl (Aricept -) 10 mg NGT DAILY [facility] Last Admin: 07/29/19 10:04 Dose: 10 mg Fosphenytoin Sodium (Cerebyx -) 100 mg IVPB BID [facility] Last Admin: 07/29/19 11:25 Dose: 100 mg Heparin Sodium (Porcine) (Heparin -) 5,000 unit SQ TID [facility] Last Admin: 07/29/19 14:35 Dose: 5,000 unit Hydrochlorothiazide (Hctz -) 25 mg NGT DAILY [facility] Last Admin: 07/29/19 10:04 Dose: 25 mg Levetiracetam (Keppra -) 500 mg PO BID [facility] Last Admin: 07/29/19 10:04 Dose: 500 mg Valproate Sodium (Depacon Injection -) 750 mg IVPB BID [facility] Last Admin: 07/29/19 10:05 Dose: 750 mg - Objective Vital Signs: Vital Signs Temperature 99.6 F 07/29/19 16:31 Pulse Rate 86 07/29/19 16:31 Respiratory Rate 22 H 07/29/19 16:31 Blood Pressure 140/84 07/29/19 16:31 O2 Sat by Pulse Oximetry (%) 100 07/29/19 09:00 Labs: CBC, BMP 07/28/19 06:05 07/28/19 14:40 INR, PTT INR 0.96 (0.83-1.09) 07/06/19 21:40 Problem List - Problems (1) Seizure disorder Code(s): G40.909 - EPILEPSY, UNSP, NOT INTRACTABLE, WITHOUT STATUS EPILEPTICUS (2) HTN (hypertension) Code(s): I10 - ESSENTIAL (PRIMARY) HYPERTENSION (3) Parkinsons Code(s): G20 - PARKINSON'S DISEASE (4) Dementia Code(s): F03.90 - UNSPECIFIED DEMENTIA WITHOUT BEHAVIORAL DISTURBANCE (5) Acute respiratory distress Code(s): R06.03 - ACUTE RESPIRATORY DISTRESS
[2019-07-30] MEDS: HEPARIN NA (PORCINE) 5,000 UNITS/ML 1ML VIAL SQ SCH ×3 (06:39→21:25)
[2019-07-30] MEDS ORDERED: PT OWN MED DRAWER 7, Y5N ONE ×2 (09:24→20:58)
[2019-07-30] MEDS: levETIRAcetam 500 MG TABLET (FP) PO SCH ×2 (10:19→21:25)
[2019-07-30] MEDS: ACETAMINOPHEN 650 MG/20.3 ML ORAL SOLUTION (CUPS) NGT PRN (10:19)
[2019-07-30] MEDS: CARBIDOPA/LEVODOPA 25/100 TABLET (FP) NGT SCH ×2 (10:19→21:25)
[2019-07-30] MEDS: HYDROCHLOROTHIAZIDE 25 MG TABLET (FP) NGT SCH (10:19)
[2019-07-30] MEDS: DONEPEZIL HCL 10 MG TABLET (FP) NGT SCH (10:20)
[2019-07-30] MEDS: VALPROATE SODIUM 500 MG/5 ML VIAL IVPB SCH ×2 (10:20→21:24)
--- NOTE | 2019-07-30 11:17 | PN ---
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 Initial presentation to hospital was , she initally noted to have left sided face droopiness followed by generalized tonic clonic seizure, she was brought to hospital and was intubated. Patient had ct head, which was no acute findings. Patient has not had any episode of seizure and eeg is pending. No more seizure. - Current Medication List Current Medications: Active Medications Acetaminophen (Tylenol Oral Solution -) 650 mg NGT Q6H PRN PRN Reason: FEVER Last Admin: 07/30/19 10:19 Dose: 650 mg Carbidopa/Levodopa (Sinemet 25/100 -) 1 each NGT BID [facility] Last Admin: 07/30/19 10:19 Dose: 1 each Donepezil HCl (Aricept -) 10 mg NGT DAILY [facility] Last Admin: 07/30/19 10:20 Dose: 10 mg Fosphenytoin Sodium (Cerebyx -) 100 mg IVPB BID [facility] Last Admin: 07/29/19 22:43 Dose: 100 mg Heparin Sodium (Porcine) (Heparin -) 5,000 unit SQ TID [facility] Last Admin: 07/30/19 06:39 Dose: 5,000 unit Hydrochlorothiazide (Hctz -) 25 mg NGT DAILY [facility] Last Admin: 07/30/19 10:19 Dose: 25 mg Levetiracetam (Keppra -) 500 mg PO BID [facility] Last Admin: 07/30/19 10:19 Dose: 500 mg Valproate Sodium (Depacon Injection -) 750 mg IVPB BID [facility] Last Admin: 07/30/19 10:20 Dose: 750 mg - Objective Vital Signs: Vital Signs Temperature 100.2 F H 07/30/19 09:02 Pulse Rate 85 07/30/19 09:02 Respiratory Rate 21 H 07/30/19 09:02 Blood Pressure 141/51 L 07/30/19 09:02 O2 Sat by Pulse Oximetry (%) 100 07/29/19 21:00 Eyes: Yes: WNL, Conjunctiva Clear, EOM Intact HENT: Yes: WNL, Atraumatic, Normocephalic Neck: Yes: WNL, Supple, Trachea Midline Cardiovascular: Yes: WNL, Regular Rate and Rhythm Respiratory: Yes: WNL, Regular, CTA Bilaterally Gastrointestinal: Yes: WNL, Normal Bowel Sounds Genitourinary: Yes: WNL Musculoskeletal: Yes: WNL Extremities: Yes: WNL Edema: No Integumentary: Yes: WNL Labs: CBC, BMP 07/28/19 06:05 07/28/19 14:40 INR, PTT INR 0.96 (0.83-1.09) 07/06/19 21:40 Assessment/Plan - Problems (1) Diastolic CHF Assessment/Plan: On HCTZ due to rales, tachypnea; can increase dose for 24-48 hours. F/u BUN/Cr, electrolytes (being repleted), daily weight, Is and Os. Code(s): I50.30 - UNSPECIFIED DIASTOLIC (CONGESTIVE) HEART FAILURE (2) CVA (cerebral vascular accident) Code(s): I63.9 - CEREBRAL INFARCTION, UNSPECIFIED (3) Hypokalemia Assessment/Plan: Repleted K+, f/u in am, and keep 4-4.5 (on HCTZ). Repleted Mg2+, and keep 2-2.4 Keep PO4 2.5-4.9 Code(s): E87.6 - HYPOKALEMIA (4) Leukocytosis Code(s): D72.829 - ELEVATED WHITE BLOOD CELL COUNT, UNSPECIFIED (5) Respiratory failure Code(s): J96.90 - RESPIRATORY FAILURE, UNSP, UNSP W HYPOXIA OR HYPERCAPNIA (6) Alzheimer's dementia Code(s): G30.9 - ALZHEIMER'S DISEASE, UNSPECIFIED; F02.80 - DEMENTIA IN OTH DISEASES CLASSD ELSWHR W/O BEHAVRL DISTURB (7) HTN (hypertension) Code(s): I10 - ESSENTIAL (PRIMARY) HYPERTENSION (8) Tachycardia Assessment/Plan: multifactorial, including fever, dehydration. Presently improved; HR now in 80s- 90s bpm. EKG: NSR: nonspecific T wave changes. Repleted electrolytes; f/u levels. TSH 0.76 (in 2018). Code(s): R00.0 - TACHYCARDIA, UNSPECIFIED (9) Hypoalbuminemia Assessment/Plan: portends poor prognosis. F/u nutritional status. Code(s): E88.09 - OTH DISORDERS OF PLASMA-PROTEIN METABOLISM, NEC (10) Parkinsons Assessment/Plan: on levocarbidopa Code(s): G20 - PARKINSON'S DISEASE (11) Kyphoscoliosis Code(s): M41.9 - SCOLIOSIS, UNSPECIFIED
[2019-07-30] MEDS: FOSPHENYTOIN SODIUM 100 MG/2 ML VIAL IVPB SCH ×2 (11:31→21:26)
--- NOTE | 2019-07-30 15:49 | PN ---
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, Physician History of Present Illness: pulmonary sleeping ,no distress,less tremors - Current Medication List Current Medications: Active Medications Acetaminophen (Tylenol Oral Solution -) 650 mg NGT Q6H PRN PRN Reason: FEVER Last Admin: 07/30/19 10:19 Dose: 650 mg Carbidopa/Levodopa (Sinemet 25/100 -) 1 each NGT BID [facility] Last Admin: 07/30/19 10:19 Dose: 1 each Donepezil HCl (Aricept -) 10 mg NGT DAILY [facility] Last Admin: 07/30/19 10:20 Dose: 10 mg Fosphenytoin Sodium (Cerebyx -) 100 mg IVPB BID [facility] Last Admin: 07/30/19 11:31 Dose: 100 mg Heparin Sodium (Porcine) (Heparin -) 5,000 unit SQ TID [facility] Last Admin: 07/30/19 14:50 Dose: 5,000 unit Hydrochlorothiazide (Hctz -) 25 mg NGT DAILY [facility] Last Admin: 07/30/19 10:19 Dose: 25 mg Levetiracetam (Keppra -) 500 mg PO BID [facility] Last Admin: 07/30/19 10:19 Dose: 500 mg Valproate Sodium (Depacon Injection -) 750 mg IVPB BID [facility] Last Admin: 07/30/19 10:20 Dose: 750 mg - Objective Vital Signs: Vital Signs Temperature 98.8 F 07/30/19 15:06 Pulse Rate 76 07/30/19 15:06 Respiratory Rate 20 07/30/19 15:06 Blood Pressure 159/75 07/30/19 15:06 O2 Sat by Pulse Oximetry (%) 100 07/29/19 21:00 Constitutional: Yes: Well Nourished, Other (sleeping) Eyes: Yes: WNL HENT: Yes: WNL Neck: Yes: WNL Cardiovascular: Yes: Regular Rate and Rhythm, S1, S2 Respiratory: Yes: Diminished Gastrointestinal: Yes: Normal Bowel Sounds, Soft Extremities: Yes: WNL Edema: No Labs: CBC, BMP 07/28/19 06:05 07/28/19 14:40 INR, PTT INR 0.96 (0.83-1.09) 07/06/19 21:40 Problem List - Problems (1) Acute respiratory distress Code(s): R06.03 - ACUTE RESPIRATORY DISTRESS (2) CVA (cerebral vascular accident) Code(s): I63.9 - CEREBRAL INFARCTION, UNSPECIFIED (3) Respiratory failure Code(s): J96.90 - RESPIRATORY FAILURE, UNSP, UNSP W HYPOXIA OR HYPERCAPNIA (4) Status epilepticus Code(s): G40.901 - EPILEPSY, UNSP, NOT INTRACTABLE, WITH STATUS EPILEPTICUS (5) Alzheimer's dementia Code(s): G30.9 - ALZHEIMER'S DISEASE, UNSPECIFIED; F02.80 - DEMENTIA IN OTH DISEASES CLASSD ELSWHR W/O BEHAVRL DISTURB (6) HLD (hyperlipidemia) Code(s): E78.5 - HYPERLIPIDEMIA, UNSPECIFIED (7) HTN (hypertension) Code(s): I10 - ESSENTIAL (PRIMARY) HYPERTENSION (8) Seizure disorder Code(s): G40.909 - EPILEPSY, UNSP, NOT INTRACTABLE, WITHOUT STATUS EPILEPTICUS (9) Acute respiratory failure Code(s): J96.00 - ACUTE RESPIRATORY FAILURE, UNSP W HYPOXIA OR HYPERCAPNIA Assessment/Plan A/P s/p Acute Respiratory Failure Breakthrough Seizure r/o Pneumonia Seizure Disorder +Troponins likely Demand Ischemia h/o CVA Parkinsons Dementia HTN - antiepileptics as per neuro - O2 as needed - DVT prophylaxis DR MAC
--- NOTE | 2019-07-30 23:23 | PN ---
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, Physician - Current Medication List Current Medications: Active Medications Acetaminophen (Tylenol Oral Solution -) 650 mg NGT Q6H PRN PRN Reason: FEVER Last Admin: 07/30/19 10:19 Dose: 650 mg Carbidopa/Levodopa (Sinemet 25/100 -) 1 each NGT BID [facility] Last Admin: 07/30/19 21:25 Dose: 1 each Donepezil HCl (Aricept -) 10 mg NGT DAILY [facility] Last Admin: 07/30/19 10:20 Dose: 10 mg Fosphenytoin Sodium (Cerebyx -) 100 mg IVPB BID [facility] Last Admin: 07/30/19 21:26 Dose: 100 mg Heparin Sodium (Porcine) (Heparin -) 5,000 unit SQ TID [facility] Last Admin: 07/30/19 21:25 Dose: 5,000 unit Hydrochlorothiazide (Hctz -) 25 mg NGT DAILY [facility] Last Admin: 07/30/19 10:19 Dose: 25 mg Levetiracetam (Keppra -) 500 mg PO BID [facility] Last Admin: 07/30/19 21:25 Dose: 500 mg Valproate Sodium (Depacon Injection -) 750 mg IVPB BID [facility] Last Admin: 07/30/19 21:24 Dose: 750 mg - Objective Vital Signs: Vital Signs Temperature 98.8 F 07/30/19 15:06 Pulse Rate 76 07/30/19 15:06 Respiratory Rate 20 07/30/19 15:06 Blood Pressure 159/75 07/30/19 15:06 O2 Sat by Pulse Oximetry (%) 98 07/30/19 22:00 Labs: CBC, BMP 07/28/19 06:05 07/28/19 14:40 INR, PTT INR 0.96 (0.83-1.09) 07/06/19 21:40 Problem List - Problems (1) Seizure disorder Code(s): G40.909 - EPILEPSY, UNSP, NOT INTRACTABLE, WITHOUT STATUS EPILEPTICUS (2) HTN (hypertension) Code(s): I10 - ESSENTIAL (PRIMARY) HYPERTENSION (3) Parkinsons Code(s): G20 - PARKINSON'S DISEASE (4) Dementia Code(s): F03.90 - UNSPECIFIED DEMENTIA WITHOUT BEHAVIORAL DISTURBANCE (5) Acute respiratory distress Code(s): R06.03 - ACUTE RESPIRATORY DISTRESS
[2019-07-31] MEDS: HEPARIN NA (PORCINE) 5,000 UNITS/ML 1ML VIAL SQ SCH ×3 (05:54→21:32)
[2019-07-31] MEDS ORDERED: PT OWN MED DRAWER 7, Y5N ONE ×2 (09:23→21:03)
[2019-07-31] MEDS: levETIRAcetam 500 MG TABLET (FP) PO SCH ×2 (09:33→21:31)
[2019-07-31] MEDS: HYDROCHLOROTHIAZIDE 25 MG TABLET (FP) NGT SCH (09:33)
[2019-07-31] MEDS: CARBIDOPA/LEVODOPA 25/100 TABLET (FP) NGT SCH ×2 (09:33→21:32)
[2019-07-31] MEDS: DONEPEZIL HCL 10 MG TABLET (FP) NGT SCH (09:33)
[2019-07-31] MEDS: FOSPHENYTOIN SODIUM 100 MG/2 ML VIAL IVPB SCH ×2 (09:37→21:30)
[2019-07-31] MEDS: VALPROATE SODIUM 500 MG/5 ML VIAL IVPB SCH ×2 (10:09→21:30)
--- NOTE | 2019-07-31 21:42 | PN ---
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, Physician - Current Medication List Current Medications: Active Medications Acetaminophen (Tylenol Oral Solution -) 650 mg NGT Q6H PRN PRN Reason: FEVER Last Admin: 07/30/19 10:19 Dose: 650 mg Carbidopa/Levodopa (Sinemet 25/100 -) 1 each NGT BID [facility] Last Admin: 07/31/19 21:32 Dose: 1 each Donepezil HCl (Aricept -) 10 mg NGT DAILY [facility] Last Admin: 07/31/19 09:33 Dose: 10 mg Fosphenytoin Sodium (Cerebyx -) 100 mg IVPB BID [facility] Last Admin: 07/31/19 21:30 Dose: 100 mg Heparin Sodium (Porcine) (Heparin -) 5,000 unit SQ TID [facility] Last Admin: 07/31/19 21:32 Dose: 5,000 unit Hydrochlorothiazide (Hctz -) 25 mg NGT DAILY [facility] Last Admin: 07/31/19 09:33 Dose: 25 mg Levetiracetam (Keppra -) 500 mg PO BID [facility] Last Admin: 07/31/19 21:31 Dose: 500 mg Valproate Sodium (Depacon Injection -) 750 mg IVPB BID [facility] Last Admin: 07/31/19 21:30 Dose: 750 mg - Objective Vital Signs: Vital Signs Temperature 98.0 F 07/31/19 08:03 Pulse Rate 75 07/31/19 08:03 Respiratory Rate 15 07/31/19 08:03 Blood Pressure 150/70 07/31/19 08:03 O2 Sat by Pulse Oximetry (%) 98 07/31/19 10:00 Labs: CBC, BMP 07/28/19 06:05 07/28/19 14:40 INR, PTT INR 0.96 (0.83-1.09) 07/06/19 21:40 Problem List - Problems (1) Seizure disorder Code(s): G40.909 - EPILEPSY, UNSP, NOT INTRACTABLE, WITHOUT STATUS EPILEPTICUS (2) HTN (hypertension) Code(s): I10 - ESSENTIAL (PRIMARY) HYPERTENSION (3) Parkinsons Code(s): G20 - PARKINSON'S DISEASE (4) Dementia Code(s): F03.90 - UNSPECIFIED DEMENTIA WITHOUT BEHAVIORAL DISTURBANCE (5) Acute respiratory distress Code(s): R06.03 - ACUTE RESPIRATORY DISTRESS
[2019-08-01] MEDS: HEPARIN NA (PORCINE) 5,000 UNITS/ML 1ML VIAL SQ SCH ×2 (05:48→13:52)
[2019-08-01 08:36] LABS: BASO % 0.6 % (0-2.0); EOS % 1.3 % (0-4.5); HEMATOCRIT 29.5 % (32.4-45.2); HEMOGLOBIN 9.9 GM/dL (10.7-15.3); LYMPH % 9.9 % (8-40); MCH 31.3 pg (25.7-33.7); MCHC 33.5 g/dl (32.0-36.0); MEAN CELL VOLUME 93.5 fl (80-96); MEAN PLT VOLUME 8.6 fl (7.5-11.1); MONO % 8.1 % (3.8-10.2); NEUT % 80.1 % (42.8-82.8); PLATELET COUNT 519 K/MM3 (134-434); RBC 3.15 M/mm3 (3.60-5.2); RDW 17.3 % (11.6-15.6); WHITE BLOOD COUNT 7.6 K/mm3 (4.0-10.0)
[2019-08-01 08:56] LABS: ALBUMIN 1.8 g/dl (3.4-5.0); BILIRUBIN,TOTAL 0.4 mg/dL (0.2-1); BLOOD UREA NITROGEN 7.9 mg/dL (7-18); CALCIUM 8.4 mg/dL (8.5-10.1); CREATININE 0.5 mg/dL (0.55-1.3); TOT PROT 5.4 g/dl (6.4-8.2)
[2019-08-01 09:03] LABS: POTASSIUM 2.9 mmol/L (3.5-5.1)
[2019-08-01] MEDS: KCL 10 MEQ IVPB 10 MEQ/100 ML INFUS.BAG IVPB SCH ×3 (10:02→13:52)
[2019-08-01] MEDS: DONEPEZIL HCL 10 MG TABLET (FP) NGT SCH (10:02)
[2019-08-01] MEDS: CARBIDOPA/LEVODOPA 25/100 TABLET (FP) NGT SCH ×2 (10:02→22:28)
[2019-08-01] MEDS: HYDROCHLOROTHIAZIDE 25 MG TABLET (FP) NGT SCH (10:02)
[2019-08-01] MEDS: levETIRAcetam 500 MG TABLET (FP) PO SCH ×2 (10:02→22:28)
[2019-08-01] MEDS: FOSPHENYTOIN SODIUM 100 MG/2 ML VIAL IVPB SCH ×2 (11:05→22:28)
[2019-08-01] MEDS: VALPROATE SODIUM 500 MG/5 ML VIAL IVPB SCH ×2 (11:05→22:28)
--- NOTE | 2019-08-01 20:13 | PN ---
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, Physician History of Present Illness: NGT was replaced - Current Medication List Current Medications: Active Medications Acetaminophen (Tylenol Oral Solution -) 650 mg NGT Q6H PRN PRN Reason: FEVER Last Admin: 07/30/19 10:19 Dose: 650 mg Carbidopa/Levodopa (Sinemet 25/100 -) 1 each NGT BID [facility] Last Admin: 08/01/19 10:02 Dose: 1 each Donepezil HCl (Aricept -) 10 mg NGT DAILY [facility] Last Admin: 08/01/19 10:02 Dose: 10 mg Fosphenytoin Sodium (Cerebyx -) 100 mg IVPB BID [facility] Last Admin: 08/01/19 11:05 Dose: 100 mg Hydrochlorothiazide (Hctz -) 25 mg NGT DAILY [facility] Last Admin: 08/01/19 10:02 Dose: 25 mg Levetiracetam (Keppra -) 500 mg PO BID [facility] Last Admin: 08/01/19 10:02 Dose: 500 mg Valproate Sodium (Depacon Injection -) 750 mg IVPB BID [facility] Last Admin: 08/01/19 11:05 Dose: 750 mg - Objective Vital Signs: Vital Signs Temperature 99.1 F 08/01/19 15:02 Pulse Rate 87 08/01/19 15:02 Respiratory Rate 16 08/01/19 09:00 Blood Pressure 161/77 08/01/19 15:02 O2 Sat by Pulse Oximetry (%) 98 08/01/19 09:00 Neck: Yes: WNL, Supple Cardiovascular: Yes: WNL, Regular Rate and Rhythm Respiratory: Yes: WNL, Regular, CTA Bilaterally Gastrointestinal: Yes: WNL, Normal Bowel Sounds, Soft Labs: CBC, BMP 08/01/19 07:22 08/01/19 07:22 INR, PTT INR 0.96 (0.83-1.09) 07/06/19 21:40 Problem List - Problems (1) Seizure disorder Assessment/Plan: Cont keppra/phenytoin/valproate Repeat CT scan head did not show any acute pathology GI consult noted and family to discuss about IR placing feeding tube Will speak to family in am about IR pacing feeding tube Code(s): G40.909 - EPILEPSY, UNSP, NOT INTRACTABLE, WITHOUT STATUS EPILEPTICUS (2) HTN (hypertension) Assessment/Plan: BP stable Cont HCtz Code(s): I10 - ESSENTIAL (PRIMARY) HYPERTENSION (3) Parkinsons Assessment/Plan: Cont sinemet Code(s): G20 - PARKINSON'S DISEASE (4) Dementia Assessment/Plan: Cont aricept Code(s): F03.90 - UNSPECIFIED DEMENTIA WITHOUT BEHAVIORAL DISTURBANCE (5) Acute respiratory distress Assessment/Plan: Resolved Antibxs dc'ed Code(s): R06.03 - ACUTE RESPIRATORY DISTRESS
[2019-08-02 07:42] LABS: ALBUMIN 1.7 g/dl (3.4-5.0); BILIRUBIN,TOTAL 0.2 mg/dL (0.2-1); BLOOD UREA NITROGEN 6.3 mg/dL (7-18); CALCIUM 8.2 mg/dL (8.5-10.1); CREATININE 0.4 mg/dL (0.55-1.3); POTASSIUM 3.3 mmol/L (3.5-5.1); TOT PROT 4.9 g/dl (6.4-8.2)
[2019-08-02 08:02] LABS: EOS % 2.7 % (0-4.5); HEMATOCRIT 27.1 % (32.4-45.2); HEMOGLOBIN 9.2 GM/dL (10.7-15.3); MCH 31.8 pg (25.7-33.7); MEAN CELL VOLUME 93.4 fl (80-96); MEAN PLT VOLUME 8.6 fl (7.5-11.1); MONO % 10.1 % (3.8-10.2); NEUT % 67.2 % (42.8-82.8); PLATELET COUNT 497 K/MM3 (134-434); RDW 17.3 % (11.6-15.6); WHITE BLOOD COUNT 5.5 K/mm3 (4.0-10.0)
--- NOTE | 2019-08-02 08:03 | PN ---
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 Initial presentation to hospital was , she initally noted to have left sided face droopiness followed by generalized tonic clonic seizure, she was brought to hospital and was intubated. Patient had ct head, which was no acute findings. Patient has not had any episode of seizure and eeg is pending. No more seizure. - Current Medication List Current Medications: Active Medications Acetaminophen (Tylenol Oral Solution -) 650 mg NGT Q6H PRN PRN Reason: FEVER Last Admin: 07/30/19 10:19 Dose: 650 mg Carbidopa/Levodopa (Sinemet 25/100 -) 1 each NGT BID [facility] Last Admin: 08/01/19 22:28 Dose: 1 each Donepezil HCl (Aricept -) 10 mg NGT DAILY [facility] Last Admin: 08/01/19 10:02 Dose: 10 mg Fosphenytoin Sodium (Cerebyx -) 100 mg IVPB BID [facility] Last Admin: 08/01/19 22:28 Dose: 100 mg Hydrochlorothiazide (Hctz -) 25 mg NGT DAILY [facility] Last Admin: 08/01/19 10:02 Dose: 25 mg Levetiracetam (Keppra -) 500 mg PO BID [facility] Last Admin: 08/01/19 22:28 Dose: 500 mg Valproate Sodium (Depacon Injection -) 750 mg IVPB BID [facility] Last Admin: 08/01/19 22:28 Dose: 750 mg - Objective Vital Signs: Vital Signs Temperature 98.9 F 08/01/19 23:00 Pulse Rate 79 08/01/19 23:00 Respiratory Rate 19 08/01/19 23:00 Blood Pressure 139/60 08/01/19 23:00 O2 Sat by Pulse Oximetry (%) 98 08/01/19 09:00 Eyes: Yes: WNL, Conjunctiva Clear, EOM Intact HENT: Yes: WNL, Atraumatic, Normocephalic Neck: Yes: WNL, Supple, Trachea Midline Cardiovascular: Yes: WNL, Regular Rate and Rhythm Respiratory: Yes: WNL, Regular, CTA Bilaterally Gastrointestinal: Yes: WNL, Normal Bowel Sounds Genitourinary: Yes: WNL Musculoskeletal: Yes: WNL Extremities: Yes: WNL Edema: No Integumentary: Yes: WNL ...Motor Strength: WNL Psychiatric: Yes: WNL Labs: CBC, BMP 08/02/19 06:15 INR, PTT INR 0.96 (0.83-1.09) 07/06/19 21:40 Assessment/Plan - Problems (1) Diastolic CHF Assessment/Plan: On HCTZ due to rales, tachypnea; can increase dose for 24-48 hours. F/u BUN/Cr, electrolytes (being repleted), daily weight, Is and Os. Code(s): I50.30 - UNSPECIFIED DIASTOLIC (CONGESTIVE) HEART FAILURE (2) CVA (cerebral vascular accident) Code(s): I63.9 - CEREBRAL INFARCTION, UNSPECIFIED (3) Hypokalemia Assessment/Plan: Repleted K+, f/u in am, and keep 4-4.5 (on HCTZ). Repleted Mg2+, and keep 2-2.4 Keep PO4 2.5-4.9 Code(s): E87.6 - HYPOKALEMIA (4) Leukocytosis Code(s): D72.829 - ELEVATED WHITE BLOOD CELL COUNT, UNSPECIFIED (5) Respiratory failure Code(s): J96.90 - RESPIRATORY FAILURE, UNSP, UNSP W HYPOXIA OR HYPERCAPNIA (6) Alzheimer's dementia Code(s): G30.9 - ALZHEIMER'S DISEASE, UNSPECIFIED; F02.80 - DEMENTIA IN OTH DISEASES CLASSD ELSWHR W/O BEHAVRL DISTURB (7) HTN (hypertension) Code(s): I10 - ESSENTIAL (PRIMARY) HYPERTENSION (8) Tachycardia Assessment/Plan: multifactorial, including fever, dehydration. Presently improved; HR now in 80s- 90s bpm. EKG: NSR: nonspecific T wave changes. Repleted electrolytes; f/u levels. TSH 0.76 (in 2018). Code(s): R00.0 - TACHYCARDIA, UNSPECIFIED (9) Hypoalbuminemia Assessment/Plan: portends poor prognosis. F/u nutritional status. Code(s): E88.09 - OTH DISORDERS OF PLASMA-PROTEIN METABOLISM, NEC (10) Parkinsons Assessment/Plan: on levocarbidopa Code(s): G20 - PARKINSON'S DISEASE (11) Kyphoscoliosis Code(s): M41.9 - SCOLIOSIS, UNSPECIFIED
[2019-08-02] MEDS ORDERED: PT OWN MED DRAWER 7, Y5N ONE ×2 (08:48→12:06)
[2019-08-02] MEDS: FOSPHENYTOIN SODIUM 100 MG/2 ML VIAL IVPB SCH ×2 (09:01→21:00)
[2019-08-02] MEDS ORDERED: LORazepam 2 MG/ML SDV VIAL IVPUSH PRN (12:03)
[2019-08-02] MEDS: KCL 10 MEQ IVPB 10 MEQ/100 ML INFUS.BAG IVPB SCH ×3 (12:11→17:51)
[2019-08-02] MEDS: VALPROATE SODIUM 500 MG/5 ML VIAL IVPB SCH ×2 (12:12→22:00)
--- NOTE | 2019-08-02 12:18 | PN ---
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 (short form) - Note 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: PULMONARY Seizure activity noted with rhythmic movements of head. Vital Signs Period Temp Pulse Resp BP Sys/Rowland Pulse Ox Last 24 Hr 97.5 F-99.7 F 72-92 18-21 139-161/60-77 Gen: seizure activity Heart: RRR Lung: scattered rhonchi Abd: soft, nontender Ext: no edema CBC, BMP 08/02/19 06:15 08/02/19 06:15 Active Medications Acetaminophen (Tylenol Oral Solution -) 650 mg NGT Q6H PRN PRN Reason: FEVER Last Admin: 07/30/19 10:19 Dose: 650 mg Carbidopa/Levodopa (Sinemet 25/100 -) 1 each NGT BID [facility] Last Admin: 08/01/19 22:28 Dose: 1 each Donepezil HCl (Aricept -) 10 mg NGT DAILY [facility] Last Admin: 08/01/19 10:02 Dose: 10 mg Fosphenytoin Sodium (Cerebyx -) 100 mg IVPB BID [facility] Last Admin: 08/02/19 09:01 Dose: 100 mg Hydrochlorothiazide (Hctz -) 25 mg NGT DAILY [facility] Last Admin: 08/01/19 10:02 Dose: 25 mg Potassium Chloride (Potassium Chloride 10 Meq Premix Ivpb -) 10 meq in 100 mls @ 100 mls/hr IVPB Q60M [facility] Stop: 08/02/19 14:29 Last Admin: 08/02/19 12:11 Dose: 100 mls/hr Levetiracetam (Keppra -) 500 mg PO BID [facility] Last Admin: 08/01/19 22:28 Dose: 500 mg Lorazepam (Ativan Injection -) 2 mg IVPUSH Q4H PRN PRN Reason: Seizure Last Admin: 08/02/19 12:12 Dose: 2 mg Valproate Sodium (Depacon Injection -) 750 mg IVPB BID [facility] Last Admin: 08/02/19 12:12 Dose: 750 mg A/P s/p Acute Respiratory Failure Breakthrough Seizure r/o Pneumonia treated Seizure Disorder +Troponins likely Demand Ischemia h/o CVA Parkinsons Dementia HTN - ordered ativan PRN - titrate antiepileptics - aspiration precautions - DVT prophylaxis - continue discussions regarding goals of care
[2019-08-02] MEDS: levETIRAcetam 500 MG TABLET (FP) PO SCH ×2 (17:43→22:25)
[2019-08-02] MEDS: CARBIDOPA/LEVODOPA 25/100 TABLET (FP) NGT SCH ×2 (17:44→22:25)
[2019-08-02] MEDS: DONEPEZIL HCL 10 MG TABLET (FP) NGT SCH (18:41)
[2019-08-02] MEDS: HYDROCHLOROTHIAZIDE 25 MG TABLET (FP) NGT SCH (18:41)
[2019-08-02] MEDS: ACETAMINOPHEN 650 MG/20.3 ML ORAL SOLUTION (CUPS) NGT PRN (18:42)
--- NOTE | 2019-08-03 07:28 | PN ---
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, Physician History of Present Illness: Pt seen and examined 08/02/19 however note is being entered now - Current Medication List Current Medications: Active Medications Acetaminophen (Tylenol Oral Solution -) 650 mg NGT Q6H PRN PRN Reason: FEVER Last Admin: 08/02/19 18:42 Dose: 650 mg Carbidopa/Levodopa (Sinemet 25/100 -) 1 each NGT BID [facility] Last Admin: 08/02/19 22:25 Dose: 1 each Donepezil HCl (Aricept -) 10 mg NGT DAILY [facility] Last Admin: 08/02/19 18:41 Dose: 10 mg Fosphenytoin Sodium (Cerebyx -) 100 mg IVPB BID [facility] Last Admin: 08/02/19 21:00 Dose: 100 mg Hydrochlorothiazide (Hctz -) 25 mg NGT DAILY [facility] Last Admin: 08/02/19 18:41 Dose: 25 mg Levetiracetam (Keppra -) 500 mg PO BID [facility] Last Admin: 08/02/19 22:25 Dose: 500 mg Lorazepam (Ativan Injection -) 2 mg IVPUSH Q4H PRN PRN Reason: Seizure Last Admin: 08/02/19 12:12 Dose: 2 mg Valproate Sodium (Depacon Injection -) 750 mg IVPB BID [facility] Last Admin: 08/02/19 22:00 Dose: 750 mg - Objective Vital Signs: Vital Signs Temperature 98.9 F 08/03/19 05:39 Pulse Rate 77 08/03/19 05:39 Respiratory Rate 21 H 08/03/19 05:39 Blood Pressure 129/57 L 08/03/19 05:39 O2 Sat by Pulse Oximetry (%) 97 08/02/19 21:00 Labs: CBC, BMP 08/02/19 06:15 08/02/19 06:15 INR, PTT INR 0.96 (0.83-1.09) 07/06/19 21:40 Problem List - Problems (1) Seizure disorder Code(s): G40.909 - EPILEPSY, UNSP, NOT INTRACTABLE, WITHOUT STATUS EPILEPTICUS (2) HTN (hypertension) Code(s): I10 - ESSENTIAL (PRIMARY) HYPERTENSION (3) Parkinsons Code(s): G20 - PARKINSON'S DISEASE (4) Dementia Code(s): F03.90 - UNSPECIFIED DEMENTIA WITHOUT BEHAVIORAL DISTURBANCE (5) Acute respiratory distress Code(s): R06.03 - ACUTE RESPIRATORY DISTRESS
[2019-08-03] MEDS ORDERED: PT OWN MED DRAWER 7, Y5N ONE ×2 (08:53→22:10)
[2019-08-03] MEDS: ACETAMINOPHEN 650 MG/20.3 ML ORAL SOLUTION (CUPS) NGT PRN ×2 (09:09→17:14)
[2019-08-03] MEDS: HYDROCHLOROTHIAZIDE 25 MG TABLET (FP) NGT SCH (09:10)
[2019-08-03] MEDS: DONEPEZIL HCL 10 MG TABLET (FP) NGT SCH (09:10)
[2019-08-03] MEDS: FOSPHENYTOIN SODIUM 100 MG/2 ML VIAL IVPB SCH ×2 (09:10→22:23)
[2019-08-03] MEDS: levETIRAcetam 500 MG TABLET (FP) PO SCH ×2 (09:10→22:22)
[2019-08-03] MEDS: CARBIDOPA/LEVODOPA 25/100 TABLET (FP) NGT SCH ×2 (09:10→22:22)
[2019-08-03] MEDS: VALPROATE SODIUM 500 MG/5 ML VIAL IVPB SCH ×2 (10:57→22:24)
--- NOTE | 2019-08-03 11:20 | PN ---
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 (short form) - Note 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: PULMONARY No further seizure activity noted. Febrile this AM to 103 with tachycardia and tachypnea. Enteral feeds stopped with improvement. Vital Signs Period Temp Pulse Resp BP Sys/Rowland Pulse Ox Last 24 Hr 97.5 F-103.0 F 76-127 20-24 128-164/57-89 97 Gen: NAD at rest Heart: RRR Lung: scattered rhonchi Abd: soft, nontender Ext: no edema CBC, BMP 08/02/19 06:15 08/02/19 06:15 Active Medications Acetaminophen (Tylenol Oral Solution -) 650 mg NGT Q6H PRN PRN Reason: FEVER Last Admin: 08/03/19 09:09 Dose: 650 mg Carbidopa/Levodopa (Sinemet 25/100 -) 1 each NGT BID [facility] Last Admin: 08/03/19 09:10 Dose: 1 each Donepezil HCl (Aricept -) 10 mg NGT DAILY [facility] Last Admin: 08/03/19 09:10 Dose: 10 mg Fosphenytoin Sodium (Cerebyx -) 100 mg IVPB BID [facility] Last Admin: 08/03/19 09:10 Dose: 100 mg Hydrochlorothiazide (Hctz -) 25 mg NGT DAILY [facility] Last Admin: 08/03/19 09:10 Dose: 25 mg Levetiracetam (Keppra -) 500 mg PO BID [facility] Last Admin: 08/03/19 09:10 Dose: 500 mg Lorazepam (Ativan Injection -) 2 mg IVPUSH Q4H PRN PRN Reason: Seizure Last Admin: 08/02/19 12:12 Dose: 2 mg Valproate Sodium (Depacon Injection -) 750 mg IVPB BID [facility] Last Admin: 08/03/19 10:57 Dose: 750 mg A/P s/p Acute Respiratory Failure Breakthrough Seizure r/o Pneumonia treated Seizure Disorder +Troponins likely Demand Ischemia h/o CVA Parkinsons Dementia HTN - repeat cultures, CXR - ativan PRN - continue antiepileptics - aspiration precautions - DVT prophylaxis - continue discussions regarding goals of care, recommend palliative care
--- NOTE | 2019-08-03 12:27 | PN ---
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 (short form) - Note 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: Called by nurse that patient wants feeding tube placed. Advised her to discuss with PMD and have IR consult placed for gastrostomy
[2019-08-03] MEDS: HEPARIN NA (PORCINE) 5,000 UNITS/ML 1ML VIAL SQ SCH ×2 (13:03→22:27)
[2019-08-03 13:55] LABS: BASO % 0.2 % (0-2.0); EOS % 0.2 % (0-4.5); HEMATOCRIT 27.2 % (32.4-45.2); HEMOGLOBIN 8.8 GM/dL (10.7-15.3); LYMPH % 3.9 % (8-40); MCH 30.5 pg (25.7-33.7); MCHC 32.4 g/dl (32.0-36.0); MEAN CELL VOLUME 93.9 fl (80-96); MONO % 6.6 % (3.8-10.2); NEUT % 89.1 % (42.8-82.8); PLATELET COUNT 477 K/MM3 (134-434); RBC 2.89 M/mm3 (3.60-5.2); RDW 16.6 % (11.6-15.6); WHITE BLOOD COUNT 15.7 K/mm3 (4.0-10.0)
[2019-08-03 14:21] LABS: ALBUMIN 1.8 g/dl (3.4-5.0); BILIRUBIN,TOTAL 0.5 mg/dL (0.2-1); BLOOD UREA NITROGEN 8.6 mg/dL (7-18); CALCIUM 8.2 mg/dL (8.5-10.1); CREATININE 0.6 mg/dL (0.55-1.3); POTASSIUM 3.2 mmol/L (3.5-5.1); TOT PROT 5.2 g/dl (6.4-8.2)
[2019-08-03] MEDS ORDERED: PIPERACILLIN/TAZOB 3.375 GM 3.375 GM in DEXTROSE 5%-WATER - 50 ML IVPB SCH ×2 (16:15→18:00)
[2019-08-03] MEDS ORDERED: PIPERACILLIN/TAZOBACTAM 3.375 GM VIAL IVPB ONE (16:57)
[2019-08-03] MEDS ORDERED: DEXTROSE 5%-WATER - 50 ML IVPB ONE (16:57)
--- NOTE | 2019-08-03 17:24 | PN ---
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 (short form) - Note 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: asked to see for fever chart removed has been having intermittent seizures has been getting feeds via ngt moist cough not responsive Vital Signs Period Temp Pulse Resp BP Sys/Rowland Pulse Ox Last 24 Hr 98.1 F-103.0 F 76-127 20-24 129-164/57-89 97-97 cor-rrr lungs bilateral rhonchi, decreased bs left lung abd soft,nt ext no edema no skin breakdown no phlebitis CBC, BMP 08/03/19 13:30 08/03/19 13:30 Microbiology 07/22/19 12:30 Urine - Urine - Catheterized Urine Culture - Final Vr Ec Faecium 07/19/19 09:30 Blood - Peripheral Venous Blood Culture - Final NO GROWTH AFTER 5 DAYS INCUBATION 07/19/19 09:40 Blood - Peripheral Venous Blood Culture - Final NO GROWTH AFTER 5 DAYS INCUBATION 07/17/19 06:45 Urine - Urine Torrez Urine Culture - Final NO GROWTH OBTAINED 07/06/19 11:57 Blood - Peripheral Venous Blood Culture - Final NO GROWTH AFTER 5 DAYS INCUBATION 07/06/19 21:42 Blood - Peripheral Venous Blood Culture - Final NO GROWTH AFTER 5 DAYS INCUBATION 07/08/19 17:45 Urine For Antigen Detection Legionella Antigen - Final 07/08/19 17:45 Urine For Antigen Detection Streptococcus pneumoniae Antigen (M - Final 07/07/19 11:00 Sputum - Endotrachea Suction/Ventilator Gram Stain - Final 07/07/19 11:00 Sputum - Endotrachea Suction/Ventilator Sputum Culture - Final NORMAL RESPIRATORY JULIO 07/06/19 21:40 Urine - Urine Torrez Urine Culture - Final NO GROWTH OBTAINED cxray-increasing left hemithroax infiltrate/effusion a/p fevers-possible aspiration history of seizure s/p respiratory failure history of parkinsons disease agree with cultures start zosyn vanco one dose Problem List - Problems (1) Seizure disorder Code(s): G40.909 - EPILEPSY, UNSP, NOT INTRACTABLE, WITHOUT STATUS EPILEPTICUS (2) CVA (cerebral vascular accident) Code(s): I63.9 - CEREBRAL INFARCTION, UNSPECIFIED (3) Leukocytosis Code(s): D72.829 - ELEVATED WHITE BLOOD CELL COUNT, UNSPECIFIED (4) Aspiration pneumonia Code(s): J69.0 - PNEUMONITIS DUE TO INHALATION OF FOOD AND VOMIT (5) Respiratory failure Code(s): J96.90 - RESPIRATORY FAILURE, UNSP, UNSP W HYPOXIA OR HYPERCAPNIA
[2019-08-03] MEDS ORDERED: VANCOMYCIN 1 GRAM (PRE-DOCKED) 1,000 MG/250 ML BAG IVPB ONE (17:26)
[2019-08-03] MEDS: PIPERACILLIN/TAZOB 4.5 GM 4.5 GM in DEXTROSE 5%-WATER 100 ML IVPB SCH (17:45)
[2019-08-03 18:16] LABS: EPI CELLS 1.3 /HPF (0-5/HPF); HYALINE CASTS 9 /lpf (0-8); URINE APPEARANCE CLEAR; URINE BACTERIA 8.8 /hpf (NEGATIVE); URINE BILIRUBIN NEGATIVE (NEGATIVE); URINE COLOR YELLOW; URINE GLUCOSE (UA) NEGATIVE (NEGATIVE); URINE KETONE NEGATIVE (NEGATIVE); URINE LEUK ESTERASE NEGATIVE (NEGATIVE); URINE NITRITE NEGATIVE (NEGATIVE); URINE PROTEIN 2+ (NEGATIVE); URINE RBC 4 /hpf (0-4); URINE UROBILINOGEN 0.2 mg/dL (0.2-1.0); URINE WBC 1 /hpf (0-5)
[2019-08-03] MEDS: KCL 10 MEQ IVPB 10 MEQ/100 ML INFUS.BAG IVPB SCH (22:08)
--- NOTE | 2019-08-03 23:17 | PN ---
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, Physician History of Present Illness: Pt spiked temp - Current Medication List Current Medications: Active Medications Acetaminophen (Tylenol Oral Solution -) 650 mg NGT Q6H PRN PRN Reason: FEVER Last Admin: 08/03/19 17:14 Dose: 650 mg Carbidopa/Levodopa (Sinemet 25/100 -) 1 each NGT BID [facility] Last Admin: 08/03/19 22:22 Dose: 1 each Donepezil HCl (Aricept -) 10 mg NGT DAILY [facility] Last Admin: 08/03/19 09:10 Dose: 10 mg Fosphenytoin Sodium (Cerebyx -) 100 mg IVPB BID [facility] Last Admin: 08/03/19 22:23 Dose: 100 mg Heparin Sodium (Porcine) (Heparin -) 5,000 unit SQ BID [facility] Last Admin: 08/03/19 22:27 Dose: 5,000 unit Hydrochlorothiazide (Hctz -) 25 mg NGT DAILY [facility] Last Admin: 08/03/19 09:10 Dose: 25 mg Piperacillin Sod/Tazobactam (Sod 4.5 gm/ Dextrose) 100 mls @ 200 mls/hr IVPB Q8H-IV [facility]; Protocol Last Admin: 08/03/19 17:45 Dose: Not Given Levetiracetam (Keppra -) 500 mg PO BID [facility] Last Admin: 08/03/19 22:22 Dose: 500 mg Lorazepam (Ativan Injection -) 2 mg IVPUSH Q4H PRN PRN Reason: Seizure Last Admin: 08/02/19 12:12 Dose: 2 mg Valproate Sodium (Depacon Injection -) 750 mg IVPB BID [facility] Last Admin: 08/03/19 22:24 Dose: 750 mg - Objective Vital Signs: Vital Signs Temperature 100.6 F H 08/03/19 22:44 Pulse Rate 99 H 08/03/19 22:44 Respiratory Rate 22 H 08/03/19 22:44 Blood Pressure 138/80 08/03/19 22:44 O2 Sat by Pulse Oximetry (%) 97 08/03/19 09:00 HENT: Yes: Other ((+) NGT) Neck: Yes: WNL, Supple Cardiovascular: Yes: Tachycardia Respiratory: Yes: Diminished Gastrointestinal: Yes: WNL, Normal Bowel Sounds, Soft Labs: CBC, BMP 08/03/19 13:30 08/03/19 13:30 INR, PTT INR 0.96 (0.83-1.09) 07/06/19 21:40 Problem List - Problems (1) Pneumonia Assessment/Plan: CXR showed rt infitrate/pleural effusions Elevated WBC Pancultured Started on IV zosyn ID consult Code(s): J18.9 - PNEUMONIA, UNSPECIFIED ORGANISM (2) Seizure disorder Assessment/Plan: Cont keppra/phenytoin/valproate Repeat CT scan head did not show any acute pathology GI consult noted and family to discuss about IR placing feeding tube At this point w/ infectious process will speak w/ IR about feeding tube placement Code(s): G40.909 - EPILEPSY, UNSP, NOT INTRACTABLE, WITHOUT STATUS EPILEPTICUS (3) HTN (hypertension) Assessment/Plan: BP stable Cont HCtz Code(s): I10 - ESSENTIAL (PRIMARY) HYPERTENSION (4) Parkinsons Assessment/Plan: Cont sinemet Code(s): G20 - PARKINSON'S DISEASE (5) Dementia Assessment/Plan: Cont aricept Code(s): F03.90 - UNSPECIFIED DEMENTIA WITHOUT BEHAVIORAL DISTURBANCE (6) Acute respiratory distress Assessment/Plan: Resolved Antibxs dc'ed Code(s): R06.03 - ACUTE RESPIRATORY DISTRESS
[2019-08-04] MEDS ORDERED: PIPERACILLIN/TAZOBACTAM 4.5 GM VIAL IVPB ONE ×3 (02:14→17:27)
[2019-08-04] MEDS ORDERED: DEXTROSE 5%-WATER 100 ML IVPB ONE ×3 (02:14→17:27)
[2019-08-04] MEDS: PIPERACILLIN/TAZOB 4.5 GM 4.5 GM in DEXTROSE 5%-WATER 100 ML IVPB SCH ×3 (02:16→18:19)
[2019-08-04] MEDS: KCL 10 MEQ IVPB 10 MEQ/100 ML INFUS.BAG IVPB SCH ×2 (07:29→07:30)
[2019-08-04 09:58] LABS: BASO % 0.6 % (0-2.0); HEMATOCRIT 22.8 % (32.4-45.2); HEMOGLOBIN 7.7 GM/dL (10.7-15.3); LYMPH % 7.3 % (8-40); MCH 31.5 pg (25.7-33.7); MCHC 33.5 g/dl (32.0-36.0); MEAN CELL VOLUME 93.9 fl (80-96); MEAN PLT VOLUME 8.1 fl (7.5-11.1); MONO % 6.1 % (3.8-10.2); PLATELET COUNT 389 K/MM3 (134-434); RBC 2.43 M/mm3 (3.60-5.2); RDW 17.3 % (11.6-15.6); WHITE BLOOD COUNT 16.7 K/mm3 (4.0-10.0)
[2019-08-04] MEDS: VALPROATE SODIUM 500 MG/5 ML VIAL IVPB SCH ×2 (10:19→22:33)
[2019-08-04] MEDS: HYDROCHLOROTHIAZIDE 25 MG TABLET (FP) NGT SCH (10:20)
[2019-08-04] MEDS: DONEPEZIL HCL 10 MG TABLET (FP) NGT SCH (10:20)
[2019-08-04] MEDS: HEPARIN NA (PORCINE) 5,000 UNITS/ML 1ML VIAL SQ SCH ×2 (10:20→22:33)
[2019-08-04] MEDS: levETIRAcetam 500 MG TABLET (FP) PO SCH ×2 (10:20→22:32)
[2019-08-04] MEDS: CARBIDOPA/LEVODOPA 25/100 TABLET (FP) NGT SCH ×2 (10:20→22:32)
[2019-08-04 10:33] LABS: ALBUMIN 1.5 g/dl (3.4-5.0); ALK PHOS 54 U/L (45-117); ANION GAP 6 MMOL/L (8-16); BILIRUBIN,TOTAL 0.3 mg/dL (0.2-1); BLOOD UREA NITROGEN 10.6 mg/dL (7-18); CALCIUM 8.1 mg/dL (8.5-10.1); CHLORIDE 93 mmol/L (98-107); CO2 36 mmol/L (21-32); CREATININE 0.7 mg/dL (0.55-1.3); GLUCOSE,RANDOM 74 mg/dL (74-106); POTASSIUM 3.1 mmol/L (3.5-5.1); SGOT/AST 48 U/L (15-37); SGPT/ALT < 6 U/L (13-61); SODIUM 135 mmol/L (136-145); TOT PROT 4.4 g/dl (6.4-8.2)
--- NOTE | 2019-08-04 10:55 | PN ---
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 Initial presentation to hospital was , she initally noted to have left sided face droopiness followed by generalized tonic clonic seizure, she was brought to hospital and was intubated. Patient had ct head, which was no acute findings. Patient has not had any episode of seizure and eeg is pending. No more seizure. - Current Medication List Current Medications: Active Medications Acetaminophen (Tylenol Oral Solution -) 650 mg NGT Q6H PRN PRN Reason: FEVER Last Admin: 08/03/19 17:14 Dose: 650 mg Carbidopa/Levodopa (Sinemet 25/100 -) 1 each NGT BID [facility] Last Admin: 08/04/19 10:20 Dose: 1 each Donepezil HCl (Aricept -) 10 mg NGT DAILY [facility] Last Admin: 08/04/19 10:20 Dose: 10 mg Fosphenytoin Sodium (Cerebyx -) 100 mg IVPB BID [facility] Last Admin: 08/03/19 22:23 Dose: 100 mg Heparin Sodium (Porcine) (Heparin -) 5,000 unit SQ BID [facility] Last Admin: 08/04/19 10:20 Dose: 5,000 unit Hydrochlorothiazide (Hctz -) 25 mg NGT DAILY [facility] Last Admin: 08/04/19 10:20 Dose: 25 mg Piperacillin Sod/Tazobactam (Sod 4.5 gm/ Dextrose) 100 mls @ 200 mls/hr IVPB Q8H-IV [facility]; Protocol Last Admin: 08/04/19 02:16 Dose: 200 mls/hr Levetiracetam (Keppra -) 500 mg PO BID [facility] Last Admin: 08/04/19 10:20 Dose: 500 mg Lorazepam (Ativan Injection -) 2 mg IVPUSH Q4H PRN PRN Reason: Seizure Last Admin: 08/02/19 12:12 Dose: 2 mg Valproate Sodium (Depacon Injection -) 750 mg IVPB BID [facility] Last Admin: 08/04/19 10:19 Dose: 750 mg - Objective Vital Signs: Vital Signs Temperature 98.8 F 08/04/19 10:33 Pulse Rate 69 08/04/19 10:33 Respiratory Rate 08/04/19 10:33 Blood Pressure 156/70 08/04/19 10:33 O2 Sat by Pulse Oximetry (%) 97 08/03/19 09:00 Eyes: Yes: WNL, Conjunctiva Clear, EOM Intact HENT: Yes: WNL, Atraumatic, Normocephalic Neck: Yes: WNL, Supple, Trachea Midline Cardiovascular: Yes: WNL, Regular Rate and Rhythm Respiratory: Yes: WNL, Regular, CTA Bilaterally Gastrointestinal: Yes: WNL, Normal Bowel Sounds Genitourinary: Yes: WNL Musculoskeletal: Yes: WNL Extremities: Yes: WNL Edema: No Integumentary: Yes: WNL ...Motor Strength: WNL Psychiatric: Yes: WNL Labs: CBC, BMP 08/04/19 09:35 08/04/19 09:35 INR, PTT INR 0.96 (0.83-1.09) 07/06/19 21:40 Assessment/Plan - Problems (1) Diastolic CHF Assessment/Plan: On HCTZ due to rales, tachypnea; can increase dose for 24-48 hours. F/u BUN/Cr, electrolytes (being repleted), daily weight, Is and Os. Code(s): I50.30 - UNSPECIFIED DIASTOLIC (CONGESTIVE) HEART FAILURE (2) CVA (cerebral vascular accident) Code(s): I63.9 - CEREBRAL INFARCTION, UNSPECIFIED (3) Hypokalemia Assessment/Plan: Repleted K+, f/u in am, and keep 4-4.5 (on HCTZ). Repleted Mg2+, and keep 2-2.4 Keep PO4 2.5-4.9 Code(s): E87.6 - HYPOKALEMIA (4) Leukocytosis Code(s): D72.829 - ELEVATED WHITE BLOOD CELL COUNT, UNSPECIFIED (5) Respiratory failure Code(s): J96.90 - RESPIRATORY FAILURE, UNSP, UNSP W HYPOXIA OR HYPERCAPNIA (6) Alzheimer's dementia Code(s): G30.9 - ALZHEIMER'S DISEASE, UNSPECIFIED; F02.80 - DEMENTIA IN OTH DISEASES CLASSD ELSWHR W/O BEHAVRL DISTURB (7) HTN (hypertension) Code(s): I10 - ESSENTIAL (PRIMARY) HYPERTENSION (8) Tachycardia Assessment/Plan: multifactorial, including fever, dehydration. Presently improved; HR now in 80s- 90s bpm. EKG: NSR: nonspecific T wave changes. Repleted electrolytes; f/u levels. TSH 0.76 (in 2018). Code(s): R00.0 - TACHYCARDIA, UNSPECIFIED (9) Hypoalbuminemia Assessment/Plan: portends poor prognosis. F/u nutritional status. Code(s): E88.09 - OTH DISORDERS OF PLASMA-PROTEIN METABOLISM, NEC (10) Parkinsons Assessment/Plan: on levocarbidopa Code(s): G20 - PARKINSON'S DISEASE (11) Kyphoscoliosis Code(s): M41.9 - SCOLIOSIS, UNSPECIFIED
[2019-08-04] MEDS: FOSPHENYTOIN SODIUM 100 MG/2 ML VIAL IVPB SCH ×2 (13:00→22:33)
--- NOTE | 2019-08-04 14:27 | PN ---
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 (short form) - Note 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: PULMONARY Pt nonverbal. CXR showing bibasilar changes. Vital Signs Period Temp Pulse Resp BP Sys/[place]land Pulse Ox Last 24 Hr 98.8 F-102 F 69-122 19-22 112-156/41-86 Gen: NAD at rest Heart: RRR Lung: scattered rhonchi Abd: soft, nontender Ext: no edema CBC, BMP 08/04/19 09:35 08/04/19 09:35 Active Medications Acetaminophen (Tylenol Oral Solution -) 650 mg NGT Q6H PRN PRN Reason: FEVER Last Admin: 08/03/19 17:14 Dose: 650 mg Carbidopa/Levodopa (Sinemet 25/100 -) 1 each NGT BID [facility] Last Admin: 08/04/19 10:20 Dose: 1 each Donepezil HCl (Aricept -) 10 mg NGT DAILY [facility] Last Admin: 08/04/19 10:20 Dose: 10 mg Fosphenytoin Sodium (Cerebyx -) 100 mg IVPB BID [facility] Last Admin: 08/04/19 13:00 Dose: 100 mg Heparin Sodium (Porcine) (Heparin -) 5,000 unit SQ BID [facility] Last Admin: 08/04/19 10:20 Dose: 5,000 unit Hydrochlorothiazide (Hctz -) 25 mg NGT DAILY [facility] Last Admin: 08/04/19 10:20 Dose: 25 mg Piperacillin Sod/Tazobactam (Sod 4.5 gm/ Dextrose) 100 mls @ 200 mls/hr IVPB Q8H-IV [facility]; Protocol Last Admin: 08/04/19 11:44 Dose: 200 mls/hr Levetiracetam (Keppra -) 500 mg PO BID [facility] Last Admin: 08/04/19 10:20 Dose: 500 mg Lorazepam (Ativan Injection -) 2 mg IVPUSH Q4H PRN PRN Reason: Seizure Last Admin: 08/02/19 12:12 Dose: 2 mg Valproate Sodium (Depacon Injection -) 750 mg IVPB BID [facility] Last Admin: 08/04/19 10:19 Dose: 750 mg A/P s/p Acute Respiratory Failure Breakthrough Seizure r/o Pneumonia treated Seizure Disorder +Troponins likely Demand Ischemia h/o CVA Parkinsons Dementia HTN - antibiotics per ID - f/u cultures - ativan PRN - continue antiepileptics - aspiration precautions - DVT prophylaxis - continue discussions regarding goals of care, recommend palliative care
--- NOTE | 2019-08-04 16:17 | PN ---
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 (short form) - Note 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: afebrile zosyn day #1 Vital Signs Period Temp Pulse Resp BP Sys/Rowland Pulse Ox Last 24 Hr 98.3 F-100.6 F 69-99 18-22 112-156/41-80 cor-rrr lungs decreased bs left lung abd soft,nt ext +edema CBC, BMP 08/04/19 09:35 08/04/19 09:35 Microbiology 08/03/19 15:20 Blood - Peripheral Venous Blood Culture - Preliminary NO GROWTH OBTAINED AFTER 24 HOURS, INCUBATION TO CONTINUE FOR 4 DAYS. 08/03/19 13:30 Blood - Peripheral Venous Blood Culture - Preliminary NO GROWTH OBTAINED AFTER 24 HOURS, INCUBATION TO CONTINUE FOR 4 DAYS. 07/22/19 12:30 Urine - Urine - Catheterized Urine Culture - Final Vr Ec Faecium 07/19/19 09:30 Blood - Peripheral Venous Blood Culture - Final NO GROWTH AFTER 5 DAYS INCUBATION 07/19/19 09:40 Blood - Peripheral Venous Blood Culture - Final NO GROWTH AFTER 5 DAYS INCUBATION 07/17/19 06:45 Urine - Urine Torrez Urine Culture - Final NO GROWTH OBTAINED 07/06/19 11:57 Blood - Peripheral Venous Blood Culture - Final NO GROWTH AFTER 5 DAYS INCUBATION 07/06/19 21:42 Blood - Peripheral Venous Blood Culture - Final NO GROWTH AFTER 5 DAYS INCUBATION 07/08/19 17:45 Urine For Antigen Detection Legionella Antigen - Final 07/08/19 17:45 Urine For Antigen Detection Streptococcus pneumoniae Antigen (M - Final 07/07/19 11:00 Sputum - Endotrachea Suction/Ventilator Gram Stain - Final 07/07/19 11:00 Sputum - Endotrachea Suction/Ventilator Sputum Culture - Final NORMAL RESPIRATORY JULIO 07/06/19 21:40 Urine - Urine Torrez Urine Culture - Final NO GROWTH OBTAINED cxray-increasing left hemithroax infiltrate/effusion a/p fevers-possible aspiration- ?thoracentesis history of seizure s/p respiratory failure history of parkinsons disease continue zosyn day #1 repeat cxray in am Problem List - Problems (1) Seizure disorder Code(s): G40.909 - EPILEPSY, UNSP, NOT INTRACTABLE, WITHOUT STATUS EPILEPTICUS (2) CVA (cerebral vascular accident) Code(s): I63.9 - CEREBRAL INFARCTION, UNSPECIFIED (3) Leukocytosis Code(s): D72.829 - ELEVATED WHITE BLOOD CELL COUNT, UNSPECIFIED (4) Aspiration pneumonia Code(s): J69.0 - PNEUMONITIS DUE TO INHALATION OF FOOD AND VOMIT (5) Respiratory failure Code(s): J96.90 - RESPIRATORY FAILURE, UNSP, UNSP W HYPOXIA OR HYPERCAPNIA
--- NOTE | 2019-08-04 22:05 | PN ---
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, Physician History of Present Illness: Tmax today 99.5 - Current Medication List Current Medications: Active Medications Acetaminophen (Tylenol Oral Solution -) 650 mg NGT Q6H PRN PRN Reason: FEVER Last Admin: 08/03/19 17:14 Dose: 650 mg Carbidopa/Levodopa (Sinemet 25/100 -) 1 each NGT BID [facility] Last Admin: 08/04/19 10:20 Dose: 1 each Donepezil HCl (Aricept -) 10 mg NGT DAILY [facility] Last Admin: 08/04/19 10:20 Dose: 10 mg Fosphenytoin Sodium (Cerebyx -) 100 mg IVPB BID [facility] Last Admin: 08/04/19 13:00 Dose: 100 mg Heparin Sodium (Porcine) (Heparin -) 5,000 unit SQ BID [facility] Last Admin: 08/04/19 10:20 Dose: 5,000 unit Hydrochlorothiazide (Hctz -) 25 mg NGT DAILY [facility] Last Admin: 08/04/19 10:20 Dose: 25 mg Piperacillin Sod/Tazobactam (Sod 4.5 gm/ Dextrose) 100 mls @ 200 mls/hr IVPB Q8H-IV [facility]; Protocol Last Admin: 08/04/19 18:19 Dose: 200 mls/hr Levetiracetam (Keppra -) 500 mg PO BID [facility] Last Admin: 08/04/19 10:20 Dose: 500 mg Lorazepam (Ativan Injection -) 2 mg IVPUSH Q4H PRN PRN Reason: Seizure Last Admin: 08/02/19 12:12 Dose: 2 mg Valproate Sodium (Depacon Injection -) 750 mg IVPB BID [facility] Last Admin: 08/04/19 10:19 Dose: 750 mg - Objective Vital Signs: Vital Signs Temperature 98.3 F 08/04/19 14:51 Pulse Rate 70 08/04/19 14:51 Respiratory Rate 18 08/04/19 14:51 Blood Pressure 118/53 L 08/04/19 14:51 O2 Sat by Pulse Oximetry (%) 96 08/04/19 09:00 HENT: Yes: Other ((+) NGT) Neck: Yes: WNL, Supple Cardiovascular: Yes: WNL, Regular Rate and Rhythm Respiratory: Yes: Diminished Gastrointestinal: Yes: WNL, Normal Bowel Sounds, Soft Labs: CBC, BMP 08/04/19 09:35 08/04/19 09:35 INR, PTT INR 0.96 (0.83-1.09) 07/06/19 21:40 Problem List - Problems (1) Pneumonia Assessment/Plan: CXR showed rt infitrate/pleural effusions Elevated WBC Pancultured Started on IV zosyn ID consult Code(s): J18.9 - PNEUMONIA, UNSPECIFIED ORGANISM (2) Seizure disorder Assessment/Plan: Cont keppra/phenytoin/valproate Repeat CT scan head did not show any acute pathology GI consult noted and family to discuss about IR placing feeding tube At this point w/ infectious process will speak w/ IR about feeding tube placement Code(s): G40.909 - EPILEPSY, UNSP, NOT INTRACTABLE, WITHOUT STATUS EPILEPTICUS (3) HTN (hypertension) Assessment/Plan: BP stable Cont HCtz Code(s): I10 - ESSENTIAL (PRIMARY) HYPERTENSION (4) Parkinsons Assessment/Plan: Cont sinemet Code(s): G20 - PARKINSON'S DISEASE (5) Dementia Assessment/Plan: Cont aricept Code(s): F03.90 - UNSPECIFIED DEMENTIA WITHOUT BEHAVIORAL DISTURBANCE
[2019-08-04] MEDS ORDERED: PT OWN MED DRAWER 7, Y5N ONE ×2 (22:20→22:24)
[2019-08-05] MEDS ORDERED: PIPERACILLIN/TAZOBACTAM 4.5 GM VIAL IVPB ONE ×3 (01:53→17:16)
[2019-08-05] MEDS ORDERED: DEXTROSE 5%-WATER 100 ML IVPB ONE ×3 (01:53→17:16)
[2019-08-05] MEDS: PIPERACILLIN/TAZOB 4.5 GM 4.5 GM in DEXTROSE 5%-WATER 100 ML IVPB SCH ×3 (01:57→18:48)
[2019-08-05] MEDS: KCL 10 MEQ IVPB 10 MEQ/100 ML INFUS.BAG IVPB SCH ×4 (01:57→11:57)
[2019-08-05 08:34] LABS: ALBUMIN 1.7 g/dl (3.4-5.0); ALK PHOS 60 U/L (45-117); ANION GAP 8 MMOL/L (8-16); BILIRUBIN,TOTAL 0.3 mg/dL (0.2-1); BLOOD UREA NITROGEN 10.8 mg/dL (7-18); CALCIUM 8.1 mg/dL (8.5-10.1); CHLORIDE 92 mmol/L (98-107); CO2 32 mmol/L (21-32); CREATININE 0.6 mg/dL (0.55-1.3); GLUCOSE,RANDOM 71 mg/dL (74-106); POTASSIUM 3.1 mmol/L (3.5-5.1); SGOT/AST 46 U/L (15-37); SGPT/ALT < 6 U/L (13-61); SODIUM 132 mmol/L (136-145); TOT PROT 5.2 g/dl (6.4-8.2)
[2019-08-05 08:39] LABS: BASO % 0.3 % (0-2.0); EOS % 1.4 % (0-4.5); HEMATOCRIT 25.7 % (32.4-45.2); HEMOGLOBIN 8.7 GM/dL (10.7-15.3); MCH 31.7 pg (25.7-33.7); MCHC 33.7 g/dl (32.0-36.0); MEAN CELL VOLUME 93.9 fl (80-96); MEAN PLT VOLUME 8.4 fl (7.5-11.1); NEUT % 83.3 % (42.8-82.8); PLATELET COUNT 425 K/MM3 (134-434); RBC 2.74 M/mm3 (3.60-5.2); RDW 17.1 % (11.6-15.6); WHITE BLOOD COUNT 13.5 K/mm3 (4.0-10.0)
--- NOTE | 2019-08-05 10:34 | PN ---
Progress Note (short form) - Note Progress Note: PULMONARY Pt nonverbal. Fevers down. Vital Signs Period Temp Pulse Resp BP Sys/Rowland Pulse Ox Last 24 Hr 98.2 F-99.4 F 60-70 18-22 117-132/53-70 100 Gen: NAD at rest Heart: RRR Lung: scattered rhonchi Abd: soft, nontender Ext: + edema CBC, BMP 08/05/19 07:00 08/05/19 07:00 Active Medications Acetaminophen (Tylenol Oral Solution -) 650 mg NGT Q6H PRN PRN Reason: FEVER Last Admin: 08/03/19 17:14 Dose: 650 mg Carbidopa/Levodopa (Sinemet 25/100 -) 1 each NGT BID [facility] Last Admin: 08/04/19 22:32 Dose: 1 each Donepezil HCl (Aricept -) 10 mg NGT DAILY [facility] Last Admin: 08/04/19 10:20 Dose: 10 mg Fosphenytoin Sodium (Cerebyx -) 100 mg IVPB BID [facility] Last Admin: 08/04/19 22:33 Dose: 100 mg Heparin Sodium (Porcine) (Heparin -) 5,000 unit SQ BID [facility] Last Admin: 08/04/19 22:33 Dose: 5,000 unit Hydrochlorothiazide (Hctz -) 25 mg NGT DAILY [facility] Last Admin: 08/04/19 10:20 Dose: 25 mg Piperacillin Sod/Tazobactam (Sod 4.5 gm/ Dextrose) 100 mls @ 200 mls/hr IVPB Q8H-IV [facility]; Protocol Last Admin: 08/05/19 01:57 Dose: 200 mls/hr Levetiracetam (Keppra -) 500 mg PO BID [facility] Last Admin: 08/04/19 22:32 Dose: 500 mg Lorazepam (Ativan Injection -) 2 mg IVPUSH Q4H PRN PRN Reason: Seizure Last Admin: 08/02/19 12:12 Dose: 2 mg Valproate Sodium (Depacon Injection -) 750 mg IVPB BID [facility] Last Admin: 08/04/19 22:33 Dose: 750 mg A/P s/p Acute Respiratory Failure Breakthrough Seizure r/o Pneumonia treated Seizure Disorder +Troponins likely Demand Ischemia h/o CVA Parkinsons Dementia HTN - antibiotics per ID - f/u cultures - repeat CXR - lasix today - monitor urine output, creatinine - ativan PRN - continue antiepileptics - aspiration precautions - DVT prophylaxis - continue discussions regarding goals of care, recommend palliative care
[2019-08-05] MEDS ORDERED: FUROSEMIDE 40 MG/4 ML INJECTABLE VIAL IVPUSH ONE (10:35)
[2019-08-05] MEDS: DONEPEZIL HCL 10 MG TABLET (FP) NGT SCH (11:52)
[2019-08-05] MEDS: HYDROCHLOROTHIAZIDE 25 MG TABLET (FP) NGT SCH (11:52)
[2019-08-05] MEDS: CARBIDOPA/LEVODOPA 25/100 TABLET (FP) NGT SCH ×2 (11:52→22:23)
[2019-08-05] MEDS: HEPARIN NA (PORCINE) 5,000 UNITS/ML 1ML VIAL SQ SCH ×2 (11:52→22:23)
[2019-08-05] MEDS: levETIRAcetam 500 MG TABLET (FP) PO SCH ×2 (11:53→22:23)
[2019-08-05] MEDS ORDERED: POTASSIUM CHLORIDE ORAL LIQUID 20 MEQ/15 ML PO ONE (12:00)
[2019-08-05] MEDS: FOSPHENYTOIN SODIUM 100 MG/2 ML VIAL IVPB SCH ×2 (12:17→22:23)
[2019-08-05] MEDS: VALPROATE SODIUM 500 MG/5 ML VIAL IVPB SCH ×2 (12:17→22:23)
--- NOTE | 2019-08-05 17:25 | PN ---
Progress Note (short form) - Note Progress Note: afebrile sy day #2 Vital Signs Period Temp Pulse Resp BP Sys/Rowland Pulse Ox Last 24 Hr 97.6 F-99.4 F 60-78 20-22 117-144/56-70 100 cor-rrr lungs decreased bs at bases abd soft,nt ext +edema CBC, BMP 08/05/19 07:00 08/05/19 07:00 Microbiology 08/03/19 15:20 Blood - Peripheral Venous Blood Culture - Preliminary NO GROWTH OBTAINED AFTER 48 HOURS, INCUBATION TO CONTINUE FOR 3 DAYS. 08/03/19 13:30 Blood - Peripheral Venous Blood Culture - Preliminary NO GROWTH OBTAINED AFTER 48 HOURS, INCUBATION TO CONTINUE FOR 3 DAYS. 08/03/19 17:23 Urine - Urine - Catheterized Urine Culture - Preliminary Group D Strep Or Entero Coccus 07/22/19 12:30 Urine - Urine - Catheterized Urine Culture - Final Vr Ec Faecium 07/19/19 09:30 Blood - Peripheral Venous Blood Culture - Final NO GROWTH AFTER 5 DAYS INCUBATION 07/19/19 09:40 Blood - Peripheral Venous Blood Culture - Final NO GROWTH AFTER 5 DAYS INCUBATION 07/17/19 06:45 Urine - Urine Torrez Urine Culture - Final NO GROWTH OBTAINED 07/06/19 11:57 Blood - Peripheral Venous Blood Culture - Final NO GROWTH AFTER 5 DAYS INCUBATION 07/06/19 21:42 Blood - Peripheral Venous Blood Culture - Final NO GROWTH AFTER 5 DAYS INCUBATION 07/08/19 17:45 Urine For Antigen Detection Legionella Antigen - Final 07/08/19 17:45 Urine For Antigen Detection Streptococcus pneumoniae Antigen (M - Final 07/07/19 11:00 Sputum - Endotrachea Suction/Ventilator Gram Stain - Final 07/07/19 11:00 Sputum - Endotrachea Suction/Ventilator Sputum Culture - Final NORMAL RESPIRATORY JULIO 07/06/19 21:40 Urine - Urine Torrez Urine Culture - Final NO GROWTH OBTAINED a/p fevers-possible aspiration- history of seizure s/p respiratory failure history of parkinsons disease continue zosyn day #2 Problem List - Problems (1) Seizure disorder Code(s): G40.909 - EPILEPSY, UNSP, NOT INTRACTABLE, WITHOUT STATUS EPILEPTICUS (2) CVA (cerebral vascular accident) Code(s): I63.9 - CEREBRAL INFARCTION, UNSPECIFIED (3) Leukocytosis Code(s): D72.829 - ELEVATED WHITE BLOOD CELL COUNT, UNSPECIFIED (4) Aspiration pneumonia Code(s): J69.0 - PNEUMONITIS DUE TO INHALATION OF FOOD AND VOMIT (5) Respiratory failure Code(s): J96.90 - RESPIRATORY FAILURE, UNSP, UNSP W HYPOXIA OR HYPERCAPNIA
--- NOTE | 2019-08-05 22:11 | PN ---
Progress Note, Physician History of Present Illness: NGT feedings restarted - Current Medication List Current Medications: Active Medications Acetaminophen (Tylenol Oral Solution -) 650 mg NGT Q6H PRN PRN Reason: FEVER Last Admin: 08/03/19 17:14 Dose: 650 mg Carbidopa/Levodopa (Sinemet 25/100 -) 1 each NGT BID [facility] Last Admin: 08/05/19 11:52 Dose: 1 each Donepezil HCl (Aricept -) 10 mg NGT DAILY [facility] Last Admin: 08/05/19 11:52 Dose: 10 mg Fosphenytoin Sodium (Cerebyx -) 100 mg IVPB BID [facility] Last Admin: 08/05/19 12:17 Dose: 100 mg Heparin Sodium (Porcine) (Heparin -) 5,000 unit SQ BID [facility] Last Admin: 08/05/19 11:52 Dose: 5,000 unit Hydrochlorothiazide (Hctz -) 25 mg NGT DAILY [facility] Last Admin: 08/05/19 11:52 Dose: 25 mg Piperacillin Sod/Tazobactam (Sod 4.5 gm/ Dextrose) 100 mls @ 200 mls/hr IVPB Q8H-IV MATILDE; Protocol Last Admin: 08/05/19 18:48 Dose: 200 mls/hr Levetiracetam (Keppra -) 500 mg PO BID [facility] Last Admin: 08/05/19 11:53 Dose: 500 mg Lorazepam (Ativan Injection -) 2 mg IVPUSH Q4H PRN PRN Reason: Seizure Last Admin: 08/02/19 12:12 Dose: 2 mg Valproate Sodium (Depacon Injection -) 750 mg IVPB BID [facility] Last Admin: 08/05/19 12:17 Dose: 750 mg - Objective Vital Signs: Vital Signs Temperature 97.6 F 08/05/19 14:51 Pulse Rate 78 08/05/19 14:51 Respiratory Rate 20 08/05/19 14:51 Blood Pressure 144/68 08/05/19 14:51 O2 Sat by Pulse Oximetry (%) 100 08/04/19 21:00 Neck: Yes: WNL, Supple Cardiovascular: Yes: WNL, Regular Rate and Rhythm Respiratory: Yes: WNL, Regular, CTA Bilaterally Gastrointestinal: Yes: WNL, Normal Bowel Sounds, Soft Edema: LUE: 1+, RUE: 1+ Labs: CBC, BMP 08/05/19 07:00 INR, PTT INR 0.96 (0.83-1.09) 07/06/19 21:40 Problem List - Problems (1) Pneumonia Assessment/Plan: CXR showed rt infitrate/pleural effusions Cultures remain negative Cont IV zosyn WBC deccreasing Code(s): J18.9 - PNEUMONIA, UNSPECIFIED ORGANISM (2) Seizure disorder Assessment/Plan: Cont keppra/phenytoin/valproate Repeat CT scan head did not show any acute pathology GI consult noted and family to discuss about IR placing feeding tube At this point w/ infectious process will speak w/ IR about feeding tube placement Code(s): G40.909 - EPILEPSY, UNSP, NOT INTRACTABLE, WITHOUT STATUS EPILEPTICUS (3) HTN (hypertension) Assessment/Plan: BP stable Cont HCtz Code(s): I10 - ESSENTIAL (PRIMARY) HYPERTENSION (4) Parkinsons Assessment/Plan: Cont sinemet Code(s): G20 - PARKINSON'S DISEASE (5) Dementia Assessment/Plan: Cont aricept Code(s): F03.90 - UNSPECIFIED DEMENTIA WITHOUT BEHAVIORAL DISTURBANCE
[2019-08-05 22:36] LABS: ALBUMIN 1.7 g/dl (3.4-5.0); ALK PHOS 62 U/L (45-117); ANION GAP 6 MMOL/L (8-16); BILIRUBIN,TOTAL 0.2 mg/dL (0.2-1); BLOOD UREA NITROGEN 10.1 mg/dL (7-18); CALCIUM 8.1 mg/dL (8.5-10.1); CHLORIDE 91 mmol/L (98-107); CO2 36 mmol/L (21-32); CREATININE 0.7 mg/dL (0.55-1.3); GLUCOSE,RANDOM 79 mg/dL (74-106); POTASSIUM 3.4 mmol/L (3.5-5.1); SGOT/AST 44 U/L (15-37); SGPT/ALT < 6 U/L (13-61); SODIUM 133 mmol/L (136-145); TOT PROT 5.5 g/dl (6.4-8.2)
[2019-08-06] MEDS: PIPERACILLIN/TAZOB 4.5 GM 4.5 GM in DEXTROSE 5%-WATER 100 ML IVPB SCH ×2 (01:13→10:34)
[2019-08-06 08:10] LABS: BASO % 1.3 % (0-2.0); EOS % 1.7 % (0-4.5); HEMOGLOBIN 9.1 GM/dL (10.7-15.3); LYMPH % 11.8 % (8-40); MCH 31.9 pg (25.7-33.7); MCHC 33.8 g/dl (32.0-36.0); MEAN CELL VOLUME 94.5 fl (80-96); MEAN PLT VOLUME 8.3 fl (7.5-11.1); MONO % 11.2 % (3.8-10.2); PLATELET COUNT 484 K/MM3 (134-434); RBC 2.86 M/mm3 (3.60-5.2); WHITE BLOOD COUNT 8.3 K/mm3 (4.0-10.0)
[2019-08-06 08:36] LABS: ALBUMIN 1.7 g/dl (3.4-5.0); BILIRUBIN,TOTAL 0.2 mg/dL (0.2-1); BLOOD UREA NITROGEN 10.6 mg/dL (7-18); CALCIUM 8.2 mg/dL (8.5-10.1); CREATININE 0.6 mg/dL (0.55-1.3); POTASSIUM 3.4 mmol/L (3.5-5.1); TOT PROT 5.6 g/dl (6.4-8.2)
[2019-08-06] MEDS ORDERED: POTASSIUM CHLORIDE TABS 20 MEQ TABLET.ER (FP) PO ONE (09:47)
[2019-08-06] MEDS ORDERED: PIPERACILLIN/TAZOBACTAM 4.5 GM VIAL IVPB ONE (10:32)
[2019-08-06] MEDS ORDERED: DEXTROSE 5%-WATER 100 ML IVPB ONE (10:33)
[2019-08-06] MEDS: HEPARIN NA (PORCINE) 5,000 UNITS/ML 1ML VIAL SQ SCH ×2 (10:35→21:50)
[2019-08-06] MEDS: levETIRAcetam 500 MG TABLET (FP) PO SCH ×2 (10:35→21:50)
[2019-08-06] MEDS: HYDROCHLOROTHIAZIDE 25 MG TABLET (FP) NGT SCH (10:35)
[2019-08-06] MEDS: DONEPEZIL HCL 10 MG TABLET (FP) NGT SCH (10:35)
[2019-08-06] MEDS: CARBIDOPA/LEVODOPA 25/100 TABLET (FP) NGT SCH ×2 (10:37→21:55)
[2019-08-06] MEDS ORDERED: PT OWN MED DRAWER 7, Y5N ONE ×2 (10:39→21:34)
[2019-08-06] MEDS: PHENYTOIN 100 MG/4 ML U-D CUP NGT SCH ×2 (10:40→21:50)
[2019-08-06] MEDS ORDERED: POTASSIUM CHLORIDE ORAL LIQUID 20 MEQ/15 ML NGT ONE (10:45)
[2019-08-06] MEDS ORDERED: POTASSIUM CHLORIDE ORAL LIQUID 20 MEQ/15 ML GT ONE (10:45)
--- NOTE | 2019-08-06 13:12 | PN ---
Progress Note (short form) - Note Progress Note: no iv access no seizures afebrile day #3 antibioitcs Vital Signs Period Temp Pulse Resp BP Sys/Rowland Pulse Ox Last 24 Hr 97.6 F-98.9 F 60-78 18-22 130-153/63-81 95-98 cor-rrr lungs decreased bs at bases abd soft,nt ext +edema of the arms CBC, BMP 08/06/19 06:44 08/06/19 06:44 Microbiology 08/03/19 17:23 Urine - Urine - Catheterized Urine Culture - Preliminary Enterococcus Raffinosus 08/03/19 15:20 Blood - Peripheral Venous Blood Culture - Preliminary NO GROWTH OBTAINED AFTER 48 HOURS, INCUBATION TO CONTINUE FOR 3 DAYS. 08/03/19 13:30 Blood - Peripheral Venous Blood Culture - Preliminary NO GROWTH OBTAINED AFTER 48 HOURS, INCUBATION TO CONTINUE FOR 3 DAYS. 07/22/19 12:30 Urine - Urine - Catheterized Urine Culture - Final Vr Ec Faecium 07/19/19 09:30 Blood - Peripheral Venous Blood Culture - Final NO GROWTH AFTER 5 DAYS INCUBATION 07/19/19 09:40 Blood - Peripheral Venous Blood Culture - Final NO GROWTH AFTER 5 DAYS INCUBATION 07/17/19 06:45 Urine - Urine Torrez Urine Culture - Final NO GROWTH OBTAINED 07/06/19 11:57 Blood - Peripheral Venous Blood Culture - Final NO GROWTH AFTER 5 DAYS INCUBATION 07/06/19 21:42 Blood - Peripheral Venous Blood Culture - Final NO GROWTH AFTER 5 DAYS INCUBATION 07/08/19 17:45 Urine For Antigen Detection Legionella Antigen - Final 07/08/19 17:45 Urine For Antigen Detection Streptococcus pneumoniae Antigen (M - Final 07/07/19 11:00 Sputum - Endotrachea Suction/Ventilator Gram Stain - Final 07/07/19 11:00 Sputum - Endotrachea Suction/Ventilator Sputum Culture - Final NORMAL RESPIRATORY JULIO 07/06/19 21:40 Urine - Urine Torrez Urine Culture - Final NO GROWTH OBTAINED a/p fevers-probable aspiration pneumonia - now normal wbc and afebrile, no iv access , will switch to augmentin suspension if fevers recur will need iv access and resumption of iv antibiotics history of seizure s/p respiratory failure history of parkinsons disease Problem List - Problems (1) Seizure disorder Code(s): G40.909 - EPILEPSY, UNSP, NOT INTRACTABLE, WITHOUT STATUS EPILEPTICUS (2) CVA (cerebral vascular accident) Code(s): I63.9 - CEREBRAL INFARCTION, UNSPECIFIED (3) Leukocytosis Code(s): D72.829 - ELEVATED WHITE BLOOD CELL COUNT, UNSPECIFIED (4) Aspiration pneumonia Code(s): J69.0 - PNEUMONITIS DUE TO INHALATION OF FOOD AND VOMIT (5) Respiratory failure Code(s): J96.90 - RESPIRATORY FAILURE, UNSP, UNSP W HYPOXIA OR HYPERCAPNIA
[2019-08-06] MEDS: VALPROATE SODIUM 250 MG/5 ML UNIT DOSE CUP NGT SCH ×2 (13:20→21:50)
--- NOTE | 2019-08-06 14:32 | PN ---
Progress Note, Physician History of Present Illness: PULMONARY SLEEPING ,NO DISTRESS - Current Medication List Current Medications: Active Medications Acetaminophen (Tylenol Oral Solution -) 650 mg NGT Q6H PRN PRN Reason: FEVER Last Admin: 08/03/19 17:14 Dose: 650 mg Amoxicillin/Clavulanate Potassium (Augmentin 250 Mg/5 Ml Oral Suspension -) 500 mg PO TIDCM [facility] Carbidopa/Levodopa (Sinemet 25/100 -) 1 each NGT BID [facility] Last Admin: 08/06/19 10:37 Dose: 1 each Donepezil HCl (Aricept -) 10 mg NGT DAILY [facility] Last Admin: 08/06/19 10:35 Dose: 10 mg Heparin Sodium (Porcine) (Heparin -) 5,000 unit SQ BID [facility] Last Admin: 08/06/19 10:35 Dose: 5,000 unit Hydrochlorothiazide (Hctz -) 25 mg NGT DAILY [facility] Last Admin: 08/06/19 10:35 Dose: 25 mg Levetiracetam (Keppra -) 500 mg PO BID [facility] Last Admin: 08/06/19 10:35 Dose: 500 mg Lorazepam (Ativan Injection -) 2 mg IM Q4H PRN PRN Reason: SEIZURES Phenytoin Sodium (Dilantin Oral Suspension -) 100 mg NGT BID [facility] Last Admin: 08/06/19 10:40 Dose: 100 mg Valproate Sodium (Depakene -) 750 mg NGT BID [facility] Last Admin: 08/06/19 13:20 Dose: 750 mg - Objective Vital Signs: Vital Signs Temperature 98.9 F 08/06/19 10:00 Pulse Rate 66 08/06/19 10:00 Respiratory Rate 18 08/06/19 10:00 Blood Pressure 132/80 08/06/19 10:00 O2 Sat by Pulse Oximetry (%) 95 08/06/19 10:00 Constitutional: Yes: Thin, Other (SLEEPING) Eyes: Yes: WNL HENT: Yes: WNL Neck: Yes: WNL Cardiovascular: Yes: Regular Rate and Rhythm, S1, S2 Respiratory: Yes: Diminished Gastrointestinal: Yes: Normal Bowel Sounds, Soft Extremities: Yes: WNL Edema: No Labs: CBC, BMP 08/06/19 06:44 08/06/19 06:44 INR, PTT INR 0.96 (0.83-1.09) 07/06/19 21:40 - ....Imaging Cat Scan: Report Reviewed, Image Reviewed (CT ABD BILATERAL PLEURAL EFFUSIONS/ CONSIOLIDATIONS/ATELECTASIS) Problem List - Problems (1) Acute respiratory distress Code(s): R06.03 - ACUTE RESPIRATORY DISTRESS (2) CVA (cerebral vascular accident) Code(s): I63.9 - CEREBRAL INFARCTION, UNSPECIFIED (3) Respiratory failure Code(s): J96.90 - RESPIRATORY FAILURE, UNSP, UNSP W HYPOXIA OR HYPERCAPNIA (4) Status epilepticus Code(s): G40.901 - EPILEPSY, UNSP, NOT INTRACTABLE, WITH STATUS EPILEPTICUS (5) Alzheimer's dementia Code(s): G30.9 - ALZHEIMER'S DISEASE, UNSPECIFIED; F02.80 - DEMENTIA IN OTH DISEASES CLASSD ELSWHR W/O BEHAVRL DISTURB (6) HLD (hyperlipidemia) Code(s): E78.5 - HYPERLIPIDEMIA, UNSPECIFIED (7) HTN (hypertension) Code(s): I10 - ESSENTIAL (PRIMARY) HYPERTENSION (8) Seizure disorder Code(s): G40.909 - EPILEPSY, UNSP, NOT INTRACTABLE, WITHOUT STATUS EPILEPTICUS (9) Acute respiratory failure Code(s): J96.00 - ACUTE RESPIRATORY FAILURE, UNSP W HYPOXIA OR HYPERCAPNIA Assessment/Plan A/P s/p Acute Respiratory Failure Breakthrough Seizure r/o Pneumonia Seizure Disorder +Troponins likely Demand Ischemia h/o CVA Parkinsons Dementia HTN - antiepileptics - O2 as needed - DVT prophylaxis - ABX PER ID DR MAC
[2019-08-06] MEDS: AMOX TR/POTASSIUM CLAVULANATE 250 MG/5 ML BOTTLE PO SCH ×2 (15:36→17:16)
[2019-08-06] MEDS: ACETAMINOPHEN 650 MG/20.3 ML ORAL SOLUTION (CUPS) NGT PRN (18:22)
--- NOTE | 2019-08-06 22:47 | PN ---
Progress Note, Physician - Current Medication List Current Medications: Active Medications Acetaminophen (Tylenol Oral Solution -) 650 mg NGT Q6H PRN PRN Reason: FEVER Last Admin: 08/06/19 18:22 Dose: 650 mg Amoxicillin/Clavulanate Potassium (Augmentin 250 Mg/5 Ml Oral Suspension -) 500 mg PO TIDCM [facility] Last Admin: 08/06/19 17:16 Dose: Not Given Carbidopa/Levodopa (Sinemet 25/100 -) 1 each NGT BID [facility] Last Admin: 08/06/19 21:55 Dose: 1 each Donepezil HCl (Aricept -) 10 mg NGT DAILY [facility] Last Admin: 08/06/19 10:35 Dose: 10 mg Heparin Sodium (Porcine) (Heparin -) 5,000 unit SQ BID [facility] Last Admin: 08/06/19 21:50 Dose: 5,000 unit Hydrochlorothiazide (Hctz -) 25 mg NGT DAILY [facility] Last Admin: 08/06/19 10:35 Dose: 25 mg Levetiracetam (Keppra -) 500 mg PO BID [facility] Last Admin: 08/06/19 21:50 Dose: 500 mg Lorazepam (Ativan Injection -) 2 mg IM Q4H PRN PRN Reason: SEIZURES Phenytoin Sodium (Dilantin Oral Suspension -) 100 mg NGT BID [facility] Last Admin: 08/06/19 21:50 Dose: 100 mg Valproate Sodium (Depakene -) 750 mg NGT BID [facility] Last Admin: 08/06/19 21:50 Dose: 750 mg - Objective Vital Signs: Vital Signs Temperature 98.4 F 08/06/19 20:58 Pulse Rate 83 08/06/19 21:03 Respiratory Rate 19 08/06/19 21:03 Blood Pressure 156/68 08/06/19 21:03 O2 Sat by Pulse Oximetry (%) 95 08/06/19 10:00 Labs: CBC, BMP 08/06/19 06:44 08/06/19 06:44 INR, PTT INR 0.96 (0.83-1.09) 07/06/19 21:40 Problem List - Problems (1) Pneumonia Code(s): J18.9 - PNEUMONIA, UNSPECIFIED ORGANISM (2) Seizure disorder Code(s): G40.909 - EPILEPSY, UNSP, NOT INTRACTABLE, WITHOUT STATUS EPILEPTICUS (3) HTN (hypertension) Code(s): I10 - ESSENTIAL (PRIMARY) HYPERTENSION (4) Parkinsons Code(s): G20 - PARKINSON'S DISEASE (5) Dementia Code(s): F03.90 - UNSPECIFIED DEMENTIA WITHOUT BEHAVIORAL DISTURBANCE
[2019-08-07] MEDS: AMOX TR/POTASSIUM CLAVULANATE 250 MG/5 ML BOTTLE PO SCH ×3 (08:18→17:19)
--- NOTE | 2019-08-07 08:30 | PN ---
Progress Note, Physician Chief Complaint: Pt nonberbal; head bowed; does not follow commands. History of Present Illness: The patient is an 89 year old female (. 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 As per EMS, the patient developed right sided facial drooping and then had a seizure. - Current Medication List Current Medications: Active Medications Acetaminophen (Tylenol Oral Solution -) 650 mg NGT Q6H PRN PRN Reason: FEVER Last Admin: 08/06/19 18:22 Dose: 650 mg Amoxicillin/Clavulanate Potassium (Augmentin 250 Mg/5 Ml Oral Suspension -) 500 mg PO TIDCM [facility] Last Admin: 08/07/19 08:18 Dose: 500 mg Carbidopa/Levodopa (Sinemet 25/100 -) 1 each NGT BID [facility] Last Admin: 08/06/19 21:55 Dose: 1 each Donepezil HCl (Aricept -) 10 mg NGT DAILY [facility] Last Admin: 08/06/19 10:35 Dose: 10 mg Heparin Sodium (Porcine) (Heparin -) 5,000 unit SQ BID [facility] Last Admin: 08/06/19 21:50 Dose: 5,000 unit Hydrochlorothiazide (Hctz -) 25 mg NGT DAILY [facility] Last Admin: 08/06/19 10:35 Dose: 25 mg Levetiracetam (Keppra -) 500 mg PO BID [facility] Last Admin: 08/06/19 21:50 Dose: 500 mg Lorazepam (Ativan Injection -) 2 mg IM Q4H PRN PRN Reason: SEIZURES Phenytoin Sodium (Dilantin Oral Suspension -) 100 mg NGT BID [facility] Last Admin: 08/06/19 21:50 Dose: 100 mg Valproate Sodium (Depakene -) 750 mg NGT BID [facility] Last Admin: 08/06/19 21:50 Dose: 750 mg - Objective Vital Signs: Vital Signs Temperature 98.6 F 08/07/19 07:08 Pulse Rate 71 08/07/19 07:08 Respiratory Rate 20 08/07/19 07:08 Blood Pressure 146/58 L 08/07/19 07:08 O2 Sat by Pulse Oximetry (%) 98 08/06/19 21:00 Constitutional: Yes: Thin Eyes: Yes: Conjunctiva Clear HENT: Yes: Drooling Neck: Yes: Decreased ROM Cardiovascular: Yes: S1, S2 Labs: CBC, BMP 08/06/19 06:44 08/06/19 06:44 INR, PTT INR 0.96 (0.83-1.09) 07/06/19 21:40 Problem List - Problems (1) Diastolic CHF Assessment/Plan: On HCTZ due to rales, tachypnea. CXR: pulmonary edema. Start ACEI for HTN, CHF. F/u BUN/Cr, electrolytes (being repleted), daily weight, Is and Os. Code(s): I50.30 - UNSPECIFIED DIASTOLIC (CONGESTIVE) HEART FAILURE (2) CVA (cerebral vascular accident) Code(s): I63.9 - CEREBRAL INFARCTION, UNSPECIFIED (3) Hypokalemia Assessment/Plan: Repleted K+, f/u in am, and keep 4-4.5 (on HCTZ). Repleted Mg2+, and keep 2-2.4 (f/u today's level). Keep PO4 2.5-4.9 Code(s): E87.6 - HYPOKALEMIA (4) Leukocytosis Code(s): D72.829 - ELEVATED WHITE BLOOD CELL COUNT, UNSPECIFIED (5) Respiratory failure Code(s): J96.90 - RESPIRATORY FAILURE, UNSP, UNSP W HYPOXIA OR HYPERCAPNIA (6) Alzheimer's dementia Code(s): G30.9 - ALZHEIMER'S DISEASE, UNSPECIFIED; F02.80 - DEMENTIA IN OTH DISEASES CLASSD ELSWHR W/O BEHAVRL DISTURB (7) HTN (hypertension) Code(s): I10 - ESSENTIAL (PRIMARY) HYPERTENSION (8) Tachycardia Assessment/Plan: multifactorial, including fever, dehydration. Presently improved; HR now in 80s- 90s bpm. EKG: NSR: nonspecific T wave changes. Repleted electrolytes (decreased K) ; f/u levels. TSH 0.76 (in 2018). Code(s): R00.0 - TACHYCARDIA, UNSPECIFIED (9) Hypoalbuminemia Assessment/Plan: portends poor prognosis. F/u nutritional status. Code(s): E88.09 - OTH DISORDERS OF PLASMA-PROTEIN METABOLISM, NEC (10) Parkinsons Assessment/Plan: on levocarbidopa Code(s): G20 - PARKINSON'S DISEASE (11) Kyphoscoliosis Code(s): M41.9 - SCOLIOSIS, UNSPECIFIED
[2019-08-07] MEDS: LISINOPRIL 5 MG TABLET (FP) PO SCH (09:30)
[2019-08-07] MEDS: levETIRAcetam 500 MG TABLET (FP) PO SCH ×2 (09:30→21:17)
[2019-08-07] MEDS: VALPROATE SODIUM 250 MG/5 ML UNIT DOSE CUP NGT SCH ×2 (09:30→21:17)
[2019-08-07] MEDS: PHENYTOIN 100 MG/4 ML U-D CUP NGT SCH ×2 (09:31→21:17)
[2019-08-07] MEDS: HEPARIN NA (PORCINE) 5,000 UNITS/ML 1ML VIAL SQ SCH ×2 (09:31→21:17)
[2019-08-07] MEDS: CARBIDOPA/LEVODOPA 25/100 TABLET (FP) NGT SCH ×2 (09:32→21:17)
[2019-08-07] MEDS: DONEPEZIL HCL 10 MG TABLET (FP) NGT SCH (09:32)
[2019-08-07] MEDS: HYDROCHLOROTHIAZIDE 25 MG TABLET (FP) NGT SCH (09:32)
--- NOTE | 2019-08-07 12:11 | PN ---
Progress Note (short form) - Note Progress Note: PULMONARY Pt nonverbal. No fevers recorded. Vital Signs Period Temp Pulse Resp BP Sys/Rowland Pulse Ox Last 24 Hr 97.9 F-98.8 F 71-83 16-21 144-156/55-68 95-98 Gen: NAD at rest Heart: RRR Lung: scattered rhonchi Abd: soft, nontender Ext: + edema CBC, BMP 08/06/19 06:44 08/06/19 06:44 Active Medications Acetaminophen (Tylenol Oral Solution -) 650 mg NGT Q6H PRN PRN Reason: FEVER Last Admin: 08/06/19 18:22 Dose: 650 mg Amoxicillin/Clavulanate Potassium (Augmentin 250 Mg/5 Ml Oral Suspension -) 500 mg PO TIDCM [facility] Last Admin: 08/07/19 12:03 Dose: 500 mg Carbidopa/Levodopa (Sinemet 25/100 -) 1 each NGT BID [facility] Last Admin: 08/07/19 09:32 Dose: 1 each Donepezil HCl (Aricept -) 10 mg NGT DAILY [facility] Last Admin: 08/07/19 09:32 Dose: 10 mg Heparin Sodium (Porcine) (Heparin -) 5,000 unit SQ BID [facility] Last Admin: 08/07/19 09:31 Dose: 5,000 unit Hydrochlorothiazide (Hctz -) 25 mg NGT DAILY [facility] Last Admin: 08/07/19 09:32 Dose: 25 mg Levetiracetam (Keppra -) 500 mg PO BID [facility] Last Admin: 08/07/19 09:30 Dose: 500 mg Lisinopril (Prinivil) 2.5 mg PO DAILY [facility] Last Admin: 08/07/19 09:30 Dose: 2.5 mg Lorazepam (Ativan Injection -) 2 mg IM Q4H PRN PRN Reason: SEIZURES Phenytoin Sodium (Dilantin Oral Suspension -) 100 mg NGT BID [facility] Last Admin: 08/07/19 09:31 Dose: 100 mg Valproate Sodium (Depakene -) 750 mg NGT BID [facility] Last Admin: 08/07/19 09:30 Dose: 750 mg A/P s/p Acute Respiratory Failure Breakthrough Seizure Pneumonia likely Aspiration Seizure Disorder +Troponins likely Demand Ischemia h/o CVA Parkinsons Dementia HTN - antibiotics per ID - moniotr CXR - monitor urine output, creatinine - ativan PRN - continue antiepileptics - aspiration precautions - DVT prophylaxis - continue discussions regarding goals of care, recommend palliative care
[2019-08-07 14:47] LABS: ALBUMIN 1.6 g/dl (3.4-5.0); ALK PHOS 71 U/L (45-117); ANION GAP 5 MMOL/L (8-16); BILIRUBIN,TOTAL 0.2 mg/dL (0.2-1); BLOOD UREA NITROGEN 12.8 mg/dL (7-18); CHLORIDE 92 mmol/L (98-107); CO2 35 mmol/L (21-32); CREATININE 0.5 mg/dL (0.55-1.3); GLUCOSE,RANDOM 101 mg/dL (74-106); POTASSIUM 3.4 mmol/L (3.5-5.1); SGOT/AST 41 U/L (15-37); SGPT/ALT < 6 U/L (13-61); SODIUM 132 mmol/L (136-145); TOT PROT 5.2 g/dl (6.4-8.2)
--- NOTE | 2019-08-07 17:44 | PN ---
Progress Note, Physician - Current Medication List Current Medications: Active Medications Acetaminophen (Tylenol Oral Solution -) 650 mg NGT Q6H PRN PRN Reason: FEVER Last Admin: 08/06/19 18:22 Dose: 650 mg Amoxicillin/Clavulanate Potassium (Augmentin 250 Mg/5 Ml Oral Suspension -) 500 mg PO TIDCM [facility] Last Admin: 08/07/19 17:19 Dose: 500 mg Carbidopa/Levodopa (Sinemet 25/100 -) 1 each NGT BID [facility] Last Admin: 08/07/19 09:32 Dose: 1 each Donepezil HCl (Aricept -) 10 mg NGT DAILY [facility] Last Admin: 08/07/19 09:32 Dose: 10 mg Heparin Sodium (Porcine) (Heparin -) 5,000 unit SQ BID [facility] Last Admin: 08/07/19 09:31 Dose: 5,000 unit Hydrochlorothiazide (Hctz -) 25 mg NGT DAILY [facility] Last Admin: 08/07/19 09:32 Dose: 25 mg Levetiracetam (Keppra -) 500 mg PO BID [facility] Last Admin: 08/07/19 09:30 Dose: 500 mg Lisinopril (Prinivil) 2.5 mg PO DAILY [facility] Last Admin: 08/07/19 09:30 Dose: 2.5 mg Lorazepam (Ativan Injection -) 2 mg IM Q4H PRN PRN Reason: SEIZURES Phenytoin Sodium (Dilantin Oral Suspension -) 100 mg NGT BID [facility] Last Admin: 08/07/19 09:31 Dose: 100 mg Valproate Sodium (Depakene -) 750 mg NGT BID [facility] Last Admin: 08/07/19 09:30 Dose: 750 mg - Objective Vital Signs: Vital Signs Temperature 98.0 F 08/07/19 13:53 Pulse Rate 72 08/07/19 13:53 Respiratory Rate 16 08/07/19 09:00 Blood Pressure 140/50 L 08/07/19 13:53 O2 Sat by Pulse Oximetry (%) 95 08/07/19 09:00 Labs: CBC, BMP 08/06/19 06:44 08/07/19 13:30 INR, PTT INR 0.96 (0.83-1.09) 07/06/19 21:40 Problem List - Problems (1) Pneumonia Code(s): J18.9 - PNEUMONIA, UNSPECIFIED ORGANISM (2) Seizure disorder Code(s): G40.909 - EPILEPSY, UNSP, NOT INTRACTABLE, WITHOUT STATUS EPILEPTICUS (3) HTN (hypertension) Code(s): I10 - ESSENTIAL (PRIMARY) HYPERTENSION (4) Parkinsons Code(s): G20 - PARKINSON'S DISEASE (5) Dementia Code(s): F03.90 - UNSPECIFIED DEMENTIA WITHOUT BEHAVIORAL DISTURBANCE
[2019-08-07] MEDS ORDERED: PT OWN MED DRAWER 7, Y5N ONE (21:05)
[2019-08-08 09:46] LABS: INR 0.95 (0.83-1.09); PROTHROMBIN TIME (PATIENT) 11.2 SEC (9.7-13.0)
[2019-08-08] MEDS: VALPROATE SODIUM 250 MG/5 ML UNIT DOSE CUP NGT SCH ×2 (11:09→22:07)
[2019-08-08] MEDS: AMOX TR/POTASSIUM CLAVULANATE 250 MG/5 ML BOTTLE PO SCH ×3 (11:09→16:29)
[2019-08-08] MEDS: PHENYTOIN 100 MG/4 ML U-D CUP NGT SCH ×2 (11:10→23:47)
[2019-08-08] MEDS: DONEPEZIL HCL 10 MG TABLET (FP) NGT SCH (11:10)
[2019-08-08] MEDS: CARBIDOPA/LEVODOPA 25/100 TABLET (FP) NGT SCH ×2 (11:11→22:07)
[2019-08-08] MEDS: levETIRAcetam 500 MG TABLET (FP) PO SCH ×2 (11:11→22:07)
[2019-08-08] MEDS: HYDROCHLOROTHIAZIDE 25 MG TABLET (FP) NGT SCH (11:11)
[2019-08-08] MEDS: LISINOPRIL 5 MG TABLET (FP) PO SCH (11:11)
[2019-08-08] MEDS: HEPARIN NA (PORCINE) 5,000 UNITS/ML 1ML VIAL SQ SCH ×2 (11:12→22:07)
--- NOTE | 2019-08-08 12:11 | PN ---
Progress Note (short form) - Note Progress Note: PULMONARY Pt nonverbal. No fevers recorded. Vital Signs Period Temp Pulse Resp BP Sys/Rowland Pulse Ox Last 24 Hr 98.0 F-99 F 57-80 18-20 121-156/50-70 97-97 Gen: NAD at rest Heart: RRR Lung: scattered rhonchi Abd: soft, nontender Ext: + edema CBC, BMP 08/06/19 06:44 08/07/19 13:30 Active Medications Acetaminophen (Tylenol Oral Solution -) 650 mg NGT Q6H PRN PRN Reason: FEVER Last Admin: 08/06/19 18:22 Dose: 650 mg Amoxicillin/Clavulanate Potassium (Augmentin 250 Mg/5 Ml Oral Suspension -) 500 mg PO TIDCM [facility] Last Admin: 08/08/19 11:09 Dose: 500 mg Carbidopa/Levodopa (Sinemet 25/100 -) 1 each NGT BID [facility] Last Admin: 08/08/19 11:11 Dose: 1 each Donepezil HCl (Aricept -) 10 mg NGT DAILY [facility] Last Admin: 08/08/19 11:10 Dose: 10 mg Heparin Sodium (Porcine) (Heparin -) 5,000 unit SQ BID [facility] Last Admin: 08/08/19 11:12 Dose: 5,000 unit Hydrochlorothiazide (Hctz -) 25 mg NGT DAILY [facility] Last Admin: 08/08/19 11:11 Dose: 25 mg Levetiracetam (Keppra -) 500 mg PO BID [facility] Last Admin: 08/08/19 11:11 Dose: 500 mg Lisinopril (Prinivil) 2.5 mg PO DAILY [facility] Last Admin: 08/08/19 11:11 Dose: 2.5 mg Lorazepam (Ativan Injection -) 2 mg IM Q4H PRN PRN Reason: SEIZURES Phenytoin Sodium (Dilantin Oral Suspension -) 100 mg NGT BID [facility] Last Admin: 08/08/19 11:10 Dose: 100 mg Valproate Sodium (Depakene -) 750 mg NGT BID [facility] Last Admin: 08/08/19 11:09 Dose: 750 mg A/P s/p Acute Respiratory Failure Breakthrough Seizure Pneumonia likely Aspiration Seizure Disorder +Troponins likely Demand Ischemia h/o CVA Parkinsons Dementia HTN - for PEG placement - antibiotics per ID - monitor urine output, creatinine - ativan PRN - continue antiepileptics - aspiration precautions - DVT prophylaxis - continue discussions regarding goals of care, recommend palliative care
[2019-08-08] MEDS: LORazepam 2 MG/ML SDV VIAL IM PRN (16:29)
--- NOTE | 2019-08-08 20:55 | PN ---
Progress Note, Physician History of Present Illness: No new changes - Current Medication List Current Medications: Active Medications Acetaminophen (Tylenol Oral Solution -) 650 mg NGT Q6H PRN PRN Reason: FEVER Last Admin: 08/06/19 18:22 Dose: 650 mg Amoxicillin/Clavulanate Potassium (Augmentin 250 Mg/5 Ml Oral Suspension -) 500 mg PO TIDCM [facility] Last Admin: 08/08/19 16:29 Dose: 500 mg Carbidopa/Levodopa (Sinemet 25/100 -) 1 each NGT BID [facility] Last Admin: 08/08/19 11:11 Dose: 1 each Donepezil HCl (Aricept -) 10 mg NGT DAILY [facility] Last Admin: 08/08/19 11:10 Dose: 10 mg Heparin Sodium (Porcine) (Heparin -) 5,000 unit SQ BID [facility] Last Admin: 08/08/19 11:12 Dose: 5,000 unit Hydrochlorothiazide (Hctz -) 25 mg NGT DAILY [facility] Last Admin: 08/08/19 11:11 Dose: 25 mg Levetiracetam (Keppra -) 500 mg PO BID [facility] Last Admin: 08/08/19 11:11 Dose: 500 mg Lisinopril (Prinivil) 2.5 mg PO DAILY [facility] Last Admin: 08/08/19 11:11 Dose: 2.5 mg Lorazepam (Ativan Injection -) 2 mg IM Q4H PRN PRN Reason: SEIZURES Last Admin: 08/08/19 16:29 Dose: 2 mg Phenytoin Sodium (Dilantin Oral Suspension -) 100 mg NGT BID [facility] Last Admin: 08/08/19 11:10 Dose: 100 mg Valproate Sodium (Depakene -) 750 mg NGT BID [facility] Last Admin: 08/08/19 11:09 Dose: 750 mg - Objective Vital Signs: Vital Signs Temperature 99 F 08/08/19 09:00 Pulse Rate 80 08/08/19 09:00 Respiratory Rate 20 08/08/19 09:00 Blood Pressure 156/64 08/08/19 09:00 O2 Sat by Pulse Oximetry (%) 97 08/08/19 09:00 Neck: Yes: WNL, Supple Cardiovascular: Yes: WNL, Regular Rate and Rhythm Respiratory: Yes: WNL, Regular, CTA Bilaterally Gastrointestinal: Yes: WNL, Normal Bowel Sounds, Soft Labs: CBC, BMP 08/06/19 06:44 08/07/19 13:30 INR, PTT INR 0.95 (0.83-1.09) 08/08/19 08:16 Problem List - Problems (1) Dementia Assessment/Plan: Cont aricept Pt for Feeding tube placement in am Code(s): F03.90 - UNSPECIFIED DEMENTIA WITHOUT BEHAVIORAL DISTURBANCE (2) Pneumonia Assessment/Plan: CXR showed rt infitrate/pleural effusions Cultures remain negative Cont augmentin (Pt has no IV access) Code(s): J18.9 - PNEUMONIA, UNSPECIFIED ORGANISM (3) Seizure disorder Assessment/Plan: Cont keppra/phenytoin/valproate Repeat CT scan head did not show any acute pathology GI consult noted and family to discuss about IR placing feeding tube At this point w/ infectious process will speak w/ IR about feeding tube placement Code(s): G40.909 - EPILEPSY, UNSP, NOT INTRACTABLE, WITHOUT STATUS EPILEPTICUS (4) HTN (hypertension) Assessment/Plan: BP stable Cont HCtz Code(s): I10 - ESSENTIAL (PRIMARY) HYPERTENSION (5) Parkinsons Assessment/Plan: Cont sinemet Code(s): G20 - PARKINSON'S DISEASE
[2019-08-09 08:44] LABS: BASO % 0.4 % (0-2.0); EOS % 2.5 % (0-4.5); HEMATOCRIT 25.5 % (32.4-45.2); HEMOGLOBIN 8.9 GM/dL (10.7-15.3); LYMPH % 17.5 % (8-40); MCH 32.2 pg (25.7-33.7); MCHC 34.9 g/dl (32.0-36.0); MEAN CELL VOLUME 92.3 fl (80-96); MONO % 16.3 % (3.8-10.2); NEUT % 63.3 % (42.8-82.8); PLATELET COUNT 467 K/MM3 (134-434); RBC 2.76 M/mm3 (3.60-5.2); RDW 16.9 % (11.6-15.6); WHITE BLOOD COUNT 9.7 K/mm3 (4.0-10.0)
--- NOTE | 2019-08-09 08:50 | PN ---
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 Initial presentation to hospital was , she initally noted to have left sided face droopiness followed by generalized tonic clonic seizure, she was brought to hospital and was intubated. Patient had ct head, which was no acute findings. Patient has not had any episode of seizure and eeg is pending. No more seizure. - Current Medication List Current Medications: Active Medications Acetaminophen (Tylenol Oral Solution -) 650 mg NGT Q6H PRN PRN Reason: FEVER Last Admin: 08/06/19 18:22 Dose: 650 mg Amoxicillin/Clavulanate Potassium (Augmentin 250 Mg/5 Ml Oral Suspension -) 500 mg PO TIDCM [facility] Last Admin: 08/08/19 16:29 Dose: 500 mg Carbidopa/Levodopa (Sinemet 25/100 -) 1 each NGT BID [facility] Last Admin: 08/08/19 22:07 Dose: 1 each Donepezil HCl (Aricept -) 10 mg NGT DAILY [facility] Last Admin: 08/08/19 11:10 Dose: 10 mg Heparin Sodium (Porcine) (Heparin -) 5,000 unit SQ BID [facility] Last Admin: 08/08/19 22:07 Dose: 5,000 unit Hydrochlorothiazide (Hctz -) 25 mg NGT DAILY [facility] Last Admin: 08/08/19 11:11 Dose: 25 mg Levetiracetam (Keppra -) 500 mg PO BID [facility] Last Admin: 08/08/19 22:07 Dose: 500 mg Lisinopril (Prinivil) 2.5 mg PO DAILY [facility] Last Admin: 08/08/19 11:11 Dose: 2.5 mg Lorazepam (Ativan Injection -) 2 mg IM Q4H PRN PRN Reason: SEIZURES Last Admin: 08/08/19 16:29 Dose: 2 mg Phenytoin Sodium (Dilantin Oral Suspension -) 100 mg NGT BID [facility] Last Admin: 08/08/19 23:47 Dose: 100 mg Valproate Sodium (Depakene -) 750 mg NGT BID [facility] Last Admin: 08/08/19 22:07 Dose: 750 mg - Objective Vital Signs: Vital Signs Temperature 98.6 F 08/09/19 07:00 Pulse Rate 70 08/09/19 07:00 Respiratory Rate 20 08/09/19 07:00 Blood Pressure 149/64 08/09/19 07:00 O2 Sat by Pulse Oximetry (%) 97 08/08/19 09:00 Eyes: Yes: WNL, Conjunctiva Clear, EOM Intact HENT: Yes: WNL, Atraumatic, Normocephalic Neck: Yes: WNL, Supple, Trachea Midline Cardiovascular: Yes: WNL, Regular Rate and Rhythm Respiratory: Yes: WNL, Regular, CTA Bilaterally Gastrointestinal: Yes: WNL, Normal Bowel Sounds Genitourinary: Yes: WNL Musculoskeletal: Yes: WNL Extremities: Yes: WNL Edema: No Integumentary: Yes: WNL ...Motor Strength: WNL Psychiatric: Yes: WNL Labs: INR, PTT INR 0.95 (0.83-1.09) 08/08/19 08:16 Assessment/Plan - Problems (1) Diastolic CHF Assessment/Plan: On HCTZ due to rales, tachypnea; can increase dose for 24-48 hours. F/u BUN/Cr, electrolytes (being repleted), daily weight, Is and Os. Code(s): I50.30 - UNSPECIFIED DIASTOLIC (CONGESTIVE) HEART FAILURE (2) CVA (cerebral vascular accident) Code(s): I63.9 - CEREBRAL INFARCTION, UNSPECIFIED (3) Hypokalemia Assessment/Plan: Repleted K+, f/u in am, and keep 4-4.5 (on HCTZ). Repleted Mg2+, and keep 2-2.4 Keep PO4 2.5-4.9 Code(s): E87.6 - HYPOKALEMIA (4) Leukocytosis Code(s): D72.829 - ELEVATED WHITE BLOOD CELL COUNT, UNSPECIFIED (5) Respiratory failure Code(s): J96.90 - RESPIRATORY FAILURE, UNSP, UNSP W HYPOXIA OR HYPERCAPNIA (6) Alzheimer's dementia Code(s): G30.9 - ALZHEIMER'S DISEASE, UNSPECIFIED; F02.80 - DEMENTIA IN OTH DISEASES CLASSD ELSWHR W/O BEHAVRL DISTURB (7) HTN (hypertension) Code(s): I10 - ESSENTIAL (PRIMARY) HYPERTENSION (8) Tachycardia Assessment/Plan: multifactorial, including fever, dehydration. Presently improved; HR now in 80s- 90s bpm. EKG: NSR: nonspecific T wave changes. Repleted electrolytes; f/u levels. TSH 0.76 (in 2018). Code(s): R00.0 - TACHYCARDIA, UNSPECIFIED (9) Hypoalbuminemia Assessment/Plan: portends poor prognosis. F/u nutritional status. Code(s): E88.09 - OTH DISORDERS OF PLASMA-PROTEIN METABOLISM, NEC (10) Parkinsons Assessment/Plan: on levocarbidopa Code(s): G20 - PARKINSON'S DISEASE (11) Kyphoscoliosis Code(s): M41.9 - SCOLIOSIS, UNSPECIFIED
[2019-08-09 09:12] LABS: ALBUMIN 1.6 g/dl (3.4-5.0); BILIRUBIN,TOTAL 0.2 mg/dL (0.2-1); BLOOD UREA NITROGEN 13.1 mg/dL (7-18); CALCIUM 8.2 mg/dL (8.5-10.1); CREATININE 0.5 mg/dL (0.55-1.3); POTASSIUM 3.5 mmol/L (3.5-5.1); TOT PROT 5.2 g/dl (6.4-8.2)
[2019-08-09] MEDS: DONEPEZIL HCL 10 MG TABLET (FP) NGT SCH (09:29)
[2019-08-09] MEDS: HEPARIN NA (PORCINE) 5,000 UNITS/ML 1ML VIAL SQ SCH ×2 (09:29→22:01)
[2019-08-09] MEDS: levETIRAcetam 500 MG TABLET (FP) PO SCH ×2 (09:45→22:03)
[2019-08-09] MEDS: VALPROATE SODIUM 250 MG/5 ML UNIT DOSE CUP NGT SCH ×2 (09:45→22:03)
[2019-08-09] MEDS: AMOX TR/POTASSIUM CLAVULANATE 250 MG/5 ML BOTTLE PO SCH ×3 (09:46→17:44)
[2019-08-09] MEDS: PHENYTOIN 100 MG/4 ML U-D CUP NGT SCH ×2 (09:46→22:01)
[2019-08-09] MEDS: CARBIDOPA/LEVODOPA 25/100 TABLET (FP) NGT SCH ×2 (09:46→22:03)
[2019-08-09] MEDS: LISINOPRIL 5 MG TABLET (FP) PO SCH (09:46)
[2019-08-09] MEDS: HYDROCHLOROTHIAZIDE 25 MG TABLET (FP) NGT SCH (09:46)
--- NOTE | 2019-08-09 11:02 | PN ---
Progress Note (short form) - Note Progress Note: Lethargic and non-verbal. No acute events documented overnight. Breathing is non-labored. Intake & Output 08/06/19 08/07/19 08/08/19 08/09/19 23:59 23:59 23:59 23:59 Intake Total 1414 1788 1296 1300 Balance 1414 1788 1296 1300 Weight 94 lb 14.4 oz 93 lb 4 oz 94 lb 101 lb 4 oz Last Vital Signs Temp Pulse Resp BP Pulse Ox 98.6 F 70 20 149/64 97 08/09/19 07:00 08/09/19 07:00 08/09/19 07:00 08/09/19 07:00 08/08/19 09:00 Active Medications Acetaminophen (Tylenol Oral Solution -) 650 mg NGT Q6H PRN PRN Reason: FEVER Last Admin: 08/06/19 18:22 Dose: 650 mg Amoxicillin/Clavulanate Potassium (Augmentin 250 Mg/5 Ml Oral Suspension -) 500 mg PO TIDCM [facility] Last Admin: 08/09/19 09:46 Dose: Not Given Carbidopa/Levodopa (Sinemet 25/100 -) 1 each NGT BID [facility] Last Admin: 08/09/19 09:46 Dose: Not Given Donepezil HCl (Aricept -) 10 mg NGT DAILY [facility] Last Admin: 08/09/19 09:29 Dose: Not Given Heparin Sodium (Porcine) (Heparin -) 5,000 unit SQ BID [facility] Last Admin: 08/09/19 09:29 Dose: Not Given Hydrochlorothiazide (Hctz -) 25 mg NGT DAILY [facility] Last Admin: 08/09/19 09:46 Dose: Not Given Levetiracetam (Keppra -) 500 mg PO BID [facility] Last Admin: 08/09/19 09:45 Dose: 500 mg Lisinopril (Prinivil) 2.5 mg PO DAILY [facility] Last Admin: 08/09/19 09:46 Dose: Not Given Lorazepam (Ativan Injection -) 2 mg IM Q4H PRN PRN Reason: SEIZURES Last Admin: 08/08/19 16:29 Dose: 2 mg Phenytoin Sodium (Dilantin Oral Suspension -) 100 mg NGT BID [facility] Last Admin: 08/09/19 09:46 Dose: 100 mg Valproate Sodium (Depakene -) 750 mg NGT BID [facility] Last Admin: 08/09/19 09:45 Dose: 750 mg Gen: NAD at rest Heart: RRR Lung: scattered rhonchi Abd: soft, nontender Ext: + edema Laboratory Results - last 24 hr 08/09/19 08/09/19 07:35 07:35 WBC 9.7 RBC 2.76 L Hgb 8.9 L Hct 25.5 L MCV 92.3 MCH 32.2 MCHC 34.9 RDW 16.9 H Plt Count 467 H MPV 8.0 Absolute Neuts (auto) 6.1 Neutrophils % 63.3 Lymphocytes % 17.5 D Monocytes % 16.3 H Eosinophils % 2.5 Basophils % 0.4 Nucleated RBC % 0 Sodium 130 L Potassium 3.5 Chloride 88 L Carbon Dioxide 37 H Anion Gap 5 L BUN 13.1 Creatinine 0.5 L Est GFR (CKD-EPI)AfAm 100.86 Est GFR (CKD-EPI)NonAf 87.02 Random Glucose 81 Calcium 8.2 L Total Bilirubin 0.2 AST 44 H ALT 9 L Alkaline Phosphatase 61 Total Protein 5.2 L Albumin 1.6 L A/P s/p Acute Respiratory Failure Breakthrough Seizure Pneumonia likely Aspiration Seizure Disorder +Troponins likely Demand Ischemia h/o CVA Parkinsons Dementia HTN - for PEG placement - antibiotics per ID - monitor urine output, creatinine - ativan PRN - continue antiepileptics - aspiration precautions - DVT prophylaxis - continue discussions regarding goals of care, recommend palliative care Dr Narayanan
[2019-08-09 11:14] LABS: ANISOCYTOSIS 1+; MACROCYTOSIS 0; PLATELET ESTIMATE NORMAL
[2019-08-09] MEDS ORDERED: PT OWN MED DRAWER 7, Y5N ONE (21:15)
--- NOTE | 2019-08-09 22:12 | PN ---
Progress Note, Physician History of Present Illness: Pt tolerated procedure - Current Medication List Current Medications: Active Medications Acetaminophen (Tylenol Oral Solution -) 650 mg NGT Q6H PRN PRN Reason: FEVER Last Admin: 08/06/19 18:22 Dose: 650 mg Amoxicillin/Clavulanate Potassium (Augmentin 250 Mg/5 Ml Oral Suspension -) 500 mg PO TIDCM [facility] Last Admin: 08/09/19 17:44 Dose: Not Given Carbidopa/Levodopa (Sinemet 25/100 -) 1 each NGT BID [facility] Last Admin: 08/09/19 22:03 Dose: 1 each Donepezil HCl (Aricept -) 10 mg NGT DAILY [facility] Last Admin: 08/09/19 09:29 Dose: Not Given Heparin Sodium (Porcine) (Heparin -) 5,000 unit SQ BID [facility] Last Admin: 08/09/19 22:01 Dose: 5,000 unit Hydrochlorothiazide (Hctz -) 25 mg NGT DAILY [facility] Last Admin: 08/09/19 09:46 Dose: Not Given Levetiracetam (Keppra -) 500 mg PO BID [facility] Last Admin: 08/09/19 22:03 Dose: 500 mg Lisinopril (Prinivil) 2.5 mg PO DAILY [facility] Last Admin: 08/09/19 09:46 Dose: Not Given Lorazepam (Ativan Injection -) 2 mg IM Q4H PRN PRN Reason: SEIZURES Last Admin: 08/08/19 16:29 Dose: 2 mg Phenytoin Sodium (Dilantin Oral Suspension -) 100 mg NGT BID [facility] Last Admin: 08/09/19 22:01 Dose: 100 mg Valproate Sodium (Depakene -) 750 mg NGT BID [facility] Last Admin: 08/09/19 22:03 Dose: 750 mg - Objective Vital Signs: Vital Signs Temperature 98.0 F 08/09/19 18:38 Pulse Rate 66 08/09/19 18:38 Respiratory Rate 20 08/09/19 18:38 Blood Pressure 128/68 08/09/19 18:38 O2 Sat by Pulse Oximetry (%) 97 08/09/19 17:41 Neck: Yes: WNL, Supple Cardiovascular: Yes: WNL, Regular Rate and Rhythm Respiratory: Yes: WNL, Regular, CTA Bilaterally Gastrointestinal: Yes: WNL, Normal Bowel Sounds, Soft, Other ((+) PEG) Edema: LUE: Trace, RUE: Trace Labs: CBC, BMP 08/09/19 07:35 08/09/19 07:35 INR, PTT INR 0.95 (0.83-1.09) 08/08/19 08:16 Problem List - Problems (1) Dementia Assessment/Plan: Cont aricept S/P PEG placement Start feedings in am Code(s): F03.90 - UNSPECIFIED DEMENTIA WITHOUT BEHAVIORAL DISTURBANCE (2) Pneumonia Assessment/Plan: CXR showed rt infitrate/pleural effusions Cultures remain negative Cont augmentin (Pt has no IV access) Code(s): J18.9 - PNEUMONIA, UNSPECIFIED ORGANISM (3) Seizure disorder Assessment/Plan: Cont keppra/phenytoin/valproate Repeat CT scan head did not show any acute pathology GI consult noted and family to discuss about IR placing feeding tube At this point w/ infectious process will speak w/ IR about feeding tube placement Code(s): G40.909 - EPILEPSY, UNSP, NOT INTRACTABLE, WITHOUT STATUS EPILEPTICUS (4) HTN (hypertension) Assessment/Plan: BP stable Cont HCtz Code(s): I10 - ESSENTIAL (PRIMARY) HYPERTENSION (5) Parkinsons Assessment/Plan: Cont sinemet Code(s): G20 - PARKINSON'S DISEASE
--- NOTE | 2019-08-10 09:38 | PN ---
Progress Note (short form) - Note Progress Note: Lethargic and non-verbal. S/P PEG yesterday. Breathing is non-labored. Intake & Output 08/07/19 08/08/19 08/09/19 08/10/19 23:59 23:59 23:59 23:59 Intake Total 1788 1296 1300 250 Balance 1788 1296 1300 250 Weight 93 lb 4 oz 94 lb 101 lb 4 oz 99 lb 6 oz Last Vital Signs Temp Pulse Resp BP Pulse Ox 98.6 F 77 18 153/81 100 08/10/19 06:00 08/10/19 06:00 08/10/19 06:00 08/10/19 06:00 08/09/19 21:00 Active Medications Acetaminophen (Tylenol Oral Solution -) 650 mg NGT Q6H PRN PRN Reason: FEVER Last Admin: 08/06/19 18:22 Dose: 650 mg Amoxicillin/Clavulanate Potassium (Augmentin 250 Mg/5 Ml Oral Suspension -) 500 mg PO TIDCM [facility] Last Admin: 08/09/19 17:44 Dose: Not Given Carbidopa/Levodopa (Sinemet 25/100 -) 1 each NGT BID [facility] Last Admin: 08/09/19 22:03 Dose: 1 each Donepezil HCl (Aricept -) 10 mg NGT DAILY [facility] Last Admin: 08/09/19 09:29 Dose: Not Given Heparin Sodium (Porcine) (Heparin -) 5,000 unit SQ BID [facility] Last Admin: 08/09/19 22:01 Dose: 5,000 unit Hydrochlorothiazide (Hctz -) 25 mg NGT DAILY [facility] Last Admin: 08/09/19 09:46 Dose: Not Given Levetiracetam (Keppra -) 500 mg PO BID [facility] Last Admin: 08/09/19 22:03 Dose: 500 mg Lisinopril (Prinivil) 2.5 mg PO DAILY [facility] Last Admin: 08/09/19 09:46 Dose: Not Given Lorazepam (Ativan Injection -) 2 mg IM Q4H PRN PRN Reason: SEIZURES Last Admin: 08/08/19 16:29 Dose: 2 mg Phenytoin Sodium (Dilantin Oral Suspension -) 100 mg NGT BID [facility] Last Admin: 08/09/19 22:01 Dose: 100 mg Valproate Sodium (Depakene -) 750 mg NGT BID [facility] Last Admin: 08/09/19 22:03 Dose: 750 mg Gen: NAD at rest Heart: RRR Lung: scattered rhonchi Abd: soft, nontender Ext: + edema Laboratory Results - last 24 hr 08/09/19 07:35 Neutrophils % (Manual) 62.9 Band Neutrophils % 1.0 Lymphocytes % (Manual) 17.5 D Monocytes % (Manual) 8 Eosinophils % (Manual) 1.0 Basophils % (Manual) 0.0 Myelocytes % (Man) 2 Promyelocytes % (Man) 0 Blast Cells % (Manual) 0 Metamyelocytes 3 H Hypochromia 0 Platelet Estimate Normal Polychromasia 0 Poikilocytosis 0 Anisocytosis 1+ Microcytosis 1+ Macrocytosis 0 A/P s/p Acute Respiratory Failure Breakthrough Seizure Pneumonia likely Aspiration Seizure Disorder +Troponins likely Demand Ischemia h/o CVA Parkinsons Dementia HTN - antibiotics per ID - monitor urine output, creatinine - ativan PRN - continue antiepileptics - aspiration precautions - DVT prophylaxis - continue discussions regarding goals of care Dr Narayanan
[2019-08-10] MEDS: VALPROATE SODIUM 250 MG/5 ML UNIT DOSE CUP NGT SCH ×2 (10:04→22:27)
[2019-08-10] MEDS: HEPARIN NA (PORCINE) 5,000 UNITS/ML 1ML VIAL SQ SCH ×2 (10:04→22:27)
[2019-08-10] MEDS: CARBIDOPA/LEVODOPA 25/100 TABLET (FP) NGT SCH ×2 (10:05→23:13)
[2019-08-10] MEDS: levETIRAcetam 500 MG TABLET (FP) PO SCH ×2 (10:05→23:14)
[2019-08-10] MEDS: PHENYTOIN 100 MG/4 ML U-D CUP NGT SCH ×2 (10:05→23:13)
[2019-08-10] MEDS: DONEPEZIL HCL 10 MG TABLET (FP) NGT SCH (10:05)
[2019-08-10] MEDS: HYDROCHLOROTHIAZIDE 25 MG TABLET (FP) NGT SCH (10:05)
[2019-08-10] MEDS: LISINOPRIL 5 MG TABLET (FP) PO SCH (10:05)
[2019-08-10] MEDS: AMOX TR/POTASSIUM CLAVULANATE 250 MG/5 ML BOTTLE PO SCH ×3 (10:06→17:04)
[2019-08-10] MEDS: DEXTROSE 5%-0.45% SALINE 1,000 ML IV SCH (11:05)
--- NOTE | 2019-08-10 14:59 | PN ---
Progress Note (short form) - Note Progress Note: s/p PEG 08/09 afebrile day #7 antibiotics Vital Signs Period Temp Pulse Resp BP Sys/[place]land Pulse Ox Last 24 Hr 97.9 F-99.5 F 66-80 15-20 128-153/56-81 97-100 cor-rrr lungs decreased bs at bases abd soft,n+GT ext less hand edema CBC, BMP 08/09/19 07:35 08/09/19 07:35 Microbiology 08/03/19 15:20 Blood - Peripheral Venous Blood Culture - Final NO GROWTH AFTER 5 DAYS INCUBATION 08/03/19 13:30 Blood - Peripheral Venous Blood Culture - Final NO GROWTH AFTER 5 DAYS INCUBATION 08/03/19 17:23 Urine - Urine - Catheterized Urine Culture - Final Enterococcus Raffinosus 07/22/19 12:30 Urine - Urine - Catheterized Urine Culture - Final Vr Ec Faecium 07/19/19 09:30 Blood - Peripheral Venous Blood Culture - Final NO GROWTH AFTER 5 DAYS INCUBATION 07/19/19 09:40 Blood - Peripheral Venous Blood Culture - Final NO GROWTH AFTER 5 DAYS INCUBATION 07/17/19 06:45 Urine - Urine Torrez Urine Culture - Final NO GROWTH OBTAINED 07/06/19 11:57 Blood - Peripheral Venous Blood Culture - Final NO GROWTH AFTER 5 DAYS INCUBATION 07/06/19 21:42 Blood - Peripheral Venous Blood Culture - Final NO GROWTH AFTER 5 DAYS INCUBATION 07/08/19 17:45 Urine For Antigen Detection Legionella Antigen - Final 07/08/19 17:45 Urine For Antigen Detection Streptococcus pneumoniae Antigen (M - Final 07/07/19 11:00 Sputum - Endotrachea Suction/Ventilator Gram Stain - Final 07/07/19 11:00 Sputum - Endotrachea Suction/Ventilator Sputum Culture - Final NORMAL RESPIRATORY JULIO 07/06/19 21:40 Urine - Urine Torrez Urine Culture - Final NO GROWTH OBTAINED a/p fevers resolved-day #7 antibiotics, will d/c antibiotics in am s/p gt placement history of seizure s/p respiratory failure history of parkinsons disease Problem List - Problems (1) Seizure disorder Code(s): G40.909 - EPILEPSY, UNSP, NOT INTRACTABLE, WITHOUT STATUS EPILEPTICUS (2) CVA (cerebral vascular accident) Code(s): I63.9 - CEREBRAL INFARCTION, UNSPECIFIED (3) Leukocytosis Code(s): D72.829 - ELEVATED WHITE BLOOD CELL COUNT, UNSPECIFIED (4) Aspiration pneumonia Code(s): J69.0 - PNEUMONITIS DUE TO INHALATION OF FOOD AND VOMIT (5) Respiratory failure Code(s): J96.90 - RESPIRATORY FAILURE, UNSP, UNSP W HYPOXIA OR HYPERCAPNIA
[2019-08-10 18:56] LABS: HEMATOCRIT 26.2 % (32.4-45.2); HEMOGLOBIN 8.9 GM/dL (10.7-15.3); MCH 31.5 pg (25.7-33.7); MCHC 33.9 g/dl (32.0-36.0); MEAN CELL VOLUME 93.1 fl (80-96); MEAN PLT VOLUME 7.6 fl (7.5-11.1); PLATELET COUNT 559 K/MM3 (134-434); RBC 2.82 M/mm3 (3.60-5.2); RDW 16.4 % (11.6-15.6); WHITE BLOOD COUNT 10.8 K/mm3 (4.0-10.0)
[2019-08-10 19:26] LABS: ALBUMIN 1.6 g/dl (3.4-5.0); BILIRUBIN,TOTAL 0.2 mg/dL (0.2-1); BLOOD UREA NITROGEN 8.4 mg/dL (7-18); CREATININE 0.4 mg/dL (0.55-1.3); POTASSIUM 3.3 mmol/L (3.5-5.1); TOT PROT 5.5 g/dl (6.4-8.2)
[2019-08-10] MEDS ORDERED: PT OWN MED DRAWER 7, Y5N ONE (21:51)
--- NOTE | 2019-08-10 22:50 | PN ---
Progress Note, Physician - Current Medication List Current Medications: Active Medications Acetaminophen (Tylenol Oral Solution -) 650 mg NGT Q6H PRN PRN Reason: FEVER Last Admin: 08/06/19 18:22 Dose: 650 mg Amoxicillin/Clavulanate Potassium (Augmentin 250 Mg/5 Ml Oral Suspension -) 500 mg PO TIDCM [facility] Last Admin: 08/10/19 17:04 Dose: 500 mg Carbidopa/Levodopa (Sinemet 25/100 -) 1 each NGT BID [facility] Last Admin: 08/10/19 10:05 Dose: 1 each Donepezil HCl (Aricept -) 10 mg NGT DAILY [facility] Last Admin: 08/10/19 10:05 Dose: 10 mg Heparin Sodium (Porcine) (Heparin -) 5,000 unit SQ BID [facility] Last Admin: 08/10/19 22:27 Dose: 5,000 unit Hydrochlorothiazide (Hctz -) 25 mg NGT DAILY [facility] Last Admin: 08/10/19 10:05 Dose: 25 mg Dextrose/Sodium Chloride (D5-1/2ns -) 1,000 mls @ 50 mls/hr IV ASDIR [facility] Last Admin: 08/10/19 11:05 Dose: 50 mls/hr Levetiracetam (Keppra Oral Solution -) 500 mg NGT BID [facility] Lisinopril (Prinivil) 2.5 mg PO DAILY [facility] Last Admin: 08/10/19 10:05 Dose: 2.5 mg Lorazepam (Ativan Injection -) 2 mg IM Q4H PRN PRN Reason: SEIZURES Last Admin: 08/08/19 16:29 Dose: 2 mg Phenytoin Sodium (Dilantin Oral Suspension -) 100 mg NGT BID [facility] Last Admin: 08/10/19 10:05 Dose: 100 mg Valproate Sodium (Depakene -) 750 mg NGT BID [facility] Last Admin: 08/10/19 22:27 Dose: 750 mg - Objective Vital Signs: Vital Signs Temperature 99.6 F 08/10/19 21:39 Pulse Rate 72 08/10/19 21:39 Respiratory Rate 21 H 08/10/19 21:39 Blood Pressure 133/51 L 08/10/19 21:39 O2 Sat by Pulse Oximetry (%) 99 08/10/19 09:00 Labs: CBC, BMP 08/10/19 18:30 08/10/19 18:30 INR, PTT INR 0.95 (0.83-1.09) 08/08/19 08:16 Problem List - Problems (1) Dementia Code(s): F03.90 - UNSPECIFIED DEMENTIA WITHOUT BEHAVIORAL DISTURBANCE (2) Pneumonia Code(s): J18.9 - PNEUMONIA, UNSPECIFIED ORGANISM (3) Seizure disorder Code(s): G40.909 - EPILEPSY, UNSP, NOT INTRACTABLE, WITHOUT STATUS EPILEPTICUS (4) HTN (hypertension) Code(s): I10 - ESSENTIAL (PRIMARY) HYPERTENSION (5) Parkinsons Code(s): G20 - PARKINSON'S DISEASE
[2019-08-10] MEDS: levETIRAcetam 500 MG/5 ML ORAL SOLUTION (UNIT-DOSE CUPS) NGT SCH (23:00)
[2019-08-11 07:57] LABS: BASO % 0.5 % (0-2.0); EOS % 1.2 % (0-4.5); HEMATOCRIT 25.1 % (32.4-45.2); HEMOGLOBIN 8.6 GM/dL (10.7-15.3); LYMPH % 17.3 % (8-40); MCH 31.8 pg (25.7-33.7); MCHC 34.2 g/dl (32.0-36.0); MEAN CELL VOLUME 93.1 fl (80-96); MEAN PLT VOLUME 7.9 fl (7.5-11.1); PLATELET COUNT 547 K/MM3 (134-434); RDW 16.2 % (11.6-15.6); WHITE BLOOD COUNT 9.2 K/mm3 (4.0-10.0)
[2019-08-11 08:21] LABS: ALBUMIN 1.6 g/dl (3.4-5.0); ALK PHOS 60 U/L (45-117); ANION GAP 7 MMOL/L (8-16); BILIRUBIN,TOTAL 0.3 mg/dL (0.2-1); BLOOD UREA NITROGEN 6.3 mg/dL (7-18); CALCIUM 8.2 mg/dL (8.5-10.1); CHLORIDE 87 mmol/L (98-107); CO2 34 mmol/L (21-32); CREATININE 0.4 mg/dL (0.55-1.3); GLUCOSE,RANDOM 83 mg/dL (74-106); POTASSIUM 3.2 mmol/L (3.5-5.1); SGOT/AST 43 U/L (15-37); SGPT/ALT < 6 U/L (13-61); SODIUM 128 mmol/L (136-145); TOT PROT 5.4 g/dl (6.4-8.2)
[2019-08-11] MEDS: AMOX TR/POTASSIUM CLAVULANATE 250 MG/5 ML BOTTLE PO SCH (09:00)
[2019-08-11] MEDS: LISINOPRIL 5 MG TABLET (FP) PO SCH (10:53)
[2019-08-11] MEDS: levETIRAcetam 500 MG/5 ML ORAL SOLUTION (UNIT-DOSE CUPS) NGT SCH (10:53)
[2019-08-11] MEDS: DONEPEZIL HCL 10 MG TABLET (FP) NGT SCH (10:53)
[2019-08-11] MEDS: LORazepam 2 MG/ML SDV VIAL IM PRN (10:53)
[2019-08-11] MEDS: HEPARIN NA (PORCINE) 5,000 UNITS/ML 1ML VIAL SQ SCH ×2 (10:53→22:10)
[2019-08-11] MEDS: HYDROCHLOROTHIAZIDE 25 MG TABLET (FP) NGT SCH (10:53)
[2019-08-11] MEDS: VALPROATE SODIUM 250 MG/5 ML UNIT DOSE CUP NGT SCH (10:53)
[2019-08-11] MEDS: CARBIDOPA/LEVODOPA 25/100 TABLET (FP) NGT SCH (10:53)
--- NOTE | 2019-08-11 11:17 | PN ---
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 Initial presentation to hospital was , she initally noted to have left sided face droopiness followed by generalized tonic clonic seizure, she was brought to hospital and was intubated. Patient had ct head, which was no acute findings. Patient has not had any episode of seizure and eeg is pending. No more seizure. - Current Medication List Current Medications: Active Medications Acetaminophen (Tylenol Oral Solution -) 650 mg NGT Q6H PRN PRN Reason: FEVER Last Admin: 08/06/19 18:22 Dose: 650 mg Amoxicillin/Clavulanate Potassium (Augmentin 250 Mg/5 Ml Oral Suspension -) 500 mg PO TIDCM [facility] Last Admin: 08/10/19 17:04 Dose: 500 mg Carbidopa/Levodopa (Sinemet 25/100 -) 1 each NGT BID [facility] Last Admin: 08/11/19 10:53 Dose: 1 each Donepezil HCl (Aricept -) 10 mg NGT DAILY [facility] Last Admin: 08/11/19 10:53 Dose: 10 mg Heparin Sodium (Porcine) (Heparin -) 5,000 unit SQ BID [facility] Last Admin: 08/11/19 10:53 Dose: 5,000 unit Hydrochlorothiazide (Hctz -) 25 mg NGT DAILY [facility] Last Admin: 08/11/19 10:53 Dose: 25 mg Dextrose/Sodium Chloride (D5-1/2ns -) 1,000 mls @ 50 mls/hr IV ASDIR [facility] Last Admin: 08/10/19 11:05 Dose: 50 mls/hr Levetiracetam (Keppra Oral Solution -) 500 mg NGT BID [facility] Last Admin: 08/11/19 10:53 Dose: 500 mg Lisinopril (Prinivil) 2.5 mg PO DAILY [facility] Last Admin: 08/11/19 10:53 Dose: 2.5 mg Lorazepam (Ativan Injection -) 2 mg IM Q4H PRN PRN Reason: SEIZURES Last Admin: 08/11/19 10:53 Dose: 2 mg Phenytoin Sodium (Dilantin Oral Suspension -) 100 mg NGT BID [facility] Last Admin: 08/10/19 23:13 Dose: 100 mg Valproate Sodium (Depakene -) 750 mg NGT BID [facility] Last Admin: 08/11/19 10:53 Dose: 750 mg - Objective Vital Signs: Vital Signs Temperature 98.7 F 08/11/19 10:00 Pulse Rate 65 08/11/19 10:00 Respiratory Rate 19 08/11/19 10:00 Blood Pressure 154/41 L 08/11/19 10:00 O2 Sat by Pulse Oximetry (%) 99 08/10/19 21:00 Eyes: Yes: WNL, Conjunctiva Clear, EOM Intact HENT: Yes: WNL, Atraumatic, Normocephalic Neck: Yes: WNL, Supple, Trachea Midline Cardiovascular: Yes: WNL, Regular Rate and Rhythm Respiratory: Yes: WNL, Regular, CTA Bilaterally Gastrointestinal: Yes: WNL, Normal Bowel Sounds Genitourinary: Yes: WNL Musculoskeletal: Yes: WNL Extremities: Yes: WNL Edema: No Integumentary: Yes: WNL ...Motor Strength: WNL Psychiatric: Yes: WNL Labs: CBC, BMP 08/11/19 06:40 08/11/19 06:40 INR, PTT INR 0.95 (0.83-1.09) 08/08/19 08:16 Assessment/Plan - Problems (1) Diastolic CHF Assessment/Plan: On HCTZ F/u BUN/Cr, electrolytes (being repleted), daily weight, Is and Os. Code(s): I50.30 - UNSPECIFIED DIASTOLIC (CONGESTIVE) HEART FAILURE (2) CVA (cerebral vascular accident) Code(s): I63.9 - CEREBRAL INFARCTION, UNSPECIFIED (3) Hypokalemia Assessment/Plan: Repleted K+, f/u in am, and keep 4-4.5 (on HCTZ). Repleted Mg2+, and keep 2-2.4 Keep PO4 2.5-4.9 Code(s): E87.6 - HYPOKALEMIA (4) Leukocytosis Code(s): D72.829 - ELEVATED WHITE BLOOD CELL COUNT, UNSPECIFIED (5) Respiratory failure Code(s): J96.90 - RESPIRATORY FAILURE, UNSP, UNSP W HYPOXIA OR HYPERCAPNIA (6) Alzheimer's dementia Code(s): G30.9 - ALZHEIMER'S DISEASE, UNSPECIFIED; F02.80 - DEMENTIA IN OTH DISEASES CLASSD ELSWHR W/O BEHAVRL DISTURB (7) HTN (hypertension) Code(s): I10 - ESSENTIAL (PRIMARY) HYPERTENSION (8) Tachycardia Assessment/Plan: multifactorial, including fever, dehydration. Presently improved; HR now in 80s- 90s bpm. EKG: NSR: nonspecific T wave changes. Repleted electrolytes; f/u levels. TSH 0.76 (in 2018). Code(s): R00.0 - TACHYCARDIA, UNSPECIFIED (9) Hypoalbuminemia Assessment/Plan: portends poor prognosis. F/u nutritional status. Code(s): E88.09 - OTH DISORDERS OF PLASMA-PROTEIN METABOLISM, NEC (10) Parkinsons Assessment/Plan: on levocarbidopa Code(s): G20 - PARKINSON'S DISEASE (11) Kyphoscoliosis Code(s): M41.9 - SCOLIOSIS, UNSPECIFIED
[2019-08-11] MEDS: DEXTROSE 5%-0.45% SALINE 1,000 ML IV SCH (11:21)
[2019-08-11] MEDS ORDERED: ACETAMINOPHEN 650 MG/20.3 ML ORAL SOLUTION (CUPS) PEG PRN (11:27)
[2019-08-11 11:42] LABS: ANISOCYTOSIS 1+; MACROCYTOSIS 1+; OVALOCYTE 1+; PLATELET ESTIMATE INCREASED
[2019-08-11] MEDS: PHENYTOIN 100 MG/4 ML U-D CUP NGT SCH (11:42)
[2019-08-11] MEDS ORDERED: AMOX TR/POTASSIUM CLAVULANATE 250 MG/5 ML BOTTLE PEG SCH (12:00)
[2019-08-11 12:31] LABS: MAGNESIUM 1.7 mg/dL (1.8-2.4)
--- NOTE | 2019-08-11 13:26 | PN ---
Progress Note (short form) - Note Progress Note: PULMONARY Pt nonverbal. No fevers recorded. Vital Signs Period Temp Pulse Resp BP Sys/[place] Pulse Ox Last 24 Hr 97.9 F-99.6 F 65-74 18-22 128-157/41-73 99 Gen: NAD at rest Heart: RRR Lung: scattered rhonchi Abd: soft, nontender Ext: + edema CBC, BMP 08/11/19 06:40 08/11/19 06:40 Active Medications Acetaminophen (Tylenol Oral Solution -) 650 mg PEG Q6H PRN PRN Reason: FEVER Amoxicillin/Clavulanate Potassium (Augmentin 250 Mg/5 Ml Oral Suspension -) 500 mg PEG TIDCM [facility] Carbidopa/Levodopa (Sinemet 25/100 -) 1 each PEG BID [facility] Donepezil HCl (Aricept -) 10 mg PEG DAILY [facility] Heparin Sodium (Porcine) (Heparin -) 5,000 unit SQ BID [facility] Last Admin: 08/11/19 10:53 Dose: 5,000 unit Hydrochlorothiazide (Hctz -) 25 mg PEG DAILY [facility] Dextrose/Sodium Chloride (D5-1/2ns -) 1,000 mls @ 50 mls/hr IV ASDIR [facility] Last Admin: 08/11/19 11:21 Dose: Not Given Levetiracetam (Keppra Oral Solution -) 500 mg PEG BID [facility] Lisinopril (Prinivil) 2.5 mg PEG DAILY [facility] Phenytoin Sodium (Dilantin Oral Suspension -) 100 mg PEG BID [facility] Valproate Sodium (Depakene -) 750 mg PEG BID [facility] A/P s/p Acute Respiratory Failure Breakthrough Seizure Pneumonia likely Aspiration Seizure Disorder +Troponins likely Demand Ischemia Hyponatremia h/o CVA Parkinsons Dementia HTN - antibiotics per ID - monitor urine output, creatinine - change IVF from hypotonic solution - ativan PRN - continue antiepileptics - aspiration precautions - DVT prophylaxis - continue discussions regarding goals of care, recommend palliative care
[2019-08-11] MEDS ORDERED: SODIUM CHLORIDE 0.9%/KCL 20 MEQ/1,000 ML INFUS.BAG IV SCH (13:30)
--- NOTE | 2019-08-11 13:57 | PN ---
Progress Note (short form) - Note Progress Note: s/p PEG 08/09 +occasional facial twitching afebrile day #8 antibiotics Vital Signs Period Temp Pulse Resp BP Sys/[place] Pulse Ox Last 24 Hr 97.9 F-99.6 F 65-74 18-22 128-157/41-73 99 cor-rrr lungs decrased bs at bases abd soft,nt +GT ext no edema CBC, BMP 08/11/19 06:40 08/11/19 06:40 Microbiology 08/03/19 15:20 Blood - Peripheral Venous Blood Culture - Final NO GROWTH AFTER 5 DAYS INCUBATION 08/03/19 13:30 Blood - Peripheral Venous Blood Culture - Final NO GROWTH AFTER 5 DAYS INCUBATION 08/03/19 17:23 Urine - Urine - Catheterized Urine Culture - Final Enterococcus Raffinosus 07/22/19 12:30 Urine - Urine - Catheterized Urine Culture - Final Vr Ec Faecium 07/19/19 09:30 Blood - Peripheral Venous Blood Culture - Final NO GROWTH AFTER 5 DAYS INCUBATION 07/19/19 09:40 Blood - Peripheral Venous Blood Culture - Final NO GROWTH AFTER 5 DAYS INCUBATION 07/17/19 06:45 Urine - Urine Torrez Urine Culture - Final NO GROWTH OBTAINED 07/06/19 11:57 Blood - Peripheral Venous Blood Culture - Final NO GROWTH AFTER 5 DAYS INCUBATION 07/06/19 21:42 Blood - Peripheral Venous Blood Culture - Final NO GROWTH AFTER 5 DAYS INCUBATION 07/08/19 17:45 Urine For Antigen Detection Legionella Antigen - Final 07/08/19 17:45 Urine For Antigen Detection Streptococcus pneumoniae Antigen (M - Final 07/07/19 11:00 Sputum - Endotrachea Suction/Ventilator Gram Stain - Final 07/07/19 11:00 Sputum - Endotrachea Suction/Ventilator Sputum Culture - Final NORMAL RESPIRATORY JULIO 07/06/19 21:40 Urine - Urine Torrez Urine Culture - Final NO GROWTH OBTAINED Current Medications Acetaminophen (Tylenol Oral Solution -) 650 mg PEG Q6H PRN PRN Reason: FEVER Amoxicillin/Clavulanate Potassium (Augmentin 250 Mg/5 Ml Oral Suspension -) 500 mg PEG TIDCM [facility] Carbidopa/Levodopa (Sinemet 25/100 -) 1 each PEG BID [facility] Donepezil HCl (Aricept -) 10 mg PEG DAILY [facility] Heparin Sodium (Porcine) (Heparin -) 5,000 unit SQ BID [facility] Last Admin: 08/11/19 10:53 Dose: 5,000 unit Hydrochlorothiazide (Hctz -) 25 mg PEG DAILY [facility] Potassium Chloride/Sodium Chloride (Ns+20 Meq Kcl -) 20 meq in 1,000 mls @ 75 mls/hr IV ASDIR [facility] Levetiracetam (Keppra Oral Solution -) 500 mg PEG BID [facility] Lisinopril (Prinivil) 2.5 mg PEG DAILY [facility] Phenytoin Sodium (Dilantin Oral Suspension -) 100 mg PEG BID [facility] Valproate Sodium (Depakene -) 750 mg PEG BID [facility] a/p fevers resolved-day #8 antibiotics, will d/c today s/p gt placement history of seizure-facial twitching noted, nurse informed, she will notify PMD s/p respiratory failure history of parkinsons disease please call back if needed Problem List - Problems (1) Seizure disorder Code(s): G40.909 - EPILEPSY, UNSP, NOT INTRACTABLE, WITHOUT STATUS EPILEPTICUS (2) CVA (cerebral vascular accident) Code(s): I63.9 - CEREBRAL INFARCTION, UNSPECIFIED (3) Leukocytosis Code(s): D72.829 - ELEVATED WHITE BLOOD CELL COUNT, UNSPECIFIED (4) Aspiration pneumonia Code(s): J69.0 - PNEUMONITIS DUE TO INHALATION OF FOOD AND VOMIT (5) Respiratory failure Code(s): J96.90 - RESPIRATORY FAILURE, UNSP, UNSP W HYPOXIA OR HYPERCAPNIA
[2019-08-11] MEDS ORDERED: LORazepam 2 MG/ML SDV VIAL IM PRN (14:59)
[2019-08-11] MEDS ORDERED: POTASSIUM CHLORIDE ORAL LIQUID 20 MEQ/15 ML PO ONE (16:06)
--- NOTE | 2019-08-11 20:59 | PN ---
Progress Note, Physician History of Present Illness: Some twitching noted today but was given lorazepam and resolved - Current Medication List Current Medications: Active Medications Acetaminophen (Tylenol Oral Solution -) 650 mg PEG Q6H PRN PRN Reason: FEVER Last Admin: 08/11/19 20:17 Dose: 650 mg Carbidopa/Levodopa (Sinemet 25/100 -) 1 each PEG BID [facility] Donepezil HCl (Aricept -) 10 mg PEG DAILY [facility] Heparin Sodium (Porcine) (Heparin -) 5,000 unit SQ BID [facility] Last Admin: 08/11/19 10:53 Dose: 5,000 unit Hydrochlorothiazide (Hctz -) 25 mg PEG DAILY [facility] Levetiracetam (Keppra Oral Solution -) 500 mg PEG BID [facility] Lisinopril (Prinivil) 2.5 mg PEG DAILY [facility] Lorazepam (Ativan Injection -) 2 mg IM Q4H PRN PRN Reason: SEIZURE Last Admin: 08/11/19 15:23 Dose: 2 mg Phenytoin Sodium (Dilantin Oral Suspension -) 100 mg PEG BID [facility] Potassium Chloride (Potassium Chloride Oral Liquid) 20 meq PO BID [facility] Valproate Sodium (Depakene -) 750 mg PEG BID [facility] - Objective Vital Signs: Vital Signs Temperature 100.2 F H 08/11/19 20:44 Pulse Rate 68 08/11/19 20:44 Respiratory Rate 20 08/11/19 20:44 Blood Pressure 119/51 L 08/11/19 20:44 O2 Sat by Pulse Oximetry (%) 99 08/11/19 09:00 Neck: Yes: WNL, Supple Cardiovascular: Yes: WNL, Regular Rate and Rhythm Respiratory: Yes: WNL, Regular, CTA Bilaterally Gastrointestinal: Yes: WNL, Normal Bowel Sounds, Soft, Other ((+) PEG) Labs: CBC, BMP 08/11/19 06:40 08/11/19 06:40 INR, PTT INR 0.95 (0.83-1.09) 08/08/19 08:16 Problem List - Problems (1) Dementia Assessment/Plan: Cont aricept S/P PEG placement and feedings started DC planning for am Code(s): F03.90 - UNSPECIFIED DEMENTIA WITHOUT BEHAVIORAL DISTURBANCE (2) Pneumonia Assessment/Plan: CXR showed rt infitrate/pleural effusions Cultures remain negative Augmentin dc'ed Code(s): J18.9 - PNEUMONIA, UNSPECIFIED ORGANISM (3) Seizure disorder Assessment/Plan: Cont keppra/phenytoin/valproate Repeat CT scan head did not show any acute pathology GI consult noted and family to discuss about IR placing feeding tube At this point w/ infectious process will speak w/ IR about feeding tube placement Code(s): G40.909 - EPILEPSY, UNSP, NOT INTRACTABLE, WITHOUT STATUS EPILEPTICUS (4) HTN (hypertension) Assessment/Plan: BP stable Cont HCtz Code(s): I10 - ESSENTIAL (PRIMARY) HYPERTENSION (5) Parkinsons Assessment/Plan: Cont sinemet Code(s): G20 - PARKINSON'S DISEASE
[2019-08-11] MEDS ORDERED: PT OWN MED DRAWER 7, Y5N ONE ×2 (21:57→21:58)
[2019-08-11] MEDS: VALPROATE SODIUM 250 MG/5 ML UNIT DOSE CUP PEG SCH (22:05)
[2019-08-11] MEDS: levETIRAcetam 500 MG/5 ML ORAL SOLUTION (UNIT-DOSE CUPS) PEG SCH (22:06)
[2019-08-11] MEDS: CARBIDOPA/LEVODOPA 25/100 TABLET (FP) PEG SCH (22:07)
[2019-08-11] MEDS: POTASSIUM CHLORIDE ORAL LIQUID 20 MEQ/15 ML PO SCH (22:07)
[2019-08-11] MEDS: PHENYTOIN 100 MG/4 ML U-D CUP PEG SCH (22:19)
[2019-08-12 08:15] LABS: BASO % 0.6 % (0-2.0); HEMATOCRIT 24.5 % (32.4-45.2); HEMOGLOBIN 8.5 GM/dL (10.7-15.3); LYMPH % 17.7 % (8-40); MCH 32.3 pg (25.7-33.7); MCHC 34.5 g/dl (32.0-36.0); MEAN CELL VOLUME 93.6 fl (80-96); MEAN PLT VOLUME 7.9 fl (7.5-11.1); MONO % 20.2 % (3.8-10.2); NEUT % 59.5 % (42.8-82.8); PLATELET COUNT 464 K/MM3 (134-434); RBC 2.62 M/mm3 (3.60-5.2); RDW 16.7 % (11.6-15.6)
[2019-08-12 08:54] LABS: ALBUMIN 1.5 g/dl (3.4-5.0); ALK PHOS 60 U/L (45-117); ANION GAP 6 MMOL/L (8-16); BILIRUBIN,TOTAL 0.2 mg/dL (0.2-1); CALCIUM 7.8 mg/dL (8.5-10.1); CHLORIDE 95 mmol/L (98-107); CO2 32 mmol/L (21-32); CREATININE 0.5 mg/dL (0.55-1.3); GLUCOSE,RANDOM 80 mg/dL (74-106); POTASSIUM 4.2 mmol/L (3.5-5.1); SGOT/AST 42 U/L (15-37); SGPT/ALT < 6 U/L (13-61); SODIUM 133 mmol/L (136-145); TOT PROT 5.2 g/dl (6.4-8.2)
--- NOTE | 2019-08-12 09:23 | PN ---
Progress Note (short form) - Note Progress Note: Lethargic and non-verbal. Breathing is non-labored. Intermittent twitching noted that responds to BZ. Intake & Output 08/09/19 08/10/19 08/11/19 08/12/19 23:59 23:59 23:59 23:59 Intake Total 6356 615 7014 600 Balance 8638 572 8872 600 Weight 101 lb 4 oz 99 lb 6 oz 87 lb 14.4 oz 89 lb 2 oz Last Vital Signs Temp Pulse Resp BP Pulse Ox 98.5 F 68 18 99/52 L 99 08/12/19 06:00 08/12/19 06:00 08/12/19 06:00 08/12/19 06:00 08/11/19 21:00 Active Medications Acetaminophen (Tylenol Oral Solution -) 650 mg PEG Q6H PRN PRN Reason: FEVER Last Admin: 08/11/19 20:17 Dose: 650 mg Carbidopa/Levodopa (Sinemet 25/100 -) 1 each PEG BID [facility] Last Admin: 08/11/19 22:07 Dose: 1 each Donepezil HCl (Aricept -) 10 mg PEG DAILY [facility] Heparin Sodium (Porcine) (Heparin -) 5,000 unit SQ BID [facility] Last Admin: 08/11/19 22:10 Dose: 5,000 unit Hydrochlorothiazide (Hctz -) 25 mg PEG DAILY [facility] Levetiracetam (Keppra Oral Solution -) 500 mg PEG BID [facility] Last Admin: 08/11/19 22:06 Dose: 500 mg Lisinopril (Prinivil) 2.5 mg PEG DAILY [facility] Lorazepam (Ativan Injection -) 2 mg IM Q4H PRN PRN Reason: SEIZURE Last Admin: 08/11/19 15:23 Dose: 2 mg Phenytoin Sodium (Dilantin Oral Suspension -) 100 mg PEG BID [facility] Last Admin: 08/11/19 22:19 Dose: 100 mg Potassium Chloride (Potassium Chloride Oral Liquid) 20 meq PO BID [facility] Last Admin: 08/11/19 22:07 Dose: 20 meq Valproate Sodium (Depakene -) 750 mg PEG BID [facility] Last Admin: 08/11/19 22:05 Dose: 750 mg Gen: Lethargic, NAD Heart: RRR Lung: scattered rhonchi Abd: soft, nontender Ext: + edema Laboratory Results - last 24 hr 08/11/19 08/11/19 08/12/19 06:40 06:40 06:32 WBC 8.0 RBC 2.62 L Hgb 8.5 L Hct 24.5 L MCV 93.6 MCH 32.3 MCHC 34.5 RDW 16.7 H Plt Count 464 H MPV 7.9 Absolute Neuts (auto) 4.8 Neutrophils % 59.5 Neutrophils % (Manual) 65.1 Band Neutrophils % 0.9 Lymphocytes % 17.7 Lymphocytes % (Manual) 17.0 Monocytes % 20.2 H Monocytes % (Manual) 14 H Eosinophils % 2.0 Eosinophils % (Manual) 1.9 D Basophils % 0.6 Basophils % (Manual) 0.0 Myelocytes % (Man) 0 D Promyelocytes % (Man) 0 Blast Cells % (Manual) 0 Nucleated RBC % 0 Metamyelocytes 1 D Hypochromia 0 Platelet Estimate Increased Polychromasia 0 Poikilocytosis 0 Anisocytosis 1+ Microcytosis 0 Macrocytosis 1+ Ovalocytes 1+ Sodium 128 L Potassium 3.2 L Chloride 87 L Carbon Dioxide 34 H Anion Gap 7 L BUN 6.3 L Creatinine 0.4 L Est GFR (CKD-EPI)AfAm 108.54 Est GFR (CKD-EPI)NonAf 93.65 Random Glucose 83 Calcium 8.2 L Phosphorus 3.0 Magnesium 1.7 L Total Bilirubin 0.3 AST 43 H ALT < 6 L Alkaline Phosphatase 60 Total Protein 5.4 L Albumin 1.6 L 08/12/19 06:32 WBC RBC Hgb Hct MCV MCH MCHC RDW Plt Count MPV Absolute Neuts (auto) Neutrophils % Neutrophils % (Manual) Band Neutrophils % Lymphocytes % Lymphocytes % (Manual) Monocytes % Monocytes % (Manual) Eosinophils % Eosinophils % (Manual) Basophils % Basophils % (Manual) Myelocytes % (Man) Promyelocytes % (Man) Blast Cells % (Manual) Nucleated RBC % Metamyelocytes Hypochromia Platelet Estimate Polychromasia Poikilocytosis Anisocytosis Microcytosis Macrocytosis Ovalocytes Sodium 133 L Potassium 4.2 Chloride 95 L Carbon Dioxide 32 Anion Gap 6 L BUN 7.0 Creatinine 0.5 L Est GFR (CKD-EPI)AfAm 100.86 Est GFR (CKD-EPI)NonAf 87.02 Random Glucose 80 Calcium 7.8 L Phosphorus Magnesium Total Bilirubin 0.2 AST 42 H ALT < 6 L Alkaline Phosphatase 60 Total Protein 5.2 L Albumin 1.5 L A/P s/p Acute Respiratory Failure Breakthrough Seizure Pneumonia likely Aspiration Seizure Disorder +Troponins likely Demand Ischemia h/o CVA Parkinsons Dementia HTN - Off antibiotics per ID - BZ PRN - continue antiepileptics - aspiration precautions - DVT prophylaxis - continue discussions regarding goals of care - DC planning Dr Narayanan
[2019-08-12] MEDS ORDERED: HYDROCHLOROTHIAZIDE 25 MG TABLET (FP) PEG SCH (10:00)
[2019-08-12] MEDS ORDERED: LISINOPRIL 5 MG TABLET (FP) PEG SCH (10:00)
[2019-08-12] MEDS ORDERED: DONEPEZIL HCL 10 MG TABLET (FP) PEG SCH (10:00)
[2019-08-12] MEDS ORDERED: PT OWN MED DRAWER 7, Y5N ONE (10:22)
[2019-08-12] MEDS: CARBIDOPA/LEVODOPA 25/100 TABLET (FP) PEG SCH (10:29)
[2019-08-12] MEDS: levETIRAcetam 500 MG/5 ML ORAL SOLUTION (UNIT-DOSE CUPS) PEG SCH (10:29)
[2019-08-12] MEDS: VALPROATE SODIUM 250 MG/5 ML UNIT DOSE CUP PEG SCH (10:29)
[2019-08-12] MEDS: PHENYTOIN 100 MG/4 ML U-D CUP PEG SCH (10:30)
[2019-08-12] MEDS: HEPARIN NA (PORCINE) 5,000 UNITS/ML 1ML VIAL SQ SCH (10:31)
[2019-08-12] MEDS: POTASSIUM CHLORIDE ORAL LIQUID 20 MEQ/15 ML PO SCH (10:32)
[2019-08-12 11:31] LABS: ANISOCYTOSIS 0; MACROCYTOSIS 0; PLATELET ESTIMATE NORMAL
[2019-08-12 11:55] VITALS: BP 133/51; PULSE 63; TEMP 97.9
[2019-08-13 02:25] VITALS: BMI 18.3
== END 2019-08-12 12:50 | DRG 208 ==
LOC: JER 21:14 → JERBED 22:37 → JICU 23:50 → J2W 07-11 19:47 → J6S 07-16 16:47 → JICU 07-17 08:35 → J4W 07-20 00:08 → J5S 07-20 16:56 → J6S 07-24 18:43
PROVIDERS: ADMIT Internal Medicine; ATTEND Internal Medicine
PROC: 5A1945Z Respiratory Ventilation, 24-96 Consecutive Hours (ICD-10-PCS; principal; 2019-07-06)
PROC: 0BH17EZ Insertion of Endotracheal Airway into Trachea, Via Natural or Artificial Opening (ICD-10-PCS; 2019-07-06)
PROC: 4A00X4Z Measurement of Central Nervous Electrical Activity, External Approach (ICD-10-PCS; 2019-07-26)
PROC: 0DH63UZ Insertion of Feeding Device into Stomach, Percutaneous Approach (ICD-10-PCS; 2019-08-09)
PROC: 3E0G76Z Introduction of Nutritional Substance into Upper GI, Via Natural or Artificial Opening (ICD-10-PCS; 2019-08-09)
DX: J96.01 Acute respiratory failure with hypoxia (principal); J69.0 Pneumonitis due to inhalation of food and vomit; I69.351 Hemiplegia and hemiparesis following cerebral infarction affecting right dominant side; I24.8 Other forms of acute ischemic heart disease; I50.30 Unspecified diastolic (congestive) heart failure; G20 Parkinson's disease; E78.5 Hyperlipidemia, unspecified; G30.9 Alzheimer's disease, unspecified; F02.80 Dementia in other diseases classified elsewhere, unspecified severity, without behavioral disturbance, psychotic disturbance, mood disturbance, and anxiety; F32.9 Major depressive disorder, single episode, unspecified; G40.901 Epilepsy, unspecified, not intractable, with status epilepticus; E87.6 Hypokalemia; E88.09 Other disorders of plasma-protein metabolism, not elsewhere classified; M41.9 Scoliosis, unspecified; I11.0 Hypertensive heart disease with heart failure
CPT/HCPCS: 31500; 36415; 36600; 49440; 70450-TC; 71045-TC-FY; 74018-TC-FY; 74150-TC; 80048; 80053; 80164; 80177; 81003; 82375; 82465; 82550; 82803; 82962; 83050; 83605; 83718; 83721; 83735; 84100; 84132; 84443; 84478; 84484; 85025; 85027; 85610; 86850; 86900; 86901; 87040; 87070; 87086; 87186; 87205; 87899; 93005; 93010; 94002; 94640; 95816; 99285-25; J0131; J1644; J7030

== ENCOUNTER 2019-08-14 18:54 | Inpatient (IN) | payer OTHER ==
[2019-08-14] MEDS ORDERED: VANCOMYCIN 1 GM in D5W (PRE-DOCKED) 1,000 MG/250 ML IVPB ONE (19:32)
[2019-08-14] MEDS ORDERED: PIPERACILLIN/TAZOB 3.375 GM 3.375 GM in DEXTROSE 5%-WATER - 50 ML IVPB ONE (19:33)
[2019-08-14 19:44] LABS: VENOUS PC02 48.2 mmHg (38-52); VENOUS PH 7.43 (7.31-7.41); VENOUS PO2 78.8 mmHg (28-48)
[2019-08-14 19:50] LABS: BASO % 0.2 % (0-2.0); EOS % 0.2 % (0-4.5); HEMATOCRIT 30.2 % (32.4-45.2); LYMPH % 3.9 % (8-40); MCH 31.2 pg (25.7-33.7); MCHC 33.2 g/dl (32.0-36.0); MEAN PLT VOLUME 7.6 fl (7.5-11.1); MONO % 5.9 % (3.8-10.2); NEUT % 89.8 % (42.8-82.8); PLATELET COUNT 574 K/MM3 (134-434); RBC 3.22 M/mm3 (3.60-5.2); RDW 16.3 % (11.6-15.6); WHITE BLOOD COUNT 17.4 K/mm3 (4.0-10.0)
[2019-08-14] MEDS ORDERED: VANCOMYCIN 1 GRAM (PRE-DOCKED) 1,000 MG/250 ML BAG IVPB ONE (19:58)
[2019-08-14] MEDS ORDERED: PIPERACILLIN/TAZOB 3.375 GM 3.375 GM/50 ML BAG IVPB ONE (19:58)
[2019-08-14 20:05] LABS: INR 1.01 (0.83-1.09); PROTHROMBIN TIME (PATIENT) 11.9 SEC (9.7-13.0)
[2019-08-14 20:06] LABS: PH,URINE 8.5 (5.0-8.0); URINE APPEARANCE Clear; URINE BILIRUBIN Negative (NEGATIVE); URINE COLOR Yellow; URINE GLUCOSE (UA) Negative (NEGATIVE); URINE KETONE Negative (NEGATIVE); URINE LEUK ESTERASE Negative (NEGATIVE); URINE NITRITE Negative (NEGATIVE); URINE PROTEIN 2+ (NEGATIVE); URINE UROBILINOGEN 0.2 mg/dL (0.2-1.0)
[2019-08-14 20:07] LABS: ACTIVATED PTT 33.3 SECONDS (25.2-36.5)
[2019-08-14 20:10] LABS: ALK PHOS 76 U/L (45-117); ANION GAP 6 MMOL/L (8-16); BILIRUBIN,TOTAL 0.2 mg/dL (0.2-1); BLOOD UREA NITROGEN 10.7 mg/dL (7-18); CALCIUM 8.6 mg/dL (8.5-10.1); CHLORIDE 92 mmol/L (98-107); CO2 32 mmol/L (21-32); CREATININE 0.7 mg/dL (0.55-1.3); GLUCOSE,RANDOM 121 mg/dL (74-106); POTASSIUM 4.3 mmol/L (3.5-5.1); SGOT/AST 56 U/L (15-37); SGPT/ALT < 6 U/L (13-61); SODIUM 129 mmol/L (136-145); TOT PROT 6.3 g/dl (6.4-8.2)
[2019-08-14] MEDS ORDERED: LACTATED RINGERS SOLUTION 1000 ML INFUS.BAG IV ONE (20:11)
--- NOTE | 2019-08-14 20:16 | PDOC ---
History of Present Illness - General Chief Complaint: SIRS, Suspected/Possible Stated Complaint: FEVER Time Seen by Provider: 08/14/19 19:18 - History of Present Illness Initial Comments: 08/14/19 20:08 89 yo G PMH CVA, dementia, Parkinson's disease, seizure disorder, nonverbal at baseline, BIBEMS for fever. Reportedly seen to be 104F orally at senior care, found to be 100.9F rectally. Unable to evaluate ROS. Past History - Past Medical History Allergies/Adverse Reactions: Allergies Allergy/AdvReac Type Severity Reaction Status Date / Time No Known Allergies Allergy Verified 08/14/19 19:26 Home Medications: Ambulatory Orders Donepezil HCl [Aricept] 10 mg PO DAILY 07/05/18 Escitalopram Oxalate [Lexapro -] 10 mg PO DAILY 07/05/18 Olmesartan Medoxomil [Benicar] 20 mg PO DAILY 07/05/18 Quetiapine Fumarate [Seroquel -] 25 mg PO BID 07/05/18 Acetaminophen [Tylenol .Regular Strength -] 650 mg PO Q6H PRN tablet 07/12/18 Carbidopa/Levodopa 25/100 [Sinemet 25/100 -] 1 each PO BID tablet 07/12/18 levETIRAcetam [Keppra -] 750 mg PO BID tablet 07/12/18 Hydrochlorothiazide [Hctz -] 25 mg PO DAILY #30 tablet 07/14/18 Anemia: No Asthma: No Cancer: No Cardiac Disorders: No CVA: Yes (rt hemiparesis) COPD: No CHF: No Dementia: Yes Diabetes: No GI Disorders: No Disorders: No HTN: Yes Hypercholesterolemia: Yes Liver Disease: No Seizures: Yes (2018) Thyroid Disease: No - Surgical History Abdominal Surgery: No Appendectomy: No Cardiac Surgery: No Cholecystectomy: No Lung Surgery: No Neurologic Surgery: No Orthopedic Surgery: Yes (lft hip replacement 2016) - Immunization History Immunization Up to Date: (Unknown) - Psycho Social/Smoking Cessation Hx Smoking Status: No Smoking History: Unknown if ever smoked Have you smoked in the past 12 months: No Number of Cigarettes Smoked Daily: 0 Hx Alcohol Use: No Drug/Substance Use Hx: No Substance Use Type: None Review of Systems - Review of Systems Able to Perform ROS?: No (nonverbal) *Physical Exam - Vital Signs Last Vital Signs Temp Pulse Resp BP Pulse Ox 100.9 F H 84 22 H 99/32 L 100 08/14/19 19:13 08/14/19 19:13 08/14/19 19:13 08/14/19 19:13 08/14/19 19:13 - Physical Exam Comments: 08/14/19 20:16 Gen: appears to be distressed, ill-appearing HEENT: atraumatic, normocephalic Neck: trachea midline, supple CV: regular rate, regular rhythm Pulm: diffuse expiratory rhonchi Abd: soft, non-distended, non-tender, normal bowel sounds Skin: hot, dry MSK: full ROM, intact pulses Extr: no edema, no deformities Neuro: moving limbs spontaneously, unable to participate in assessment, [facility] ED Treatment Course - LABORATORY CBC & Chemistry Diagram: 08/14/19 19:30 08/14/19 19:30 - ADDITIONAL ORDERS Additional order review: Laboratory Results 08/14/19 08/14/19 08/14/19 19:30 19:30 19:30 PT with INR 11.90 INR 1.01 VBG pH 7.43 H POC VBG pCO2 48.2 POC VBG pO2 78.8 H VBG HCO3 31.7 H VBG O2 Sat (Sayra) 95.7 H VBG Base Excess 7.0 H Urine Color Yellow Urine Appearance Clear Urine pH 8.5 H D Ur Specific [place] 1.020 Urine Protein 2+ H Urine Glucose (UA) Negative Urine Ketones Negative Urine Blood Negative Urine Nitrite Negative Urine Bilirubin Negative Urine Urobilinogen 0.2 Ur Leukocyte Esterase Negative 08/14/19 19:30 RBC 3.22 L MCV 94.0 MCHC 33.2 RDW 16.3 H MPV 7.6 Neutrophils % 89.8 H D Lymphocytes % 3.9 L D Monocytes % 5.9 Eosinophils % 0.2 D Basophils % 0.2 - Medications Given in the ED: ED Medications Discontinued Medications Generic Name Dose Route Start Last Admin Trade Name Freq PRN Reason Stop Dose Admin Piperacillin Sod/Tazobactam 50 mls @ 100 mls/hr 08/14/19 19:33 08/14/19 20:06 Sod 3.375 gm/ Dextrose IVPB 08/14/19 20:02 100 mls/hr ONCE ONE Administration Protocol Vancomycin HCl 1,000 mg 08/14/19 19:32 08/14/19 20:06 Vancomycin (Pre-Docked) IVPB 08/14/19 19:33 1,000 mg ONCE ONE Administration Protocol Medical Decision Making - Medical Decision Making 08/14/19 19:30 Sepsis workup. - CBC, CMP, lactate - IV fluids - EKG, trop, CXR - blood cultures - Ofirmev, vanc/piptazo - likely admit for sepsis 08/14/19 20:09 EKG normal sinus at 72 bpm. 08/14/19 20:25 Na 129, Cl 92. 08/14/19 21:[address] Crespo, will plan to be admitted for sepsis with unknown etiology. Discharge - Discharge Information Problems reviewed: Yes Clinical Impression/Diagnosis: Sepsis Condition: Guarded - Admission Yes - Follow up/Referral - Patient Discharge Instructions - Post Discharge Activity
[2019-08-14] MEDS ORDERED: ACETAMINOPHEN 1000 MG/100 ML VIAL (NON FORMULARY) IVPB ONE (20:20)
--- NOTE | 2019-08-14 20:25 | PDOC ---
Attending Attestation - Resident Resident Name: Contreras Llamas - ED Attending Attestation I have performed the following: I have examined & evaluated the patient, The case was reviewed & discussed with the resident, I agree w/resident's findings & plan - HPI HPI: 08/14/19 20:41 89 YOF present with recent pneumonia/aspiration, s/p Acute Respiratory Failure, seizure disorder, hyponatremia, CVA, Parkinsons, HTN, dementia presenting with fever, Tmax 104 today at care home. History limited 2/2 dementia, reviewed NH records - Physicial Exam PE: 08/14/19 20:58 Agree with the resident's HPI and PE as documented in the electronic medical record. malaised appearing, nonverbal. demented. EOMI, PERRL, poor dentition, nl conjunctiva, anicteric; neck supple. lungs with bilateral rhonchi, RRR, abdomen soft nontender. Back nontender. CASAS x4, No peripheral edema. normal color for ethnicity, WWP. - Medical Decision Making 08/14/19 20:41 Vital Signs Temp Pulse Resp BP Pulse Ox 100.9 F H 66 20 109/43 L 100 08/14/19 19:13 08/14/19 20:14 08/14/19 20:14 08/14/19 20:14 08/14/19 20:14 vs reviewed, soft BP, +febrile demented at baseline given IVF - BP improved. IV tylenol for fever. vanc and zosyn for empiric coverage for infection/sepsis. source to be determined. recent aspiration pna labs and lytes with leukocytosis. lytes normal. baseline anemia, better than prior hyponatremia 129 at baseline. trop neg UA neg for infection cxr rotated, no acute chest pathology, similar t prior with interstitial markings f/u blood and urine cultures admit to Dr Crespo, sepsis/fever of unknown source/origin. medical management, continued care and monitor 08/14/19 20:42 08/14/19 21:22 08/14/19 21:22 Heart Score/ECG Review #1 ECG reviewed & interpreted by me at: 19:35 General ECG Interpretation: Sinus Rhythm, Normal Rate, Normal Intervals 08/14/19 21:22 nonspecific T wave abnormalities. rate [address] segment derangements.
[2019-08-14] MEDS ORDERED: ACETAMINOPHEN INJECTION 100 ML IVPB ONE (20:36)
[2019-08-14 22:24] LABS: URINE BACTERIA FEW /hpf (NEGATIVE); URINE RBC 0-3 /hpf (0-4); URINE WBC 0-3 /hpf (0-5)
[2019-08-15] MEDS ORDERED: ACETAMINOPHEN 325 MG TABLET (FP) PO PRN (02:52)
[2019-08-15] MEDS ORDERED: VANCOMYCIN 1 GRAM (PRE-DOCKED) 1,000 MG/250 ML BAG IVPB SCH ×2 (04:00→16:00)
[2019-08-15 04:27] VITALS: BMI 20.7
[2019-08-15 08:15] LABS: BASO % 0.3 % (0-2.0); EOS % 0.9 % (0-4.5); HEMATOCRIT 23.6 % (32.4-45.2); HEMOGLOBIN 8.1 GM/dL (10.7-15.3); LYMPH % 9.1 % (8-40); MCH 31.8 pg (25.7-33.7); MCHC 34.3 g/dl (32.0-36.0); MEAN CELL VOLUME 92.8 fl (80-96); MEAN PLT VOLUME 8.1 fl (7.5-11.1); MONO % 8.2 % (3.8-10.2); NEUT % 81.5 % (42.8-82.8); PLATELET COUNT 482 K/MM3 (134-434); RBC 2.54 M/mm3 (3.60-5.2); RDW 16.6 % (11.6-15.6); WHITE BLOOD COUNT 16.3 K/mm3 (4.0-10.0)
[2019-08-15 08:47] LABS: ALBUMIN 1.8 g/dl (3.4-5.0); BILIRUBIN,TOTAL 0.2 mg/dL (0.2-1); BLOOD UREA NITROGEN 11.5 mg/dL (7-18); CREATININE 0.5 mg/dL (0.55-1.3); POTASSIUM 4.1 mmol/L (3.5-5.1); TOT PROT 5.7 g/dl (6.4-8.2)
[2019-08-15] MEDS ORDERED: PIPERACILLIN/TAZOB 3.375 GM 3.375 GM in DEXTROSE 5%-WATER - 50 ML IVPB SCH (10:00)
[2019-08-15] MEDS ORDERED: levETIRAcetam 250 MG TABLET (FP) PO SCH (10:00)
[2019-08-15] MEDS ORDERED: FLU VACCINE QUAD 60 MCG/0.5 ML (MDV 19-20) IM ONE (10:00)
[2019-08-15] MEDS ORDERED: PIPERACILLIN/TAZOBACTAM 3.375 GM VIAL IVPB ONE ×2 (11:07→16:11)
[2019-08-15] MEDS ORDERED: DEXTROSE 5%-WATER - 50 ML IVPB ONE ×2 (11:07→16:11)
[2019-08-15] MEDS: VALPROATE SODIUM 250 MG/5 ML UNIT DOSE CUP PO SCH ×2 (11:22→22:36)
[2019-08-15] MEDS: levETIRAcetam 500 MG TABLET (FP) PO SCH ×2 (11:22→22:35)
[2019-08-15] MEDS: HYDROCHLOROTHIAZIDE 25 MG TABLET (FP) PO SCH (11:22)
[2019-08-15] MEDS: HEPARIN NA (PORCINE) 5,000 UNITS/ML 1ML VIAL SQ SCH ×2 (11:23→22:35)
[2019-08-15] MEDS: CARBIDOPA/LEVODOPA 25/100 TABLET (FP) PO SCH ×2 (11:24→22:35)
[2019-08-15] MEDS ORDERED: PT OWN MED DRAWER 7, Y5N ONE ×2 (11:26→22:33)
[2019-08-15] MEDS: PHENYTOIN 50 MG TAB.CHEW PO SCH ×2 (11:28→22:36)
--- NOTE | 2019-08-15 11:35 | EKG ---
Test Reason : Blood Pressure : / mmHG Vent. Rate : 072 BPM Atrial Rate : 072 BPM P-R Int : 156 ms QRS Dur : 068 ms QT Int : 410 ms P-R-T Axes : 066 046 080 degrees QTc Int : 448 ms NORMAL SINUS RHYTHM NORMAL ECG WHEN COMPARED WITH ECG OF 22-JUL-2019 15:00, NONSPECIFIC T WAVE ABNORMALITY NO LONGER EVIDENT IN INFERIOR LEADS NONSPECIFIC T WAVE ABNORMALITY, IMPROVED IN ANTERIOR LEADS Confirmed by SHARMAINE RIGGS MD ([id number]) on 08/15/2019 11:35:18 AM Referred By: Confirmed By:SHARMAINE RIGGS MD
--- NOTE | 2019-08-15 12:02 | PN ---
Progress Note (short form) - Note Progress Note: ID consult dictated Just discharged 2 days ago to the NH now readmitted with fever to 102 she is nonverbal doesnot follow commands still some facial twitching noted fevers- started on vanco/zosyn for sepsis cannot r/o left LL infiltrate f/u cultures continue zosyn MRSA nares screen ua is negative seizure disorder dementia Problem List - Problems (1) Fever Code(s): R50.9 - FEVER, UNSPECIFIED (2) Pneumonia Code(s): J18.9 - PNEUMONIA, UNSPECIFIED ORGANISM (3) Seizure disorder Code(s): G40.909 - EPILEPSY, UNSP, NOT INTRACTABLE, WITHOUT STATUS EPILEPTICUS (4) Dementia Code(s): F03.90 - UNSPECIFIED DEMENTIA WITHOUT BEHAVIORAL DISTURBANCE
--- NOTE | 2019-08-15 14:10 | CONS ---
DATE OF CONSULTATION: DATE OF DICTATION: 08/15/2019 REQUESTED BY: Erlinda Crespo MD This is an 89-year-old woman who is status post a lengthy admission from July 06 until August 12. She was originally admitted for seizures. She developed acute respiratory failure in the hospital and had breakthrough seizures. She had an episode of aspiration pneumonia as well while in the hospital; treated with several days of Zosyn, followed by Augmentin. She ultimately had a G-tube placed and was discharged off antibiotics on August 12 to the [facility]. At that time, her white count was 8000. She is now readmitted with fever of 102 at the [facility]. The patient is nonverbal, not following any commands, and unable to contribute to this history. PAST MEDICAL HISTORY: Notable for this prolonged hospitalization. 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 SURGICAL HISTORY: Notable for left hip replacement and recent G-tube insertion. She had, during this recently lengthy admission, acute respiratory failure, aspiration pneumonia, and recurrent seizures. She has no known drug allergies. MEDICATIONS: Keppra, Seroquel, Benicar, hydrochlorothiazide, Lexapro, Aricept, Sinemet. She has a history of Parkinson disease as well. FAMILY HISTORY: Noncontributory. SOCIAL HISTORY: She was transferred from the hospital to the [facility]. Prior to that, she was living at home with her family. She is and she has a very devoted spouse. There is no history of any cigarette or substance use. REVIEW OF SYSTEMS: Not available. PHYSICAL EXAMINATION: Vital Signs: She is afebrile. Her temperature maximum was 102 at the [facility]; she was 100.9 here. Current temperature is 98.8, pulse is 60, blood pressure 130/67, respiratory rate of 20. She is saturating 99% on 2 L and is not in any distress. HEENT: She is normocephalic. She still has some intermittent facial twitches. She has nasal cannula for oxygen. She will not open her mouth. Lungs: Diminished breath sounds at both bases, left greater than right. Heart: Regular rate and rhythm. Abdomen: Soft. The G-tube site is clean. She has no skin breakdown. Extremities: She has 1+ edema of both hands and trace edema of her feet. LABORATORIES: Notable for a white count of 16.3, hemoglobin 8.1, platelets of 482. BUN is 11 and creatinine 0.5. AST of 49, ALT of 10, alkaline phosphatase of 65, albumin is 1.8. Sodium of 127. Urinalysis is negative for leukocyte esterase and white cells. Cultures are pending. CHEST X-RAY: Cardiomegaly with a dense area behind the left heart, which could potentially be fluid and/or atelectasis or infiltrate. SUMMARY: This is an 89-year-old woman just discharged 2 days ago, who I suspect could potentially have pneumonia. She has no signs of intraabdominal process or urinary tract infection. In the setting of fever, I would continue her on Zosyn for aspiration, given her mental status issues. I would obtain a MRSA screen of her nose and follow these cultures as well. She has a history of seizure disorder and is having some intermittent twitching, so seizures need to be better controlled. OVERALL PROGNOSIS: Quite poor. RENETTA TORO M.D. [id number]
[2019-08-15] MEDS: PIPERACILLIN/TAZOB 3.375 GM 3.375 GM in DEXTROSE 5%-WATER - 50 ML IVPB SCH (17:07)
[2019-08-15] MEDS ORDERED: DONEPEZIL HCL 10 MG TABLET (FP) PO SCH (22:00)
--- NOTE | 2019-08-15 22:14 | HP ---
Admitting History and Physical - Past Medical History LAUNDRY AGENT: Yes: Alzheimer's, CVA, Dementia, Seizure Cardiovascular: Yes: HTN Pulmonary: Yes: Pneumonia Heme/Onc: Yes: Anemia Psych: Yes: Depression Musculoskeletal: Yes: Other (kyphoscoliosis) - Past Surgical History Past Surgical History: Yes: None - Advance Directives Advance Directives: Yes: DNR, [facility]OLST - Smoking History Smoking history: Unknown if ever smoked Have you smoked in the past 12 months: No Aproximately how many cigarettes per day: 0 - Alcohol/Substance Use Hx Alcohol Use: No Home Medications - Allergies Allergies/Adverse Reactions: Allergies Allergy/AdvReac Type Severity Reaction Status Date / Time No Known Allergies Allergy Verified 08/14/19 19:26 - Home Medications Home Medications: Ambulatory Orders Donepezil HCl [Aricept] 10 mg PO DAILY 07/05/18 Escitalopram Oxalate [Lexapro -] 10 mg PO DAILY 07/05/18 Olmesartan Medoxomil [Benicar] 20 mg PO DAILY 07/05/18 Quetiapine Fumarate [Seroquel -] 25 mg PO BID 07/05/18 Acetaminophen [Tylenol .Regular Strength -] 650 mg PO Q6H PRN tablet 07/12/18 Carbidopa/Levodopa 25/100 [Sinemet 25/100 -] 1 each PO BID tablet 07/12/18 levETIRAcetam [Keppra -] 750 mg PO BID tablet 07/12/18 Hydrochlorothiazide [Hctz -] 25 mg PO DAILY #30 tablet 07/14/18 Physical Examination Vital Signs: Vital Signs Temperature 97.6 F 08/15/19 18:00 Pulse Rate 68 08/15/19 18:00 Respiratory Rate 18 08/15/19 18:00 Blood Pressure 147/61 08/15/19 18:00 O2 Sat by Pulse Oximetry (%) 99 08/15/19 11:35 Labs: CBC, BMP 08/15/19 06:50 08/15/19 06:50
[2019-08-16] MEDS ORDERED: PIPERACILLIN/TAZOBACTAM 3.375 GM VIAL IVPB ONE ×3 (01:17→16:58)
[2019-08-16] MEDS ORDERED: DEXTROSE 5%-WATER - 50 ML IVPB ONE ×3 (01:18→16:58)
[2019-08-16] MEDS: PIPERACILLIN/TAZOB 3.375 GM 3.375 GM in DEXTROSE 5%-WATER - 50 ML IVPB SCH ×3 (01:57→17:38)
[2019-08-16] MEDS: HEPARIN NA (PORCINE) 5,000 UNITS/ML 1ML VIAL SQ SCH ×2 (11:26→22:28)
--- NOTE | 2019-08-16 11:28 | PN ---
Progress Note (short form) - Note Progress Note: low grade temp this am no twitching noted looks comfortable daughter at bedside she is concerned that mom bounced back to the hospital so soon- wondering why [facility] could not take care of her fever [place] too far for her father to visit who wants to visit his daily Vital Signs Period Temp Pulse Resp BP Sys/[place] Pulse Ox Last 24 Hr 97.6 F-100.3 F 64-84 18-20 119-160/61-85 99-99 cor-rrr lungs decreased bs at bases abd- +GT ext less edema no twitching CBC, BMP 08/15/19 06:50 08/15/19 06:50 Microbiology 08/14/19 19:30 Urine - Urine Clean Catch Urine Culture - Final NO GROWTH OBTAINED 08/14/19 19:30 Blood - Peripheral Venous Blood Culture - Preliminary NO GROWTH OBTAINED AFTER 24 HOURS, INCUBATION TO CONTINUE FOR 4 DAYS. 08/14/19 19:30 Blood - Peripheral Venous Blood Culture - Preliminary NO GROWTH OBTAINED AFTER 24 HOURS, INCUBATION TO CONTINUE FOR 4 DAYS. a/p fevers ?aspiration ?RLL infiltrate continue zosyn chest ct seizure disorder dementia d/w daughter at bedside Problem List - Problems (1) Fever Code(s): R50.9 - FEVER, UNSPECIFIED (2) Pneumonia Code(s): J18.9 - PNEUMONIA, UNSPECIFIED ORGANISM (3) Seizure disorder Code(s): G40.909 - EPILEPSY, UNSP, NOT INTRACTABLE, WITHOUT STATUS EPILEPTICUS (4) Dementia Code(s): F03.90 - UNSPECIFIED DEMENTIA WITHOUT BEHAVIORAL DISTURBANCE
[2019-08-16] MEDS ORDERED: ACETAMINOPHEN 650 MG/20.3 ML ORAL SOLUTION (CUPS) GT PRN (12:13)
[2019-08-16] MEDS: VALPROATE SODIUM 250 MG/5 ML UNIT DOSE CUP GT SCH ×2 (12:35→22:28)
[2019-08-16] MEDS: PHENYTOIN 50 MG TAB.CHEW GT SCH ×2 (12:35→22:28)
[2019-08-16] MEDS: CARBIDOPA/LEVODOPA 25/100 TABLET (FP) GT SCH ×2 (12:36→22:46)
[2019-08-16] MEDS: HYDROCHLOROTHIAZIDE 25 MG TABLET (FP) GT SCH (12:37)
[2019-08-16] MEDS: VALPROATE SODIUM 250 MG/5 ML UNIT DOSE CUP PO SCH (12:42)
[2019-08-16] MEDS: levETIRAcetam 500 MG/5 ML ORAL SOLUTION (UNIT-DOSE CUPS) GT SCH ×2 (12:42→22:28)
[2019-08-16] MEDS: PHENYTOIN 50 MG TAB.CHEW PO SCH (12:42)
[2019-08-16] MEDS: CARBIDOPA/LEVODOPA 25/100 TABLET (FP) PO SCH (12:43)
[2019-08-16] MEDS: levETIRAcetam 500 MG TABLET (FP) PO SCH (12:43)
[2019-08-16] MEDS: HYDROCHLOROTHIAZIDE 25 MG TABLET (FP) PO SCH (12:43)
--- NOTE | 2019-08-16 22:25 | PN ---
Progress Note, Physician - Current Medication List Current Medications: Active Medications Acetaminophen (Tylenol Oral Solution -) 650 mg GT Q6H PRN PRN Reason: FEVER Carbidopa/Levodopa (Sinemet 25/100 -) 1 each GT BID [facility] Last Admin: 08/16/19 12:36 Dose: 1 each Donepezil HCl (Aricept -) 10 mg GT HS [facility] Heparin Sodium (Porcine) (Heparin -) 5,000 unit SQ BID [facility] Last Admin: 08/16/19 11:26 Dose: 5,000 unit Hydrochlorothiazide (Hctz -) 25 mg GT DAILY [facility] Last Admin: 08/16/19 12:37 Dose: 25 mg Piperacillin Sod/Tazobactam (Sod 3.375 gm/ Dextrose) 50 mls @ 100 mls/hr IVPB Q8H-IV [facility]; Protocol Last Admin: 08/16/19 17:38 Dose: 100 mls/hr Levetiracetam (Keppra Oral Solution -) 500 mg GT BID [facility] Last Admin: 08/16/19 12:42 Dose: 500 mg Phenytoin Sodium (Dilantin Chewable Tablet -) 100 mg GT BID [facility] Last Admin: 08/16/19 12:35 Dose: 100 mg Valproate Sodium (Depakene -) 750 mg GT BID [facility] Last Admin: 08/16/19 12:35 Dose: 750 mg - Objective Vital Signs: Vital Signs Temperature 98.5 F 08/16/19 18:00 Pulse Rate 64 08/16/19 18:00 Respiratory Rate 20 08/16/19 18:00 Blood Pressure 100/75 08/16/19 18:00 O2 Sat by Pulse Oximetry (%) 99 08/16/19 09:00 Labs: CBC, BMP 08/15/19 06:50 08/15/19 06:50 INR, PTT INR 1.01 (0.83-1.09) 08/14/19 19:30
[2019-08-16] MEDS ORDERED: PT OWN MED DRAWER 7, Y5N ONE (22:26)
[2019-08-16] MEDS: DONEPEZIL HCL 10 MG TABLET (FP) GT SCH (22:28)
[2019-08-17] MEDS ORDERED: PIPERACILLIN/TAZOBACTAM 3.375 GM VIAL IVPB ONE ×3 (01:10→17:17)
[2019-08-17] MEDS ORDERED: DEXTROSE 5%-WATER - 50 ML IVPB ONE ×3 (01:11→17:17)
[2019-08-17] MEDS: PIPERACILLIN/TAZOB 3.375 GM 3.375 GM in DEXTROSE 5%-WATER - 50 ML IVPB SCH ×3 (02:10→17:39)
[2019-08-17 08:27] LABS: BASO % 0.4 % (0-2.0); EOS % 0.7 % (0-4.5); HEMATOCRIT 21.7 % (32.4-45.2); HEMOGLOBIN 7.5 GM/dL (10.7-15.3); LYMPH % 8.5 % (8-40); MCH 31.8 pg (25.7-33.7); MCHC 34.6 g/dl (32.0-36.0); MEAN PLT VOLUME 7.9 fl (7.5-11.1); MONO % 11.3 % (3.8-10.2); NEUT % 79.1 % (42.8-82.8); PLATELET COUNT 477 K/MM3 (134-434); RBC 2.36 M/mm3 (3.60-5.2); RDW 16.6 % (11.6-15.6); WHITE BLOOD COUNT 14.7 K/mm3 (4.0-10.0)
[2019-08-17 08:47] LABS: ALBUMIN 1.8 g/dl (3.4-5.0); BILIRUBIN,TOTAL 0.2 mg/dL (0.2-1); BLOOD UREA NITROGEN 13.2 mg/dL (7-18); CREATININE 0.5 mg/dL (0.55-1.3); POTASSIUM 3.6 mmol/L (3.5-5.1); TOT PROT 5.9 g/dl (6.4-8.2)
[2019-08-17] MEDS ORDERED: PT OWN MED DRAWER 7, Y5N ONE (10:52)
[2019-08-17] MEDS: PHENYTOIN 50 MG TAB.CHEW GT SCH ×2 (10:56→22:28)
[2019-08-17] MEDS: HYDROCHLOROTHIAZIDE 25 MG TABLET (FP) GT SCH (10:56)
[2019-08-17] MEDS: levETIRAcetam 500 MG/5 ML ORAL SOLUTION (UNIT-DOSE CUPS) GT SCH ×2 (10:56→22:54)
[2019-08-17] MEDS: HEPARIN NA (PORCINE) 5,000 UNITS/ML 1ML VIAL SQ SCH ×2 (10:56→22:24)
[2019-08-17] MEDS: CARBIDOPA/LEVODOPA 25/100 TABLET (FP) GT SCH ×2 (10:56→22:28)
[2019-08-17] MEDS: VALPROATE SODIUM 250 MG/5 ML UNIT DOSE CUP GT SCH ×2 (10:56→22:54)
[2019-08-17] MEDS: VANCOMYCIN 1 GM in D5W (PRE-DOCKED) 1,000 MG/250 ML IVPB SCH (16:19)
--- NOTE | 2019-08-17 19:55 | PN ---
Progress Note, Physician - Current Medication List Current Medications: Active Medications Acetaminophen (Tylenol Oral Solution -) 650 mg GT Q6H PRN PRN Reason: FEVER Carbidopa/Levodopa (Sinemet 25/100 -) 1 each GT BID [facility] Last Admin: 08/17/19 10:56 Dose: 1 each Donepezil HCl (Aricept -) 10 mg GT HS [facility] Last Admin: 08/16/19 22:28 Dose: 10 mg Heparin Sodium (Porcine) (Heparin -) 5,000 unit SQ BID [facility] Last Admin: 08/17/19 10:56 Dose: 5,000 unit Hydrochlorothiazide (Hctz -) 25 mg GT DAILY [facility] Last Admin: 08/17/19 10:56 Dose: 25 mg Piperacillin Sod/Tazobactam (Sod 3.375 gm/ Dextrose) 50 mls @ 100 mls/hr IVPB Q8H-IV [facility]; Protocol Last Admin: 08/17/19 17:39 Dose: 100 mls/hr Levetiracetam (Keppra Oral Solution -) 500 mg GT BID [facility] Last Admin: 08/17/19 10:56 Dose: 500 mg Phenytoin Sodium (Dilantin Chewable Tablet -) 100 mg GT BID [facility] Last Admin: 08/17/19 10:56 Dose: 100 mg Valproate Sodium (Depakene -) 750 mg GT BID [facility] Last Admin: 08/17/19 10:56 Dose: 750 mg Vancomycin HCl (Vancomycin (Pre-Docked)) 1,000 mg IVPB DAILY [facility]; Protocol Last Admin: 08/17/19 16:19 Dose: 1,000 mg - Objective Vital Signs: Vital Signs Temperature 98.2 F 08/17/19 18:00 Pulse Rate 70 08/17/19 18:00 Respiratory Rate 18 08/17/19 18:00 Blood Pressure 148/60 08/17/19 18:00 O2 Sat by Pulse Oximetry (%) 100 08/17/19 09:00 Labs: CBC, BMP 08/17/19 06:27 08/17/19 06:27 INR, PTT INR 1.01 (0.83-1.09) 08/14/19 19:30
[2019-08-17] MEDS: DONEPEZIL HCL 10 MG TABLET (FP) GT SCH (22:28)
[2019-08-18] MEDS ORDERED: PIPERACILLIN/TAZOBACTAM 3.375 GM VIAL IVPB ONE ×2 (00:44→08:53)
[2019-08-18] MEDS ORDERED: DEXTROSE 5%-WATER - 50 ML IVPB ONE ×2 (00:44→08:53)
[2019-08-18] MEDS: PIPERACILLIN/TAZOB 3.375 GM 3.375 GM in DEXTROSE 5%-WATER - 50 ML IVPB SCH ×2 (01:19→09:50)
[2019-08-18] MEDS ORDERED: PT OWN MED DRAWER 7, Y5N ONE (08:52)
[2019-08-18] MEDS: HYDROCHLOROTHIAZIDE 25 MG TABLET (FP) GT SCH (09:50)
[2019-08-18] MEDS: CARBIDOPA/LEVODOPA 25/100 TABLET (FP) GT SCH (09:50)
[2019-08-18] MEDS: HEPARIN NA (PORCINE) 5,000 UNITS/ML 1ML VIAL SQ SCH (09:50)
[2019-08-18] MEDS: VALPROATE SODIUM 250 MG/5 ML UNIT DOSE CUP GT SCH (09:51)
[2019-08-18] MEDS: levETIRAcetam 500 MG/5 ML ORAL SOLUTION (UNIT-DOSE CUPS) GT SCH (09:51)
[2019-08-18] MEDS: PHENYTOIN 50 MG TAB.CHEW GT SCH (09:53)
[2019-08-18] MEDS: VANCOMYCIN 1 GM in D5W (PRE-DOCKED) 1,000 MG/250 ML IVPB SCH (10:43)
--- NOTE | 2019-08-18 13:02 | DS ---
Physical Examination Vital Signs: Vital Signs Temperature 100.8 F H 08/18/19 10:00 Pulse Rate 74 08/18/19 10:00 Respiratory Rate 18 08/18/19 10:00 Blood Pressure 138/57 L 08/18/19 10:00 O2 Sat by Pulse Oximetry (%) 96 08/18/19 09:00 Neck: Yes: WNL, Supple Cardiovascular: Yes: WNL, Regular Rate and Rhythm Respiratory: Yes: Diminished Gastrointestinal: Yes: WNL, Normal Bowel Sounds, Soft, Other ((+) PEG) Edema: LUE: 1+, RUE: 1+ Labs: CBC, BMP 08/17/19 06:27 08/17/19 06:27 Discharge Summary Problems reviewed: Yes Reason For Visit: SEPSIS Current Active Problems Fever (Acute) Sepsis (Acute) Dementia Parkinson's dz Anemia Pneumonia Hospital Course: Pt is an 89 y/o female w/ PMH sigbnificant for dementia, Parkinson's dz, HTN and seizuire dz. Pt now presented from SNF for spiking fever and was found to have RLL infiltrate. Pt was seen by ID and started on IV vanco/zosyn. Pt recently was discharged from [facility] after being treated for new onset seizures and respiratory failure. During that hospitalization pt had PEG placement. Pt is now getting feedings at 42 cc/hr. Pt is DNR/DNI and as per family request pt is now to be transferred to hospice. however pt will need IV vanco/zosyn for another 7 days. Condition: Guarded - Instructions Diet, Activity, Other Instructions: Patient is receiving Active 1.2 at 42cc/hr Disposition: [facility] FACILITY - Home Medications Comprehensive Discharge Medication List: Ambulatory Orders Donepezil HCl [Aricept] 10 mg PO DAILY 07/05/18 Acetaminophen [Tylenol .Regular Strength -] 650 mg PO Q6H PRN tablet 07/12/18 Carbidopa/Levodopa 25/100 [Sinemet 25/100 -] 1 each PO BID tablet 07/12/18 levETIRAcetam [Keppra -] 750 mg PO BID tablet 07/12/18 Hydrochlorothiazide [Hctz -] 25 mg PO DAILY #30 tablet 07/14/18 Acetaminophen Oral Solution [Tylenol Oral Solution -] 650 mg GT Q6H PRN soln.oral 08/18/19 Dextrose 5%-Water - [D5w 50 ml Mini Bag] 10 ml IVPB Q8H-IV ivpb 08/18/19 Phenytoin [Dilantin Chewable Tablet -] 100 mg GT BID tab.chew 08/18/19 Piperacillin/Tazob 3.375 gm [Zosyn -] 3.375 gm IVPB Q8H-IV vial 08/18/19 Valproate Sodium [Depakene -] 750 mg GT BID cup 08/18/19 Vancomycin 1 Gram (Pre-Docked) [Vancomycin (Pre-Docked)] 1,000 mg IVPB DAILY bag 08/18/19 levETIRAcetam [Keppra Oral Solution -] 500 mg GT BID cup 08/18/19
[2019-08-18 15:24] VITALS: BP 131/50; PULSE 65; TEMP 98.5
== END 2019-08-18 17:12 | disposition hospice, inpatient (51) | DRG 871 ==
LOC: JER 18:54 → JERBED 19:35 → J5S 08-15 00:29 → J7W 08-17 20:47
PROVIDERS: ADMIT Internal Medicine; ATTEND Internal Medicine
DX: A41.9 Sepsis, unspecified organism (principal); J69.0 Pneumonitis due to inhalation of food and vomit; G81.91 Hemiplegia, unspecified affecting right dominant side; E87.1 Hypo-osmolality and hyponatremia; F03.90 Unspecified dementia, unspecified severity, without behavioral disturbance, psychotic disturbance, mood disturbance, and anxiety; I10 Essential (primary) hypertension; R50.9 Fever, unspecified; G20 Parkinson's disease; D72.829 Elevated white blood cell count, unspecified
CPT/HCPCS: 36415; 71045-TC-FY; 71250-TC; 80053; 81003; 82803; 83605; 84484; 85025; 85610; 85730; 87040; 87081; 87086; 93005; 93010; 99285-25; J0131; J1644